=== PATIENT | female | born 1975 | race Caucasian/White ===

== ENCOUNTER 2017-05-29 22:09 | Emergency (ER) | payer MEDICAID, SELFPAY ==
[2017-05-29 22:11] VITALS: BP 102/73; PULSE 84; RESP 11; TEMP 36.1; O2SAT 91; BMI 37.6
[2017-05-29 22:32] LABS: Absolute Lymphocyte Count 3.66 X10^3/ul (0.83-4.51); Absolute Neutrophil Count 4.7 X10^3/uL (2.0-7.7); Basophil# 0.05 X10^3/uL; Basophil% 0.6 % (0-1); Eosinophil# 0.32 X10^3/uL; Eosinophils% 3.6 % (0-5); Hematocrit 40.4 % (37-47); Hemoglobin 13.7 g/dl (12.0-15.0); Lymphocyte # 3.66 X10^3/ul (4.0); Lymphocyte % 40.7 % (19-41); Mean Corp Hgb Conc 33.9 g/gl (32-36); Mean Corpuscular Hgb 31.5 pg (27.0-32.0); Mean Corpuscular Volume 92.9 fL (81-99); Mean Platelet Vol. 9.2 fl (6.2-12.0); Monocyte% 3.3 % (0-10); Neutrophil # 4.65 X10^3/uL (2.7-7.7); Neutrophil % 51.7 % (47-70); POSITIVE COUNT NO; POSITIVE DIFFERENTIAL NO; POSITIVE MORPHOLOGY NO; Platelet Count 216 K/mm3 (150-450); RBC Distribution Width CV 12.7 % (11.6-14.6); RBC Distribution Width SD 42.8 fl (35.1-43.9); Red Blood Count 4.35 M/mm3 (4.2-5.4)
[2017-05-29 22:54] LABS: Anion Gap 11 (5-15); BUN 7 mg/dL (7-18); BUN/Creat Ratio 12.5 RATIO (10-20); Chloride 106 mmol/L (98-107); Creatinine, Serum 0.56 mg/dL (0.55-1.02); EST Glomerular Filtration Rate 127 mL/min (>60); Est Glom Filt Rate - Afr Amer 154 mL/min (>60); Estimated Creatinine Clearance 104.56 ml/min; Glucose 86 mg/dL (74-106); Potassium 3.2 mmol/L (3.5-5.1); Sodium Level 142 mmol/L (136-145)
[2017-05-29 23:19] VITALS: BP 108/93; PULSE 105; RESP 17; O2SAT 97
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
[2017-05-29 23:47] LABS: Pregnancy, Serum, hCG Quali. NEGATIVE Negative (0-9 Nonpreg)
[2017-05-29 23:49] LABS: Amphetamine Urine VISTA NEGATIVE (<1000 ng/mL); Barbiturate Urine VISTA NEGATIVE (< 200 ng/mL); Benzodiazepine Urine VISTA NEGATIVE (< 200 ng/mL); Cocaine Urine VISTA NEGATIVE (< 300 ng/mL); Ecstacy Urine VISTA NEGATIVE (< 500 ng/mL); Methadone Urine VISTA NEGATIVE (< 300 ng/mL); PCP Urine VISTA NEGATIVE (< 25 ng/mL); THC Urine VISTA NEGATIVE (< 50 ng/mL); Vista UDS pH Range 6
[2017-05-30] VITALS (10 sets, daily range): BP systolic 87–129; BP diastolic 54–87; PULSE 63–89; RESP 15–19; O2SAT 94–98
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
== END 2017-05-30 08:22 | disposition home or self-care (01) ==
PROVIDERS: Emergency Provider Emergency Medicine
DX: F10.129 Alcohol abuse with intoxication, unspecified (principal); Y90.9 Presence of alcohol in blood, level not specified
CPT/HCPCS: 51702; 80048; 80307; 80320; 84703; 85025; 99285; J7030; A4216; G0480

== ENCOUNTER 2017-08-11 16:18 | Emergency (ER) | payer MEDICAID, SELFPAY ==
[2017-08-11 16:22] VITALS: BP 118/86; PULSE 100; PULSE 99; RESP 14; TEMP 36.7; O2SAT 96; BMI 35.9
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
[2017-08-11 17:13] LABS: Bacteria 0 SEEN /hpf (None Seen); Mucous, Urine 0 SEEN /hpf (<or=2+); White Blood Cells 0 SEEN /hpf (0-5)
[2017-08-11] MEDS: 0.9% Normal Saline 1,000 ML 150 ML IV (17:13)
[2017-08-11] MEDS: levETIRAcetam IV 1,000 MG/100 ML BAG 400 MG IV (17:13)
[2017-08-11 17:19] LABS: Absolute Lymphocyte Count 2.32 X10^3/ul (0.83-4.51); Absolute Neutrophil Count 3.6 X10^3/uL (2.0-7.7); Basophil# 0.07 X10^3/uL; Eosinophil# 0.37 X10^3/uL; Eosinophils% 5.5 % (0-5); Hematocrit 39.7 % (37-47); Hemoglobin 13.8 g/dl (12.0-15.0); Lymphocyte # 2.32 X10^3/ul (4.0); Lymphocyte % 34.8 % (19-41); Mean Corp Hgb Conc 34.8 g/gl (32-36); Mean Corpuscular Hgb 31.7 pg (27.0-32.0); Mean Corpuscular Volume 91.1 fL (81-99); Mean Platelet Vol. 9.4 fl (6.2-12.0); Monocyte# 0.27 X10^3/uL; Neutrophil # 3.63 X10^3/uL (2.7-7.7); Neutrophil % 54.6 % (47-70); Platelet Count 196 K/mm3 (150-450); RBC Distribution Width CV 13.5 % (11.6-14.6); RBC Distribution Width SD 44.8 fl (35.1-43.9); Red Blood Count 4.36 M/mm3 (4.2-5.4); White Blood Count 6.7 K/mm3 (4.4-11.0)
[2017-08-11 17:21] LABS: Anion Gap 9 (5-15); BUN 6 mg/dL (7-18); BUN/Creat Ratio 9.6 RATIO (10-20); Calcium,Total 8.1 mg/dL (8.5-10.1); Chloride 109 mmol/L (98-107); Creatinine, Serum 0.62 mg/dL (0.55-1.02); EST Glomerular Filtration Rate 112 mL/min (>60); Est Glom Filt Rate - Afr Amer 135 mL/min (>60); Estimated Creatinine Clearance 85.77 ml/min; Glucose 95 mg/dL (74-106); Potassium 3.7 mmol/L (3.5-5.1); Sodium Level 142 mmol/L (136-145)
[2017-08-11 17:21] LABS: Color, Urine Yellow (Yellow); Glucose, Dipstick Normal (Normal); Ketone-Dipstick Negative (Negative); Leukocyte Esterase-Dipstick Negative /ul (Negative); Nitrite-Dipstick Negative (Negative); Occult Blood-Urine 10 /ul (Negative); Protein-Dipstick Negative (Negative); Specific Gravity, Urine 1.005 (1.002-1.030); Urine Bilirubin Dipstick Negative (Negative); Urine Clarity Sl. Cloudy (Clear); Urine Urobilinogen Normal (Normal)
[2017-08-11 17:23] LABS: POSITIVE COUNT NO; POSITIVE DIFFERENTIAL NO; POSITIVE MORPHOLOGY NO
[2017-08-11 17:28] LABS: Red Blood Cells-Urine 0-5 SEEN /hpf (0-5); Squamous Epithelial Cells - UA 0-5 SEEN /hpf (5-10)
[2017-08-11 17:29] LABS: Amphetamine Urine VISTA NEGATIVE (<1000 ng/mL); Barbiturate Urine VISTA NEGATIVE (< 200 ng/mL); Benzodiazepine Urine VISTA NEGATIVE (< 200 ng/mL); Cocaine Urine VISTA NEGATIVE (< 300 ng/mL); Ecstacy Urine VISTA NEGATIVE (< 500 ng/mL); Methadone Urine VISTA NEGATIVE (< 300 ng/mL); PCP Urine VISTA NEGATIVE (< 25 ng/mL); THC Urine VISTA NEGATIVE (< 50 ng/mL); Vista UDS pH Range 6
[2017-08-11 17:33] LABS: Pregnancy, Serum, hCG Quali. NEGATIVE Negative (0-9 Nonpreg)
--- NOTE | 2017-08-11 18:05 | ED.RN ---
LAB CALLED WITH CRITICAL RESULT. ETOH LEVEL OF 374. DR. KELLER NOTIFIED FACE TO FACE OF RESULT. NO ORDERS GIVEN.
[2017-08-11 18:50] VITALS: BP 120/80; PULSE 95; RESP 14; O2SAT 99
[2017-08-11 21:10] VITALS: BP 128/70; PULSE 85; RESP 14; O2SAT 99
--- NOTE | 2017-08-11 23:00 | ED.DEP ---
ED Disposition - Plan for ED Patient: Disposition: Home or Assisted Living Chief Complaint: ETOH Intox Instructions: ED Alcohol Abuse Prescriptions: Levetiracetam [Keppra] 500 mg PO BID #60 tablet Referrals: Maryanne Carrion MD [STAFF PHYSICIAN] -
[2017-08-11 23:27] VITALS: BP 117/74; PULSE 80; RESP 18; O2SAT 96
[2017-08-12 01:12] VITALS: RESP 14
[2017-08-12 03:17] VITALS: RESP 12
[2017-08-12 05:28] VITALS: RESP 14
[2017-08-12 08:23] VITALS: BP 140/80; PULSE 88; RESP 20; O2SAT 98
[2017-08-12 09:28] VITALS: BP 160/84; PULSE 78; RESP 20
== END 2017-08-12 09:29 | disposition home or self-care (01) ==
PROVIDERS: Emergency Provider Emergency Medicine
DX: F10.129 Alcohol abuse with intoxication, unspecified (principal); Y90.9 Presence of alcohol in blood, level not specified; J44.9 Chronic obstructive pulmonary disease, unspecified; G40.909 Epilepsy, unspecified, not intractable, without status epilepticus; Z87.19 Personal history of other diseases of the digestive system; Z79.899 Other long term (current) drug therapy; Z72.0 Tobacco use
CPT/HCPCS: 80048; 80307; 80320; 81001; 84703; 85025; 96361; 96365; 96366; 99285; J7030; A4216; G0480

== ENCOUNTER 2017-08-22 23:55 | Emergency (ER) | payer MEDICAID, SELFPAY ==
[2017-08-22 23:56] VITALS: BP 111/78; PULSE 99; RESP 18; TEMP 36.8; O2SAT 94; BMI 34.6
--- NOTE | 2017-08-23 00:34 | CT_ITS ---
STUDY: CT BRAIN WITHOUT CONTRAST REASON FOR EXAM: Female, 42 years old. History of EtOH. Patient fell down steps. RADIATION DOSAGE (If Supplied By Facility): CTDIvol = ( 44.99 ) mGy, DLP = ( 745.49 ) mGycm TECHNIQUE: Transaxial CT imaging of the brain was performed without administration of intravenous contrast material. Individualized dose optimization techniques were used for this CT. COMPARISON: 04/08/2017. FINDINGS: Normal soft tissue structures. Normal calvarium. Normal size ventricles and extra-axial spaces for the patient's age. Normal white matter tracts of the cerebral hemispheres. Normal basal ganglia and thalami. Normal brainstem. Normal cerebellum. There is no intracranial hemorrhage. There are no findings of an acute ischemic infarction. There is mucosal thickening of the ethmoids sinuses bilaterally. CT/Brain/Head without Contrast IMPRESSION: No acute intracranial process. Sinus disease. Electronically Signed: Devan Abad MD at 1:59 EDT Tel , Service support ,
--- NOTE | 2017-08-23 00:34 | CT_ITS ---
STUDY: CT CERVICAL SPINE WITHOUT CONTRAST REASON FOR EXAM: Female, 42 years old. History of EtOH. Fell down steps. RADIATION DOSAGE (If Supplied By Facility): CTDIvol = ( 29.22 ) mGy, DLP = ( 578.29 ) mGycm TECHNIQUE: High resolution transaxial imaging was performed without contrast material. Sagittal and coronal images were reconstructed. Individualized dose optimization techniques were used for this CT. COMPARISON: None FINDINGS: Normal craniovertebral junction. Normal anterior atlantoaxial articulation. Normal odontoid process. There is reversal of the normal cervical lordosis. Normal vertebral bodies and posterior osseous elements. C2-3: Normal endplates. Normal disc height and morphology. Normal central canal and intervertebral neuroforamina. C3-4: Normal endplates. Normal disc height and morphology. Normal central canal and intervertebral neuroforamina. C4-5: Normal endplates. Normal disc height and morphology. Normal central canal and intervertebral neuroforamina. C5-6: Normal endplates. Normal disc height and morphology. Normal central canal and intervertebral neuroforamina. C6-7: Normal endplates. Normal disc height and morphology. Normal central canal and intervertebral neuroforamina. C7-T1: Normal endplates. Normal disc height and morphology. Normal central canal and intervertebral neuroforamina. Normal visualized soft tissue structures. CT/Spine Cervical without Contras IMPRESSION: Reversal of the normal cervical lordosis which could be due to muscle spasm. No demonstrated acute fracture or subluxation. Electronically Signed: Devan Abad MD at 1:57 EDT Tel , Service support ,
--- NOTE | 2017-08-23 00:37 | ED.DCSUM_ITS ---
- ER Visit Summary Date of Service: 08/23/17 Chief Complaint: [Fall] History of Present Illness: The patient is a 42 F [who presents the emergency department after a fall down 10 steps. She hit her head. She is a history of seizure disorder she does not know if she had a seizure or not. She has been drinking alcohol heavily. History is limited as the patient has to be constantly stimulated to answer any questions sometimes they are answered incoherently] Physical Examination: [] WN WD NAD unkempt PERRL EOMI horizontal nystagmus with lateral gaze MMM Tenderness to palpation at the base of the occiput NECK supple and tenderness at C1-C2, no masses RRR no murmur rub or gallop, no peripheral edema, symmetric radial pulses CTAB no respiratory distress ABDOMEN is soft and nontender, normal bowel sounds, no distension, no rebound or guarding SKIN sunburn on face chest and back with peeling Alert and Oriented x3, CN II-XII in tact, no motor or sensory deficits, ataxic gait slurred speech somnolent No lymphadenopathy Test Results: [] Emergency Department Course and Treatment: [She was given fluids BMP was sent. Alcohol and urine tox was sent. T of the head or neck given the history of fall with alcohol use patient's BMP mild showed mild hypocalcemia at 7.9. Chloride was 108. Patient was given 2 L of fluid. She is sleeping comfortably. Alcohol was 359. CT of the head and neck showed no acute injury except for reversal of normal cervical lordosis. Patient will be observed until clinically sober. She will be discharged home with referral to primary care.] Treatment Plan: [] Disposition: [discharge after period of observation] Impression: [1. Acute alcohol intoxication 2. Fall] This note was generated with [employer] dictation software. It may contain incorrect words, spelling, and punctuation that were not noted in review of the chart prior to signing ED Disposition - Plan for ED Patient: Chief Complaint: ETOH Intox Instructions: ED Alcohol Intoxication, ED Mechanical Fall, ED Alcohol Abuse Referrals: Zia Underwood MD [STAFF PHYSICIAN] - 5-7 Days
[2017-08-23] MEDS: 0.9% Normal Saline 1,000 ML 1000 ML IV ×2 (00:53→04:37)
[2017-08-23 01:26] LABS: Anion Gap 10 (5-15); BUN 5 mg/dL (7-18); BUN/Creat Ratio 7.8 RATIO (10-20); Calcium,Total 7.9 mg/dL (8.5-10.1); Chloride 108 mmol/L (98-107); Creatinine, Serum 0.64 mg/dL (0.55-1.02); EST Glomerular Filtration Rate 108 mL/min (>60); Est Glom Filt Rate - Afr Amer 131 mL/min (>60); Estimated Creatinine Clearance 83.09 ml/min; Glucose 98 mg/dL (74-106); Potassium 3.5 mmol/L (3.5-5.1); Sodium Level 144 mmol/L (136-145)
--- NOTE | 2017-08-23 01:57 | ED.RN ---
LAB CALLS WITH CRITICAL RESULT, ETOH 359, DR. ARMANDO MADE AWARE.
[2017-08-23 02:05] VITALS: BP 100/75; PULSE 70; RESP 16; O2SAT 96
--- NOTE | 2017-08-23 04:01 | ED.DEP ---
ED Disposition - Plan for ED Patient: Chief Complaint: ETOH Intox Instructions: ED Alcohol Intoxication, ED Alcohol Abuse, ED Mechanical Fall Referrals: Zia Underwood MD [STAFF PHYSICIAN] - 5-7 Days
[2017-08-23 04:42] VITALS: BP 90/71; PULSE 71; RESP 16; O2SAT 95
[2017-08-23 07:10] VITALS: BP 98/71; PULSE 87; RESP 14; O2SAT 97
[2017-08-23 08:30] VITALS: BP 106/82; PULSE 72; RESP 16; O2SAT 97
[2017-08-23 09:17] VITALS: BP 101/67; PULSE 70; RESP 16; O2SAT 98
== END 2017-08-23 09:18 | disposition home or self-care (01) ==
PROVIDERS: Emergency Provider Emergency Medicine
DX: F10.129 Alcohol abuse with intoxication, unspecified (principal); G40.909 Epilepsy, unspecified, not intractable, without status epilepticus; Z79.899 Other long term (current) drug therapy; Y90.8 Blood alcohol level of 240 mg/100 ml or more; W10.9XXA Fall (on) (from) unspecified stairs and steps, initial encounter
CPT/HCPCS: 70450; 72125; 80048; 80320; 99285; J7030; A4216; G0480

== ENCOUNTER 2017-08-30 16:23 | Emergency (ER) | payer MEDICAID, SELFPAY | END 2017-08-30 19:56 | disposition home or self-care (01) | LOC: ED 09-13 11:18 | PROVIDERS: Emergency Provider Emergency Medicine | DX: F15.129 Other stimulant abuse with intoxication, unspecified (principal); F10.20 Alcohol dependence, uncomplicated; Z72.89 Other problems related to lifestyle | CPT/HCPCS: 99284 ==

== ENCOUNTER 2017-09-14 19:26 | Emergency (ER) | payer MEDICAID, SELFPAY ==
[2017-09-14 19:29] VITALS: BP 96/61; PULSE 77; RESP 18; TEMP 35.6; O2SAT 96; BMI 31.9
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
[2017-09-14 21:00] VITALS: BP 98/72; PULSE 76; RESP 16; O2SAT 96
[2017-09-14 22:00] VITALS: BP 88/64; PULSE 70; RESP 16; O2SAT 98
[2017-09-14 23:00] VITALS: BP 91/71; PULSE 66; RESP 18; O2SAT 96
[2017-09-15 01:06] VITALS: RESP 18
== END 2017-09-15 01:07 | disposition home or self-care (01) ==
PROVIDERS: Emergency Provider Emergency Medicine
DX: F10.129 Alcohol abuse with intoxication, unspecified (principal); Y90.9 Presence of alcohol in blood, level not specified; E66.9 Obesity, unspecified; J44.9 Chronic obstructive pulmonary disease, unspecified; G40.909 Epilepsy, unspecified, not intractable, without status epilepticus; Z87.19 Personal history of other diseases of the digestive system; Z79.899 Other long term (current) drug therapy; Z72.0 Tobacco use
CPT/HCPCS: 99284

== ENCOUNTER 2017-09-17 07:04 | Emergency (ER) | payer MEDICAID, SELFPAY ==
[2017-09-17 07:06] VITALS: BP 112/82; PULSE 87; RESP 16; TEMP 36.3; O2SAT 97; BMI 31.9
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
[2017-09-17] MEDS: levETIRAcetam 500 MG Tablet PO (08:36)
[2017-09-17 09:16] VITALS: PULSE 92; RESP 14; O2SAT 98
[2017-09-17 10:24] VITALS: BP 123/77; PULSE 84; RESP 15; O2SAT 97
== END 2017-09-17 10:26 | disposition home or self-care (01) ==
PROVIDERS: Emergency Provider Emergency Medicine
DX: F10.10 Alcohol abuse, uncomplicated (principal); F15.10 Other stimulant abuse, uncomplicated; Z91.14 Patient's other noncompliance with medication regimen; G40.909 Epilepsy, unspecified, not intractable, without status epilepticus; E66.9 Obesity, unspecified; Z72.0 Tobacco use
CPT/HCPCS: 99284

== ENCOUNTER 2017-09-28 21:40 | Emergency (ER) | payer MEDICAID, SELFPAY ==
[2017-09-28 21:42] VITALS: BP 110/86; PULSE 76; RESP 20; TEMP 35.9; O2SAT 94; BMI 31.0
--- NOTE | 2017-09-28 22:12 | ED.DCSUM_ITS ---
- ER Visit Summary Date of Service: 09/28/17 Chief Complaint: Intoxication per EMS History of Present Illness: The patient is a 42 F who was brought to the ED by EMS for alcohol intoxication. The patient left without being seen by a physician. Police and nursing were standing by the room and did not feel the patient needed pink slipped. They said that the patient was alert and did not want to stay. They did not restrain or stop the patient from leaving. I was notified that the patient had left after they were already outside the facility and I did not see the patient. Physical Examination: Left without being seen Test Results: Left without being seen Emergency Department Course and Treatment: Left without being seen Treatment Plan: Left without being seen Disposition: Left without being seen Impression: Left without being seen This note was generated with [employer] dictation software. It may contain incorrect words, spelling, and punctuation that were not noted in review of the chart prior to signing ED Disposition - Plan for ED Patient: Chief Complaint: ETOH Intox Referrals: Care Physician,No Primary [Primary Care Provider] -
--- NOTE | 2017-09-28 22:14 | ED.RN ---
PT WALKED OUT OF THE ROOM. THIS NURSE ATTEMPTED TO CONVINCE THE PT TO GO BACK INTO THE ROOM. PT REFUSED. PT STATES FUCK YOU. THE POLICE SAID I CAN LEAVE. THE PT WALKED PAST THIS NURSE AND OUT THE EMS DOORS. S[employer]IP MANNING AND HAILY PARADA OFFICE OFFICERS IN THE DEPARTMENT. BOTH OFFICERS ATTEMPTED CONVINCE PT TO RETURN TO THE DEPARTMENT. PT REFUSED. SANDIP MANNING OFFICER INFORMED STAFF PT IS PERMITTED TO LEAVE. THEY WILL NOT BE TAKING THE PT INTO CUSTODY
== END 2017-09-28 22:10 | disposition home or self-care (01) ==
LOC: ED 23:21
PROVIDERS: Emergency Provider Emergency Medicine
DX: F10.129 Alcohol abuse with intoxication, unspecified (principal); Z53.21 Procedure and treatment not carried out due to patient leaving prior to being seen by health care provider
CPT/HCPCS: 99283

== ENCOUNTER 2017-10-25 20:59 | Emergency (ER) | payer MEDICAID, SELFPAY ==
[2017-10-25 21:22] LABS: Absolute Lymphocyte Count 2.94 X10^3/ul (0.83-4.51); Absolute Neutrophil Count 3.2 X10^3/uL (2.0-7.7); Basophil# 0.04 X10^3/uL; Basophil% 0.6 % (0-1); Eosinophil# 0.21 X10^3/uL; Eosinophils% 3.1 % (0-5); Hematocrit 43.4 % (37-47); Hemoglobin 14.7 g/dl (12.0-15.0); Lymphocyte # 2.94 X10^3/ul (4.0); Lymphocyte % 43.8 % (19-41); Mean Corp Hgb Conc 33.9 g/gl (32-36); Mean Corpuscular Hgb 32.5 pg (27.0-32.0); Mean Corpuscular Volume 95.8 fL (81-99); Monocyte# 0.35 X10^3/uL; Monocyte% 5.2 % (0-10); Neutrophil # 3.17 X10^3/uL (2.7-7.7); Neutrophil % 47.2 % (47-70); Platelet Count 165 K/mm3 (150-450); RBC Distribution Width CV 12.8 % (11.6-14.6); RBC Distribution Width SD 44.7 fl (35.1-43.9); Red Blood Count 4.53 M/mm3 (4.2-5.4); White Blood Count 6.7 K/mm3 (4.4-11.0)
[2017-10-25 21:23] VITALS: BP 98/50; PULSE 70; RESP 14; TEMP 35.9; O2SAT 95; BMI 28.5
[2017-10-25 21:23] LABS: POSITIVE COUNT NO; POSITIVE DIFFERENTIAL NO; POSITIVE MORPHOLOGY NO
[2017-10-25 21:33] LABS: Anion Gap 9 (5-15); BUN 4 mg/dL (7-18); BUN/Creat Ratio 6.9 RATIO (10-20); Chloride 107 mmol/L (98-107); Creatinine, Serum 0.58 mg/dL (0.55-1.02); EST Glomerular Filtration Rate 122 mL/min (>60); Est Glom Filt Rate - Afr Amer 148 mL/min (>60); Estimated Creatinine Clearance 119.49 ml/min; Glucose 99 mg/dL (74-106); Potassium 3.2 mmol/L (3.5-5.1); Sodium Level 141 mmol/L (136-145)
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
--- NOTE | 2017-10-25 21:47 | ED.RN ---
lab called with critical lab results. etoh level 435. Dr. Patrick made aware
[2017-10-25 22:13] VITALS: BP 89/64; RESP 14; TEMP 20.5; O2SAT 96
[2017-10-25 22:33] VITALS: BP 99/82; PULSE 70; RESP 16; O2SAT 97
[2017-10-25] MEDS: 0.9% Normal Saline 1,000 ML 1000 ML IV (22:33)
--- NOTE | 2017-10-25 23:10 | ED.RN ---
AWARE THAT PT IS NOT AWAKE ENOUGH TO SWALLOW MEDS
[2017-10-26] VITALS (9 sets, daily range): BP systolic 93–111; BP diastolic 61–80; PULSE 69–82; RESP 12–20; O2SAT 94–97
[2017-10-26] MEDS: levETIRAcetam 500 MG Tablet PO (01:37)
--- NOTE | 2017-10-26 08:43 | ED.RN ---
Pt awake and alert. She has steady gait in unit. Pt is asking about personal belongings and money. There is nothing charted about either nor is there any evidence of items in department. Verified with squad report of potential personal items. Pt leaves with steady and understands she had no personal property other than clothing she was wearing.
== END 2017-10-26 08:47 | disposition home or self-care (01) ==
LOC: ED 22:11
PROVIDERS: Emergency Provider Emergency Medicine
DX: F10.129 Alcohol abuse with intoxication, unspecified (principal); Y90.9 Presence of alcohol in blood, level not specified; G40.909 Epilepsy, unspecified, not intractable, without status epilepticus; Z79.899 Other long term (current) drug therapy; Z72.0 Tobacco use
CPT/HCPCS: 80048; 80320; 85025; 96360; 96361; 99284; J7030; A4216; G0480

== ENCOUNTER 2017-10-28 12:39 | Emergency (ER) | payer MEDICAID, SELFPAY ==
[2017-10-28 12:40] VITALS: BP 86/52; PULSE 86; RESP 16; TEMP 36.8; O2SAT 98; BMI 33.0
[2017-10-28 12:45] VITALS: O2SAT 88
[2017-10-28 13:00] VITALS: O2SAT 98
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
--- NOTE | 2017-10-28 13:17 | ED.DEP ---
ED Disposition - Plan for ED Patient: Chief Complaint: Substance Abuse Instructions: ED Drug Abuse General, ED Alcohol Abuse Referrals: Care Physician,No Primary [Primary Care Provider] -
[2017-10-28 13:21] LABS: Absolute Lymphocyte Count 2.95 X10^3/ul (0.83-4.51); Absolute Neutrophil Count 2.5 X10^3/uL (2.0-7.7); Basophil# 0.07 X10^3/uL; Basophil% 1.1 % (0-1); Eosinophil# 0.24 X10^3/uL; Eosinophils% 3.9 % (0-5); Hematocrit 45.4 % (37-47); Hemoglobin 15.8 g/dl (12.0-15.0); Lymphocyte # 2.95 X10^3/ul (4.0); Lymphocyte % 47.5 % (19-41); Mean Corp Hgb Conc 34.8 g/gl (32-36); Mean Corpuscular Hgb 32.8 pg (27.0-32.0); Mean Corpuscular Volume 94.4 fL (81-99); Mean Platelet Vol. 9.3 fl (6.2-12.0); Monocyte# 0.48 X10^3/uL; Monocyte% 7.7 % (0-10); Neutrophil # 2.47 X10^3/uL (2.7-7.7); Neutrophil % 39.8 % (47-70); POSITIVE COUNT NO; POSITIVE DIFFERENTIAL NO; POSITIVE MORPHOLOGY NO; Platelet Count 174 K/mm3 (150-450); RBC Distribution Width CV 12.6 % (11.6-14.6); Red Blood Count 4.81 M/mm3 (4.2-5.4); White Blood Count 6.2 K/mm3 (4.4-11.0)
[2017-10-28 13:30] LABS: Anion Gap 9 (5-15); BUN 5 mg/dL (7-18); BUN/Creat Ratio 7.6 RATIO (10-20); Calcium,Total 8.2 mg/dL (8.5-10.1); Chloride 107 mmol/L (98-107); Creatinine, Serum 0.66 mg/dL (0.55-1.02); EST Glomerular Filtration Rate 105 mL/min (>60); Est Glom Filt Rate - Afr Amer 127 mL/min (>60); Estimated Creatinine Clearance 80.57 ml/min; Glucose 117 mg/dL (74-106); Potassium 3.5 mmol/L (3.5-5.1); Sodium Level 142 mmol/L (136-145)
[2017-10-28] MEDS: 0.9% Normal Saline 1,000 ML 999 ML IV (13:35)
[2017-10-28] MEDS: levETIRAcetam 1,000 MG Tablet 1000 MG PO (13:35)
[2017-10-28 13:40] VITALS: BP 120/83; PULSE 84; RESP 16; O2SAT 99
[2017-10-28 13:45] LABS: Pregnancy, Serum, hCG Quali. NEGATIVE Negative (0-9 Nonpreg)
--- NOTE | 2017-10-28 14:16 | ED.RN ---
ok with pt leaving prior to getting paperwork bc she is anxious to get to the [facility] at 3 pm to visit. pt was cleaned up in ED and given paper scrubs. was able to drink coke and coffee and have sandwich. soap and toothbrush and toothpaste given. was told to take her keppra and that she truly needs detox.
== END 2017-10-28 14:19 | disposition home or self-care (01) ==
PROVIDERS: Emergency Provider Emergency Medicine
DX: F10.10 Alcohol abuse, uncomplicated (principal); Y90.9 Presence of alcohol in blood, level not specified; L55.9 Sunburn, unspecified
CPT/HCPCS: 80048; 84703; 85025; 96360; 99285; J7030; A4216

== ENCOUNTER 2017-10-31 02:23 | Emergency (ER) | payer MEDICAID, SELFPAY ==
[2017-10-31 02:24] VITALS: BP 133/100; PULSE 69; RESP 14; TEMP 36.6; O2SAT 97; BMI 31.4
--- NOTE | 2017-10-31 02:42 | ED.DEP ---
ED Disposition - Plan for ED Patient: Chief Complaint: General Illness Instructions: ED Alcohol Intoxication Prescriptions: Levetiracetam [Keppra] 500 mg PO BID #60 tablet Referrals: Care Physician,No Primary [Primary Care Provider] - Amara Arguello [NON-STAFF] -
--- NOTE | 2017-10-31 02:45 | ED.VISSUMM ---
- ER Visit Summary Date of Service: 10/31/17 Chief Complaint: Needs seizure medication History of Present Illness: The patient is a 42 F presenting stating that she lost her seizure medication. She normally takes Keppra 500 mg twice daily. She was concerned that she may have a seizure without this medication. She is intoxicated and states she drinks daily. She denies any trauma. Denies suicidal ideation. She ambulated to the ED room with a steady gait. Denies other complaints. Physical Examination: Vitals are stable. Patient is afebrile. Alert no acute distress. HEENT exam is unremarkable. Neck is supple. Lungs are clear and equal bilaterally. Heart is regular rate and rhythm. Abdomen is soft nontender nondistended. Extremities are unremarkable. Skin is warm and dry. No focal neurologic deficit. Remainder of exam is unremarkable. Emergency Department Course and Treatment: Patient is given Keppra and a prescription. She is awake and alert and has a steady gait. She is advised to follow-up with primary care physician. Advised return to ED if worsening complaints. Disposition: Discharge home Impression: Medication refill, alcohol intoxication This note was generated with [employer] dictation software. It may contain incorrect words, spelling, and punctuation that were not noted in review of the chart prior to signing ED Disposition - Plan for ED Patient: Chief Complaint: General Illness Instructions: ED Alcohol Intoxication Prescriptions: Levetiracetam [Keppra] 500 mg PO BID #60 tablet Referrals: Amara Arguello [NON-STAFF] - Care Physician,No Primary [Primary Care Provider] -
[2017-10-31] MEDS: levETIRAcetam 500 MG Tablet PO (02:50)
[2017-10-31 03:11] VITALS: RESP 20
== END 2017-10-31 03:12 | disposition home or self-care (01) ==
LOC: ED 02:45
PROVIDERS: Emergency Provider Emergency Medicine
DX: F10.129 Alcohol abuse with intoxication, unspecified (principal); Y90.9 Presence of alcohol in blood, level not specified; Z76.0 Encounter for issue of repeat prescription; G40.909 Epilepsy, unspecified, not intractable, without status epilepticus; Z79.899 Other long term (current) drug therapy; Z72.0 Tobacco use
CPT/HCPCS: 99284

== ENCOUNTER 2017-12-03 10:43 | Emergency (ER) | payer MEDICAID, SELFPAY ==
[2017-12-03 10:46] VITALS: BP 104/76; PULSE 73; PULSE 80; RESP 18; TEMP 36.6; O2SAT 95; O2SAT 97; BMI 34.0
[2017-12-03 11:35] LABS: International Normalized Ratio 0.9; Prothrombin Time (Protime)PT. 12.3 SECONDS (11.7-14.9)
[2017-12-03 11:39] LABS: Absolute Lymphocyte Count 2.34 X10^3/ul (0.83-4.51); Absolute Neutrophil Count 6.3 X10^3/uL (2.0-7.7); Basophil# 0.08 X10^3/uL; Basophil% 0.9 % (0-1); Eosinophil# 0.31 X10^3/uL; Eosinophils% 3.3 % (0-5); Hematocrit 45.3 % (37-47); Hemoglobin 15.6 g/dl (12.0-15.0); Lymphocyte # 2.34 X10^3/ul (4.0); Lymphocyte % 24.9 % (19-41); Mean Corp Hgb Conc 34.4 g/gl (32-36); Mean Corpuscular Hgb 33.2 pg (27.0-32.0); Mean Corpuscular Volume 96.4 fL (81-99); Mean Platelet Vol. 9.6 fl (6.2-12.0); Monocyte# 0.38 X10^3/uL; Neutrophil # 6.27 X10^3/uL (2.7-7.7); Neutrophil % 66.7 % (47-70); Platelet Count 242 K/mm3 (150-450); RBC Distribution Width CV 12.6 % (11.6-14.6); RBC Distribution Width SD 43.5 fl (35.1-43.9); White Blood Count 9.4 K/mm3 (4.4-11.0)
[2017-12-03 11:40] LABS: POSITIVE COUNT NO; POSITIVE DIFFERENTIAL NO; POSITIVE MORPHOLOGY NO
[2017-12-03 11:49] VITALS: BP 104/68
[2017-12-03 11:51] LABS: ALB/GLOB Ratio 0.8 RATIO (0.9-2.4); AST(SGOT) 89 U/L (15-37); Alanine Aminotransfer ALT/SGPT 94 U/L (13-56); Albumin, Serum 3.5 g/dL (3.2-5.0); Alkaline Phosphatase 164 U/L (45-117); Anion Gap 10 (5-15); BUN 6 mg/dL (7-18); BUN/Creat Ratio 9.7 RATIO (10-20); Calcium,Total 8.8 mg/dL (8.5-10.1); Chloride 106 mmol/L (98-107); Creatinine, Serum 0.62 mg/dL (0.55-1.02); EST Glomerular Filtration Rate 113 mL/min (>60); Est Glom Filt Rate - Afr Amer 137 mL/min (>60); Estimated Creatinine Clearance 85.77 ml/min; Globulin 4.3 g/dL (2.2-4.2); Glucose 119 mg/dL (74-106); Potassium 3.8 mmol/L (3.5-5.1); Protein, Total 7.8 g/dL (6.4-8.2); Sodium Level 143 mmol/L (136-145)
[2017-12-03 12:39] VITALS: PULSE 78; RESP 20
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
[2017-12-03 15:24] VITALS: BP 96/58; PULSE 70; RESP 14; O2SAT 98
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
[2017-12-03 16:20] VITALS: RESP 14
== END 2017-12-03 15:40 | disposition home or self-care (01) ==
PROVIDERS: Emergency Provider Emergency Medicine
DX: F10.10 Alcohol abuse, uncomplicated (principal); Y90.9 Presence of alcohol in blood, level not specified; G40.909 Epilepsy, unspecified, not intractable, without status epilepticus; Z53.21 Procedure and treatment not carried out due to patient leaving prior to being seen by health care provider; S40.012A Contusion of left shoulder, initial encounter; W34.010A Accidental discharge of airgun, initial encounter; Y93.9 Activity, unspecified; Y92.9 Unspecified place or not applicable; E66.9 Obesity, unspecified; Z79.899 Other long term (current) drug therapy
CPT/HCPCS: 70450; 72125; 73030; 80053; 80320; 85025; 85610; 99284; G0480

== ENCOUNTER 2018-03-07 23:12 | Emergency (ER) | payer MEDICAID, SELFPAY ==
[2018-03-07 23:13] VITALS: PULSE 101; RESP 16; TEMP 36.1; O2SAT 96; BMI 36.5
--- NOTE | 2018-03-07 23:24 | CT_ITS ---
HISTORY: Fall/LAC rt forehead TECHNIQUE: Multiple axial images were obtained of the brain without intravenous contrast. A radiation dose optimization technique was used for this scan. IV Contrast dosage and agent: None. COMPARISON: 08/23/2017 FINDINGS: Normal ventricles. Smith-white matter differentiation appears normal. No intracranial mass, hemorrhage, or acute disease. Posterior fossa structures are on remarkable. No suspicious extra-axial fluid collection. Right frontal small superficial scalp hematoma. No underlying calvarial fracture. Partial opacification of the ethmoid air cells bilaterally. The mastoids appear clear. CT/Brain/Head without Contrast IMPRESSION: 1. Normal CT brain without contrast. 2. Small superficial scalp hematoma, right frontal region 3. Bilateral ethmoid sinusitis. Individualized dose optimization techniques were used for this CT. at 0955 Reported and signed by: Osorio Jonas MD Electronically Signed: Osorio Jonas, at 0:04 EST Tel , Service support ,
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
--- NOTE | 2018-03-08 01:00 | ED.DEP ---
ED Disposition - Plan for ED Patient: Disposition: Home or Assisted Living Chief Complaint: Fall Instructions: ED Laceration All Referrals: Care Physician,No Primary [Primary Care Provider] - Dominguez Singh DO [NON CLINICAL AFFILIATE] - Additional Instructions: stitches to be removed in 2 weeks
[2018-03-08 01:10] VITALS: BP 120/60; PULSE 78; RESP 16; O2SAT 96
--- OUTSIDE RECORDS SUMMARY | 2018-04-23 15:52 | XMS RPT_ITS ---
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 IM GRAN % 0.100 Result Comment: IG% - Immature Granulocytes (promyelocytes, myelocytes and metamyelocytes) > 1% indicates that a LEFT SHIFT is Present. LAB L100.2620 2.0-7.7 X10 3/uL Normal Absolute Neut 4.7 LAB L100.2720 0.83-4.51 X10 3/ul Normal Absolute Lymph 3.66 Performed By: #### L100.0100 #### [facility] [address] [place] [address]. [place], [address] BASIC METABOLIC Collected: 05/29/2017 Status: F Source: ABILENE PROFILE (BMP) 10:20 PM [facility] [place] TYPE CODE TESTS RESULT OUT OF RANGE REFERENCE UNITS LAB L501.0100 74-106 mg/dL Normal GLU 86 Result Comment: Please note revised GLUCOSE reference range effective 2017. LAB L501.1000 7-18 mg/dL Normal BUN 7 LAB L501.1100 0.55-1.02 mg/dL Normal CREAT,SERUM 0.56 Result Comment: The validity of the calculated GFR AND GFRAA in patients over 70 years has not been determined. Clinical correlation is essential. LAB L501.1110 >60 mL/min Normal EST GFR 127 Result Comment: Non- GFR Calc LAB L501.1115 >60 mL/min Normal EST GFR - AA 154 Result Comment: GFR Calc LAB L501.1255 ml/min Normal Estimated CRCL 104.56 LAB L501.1300 10-20 RATIO BUN/CRE Normal 12.5 LAB L501.2200 8.5-10 mg/dL Low .1 CA 8.0 LAB L501.5300 136-14 mmol/L 5 NA Normal 142 LAB L501.5600 3.5-5. mmol/L Low 1 K 3.2 LAB L501.5900 98-107 mmol/L CL Normal 106 LAB L501.6100 21.0-3 mmol/L 2.0 CO2 Normal 25.0 LAB L501.6200 5-15 GAP Normal 11 Performed By: #### L500.2500 #### [facility] [address], [place], [address] ALCOHOL, BLOOD Collected: 05/29/2017 Status: F Source: JUAN J (MEDICAL)-SERUM 10:20 PM [facility] [place] TYPE CODE TESTS RESULT OUT OF RANGE REFERENCE UNITS LAB L501.9100 mg/dL High alert SERUM 375.0 ETOH Result Comment: Critical Result(s) Called at: 23:03:41 05/29/2017 by: Dot austin [facility] The serum:whole blood ethanol ratio is approximately 1.14 and varies slightly with hematocrit. Medical Alcohol reference interval and critical value in non-tolerant individuals; 50 - 100 Impairment 100 Intoxication 100 - 250 Severe Poisoning 250 - 400 Deep/possible fatal coma Performed By: #### L501.9100 #### [facility] [address], [place], [address] ,SERUM,HCG QUALI. Collected: Status: F Source: JUAN J 05/29/2017 10:20 PM [facility] [place] [place] TYPE CODE TESTS RESULT OUT OF REFERENCE UNITS RANGE LAB L700.7000 0-9 Nonpreg Negative Normal HCGSQUAL NEGATIVE LAB L700.6700 =>Qualitative mIU/mL Normal HCG Qual < 1 triggr Performed By: #### L700.6800 #### [facility] [address] [place], [address] ALLERGIES ALLERGIES DATE TYPE / CODE NAME / CODE REACTION SEVERITY SOURCE 03/07/2018 Drug Penicillins/F001 Hives Unknown [facility]416 649107(RXNORM) [facility] 343446(SNOM Repository ED CT) 03/07/2018 Drug aspirin/[id number] Unknown Unknown [facility]/416 87(RXNORM) Hospital 551025(SNOM Repository ED CT) 03/07/2018 Drug latex/[id number] Itching Unknown [facility]/416 (RXNORM) [facility] 646835(SNOM Repository ED CT) 03/07/2018 Drug pear/[id number]( Hives Unknown [facility]/416 RXNORM) [facility] 908524(SNOM Repository ED CT) 03/07/2018 Drug shellfish Hives Unknown [facility] All[facility]/416 derived/[id number] Hospital 775975(SNOM 54(RXNORM) Repository ED CT) ENCOUNTERS ENCOUNTERS ADMIT/DISCHARGE ACCOUNT ADMITTING ENCOUNTER LOCATION SOURCE NUMBER CLASS 03/07/2018/ [id number] Emergency Juan J [place] 8 1 [facility] ing:ED Repository 12/03/2017/ [id number] Emergency [place] Juan J 8 4 [facility] ing:ED Repository 10/31/2017/ [id number] Emergency Juan J [facility] 8 7 [facility] ing:ED Repository 10/28/2017/ [id number] Emergency Juan J [place] 8 9 [facility] ing:ED Repository 10/25/2017/ [id number] Emergency Juan J [place] 8 0 [facility] ing:ED Repository 09/28/2017/ [id number] Emergency Juan J [facility] 8 4 [facility] ing:ED Repository 09/17/2017/ [id number] Emergency Juan J [place] 8 6 [facility] ing:ED Repository 09/14/2017/ [id number] Emergency [place] 8 1 [facility] ing:ED Repository 08/30/2017/ [id number] Emergency [place] Juan J 8 0 [facility] ing:ED Repository 08/22/2017/ [id number] Emergency Juan J [facility] 8 7 [facility] ing:ED Repository 08/11/2017/ [id number] Emergency [place] 8 9 [facility] ing:ED Repository 07/13/2017/ [id number] Ambulatory Juan J [place] 8 5 [facility] ing:ED Repository 05/29/2017/ [id number] Emergency [facility] J [place] 8 1 [facility] ing:ED Repository PAYERS PAYERS ENCOUNTER GUARANTOR PAYER SUBSCRIBER SOURCE 03/07/2018 CATHY E Primary CATHY E [facility] [id number] N Insurance:CARESOURCEP SOVELDOB: [facility] Number: [id number], [place] [id number] Repository 00[address]Tve: [phone]) Date:2018-03-07P O [phone] () [address]ATTN: [place] [address]KC: 03/07/2018 Secondary NOT GIVENUNK [place] Insurance:SELF PAY [facility] Number: Effective Repository Date:2018-03-07 12/03/2017 CATHY E Primary CATHY E [place] [id number] N Insurance:CARESOURCEP SOVELDOB: [facility] Number: [id number], [place] [id number] Repository 91[address]Zuc: [phone]) Date:2017-12-03P O [phone] () [address]ATTN: [place] [address]UC: 12/03/2017 Secondary NOT GIVENUNK [place] Insurance:SELF PAY [facility] Number: Effective Repository Date:2017-12-03 10/31/2017 CATHY E Primary CATHY E [place] [id number] N Insurance:CARESOURCEP SOVELDOB: [facility] Number: [id number], [place] [id number] Repository [address]Rle: [phone]) Date:2017-10-31P O [phone] () [address]ATTN: [place] [address]W[place]: 10/31/2017 Secondary NOT GIVENUNK [place] Insurance:SELF PAY [facility] Number: Effective Repository Date:2017-10-31 10/28/2017 CATHY E Primary CATHY E Juan J [id number] N Insurance:CARESOURCEP SOVELDOB: [facility] Number: [id number], [place] [id number] Repository 227[address]Pyi: [phone]) Date:2017-10-28P O [phone] () [address]ATTN: [place] [address]US: 10/28/2017 Secondary NOT GIVENUNK Juan J Insurance:SELF PAY [facility] Number: Effective Repository Date:2017-10-28 10/25/2017 CATHY E Primary CATHY E Juan J [id number] N Insurance:CARESOURCEP SOVELDOB: [facility] Number: [id number], [place] [id number] Repository [address]Qvk: [phone] Date:2017-10-25P O [phone] () [address]ATTN: [place] [address]HN: 10/25/2017 Secondary NOT GIVENUNK Juan J Insurance:SELF PAY [facility] Number: Effective Repository Date:2017-10-25 09/28/2017 CATHY E Primary CATHY E [place] [id number] N Insurance:CARESOURCEP SOVELDOB: [facility] Number: [id number], [place] [id number] Repository [address]Dax: [phone]) Date:2017-09-28P O [phone] () [address]ATTN: [place] [address]KT: 09/28/2017 Secondary NOT GIVENUNK Juan J Insurance:SELF PAY [facility] Number: Effective Repository Date:2017-09-28 09/17/2017 CATHY E Primary CATHY E [place] [id number] N Insurance:CARESOURCEP SOVELDOB: [facility] Number: [id number], [place] [id number] Repository [address]Zbq: [phone] Date:2017-09-17P O [phone] (HP) [address]ATTN: [place] [address]TM: 09/17/2017 Secondary NOT GIVENUNK [place] Insurance:SELF PAY [facility] Number: Effective Repository Date:2017-09-17 09/14/2017 CATHY E Primary CATHY E [place] [id number] N Insurance:CARESOURCEP SOVELDOB: [facility] Number: [id number], [place] [id number] Repository [address]Yji: ([phone]) Date:2017-09-14P O [phone] (HP) [address]ATTN: [place] [address]GP: 09/14/2017 Secondary NOT GIVENUNK Juan J Insurance:SELF PAY [facility] Number: Effective Repository Date:2017-09-14 08/30/2017 Cathy E Primary Cathy E [place] [id number] N Insurance:CARESOURCEP SovelDOB: [facility] Number: [id number], [place] [id number] Repository [address]Kfc: ([phone]) Date:2017-08-30P O [phone] (HP) [address]ATTN: [place] [address]OO: 08/30/2017 Secondary NOT GIVENUNK [place] Insurance:SELF PAY [facility] Number: Effective Repository Date:2017-08-30 08/22/2017 Cathy E Primary Cathy E Juan J SovelHOMELESSWOO Insurance:CARESOURCEP SovelDOB[place] [facility] [place] Number: [id number] [address]Cml: 330 [id number] Repository [phone] (HP) Date:2017-08-22P O [address]ATTN: [place] [address]SZ: 08/22/2017 Secondary NOT GIVENUNK [place] Insurance:SELF PAY [facility] Number: Effective Repository Date:2017-08-22 08/11/2017 Cathy E Primary Cathy E Juan J SovelHOMELESSWOO Insurance:CARESOURCEP SovelDOB: [facility] Number: [id number] [address]Yzl: 330 [id number] Repository [phone] () Date:2017-08-11P O [address]ATTN: [place] [address]JT: 08/11/2017 Secondary NOT GIVENUNK Juan J Insurance:SELF PAY [facility] Number: Effective Repository Date:2017-08-11 07/13/2017 Cathy E Primary NOT GIVENUNK [place] SovelHOMELESSWOO Insurance:SELF PAY [place] [address]Wrf: [phone]) Number: Effective Repository [phone] () Date:2017-07-13 05/29/2017 Cathy E Primary Cathy E Juan J SovelHOMELESSWOO Insurance:CARESOURCEP SovelDOB: [facility] [place] Number: [id number] [facility] [address]Suv: ([phone] [id number] Repository [phone] (HP) Date:2017-05-29P O [address]ATTN: [place] [address]YH: 05/29/2017 Secondary NOT GIVENUNK Juan J Insurance:SELF PAY [facility] Number: Effective Repository Date:2017-05-29
== END 2018-03-08 01:10 | disposition home or self-care (01) ==
PROVIDERS: Emergency Provider Emergency Medicine
DX: S01.81XA Laceration without foreign body of other part of head, initial encounter (principal); R40.2410 Glasgow coma scale score 13-15, unspecified time; W22.8XXA Striking against or struck by other objects, initial encounter; Y93.9 Activity, unspecified; Y92.9 Unspecified place or not applicable; E66.9 Obesity, unspecified; F10.20 Alcohol dependence, uncomplicated; G40.909 Epilepsy, unspecified, not intractable, without status epilepticus; Z79.899 Other long term (current) drug therapy; Z72.0 Tobacco use
CPT/HCPCS: 12011; 70450; 99284

== ENCOUNTER → 2018-11-07 | Outpatient (REF) | payer SELFPAY ==
[2018-11-07 12:03] VITALS: BP 100/75; PULSE 70; RESP 16; TEMP 36.9; O2SAT 99; BMI 36.5
--- NOTE | 2018-11-07 12:07 | EKG12_ITS ---
Test Reason : MEDICAL CLEARANCE Blood Pressure : / mmHG Vent. Rate : 071 BPM Atrial Rate : 071 BPM P-R Int : 120 ms QRS Dur : 090 ms QT Int : 384 ms P-R-T Axes : 018 044 034 degrees QTc Int : 417 ms Normal sinus rhythm Normal ECG Confirmed by MANJEET LOWE, CR ([id number]), editor farm journal TIGRE CARDOZO ([id number]) on 11/11/2018 12:57:14 PM Referred By: ROBBIE Confirmed By:CELINA BURROUGHS MD
--- NOTE | 2018-11-07 12:10 | ED.VIS.GEN ---
History of Present Illness Chief Complaint: Suicidal Informant: Patient Current Severity: Moderate Maximum Severity: Moderate Narrative: Patient is here for medical clearance. She has no physical complaints, she feels depressed and suicidal, she is in [facility] and the plan is that she goes back to [facility]. She needs medical clearance for [facility]. She denies any chest pain shortness of breath fever chills. No urinary symptoms denies . Past Medical History - Allergies and Home Meds Allergies/Adverse Reactions: Allergies aspirin Allergy (Verified 11/07/18 12:06) Unknown latex Allergy (Verified 11/07/18 12:06) Itching pear [Pear] Allergy (Verified 11/07/18 12:06) Hives Penicillins Allergy (Verified 11/07/18 12:06) Hives shellfish derived Allergy (Verified 11/07/18 12:06) Hives Primary Care Physician: Care Physician,No Primary [Primary Care Provider] - Past Medical History: - - Psychiatric illness Surgical History: noncontributory Smoking Status: Current every day smoker Review of Systems All systems negative except as indicated General: Denies: Fever Eyes: Denies: Visual changes - bilaterally Cardiovascular: Denies: Chest pain Respiratory: Denies: Dyspnea, Cough Gastrointestinal: Denies: Abdominal pain, Nausea Genitourinary: Denies: Dysuria Musculoskeletal: Denies: Myalgias Skin: Denies: Rash Neurological: Denies: Headache, Weakness Psych: Reports: Depression, Anxiety, Suicidal thoughts Physical Exam Vital Signs/Narrative: Vital Signs Temp Pulse Resp BP Pulse Ox 11/07/18 12:03 98.4 F 70 16 100/75 99 General: Well nourished, Well developed Eyes: Perrl, EOMI ENT: Moist mucous membranes, Nasal congestion Cardiovascular: Regular rate Respiratory: No distress, CTA bilaterally Abdomen: Soft, Nontender Back: Nontender, Normal Inspection Extremities: Nontender, No edema Skin: Normal color Neurological: Alert, Oriented x3, Normal Sensation Psychological: - - Flat and different affect Diagnostic/Tx/Re-eval - Medical Decision Making Patient will be medically cleared. She will be sent back in the care of police officers to [facility] to [facility] transfer to [facility]. ED Disposition - Plan for ED Patient: Disposition: Psychiatric Hospital or Unit Diagnosis: Depression Instructions: Depression Referrals: Care Physician,No Primary [Primary Care Provider] - 3-5 Days
--- NOTE | 2018-11-07 12:14 | CM.ED ---
Social Work Patient here from Nursing Home for medical clearance. Crisis to following. Jovan Williamson E LEARNING MANAGER, UZMA
[2018-11-07 12:34] LABS: Absolute Lymphocyte Count 2.95 X10^3/uL (0.83-4.51); Absolute Neutrophil Count 4.4 X10^3/uL (2.0-7.7); Basophil# 0.04 X10^3/uL; Basophil% 0.5 % (0-1); Eosinophil# 0.33 X10^3/uL; Hematocrit 37.9 % (37-47); Hemoglobin 13.2 g/dL (12.0-15.0); Lymphocyte # 2.95 X10^3/ul (4.0); Lymphocyte % 35.7 % (19-41); Mean Corp Hgb Conc 34.8 g/dL (32-36); Mean Corpuscular Hgb 31.2 pg (27.0-32.0); Mean Corpuscular Volume 89.6 fL (81-99); Mean Platelet Vol. 10.1 fl (6.2-12.0); Monocyte# 0.54 X10^3/uL; Monocyte% 6.5 % (0-10); NRBC Flagged by Analyzer 0 % (0-5); Neutrophil # 4.39 X10^3/uL (2.7-7.7); Neutrophil % 53.1 % (47-70); Platelet Count 224 K/mm3 (150-450); RBC Distribution Width CV 11.8 % (11.6-14.6); RBC Distribution Width SD 37.9 fl (35.1-43.9); Red Blood Count 4.23 M/mm3 (4.2-5.4); White Blood Count 8.3 K/mm3 (4.4-11.0)
[2018-11-07 12:49] LABS: ALB/GLOB Ratio 0.9 RATIO (0.9-2.4); AST(SGOT) 12 U/L (15-37); Alanine Aminotransfer ALT/SGPT 21 U/L (13-56); Albumin, Serum 3.4 g/dL (3.2-5.0); Alkaline Phosphatase 83 U/L (45-117); Anion Gap 7 (5-15); BUN 11 mg/dL (7-18); BUN/Creat Ratio 16.8 RATIO (10-20); Calcium,Total 8.9 mg/dL (8.5-10.1); Chloride 104 mmol/L (98-107); Creatinine, Serum 0.65 mg/dL (0.55-1.02); EST Glomerular Filtration Rate 105 mL/min (>60); Est Glom Filt Rate - Afr Amer 128 mL/min (>60); Estimated Creatinine Clearance 80.99 ml/min; Globulin 3.6 g/dL (2.2-4.2); Glucose 113 mg/dL (74-106); Sodium Level 139 mmol/L (136-145)
[2018-11-07 13:00] LABS: Internal QC Validated? YES +Cl - CLEAR BKGD; Pregnancy, Serum, hCG Quali. NEGATIVE Negative
[2018-11-07 13:21] LABS: Amphetamine Urine VISTA NEGATIVE (<1000 ng/mL); Barbiturate Urine VISTA NEGATIVE (< 200 ng/mL); Benzodiazepine Urine VISTA NEGATIVE (< 200 ng/mL); Cocaine Urine VISTA NEGATIVE (< 300 ng/mL); Ecstacy Urine VISTA NEGATIVE (< 500 ng/mL); Methadone Urine VISTA NEGATIVE (< 300 ng/mL); PCP Urine VISTA NEGATIVE (< 25 ng/mL); THC Urine VISTA NEGATIVE (< 50 ng/mL); Vista UDS pH Range 5
--- NOTE | 2018-11-07 14:22 | ED.RN ---
Lab results faxed to the retirement,
== END | disposition home or self-care (01) ==
LOC: ED 13:41
PROVIDERS: Emergency Provider Emergency Medicine; Visit Provider Emergency Medicine
DX: F32.9 Major depressive disorder, single episode, unspecified (principal); F41.9 Anxiety disorder, unspecified; F17.200 Nicotine dependence, unspecified, uncomplicated
CPT/HCPCS: 80053; 80307; 80320; 84703; 85025; 93005; 99283; G0480

== ENCOUNTER 2022-01-10 09:16 | Emergency (ER) | payer MEDICAID, SELFPAY ==
[2022-01-10 09:20] VITALS: BP 123/87; PULSE 118; RESP 22; TEMP 36.8; O2SAT 97; BMI 39.0
--- NOTE | 2022-01-10 09:33 | CT_ITS ---
STUDY: CT ABDOMEN AND PELVIS WITHOUT CONTRAST REASON FOR EXAM: Female, 46 years old. Nausea and vomiting and diarrhea. RADIATION DOSAGE (If Supplied By Facility): CTDIvol = ( 20.72 ) mGy, DLP = ( 962.61 ) mGycm TECHNIQUE: Transaxial images were obtained from the dome of the diaphragm to the symphysis pubis without oral contrast, and without intravenous contrast. Sagittal and coronal images were reconstructed. Individualized dose optimization techniques were used for this CT. COMPARISON: Comparison is made with prior study 01/28/2013. FINDINGS: The visualized lung bases are unremarkable. The visualized portions of the heart are within normal limits. There is decreased attenuation of the liver consistent with steatosis. Normal gallbladder and extrahepatic biliary system. Normal spleen. Normal pancreas. Normal bilateral adrenal glands. 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 Normal left kidney. Normal visualized stomach. Normal small intestine. There is evidence of a mural thickening of the cecum and ascending colon and transverse colon down to the region of the splenic flexure. This is suggestive of colitis. Mild degree of mural thickening of the descending colon as well as the sigmoid and rectum. The appendix is visualized and appears normal. Normal abdominal aorta. Normal inferior vena cava. Normal retroperitoneum. Normal urinary bladder. There is evidence of bilateral tubal ligation. Normal abdominal wall. There are mild degenerative changes of the visualized lumbar spine. CT/Abdomen/Pelvis without Cont IMPRESSION: Findings suggestive of a pancolitis. Fatty infiltration of the liver. Electronically Signed: Nick Ruggiero MD at 11:10 EDT ,
--- NOTE | 2022-01-10 09:36 | EDS_ITS ---
HPI History of Present Illness Chief Complaint: Nausea/Vomiting/Diarrhea Detail of Chief Complaint: Patient presents with complaint of depression and diarrhea Informant: patient Narrative Narrative: Patient presents the emergency department with multiple complaints today. Patient states that she has been without her medications for weeks which include Keppra for seizure disorder as well as Effexor for depression. Patient also supposed to be on cholesterol medicine and thyroid medicine. She tells me she currently does not have a primary care physician. Patient is feeling very depressed. Patient has been staying with a friend and otherwise is homeless. Patient also has been having abdominal pain for couple weeks and has been having diarrhea for couple weeks. She denies blood in her stool or black tarry stool. She denies nausea or vomiting. Patient was last admitted to a psychiatric facility several months ago. Patient wants to speak with a counselor and feels like she may require admission to psychiatric facility again. Patient describes some hallucinations that were auditory last evening with an unrecognized voice telling her to hurt her self. Patient states that she try to take scissors and scratch and cut her arms but did not cause any significant injury. She has ongoing thoughts of self-harm. Patient denies visual hallucinations. Prior similar symptoms: Yes PFSH PFS Home Medications levetiracetam 500 mg tablet 500 mg PO BID #60 tabs 10/25/17 [Rx Last Taken Unknown] mesalamine 1.2 gram tablet,delayed release 2.4 g PO DAILY 8 weeks #112 tabs 01/10/22 [Rx Last Taken Unknown] prednisone 20 mg tablet 40 mg PO DAILY #14 tabs 01/10/22 [Rx Last Taken Unknown] Allergy/AdvReac Type Severity Reaction Status Date / Time aspirin Allergy Unknown Verified 01/10/22 09:19 latex Allergy Itching Verified 01/10/22 09:19 pear [Pear] Allergy Hives Verified 01/10/22 09:19 Penicillins Allergy Hives Verified 01/10/22 09:19 shellfish derived Allergy Hives Verified 01/10/22 09:19 Social History Smoking Status: Current every day smoker tobacco type: cigarettes ROS ROS ED Review of Systems ROS Unobtainable: other Constitutional Constitutional ED: Reports lethargy; Denies chills, fever(s), sweats or weight loss Eyes Eyes: Denies blurry vision, change in vision or diplopia ENT ENT ED: Denies rhinorrhea or sore throat Cardiovascular Cardiovascular: Denies chest pain, orthopnea or racing heartbeat Respiratory/Chest Respiratory/Chest: Denies cough, dyspnea, dyspnea on exertion, orthopnea or sputum Gastrointestinal Gastrointestinal: Reports diarrhea; Denies abdominal pain, nausea or vomiting Genitourinary Genitourinary ED: Denies dysuria, hematuria or urinary frequency Musculoskeletal Musculoskeletal: Denies arthralgias, back pain, myalgias or neck pain Integumentary Denies abscess, Abrasions or rash Neurologic Neurologic: Denies headache(s) or weakness Psychiatric Psychiatric: Reports depression and suicidal thoughts; Denies anxiety Endocrine Endocrinology: Denies polydipsia, polyphagia or polyuria Hematologic/Lymphatic Hematologic/Lymphatic: Denies easy bleeding, easy bruising or lymphadenopathy Allergic/Immunologic Allergic/Immunologic ED: Denies mouth swelling, tongue swelling or urticaria EXAM Physical Exam Const Vital Signs: 01/10/22 09:20 Temperature 98.2 F Temperature Source Temporal Pulse Rate 118 H Respiratory Rate 22 H Blood Pressure 123/87 H Blood Pressure Mean 99 Pulse Ox 97 Oxygen Delivery Method Room Air Positive well nourished and well developed General Appearance ED: well developed and NAD HEENT Reports TM's clear and moist mucous membranes normocephalic and atraumatic; Negative for trauma or tenderness Tympanic Membrane ED: Yes TM's clear Eyes PERRL and EOMs intact bilaterally General Eye ED: Negative for pale conjunctiva or scleral icterus Neck no lymphadenopathy, supple and no JVD General: Negative for tenderness Chest Wall inspection of chest normal and palpation of chest normal Chest: Negative for tenderness Resp normal respiratory effort and clear to auscultation bilaterally Effort and Inspection: Negative for respiratory distress or pain with movement Auscultation: Negative for rhonchi, wheezes or diminished lung sounds Cardio regular rate, regular rhythm, S1 normal heart sound, S2 normal heart sound and no murmurs Peripheral Pulses: pulses 2+ throughout GI normal to inspection, nondistended, normoactive bowel sounds, soft to palpation, non-distended and no masses GI Narrative: Tender to palpation over the right lower quadrant with some guarding. There is no rebound, rigidity, or peritoneal signs. Back/Spine no CVA tenderness and no thoracic nor lumbar tenderness Extremity normal to inspection General Extremety ED: Negative for edema General Extremity: Negative for edema Neuro oriented x3, CN's II-XII intact bilaterally, no sensory deficits noted and gait normal Sensorium / Orientation: awake, alert, oriented to person, oriented to place and oriented to time Motor Exam: strength 5/5 throughout and strength abnormal Psych mental status grossly normal Skin no rashes or lesions noted and no wounds MDM MDM MDM Narrative Medical decision making narrative: IV line established on arrival. Patient had lab work-up that was unremarkable. Toxicology screen was negative. Alcohol was negative. Urinalysis was unremarkable. CT scan of the abdomen pelvis showed pancolitis. I did send off stool for C. difficile and enteric pathogen's however these results will be pending. Patient clinically does not look ill. I had patient evaluated by social services manager and at this time it is felt patient not acutely suicidal and can contract for safety and will have her medications filled that were waiting for her at the pharmacy. Patient is comfortable with this. I discussed CT findings with GI on-call Dr. Carlos who recommended that we start patient on prednisone and mesalamine and he will follow her up in the office regarding this pancolitis. There is no family history of Crohn's or ulcerative colitis as per patient. Lab Data Attestation: I reviewed the patient's lab results. Labs: Laboratory Results - last 24 hr 01/10/22 01/10/22 01/10/22 09:45 09:45 10:00 WBC 8.9 RBC 4.92 Hgb 14.7 Hct 43.0 MCV 87.4 MCH 29.9 MCHC 34.2 RDW Std Deviation 40.1 RDW Coeff of Carlos 12.6 Plt Count 296 MPV 10.3 Immature Gran % (Auto) 0.300 Neut % (Auto) 67.6 Lymph % (Auto) 23.8 Callaway % (Auto) 6.3 Eos % (Auto) 1.3 Baso % (Auto) 0.7 Absolute Neuts (auto) 6.0 Absolute Lymphs (auto) 2.12 Nucleated RBC % 0 Sodium Potassium Chloride Carbon Dioxide Anion Gap BUN Creatinine Estim Creat Clear Calc Est GFR (MDRD) Af Amer Est GFR (MDRD) Non-Af BUN/Creatinine Ratio Glucose Calcium Total Bilirubin AST ALT Alkaline Phosphatase Total Protein Albumin Globulin Albumin/Globulin Ratio Serum , Qual Urine Color Yellow Urine Clarity Sl. Cloudy Urine pH 7.0 Ur Specific Charlotte 1.010 Urine Protein 15 H Urine Glucose (UA) Normal Urine Ketones Negative Urine Occult Blood 25 H Urine Nitrite Negative Urine Bilirubin Negative Urine Urobilinogen Normal Ur Leukocyte Esterase 25 H Urine RBC 5-10 SEEN Urine WBC 5-10 SEEN Ur Squamous Epith Cells 5-10 SEEN Urine Bacteria 2+ Urine Mucus 0 SEEN Urine Opiates Screen NEGATIVE Urine Methadone Screen NEGATIVE Ur Barbiturates Screen NEGATIVE Ur Phencyclidine Scrn NEGATIVE Ur Amphetamines Screen NEGATIVE MDMA (Ecstasy) Screen NEGATIVE U Benzodiazepines Scrn NEGATIVE Urine Cocaine Screen NEGATIVE U Cannabinoids Screen NEGATIVE Ur Drug Screen Comment Ethyl Alcohol 01/10/22 01/10/22 01/10/22 10:00 10:00 10:00 WBC RBC Hgb Hct MCV MCH MCHC RDW Std Deviation RDW Coeff of Carlos Plt Count MPV Immature Gran % (Auto) Neut % (Auto) Lymph % (Auto) Callaway % (Auto) Eos % (Auto) Baso % (Auto) Absolute Neuts (auto) Absolute Lymphs (auto) Nucleated RBC % Sodium 140 Potassium 3.4 L Chloride 106 Carbon Dioxide 29.0 Anion Gap 5 BUN 5 L Creatinine 0.62 Estim Creat Clear Calc 82.31 Est GFR (MDRD) Af Amer 132 Est GFR (MDRD) Non-Af 109 BUN/Creatinine Ratio 8.0 L Glucose 106 Calcium 9.1 Total Bilirubin 0.30 AST 13 L ALT 21 Alkaline Phosphatase 159 H Total Protein 7.3 Albumin 3.5 Globulin 3.8 Albumin/Globulin Ratio 0.9 Serum , Qual NEGATIVE Urine Color Urine Clarity Urine pH Ur Specific Charlotte Urine Protein Urine Glucose (UA) Urine Ketones Urine Occult Blood Urine Nitrite Urine Bilirubin Urine Urobilinogen Ur Leukocyte Esterase Urine RBC Urine WBC Ur Squamous Epith Cells Urine Bacteria Urine Mucus Urine Opiates Screen Urine Methadone Screen Ur Barbiturates Screen Ur Phencyclidine Scrn Ur Amphetamines Screen MDMA (Ecstasy) Screen U Benzodiazepines Scrn Urine Cocaine Screen U Cannabinoids Screen Ur Drug Screen Comment Ethyl Alcohol < 3.0 Radiography Diagnostic Testing: Clinical Impression(s) from Imaging Studies Abdomen/Pelvis CT 01/10/22 09:33 IMPRESSION: Findings suggestive of a pancolitis. Fatty infiltration of the liver. Electronically Signed: Nick Ruggiero MD at 11:10 EDT , Discharge Plan Triage Chief Complaint: Nausea/Vomiting/Diarrhea Other Complaint: Meds Only ED Provider: Zia Bauman Dx/Rx/DC Orders Clinical Impression: Depression, Colitis Instructions: Depression SCI, ED Understanding Colitis Prescriptions: New prednisone 20 mg tablet 40 mg PO DAILY Qty: 14 0RF mesalamine 1.2 gram tablet,delayed release (DR/EC) 2.4 g PO DAILY 56 Days Qty: 112 0RF No Action levetiracetam 500 MG tablet 500 mg PO BID Qty: 60 0RF Primary Care Provider: Care Physician,No Primary Referrals: Breanna,DO Aly [Med Staff - Active Staff] - 3-5 Days Care Physician,No Primary [Primary Care Provider] - Disposition Disposition: Home, Self Care
[2022-01-10 09:56] LABS: Mucous, Urine 0 SEEN /hpf (<or=2+)
[2022-01-10 09:58] LABS: Color, Urine Yellow (Yellow); Glucose, Dipstick Normal (Normal); Ketone-Dipstick Negative (Negative); Leukocyte Esterase-Dipstick 25 /ul (Negative); Nitrite-Dipstick Negative (Negative); Occult Blood-Urine 25 /ul (Negative); Protein-Dipstick 15 mg/dl (Negative); Urine Bilirubin Dipstick Negative (Negative); Urine Clarity Sl. Cloudy (Clear); Urine Urobilinogen Normal (Normal)
[2022-01-10 10:06] LABS: Amphetamine Urine VISTA NEGATIVE (<1000 ng/mL); Barbiturate Urine VISTA NEGATIVE (< 200 ng/mL); Benzodiazepine Urine VISTA NEGATIVE (< 200 ng/mL); Cocaine Urine VISTA NEGATIVE (< 300 ng/mL); Ecstacy Urine VISTA NEGATIVE (< 500 ng/mL); Methadone Urine VISTA NEGATIVE (< 300 ng/mL); PCP Urine VISTA NEGATIVE (< 25 ng/mL); THC Urine VISTA NEGATIVE (< 50 ng/mL); Vista UDS pH Range 7
[2022-01-10 10:08] LABS: Bacteria 2+ /hpf (None Seen); Red Blood Cells-Urine 5-10 SEEN /hpf (0-5); Squamous Epithelial Cells - UA 5-10 SEEN /hpf (5-10); White Blood Cells 5-10 SEEN /hpf (0-5)
[2022-01-10 10:10] LABS: Absolute Lymphocyte Count 2.12 X10^3/uL (0.83-4.51); Basophil# 0.06 X10^3/uL; Basophil% 0.7 % (0-1); Eosinophil# 0.12 X10^3/uL; Eosinophils% 1.3 % (0-5); Hemoglobin 14.7 g/dL (12.0-15.0); Lymphocyte # 2.12 X10^3/ul (0.83-4.51); Lymphocyte % 23.8 % (19-41); Mean Corp Hgb Conc 34.2 g/dL (32-36); Mean Corpuscular Hgb 29.9 pg (27.0-32.0); Mean Corpuscular Volume 87.4 fL (81-99); Mean Platelet Vol. 10.3 fl (6.2-12.0); Monocyte# 0.56 X10^3/uL; Monocyte% 6.3 % (0-10); NRBC Flagged by Analyzer 0 % (0-5); Neutrophil # 6.02 X10^3/uL (2.7-7.7); Neutrophil % 67.6 % (47-70); Platelet Count 296 K/mm3 (150-450); RBC Distribution Width CV 12.6 % (11.6-14.6); RBC Distribution Width SD 40.1 fl (35.1-43.9); Red Blood Count 4.92 M/mm3 (4.2-5.4); White Blood Count 8.9 K/mm3 (4.4-11.0)
[2022-01-10 10:34] LABS: ALB/GLOB Ratio 0.9 RATIO (0.9-2.4); AST(SGOT) 13 U/L (15-37); Alanine Aminotransfer ALT/SGPT 21 U/L (13-56); Albumin, Serum 3.5 g/dL (3.2-5.0); Alkaline Phosphatase 159 U/L (45-117); Anion Gap 5 (5-15); BUN 5 mg/dL (7-18); Calcium,Total 9.1 mg/dL (8.5-10.1); Chloride 106 mmol/L (98-107); Creatinine, Serum 0.62 mg/dL (0.55-1.02); EST Glomerular Filtration Rate 109 mL/min (>60); Est Glom Filt Rate - Afr Amer 132 mL/min (>60); Estimated Creatinine Clearance 82.31 ml/min; Globulin 3.8 g/dL (2.2-4.2); Glucose 106 mg/dL (74-106); Potassium 3.4 mmol/L (3.5-5.1); Protein, Total 7.3 g/dL (6.4-8.2); Sodium Level 140 mmol/L (136-145)
[2022-01-10 10:37] LABS: Internal QC Validated? YES +Cl - CLEAR BKGD; Pregnancy, Serum, hCG Quali. NEGATIVE Negative
[2022-01-10 10:42] LABS: Alcohol, Blood (Medical)-Serum < 3.0 mg/dL
[2022-01-10 12:22] VITALS: BMI 39.0
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
== END 2022-01-10 13:13 | disposition home or self-care (01) ==
PROVIDERS: Emergency Provider Emergency Medicine; Visit Provider Emergency Medicine
DX: K52.9 Noninfective gastroenteritis and colitis, unspecified (principal); G40.909 Epilepsy, unspecified, not intractable, without status epilepticus; R19.7 Diarrhea, unspecified; R44.0 Auditory hallucinations; F32.A Depression, unspecified; F17.210 Nicotine dependence, cigarettes, uncomplicated; Z20.822 Contact with and (suspected) exposure to COVID-19
CPT/HCPCS: 74176; 80053; 80307; 81001; 82077; 84703; 85025; 87493; 87506; 87811; 96365; 99283; A4216

== ENCOUNTER 2022-01-16 19:55 | Emergency (ER) | payer MEDICAID, SELFPAY ==
[2022-01-16 19:57] VITALS: BP 146/100; PULSE 100; RESP 18; TEMP 35.8; O2SAT 95; BMI 43.0
--- NOTE | 2022-01-16 19:59 | ED.RN ---
floor trader Orlando called mother Alyson [phone] to inform pt is safe in hospital per pt request.
--- NOTE | 2022-01-16 20:08 | CM.ED ---
SW Note TONY called Tina at [facility] and advised that patient is in the ED for MH assessment. Tina said to fax packet for referral to the [phone] number. Michelle OCONNOR
[2022-01-16 20:52] LABS: Amphetamine Urine VISTA NEGATIVE (<1000 ng/mL); Barbiturate Urine VISTA NEGATIVE (< 200 ng/mL); Benzodiazepine Urine VISTA NEGATIVE (< 200 ng/mL); Cocaine Urine VISTA NEGATIVE (< 300 ng/mL); Ecstacy Urine VISTA NEGATIVE (< 500 ng/mL); Methadone Urine VISTA NEGATIVE (< 300 ng/mL); PCP Urine VISTA NEGATIVE (< 25 ng/mL); THC Urine VISTA NEGATIVE (< 50 ng/mL); Vista UDS pH Range 5
--- NOTE | 2022-01-16 23:10 | EX.ED.VIS.PS ---
HPI HPI - Psych History of Present Illness Chief Complaint: ETOH Intox Detail of Chief Complaint: Depressed and suicidal Informant: patient Onset/Context/Timing Onset: Today Context: Gradual Onset Timing: Continuous Current Severity: Mild Maximum Severity: Moderate Associated Symptoms Associated Symptoms - Psych: Positive for Depressed and Suicidal Thoughts; Negative for Visual Hallucinations or Auditory Hallucinations Specific plan (suicidal thought): Asphyxiation Narrative Narrative: 46-year-old female history of seizures, high cholesterol hypothyroidism and mental illness with prior suicide attempts and 2 months ago was admitted to [facility] for psychiatric illness. States she has been sober for 3 years. Recently had her feelings hurt. States she began drinking the last 2 days. Today had suicidal thoughts and was going to jump [place] pond at the park she is unable to swim this was going to be a suicide attempt. Someone stopped her. She was at the [employer] and they called for help but never brought to the emergency department. Prior similar symptoms: Yes Recent Illness/Hospitalization: Yes PFSH PFSH Home Medications prednisone 20 mg tablet 40 mg PO DAILY #14 tabs 01/10/22 [Rx Last Taken Unknown] levothyroxine 25 mcg tablet 25 mcg PO DAILY 01/16/22 [History Last Taken Unknown] phenytoin sodium extended 100 mg capsule 200 mg PO BREAKFAST 01/16/22 [History Last Taken Unknown] phenytoin sodium extended 100 mg capsule 300 mg PO QHS 01/16/22 [History Last Taken Unknown] Allergy/AdvReac Type Severity Reaction Status Date / Time aspirin Allergy Unknown Verified 01/16/22 19:57 latex Allergy Itching Verified 01/16/22 19:57 pear [Pear] Allergy Hives Verified 01/16/22 19:57 Penicillins Allergy Hives Verified 01/16/22 19:57 shellfish derived Allergy Hives Verified 01/16/22 19:57 Social History Smoking Status: Current every day smoker tobacco type: cigarettes ROS ROS ED ROS Narrative Denies recent illness. Review of Systems ROS Unobtainable: Denies due to encephalopathy Constitutional Constitutional ED: Denies chills or fever(s) Eyes Eyes: Denies blurry vision ENT ENT ED: Denies ear pain Cardiovascular Cardiovascular: Denies chest pain Respiratory/Chest Respiratory/Chest: Denies cough or dyspnea Gastrointestinal Gastrointestinal: Denies abdominal pain Genitourinary Genitourinary ED: Denies dysuria or hematuria Musculoskeletal Musculoskeletal: Denies arthralgias Integumentary Denies abscess Neurologic Neurologic: Denies headache(s) Psychiatric Psychiatric: Denies anxiety Endocrine Endocrinology: Denies polydipsia Hematologic/Lymphatic Hematologic/Lymphatic: Denies easy bleeding Allergic/Immunologic Allergic/Immunologic ED: Denies mouth swelling or tongue swelling EXAM Physical Exam Narrative Exam Narrative: Middle-aged female no acute distress. Vital signs stable afebrile. H EENT exam unremarkable atraumatic. Neck nontender no lymphadenopathy. No signs of trauma. Lungs clear to auscultation bilaterally. Heart regular rhythm rate about 95 no murmur. Chest wall nontender. Abdomen soft nontender. Moving all 4 extremities. No track jackson. No signs of trauma. Normal range of motion. Back nontender. Neurologically she is awake and alert. Answering questions and following commands. Currently she is not violent. She is not verbally abusive. She is calm and answering questions. Const Vital Signs: 01/16/22 19:57 Temperature 96.4 F L Temperature Source Temporal Pulse Rate 100 Respiratory Rate 18 Blood Pressure 146/100 H Blood Pressure Mean 115 Pulse Ox 95 Oxygen Delivery Method Room Air Positive well nourished, well developed and obese; Negative for cachectic, contractures or unkempt General Appearance ED: well developed and NAD; Negative for unkempt, cachectic, contractures, irritable or pallor Nutritional Appearance: obese; Negative for cachectic HEENT Reports moist mucous membranes normocephalic and atraumatic; Negative for trauma or tenderness Eyes PERRL and EOMs intact bilaterally General Eye ED: Negative for pale conjunctiva or scleral icterus Neck no lymphadenopathy, supple and no JVD General: Negative for tenderness Resp normal respiratory effort and clear to auscultation bilaterally Effort and Inspection: Negative for retractions Auscultation: Negative for rales, rhonchi or wheezes Cardio S1 normal heart sound, S2 normal heart sound and no murmurs Rate: regular rate Rhythm: regular rhythm GI non-tender, non-distended and no masses Inspection: Negative for abdominal distention Auscultation: normoactive bowel sounds Palpation: soft; Negative for tender or guarding Back/Spine no CVA tenderness General Back: Negative for CVA tenderness Cervical Spine: Negative for cervical spine tenderness Thoracic Spine / Upper Back: Negative for thoracic spinal tenderness Lumbar Spine / Lower Back: Negative for lumbar spinal tenderness Coccyx: Negative for other Extremity normal to inspection General Extremety ED: Negative for edema or tenderness General Extremity: Negative for edema Neuro oriented x3, CN's II-XII intact bilaterally and no sensory deficits noted Sensorium / Orientation: alert, oriented to person, oriented to place and oriented to time; Negative for orientation impaired, confused, lethargic or stuporous Motor Exam: strength 5/5 throughout Psych mental status grossly normal, thought process normal, cooperative, affect normal, speech normal, activity/motor behavior normal, denies hallucinations and denies homicidal ideation; Negative for denies suicidal ideation Appearance: grossly normal, appropriate and well kempt; Negative for unkempt, disheveled, bizarre or intubated Attitude: calm, engaged, No paranoid, No withdrawn, No bizarre, No uncooperative, No evasive, No guarded, No belligerent, No agitated, No aggressive and No other Activity / Motor Behavior: appropriate eye contact; Negative for psychomotor agitation, psychomotor slowing, fidgetting, hyperactive, disorganized, restless, mannerisms or stereotypies Speech: normal speech, No incoherent, No excessive, No minimal, No slow, No rapid, No soft, No loud and No delayed Mood & Affect: depressed and flat affect; Negative for elevated mood, apathetic, anxious, euphoric, irritable, sad, tearful, fearful or hostile affect Thought Process: normal thought process, No incoherent, No disorganized, No confused, No confabulating, No flight of ideas, No illogical, No impoverished, No loose associations, No perseverating, No tangential, No word salad and No racing thoughts Thought Content: suicidality Attention / Concentration: attention grossly intact Memory / Cognition: memory grossly intact Insight: insight good Judgement: judgement good Skin General Skin Exam: Negative for jaundice or pallor Lesions: no lesions Rashes: no rashes Trauma: Negative for abrasion or laceration Wounds: Negative for amputation or wounds noted MDM MDM MDM Narrative Medical decision making narrative: 46-year-old female history of mental illness. Hospitalized around 2 months ago for psychiatric illness. States she had her feelings hurt last several days. Previously had been sober but now is drinking in and tonight had suicidal thoughts and was going to jump in a pond and she is unable to swim. She was stopped by a bystander. She willingly admits that she is suicidal and believes she needs help. Currently she is medically cleared. She will undergo ED mental health laboratory work-up. [facility] will evaluate her for placement. Patient has been resting comfortably in the emergency department. She does have a sitter. [facility] is in evaluating her and multiple other patients at this time. Currently is 2:45 AM. Patient doing well at 4:23 AM. [facility] had finished their evaluation and is working on placement for this patient in a psychiatric facility. Lab Data Attestation: I reviewed the patient's lab results. Lab results narrative: Tox screen negative. CBC unremarkable. White count 11.2. H&H of 13.1 and 38. Platelets 274. Lecture lites unremarkable gap is 6. Normal BUN and creatinine. Glucose 100. Alcohol negative. test negative. Tox screen negative. Labs: Laboratory Results - last 24 hr 01/16/22 01/17/22 01/17/22 20:30 00:05 00:05 WBC 11.2 H RBC 4.42 Hgb 13.1 Hct 38.3 MCV 86.7 MCH 29.6 MCHC 34.2 RDW Std Deviation 39.9 RDW Coeff of Carlos 12.6 Plt Count 274 MPV 10.3 Immature Gran % (Auto) 0.300 Neut % (Auto) 44.8 L Lymph % (Auto) 46.6 H [place] % (Auto) 5.2 Eos % (Auto) 2.6 Baso % (Auto) 0.5 Absolute Neuts (auto) 5.0 Absolute Lymphs (auto) 5.20 H Nucleated RBC % 0 Differential Comment SCANNED Sodium 139 Potassium 3.6 Chloride 108 H Carbon Dioxide 25.0 Anion Gap 6 BUN 7 Creatinine 0.45 L Estim Creat Clear Calc 113.40 Est GFR (MDRD) Af Amer 194 Est GFR (MDRD) Non-Af 160 BUN/Creatinine Ratio 15.6 Glucose 100 Calcium 8.7 Serum , Qual Urine Opiates Screen NEGATIVE Urine Methadone Screen NEGATIVE Ur Barbiturates Screen NEGATIVE Ur Phencyclidine Scrn NEGATIVE Ur Amphetamines Screen NEGATIVE MDMA (Ecstasy) Screen NEGATIVE U Benzodiazepines Scrn NEGATIVE Urine Cocaine Screen NEGATIVE U Cannabinoids Screen NEGATIVE Ur Drug Screen Comment Ethyl Alcohol 01/17/22 01/17/22 00:05 00:05 WBC RBC Hgb Hct MCV MCH MCHC RDW Std Deviation RDW Coeff of Carlos Plt Count MPV Immature Gran % (Auto) Neut % (Auto) Lymph % (Auto) [place] % (Auto) Eos % (Auto) Baso % (Auto) Absolute Neuts (auto) Absolute Lymphs (auto) Nucleated RBC % Differential Comment Sodium Potassium Chloride Carbon Dioxide Anion Gap BUN Creatinine Estim Creat Clear Calc Est GFR (MDRD) Af Amer Est GFR (MDRD) Non-Af BUN/Creatinine Ratio Glucose Calcium Serum , Qual NEGATIVE Urine Opiates Screen Urine Methadone Screen Ur Barbiturates Screen Ur Phencyclidine Scrn Ur Amphetamines Screen MDMA (Ecstasy) Screen U Benzodiazepines Scrn Urine Cocaine Screen U Cannabinoids Screen Ur Drug Screen Comment Ethyl Alcohol < 3.0 Rhythm Strip Rhythm Strip: Sinus Rhythm Rate: 84 Ectopy: None EKG Initial EKG: Attestation: I personally reviewed and interpreted this EKG as follows: Interpretation: Sinus Rhythm and No Acute Injury Pattern Comments: Normal sinus rhythm rate of 84 no acute signs of MT, ischemia or dysrhythmia. Discharge Plan Triage Chief Complaint: ETOH Intox Other Complaint: Suicidal ED Provider: Didier Joseph Dx/Rx/DC Orders Clinical Impression: Depression, Suicidal ideation Prescriptions: No Action prednisone 20 mg tablet 40 mg PO DAILY Qty: 14 0RF phenytoin sodium extended 100 mg capsule 200 mg PO BREAKFAST Label Comments: TAKE 2 TABLETS BY MOUTH EVERY DAY IN THE MORNING AND 3 TABLETS BY MOUTH EVERY EVENING phenytoin sodium extended 100 mg capsule 300 mg PO QHS Label Comments: TAKE 2 TABLETS BY MOUTH EVERY DAY IN THE MORNING AND 3 TABLETS BY MOUTH EVERY EVENING levothyroxine 25 mcg tablet 25 mcg PO DAILY Label Comments: TAKE 1 TABLET BY MOUTH DAILY Primary Care Provider: Care Physician,No Primary Referrals: Care Physician,No Primary [Primary Care Provider] - Disposition Disposition: Psychiatric Hospital or Unit
--- NOTE | 2022-01-16 23:14 | EKG12_ITS ---
Test Reason : EXAM Blood Pressure : / mmHG Vent. Rate : 084 BPM Atrial Rate : 084 BPM P-R Int : 130 ms QRS Dur : 080 ms QT Int : 372 ms P-R-T Axes : 000 048 035 degrees QTc Int : 439 ms Normal sinus rhythm Normal ECG Confirmed by BEBETO LOWE, JABIER ([id number]), features editor YANI CHAVIRA ([id number]) on 01/18/2022 11:04:44 AM Referred By: SUMI Confirmed By:JABIER TATE MD
[2022-01-17] VITALS (17 sets, daily range): BP systolic 99–127; BP diastolic 62–85; PULSE 70–87; RESP 14–18; TEMP 36.5; O2SAT 96–98
[2022-01-17 00:13] LABS: Basophil# 0.06 X10^3/uL; Basophil% 0.5 % (0-1); Eosinophil# 0.29 X10^3/uL; Eosinophils% 2.6 % (0-5); Hematocrit 38.3 % (37-47); Hemoglobin 13.1 g/dL (12.0-15.0); Lymphocyte % 46.6 % (19-41); Mean Corp Hgb Conc 34.2 g/dL (32-36); Mean Corpuscular Hgb 29.6 pg (27.0-32.0); Mean Corpuscular Volume 86.7 fL (81-99); Mean Platelet Vol. 10.3 fl (6.2-12.0); Monocyte# 0.58 X10^3/uL; Monocyte% 5.2 % (0-10); NRBC Flagged by Analyzer 0 % (0-5); Neutrophil # 5.01 X10^3/uL (2.7-7.7); Neutrophil % 44.8 % (47-70); POSITIVE DIFFERENTIAL YES; Platelet Count 274 K/mm3 (150-450); RBC Distribution Width CV 12.6 % (11.6-14.6); RBC Distribution Width SD 39.9 fl (35.1-43.9); Red Blood Count 4.42 M/mm3 (4.2-5.4); White Blood Count 11.2 K/mm3 (4.4-11.0)
[2022-01-17 00:15] LABS: Differential Indicated SCAN CRITERIA MET
[2022-01-17 00:28] LABS: Internal QC Validated? YES +Cl - CLEAR BKGD; Pregnancy, Serum, hCG Quali. NEGATIVE Negative
[2022-01-17 00:29] LABS: Alcohol, Blood (Medical)-Serum < 3.0 mg/dL
[2022-01-17 00:30] LABS: BUN 7 mg/dL (7-18); Creatinine, Serum 0.45 mg/dL (0.55-1.02); Glucose 100 mg/dL (74-106)
[2022-01-17 00:31] LABS: Anion Gap 6 (5-15); BUN/Creat Ratio 15.6 RATIO (10-20); Calcium,Total 8.7 mg/dL (8.5-10.1); Chloride 108 mmol/L (98-107); EST Glomerular Filtration Rate 160 mL/min (>60); Est Glom Filt Rate - Afr Amer 194 mL/min (>60); Potassium 3.6 mmol/L (3.5-5.1); Sodium Level 139 mmol/L (136-145)
[2022-01-17 00:52] LABS: Differential Comment SCANNED
--- NOTE | 2022-01-17 07:56 | NURSING ---
[facility] CHECKLIST FAXED BACK TO [facility] AT THIS TIME
[2022-01-17] MEDS: Levothyroxine 25 MCG TABLET PO (08:21)
[2022-01-17] MEDS: predniSONE 20 MG Tablet 40 MG PO (08:22)
[2022-01-17] MEDS: Venlafaxine XR 75 MG Capsule PO (08:22)
[2022-01-17] MEDS: Phenytoin Na 100 MG Capsule 200 MG PO (08:22)
--- NOTE | 2022-01-17 08:59 | NURSING ---
SPOKE WITH ANTHONY FROM [facility], PT WAS DECLINED AT [facility]. PT IS CURRENTLY BEING REFERRED TO [facility]
--- NOTE | 2022-01-17 09:13 | NURSING ---
SPOKE WITH ESTEPHANIE FROM [facility], PT IS CURRENTLY PENDING AT [facility] IN [place]
--- NOTE | 2022-01-17 12:39 | CM.ED ---
TONY spoke to Dianne at [facility]. Patient has been referred to [facility]. TONY spoke to Jannette at [facility]. Patient was declined at [facility] due to them having to service patients in their ED. [facility] is pending. TONY spoke to Dianne at [facility]. Dianne is going to follow up with [facility]. Dianne will also speak to Barbra at [facility] regarding patient going to [place]. Michelle OCONNOR
--- NOTE | 2022-01-17 16:25 | CM.ED ---
TONY called Jannette to inquire about patient's status. Jannette will check and call this residential mortgage underwriter back. Jannette called this residential mortgage underwriter and left voice mail. She advised that patient had gotten declined at all the facilities that they had referred patient to but patient was being referred to [facility]. Michelle OCONNOR
[2022-01-17] MEDS: Phenytoin Na 100 MG Capsule 300 MG PO (19:46)
--- NOTE | 2022-01-17 20:35 | CM.ED ---
[facility] patient is pending at [facility] Michelle OCONNOR
[2022-01-17] MEDS: Atorvastatin Calcium 20 MG Tablet PO (21:20)
[2022-01-18] VITALS (7 sets, daily range): BP systolic 117; BP diastolic 59; PULSE 79–82; RESP 15–17; TEMP 36.3–36.9; O2SAT 96–97
--- NOTE | 2022-01-18 04:49 | NURSING ---
PENDING AGAIN AT [facility]
[2022-01-18] MEDS: Levothyroxine 25 MCG TABLET PO (06:26)
--- NOTE | 2022-01-18 06:48 | NURSING ---
FAXED PINK SLIP TO [facility]
--- NOTE | 2022-01-18 07:49 | NURSING ---
REFAXED PINK SLIP WITH [facility]
[2022-01-18] MEDS: Phenytoin Na 100 MG Capsule 200 MG PO (08:04)
[2022-01-18] MEDS: predniSONE 20 MG Tablet 40 MG PO (08:04)
[2022-01-18] MEDS: Venlafaxine XR 75 MG Capsule PO (08:04)
--- NOTE | 2022-01-18 09:28 | NURSING ---
CALLED [facility]. TALKED TO CÉSAR. SHE WILL CALL [facility] AND CHECK ON STATUS
--- NOTE | 2022-01-18 09:33 | NURSING ---
[facility] [id number] NURSE TO NURSE [phone] QUIROGA
== END 2022-01-18 10:17 ==
PROVIDERS: Emergency Provider Emergency Medicine; Visit Provider Emergency Medicine
DX: F32.A Depression, unspecified (principal); R45.851 Suicidal ideations; F17.210 Nicotine dependence, cigarettes, uncomplicated; E78.00 Pure hypercholesterolemia, unspecified; E03.9 Hypothyroidism, unspecified; Z79.890 Hormone replacement therapy; Z79.899 Other long term (current) drug therapy; Z91.51 Personal history of suicidal behavior; E66.9 Obesity, unspecified
CPT/HCPCS: 36415; 80048; 80307; 82077; 84703; 85025; 87811; 93005; 99283

== ENCOUNTER 2022-08-28 12:58 | Emergency (ER) | payer MEDICAID, SELFPAY ==
[2022-08-28 12:59] VITALS: BP 133/77; PULSE 100; RESP 16; TEMP 36.4; O2SAT 92
--- NOTE | 2022-08-28 13:32 | EX.ED.DYSGE1 ---
HPI History of Present Illness Chief Complaint: Med Refill Informant: patient Onset/Context/Timing Onset: Yesterday Context: Gradual Onset Timing: Continuous Quality: Weakness Location: Generalized Worsened by: Nothing Relieved by: Nothing Narrative Narrative: Patient presents for medication refill. Patient states that she has not had her medication since yesterday. Patient states her family has her medications and would not give them to her. Patient states she feels weak all over. Patient states it is been gradually getting worse since yesterday. Patient states nothing makes it worse and nothing makes it better. Patient admits to some subjective chills. Patient also admits to some mild right upper quadrant abdominal pain. Patient states she was scheduled to have a right upper quadrant ultrasound done this afternoon. Patient does not think she will be able to have that done because she was exposed to bedbugs and currently has a rash from that. [facility] Medical History Anxiety Depression Hyperlipidemia Hypothyroidism Kidney disease Seizures Home Medications levothyroxine 25 mcg tablet 25 mcg PO DAILY 01/16/22 [History Last Taken Unknown] phenytoin sodium extended 100 mg capsule 200 mg PO BREAKFAST 01/16/22 [History Last Taken Unknown] phenytoin sodium extended 100 mg capsule 300 mg PO QHS 01/16/22 [History Last Taken Unknown] venlafaxine 75 mg capsule,extended release 24 hr 75 mg PO DAILY 01/17/22 [History Last Taken Unknown] cholecalciferol (vitamin D3) 25 mcg (1,000 unit) capsule 25 mcg PO DAILY 08/18/22 [History Last Taken Unknown] medroxyprogesterone 5 mg tablet 5 mg PO DAILY #30 tabs 08/18/22 [Rx Last Taken Unknown] Allergy/AdvReac Type Severity Reaction Status Date / Time aspirin Allergy Unknown Verified 08/18/22 11:47 latex Allergy Itching Verified 08/18/22 11:47 pear [Pear] Allergy Hives Verified 08/18/22 11:47 Penicillins Allergy Hives Verified 08/18/22 11:47 shellfish derived Allergy Hives Verified 08/18/22 11:47 Family History (Updated 08/18/22 @ 11:51 by Ani Monzon) Grandmother Lung cancer Ovarian cancer Diabetes Grandfather Lung cancer Prostate cancer Diabetes Surgical History S/P S/P tubal ligation Social History Smoking Status: Heavy Smoker (>10/day) alcohol intake: former year quit: 2021 substance use type: does not use caffeine: Yes what type of physical activity do you participate in: none seatbelt use: always do you feel safe at home: Yes additional social history: Single ROS ROS ED Constitutional Constitutional ED: Reports chills, fever(s) and subjective Eyes Eyes: Denies blurry vision or change in vision ENT ENT ED: Denies rhinorrhea or sore throat Cardiovascular Cardiovascular: Denies chest pain or palpitations Respiratory/Chest Respiratory/Chest: Denies cough or dyspnea Gastrointestinal Gastrointestinal: Reports abdominal pain; Denies nausea or vomiting Genitourinary Genitourinary ED: Denies dysuria or hematuria Musculoskeletal Musculoskeletal: Denies back pain or neck pain Integumentary Reports rash; Denies abscess Neurologic Neurologic: Denies headache(s) or weakness Allergic/Immunologic Allergic/Immunologic ED: Denies mouth swelling or urticaria EXAM Physical Exam Const Vital Signs: 08/28/22 12:59 08/28/22 13:23 Temperature 97.5 F L Temperature Source Temporal Pulse Rate 100 Respiratory Rate 16 Respiratory Effort Normal Respiratory Pattern Normal Blood Pressure 133/77 H Blood Pressure Mean 95 Pulse Ox 92 Oxygen Delivery Method Room Air Positive well nourished and well developed General Appearance ED: well developed and NAD HEENT Reports moist mucous membranes Neck supple and no JVD Resp normal respiratory effort and clear to auscultation bilaterally Cardio regular rate, regular rhythm and no murmurs GI normal to inspection, nondistended, normoactive bowel sounds Palpation: soft and tender RUQ; Negative for guarding or rebound tenderness present Extremity normal to inspection General Extremety ED: Negative for edema or tenderness General Extremity: Negative for edema Neuro oriented x3, CN's II-XII intact bilaterally and no sensory deficits noted Sensorium / Orientation: alert Motor Exam: strength 5/5 throughout Psych mental status grossly normal Skin Skin Narrative: There is a generalized patchy maculopapular rash. There are no vesicles or pustules noted. There is no petechia noted. There is no involvement of mucous membranes. MDM MDM MDM Narrative Medical decision making narrative: Patient was advised that this is most likely from not taking her medications. Patient was given a dose of her medications. Patient was given prescriptions for refill for her medications for a few days until she can get her normal prescriptions back from her family. Patient was instructed to follow-up with her primary care physician in 5 to 7 days. Patient understood and was agreeable with the plan. All questions were answered. Discharge Plan Triage Chief Complaint: Med Refill ED Provider: Mustapha Gonzalez Dx/Rx/DC Orders Clinical Impression: Hypothyroidism, Seizures Instructions: Med Refill Prescriptions: No Action cholecalciferol (vitamin D3) 25 mcg (1,000 unit) capsule 25 mcg PO DAILY medroxyprogesterone 5 mg tablet 5 mg PO DAILY Qty: 30 12RF phenytoin sodium extended 100 mg capsule 200 mg PO BREAKFAST Label Comments: TAKE 2 TABLETS BY MOUTH EVERY DAY IN THE MORNING AND 3 TABLETS BY MOUTH EVERY EVENING phenytoin sodium extended 100 mg capsule 300 mg PO QHS Label Comments: TAKE 2 TABLETS BY MOUTH EVERY DAY IN THE MORNING AND 3 TABLETS BY MOUTH EVERY EVENING levothyroxine 25 mcg tablet 25 mcg PO DAILY Label Comments: TAKE 1 TABLET BY MOUTH DAILY venlafaxine 75 mg Capsule,Extended Release 24hr 75 mg PO DAILY Primary Care Provider: Shantel Packer NP Referrals: Shantel Packer NP, TIME STUDY CLERK-C [Primary Care Provider] - 3-5 Days Disposition Disposition: Home, Self Care
[2022-08-28] MEDS: Phenytoin Na 100 MG Capsule 200 MG PO (14:15)
[2022-08-28] MEDS: Levothyroxine 25 MCG TABLET PO (14:16)
[2022-08-28] MEDS: Venlafaxine HCl 75 MG Tablet PO (14:16)
[2022-08-28 14:18] VITALS: BMI 36.6
== END 2022-08-28 14:19 | disposition home or self-care (01) ==
PROVIDERS: Emergency Provider Emergency Medicine; PCP Internal Medicine; Visit Provider Emergency Medicine
DX: E03.9 Hypothyroidism, unspecified (principal); R56.9 Unspecified convulsions; E78.5 Hyperlipidemia, unspecified; R10.11 Right upper quadrant pain; R21 Rash and other nonspecific skin eruption; Z79.890 Hormone replacement therapy; Z79.899 Other long term (current) drug therapy; F17.200 Nicotine dependence, unspecified, uncomplicated
CPT/HCPCS: 99285

== ENCOUNTER → 2022-09-18 | Outpatient (CLI) | payer MEDICAID, SELFPAY ==
--- NOTE | 2022-09-18 13:40 | US_ITS ---
STUDY: ULTRASOUND OF THE FEMALE PELVIS - COMPLETE REASON FOR EXAM: Female, 47 years old. Abnormal uterine bleeding LMP: August 28, 2022. TECHNIQUE: Transabdominal and Transvaginal TECHNICAL QUALITY: Adequate. COMPARISON: None. FINDINGS: The uterus is anteverted and is in a midline position. The uterus measures 8.8 cm x 5.9 cm x 4 cm. There is a Nabothian cyst of the cervix. The endometrium measures 6.3 mm in thickness, and is hyperechoic. There is no demonstrated endometrial mass. Heterogeneous echotexture of the myometrium. There is a 3 cm x 2.9 cm x 1.8 cm fibroid. I.U.D. - The patient does not have an I.U.D. The right ovary is visualized. The right ovary measures 3.6 cm x 2.9 cm x 2.3 cm. A dominant follicle is seen within the right ovary measuring 1.7 cm x 2 cm x 1.8 cm. There is no visualized right adnexal mass or complex lesion. There is normal arterial and normal venous vascularity. The left ovary is visualized. The left ovary measures 2.4 cm x 1.9 cm x 1.4 cm. There is no left ovarian cyst or ovarian mass. There is no visualized left adnexal mass or complex lesion. There is normal arterial and normal venous vascularity. There is no fluid in the cul-de-sac. The pre void volume of the bladder was 484 ml. US/Pelvic (Non ) IMPRESSION: Fibroid uterus. Dominant follicle is seen in the right ovary. Electronically Signed: Nick Ruggiero MD at 13:12 EDT ,
== END | disposition home or self-care (01) ==
LOC: US 13:39
PROVIDERS: PCP Internal Medicine; Referring Provider Obstetrics & Gynecology; Visit Provider Obstetrics & Gynecology
DX: N93.9 Abnormal uterine and vaginal bleeding, unspecified (principal)
CPT/HCPCS: 76830; 76856

== ENCOUNTER → 2022-09-20 | Outpatient (CLI) | payer MEDICAID, SELFPAY | END | disposition home or self-care (01) | PROVIDERS: PCP Internal Medicine; Referring Provider Internal Medicine; Visit Provider Internal Medicine | DX: G40.909 Epilepsy, unspecified, not intractable, without status epilepticus (principal) | CPT/HCPCS: 95819 ==

== ENCOUNTER 2022-09-28 10:40 | Emergency (ER) | payer MEDICAID, SELFPAY ==
[2022-09-28 10:41] VITALS: BP 125/90; PULSE 86; RESP 20; TEMP 35.9; O2SAT 97; BMI 39.9
[2022-09-28 10:46] VITALS: O2SAT 96
--- NOTE | 2022-09-28 10:58 | EDS_ITS ---
HPI HPI - URI History of Present Illness Chief Complaint: Cough Informant: patient Narrative Narrative: Patient presents saying she has had cold symptoms for the past 2 or 3 days and feels like I have bronchitis. She admits she is a heavy smoker. She has had a sick contact lately, her cousin with similar symptoms. States she is taking [id number] combination cold and flu medications and I am still coughing. She is coughing up some phlegm that she is swallowing. She has some subjective fevers earlier today, but I sweat it out. She denies any chest pain but she has had wheezing and some dyspnea with this, she has had this before no known history of asthma or COPD. No leg swelling or orthopnea. ROS ROS ED Constitutional Constitutional ED: Reports fever(s) and subjective; Denies chills Eyes Eyes: Denies change in vision or diplopia ENT ENT ED: Reports nasal congestion and rhinorrhea; Denies ear pain or sore throat Cardiovascular Cardiovascular: Denies chest pain or palpitations Respiratory/Chest Respiratory/Chest: Reports as per HPI, cough, dyspnea and wheezing Gastrointestinal Gastrointestinal: Reports diarrhea; Denies nausea or vomiting Genitourinary Genitourinary ED: Denies dysuria or hematuria Musculoskeletal Musculoskeletal: Denies myalgias or neck pain Integumentary Denies abscess or rash Neurologic Neurologic: Denies headache(s), paresthesias or weakness Psychiatric Psychiatric: Denies depression or suicidal thoughts Endocrine Endocrinology: Denies polydipsia or polyuria [facility] Medical History Anxiety Depression Hyperlipidemia Hypothyroidism Kidney disease Seizures Home Medications medroxyprogesterone 5 mg tablet 5 mg PO DAILY #30 tabs 08/18/22 [Rx Last Taken Unknown] cholecalciferol (vitamin D3) 25 mcg (1,000 unit) capsule 25 mcg PO DAILY #10 caps 08/28/22 [Rx Last Taken Unknown] levothyroxine 25 mcg tablet 25 mcg PO DAILY #10 tabs 08/28/22 [Rx Last Taken Unknown] phenytoin sodium extended 100 mg capsule 200 mg (2 x 100 mg) PO BREAKFAST #10 caps 08/28/22 [Rx Last Taken Unknown] phenytoin sodium extended 100 mg capsule 300 mg (3 x 100 mg) PO QHS #10 caps 08/28/22 [Rx Last Taken Unknown] venlafaxine 75 mg capsule,extended release 24 hr 75 mg PO DAILY #10 caps 08/28/22 [Rx Last Taken Unknown] albuterol sulfate 90 mcg/actuation aerosol inhaler (Ventolin HFA) 1 - 2 puff inhalation Q4H PRN PRN Wheezing ##1 09/28/22 [Rx Last Taken Unknown] Allergy/AdvReac Type Severity Reaction Status Date / Time aspirin Allergy Unknown Verified 09/06/22 09:17 latex Allergy Itching Verified 09/06/22 09:17 pear [Pear] Allergy Hives Verified 09/06/22 09:17 Penicillins Allergy Hives Verified 09/06/22 09:17 shellfish derived Allergy Hives Verified 09/06/22 09:17 Family History Grandmother Lung cancer Ovarian cancer Diabetes Grandfather Lung cancer Prostate cancer Diabetes Surgical History S/P S/P tubal ligation Social History Smoking Status: Heavy Smoker (>10/day) alcohol intake: former year quit: 2021 substance use type: does not use caffeine: Yes what type of physical activity do you participate in: none seatbelt use: always do you feel safe at home: Yes additional social history: Single EXAM Physical Exam Const Vital Signs: 09/28/22 10:41 09/28/22 10:46 09/28/22 11:22 Temperature 96.7 F L Temperature Source Temporal Pulse Rate 86 80 Respiratory Rate 20 H 16 Respiratory Effort Normal Respiratory Depth Normal Respiratory Pattern Normal Normal Blood Pressure 125/90 H Blood Pressure Mean 101 Pulse Ox 97 Oxygen Delivery Method Room Air Room Air Positive well nourished, well developed and obese General Appearance ED: well developed and NAD Nutritional Appearance: obese HEENT Reports moist mucous membranes normocephalic and atraumatic Face and Sinus: Negative for sinus tenderness Throat: Negative for posterior oropharynx abnormal Eyes PERRL and EOMs intact bilaterally Neck no lymphadenopathy, supple and no meningeal signs Resp normal respiratory effort Auscultation: wheezes expiratory wheezes and throughout; Negative for rales or rhonchi Cardio no murmurs Rate: regular rate; Negative for tachycardic Rhythm: regular rhythm GI non-tender and non-distended Inspection: Negative for abdominal distention Auscultation: normoactive bowel sounds Extremity normal to inspection and full ROM Neuro oriented x3, CN's II-XII intact bilaterally and no sensory deficits noted Sensorium / Orientation: alert Motor Exam: strength 5/5 throughout Psych mental status grossly normal Skin Lesions: no lesions Rashes: no rashes MDM MDM MDM Narrative Medical decision making narrative: Obtained a 2 view chest x-ray, on my interpretation shows no evidence of pneumonia. Radiology in agreement. COVID and influenza are negative, they are both very low and prevalence in the community right now, so pretest probability very low. She was given a DuoNeb nausea treatment which did help, I see no indication for antibiotics or steroids at this time, will prescribe her an albuterol inhaler and advised continuing supportive care and close outpatient follow-up with her doctor she is comfortable with that plan and understands all of this. Radiography Diagnostic Testing: Clinical Impression(s) from Imaging Studies Chest X-Ray 09/28/22 11:40 IMPRESSION: Hyperinflation. Increased bilateral perihilar markings suggestive bilateral parahilar bronchitis. Electronically Signed: Nick Ruggiero MD at 12:09 EDT , Discharge Plan Triage Chief Complaint: Cough ED Provider: Tino Brantley Dx/Rx/DC Orders Clinical Impression: Acute wheezy bronchitis Instructions: ED Bronchitis with Wheezing (Adult) Prescriptions: New albuterol sulfate [Ventolin HFA] 90 mcg/actuation HFA aerosol inhaler 1 - 2 puff inhalation Q4H PRN PRN (Reason: Wheezing) Qty: 1 0RF No Action medroxyprogesterone 5 mg tablet 5 mg PO DAILY Qty: 30 12RF venlafaxine 75 mg Capsule,Extended Release 24hr 75 mg PO DAILY Qty: 10 0RF phenytoin sodium extended 100 mg capsule 200 mg PO BREAKFAST Qty: 10 0RF phenytoin sodium extended 100 mg capsule 300 mg PO QHS Qty: 10 0RF levothyroxine 25 mcg tablet 25 mcg PO DAILY Qty: 10 0RF cholecalciferol (vitamin D3) 25 mcg (1,000 unit) capsule 25 mcg PO DAILY Qty: 10 0RF Primary Care Provider: Shantel Packer NP Referrals: Shantel Packer NP, [facility] [Primary Care Provider] - Disposition Disposition: Home, Self Care
--- NOTE | 2022-09-28 11:20 | ED.RN ---
Jc collected and sent to lab
[2022-09-28 11:22] VITALS: PULSE 80; RESP 16
[2022-09-28] MEDS: Ipratropium/Albuterol Sulfate 3 ML AMPUL.NEB INHALATION (11:22)
--- NOTE | 2022-09-28 11:40 | RAD_ITS ---
STUDY: X-RAY CHEST REASON FOR EXAM: Female, 47 years old. Cough, wheezing TECHNIQUE: PA and lateral views of the chest. COMPARISON: Comparison is made with prior study dated October 06, 2017. FINDINGS: Hyperinflation. Mild increased bilateral perihilar markings suggestive of perihilar bronchitis.. There is no demonstrated pleural abnormality. Normal size heart. Normal mediastinum and rey. Normal visualized pulmonary arteries. Normal visualized aortic arch and descending thoracic aorta. Normal visualized thoracic spine. Normal visualized ribs, clavicles, and shoulders. There is no demonstrated abnormality of the visualized soft tissue structures of the upper abdomen. RAD/Chest PA and Lateral IMPRESSION: Hyperinflation. Increased bilateral perihilar markings suggestive bilateral parahilar bronchitis. Electronically Signed: Nick Ruggiero MD at 12:09 EDT ,
== END 2022-09-28 13:20 | disposition home or self-care (01) ==
PROVIDERS: Emergency Provider Emergency Medicine; PCP Internal Medicine; Visit Provider Emergency Medicine
DX: J20.9 Acute bronchitis, unspecified (principal); E78.5 Hyperlipidemia, unspecified; R19.7 Diarrhea, unspecified; E03.9 Hypothyroidism, unspecified; E66.9 Obesity, unspecified; Z79.899 Other long term (current) drug therapy; F17.200 Nicotine dependence, unspecified, uncomplicated
CPT/HCPCS: 71046; 87428; 94640; 99282

== ENCOUNTER → 2022-10-23 | Outpatient (CLI) | payer MEDICAID, SELFPAY | END | disposition home or self-care (01) | LOC: PAVLAB 15:24 | PROVIDERS: PCP Internal Medicine; Referring Provider Obstetrics & Gynecology; Visit Provider Obstetrics & Gynecology | DX: N93.9 Abnormal uterine and vaginal bleeding, unspecified (principal); N80.03 Adenomyosis of the uterus | CPT/HCPCS: 36415; 84443 ==

== ENCOUNTER → 2022-11-01 | Outpatient (CLI) | payer MEDICAID, SELFPAY ==
--- NOTE | 2022-11-01 09:04 | US_ITS ---
STUDY: SUPERFICIAL ULTRASOUND - LEFT AXILLA. REASON FOR EXAM: Female, 47 years old. MASS OF LEFT AXILLA TECHNIQUE: A superficial ultrasound was performed with real-time and static easton-scale imaging. COMPARISON: None. FINDINGS: Imaging of the left axilla was performed. No sonographic abnormality is seen. US/Ext Non Vasc Limited/Soft Tiss IMPRESSION: No sonographic abnormality is seen. Electronically Signed: Nick Ruggiero MD at 15:42 EDT ,
== END | disposition home or self-care (01) ==
LOC: US 09:01
PROVIDERS: PCP Internal Medicine; Referring Provider Internal Medicine; Visit Provider Internal Medicine
DX: R22.32 Localized swelling, mass and lump, left upper limb (principal)
CPT/HCPCS: 76882

== ENCOUNTER → 2022-11-06 | Outpatient (CLI) | payer MEDICAID, SELFPAY ==
--- NOTE | 2022-11-06 | EMB_PTH ---
PATIENT: ERICK DOYLE LOC: [facility] U#:[id number] AGE/SX: 47/F ROOM: RE11/06/[address]: Dr. Nahomy Soriano MD : 1975 BED: DIS: 11/06/2022 SPEC #: [id number] RECD: 11/06/22 15:13 STATUS: BYRON SERGE #: [id number] IKER: 11/06/22 00:[address]: Nahomy Soriano DEPT: SURGICAL PATHOLOGY RECD BY: July Allen ENTERED: 11/07/22 07:11 SP TYPE: ENDOJennifer BX/C KENZIE DR: KISHAN Katz Tissues: Endometrium, NOS Procedures: Surgery Specimen Level IV HEADER OPERATION: Endometrial biopsy PRE-OP DIAGNOSIS: Abnormal uterine bleeding TISSUE SUBMITTED: Endometrial lining MICROSCOPIC DIAGNOSIS Endometrium, biopsy: Secretory endometrium. AM:ned 11/08/2022 MICROSCOPIC DESCRIPTION Slides are reviewed. GROSS DESCRIPTION Received is one container labeled with the patient's name and not further designated. The specimen consists of multiple irregular fragments of light dan soft tissue that in aggregate measure 2.0 x 0.6 x 0.1 cm. The specimen is totally submitted in one cassette. / AM:ned 11/07/2022 TC:5 CPT: 68957
== END | disposition home or self-care (01) ==
LOC: LABSPEC 15:03
PROVIDERS: PCP Internal Medicine; Referring Provider Obstetrics & Gynecology; Visit Provider Obstetrics & Gynecology
DX: N93.9 Abnormal uterine and vaginal bleeding, unspecified (principal)
CPT/HCPCS: 88305

== ENCOUNTER → 2022-11-24 | Outpatient (CLI) | payer MEDICAID, SELFPAY ==
--- NOTE | 2022-11-24 12:37 | US_ITS ---
STUDY: ULTRASOUND OF THE FEMALE PELVIS - COMPLETE REASON FOR EXAM: Female, 47 years old. Abnormal uterine pain. IUD Placement LMP: November 07, 2022. TECHNIQUE: Transabdominal and Transvaginal TECHNICAL QUALITY: Adequate. COMPARISON: Comparison is made with prior study September 18, 2022. FINDINGS: The uterus is anteverted and is in a midline position. The uterus measures 11.2 cm x 5.3 cm x 5.2 cm. There is a Nabothian cyst of the cervix. The endometrium measures 4.2 mm in thickness, and is hyperechoic. There is no demonstrated endometrial mass. There is a 3.4 cm x 3.2 cm x 2.2 cm fibroid. I.U.D. - The patient does have an I.U.D. The right ovary is visualized. The right ovary measures 2.4 cm x 2.4 cm x 2 cm. There is a dominant follicle measuring 1.9 cm x 1.6 x 1.4 centimeters There is no visualized right adnexal mass or complex lesion. There is normal arterial and normal venous vascularity. The left ovary is visualized. The left ovary measures 3.5 cm x 3.1 cm x 1.9 cm cm. There is a dominant follicle measuring 1.5 cm x 1.3 sorry by 1.2 centimeters. There is no visualized left adnexal mass or complex lesion. There is normal arterial and normal venous vascularity. There is minimal fluid in the cul-de-sac. The pre void volume of the bladder was 91 ml. US/Pelvic w/ Transvaginal IMPRESSION: PID is seen within the endometrium. Small bilateral ovarian follicles. Electronically Signed: Nick Ruggiero MD at 14:24 EDT ,
== END | disposition home or self-care (01) ==
LOC: US 12:35
PROVIDERS: PCP Internal Medicine; Referring Provider Obstetrics & Gynecology; Visit Provider Obstetrics & Gynecology
DX: R10.2 Pelvic and perineal pain (principal)
CPT/HCPCS: 76830; 76856

== ENCOUNTER → 2023-11-05 | Outpatient (CLI) | payer MEDICAID, SELFPAY ==
--- NOTE | 2023-11-05 08:17 | BI_ITS ---
MAMMOGRAPHY - BILATERAL SCREENING REASON FOR EXAM: Female, 48 years old. Routine annual screening examination. PERTINENT HISTORY: Non-contributory. TECHNIQUE: Digital bilateral breast jose (3D mammographic acquisition) in the CC and MLO projections. 2-D mediolateral oblique (MLO) and craniocaudad (CC) views of both breasts were obtained. CAD: Full Field Digital Mammography with Computer Added Detection was performed. COMPARISON: None. Baseline examination. FINDINGS: Breast Composition: The breasts are almost entirely fatty. There are no dominant masses or suspicious calcifications. No other significant abnormalities are identified. BI/SCRN MAMM (CAD)W/JOSE BILAT IMPRESSION: Negative screening mammogram. Yearly followup mammogram recommended. (A) ASSESSMENT CATEGORY: BIRADS Category 1: Negative. A letter regarding these results will be sent to the patient by the facility within 30 days. Approximately 10% of breast cancers are not detected by mammography. A normal mammogram should not delay biopsy of a clinically suspicious abnormality. [id number] Electronically Signed: Nick Ruggiero MD at 9:02 EDT ,
== END | disposition home or self-care (01) ==
LOC: CT 08:16
PROVIDERS: PCP Internal Medicine; Referring Provider Internal Medicine; Visit Provider Internal Medicine
DX: Z12.31 Encounter for screening mammogram for malignant neoplasm of breast (principal)
CPT/HCPCS: 77063; 77067

== ENCOUNTER → 2023-12-10 | Outpatient (CLI) | payer MEDICAID, SELFPAY | END | disposition home or self-care (01) | PROVIDERS: PCP Internal Medicine; Referring Provider Internal Medicine; Visit Provider Internal Medicine | DX: G40.909 Epilepsy, unspecified, not intractable, without status epilepticus (principal) | CPT/HCPCS: 95819 ==

== ENCOUNTER → 2024-07-28 | Outpatient (CLI) | payer MEDICAID, SELFPAY ==
[2024-07-31 21:07] LABS: HPV APTIMA, High Risk Positive (Negative); HPV Genotype 16, Aptima Negative (Negative); HPV Genotype 18,45 Aptima Negative (Negative)
== END | disposition home or self-care (01) ==
LOC: LABSPEC 12:09
PROVIDERS: PCP Internal Medicine; Referring Provider Nurse Practitioner Women's Health; Visit Provider Nurse Practitioner Women's Health
DX: Z12.4 Encounter for screening for malignant neoplasm of cervix (principal); R10.2 Pelvic and perineal pain
CPT/HCPCS: 87070; 87205; 87624; 88175; G0145

== ENCOUNTER → 2024-07-29 | Outpatient (CLI) | payer MEDICAID, SELFPAY ==
--- NOTE | 2024-07-29 07:46 | US_ITS ---
PROCEDURE: PELVIC W/ TRANSVAGINAL, 07/29/2024 REASON FOR EXAM: ABD PAIN, BLEEDING WITH IUD TECHNIQUE: Grayscale and color doppler transabdominal and transvaginal pelvic ultrasound was performed. COMPARISON: 11/24/2022 FINDINGS: Exam is slightly limited by shadowing bowel gas and probably by uterine positioning. Uterus: 11.1 x 5.0 x 5.0 cm, Anteverted. Unremarkable echotexture. Endometrium: Poorly visualized, measured at 3 mm on limited transabdominal imaging. IUD is poorly visualized but appears within the endometrial cavity. Slightly low positioning questioned by clinical services manager on real-time scanning, difficult to confirm on still images obtained. Cervix: Nabothian cysts, some of which demonstrate low-level internal echoes suggesting internal hemorrhagic/proteinaceous components. Right ovary: 3.4 x 2.52.4 cm. Visualized only by limited transabdominal approach. Grossly unremarkable limited transabdominal appearance. Left ovary: 2.3 x 1.9 x 1.6 cm. Visualized only by limited transabdominal approach. Grossly unremarkable limited transabdominal appearance. Free fluid: None visualized. Other: Estimated bladder volume 340 mL. US/Pelvic w/ Transvaginal IMPRESSION: 1. Limited exam. IUD is poorly visualized but appears within the endometrial ca vity. Slightly low positioning questioned by clinical services manager on real-time scanning, difficult to confirm on still images obtaine d. Correlate with exam and consider a repeat exam with transabdominal and transvaginal cine clips as indicated. 2. Additional description as above. Reading Location: [id number]
== END | disposition home or self-care (01) ==
PROVIDERS: PCP Internal Medicine; Referring Provider Nurse Practitioner Women's Health; Visit Provider Nurse Practitioner Women's Health
DX: R10.9 Unspecified abdominal pain (principal); N92.1 Excessive and frequent menstruation with irregular cycle; Z97.5 Presence of (intrauterine) contraceptive device
CPT/HCPCS: 76830; 76856

== ENCOUNTER → 2024-09-23 | Outpatient (CLI) | payer MEDICAID, SELFPAY ==
[2024-09-23 13:22] LABS: Prothrombin Time (Protime)PT. 13.1 SECONDS (11.7-14.9)
[2024-09-23 13:46] LABS: Hematocrit 41.0 % (37-47); Hemoglobin 14.2 g/dL (12.0-15.0); Immature Granulocytes Count 0.010 X10^3/uL (0.0-0.0); Mean Corp Hgb Conc 34.6 g/dL (32-36); Mean Corpuscular Volume 88.6 fL (81-99); Mean Platelet Vol. 10.0 fl (6.2-12.0); NRBC Flagged by Analyzer 0 % (0-5); Platelet Count 302 K/mm3 (150-450); RBC Distribution Width CV 12.8 % (11.6-14.6); RBC Distribution Width SD 41.1 fl (35.1-43.9); Red Blood Count 4.63 M/mm3 (4.2-5.4); White Blood Count 6.9 K/mm3 (4.4-11.0)
[2024-09-23 13:55] LABS: AST(SGOT) 14 U/L (<=31); Alanine Aminotransfer ALT/SGPT 16 U/L (<=34); Albumin, Serum 4.1 g/dL (3.5-5.0); Alkaline Phosphatase 159 U/L (35-104); Anion Gap 13 (5-15); BUN 6 mg/dL (4-19); BUN/Creat Ratio 10.5 RATIO (10-20); Calcium,Total 9.2 mg/dL (7.6-11.0); Carbon Dioxide 22.7 mmol/L (21.0-32.0); Chloride 102 mmol/L (98-108); Globulin 2.8 g/dL (2.2-4.2); Glucose 92 mg/dL (70-99); Potassium 3.8 mmol/L (3.3-5.1)
[2024-09-23 14:33] LABS: CRP 26.10 mg/L (0.0-3.0); Iron 90 ug/dL (50-170); LDH 180 U/L (84-246)
[2024-09-28 03:07] LABS: Albumin 3.2 g/dL (2.9-4.4); Cytoplasmic Ab (C-ANCA) <1:20 titer (Neg:<1:20); Gamma Globulin 0.8 g/dL (0.4-1.8); HEPATITIS B SURFACE AG Negative (Negative); Hep C Antibodies Non Reactive (Non Reactive); Immunoglobulin A 175 mg/dL (87-352); Immunoglobulin G 724 mg/dL (586-1602); Immunoglobulin M 211 mg/dL (26-217); PROEL- TOTAL PROTEIN 6.3 g/dL (6.0-8.5); Perinuclear Ab (P-ANCA) 1:80 titer (Neg:<1:20); QNTFERON TB Mitogen Value > 10.00 IU/mL (.); QNTFERON TB Nil Value 0.03 IU/mL (.); QNTFERON TB1+ Ag Value 0.40 IU/mL (.); QNTFERON TB2+ Ag Value 0.42 IU/mL (.); QNTIFERON TB Positive Criteria Positive (Negative)
[2024-09-28 04:07] LABS: Anti-Chromatin <0.2 AI (0.0-0.9); Anti-Jo <0.2 AI (0.0-0.9); Anti-dsDNA Ab 1 IU/mL (0-9); Egg, White <0.10 kU/L (Class 0); SCALLOP <0.10 kU/L (Class 0); SESAME SEED <0.10 kU/L (Class 0); SJOGREN'S Anti-SS-A test < 0.2 AI (0.0-0.9); SJOGREN'S Anti-SS-B test < 0.2 AI (0.0-0.9); Walnut, (Food) <0.10 kU/L (Class 0)
== END | disposition home or self-care (01) ==
LOC: LAB 11:38
PROVIDERS: PCP Internal Medicine; Referring Provider Internal Medicine Gastroenterology; Visit Provider Internal Medicine Gastroenterology
DX: R10.9 Unspecified abdominal pain (principal); F10.10 Alcohol abuse, uncomplicated
CPT/HCPCS: 36415; 80053; 80074; 82784; 82785; 83036; 83516; 83540; 83615; 84165; 84443; 85025; 85610; 85652; 86003; 86037; 86140; 86225; 86235; 86255; 86334; 86480

== ENCOUNTER → 2024-10-07 | Outpatient (CLI) | payer MEDICAID, SELFPAY ==
--- NOTE | 2024-10-07 07:04 | US_ITS ---
PROCEDURE: ABD LIMITED W/ ELASTOGRAPHY REASON FOR EXAM: FATTY LIVER DISEASE COMPARISON: None TECHNIQUE: Right upper quadrant abdominal ultrasound. Pinky ElastQ Imaging shear wave elastography for non-invasive assessment of liver tissue stiffness. Pinky EPIQ Elite. FINDINGS: LIVER: Size: Unremarkable Length: 15.5 cm Echotexture: Diffusely echogenic suggesting fatty infiltration Contour: Normal Lesions: None identified Elastography: EQI Med: 7.9 kPa EQI Med Omari: 1.61 m/s IQR/Med: 22 %* GALLBLADDER: Normal COMMON BILE DUCT: 4 mm. . PANCREAS: Normal Visualized portions of the right kidney are unremarkable. Right pelvic kidney. No right upper quadrant ascites. US/ABD Limited w/ Elastography IMPRESSION: Moderate hepatic fibrosis. Fatty infiltration of the liver. Reference Values: SRU <1.37 m/s (5.7kPa): No to mild fibrosis 1.37 m/s - 2.2 m/s: Moderate to severe fibrosis >2.2 m/s (15kPa): Significant fibrosis / cirrhosis METAVIR Score F2 or higher: 1.34 m/s (5.7kPa) F3 or higher: 1.55 m/s (7.3kPa) F4: 1.80 m/s (10kPa) * If the IQR/Med is >30%, the variance in the measurements is a large and the a ccuracy of the measurement may be in question. Reading Location: [id number]
--- OUTSIDE RECORDS SUMMARY | 2024-10-07 07:09 | XMS RPT_ITS | CCD ---
Author Organization [facility] Care Team Providers Care Graphic Art Sales Representative Name Role Phone NO, PHYSICIAN Primary Care Unavailable NO, PHYSICIAN Primary Care Unavailable Unavailable Primary Care Provider Unavailabl e PHYSICIAN, NONE Primary Care Physician Unavailab le QUIROGA, BRITTANY K. Admitting Unavailable QUIROGA, BRITTANY K. Attending Unavailable MARQUES VIGIL Consulting Unavailable NO, PHYSICIAN Primary Care Unavailable PAULINE CHING Consulting Unavailabl e NO, PHYSICIAN Primary Care Unavailable QUIROGA, BRITTANY K. Admitting Unavailable QUIROGA, BRITTANY K. Consulting Unavailable QUIROGA, BRITTANY K. Attending Unavailable MARQUES VIGIL Consulting Unavailable Unavailable Primary Care Provider Unavailabl e Maryanne ARCH CUSHION PRESS OPERATOR.PLANT OPERATIONS MANAGER, Jorge Primary Care Provider Maryanne TURNER OFF, TURNER OFF-C Jorge Primary Care Provider Maryanne TURNER OFF, TURNER OFF-C Jorge Referring Provider Dr. Poonam Brown Attending Provider Maryanne TURNER OFF, TURNER OFF-C Jorge Primary Care Provider Unav ailable Maryanne TURNER OFF, TURNER OFF-C Ojrge Referring Provider Unavail able Dr. Nahomy Soriano Attending Provider Maryanne ARCH CUSHION PRESS OPERATOR.PLANT OPERATIONS MANAGER, Jorge Primary Care Provider Maryanne ARCH CUSHION PRESS OPERATOR.PLANT OPERATIONS MANAGER, Jorge Primary Care Provider Maryanne TURNER OFF-C, Jorge Primary Care Provider Maryanne TURNER OFF-C, Jorge Referring Provider Lou TURNER OFF-C, Princess Attending Provider Lou TURNER OFF-C, Princess Referring Provider Dr. Aly Carlos DO Attending Provider Dr. Aly Carlos DO Referring Provider MARYANNE, JORGE Primary Care Unavailable MARYANNE, JORGE Attending Unavailable MARYANNE, JORGE Referring Unavailable MARYANNE, JORGE Primary Care Unavailable MARYANNE, JORGE Referring Unavailable MARYANNE, JORGE Primary Care Unavailable MARYANNE, JORGE Attending Unavailable MARYANNE, JORGE Primary Care Unavailable TINO NICHOLSON Attending Unavailable TINO NICHOLSON Admitting Unavailable MARYANNE, JORGE Primary Care Unavailable CLAU ABEBE Attending Unavailable MARYANNE, JORGE Primary Care Unavailable MARYANNE, JORGE Attending Unavailable MARYANNE, JORGE Primary Care Unavailable MARYANNE, JORGE Primary Care Unavailable MARYANNE, JORGE Referring Unavailable MARYANNE, JORGE Attending Unavailable AGARWAL, JENNIFER Referring Unavailable MARYANNE, JORGE Primary Care Unavailable AGARWAL, JENNIFER Referring Unavailable MARYANNE, JORGE Primary Care Unavailable AGARWAL, JENNIFER Referring Unavailable MARYANNE, JORGE Primary Care Unavailable AGARWAL, JENNIFER Attending Unavailable MARYANNE, JORGE Primary Care Unavailable MARYANNE, JORGE Referring Unavailable TINO NICHOLSON Attending Unavailable MARYANNE, JORGE Primary Care Unavailable MARYANNE, JORGE Referring Unavailable MARYANNE, JORGE Primary Care Unavailable Maryanne TURNER OFF, Jorge Primary Care Unavailable Friend, Aly Attending Unavailable Friend, Aly Referring Unavailable Maryanne TURNER OFF, Jorge Referring Unavailable Maryanne TURNER OFF, Jorge Primary Care Unavailable Maryanne TURNER OFF, Jorge Attending Unavailable Maryanne TURNER OFF, Jorge Referring Unavailable Lou TURNER OFF, Princess Attending Unavailable Maryanne TURNER OFF, Jorge Primary Care Unavailable Maryanne TURNER OFF, Jorge Referring Unavailable Maryanne TURNER OFF, Jorge Primary Care Unavailable Friend, Aly Attending Unavailable Maryanne TURNER OFF, Jorge Referring Unavailable Maryanne TURNER OFF, Jorge Primary Care Unavailable Maryanne TURNER OFF, Jorge Attending Unavailable Lou TURNER OFF, Princess Attending Unavailable Andrews TURNER OFF, Princess Referring Unavailable Maryanne TURNER OFF, Jorge Primary Care Unavailable Lou TURNER OFF, Princess Attending Unavailable Andrews TURNER OFF, Princess Referring Unavailable Maryanne TURNER OFF, Jorge Primary Care Unavailable Maryanne TURNER OFF, Jorge Primary Care Unavailable Friend, Aly Attending Unavailable Friend, Aly Referring Unavailable Allergies Allergy Classification Reported Allergen(s) Allergy Type Date of Onset Reaction(s) Facility Aspirin (1 source) Aspirin Drug Allergy 2 Other: See Comments, Unknown [facility] Latex (1 source) Latex Substance Allergy 7 Rash, Itching [facility] Macrolides (antibiotic) (1 source) Erythromycin Drug Allergy 7 Vomiting [facility] Pear Preparation (1 source) Pear Preparation Drug Allergy 7 [facility] QUEtiapine (1 source) QUEtiapine Drug Allergy 2 Other: See Comments [facility] Serotonin Reuptake Inhibitors (SSRIs) (1 source) traZODone Drug Allergy 2 Contraindicatio n-Medical Surgical, Other: See Comments [facility] Shellfish (1 source) Shellfish Food Allergy 2 [facility] (20 sources) Aspirin; Translations: [ASPIRIN] Drug Allergy 2 Other (See Comments), Other: See Comments, Unknown [facility] Repository (20 sources) traZODone; Translations: [TRAZODONE] Drug Allergy 2 Other (See Comments), Contraindicatio n-Medical Surgical, Other: See Comments [facility] Repository Comment on above: triggers my seizure s (20 sources) FISH CONTAINING PRODUCTS; Translations: [FISH CONTAINING PRODUCTS] Propensity to adverse reactions to drug (disorder) 2 Unknown, Other: See Comments [facility] Repository (20 sources) Erythromycin; Translations: [ERYTHROMYCIN] Drug Allergy 7 Nausea And Vomiting, Vomiting [facility] Work Phone: Comment on above: Nausea/vomiting (1 source) Fish - dietary Propensity to adverse reactions to drug 2 Other (See Comments) [facility] Work Phone: (20 sources) Latex; Translations: [LATEX] Propensity to adverse reactions to drug 7 Rash, Itching [facility] Work Phone: (20 sources) Pear Preparation; Translations: [PEAR] Drug Allergy 7 [facility] Work Phone: (10 sources) Penicillins Allergy to substance 2 [facility] (20 sources) Shellfish; Translations: [SHELLFISH DERIVED] Allergy to substance 2 [facility] Work Phone: (20 sources) QUEtiapine; Translations: [QUETIAPINE] Drug Allergy 2 Other: See Comments [facility] Repository (1 source) Erythromycin Drug Allergy 5 [facility] Repository (1 source) Latex Drug allergy (disorder) 5 [facility] Repository (1 source) Pear Preparation Drug Allergy 5 [facility] Repository (1 source) Penicillins Drug allergy (disorder) 5 [facility] Repository Medications Current Medications Medication Drug Class(es) Dates Sig (Normalized) Sig (Original) [id number] 200 actuat albuterol 0.09 mg/actuat metered dose inhaler (20 sources) beta2-Adrenergic Agonist Start: 04-20-2023 End: 07-28-2024 take 2 puff(s) by inhalation every four hours as needed albuterol HFA (PROAIR HFA) 90 mcg/actuation inhaler Indications: Chronic obstructive pulmonary disease with acute exacerbation (HCC) Inhale 2 puffs as instructed every 4 hours as needed. 1 each 07/28/2024 Active Start: 09-28-2022 End: 12-25-2022 take 2 puff(s) by inhalation every four hours as needed albuterol HFA (PROAIR HFA) 90 mcg/actuation inhaler Indications: Subacute cough , Chronic obstructive pulmonary disease with acute exacerbation (HCC) Inhale 2 Puffs as instructed every 4 hours as needed. 1 Each 0 12/25/2022 Active Start: 09-28-2022 Albuterol Sulf ate (Ventolin Hfa) 90 mcg/actuation HFA aerosol inhaler Active 1 - 2 NMA INHALATION EVERY 4 HOURS NEEDED as needed for Wheezing 1 0 September 28, 2022 12:00am Start: 09-28-2022 take 1 puff(s) by in halation every four hours as needed Albuterol Sulfate (Ventolin Hfa) 90 mcg/actuation HFA aerosol inhaler Active 1 - 2 PUFF INHALATION EVERY 4 HOURS NEEDED September 28, 2022 12:00am Start: 02-07-2017 End: 05-24-2022 albuterol HFA (PROVENTIL HFA , VENTOLIN HFA) 90 mcg/actuation inhaler EVERY 4 HOURS NEEDED 0 02/07/2017 05/24/2022 Discontinued Comment on above: EVERY 4 HOURS NEE DED Inhale 2 Puffs as in structed every 4 hours as needed. amitriptyline hydrochloride 25 mg oral tablet (2 sources) Tricyclic Antidepressant Start: 10-16-2021 amitriptyline 25 mg oral tablet Dose : 25 mg = 1 tab(s), Oral, qHS Start Date: 10/16/21 Status: Ordered Start: 08-12-2021 take 1 tablet by alessandro th in the evening amitriptyline (ELAVIL) 25 MG tablet TAKE 1 TABLET BY MOUTH IN THE EVENING 0 08/12/2021 Active amoxicillin 875 mg / clavulanate 125 mg oral tablet (4 sources) Penicillin-class Antibacterial Start: 02-28-2024 End: 03-06-2024 take 1 tablet by mouth twice daily at mealtime amoxicillin-clavulanate potassium (AUGMENTIN) 875-125 mg per tablet Indications: Acute cough , Sinobronchitis Take 1 tablet by mouth two times a day for 7 days. Take with food 14 tablet 02/28/2024 03/06/2024 Active Start: 05-09-2022 End: 05-16-2022 take 1 tablet by mouth twice daily amoxicillin-clavulanic acid (AUGMENTIN) 875-125 mg per tablet Indications: Sinobronchitis Take 1 tablet by mouth twice daily for 7 days. 14 tablet 0 05/09/2022 05/16/2022 Active Comment on above: Take 1 tablet by alessandro th twice daily for 7 days. benzonatate 100 mg oral capsule (12 sources) Non-narcotic Antitussive Start: 024 take 1 capsule by mouth three times daily as needed benzonatate (TESSALON PERLE) 100 mg capsule Indications: Acute cough Take 1-2 capsules by mouth three times a day as needed for cough. 60 capsule 1 02/28/2024 Active bethanechol chloride 10 mg oral tablet (1 source) Cholinergic Muscarinic Agonist Start: 022 take 1 tablet by mouth three times daily bethanechol (URECHOLINE) 10 MG tablet Take 10 mg by mouth 3 times daily 0 09/02/2021 Active cholecalciferol 0.025 mg oral capsule (20 sources) Vitamin D Start: 023 End: 023 take 1 capsule by mouth once daily Cholecalciferol (Vitamin D3) 25 mcg (1,000 unit) capsule Active 25 ug PO DAILY 10 August 28, 2022 2:13pm Start: 08-14-2022 End: 05-05-2025 take 1 capsule by mouth once daily Cholecalciferol, Vitamin D3, 25 mcg (1,000 unit) cap Take 1 capsule by mouth once daily. 30 capsule 11 05/05/2024 05/05/2025 Active Start: 03-01-2022 End: 08-14-2022 Cholecalciferol, Vitamin D3, 25 mcg (1,000 unit) cap Comment on above: Take 1 capsule by mo [facility] once daily. diazePAM 10 mg oral tablet (6 sources) Benzodiazepine Start: 10-19-2023 End: 10-20-2023 diazePAM (VALIUM) 10 mg tablet Indications: Seizure disorder (HCC) Take 1 tablet by mouth as directed for 1 day. Take first pill 30 minutes to 1 hour before procedure and then second pill as need leading up to procedure for anxiety. 4 tablet 0 10/19/2023 10/20/2023 Active Start: 08-06-2023 End: 08-08-2023 diazePAM (VALIUM) 2 mg table t Indications: Situational anxiety Take first pill 30 minutes to 1 hour before procedure and then second pill as need leading up to procedure for anxiety. Will write to dispense for 4 pills total due to the strong possibility of needing follow up imaging/further work up following CT scan with MRI. 4 tablet 0 08/06/2023 08/08/2023 Active doxycycline monohydrate 100 mg oral capsule (1 source) Tetracycline-class Drug Start: 06-02-2024 End: 06-16-2024 take 1 capsule by mouth twice daily doxycycline monohydrate (MONODOX) 100 mg capsule Indications: Chronic obstructive pulmonary disease with acute exacerbation (HCC) Take 1 capsule by mouth two times a day for 14 days. 28 capsule 06/02/2024 06/16/2024 Active escitalopram 10 mg oral tablet (2 sources) Serotonin Reuptake Inhibitor Start: 10-16-2021 Lexapro 10 mg oral tablet Dose : 10 mg = 1 tab(s), Oral, qHS Start Date: 10/16/21 Status: Ordered Start: 09-02-2021 take 1 tablet by [facility] once daily escitalopram (LEXAPRO) 10 MG tablet Take 10 mg by mouth nightly 0 09/02/2021 Active etodolac 400 mg oral tablet (18 sources) Nonsteroidal Anti-inflammatory Drug Start: 01-28-2024 take 1 tablet by mouth twice daily etodolac (LODINE) 400 mg tablet Indications: Left arm pain , Shoulder impingement Take 1 tablet by mouth two times a day. 60 tablet 1 01/28/2024 Active fexofenadine hydrochloride 180 mg oral tablet (5 sources) Histamine-1 Receptor Antagonist Start: 07-28-2024 take 1 tablet by mouth once daily fexofenadine (ALINE) 180 mg tablet Indications: Seasonal allergies Take 1 tablet by mouth once daily. 90 tablet 1 07/28/2024 Active fluticasone / salmeterol (20 sources) Corticosteroid, beta2-Adrenergic Agonist Start: 02-28-2024 End: 06-02-2024 take 1 puff(s) by mouth twice daily fluticasone-salme terol (ADVAIR DISKUS) 250-50 mcg/dose inhaler Indications: Acute cough , Chronic obstructive pulmonary disease with acute exacerbation (HCC) Inhale 1 Puff as instructed two times a day. Rinse mouth after use. 60 Each 5 02/28/2024 06/02/2024 Discontinued Start: 02-28-2024 End: 08-26-2024 take 1 puff(s) by mouth twice daily fluticasone-salmeterol (ADVAIR DISKUS) 250-50 mcg/dose inhaler Indications: Acute cough , Chronic obstructive pulmonary disease with acute exacerbation (HCC) Inhale 1 Puff as instructed two times a day. Rinse mouth after use. 60 Each 5 02/28/2024 08/26/2024 Active Start: 08-07-2023 End: 02-28-2024 take 1 puff(s) by mouth twice daily fluticasone-salmeterol (ADVAIR DISKUS) 500-50 mcg/dose dsdv Indications: Subacute cough , Chronic obstructive pulmonary disease with acute exacerbation (HCC) Inhale 1 Puff as instructed two times a day. Rinse mouth after use. 60 Each 3 08/07/2023 02/28/2024 Discontinued Start: 08-07-2023 take 1 puff(s) by mo ut twice daily fluticasone-salmeterol (ADVAIR DISKUS) 500-50 mcg/dose dsdv Indications: Subacute cough , Chronic obstructive pulmonary disease with acute exacerbation (HCC) Inhale 1 Puff as instructed two times a day. Rinse mouth after use. 60 Each 3 08/07/2023 Active Start: 12-25-2022 End: 08-07-2023 take 1 puff(s) by mouth twice daily fluticasone-salmeterol (ADVAIR DISKUS) 500-50 mcg/dose dsdv Indications: Subacute cough , Chronic obstructive pulmonary disease with acute exacerbation (HCC) Inhale 1 Puff as instructed two times a day. Rinse mouth after use. 60 Each 3 12/25/2022 08/07/2023 Discontinued Start: 12-25-2022 take 1 puff(s) by mo uth twice daily fluticasone-salmeterol (ADVAIR DISKUS) 500-50 mcg/dose dsdv Indications: Subacute cough , Chronic obstructive pulmonary disease with acute exacerbation (HCC) Inhale 1 Puff as instructed two times a day. Rinse mouth after use. 60 Each 3 12/25/2022 Active take 1 puff(s) by in halation twice daily fluticasone-salmeterol (ADVAIR) 500-50 mcg/dose dsdv Inhale 1 Puff as instructed two times a day. Active Comment on above: Inhale 1 Puff as ins tructed two times a day. Rinse mouth after use. 12 hr guaiFENesin 600 mg extended release oral tablet (2 sources) Start: End: take 2 tablets by mouth twice daily guaiFENesin (MUCINEX) 600 mg 12 hr tablet Indications: Chronic obstructive pulmonary disease with acute exacerbation (HCC) Take 2 tablets by mouth two times a day for 14 days. 56 tablet 0 01/03/2023 01/17/2023 Active Comment on above: Take 2 tablets by mo [facility] two times a day for 14 days. iv contrast (will be provided with radiology test) (7 sources) Start: End: inject 1 dose intravenously once iv contrast (will be provided with radiology test) Indications: Seizure disorder (HCC) CT Brain WO/W - No IV access, insert saline lock prior to the sedation, infusion, injection for imaging exam. Discontinue saline lock post exam. If Pt. has a central line or IVAD, may access for administration according to line specific nursing protocol. Once exam is complete flush line and de-access according to line specific nursing protocol in the CT contrast administration guidelines link. 1 Each 0 10/19/2023 10/20/2023 Active Start: 08-30-2023 End: 08-31-2023 inject 1 dose intravenously once iv contrast (will be provided with radiology test) Indications: Seizure disorder (HCC) CT Brain WO/W - No IV access, insert saline lock prior to the sedation, infusion, injection for imaging exam. Discontinue saline lock post exam. If Pt. has a central line or IVAD, may access for administration according to line specific nursing protocol. Once exam is complete flush line and de-access according to line specific nursing protocol in the CT contrast administration guidelines link. 1 Each 0 08/30/2023 08/31/2023 Active Start: 08-06-2023 End: 08-07-2023 inject 1 dose intravenously once iv contrast (will be provided with radiology test) Indications: Seizure disorder (HCC) CT Brain WO/W - No IV access, insert saline lock prior to the sedation, infusion, injection for imaging exam. Discontinue saline lock post exam. If Pt. has a central line or IVAD, may access for administration according to line specific nursing protocol. Once exam is complete flush line and de-access according to line specific nursing protocol in the CT contrast administration guidelines link. 1 Each 0 08/06/2023 08/07/2023 Active Start: 06-21-2022 End: 06-22-2022 iv contrast (will be provide d with radiology test) Indications: Colitis , Abdominal pain, suprapubic CT ABD/PEL -Inject, intravenously, once for 1 dose.No IV access, insert saline lock prior to the beginning of sedation, infusion, injection of imaging exam. Discontinue saline lock post exam. If Pt. has a central line or IVAD, may access for administration according to line specific nursing protocol. Once exam is complete flush line and de-access according to line specific nursing protocol in the CT contrast administration guidelines link. 1 Each 0 06/21/2022 06/22/2022 Active Comment on above: CT ABD/PEL -Inject, intravenously, once for 1 dose.No IV access, insert saline lock prior to the beginning of sedation, infusion, injection of imaging exam. Discontinue saline lock post exam. If Pt. has a central line or IVAD, may access for administration according to line specific nursing protocol. Once exam is complete flush line and de-access according to line specific nursing protocol in the CT contrast administration guidelines link. lactobacillus acidophilus [id number] unt / pectin 100 mg oral capsule (20 sources) Start: 07-20-19 End: 06-03-19 take 1 capsule by mouth once daily Lactobacillus acidoph-pectin (ACIDOPHILUS-PECTIN) 75 million cell -100 mg cap Take 1 capsule by mouth once daily. 90 capsule 2 07/20/2023 06/02/2024 Discontinued levETIRAcetam 750 mg oral tablet (2 sources) Start: 10-04-19 End: 04-01-19 take 1 tablet by mouth twice daily levETIRAcetam (KEPPRA) 750 mg tablet Take 1 tablet by mouth two times a day. 60 tablet 5 10/03/2024 04/01/2025 Active Start: 10-25-2017 take 500 mg by mouth twice daily Levetiracetam Active 500 MG PO TWICE A DAY 60 October 25, 2017 12:00am levothyroxine sodium 0.025 m g oral tablet (20 sources) l-Thyroxine Start: 10-16-2021 Synthroid 25 m cg (0.025 mg) oral tablet Dose : 25 mcg = 1 tab(s), Oral, qAM Start Date: 10/16/21 Status: Ordered Start: 05-02-2021 End: 06-02-2025 take 1 tablet by mouth once daily levothyroxine (SYNTHROID) 25 mcg tablet Indications: Hypothyroidism, unspecified type Take 1 tablet by mouth once daily. 90 tablet 3 06/02/2024 06/02/2025 Active Comment on above: Take 25 mcg by mouth . Take 1 tablet by alessandro th once daily. LORazepam 0.5 mg oral tablet (1 source) Benzodiazepine Start: 10-04-19 End: 11-04-19 LORazepam (ATIVAN) 0.5 mg Indications: Claustrophobia Take 1 tablet [address] scan of brain. 1 tablet 10/03/2024 11/03/2024 Active mesalamine 1200 mg delayed release oral tablet (1 source) Aminosalicylate Start: 01-11-20 take 2.4 g by mouth once daily Mesalamine Active 2.4 GM PO DAILY 112 56 January 10, 2022 12:00am phenytoin sodium 300 mg extended release oral capsule (20 sources) Anti-epileptic Agent Start: 07-29-19 take 1 capsule by mouth twice daily in the morning phenytoin ER 300 mg ER capsule Indications: Seizure disorder (HCC) Take 1 capsule by mouth two times a day. take in the morning 60 capsule 5 07/28/2024 Active Start: 09-07-2023 End: 07-28-2024 take 1 capsule by mouth once daily at bedtime Phenytoin Sodium Extended 200 mg ER capsule Take 1 capsule by mouth daily at bedtime. 30 capsule 3 05/05/2024 07/28/2024 Discontinued Start: 09-07-2023 End: 07-28-2024 take 1 capsule by mouth once daily in the morning phenytoin ER 300 mg ER capsule Indications: Seizure disorder (HCC) Take 1 capsule by mouth once daily. take in the morning 30 capsule 3 05/05/2024 07/28/2024 Discontinued Start: 08-06-2023 End: 08-24-2023 take 1 capsule by mouth once daily at bedtime phenytoin ER (DILANTIN) 100 mg ER capsule Indications: Seizure disorder (HCC) Take 1 capsule by mouth once daily. Take at bed time with the 300 mg dose to equal 400 mg at bedtime. 30 capsule 1 08/06/2023 08/24/2023 Discontinued Start: 01-22-2023 End: 09-07-2023 take 1 capsule by mouth twice daily phenytoin ER 300 mg ER capsule Indications: Seizure disorder (HCC) Take 1 capsule by mouth two times a day. 60 capsule 5 05/29/2023 09/07/2023 Discontinued (Adjust Sig - Block E-Cancel) Start: 07-21-2022 End: 12-15-2022 take 1 capsule by mouth once daily Phenytoin Sodium Extended 200 mg ER capsule Indications: Seizure disorder (HCC) Take 1 capsule by mouth once daily. Take 1 capsules in morning and then take the 300 mg capsules at night 30 capsule 0 12/12/2022 12/15/2022 Discontinued Start: 07-21-2022 End: 01-17-2023 take 1 capsule by mouth once daily at bedtime phenytoin ER 300 mg ER capsule Indications: Seizure disorder (HCC) Take 1 capsule by mouth daily at bedtime. Take 200 mg capsule in morning 30 capsule 2 01/17/2023 Active Start: 05-29-2022 End: 07-21-2022 take 1 capsule by mouth twice daily phenytoin ER 300 mg ER capsule Indications: Seizure disorder (HCC) Take 1 capsule by mouth twice daily. 60 capsule 2 06/21/2022 07/21/2022 Discontinued Start: 01-16-2022 End: 09-23-2024 take 2 capsules by mouth at breakfast Phenytoin Sodium Extended 100 mg capsule Discontinued 200 mg PO WITH BREAKFAST 10 August 28, 2022 2:13pm September 23, 2024 11:06am Start: 01-16-2022 End: 08-28-2022 take 200 mg by mouth at breakfast Phenytoin Sodium Extended Active 200 MG PO WITH BREAKFAST August 28, 2022 2:13pm Start: 01-16-2022 End: 08-28-2022 take 300 mg by mouth at bedtime Phenytoin Sodium Exten ded Active 300 MG PO AT BEDTIME August 28, 2022 2:13pm Start: 10-16-2021 phenytoin 100 mg oral capsule, extended release Dose : 300 mg = 3 cap(s), Oral, qPM Start Date: 10/16/21 Status: Ordered Start: 10-03-2021 phenytoin (DIL ANTIN) 100 MG ER capsule Take 2 tablets every morning and 3 tablets every evening 150 capsule 1 10/03/2021 Active Start: 04-08-2017 End: 08-28-2022 take 3 capsules by mouth at bedtime Phenytoin Sodium Extended 100 mg capsule Discontinued 300 mg PO AT BEDTIME January 16, 2022 12:00am August 28, 2022 2:13pm Comment on above: Take 200 mg by mouth . 2 capsules in morning and 3 capsules at night Take 1 capsule by mo ut twice daily. Take 1 capsule by mo uth once daily. Take 1 capsules in morning and then take the 300 mg capsules at night Take 1 capsule by mo uth daily at bedtime. Take 200 mg capsule in morning Take 2 capsules by m outh once daily. Take in the am, take 300 mg dose in the pm Take 1 capsule by mo ut two times a day. Take 200 mg capsule in morning Take 1 capsule by mo uth two times a day. predniSONE 10 mg oral tablet (20 sources) Start: 02-28-2024 End: 06-02-2024 predniSONE (DELTASONE) 10 mg tablet Indications: Acute cough , Chronic obstructive pulmonary disease with acute exacerbation (HCC) Take 2 tabs po BID for 2 days then 1 tab po BID for 2 days then 1/2 tab po BID for 2 days then 1/2 tab daily for 2 days then stop 15 tablet 02/28/2024 06/02/2024 Discontinued Start: 01-02-2023 End: 07-28-2024 Prednisone 10 mg tablet Disc ontinued 10 mg PO As Directed January 02, 2023 12:00am July 28, 2024 11:24am see taper instructions Start: 12-25-2022 End: 01-19-2023 predniSONE (DELTASONE) 10 mg tablet Indications: Subacute cough , Chronic obstructive pulmonary disease with acute exacerbation (HCC) Take 2 tabs po BID for 2 days then 1 tab po BID for 2 days then 1/2 tab po BID for 2 days then 1/2 tab daily for 2 days then stop 15 tablet 0 12/25/2022 01/19/2023 Discontinued Start: 12-04-2022 End: 12-09-2022 take 2 tablets by mouth once daily predniSONE (DELTASONE) 20 mg tablet Indications: Subacute cough Take 2 tablets by mouth once daily for 5 days. 10 tablet 0 12/04/2022 12/09/2022 Active Start: 01-10-2022 End: 08-18-2022 take 2 tablets by mouth once daily Prednisone 20 mg tablet Discontinued 40 mg PO DAILY 14 January 10, 2022 12:00am August 18, 2022 11:47am Start: 01-10-2022 End: 08-18-2022 take 40 mg by mouth once daily Prednisone Discontinued 40 MG PO DAILY January 10, 2022 12:00am August 18, 2022 11:47am Comment on above: Take 2 tablets by mo uth once daily for 5 days. Take 2 tabs po BID f or 2 days then 1 tab po BID for 2 days then 1/2 tab po BID for 2 days then 1/2 tab daily for 2 days then stop sulfamethoxazole 800 mg / trimethoprim 160 mg oral tablet (2 sources) Dihydrofolate Reductase Inhibitor Antibacterial, Sulfonamide Antimicrobial Start: 2023 End: 2023 take 1 tablet by mouth twice daily sulfamethoxazole-t rimethoprim (BACTRIM DS) 800-160 mg per tablet Indications: Boil of groin Take 1 tablet by mouth two times a day for 7 days. 14 tablet 11/27/2023 12/04/2023 Active 10 actuat tiotropium 0.0025 mg/actuat inhalation spray (8 sources) Anticholinergic Start: 2024 take 2 puff(s) by inhalation once daily tiotropium bromide (SPIRIVA RESPIMAT) 2.5 mcg/actuation inhaler Indications: Chronic obstructive pulmonary disease with acute exacerbation (HCC) Inhale 2 Puffs as instructed once daily. 1 Each 3 06/02/2024 Active varenicline 1 mg oral tablet (8 sources) Partial Cholinergic Nicotinic Agonist Start: 2022 End: 2023 take 1 tablet by mouth twice daily varenicline (CHANTIX CONTINUING MONTH BOX) 1 mg tablet Indications: Tobacco use disorder Take 1 tablet by mouth two times a day. 60 tablet 3 01/22/2023 05/22/2023 Active Start: 12-25-2022 take 1 tablet by alessandro th once daily varenicline (CHANTIX STARTING MONTH BOX) 0.5 mg (11)- 1 mg (42) tablet Indications: Tobacco use disorder Take 0.5 mg by mouth once daily on Days 1 through 3, THEN 0.5 mg twice daily on Days 4 through 7, THEN 1 mg twice daily on Day 8 and thereafter 53 tablet 0 12/25/2022 Active Comment on above: Take 1 tablet by alessandro th two times a day. Take 0.5 mg by mouth once daily on Days 1 through 3, THEN 0.5 mg twice daily on Days 4 through 7, THEN 1 mg twice daily on Day 8 and thereafter 24 hr venlafaxine 150 mg extended release oral capsule (20 sources) Serotonin and Norepinephrine Reuptake Inhibitor Start: 07-20-19 take 1 capsule by mouth once daily venlafaxine ER (EFFEXOR XR) 150 mg 24 hr capsule Take 1 capsule by mouth once daily. 07/20/2023 Active Start: 11-06-2022 End: 07-20-2023 take 150 mg by mouth once daily Venlafaxine Active 150 MG PO DAILY November 06, 2022 1:09pm Start: 01-17-2022 End: 11-06-2022 take 1 capsule by mouth once daily Venlafaxine 75 mg Capsule,Extended Release 24hr Discontinued 75 mg PO DAILY 10 August 28, 2022 2:13pm November 06, 2022 1:09pm End: 05-24-2022 venlafaxine HCl (EFFEXOR ORA L) Take by mouth. 0 05/24/2022 Discontinued venlafaxine HCl (EFFEXOR ORAL) Take by mouth. 0 Active Comment on above: Take by mouth. Take 75 mg by mouth once daily. Take 150 mg by mouth once daily. Completed/Discontinued Medications Medication Drug Class(es) Dates Sig (Normalized) Sig (Original) acetaminophen 325 mg / oxyCODONE hydrochloride 5 mg oral tablet (10 sources) Opioid Agonist Start: 12-28-2012 End: 01-28-2013 Oxycodone-Acetamino phen 1 TABLET tablet Discontinued 1 - 2 {tbl} PO EVERY 4 HOURS NEEDED as needed for Abdominal Pain 30 December 28, 2012 12:00am January 28, 2013 8:36pm Start: 12-28-2012 End: 01-28-2013 take 1 tablet by mouth every four hours as needed Oxycodone-Acetaminophen Discontinued 1 - 2 TABLET PO EVERY 4 HOURS NEEDED December 28, 2012 12:00am January 28, 2013 8:36pm atorvastatin 20 mg oral tablet (20 sources) HMG-CoA Reductase Inhibitor Start: 01-17-2022 End: 01-19-2023 take 1 tablet by mouth once daily Atorvastatin 20 mg Tablet Discontinued 20 mg PO DAILY January 17, 2022 12:00am August 18, 2022 11:47am Comment on above: Take by mouth. azithromycin 250 mg oral tablet (7 sources) Macrolide Antimicrobial Start: 01-02-2023 End: 07-23-2024 Azithromycin 250 mg tablet Discontinued 0 PO .COMPLEX January 02, 2023 12:00am July 23, 2024 4:09pm For 250 mg dose pack: take 500 mg today (day 1), then 250 mg for 4 days (days 2-5) PO Start: 12-25-2022 End: 12-30-2022 take 2 tablets by mouth once daily, then take 1 tablet by mouth once daily azithromycin (ZITHROMAX) 250 mg tablet Indications: Subacute cough , Chronic obstructive pulmonary disease with acute exacerbation (HCC) Take 2 tablets by mouth once daily for 1 day, THEN 1 tablet once daily for 4 days. 6 tablet 0 12/25/2022 12/30/2022 Active Start: 07-19-2022 End: 07-24-2022 take 2 tablets by mouth once daily, then take 1 tablet by mouth once daily azithromycin (ZITHROMAX) 250 mg tablet Indications: Bronchitis Take 2 tablets by mouth once daily for 1 day, THEN 1 tablet once daily for 4 days. 6 tablet 0 07/19/2022 07/24/2022 Active Comment on above: Take 2 tablets by [facility] once daily for 1 day, THEN 1 tablet once daily for 4 days. betamethasone 3 mg/ml / betamethasone acetate 3 mg/ml injectable suspension (2 sources) Corticosteroid Start: 01-28-2024 End: 01-28-2024 betamethasone acetate-betamethasone sodium phosphate 6 mg injection (CELESTONE) Start: 01-28-2024 End: 01-28-2024 6 mg, Injection - FOR ORTHO USE ONLY, ONCE, 1 dose, Starting on Sun01/28/24 at 1110, Until Sun01/28/24 at 1110 busPIRone hydrochloride 5 mg oral tablet (20 sources) Start: 03-01-2022 End: 01-19-2023 take 1 tablet by mouth every eight hours as needed busPIRone (BUSPAR) 5 mg tablet Take 1 tablet by mouth three times daily as needed. 0 05/24/2022 01/19/2023 Discontinued Comment on above: Take 1 tablet by [facility] three times daily as needed. cetirizine hydrochloride 10 mg oral tablet (17 sources) Histamine-1 Receptor Antagonist Start: 11-27-2023 End: 07-28-2024 take 1 tablet by mouth once daily cetirizine (ZYRTEC) 10 mg tablet Indications: Seasonal allergies Take 1 tablet by mouth once daily. 30 tablet 3 11/27/2023 07/28/2024 Discontinued citalopram 20 mg oral tablet (10 sources) Serotonin Reuptake Inhibitor Start: 01-28-2013 End: 03-23-2013 take 1 tablet by mouth once daily Citalopram 20 MG tablet Discontinued 20 mg PO DAILY January 28, 2013 1:00am March 23, 2013 5:11pm docusate sodium 100 mg oral capsule (10 sources) Start: 01-28-2013 End: 03-23-2013 take 1 capsule by mouth once daily Docusate Sodium (Colace) 100 MG capsule Discontinued 100 mg PO DAILY January 28, 2013 1:00am March 23, 2013 5:11pm 30 actuat fluticasone furoate 0.05 mg/actuat dry powder inhaler (4 sources) Corticosteroid Start: 01-02-2023 End: 07-28-2024 Fluticasone Furoate 50 mcg/actuation blister with device Discontinued INHALATION January 02, 2023 12:00am July 28, 2024 11:24am lamoTRIgine 25 mg oral tablet (7 sources) Mood Stabilizer, Anti-epileptic Agent Start: 10-19-2023 End: 11-27-2023 take 1 tablet by mouth twice daily lamoTRIgine (LAMICTAL) 25 mg tablet Indications: Seizure disorder (HCC) Take 1 tablet by mouth two times a day. 60 tablet 3 10/19/2023 11/27/2023 Discontinued 10 ml lidocaine hydrochloride 10 mg/ml injection (2 sources) Antiarrhythmic, Amide Local Anesthetic Start: 01-28-2024 End: 01-28-2024 lidocaine (PF) 10 mg/mL (1 %) 5 mL injection (XYLOCAINE) Start: 01-28-2024 End: 01-28-2024 5 mL, Injection - FOR ORTHO USE ONLY, ONCE, 1 dose, Starting on Sun01/28/24 at 1110, Until Sun01/28/24 at 1110 medroxyPROGESTERone acetate 5 mg oral tablet (8 sources) Progestin Start: 08-18-2022 End: 01-02-2023 take 1 tablet by mouth once daily Medroxyprogesterone 5 mg tablet Discontinued 5 mg PO DAILY 30 August 18, 2022 12:00am January 02, 2023 1:08pm meloxicam 15 mg oral tablet (20 sources) Nonsteroidal Anti-inflammator y Drug Start: 05-03-2023 End: 01-28-2024 take 1 tablet by mouth once daily as needed for pain meloxicam (MOBIC) 15 mg tablet Take 1 tablet by mouth once daily as needed for pain. for pain. Take with food. 15 tablet 05/03/2023 11/27/2023 Discontinued Comment on above: Take 1 tablet by alessandro th once daily as needed for pain. for pain. Take with food. nicotine 4 mg chewing gum (6 sources) Cholinergic Nicotinic Agonist Start: 07-19-2022 End: 10-20-2022 take 1 dose by mouth every two hours as needed nicotine polacrilex (NICORETTE) 4 mg gum Indications: Tobacco use disorder Take 1 Each by mouth every 2 hours as needed. Max of 12 pieces per day 190 Each 2 07/19/2022 10/20/2022 Discontinued Comment on above: Take 1 Each by mouth every 2 hours as needed. Max of 12 pieces per day Take 1 Each by mouth as needed. nystatin [id number] unt/ml oral suspension (17 sources) Polyene Antifungal Start: 07-20-2023 End: 10-19-2023 nystatin (MYCOSTATIN) 100,000 unit/mL suspension Indications: Oral thrush Take 5 mL by mouth four times daily. 1tsp swish in mouth for several minutes, then swallow (or expectorate) 4 times daily until gone. 200 mL 0 07/20/2023 10/19/2023 Discontinued Start: 09-02-2021 End: 09-02-2022 nystatin (MYCOSTATIN) [id number] UNIT/GM powder Apply topically 2 times daily 0 09/02/2021 09/02/2022 Active [id number] Ac id ( 19 Chewable Tablet) 1 EACH Tab.Chew (10 sources) Start: 12-25-2012 End: 01-28-2013 [id number] Ac id ( 19 Chewable Tablet) 1 EACH Tab.Chew Discontinued 1 NMA PO DAILY December 25, 2012 12:00am January 28, 2013 8:36pm Start: 12-25-2012 End: 01-28-2013 take 1 capsule by mouth once daily [id number] Acid ( 19 Chewable Tablet) 1 EACH Tab.Chew Discontinued 1 CAP PO DAILY December 25, 2012 12:00am January 28, 2013 8:36pm promethazine hydrochloride 25 mg oral tablet (10 sources) Phenothiazine Start: 01-28-2013 End: 03-23-2013 take 1 tablet by mouth every six hours as needed for nausea Promethazine 25 MG tablet Discontinued 25 mg PO EVERY 6 HOURS NEEDED as needed for Nausea 10 0 January 28, 2013 1:00am March 23, 2013 5:11pm sertraline 50 mg oral tablet (13 sources) Serotonin Reuptake Inhibitor Start: 04-18-2007 End: 05-24-2022 take 1 tablet by mouth once daily Sertraline 50 MG tablet Discontinued 50 mg PO DAILY 30 December 28, 2012 12:00am January 28, 2013 8:36pm Comment on above: Take onehalf tab donaldo ly for 8 days and then one(1) tablet daily. Varenicline Tartrate (Chantix Starting Month Box) 0.5 mg (11)- 1 mg (42) tablets,dose pack (4 sources) Start: 01-02-2023 End: 07-28-2024 take 1 tablet by mouth once Varenicline Tartrate (Chantix Starting Month Box) 0.5 mg (11)- 1 mg (42) tablets,dose pack Discontinued 0 PO per package directions January 02, 2023 12:00am July 28, 2024 11:24am PO PER PKG DIR Problems Active Problems Problem Classification Problem Date Documented Date Episodic/Chronic Abdominal pain (20 sources) Suprapubic pain; Translations: [Pelvic and perineal pain] Onset: 09-29-2024 Episodic Acute bronchitis (7 sources) Acute bronchitis co-occurrent with wheeze; Translations: [Acute bronchitis, unspecified] 10-06-2022 Episodic Administrative/socia l admission (3 sources) Personal environment finding; Translations: [Problem related to housing and economic circumstances, unspecified] 10-20-2022 Episodic Alcohol-related disorders (20 sources) Alcohol dependence; Translations: [Alcohol dependence with intoxication, unspecified] Onset: 02-25-2007 10-04-2021 Chronic Comment on above: currently sober, see counseling center Anxiety disorders (20 sources) Anxiety state; Translations: [Generalized anxiety disorder] Onset: 02-25-2007 10-04-2021 Chronic Benign neoplasm of uterus (2 sources) Uterine leiomyoma; Translations: [Leiomyoma of uterus, unspecified] Episodic Chronic obstructive pulmonary disease and bronchiectasis (13 sources) Acute exacerbation of chronic obstructive airways disease; Translations: [Chronic obstructive pulmonary disease with (acute) exacerbation] Onset: 07-28-2024 12-25-2022 Chronic Comment on above: Heavy smoker Contraceptive and procreative management (6 sources) Encounter for insertion of intrauterine contraceptive device; Translations: [Encounter for insertion of intrauterine contraceptive device] 11-06-2022 Episodic Disorders of lipid metabolism (12 sources) Hyperlipidemia; Translations: [Hyperlipidemia, unspecified] 08-18-2022 Chronic Epilepsy; convulsions (20 sources) Seizure disorder; Translations: [Epilepsy, unspecified, not intractable, without status epilepticus] Onset: 05-24-2022 Chronic Epilepsy; convulsions (14 sources) Seizure; Translations: [Unspecified convulsions] 08-28-2022 Episodic Genitourinary congenital anomalies (17 sources) Pelvic kidney; 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] Chronic Genitourinary symptoms and ill-defined conditions (1 source) Dysuria; Translations: [Dysuria] Episodic Headache; including migraine (2 sources) Headache; Translations: [Chronic intractable headache, unspecified headache type] 10-03-2024 Episodic Immunizations and screening for infectious disease (20 sources) Patient encounter status; Translations: [Encounter for screening for human immunodeficiency virus [HIV]] Episodic Menstrual disorders (5 sources) Dysmenorrhea; Translations: [Dysmenorrhea, unspecified] 10-20-2022 Chronic Mood disorders (20 sources) Depressive disorder; Translations: [Depression] Onset: 02-25-2007 Resolved: 05-24-2022 10-04-2021 Chronic Mycoses (1 source) Candidiasis of mouth; Translations: [Candidal stomatitis] 07-20-2023 Episodic Nutritional deficiencies (5 sources) Vitamin D deficiency; Translations: [Vitamin D deficiency, unspecified] Onset: 10-19-2023 Chronic Other connective tissue disease (5 sources) Pain in left arm; Translations: [Pain in left arm] 07-20-2023 Episodic Other diseases of kidney and ureters (8 sources) Kidney disease; Translations: [Disorder of kidney and ureter, unspecified] 08-18-2022 Episodic Other diseases of kidney and ureters (4 sources) Disorder of kidney and ureter, unspecified; Translations: [Unspecified disorder of kidney and ureter] 08-18-2022 Episodic Other female genital disorders (9 sources) Abnormal uterine bleeding; Translations: [Abnormal uterine and vaginal bleeding, unspecified] 08-18-2022 Chronic Other female genital disorders (9 sources) Abnormal uterine and vaginal bleeding, unspecified; Translations: [Unspecified disorders of menstruation and other abnormal bleeding from female genital tract] 08-18-2022 Chronic Other female genital disorders (7 sources) Abnormal uterine bleeding due to adenomyosis; Translations: [Abnormal uterine and vaginal bleeding, unspecified] 10-23-2022 Chronic Comment on above: 3 cm intramural fibr oid not impinging cavity and adenomyosis seen, discussed options (smoker and on antiseizure meds) recommend IUD, if fails consider myfembree or hysterectomy. iud in place and controlling well Other injuries and conditions due to external causes (2 sources) H/O: head injury; Translations: [Personal history of other (healed) physical injury and trauma] 10-03-2024 Episodic Other liver diseases (2 sources) Steatosis of liver; Translations: [Fatty (change of) liver, not elsewhere classified] 07-20-2023 Chronic Other liver diseases (3 sources) Alkaline phosphatase raised; Translations: [Abnormal levels of other serum enzymes] 05-07-2023 Episodic Other lower respiratory disease (3 sources) Cough; Translations: [Subacute cough] 12-04-2022 Episodic Other lower respiratory disease (1 source) Cough; Translations: [Acute cough] 02-28-2024 Episodic Other nervous system disorders (4 sources) Carpal tunnel syndrome of left wrist; Translations: [Carpal tunnel syndrome, left upper limb] 11-23-2023 Chronic Other nervous system disorders (3 sources) Bilateral carpal tunnel syndrome; Translations: [Carpal tunnel syndrome, bilateral upper limbs] 11-27-2023 Chronic Other nervous system disorders (1 source) Carpal tunnel syndrome, left upper limb; Translations: [Left carpal tunnel syndrome] Onset: 09-11-2024 Chronic Other nervous system disorders (1 source) Carpal tunnel syndrome, bilateral upper limbs; Translations: [Bilateral carpal tunnel syndrome] Onset: 01-28-2024 Chronic Other nervous system disorders (1 source) Paresthesia; Translations: [Paresthesia of skin] 11-23-2023 Episodic Other non-traumatic joint disorders (2 sources) Chronic pain of left upper limb; Translations: [Pain in left shoulder] 04-20-2023 Episodic Other non-traumatic joint disorders (1 source) Disorder of shoulder; Translations: [Other specified joint disorders, unspecified shoulder] 01-28-2024 Episodic Other nutritional; endocrine; and metabolic disorders (20 sources) Body mass index 40+ - severely obese; Translations: [Morbid (severe) obesity due to excess calories] Onset: 05-24-2022 Chronic Other nutritional; endocrine; and metabolic disorders (20 sources) Obese class II; Translations: [Obesity, unspecified] Onset: 10-19-2023 10-19-2023 Chronic Other nutritional; endocrine; and metabolic disorders (4 sources) Obesity; Translations: [Obesity, unspecified] 07-23-2024 Chronic Other screening for suspected conditions (not mental disorders or infectious disease) (5 sources) Abnormal cervical Papanicolaou smear; Translations: [Unspecified abnormal cytological findings in specimens from cervix uteri] Onset: 11-30-2023 08-04-2024 Episodic Comment on above: - PAP, +HPV, rpt 1 y ear per [facility] Other skin disorders (10 sources) Folliculitis; Translations: [Follicular disorder, unspecified] 10-01-2013 Episodic Other skin disorders (1 source) Localized swelling, mass and lump, left upper limb; Translations: [Localized superficial swelling, mass, or lump] 10-20-2022 Episodic Other upper respiratory disease (2 sources) Seasonal allergy; Translations: [Other seasonal allergic rhinitis] 11-27-2023 Chronic Other upper respiratory disease (1 source) Other seasonal allergic rhinitis; Translations: [Seasonal allergies] Onset: 07-28-2024 Chronic Other upper respiratory infections (2 sources) Chronic sinusitis; Translations: [Chronic sinusitis, unspecified] Chronic Residual codes; unclassified (2 sources) Obstructive sleep apnea syndrome; Translations: [Obstructive sleep apnea (adult) (pediatric)] 07-20-2023 Chronic Residual codes; unclassified (1 source) Obstructive sleep apnea (adult) (pediatric); Translations: [MAI (obstructive sleep apnea)] Onset: 07-28-2024 Chronic Residual codes; unclassified (1 source) Lack of access to transportation; Translations: [Lack of access to transportation] 10-20-2022 Episodic Residual codes; unclassified (1 source) Memory impairment; Translations: [Other amnesia] 11-27-2023 Episodic Residual codes; unclassified (2 sources) Family history of seizure disorder; Translations: [Family history of other specified conditions] 10-03-2024 Episodic Skin and subcutaneous tissue infections (4 sources) Furuncle of groin; Translations: [Furuncle of groin] Onset: 07-28-2024 11-27-2023 Episodic Substance-related disorders (6 sources) Tobacco user; Translations: [Nicotine dependence, unspecified, uncomplicated] Onset: 07-28-2024 Chronic Suicide and intentional self-inflicted injury (9 sources) Suicidal thoughts; Translations: [Suicidal ideations] 01-26-2022 Episodic Thyroid disorders (20 sources) Hypothyroidism; Translations: [Hypothyroidism, unspecified] Onset: 05-24-2022 Chronic Unclassified (2 sources) Patient encounter status 06-02-2024 Past or Other Problems Problem Classification Problem Date Documented Date Episodic/Chronic Diabetes mellitus without complication (4 sources) Impaired fasting glycemia; Translations: [Impaired fasting glucose] Onset: 10-19-2023 01-19-2023 Episodic Noninfectious gastroenteritis (20 sources) Colitis; Translations: [Noninfective gastroenteritis and colitis, unspecified] Onset: 06-21-2022 Episodic Other aftercare (1 source) Encounter for therapeutic drug level monitoring; Translations: [Encounter for therapeutic drug monitoring] Onset: 10-19-2023 Episodic Other complications of (20 sources) Supervision of other high risk pregnancies, unspecified trimester; Translations: [Supervision of other high-risk ] Onset: 07-25-2006 Resolved: 05-24-2022 07-25-2006 Episodic Other complications of (20 sources) High risk ; Translations: [Supervision of high risk , unspecified, unspecified trimester] Onset: 07-19-2006 Resolved: 07-25-2006 07-25-2006 Episodic Other connective tissue disease (1 source) Pain in left arm; Translations: [Left arm pain] Onset: 11-23-2023 Episodic Other female genital disorders (20 sources) History of premature labor; Translations: [Personal history of pre-term labor] Onset: 07-25-2006 Resolved: 05-24-2022 07-25-2006 Episodic Results Test Name Value Interpretation Reference Range Facility [facility] ANTI-DNA (DS)AB 1 IU/mL Normal 0-9 [facility] Comment on above: Result Comment: Nega tive <5 Equivocal 5 - 9 Positive >9 Performed By: #### L 500.4050, L3100.5440, L300.3900, L503.6150, L501.6710, L3300.1200, L3100.3425, L3200.1100, L501.9520, L5500.0410, L3000.0375, L3410.2400, L3400.8000, L504.2610, L100.0100, L501.9985, L101.9900 #### [facility] [address] [place], [address] ANTI-SS-A < 0.2 Normal 0.0-0.9 [facility] Comment on above: Performed By: #### L 500.4050, L3100.5440, L300.3900, L503.6150, L501.6710, L3300.1200, L3100.3425, L3200.1100, L501.9520, L5500.0410, L3000.0375, L3410.2400, L3400.8000, L504.2610, L100.0100, L501.9985, L101.9900 #### [facility] [address] [place], [address] ANTI-SS-B < 0.2 Normal 0.0-0.9 [facility] Comment on above: Performed By: #### L 500.4050, L3100.5440, L300.3900, L503.6150, L501.6710, L3300.1200, L3100.3425, L3200.1100, L501.9520, L5500.0410, L3000.0375, L3410.2400, L3400.8000, L504.2610, L100.0100, L501.9985, L101.9900 #### [facility] [address] [place], [address] ANCAon 09-28-2024 Atypical pANCA <1:20 Normal Neg:<1:20 [facility] Comment on above: Result Comment: The atypical pANCA pattern has been observed in a significant percentage of patients with ulcerative colitis, primary sclerosing cholangitis and autoimmune hepatitis. [facility]formed at: - [facility] [address] [place] [id number] Cooling Tower Technician: Wilfrid Mancia PhD, Phone: [phone] Performed at: - [facility] [id number] Cooling Tower Technician: Blaise Mcgraw MD, Phone: [phone] Performed By: #### L 500.4050, L3100.5440, L300.3900, L503.6150, L501.6710, L3300.1200, L3100.3425, L3200.1100, L501.9520, L5500.0410, L3000.0375, L3410.2400, L3400.8000, L504.2610, L100.0100, L501.9985, L101.9900 #### [facility] [address] [place], [address] Cytoplasmic Ab <1:20 Normal Neg:<1:20 [facility] Comment on above: Performed By: #### L 500.4050, L3100.5440, L300.3900, L503.6150, L501.6710, L3300.1200, L3100.3425, L3200.1100, L501.9520, L5500.0410, L3000.0375, L3410.2400, L3400.8000, L504.2610, L100.0100, L501.9985, L101.9900 #### [facility] [address] [place], [address] Perinuclear Ab. 1:80 Abnormal Neg:<1:20 [facility] Comment on above: Result Comment: The presence of positive fluorescence exhibiting P-ANCA or C-ANCA patterns alone is not specific for the diagnosis of Santa's Granulomatosis (WG) or microscopic polyangiitis. Decisions about treatment should not be based solely on ANCA IFA results. The International ANCA Group Consensus recommends follow up testing of positive sera with both AK- 3 and MPO-ANCA enzyme immunoassays. As many as 5% serum samples are positive only by EIA. Ref. AM J Clin Pathol 1999;111:507-513. Performed By: #### L 500.4050, L3100.5440, L300.3900, L503.6150, L501.6710, L3300.1200, L3100.3425, L3200.1100, L501.9520, L5500.0410, L3000.0375, L3410.2400, L3400.8000, L504.2610, L100.0100, L501.9985, L101.9900 #### [facility] [address] [place], [place], [id number] Allergen, Food Profileon CLAM <0.10 Normal Class 0 [facility] [facility] Comment on above: Performed By: #### L 500.4050, L3100.5440, L300.3900, L503.6150, L501.6710, L3300.1200, L3100.3425, L3200.1100, L501.9520, L5500.0410, L3000.0375, L3410.2400, L3400.8000, L504.2610, L100.0100, L501.9985, L101.9900 #### [facility] [address] [place], [place], [id number] CODFISH <0.10 Normal Class 0 [facility] Comment on above: Performed By: #### L 500.4050, L3100.5440, L300.3900, L503.6150, L501.6710, L3300.1200, L3100.3425, L3200.1100, L501.9520, L5500.0410, L3000.0375, L3410.2400, L3400.8000, L504.2610, L100.0100, L501.9985, L101.9900 #### [facility] [address] [place], [address] COMMENT Comment Normal . [facility] Comment on above: Result Comment: Christian mann of Specific IgE Class Description of Class ----- < 0.10 0 Negative 0.10 - 0.31 0/I Equivocal/Low 0.32 - 0.55 I Low 0.56 - 1.40 II Moderate 1.41 - 3.90 III High 3.91 - 19.00 IV Very High 19.01 - 100.00 V Very High >100.00 Very High Performed By: #### L 500.4050, L3100.5440, L300.3900, L503.6150, L501.6710, L3300.1200, L3100.3425, L3200.1100, L501.9520, L5500.0410, L3000.0375, L3410.2400, L3400.8000, L504.2610, L100.0100, L501.9985, L101.9900 #### [facility] [address] [place], [place], [id number] CORN <0.10 Normal Class 0 [facility] Comment on above: Performed By: #### L 500.4050, L3100.5440, L300.3900, L503.6150, L501.6710, L3300.1200, L3100.3425, L3200.1100, L501.9520, L5500.0410, L3000.0375, L3410.2400, L3400.8000, L504.2610, L100.0100, L501.9985, L101.9900 #### [facility] [address] [place], [place], [id number] EGG, WHITE <0.10 Normal Class 0 [facility] Comment on above: Performed By: #### L 500.4050, L3100.5440, L300.3900, L503.6150, L501.6710, L3300.1200, L3100.3425, L3200.1100, L501.9520, L5500.0410, L3000.0375, L3410.2400, L3400.8000, L504.2610, L100.0100, L501.9985, L101.9900 #### [facility] [address] [place], [place], [id number] MILK (COW) <0.10 Normal Class 0 [facility] Comment on above: Performed By: #### L 500.4050, L3100.5440, L300.3900, L503.6150, L501.6710, L3300.1200, L3100.3425, L3200.1100, L501.9520, L5500.0410, L3000.0375, L3410.2400, L3400.8000, L504.2610, L100.0100, L501.9985, L101.9900 #### [facility] [place], [address] PEANUT <0.10 Normal Class 0 [facility] Comment on above: Performed By: #### L 500.4050, L3100.5440, L300.3900, L503.6150, L501.6710, L3300.1200, L3100.3425, L3200.1100, L501.9520, L5500.0410, L3000.0375, L3410.2400, L3400.8000, L504.2610, L100.0100, L501.9985, L101.9900 #### [facility] [place], [address] SCALLOP <0.10 Normal Class 0 [facility] Comment on above: Performed By: #### L 500.4050, L3100.5440, L300.3900, L503.6150, L501.6710, L3300.1200, L3100.3425, L3200.1100, L501.9520, L5500.0410, L3000.0375, L3410.2400, L3400.8000, L504.2610, L100.0100, L501.9985, L101.9900 #### [facility] [address] [place], [place], [id number] SESAME SEED <0.10 Normal Class 0 [facility] Comment on above: Result Comment: Perf ormed at: [address] [id number] Cooling Tower Technician: Wilfrid Mancia PhD, Phone: [phone] Performed at: [facility] [address] [id number] Cooling Tower Technician: Blaise Mcgraw MD, Phone: [phone] Performed By: #### L 500.4050, L3100.5440, L300.3900, L503.6150, L501.6710, L3300.1200, L3100.3425, L3200.1100, L501.9520, L5500.0410, L3000.0375, L3410.2400, L3400.8000, L504.2610, L100.0100, L501.9985, L101.9900 #### [facility] [address] [place], [place], [id number] SHRIMP <0.10 Normal Class 0 [facility] Comment on above: Performed By: #### L 500.4050, L3100.5440, L300.3900, L503.6150, L501.6710, L3300.1200, L3100.3425, L3200.1100, L501.9520, L5500.0410, L3000.0375, L3410.2400, L3400.8000, L504.2610, L100.0100, L501.9985, L101.9900 #### [facility] [address] [place], [place], [address] SOYBEAN <0.10 Normal Class 0 [facility] Comment on above: Performed By: #### L 500.4050, L3100.5440, L300.3900, L503.6150, L501.6710, L3300.1200, L3100.3425, L3200.1100, L501.9520, L5500.0410, L3000.0375, L3410.2400, L3400.8000, L504.2610, L100.0100, L501.9985, L101.9900 #### [facility] [address] [facility] [place], [place], [address] WALNUT,(Food) <0.10 Normal Class 0 [facility] Comment on above: Performed By: #### L 500.4050, L3100.5440, L300.3900, L503.6150, L501.6710, L3300.1200, L3100.3425, L3200.1100, L501.9520, L5500.0410, L3000.0375, L3410.2400, L3400.8000, L504.2610, L100.0100, L501.9985, L101.9900 #### [facility] [address] [facility] [address] [place], [place], [id number] WHEAT <0.10 Normal Class 0 [facility] Comment on above: Performed By: #### L 500.4050, L3100.5440, L300.3900, L503.6150, L501.6710, L3300.1200, L3100.3425, L3200.1100, L501.9520, L5500.0410, L3000.0375, L3410.2400, L3400.8000, L504.2610, L100.0100, L501.9985, L101.9900 #### [facility] [address] [facility] [place], [place], [id number] Celiac Disease Profileon ENDOMYSIAL IGA Negative Normal Negative [facility] Comment on above: Performed By: #### L 500.4050, L3100.5440, L300.3900, L503.6150, L501.6710, L3300.1200, L3100.3425, L3200.1100, L501.9520, L5500.0410, L3000.0375, L3410.2400, L3400.8000, L504.2610, L100.0100, L501.9985, L101.9900 #### [facility] [address] [place], [address] tTG IGA <2 Normal 0-3 [facility] Comment on above: Result Comment: Nega tive 0 - 3 Weak Positive 4 - 10 Positive >10 Tissue Transglutaminase (tTG) has been identified as the endomysial antigen. Studies have demonstr- ated that endomysial IgA antibodies have over 99% specificity for gluten sensitive enteropathy. Performed By: #### L 500.4050, L3100.5440, L300.3900, L503.6150, L501.6710, L3300.1200, L3100.3425, L3200.1100, L501.9520, L5500.0410, L3000.0375, L3410.2400, L3400.8000, L504.2610, L100.0100, L501.9985, L101.9900 #### [facility] [address] [facility] [place], [address] Hepatitis Panel Acuteon 07-0 COMMENT Comment Normal . [facility] Comment on above: Result Comment: Not infected with HCV unless early or acute infection is suspected (which may be delayed in an immunocompromised individual), or other evidence exists to indicate HCV infection. Performed By: #### L 500.4050, L3100.5440, L300.3900, L503.6150, L501.6710, L3300.1200, L3100.3425, L3200.1100, L501.9520, L5500.0410, L3000.0375, L3410.2400, L3400.8000, L504.2610, L100.0100, L501.9985, L101.9900 #### [facility] [address] [place], [place], [address] HEP B CORE,IgM Negative Normal Negative [facility] Comment on above: Performed By: #### L 500.4050, L3100.5440, L300.3900, L503.6150, L501.6710, L3300.1200, L3100.3425, L3200.1100, L501.9520, L5500.0410, L3000.0375, L3410.2400, L3400.8000, L504.2610, L100.0100, L501.9985, L101.9900 #### [facility] [address] [place], [address] HEP B SURF AG Negative Normal Negative [facility] Comment on above: Performed By: #### L 500.4050, L3100.5440, L300.3900, L503.6150, L501.6710, L3300.1200, L3100.3425, L3200.1100, L501.9520, L5500.0410, L3000.0375, L3410.2400, L3400.8000, L504.2610, L100.0100, L501.9985, L101.9900 #### [facility] [address] [facility] [place], [address] HEP C VIRUS AB Non-Reactive Normal Non Reactive [facility] Comment on above: Performed By: #### L 500.4050, L3100.5440, L300.3900, L503.6150, L501.6710, L3300.1200, L3100.3425, L3200.1100, L501.9520, L5500.0410, L3000.0375, L3410.2400, L3400.8000, L504.2610, L100.0100, L501.9985, L101.9900 #### [facility] [address] [facility] [place], [address] HEPATITIS A-IgM Negative Normal Negative [facility] Comment on above: Result Comment: A ne gative anti-HAV IgM result suggests no recent or current HAV infection. Performed By: #### L 500.4050, L3100.5440, L300.3900, L503.6150, L501.6710, L3300.1200, L3100.3425, L3200.1100, L501.9520, L5500.0410, L3000.0375, L3410.2400, L3400.8000, L504.2610, L100.0100, L501.9985, L101.9900 #### [facility] [address] [place], [place], [id number] DAWSON + Protein Elect, Serumon 09-28-2024 Albumin [Mass/Vol] 3.2 g/dL Normal 2.9-4.4 [facility] Comment on above: Order Comment: N Performed By: #### L 500.4050, L3100.5440, L300.3900, L503.6150, L501.6710, L3300.1200, L3100.3425, L3200.1100, L501.9520, L5500.0410, L3000.0375, L3410.2400, L3400.8000, L504.2610, L100.0100, L501.9985, L101.9900 #### [facility] [address] [place], [address] Albumin/Globulin [Mass ratio] 1.1 {ratio} Normal 0.7-1.7 [facility] Comment on above: Order Comment: N Performed By: #### L 500.4050, L3100.5440, L300.3900, L503.6150, L501.6710, L3300.1200, L3100.3425, L3200.1100, L501.9520, L5500.0410, L3000.0375, L3410.2400, L3400.8000, L504.2610, L100.0100, L501.9985, L101.9900 #### [facility] [address] [place], [place], [id number] CFUGT-7-OFKH 0.3 g/dL Normal 0.0-0.4 [facility] Comment on above: Order Comment: N Performed By: #### L 500.4050, L3100.5440, L300.3900, L503.6150, L501.6710, L3300.1200, L3100.3425, L3200.1100, L501.9520, L5500.0410, L3000.0375, L3410.2400, L3400.8000, L504.2610, L100.0100, L501.9985, L101.9900 #### [facility] [address] [place], [address] (491) YDNUX-5-TMRV 1.0 g/dL Normal 0.4-1.0 [facility] Comment on above: Order Comment: N Performed By: #### L 500.4050, L3100.5440, L300.3900, L503.6150, L501.6710, L3300.1200, L3100.3425, L3200.1100, L501.9520, L5500.0410, L3000.0375, L3410.2400, L3400.8000, L504.2610, L100.0100, L501.9985, L101.9900 #### [facility] [address] [place], [address] (706) BETA GLOBULIN 1.0 g/dL Normal 0.7-1.3 [facility] Comment on above: Order Comment: N Performed By: #### L 500.4050, L3100.5440, L300.3900, L503.6150, L501.6710, L3300.1200, L3100.3425, L3200.1100, L501.9520, L5500.0410, L3000.0375, L3410.2400, L3400.8000, L504.2610, L100.0100, L501.9985, L101.9900 #### [facility] [address] [place], [address] (164) GAMMA GLOBULIN 0.8 g/dL Normal 0.4-1.8 [facility] Comment on above: Order Comment: N Performed By: #### L 500.4050, L3100.5440, L300.3900, L503.6150, L501.6710, L3300.1200, L3100.3425, L3200.1100, L501.9520, L5500.0410, L3000.0375, L3410.2400, L3400.8000, L504.2610, L100.0100, L501.9985, L101.9900 #### [facility] [address] [place], [place], [id number] (170) Globulin (S) [Mass/Vol] 3.1 g/dL Normal 2.2-3.9 [facility] Comment on above: Order Comment: N Performed By: #### L 500.4050, L3100.5440, L300.3900, L503.6150, L501.6710, L3300.1200, L3100.3425, L3200.1100, L501.9520, L5500.0410, L3000.0375, L3410.2400, L3400.8000, L504.2610, L100.0100, L501.9985, L101.9900 #### [facility] [address] [place], [place], [id number] DAWSON RESULT,S Comment Normal . [facility] Comment on above: Order Comment: N Result Comment: No m onoclonality detected. Performed By: #### L 500.4050, L3100.5440, L300.3900, L503.6150, L501.6710, L3300.1200, L3100.3425, L3200.1100, L501.9520, L5500.0410, L3000.0375, L3410.2400, L3400.8000, L504.2610, L100.0100, L501.9985, L101.9900 #### [facility] [address] [place], [place], [id number] IMMUNOGLOB A QN 175 mg/dL Normal 87-352 [facility] Comment on above: Order Comment: N Performed By: #### L 500.4050, L3100.5440, L300.3900, L503.6150, L501.6710, L3300.1200, L3100.3425, L3200.1100, L501.9520, L5500.0410, L3000.0375, L3410.2400, L3400.8000, L504.2610, L100.0100, L501.9985, L101.9900 #### [facility] [address] [place], [address] IMMUNOGLOB G QN 724 mg/dL Normal 586-1602 [facility] Comment on above: Order Comment: N Performed By: #### L 500.4050, L3100.5440, L300.3900, L503.6150, L501.6710, L3300.1200, L3100.3425, L3200.1100, L501.9520, L5500.0410, L3000.0375, L3410.2400, L3400.8000, L504.2610, L100.0100, L501.9985, L101.9900 #### [facility] [address] [place], [address] IMMUNOGLOB M QN 211 mg/dL Normal 26-217 [facility] Comment on above: Order Comment: N Performed By: #### L 500.4050, L3100.5440, L300.3900, L503.6150, L501.6710, L3300.1200, L3100.3425, L3200.1100, L501.9520, L5500.0410, L3000.0375, L3410.2400, L3400.8000, L504.2610, L100.0100, L501.9985, L101.9900 #### [facility] [address] [place], [address] M-Duke Not Observed Normal Not Observed [facility] Comment on above: Order Comment: N Performed By: #### L 500.4050, L3100.5440, L300.3900, L503.6150, L501.6710, L3300.1200, L3100.3425, L3200.1100, L501.9520, L5500.0410, L3000.0375, L3410.2400, L3400.8000, L504.2610, L100.0100, L501.9985, L101.9900 #### [facility] [address] [place], [place], [address] NOTE: Comment Normal . [facility] Comment on above: Order Comment: N Result Comment: Prot ein electrophoresis scan will follow via computer, mail, or trail maintenance worker delivery. Performed By: #### L 500.4050, L3100.5440, L300.3900, L503.6150, L501.6710, L3300.1200, L3100.3425, L3200.1100, L501.9520, L5500.0410, L3000.0375, L3410.2400, L3400.8000, L504.2610, L100.0100, L501.9985, L101.9900 #### [facility] [address] [place], [address] Protein [Mass/Vol] 6.3 g/dL Normal 6.0-8.5 [facility] Comment on above: Order Comment: N Performed By: #### L 500.4050, L3100.5440, L300.3900, L503.6150, L501.6710, L3300.1200, L3100.3425, L3200.1100, L501.9520, L5500.0410, L3000.0375, L3410.2400, L3400.8000, L504.2610, L100.0100, L501.9985, L101.9900 #### [facility] [address] [facility] [place], [address] Immunoglobulins G/A/M/Dillon IMMUNOGLOB E QN 27 IU/mL Normal 6-495 [facility] Comment on above: Order Comment: N Performed By: #### L 500.4050, L3100.5440, L300.3900, L503.6150, L501.6710, L3300.1200, L3100.3425, L3200.1100, L501.9520, L5500.0410, L3000.0375, L3410.2400, L3400.8000, L504.2610, L100.0100, L501.9985, L101.9900 #### [facility] [address] [place], [address] Quantiferon TB-Gold+on 09-28 QFT MITOGEN ESTELA > 10.00 Normal . [facility] Comment on above: Performed By: #### L 500.4050, L3100.5440, L300.3900, L503.6150, L501.6710, L3300.1200, L3100.3425, L3200.1100, L501.9520, L5500.0410, L3000.0375, L3410.2400, L3400.8000, L504.2610, L100.0100, L501.9985, L101.9900 #### [facility] [address] [place], [address] (830 QFT NIL VALUE 0.03 IU/mL Normal . [facility] Comment on above: Performed By: #### L 500.4050, L3100.5440, L300.3900, L503.6150, L501.6710, L3300.1200, L3100.3425, L3200.1100, L501.9520, L5500.0410, L3000.0375, L3410.2400, L3400.8000, L504.2610, L100.0100, L501.9985, L101.9900 #### [facility] [address] [place], [address] QFT TB GOLD+ Comment Normal . [facility] Comment on above: Result Comment: Angelito tiFERON-TB Gold Plus is a qualitative indirect test for M tuberculosis infection (including disease) and is intended for use in conjunction with risk assessment, radiography, and other medical and diagnostic evaluations. The QuantiFERON-TB Gold Plus result is determined by subtracting the Nil value from either TB antigen (Ag) value. The Mitogen tube serves as a control for the test. Performed By: #### L 500.4050, L3100.5440, L300.3900, L503.6150, L501.6710, L3300.1200, L3100.3425, L3200.1100, L501.9520, L5500.0410, L3000.0375, L3410.2400, L3400.8000, L504.2610, L100.0100, L501.9985, L101.9900 #### [facility] [address] [place], [address] QFT TB POS CRIT Positive Abnormal Negative [facility] Comment on above: Result Comment: Milly cantu Requested Flag A response to M tuberculosis antigens has been detected. If patient is at low risk for Tuberculosis, the result should be interpreted with caution and repeat testing on a new specimen is recommended (ATS/IDSA/CDC Clinical Practice Guidelines, 2017). False positives can also occur due to infection by M kansasii, M szulgai, or M marinum. The specimen received for QuantiFERON testing was incubated by the ordering institution. Specific procedures outlined in our Directory of Services and in the package insert for the QuantiFERON Gold (In Tube) test must be followed to enable for proper stimulation of cells for the production of interferon gamma. Chemiluminescence immunoassay methodology Performed By: #### L 500.4050, L3100.5440, L300.3900, L503.6150, L501.6710, L3300.1200, L3100.3425, L3200.1100, L501.9520, L5500.0410, L3000.0375, L3410.2400, L3400.8000, L504.2610, L100.0100, L501.9985, L101.9900 #### [facility] [address] [place], [address] QFT TB1+ AG ESTELA 0.40 IU/mL Normal . [facility] Comment on above: Performed By: #### L 500.4050, L3100.5440, L300.3900, L503.6150, L501.6710, L3300.1200, L3100.3425, L3200.1100, L501.9520, L5500.0410, L3000.0375, L3410.2400, L3400.8000, L504.2610, L100.0100, L501.9985, L101.9900 #### [facility] [address] [place], [place], [id number] QFT TB2+ AG ESTELA 0.42 IU/mL Normal . [facility] Comment on above: Performed By: #### L 500.4050, L3100.5440, L300.3900, L503.6150, L501.6710, L3300.1200, L3100.3425, L3200.1100, L501.9520, L5500.0410, L3000.0375, L3410.2400, L3400.8000, L504.2610, L100.0100, L501.9985, L101.9900 #### [facility] [address] [place], [address] Absolute lymphocyte countOrd ered By: Aly Carlos on 09-23-2024 Lymphocytes Auto (Unsp spec) [#/Vol] 3.07 10*3/uL 0.83-4.51 [facility] Absolute neutrophil countOrd ered By: Aly Carlos on 09-23-2024 Neutrophils (Bld) [#/Vol] 3.5 10*3/uL 2.0-7.7 [facility] Albumin Elph [Mass/Vol]Order ed By: Aly Carlos on 09-23-2024 Albumin [Mass/Vol] 3.2 g/dL 2.9-4.4 [facility] Anion gap in Serum or Plasma Ordered By: Aly Carlos on 09-23-2024 Anion gap [Moles/Vol] 13 mmol/L 5-15 [facility] Automated lymphocyte count a s percentage of total leukocytesOrdered By: Aly Carlos on 09-23-2024 Lymphocytes/100 WBC Auto (Unsp spec) 44.6 % High 19-41 [facility] BUN/creatinine ratioOrdered By: Aly Friend on 09-23-2024 Urea nitrogen/Creatinine [Mass ratio] 10.5 mg/mg 10-20 [facility] Basophil percentageOrdered B y: Aly Friend on 09-23-2024 Basophils/100 WBC (Bld) 0.3 % 0-1 [facility] Bilirubin, totalOrdered By: Aly Friend on 09-23-2024 Bilirubin [Mass/Vol] 0.23 mg/dL 0.00-1.30 [facility] CBC W/Diff, Automatedon 07-0 -2024 Absolute Lymph 3.07 X10 3/uL Normal 0.83-4.51 [facility] Comment on above: Performed By: #### L 500.4050, L3100.5440, L300.3900, L503.6150, L501.6710, L3300.1200, L3100.3425, L3200.1100, L501.9520, L5500.0410, L3000.0375, L3410.2400, L3400.8000, L504.2610, L100.0100, L501.9985, L101.9900 #### [facility] [address] [place], [place], [id number] ([phone] Absolute Neut 3.5 X10 3/uL Normal 2.0-7.7 [facility] Comment on above: Performed By: #### L 500.4050, L3100.5440, L300.3900, L503.6150, L501.6710, L3300.1200, L3100.3425, L3200.1100, L501.9520, L5500.0410, L3000.0375, L3410.2400, L3400.8000, L504.2610, L100.0100, L501.9985, L101.9900 #### [facility] [address] [place], [place], [phone] ([phone] Basophils/100 WBC (Bld) 0.3 % Normal 0-1 [facility] Comment on above: Performed By: #### L 500.4050, L3100.5440, L300.3900, L503.6150, L501.6710, L3300.1200, L3100.3425, L3200.1100, L501.9520, L5500.0410, L3000.0375, L3410.2400, L3400.8000, L504.2610, L100.0100, L501.9985, L101.9900 #### [facility] [address] [facility] [address] [place], [place], [id number] (032) Eosinophils/100 WBC (Bld) 0.1 % Normal 0-5 [facility] Comment on above: Performed By: #### L 500.4050, L3100.5440, L300.3900, L503.6150, L501.6710, L3300.1200, L3100.3425, L3200.1100, L501.9520, L5500.0410, L3000.0375, L3410.2400, L3400.8000, L504.2610, L100.0100, L501.9985, L101.9900 #### [facility] [address] [place], [place], [id number] Erythrocyte distribution width (RBC) [Ratio] 12.8 % Normal 11.6-14.6 [facility] Comment on above: Performed By: #### L 500.4050, L3100.5440, L300.3900, L503.6150, L501.6710, L3300.1200, L3100.3425, L3200.1100, L501.9520, L5500.0410, L3000.0375, L3410.2400, L3400.8000, L504.2610, L100.0100, L501.9985, L101.9900 #### [facility] [address] [place], [place], [id number] Hematocrit (Bld) [Volume fraction] 41.0 % Normal 37-47 [facility] Comment on above: Performed By: #### L 500.4050, L3100.5440, L300.3900, L503.6150, L501.6710, L3300.1200, L3100.3425, L3200.1100, L501.9520, L5500.0410, L3000.0375, L3410.2400, L3400.8000, L504.2610, L100.0100, L501.9985, L101.9900 #### [facility] [address] [place], [place], [id number] Hemoglobin (Bld) [Mass/Vol] 14.2 g/dL Normal 12.0-15.0 [facility] Comment on above: Performed By: #### L 500.4050, L3100.5440, L300.3900, L503.6150, L501.6710, L3300.1200, L3100.3425, L3200.1100, L501.9520, L5500.0410, L3000.0375, L3410.2400, L3400.8000, L504.2610, L100.0100, L501.9985, L101.9900 #### [facility] [address] [place], [address] IG% 0.100 Normal 0.0-0.9 [facility] Comment on above: Result Comment: IG% - Immature Granulocytes (promyelocytes, myelocytes and metamyelocytes) > 1% indicates that a LEFT SHIFT is Present. Performed By: #### L 500.4050, L3100.5440, L300.3900, L503.6150, L501.6710, L3300.1200, L3100.3425, L3200.1100, L501.9520, L5500.0410, L3000.0375, L3410.2400, L3400.8000, L504.2610, L100.0100, L501.9985, L101.9900 #### [facility] [address] [place], [address] Lymphocytes/100 WBC (Bld) 44.6 % High 19-41 [facility] Comment on above: Performed By: #### L 500.4050, L3100.5440, L300.3900, L503.6150, L501.6710, L3300.1200, L3100.3425, L3200.1100, L501.9520, L5500.0410, L3000.0375, L3410.2400, L3400.8000, L504.2610, L100.0100, L501.9985, L101.9900 #### [facility] [address] [place], [address] [facility] (RBC) [Entitic mass] 30.7 pg Normal 27.0-32.0 [facility] Comment on above: Performed By: #### L 500.4050, L3100.5440, L300.3900, L503.6150, L501.6710, L3300.1200, L3100.3425, L3200.1100, L501.9520, L5500.0410, L3000.0375, L3410.2400, L3400.8000, L504.2610, L100.0100, L501.9985, L101.9900 #### [facility] [address] [place], [address] MCHC (RBC) [Mass/Vol] 34.6 g/dL Normal 32-36 [facility] Comment on above: Performed By: #### L 500.4050, L3100.5440, L300.3900, L503.6150, L501.6710, L3300.1200, L3100.3425, L3200.1100, L501.9520, L5500.0410, L3000.0375, L3410.2400, L3400.8000, L504.2610, L100.0100, L501.9985, L101.9900 #### [facility] [address] [place], [address] MCV (RBC) [Entitic vol] 88.6 fL Normal 81-99 [facility] Comment on above: Performed By: #### L 500.4050, L3100.5440, L300.3900, L503.6150, L501.6710, L3300.1200, L3100.3425, L3200.1100, L501.9520, L5500.0410, L3000.0375, L3410.2400, L3400.8000, L504.2610, L100.0100, L501.9985, L101.9900 #### [facility] [address] [place], [address] Monocytes/100 WBC (Bld) 4.1 % Normal 0-10 [facility] Comment on above: Performed By: #### L 500.4050, L3100.5440, L300.3900, L503.6150, L501.6710, L3300.1200, L3100.3425, L3200.1100, L501.9520, L5500.0410, L3000.0375, L3410.2400, L3400.8000, L504.2610, L100.0100, L501.9985, L101.9900 #### [facility] [address] [place], [address] Neutrophils/100 WBC (Bld) 50.8 % Normal 47-70 [facility] Comment on above: Performed By: #### L 500.4050, L3100.5440, L300.3900, L503.6150, L501.6710, L3300.1200, L3100.3425, L3200.1100, L501.9520, L5500.0410, L3000.0375, L3410.2400, L3400.8000, L504.2610, L100.0100, L501.9985, L101.9900 #### [facility] [address] [place], [address] Nucleated RBC (Bld) [#/Vol] 0 10*3/uL Normal 0-5 [facility] Comment on above: Performed By: #### L 500.4050, L3100.5440, L300.3900, L503.6150, L501.6710, L3300.1200, L3100.3425, L3200.1100, L501.9520, L5500.0410, L3000.0375, L3410.2400, L3400.8000, L504.2610, L100.0100, L501.9985, L101.9900 #### [facility] [address] [place], [address] Platelet mean volume (Bld) [Entitic vol] 10.0 fL Normal 6.2-12.0 [facility] Comment on above: Performed By: #### L 500.4050, L3100.5440, L300.3900, L503.6150, L501.6710, L3300.1200, L3100.3425, L3200.1100, L501.9520, L5500.0410, L3000.0375, L3410.2400, L3400.8000, L504.2610, L100.0100, L501.9985, L101.9900 #### [facility] [address] [facility] [place], [address] Platelets (Bld) [#/Vol] 302 10*3/uL Normal 150-450 [facility] Comment on above: Performed By: #### L 500.4050, L3100.5440, L300.3900, L503.6150, L501.6710, L3300.1200, L3100.3425, L3200.1100, L501.9520, L5500.0410, L3000.0375, L3410.2400, L3400.8000, L504.2610, L100.0100, L501.9985, L101.9900 #### [facility] [address] [place], [address] RBC (Bld) [#/Vol] 4.63 10*6/uL Normal 4.2-5.4 [facility] Comment on above: Performed By: #### L 500.4050, L3100.5440, L300.3900, L503.6150, L501.6710, L3300.1200, L3100.3425, L3200.1100, L501.9520, L5500.0410, L3000.0375, L3410.2400, L3400.8000, L504.2610, L100.0100, L501.9985, L101.9900 #### [facility] [address] [place], [place], [id number] RDW SD 41.1 fl Normal 35.1-43.9 [facility] Comment on above: Performed By: #### L 500.4050, L3100.5440, L300.3900, L503.6150, L501.6710, L3300.1200, L3100.3425, L3200.1100, L501.9520, L5500.0410, L3000.0375, L3410.2400, L3400.8000, L504.2610, L100.0100, L501.9985, L101.9900 #### [facility] [address] [facility] [place], [place], [id number] WBC (Bld) [#/Vol] 6.9 10*3/uL Normal 4.4-11.0 [facility] Comment on above: Performed By: #### L 500.4050, L3100.5440, L300.3900, L503.6150, L501.6710, L3300.1200, L3100.3425, L3200.1100, L501.9520, L5500.0410, L3000.0375, L3410.2400, L3400.8000, L504.2610, L100.0100, L501.9985, L101.9900 #### [facility] [address] [place], [place], [id number] CRPon 09-23-2024 C-REACTIVE PROT 26.10 mg/L High 0.0-3.0 [facility] Comment on above: Performed By: #### L 500.4050, L3100.5440, L300.3900, L503.6150, L501.6710, L3300.1200, L3100.3425, L3200.1100, L501.9520, L5500.0410, L3000.0375, L3410.2400, L3400.8000, L504.2610, L100.0100, L501.9985, L101.9900 #### [facility] [address] [place], [address] Carbon dioxide, total [Moles /volume] in Central venous bloodOrdered By: Aly Carlos on 09-23-2024 CO2 [Moles/Vol] 22.7 mmol/L 21.0-32.0 [facility] Chloride assayOrdered By: Ra tammy Carlos on 09-23-2024 Chloride [Moles/Vol] 102 mmol/L 98-108 [facility] Comprehensive Metabolic Prof ilon 09-23-2024 Albumin [Mass/Vol] 4.1 g/dL Normal 3.5-5.0 [facility] Comment on above: Performed By: #### L 500.4050, L3100.5440, L300.3900, L503.6150, L501.6710, L3300.1200, L3100.3425, L3200.1100, L501.9520, L5500.0410, L3000.0375, L3410.2400, L3400.8000, L504.2610, L100.0100, L501.9985, L101.9900 #### [facility] [address] [place], [address] Albumin/Globulin [Mass ratio] 1.4 {ratio} Normal 0.9-2.4 [facility] Comment on above: Performed By: #### L 500.4050, L3100.5440, L300.3900, L503.6150, L501.6710, L3300.1200, L3100.3425, L3200.1100, L501.9520, L5500.0410, L3000.0375, L3410.2400, L3400.8000, L504.2610, L100.0100, L501.9985, L101.9900 #### [facility] [address] [place], [place], [id number] ALK PHOS 159 U/L High 35-104 [facility] Comment on above: Performed By: #### L 500.4050, L3100.5440, L300.3900, L503.6150, L501.6710, L3300.1200, L3100.3425, L3200.1100, L501.9520, L5500.0410, L3000.0375, L3410.2400, L3400.8000, L504.2610, L100.0100, L501.9985, L101.9900 #### [facility] [address] [facility] [place], [address] ALT [Catalytic activity/Vol] 16 U/L Normal <=34 [facility] Comment on above: Performed By: #### L 500.4050, L3100.5440, L300.3900, L503.6150, L501.6710, L3300.1200, L3100.3425, L3200.1100, L501.9520, L5500.0410, L3000.0375, L3410.2400, L3400.8000, L504.2610, L100.0100, L501.9985, L101.9900 #### [facility] [address] [place], [address] AST [Catalytic activity/Vol] 14 U/L Normal <=31 [facility] Comment on above: Performed By: #### L 500.4050, L3100.5440, L300.3900, L503.6150, L501.6710, L3300.1200, L3100.3425, L3200.1100, L501.9520, L5500.0410, L3000.0375, L3410.2400, L3400.8000, L504.2610, L100.0100, L501.9985, L101.9900 #### [facility] [address] [place], [place], [id number] Bilirubin [Mass/Vol] 0.23 mg/dL Normal 0.00-1.30 [facility] Comment on above: Performed By: #### L 500.4050, L3100.5440, L300.3900, L503.6150, L501.6710, L3300.1200, L3100.3425, L3200.1100, L501.9520, L5500.0410, L3000.0375, L3410.2400, L3400.8000, L504.2610, L100.0100, L501.9985, L101.9900 #### [facility] [address] [place], [address] BUN/CRE 10.5 RATIO Normal 10-20 [facility] Comment on above: Performed By: #### L 500.4050, L3100.5440, L300.3900, L503.6150, L501.6710, L3300.1200, L3100.3425, L3200.1100, L501.9520, L5500.0410, L3000.0375, L3410.2400, L3400.8000, L504.2610, L100.0100, L501.9985, L101.9900 #### [facility] [address] [place], [address] Calcium [Mass/Vol] 9.2 mg/dL Normal 7.6-11.0 [facility] Comment on above: Performed By: #### L 500.4050, L3100.5440, L300.3900, L503.6150, L501.6710, L3300.1200, L3100.3425, L3200.1100, L501.9520, L5500.0410, L3000.0375, L3410.2400, L3400.8000, L504.2610, L100.0100, L501.9985, L101.9900 #### [facility] [address] [place], [place], [id number] Chloride [Moles/Vol] 102 mmol/L Normal 98-108 [facility] Comment on above: Performed By: #### L 500.4050, L3100.5440, L300.3900, L503.6150, L501.6710, L3300.1200, L3100.3425, L3200.1100, L501.9520, L5500.0410, L3000.0375, L3410.2400, L3400.8000, L504.2610, L100.0100, L501.9985, L101.9900 #### [facility] [address] [place], [address] CO2 [Moles/Vol] 22.7 mmol/L Normal 21.0-32.0 [facility] Comment on above: Performed By: #### L 500.4050, L3100.5440, L300.3900, L503.6150, L501.6710, L3300.1200, L3100.3425, L3200.1100, L501.9520, L5500.0410, L3000.0375, L3410.2400, L3400.8000, L504.2610, L100.0100, L501.9985, L101.9900 #### [facility] [address] [place], [place], [id number] Creatinine [Mass/Vol] 0.61 mg/dL Low 0.70-1.20 [facility] Comment on above: Performed By: #### L 500.4050, L3100.5440, L300.3900, L503.6150, L501.6710, L3300.1200, L3100.3425, L3200.1100, L501.9520, L5500.0410, L3000.0375, L3410.2400, L3400.8000, L504.2610, L100.0100, L501.9985, L101.9900 #### [facility] [address] [place], [place], [id number] GAP 13 Normal 5-15 [facility] Comment on above: Performed By: #### L 500.4050, L3100.5440, L300.3900, L503.6150, L501.6710, L3300.1200, L3100.3425, L3200.1100, L501.9520, L5500.0410, L3000.0375, L3410.2400, L3400.8000, L504.2610, L100.0100, L501.9985, L101.9900 #### [facility] [address] [facility] [place], [address] GFR/1.73 sq M.predicted among non-blacks MDRD (S/P/Bld) [Vol rate/Area] 110 mL/min/{1.73_m2} Normal >60 [facility] Comment on above: Result Comment: mL/m in/1.73m2 CKD-EPI Creatinine Equation (2020) Performed By: #### L 500.4050, L3100.5440, L300.3900, L503.6150, L501.6710, L3300.1200, L3100.3425, L3200.1100, L501.9520, L5500.0410, L3000.0375, L3410.2400, L3400.8000, L504.2610, L100.0100, L501.9985, L101.9900 #### [facility] [address] [place], [address] Globulin (S) [Mass/Vol] 2.8 g/dL Normal 2.2-4.2 [facility] Comment on above: Performed By: #### L 500.4050, L3100.5440, L300.3900, L503.6150, L501.6710, L3300.1200, L3100.3425, L3200.1100, L501.9520, L5500.0410, L3000.0375, L3410.2400, L3400.8000, L504.2610, L100.0100, L501.9985, L101.9900 #### [facility] [address] [place], [address] Glucose [Mass/Vol] 92 mg/dL Normal 70-99 [facility] Comment on above: Performed By: #### L 500.4050, L3100.5440, L300.3900, L503.6150, L501.6710, L3300.1200, L3100.3425, L3200.1100, L501.9520, L5500.0410, L3000.0375, L3410.2400, L3400.8000, L504.2610, L100.0100, L501.9985, L101.9900 #### [facility] [address] [place], [address] Potassium [Moles/Vol] 3.8 mmol/L Normal 3.3-5.1 [facility] Comment on above: Performed By: #### L 500.4050, L3100.5440, L300.3900, L503.6150, L501.6710, L3300.1200, L3100.3425, L3200.1100, L501.9520, L5500.0410, L3000.0375, L3410.2400, L3400.8000, L504.2610, L100.0100, L501.9985, L101.9900 #### [facility] [address] [place], [address] Sodium [Moles/Vol] 138 mmol/L Normal 133-145 [facility] Comment on above: Performed By: #### L 500.4050, L3100.5440, L300.3900, L503.6150, L501.6710, L3300.1200, L3100.3425, L3200.1100, L501.9520, L5500.0410, L3000.0375, L3410.2400, L3400.8000, L504.2610, L100.0100, L501.9985, L101.9900 #### [facility] [address] [place], [address] T PROT 6.9 g/dL Normal 5.9-8.4 [facility] Comment on above: Performed By: #### L 500.4050, L3100.5440, L300.3900, L503.6150, L501.6710, L3300.1200, L3100.3425, L3200.1100, L501.9520, L5500.0410, L3000.0375, L3410.2400, L3400.8000, L504.2610, L100.0100, L501.9985, L101.9900 #### [facility] [address] [place], [address] Urea nitrogen [Mass/Vol] 6 mg/dL Normal 4-19 [facility] Comment on above: Performed By: #### L 500.4050, L3100.5440, L300.3900, L503.6150, L501.6710, L3300.1200, L3100.3425, L3200.1100, L501.9520, L5500.0410, L3000.0375, L3410.2400, L3400.8000, L504.2610, L100.0100, L501.9985, L101.9900 #### [facility] [address] [place], [address] Eosinophil percentageOrdered By: Aly Carlos on 09-23-2024 Eosinophils/100 WBC (Bld) 0.1 % 0-5 [facility] Erythrocyte Sed Rateon 09-23 SED RATE 13 mm/hr Normal 0-30 [facility] Comment on above: Performed By: #### L 500.4050, L3100.5440, L300.3900, L503.6150, L501.6710, L3300.1200, L3100.3425, L3200.1100, L501.9520, L5500.0410, L3000.0375, L3410.2400, L3400.8000, L504.2610, L100.0100, L501.9985, L101.9900 #### [facility] [address] [place], [address] Erythrocyte distribution wid th ratioOrdered By: Aly Carlos on 09-23-2024 Erythrocyte distribution width (RBC) [Ratio] 12.8 % 11.6-14.6 [facility] Erythrocyte distribution wid th standard deviationOrdered By: Aly Carlos on 09-23-2024 Erythrocyte distribution width (RBC) [Ratio] 41.1 fl 35.1-43.9 [facility] Erythrocyte sedimentation ra teOrdered By: Aly Carlos on 09-23-2024 ESR (Bld) [Velocity] 13 mm/h 0-30 [facility] Gastroenterology Visit Repor ton 09-23-2024 Gastroenterology Visit Report [facility] [address] [place] [address] OFFICE VISIT Date of Service: 09/23/24 MR#: [id number] Acct: [id number] Name: CATHY CAM Milly Rep #: [id number] : 1975 Provider: Aly Carlos DO Age/Sex: 49/F Location: [facility] [place] Status: Signed Intake Vital Signs 07/28/24 11:18 Height 5 ft Intake Visit Reasons: CONSTIPATION ABDOMINAL ISSUES Allergies quetiapine Allergy (Severe, Verified 07/28/24 11:23) seizures aspirin Allergy (Verified 07/28/24 11:23) Unknown latex Allergy (Verified 07/28/24 11:23) Itching pear (Pear) Allergy (Verified 07/28/24 11:23) Hives Penicillins Allergy (Verified 07/28/24 11:23) Hives shellfish derived Allergy (Verified 07/28/24 11:23) Hives erythromycin base Adverse Reaction (Intermediate, Verified 07/28/24 11:23) vomiting trazodone Adverse Reaction (Verified 07/28/24 11:23) seizures Medications ???Medication ???Instructions ???Recorded ???Confirmed ???Type cholecalciferol (vitamin D3) 25 25 mcg PO DAILY #10 caps 08/28/22 09/23/24 Rx mcg (1,000 unit) capsule levothyroxine 25 mcg tablet 25 mcg PO DAILY #10 tabs 08/28/22 09/23/24 Rx phenytoin sodium extended 100 mg 300 mg (3 x 100 mg) PO QHS #10 cap s 08/28/22 09/23/24 Rx capsule albuterol sulfate 90 mcg/actuation 1 - 2 puff inhalation Q4H PRN AK N 09/28/22 09/23/24 Rx aerosol inhaler (Ventolin HFA) Wheezing ##1 venlafaxine 75 mg capsule,extended 150 mg PO DAILY 11/06/22 5 History release 24 hr Nurse's Note: Pt was scheduled for EGD and Colonoscopy on 11.13.24 at the end of their appt today. Reviewed prep instructions and which medications to hold prior to procedure with pt in office. A paper copy of miralax prep instructions were given to pt. Pt denies any questions or concerns at this time. [facility] Medical History Kidney disease Hypothyroidism Seizures Anxiety Hyperlipidemia Depression Surgical History S/P tubal ligation S/P Family History Grandmother Lung cancer Ovarian cancer Diabetes Grandfather Lung cancer Prostate cancer Diabetes Social History (Updated 09/23/24 @ 11:06 by Seble Morgan) Smoking Status: Current every day smoker tobacco type: cigarettes alcohol intake: former year quit: 2021 substance use type: does not use caffeine: Yes what type of physical activity do you participate in: none seatbelt use: always do you feel safe at home: Yes additional social history: Single Female Reproductive History Menstrual Ab spontaneous: 3 HPI HPI Details: CATHY CAM, is a 49 F who presents to the office today for initial consult. *BGI established 7.1.25 with referral from her PCP for GI symptoms. Pt reports intermittent symptoms of nausea, alternating bowel movements, abd pain, gas/bloating, HB, and difficulty swallowing. Pt reports she has never had a colonoscopy. She has a history of alcohol abuse without cirrhosis. She was told she had a fatty liver. She has never had elastography. She did have a CT scan abdomen pelvis back in 2021. It showed hepatomegaly without splenomegaly. Also pancreas appeared normal as well as all associated GI structures. She did have some bloating and intermittent nausea. She was diagnosed with HPV. She has been followed by gynecology. She has no previous history of HIV or hepatitis. She does not drink alcohol anymore. She does have a seizure disorder. ROS Const Constitutional: Positive for headache(s) and weight change (weight gain); No fatigue or fever(s) ENT ENT: Positive for headache(s) and difficulty swallowing Gastro GI: Positive for abdominal pain, bloating, change in bowel habits, constipation, diarrhea, heartburn, difficulty swallowing, excessive flatus and nausea/dyspepsia; No belching, change in stool character, coffee ground emesis, cramping, feeling full early, incontinent of stools, Vomiting blood/hematemesis, Blood in stool, loose stools, Black,tarry stools, pain with swallowing, vomiting or other Musc Musculoskeletal: Positive for joint pain, back pain, joint swelling, muscle cramps, muscle weakness, stiffness and leg pain at night Skin Skin: Positive for dry skin and rash; No yellowing of the eye or itchy eyes Neuro Neurology: Positive for headache(s), seizures and other (vertigo) Psych Psychiatric: Positive for anxiety, Positive for depression and Positive for hyperactivity Endo Endocrine: Positive for weight change (weight gain); No fatigue Aller/Imm Allergy/Immunologic: No itchy eyes Pk/Lymp Hematologic/Lymphatic: Positive for easy bruising; No easy bleeding Exam Const General: cooperative, health (more content not included)... Normal [facility] Glomerular filtration rate ( GFR) estimation/1.73 sq m using serum, plasma, or whole bOrdered By: Aly Friend on 09-23-2024 GFR/1.73 sq M.predicted among non-blacks MDRD (S/P/Bld) [Vol rate/Area] 110 mL/min/{1.73_m2} >60 [facility] Comment on above: mL/min/1.73m2 CKD-EP I Creatinine Equation (2020) Hematocrit Auto (Bld) [Volum e fraction]Ordered By: Aly Carlos on 09-23-2024 Hematocrit (Bld) [Volume fraction] 41.0 % 37-47 [facility] Hemoglobin A1con 09-23-2024 HbA1c (Bld) [Mass fraction] 5.2 % Normal <=5.6 [facility] Comment on above: Result Comment: Norm al < 5.7 % Prediabetic 5.7 - 6.4 % Diabetic >or= 6.5 % Please note range changes. Performed By: #### L 500.4050, L3100.5440, L300.3900, L503.6150, L501.6710, L3300.1200, L3100.3425, L3200.1100, L501.9520, L5500.0410, L3000.0375, L3410.2400, L3400.8000, L504.2610, L100.0100, L501.9985, L101.9900 #### [facility] [address] [place] [address]. [place], [place], [id number] Hemoglobin A1c percentageOrd ered By: Aly Carlos on 09-23-2024 HbA1c (Bld) [Mass fraction] 5.2 % <5.7 [facility] Comment on above: Normal < 5.7 % Predi abetic 5.7 - 6.4 % Diabetic >or= 6.5 % Please note range changes. Hemoglobin measurementOrdere d By: Aly Carlos on 09-23-2024 Hemoglobin (Bld) [Mass/Vol] 14.2 g/dL 12.0-15.0 [facility] IgEOrdered By: Aly Woods d on 09-23-2024 IgE 27 IU/mL 6-495 [facility] Immature granulocytes/100 WB C Auto (Bld)Ordered By: Aly Carlos on 09-23-2024 Immature granulocytes/100 WBC (Bld) 0.100 % 0.0-0.9 [facility] Comment on above: IG% - Immature Granu locytes (promyelocytes, myelocytes and metamyelocytes) > 1% indicates that a LEFT SHIFT is Present. International normalized rat io (INR) calculationOrdered By: Aly Carlos on 09-23-2024 INR Coag (Bld) [Relative time] 1.0 {INR} [facility] Interpretation of serum or p lasma protein pattern by immunofixation (narrative resultOrdered By: Aly Carlos on 09-23-2024 Protein Fractions Immunofixation Mynor [Interp] Not Observed g/dL Not Observed [facility] Ironon 09-23-2024 Iron [Mass/Vol] 90 ug/dL Normal 50-170 [facility] Comment on above: Performed By: #### L 500.4050, L3100.5440, L300.3900, L503.6150, L501.6710, L3300.1200, L3100.3425, L3200.1100, L501.9520, L5500.0410, L3000.0375, L3410.2400, L3400.8000, L504.2610, L100.0100, L501.9985, L101.9900 #### [facility] [address] [facility] [place], [place], [id number] Iron measurement (mass/mass) Ordered By: Aly Carlos on 09-23-2024 Iron (Unsp spec) [Mass/Mass] 90 ug/dL 50-170 [facility] LDHon 09-23-2024 LDH 180 U/L Normal 84-246 [facility] Comment on above: Order Comment: 1 Performed By: #### L 500.4050, L3100.5440, L300.3900, L503.6150, L501.6710, L3300.1200, L3100.3425, L3200.1100, L501.9520, L5500.0410, L3000.0375, L3410.2400, L3400.8000, L504.2610, L100.0100, L501.9985, L101.9900 #### [facility] [address] [facility] [place], [address] Laboratory - Chemistry and C hemistry - challengeOrdered By: Aly Carlos on 09-23-2024 AST [Catalytic activity/Vol] 14 U/L <32 [facility] Laboratory - Miscellaneous t estsOrdered By: Aly Carlos on 09-23-2024 Service comment (Unsp spec) [Interp] Comment . [facility] Comment on above: Levels of Specific I gE Class Description of Class ----- < 0.10 0 Negative 0.10 - 0.31 0/I Equivocal/Low 0.32 - 0.55 I Low 0.56 - 1.40 II Moderate 1.41 - 3.90 III High 3.91 - 19.00 IV Very High 19.01 - 100.00 V Very High >100.00 Very High Lactate dehydrogenase (LDH) measurementOrdered By: Aly Carlos on 09-23-2024 LDH [Catalytic activity/Vol] 180 U/L 84-246 [facility] MCV (mean corpuscular volume ) determinationOrdered By: Aly Carlos on 09-23-2024 MCV (RBC) [Entitic vol] 88.6 fL 81-99 [facility] Mean corpuscular hemoglobin (MCH) determinationOrdered By: Aly Carlos on 09-23-2024 MCH (RBC) [Entitic mass] 30.7 pg 27.0-32.0 [facility] Mean corpuscular hemoglobin concentration (MCHC) determinationOrdered By: Ayl Carlos on 09-23-2024 MCHC (RBC) [Mass/Vol] 34.6 g/dL 32-36 [facility] Mean platelet volume determi nationOrdered By: Aly Carlos on 09-23-2024 Platelet mean volume (Bld) [Entitic vol] 10.0 fL 6.2-12.0 [facility] Monocyte percentageOrdered B y: Aly Carlos on 09-23-2024 Monocytes/100 WBC (Bld) 4.1 % 0-10 [facility] Neutrophil percentageOrdered By: Aly Carlos on 09-23-2024 Neutrophils/100 WBC (Bld) 50.8 % 47-70 [facility] No Panel InformationOrdered By: Aly Carlos on 09-23-2024 Addendum Document Comment . [facility] Comment on above: Protein electrophore sis scan will follow via computer,mail, or trail maintenance worker delivery. Hepatitis C Antibody Comment Comment . [facility] Comment on above: Not infected with HC V unless early or acute infection issuspected (which may be delayed in an immunocompromisedindividual), or other evidence exists to indicate HCVinfection. Nucleated red blood cell per centageOrdered By: Aly Carlos on 09-23-2024 Nucleated RBC/100 WBC (Bld) [Ratio] 0 % 0-5 [facility] Platelet countOrdered By: Ra tammy Carlos on 09-23-2024 Platelets (Bld) [#/Vol] 302 10*3/uL 150-450 [facility] Potassium measurement (mass/ volume)Ordered By: Aly Carlos on 09-23-2024 Potassium (Unsp spec) [Mass/Vol] 3.8 mmol/L 3.3-5.1 [facility] Prothrombin Time w/INRon INR Coag (PPP) [Relative time] 1.0 {INR} Normal [facility] Comment on above: Performed By: #### L 500.4050, L3100.5440, L300.3900, L503.6150, L501.6710, L3300.1200, L3100.3425, L3200.1100, L501.9520, L5500.0410, L3000.0375, L3410.2400, L3400.8000, L504.2610, L100.0100, L501.9985, L101.9900 #### [facility] Laboratory [address] [place], [place], [id number] PT Coag (PPP) [Time] 13.1 s Normal 11.7-14.9 [facility] Comment on above: Performed By: #### L 500.4050, L3100.5440, L300.3900, L503.6150, L501.6710, L3300.1200, L3100.3425, L3200.1100, L501.9520, L5500.0410, L3000.0375, L3410.2400, L3400.8000, L504.2610, L100.0100, L501.9985, L101.9900 #### [facility] [address] [place], [address] Prothrombin timeOrdered By: Aly Carlos on 09-23-2024 PT Coag (PPP) [Time] 13.1 s 11.7-14.9 [facility] Qualitative QuantiFERON-TB g old in tube testOrdered By: Aly Carlos on 09-23-2024 M. tuberculosis tuberculin stim IFN-g Ql (Bld) 0.40 IU/mL . [facility] RBC Auto (Bld) [#/Vol]Ordere d By: Aly Carlos on 09-23-2024 RBC (Bld) [#/Vol] 4.63 10*6/uL 4.2-5.4 [facility] Serum DNA double strand anti body assay (units/volume)Ordered By: Aly Carlos on 09-23-2024 DNA double strand Ab Qn (S) 1 [IU]/mL 0-9 [facility] Comment on above: Negative <5 Equivoca l 5 - 9 Positive >9 Serum Scl-70 antibody assay (units/volume)Ordered By: Ayl Carlos on 09-23-2024 SCL-70 extractable nuclear Ab Qn (S) TNP [facility] Comment on above: Test not performed SCL-70 extractable nuclear Ab Qn (S) <0.2 AI 0.0-0.9 [facility] Comment on above: Previous reported re sult: TNP AIEdited by: YOANA on 09/28/24:0407 AMENDED REPORT 09/28/24406 ANTISCLER previously reported as: Test not performed Serum black walnut IgE antib evelio assay (units/volume)Ordered By: Aly Carlos on 09-23-2024 Black [place] IgE Qn (S) <0.10 kU/L Class 0 [facility] Serum clam IgE antibody assa y (units/volume)Ordered By: Aly Carlos on 09-23-2024 Clam IgE Qn (S) <0.10 kU/L Class 0 [facility] Serum classic neutrophil cyt oplasmic antibody assay (units/volume)Ordered By: Aly Carlos on 09-23-2024 Neutrophil cytoplasmic Ab.classic Qn (S) <1:20 titer Neg:<1:20 [facility] Serum codfish IgE antibody a ssay (units/volume)Ordered By: Aly Carlos on 09-23-2024 Codfish IgE Qn (S) <0.10 kU/L Class 0 [facility] Serum corn IgE antibody assa y (units/volume)Ordered By: Aly Carlos on 09-23-2024 Ailey IgE Qn (S) <0.10 kU/L Class 0 [facility] Serum cow milk IgE antibody assay (units/volume)Ordered By: Aly Carlos on 09-23-2024 Cow milk IgE Qn (S) <0.10 kU/L Class 0 [facility] Serum creatinine measurement (mass/volume)Ordered By: Aly Carlos on 09-23-2024 Creatinine [Mass/Vol] 0.61 mg/dL Low 0.70-1.20 [facility] Serum egg white IgE antibody assay (units/volume)Ordered By: Aly Carlos on 09-23-2024 Egg white IgE Qn (S) <0.10 kU/L Class 0 [facility] Serum globulin measurement ( mass/volume)Ordered By: lAy Carlos on 09-23-2024 Globulin (S) [Mass/Vol] 3.1 g/dL 2.2-3.9 [facility] Serum glucose measurement (m ass/volume)Ordered By: Aly Carlos on 09-23-2024 Glucose [Mass/Vol] 92 mg/dL 70-99 [facility] Serum or plasma C reactive p rotein measurement (mass/volume)Ordered By: Aly Carlos on 09-23-2024 CRP [Mass/Vol] 26.10 mg/L High 0.0-3.0 [facility] Serum or plasma IgA measurem ent (mass/volume)Ordered By: Aly Carlos on 09-23-2024 IgA [Mass/Vol] 175 mg/dL 87-352 [facility] Serum or plasma IgG measurem ent (mass/volume)Ordered By: Aly Carlos on 09-23-2024 IgG [Mass/Vol] 724 mg/dL 586-1602 [facility] Serum or plasma alanine farooq otransferase (ALT) measurementOrdered By: Aly Carlos on 09-23-2024 ALT [Catalytic activity/Vol] 16 U/L <35 [facility] Serum or plasma albumin binh urement (mass/volume)Ordered By: Aly Carlos on 09-23-2024 Albumin [Mass/Vol] 4.1 g/dL 3.5-5.0 [facility] Serum or plasma albumin/glob ulin mass ratioOrdered By: Aly Carlos on 09-23-2024 Albumin/Globulin [Mass ratio] 1.4 {ratio} 0.9-2.4 [facility] Serum or plasma alkaline valarie sphatase measurementOrdered By: Aly Carlos on 09-23-2024 ALP [Catalytic activity/Vol] 159 U/L High 35-104 [facility] Serum or plasma alpha 1 glob ulin measurement by electrophoresis (mass/volume)Ordered By: Aly Carlos on 09-23-2024 Alpha 1 globulin Elph [Mass/Vol] 0.3 g/dL 0.0-0.4 [facility] Alpha 1 globulin Elph [Mass/Vol] 1.0 g/dL 0.4-1.0 [facility] Serum or plasma beta globuli n measurement by electrophoresis (mass/volume)Ordered By: Aly Carlos on 09-23-2024 Beta globulin Elph [Mass/Vol] 1.0 g/dL 0.7-1.3 [facility] Serum or plasma calcium binh urement (mass/volume)Ordered By: Aly Carlos on 09-23-2024 Calcium [Mass/Vol] 9.2 mg/dL 7.6-11.0 [facility] Serum or plasma gamma globul in measurement by electrophoresis (mass/volume)Ordered By: Aly Carlos on 09-23-2024 Gamma globulin Elph [Mass/Vol] 0.8 g/dL 0.4-1.8 [facility] Serum or plasma hepatitis B virus surface antigen detection by immunoassayOrdered By: Aly Carlos on 09-23-2024 HBV surface Ag IA Ql Negative Negative [facility] Serum or plasma immunoelectr ophoresis interpretation (nominal result)Ordered By: Aly Carlos on 09-23-2024 Interpretation IEP [Interp] Comment . [facility] Comment on above: No monoclonality det ected. Serum or plasma protein binh urement (mass/volume)Ordered By: Aly Carlos on 09-23-2024 Protein [Mass/Vol] 6.3 g/dL 6.0-8.5 [facility] Serum or plasma urea nitroge n measurement (mass/volume)Ordered By: Aly Carlos on 09-23-2024 Urea nitrogen [Mass/Vol] 6 mg/dL 4-19 [facility] Serum peanut IgE antibody as say (units/volume)Ordered By: Aly Carlos on 09-23-2024 Peanut IgE Qn (S) <0.10 kU/L Class 0 [facility] Serum perinuclear neutrophil cytoplasmic antibody titer by immunofluorescenceOrdered By: Aly Carlos on 09-23-2024 Neutrophil cytoplasmic Ab.perinuclear IF (S) [Titer] 1:80 titer High Neg:<1:20 [facility] Comment on above: The presence of posi tive fluorescence exhibiting P-ANCA orC-ANCA patterns alone is not specific for the diagnosis ofWegener's Granulomatosis (WG) or microscopic polyangiitis.Decisions about treatment should not be based solely onANCA IFA results. The International ANCA Group Consensusrecommends follow up testing of positive sera with both AK-3 and MPO-ANCA enzyme immunoassays. As many as 5% serumsamples are positive only by EIA. Ref. AM J Clin Mmnhqs3336;111:507-513. Serum soybean IgE antibody a ssay (units/volume)Ordered By: Aly Carlos on 09-23-2024 Soybean IgE Qn (S) <0.10 kU/L Class 0 [facility] Serum tissue transglutaminas e (tTG) IgA antibody assay (units/volume)Ordered By: Aly Carlos on 09-23-2024 tTG IgA Qn (S) <2 U/mL 0-3 [facility] Comment on above: Negative 0 - 3 Weak Positive 4 - 10 Positive >10 Tissue Transglutaminase (tTG) has been identified as the endomysial antigen. Studies have demonstr- ated that endomysial IgA antibodies have over 99% specificity for gluten sensitive enteropathy. Serum wheat IgE antibody ass ay (units/volume)Ordered By: Aly Carlos on 09-23-2024 Wheat IgE Qn (S) <0.10 kU/L Class 0 [facility] Sodium levelOrdered By: Domi Cooley on 09-23-2024 Sodium [Moles/Vol] 138 mmol/L 133-145 [facility] TSH DL <= 0.005 mIU/L QnOrde red By: Ayl Carlos on 09-23-2024 TSH Qn 1.890 uIU/mL 0.300-4.20 0 [facility] Thyroid Stim Hormone (TSH)on 09-23-2024 TSH 1.890 uIU/mL Normal 0.300-4.20 0 [facility] Comment on above: Performed By: #### L 500.4050, L3100.5440, L300.3900, L503.6150, L501.6710, L3300.1200, L3100.3425, L3200.1100, L501.9520, L5500.0410, L3000.0375, L3410.2400, L3400.8000, L504.2610, L100.0100, L501.9985, L101.9900 #### [facility] Laboratory [facility] [place], [address] Total proteinOrdered By: Mohsen Carlos on 09-23-2024 Protein [Mass/Vol] 6.9 g/dL 5.9-8.4 [facility] White blood cell (WBC) count Ordered By: Aly Carlos on 09-23-2024 WBC (Bld) [#/Vol] 6.9 10*3/uL 4.4-11.0 [facility] CNOVon 09-22-2024 CNOV Office Visit (ORTHWS ) CATHY CAM ([id number]) 1975 F Date Time Provider Department 09/22/24 2:00 PM CLAU ABEBE During your visit today, we recorded the following information about you: Maxine Vieira MA 09/22/2024 2:51 PM Signed Patient presents with: Left Wrist - Post Op AMB ROOMING INTAKE FLOWSHEET DATA Pain Pain Level: 8 Pain Location: Hand-Left Description: (Pulling) Duration Amount of Time: (Post op) Frequency: Intermittent Intervention/Comfort measure: (None) Sutures intact. No redness or drainage. Taking no med's for the pain. Patient states she has been having a rash on the back of her right leg that comes and goes. Has been applying OTC calamine lotion helps. Clau Abebe PA-C 09/22/2024 2:51 PM Signed Clau Abebe PA-C Department of Orthopaedics Orthopaedics [address] [facility] [address] Dept: [phone] Dept September 22, 2024 CHIEF COMPLAINT: Post Op of the Left Wrist. ASSESSMENT: G56.02 Left carpal tunnel syndrome (primary encounter diagnosis) SUMMARY/PLAN: Patient presents 1 week and 4 days status post left carpal tunnel release. The patient tells me that she has not washed the surgical hand since surgery, she is very concerned washing hand may cause bleeding. [place] worried about dust getting into her surgical site. Will remove her sutures today, advised her to start washing the surgical site normally with soap and water. She also has quite a bit of swelling, we did review ice and elevation as well as making a fist and straightening the digits to help with edema control. Exam: Incision site is well-approximated there is no discharge or drainage coming from the surgical site. There is moderate edema of the palm extending up into all of the digits, patient has difficulty forming a loose composite fist secondary to edema in the fingers. Subjective numbness in all the digits. Imaging: Deferred today. Ms. Cathy Cam was advised as to contrast therapies and/or to take analgesics/anti-inflam matories as needed and all contraindications were reviewed. Supporting Information Below: Medications: Current Outpatient Medications Medication Sig albuterol HFA (PROAIR HFA) 90 mcg/actuation inhaler Inhale 2 puffs as instructed every 4 hours as needed. phenytoin ER 300 mg ER capsule Take 1 capsule by mouth two times a day. take in the morning fexofenadine (ALINE) 180 mg tablet Take 1 tablet by mouth once daily. levothyroxine (SYNTHROID) 25 mcg tablet Take 1 tablet by mouth once daily. tiotropium bromide (SPIRIVA RESPIMAT) 2.5 mcg/actuation inhaler Inhale 2 Puffs as instructed once daily. Cholecalciferol, Vitamin D3, 25 mcg (1,000 unit) cap Take 1 capsule by mouth once daily. venlafaxine ER (EFFEXOR XR) 150 mg 24 hr capsule Take 1 capsule by mouth once daily. fluticasone-salmeterol (ADVAIR) 500-50 mcg/dose dsdv Inhale 1 Puff as instructed two times a day. (Patient not taking: Reported on 09/22/2024) benzonatate (TESSALON PERLE) 100 mg capsule Take 1-2 capsules by mouth three times a day as needed for cough. (Patient not taking: Reported on 09/22/2024) etodolac (LODINE) 400 mg tablet Take 1 tablet by mouth two times a day. (Patient not taking: Reported on 09/22/2024) No current facility-administered medications for this visit. Allergies: Quetiapine, Aspirin, Fish Containing Products, Pear, Shellfish Derived, Trazodone, Erythromycin, and Latex This note was partially generated using Zodio voice recognition system, and there may be some incorrect words, spellings, and punctuation that were not noted in checking the note before saving. Clau Abebe PA-C Allergies As of Date: 09/22/2024 Noted Allergy Reaction QUETIAPINE 01/18/2022 14 - Other: See Comments Comments: Seizures ASPIRIN 05/02/2021 14 - Other: See Comments 16 - Unknown FISH CONTAINING PRODUCTS 05/02/2021 16 - Unknown 14 - Other: See Comments PEAR 02/07/2017 4 - Hives SHELLFISH DERIVED 01/10/2022 4 - Hives TRAZODONE 05/02/2021 15 - Contraindication-Medic al Whiteside*14 - Other: See Comments Comments: triggers my seizures ERYTHROMYCIN 07/05/2006 11 - Vomiting Comments: Other reaction(s): Nausea And Vomiting LATEX 07/19/2006 2 - Rash 9 - Itching Date Reviewed: 09/22/2024 Reviewed by: Maxine Vieira MA - Fully Assessed Reason for Visit: Post Op [174] Primary Visit Diagnosis:Left carpal tunnel syndrome [G56.02] Prescriptions as of 09/22/2024 - albuterol HFA (PROAIR HFA) 90 mcg/actuation inhaler Inhale 2 puffs as instructed every 4 hours as needed. - phenytoin ER 300 mg ER capsule Take 1 capsule by mouth two times a day. take in the morning - fexofenadine (ALINE) 180 mg tablet Take 1 tablet by mouth once daily. - fluticasone-salmeterol (ADVAI (more content not included)... Normal [facility] OPERATIVE NOon 09-11-2024 OPERATIVE NO HNO ID: [id number] Author: TINO NICHOLSON MD Service: Orthopaedic Surgery Author Type: Physician Type: Operative Report Filed: 09/11/2024 15:03 Note Text: OPERATIVE/PROCEDURE REPORT LOG ID: [id number] Surgery/Procedure Date: 09/11/2024 Incision/Procedure Start Time: 2:45 PM Incision Close/Procedure End Time: 2:59 PM Surgeon(s)/Procedurali st(s) and Reinsurance Clerk(s): Surgeons and Role: * Tino Nicholson MD - Primary No Additional Staff Procedure(s): OPERATION: Left carpal tunnel release, open. ANESTHESIA: local. PREOPERATIVE DIAGNOSIS: Left carpal tunnel syndrome. POSTOPERATIVE DIAGNOSIS: Left carpal tunnel syndrome. OPERATIVE INDICATIONS: This is a pleasant 49 year old female who had worsening, numbness, and tingling. Her electrodiagnostic showed mild carpal tunnel syndrome. She exhausted conservative management and in the office, we discussed the risks, benefits, alternatives, and potential complications involving carpal tunnel release and he wished to pursue surgical intervention. OPERATIVE FINDINGS: Consistent with postoperative diagnosis. OPERATIVE PROCEDURE: On September 11, 2024, the patient was clearly identified in the preoperative area and marked accordingly on the Left palm by myself. In the preop area, Local anesthetic was provided at the palm and wrist with 1% lidocaine with 1:100,000 epinephrine for total of 12 mL. She was taken to the operative suite and placed in the supine position with an armboard on the Left. All other bony landmarks were appropriately padded in standard fashion. The arm was then sterilely prepped and draped in standard fashion. An appropriate time-out was conducted and all in the room were in agreement, signed consent form was on the chart. A longitudinal incision was made with in line with the third web space from 1 cm distal of the wrist crease to Byrne's cardinal line. I used Laine Rakes to retract the soft tissues. Bipolar electrocautery was used for hemostasis. I bluntly dissected down with Littler scissors to distal edge of the transverse carpal ligament until a flash of fat was noted. I directly divided distal edge of the transverse carpal ligament with a #15 blade. Attention was then focused on the proximal portion and I used Littler scissors to bluntly dissect off the volar surface of the transverse carpal ligament. A carpal tunnel and median nerve protection guide was slid directly under the ligament for dilation and a second time for appropriate positioning, this was passed freely without any resistance. Subsequently, I selected a mini meniscotome Long blade and slid this in the protective guide, completely dividing the transverse carpal ligament. Laine rakes were used to view up the wound to visualize for complete release and a [place] elevator was used to palpate for complete release. hemostasis was observed. The wound was copiously irrigated with normal saline and I closed with 3-0 nylons in horizontal mattress fashion for a total of 3. Xeroform gauze, sterile 4 x 4 gauze, Webril padding, and a Bias roll was used for final bandage. There were no complications during the procedure. The patient was safely transferred to the Postanesthetic Care Unit in stable condition. I performed the entire procedure. SIGNATURE: Tino Nicholson MD PATIENT NAME: aCthy Cam DATE: September 11, 2024 TIME: 3:03 PM PAGER/CONTACT #: Marnie [facility] Kalen 08-15-2024 SETH Telephone (INTMWS) CATHY CAM ([id number]) 1975 F Date Time Provider Department 08/15/24 JORGE MADDEN INTJenniferWS During your visit today, we recorded the following information about you: Michelle Alvarez LPN 08/15/2024 1:26 PM Signed Patient calling she saw LIEUTENANT/DEPUTY for [place], saw TURNER OFF can not remember her name. She was told her pap test was positive for HPV. She did not understand this, this nurse advised patient to call that office back, tell them she did not understand so it could be explained to her. Jorge Madden APRN.CNP 08/15/2024 3:10 PM Signed Noted and agree, she should follow back up with relationship assoc for her questions. Allergies As of Date: 08/15/2024 Noted Allergy Reaction QUETIAPINE 01/18/2022 14 - Other: See Comments Comments: Seizures ASPIRIN 05/02/2021 14 - Other: See Comments 16 - Unknown FISH CONTAINING PRODUCTS 05/02/2021 16 - Unknown 14 - Other: See Comments PEAR 02/07/2017 4 - Hives SHELLFISH DERIVED 01/10/2022 4 - Hives TRAZODONE 05/02/2021 15 - Contraindication-Medic al Whiteside*14 - Other: See Comments Comments: triggers my seizures ERYTHROMYCIN 07/05/2006 11 - Vomiting Comments: Other reaction(s): Nausea And Vomiting LATEX 07/19/2006 2 - Rash 9 - Itching Date Reviewed: 07/28/2024 Reviewed by: Jorge Madden APRN.CNP - Fully Assessed Reason for Visit: Patient Update [1234] Prescriptions as of 08/15/2024 - albuterol HFA (PROAIR HFA) 90 mcg/actuation inhaler Inhale 2 puffs as instructed every 4 hours as needed. - phenytoin ER 300 mg ER capsule Take 1 capsule by mouth two times a day. take in the morning - fexofenadine (ALINE) 180 mg tablet Take 1 tablet by mouth once daily. - fluticasone-salmeterol (ADVAIR) 500-50 mcg/dose dsdv Inhale 1 Puff as instructed two times a day. - levothyroxine (SYNTHROID) 25 mcg tablet Take 1 tablet by mouth once daily. - tiotropium bromide (SPIRIVA RESPIMAT) 2.5 mcg/actuation inhaler Inhale 2 Puffs as instructed once daily. - Cholecalciferol, Vitamin D3, 25 mcg (1,000 unit) cap Take 1 capsule by mouth once daily. - benzonatate (TESSALON PERLE) 100 mg capsule Take 1-2 capsules by mouth three times a day as needed for cough. - etodolac (LODINE) 400 mg tablet Take 1 tablet by mouth two times a day. - venlafaxine ER (EFFEXOR XR) 150 mg 24 hr capsule Take 1 capsule by mouth once daily. Meds Comments as of 04/12/2007: All medications have been reviewed April 12, 2007 [employer]da [employer] Problem List As Of Date 08/15/2024 Noted Resolved SUPRV HIGH-RISK PREG NOS [O09.90] 07/19/2006 07/25/2006 Personal history of pre-term labor [Z87.51] 07/25/2006 05/24/2022 Supervision of other high-risk (V23.89*07/2505/24/2022 Depressive disorder [F32.A] 02/25/2007 Anxiety [F41.9] 02/25/2007 History of alcohol abuse [F10.11] 02/25/2007 Obesity, Class III, BMI >= 40 [E66.813] 05/24/2022 Major depression, recurrent (HCC) [F33.9] 08/25/2021 Severe major depression, single episode (HCC) [*01/18/2022 05/24/2022 Hypothyroidism [E03.9] 05/24/2022 Seizure disorder (HCC) [G40.909] 05/24/2022 Colitis [K52.9] 06/21/2022 Obesity, Class II, BMI 35-39.9 [E66.812] 10/19/2023 Encounter Status:Closed by JORGE MADDEN on 08/15/24 [facility] Kalen 08-14-2024 CNPN Telephone (JOSE FRANCISCO) YANIRACATHY Atkins ([id number]) 1975 F Date Time Provider Department 08/14/24 TINO NICHOLSON During your visit today, we recorded the following information about you: Maxine Vieira MA 08/14/2024 10:58 AM Signed Patient calling and states she would like to reschedule her Left CTR under local on 09/11/24. Maxine Vieira MA 08/14/2024 11:43 AM Signed Surgical request completed. Post op appointments scheduled and mailed to the patients. Kourtney Todd MA 08/15/2024 8:27 AM Signed Surgery has been scheduled as requested. Allergies As of Date: 08/14/2024 Noted Allergy Reaction QUETIAPINE 01/18/2022 14 - Other: See Comments Comments: Seizures ASPIRIN 05/02/2021 14 - Other: See Comments 16 - Unknown FISH CONTAINING PRODUCTS 05/02/2021 16 - Unknown 14 - Other: See Comments PEAR 02/07/2017 4 - Hives SHELLFISH DERIVED 01/10/2022 4 - Hives TRAZODONE 05/02/2021 15 - Contraindication-Medic al Whiteside*14 - Other: See Comments Comments: triggers my seizures ERYTHROMYCIN 07/05/2006 11 - Vomiting Comments: Other reaction(s): Nausea And Vomiting LATEX 07/19/2006 2 - Rash 9 - Itching Date Reviewed: 07/28/2024 Reviewed by: Jorge Madden APRN.PLANT OPERATIONS MANAGER - Fully Assessed Reason for Visit: Schedule Surgery [1330] Primary Visit Diagnosis:Left carpal tunnel syndrome [G56.02] Order(s):SURGICAL REQUEST - ELECTIVE (10/2019) [[id number]] Order #: [id number]: 1 Prescriptions as of 08/15/2024 - albuterol HFA (PROAIR HFA) 90 mcg/actuation inhaler Inhale 2 puffs as instructed every 4 hours as needed. - phenytoin ER 300 mg ER capsule Take 1 capsule by mouth two times a day. take in the morning - fexofenadine (ALINE) 180 mg tablet Take 1 tablet by mouth once daily. - fluticasone-salmeterol (ADVAIR) 500-50 mcg/dose dsdv Inhale 1 Puff as instructed two times a day. - levothyroxine (SYNTHROID) 25 mcg tablet Take 1 tablet by mouth once daily. - tiotropium bromide (SPIRIVA RESPIMAT) 2.5 mcg/actuation inhaler Inhale 2 Puffs as instructed once daily. - Cholecalciferol, Vitamin D3, 25 mcg (1,000 unit) cap Take 1 capsule by mouth once daily. - benzonatate (TESSALON PERLE) 100 mg capsule Take 1-2 capsules by mouth three times a day as needed for cough. - etodolac (LODINE) 400 mg tablet Take 1 tablet by mouth two times a day. - venlafaxine ER (EFFEXOR XR) 150 mg 24 hr capsule Take 1 capsule by mouth once daily. Meds Comments as of 04/12/2007: All medications have been reviewed April 12, 2007 Lynda Hardin [employer] Problem List As Of Date 08/14/2024 Noted Resolved SUPRV HIGH-RISK PREG NOS [O09.90] 07/19/2006 07/25/2006 Personal history of pre-term labor [Z87.51] 07/25/2006 05/24/2022 Supervision of other high-risk (V23.89*07/2505/24/2022 Depressive disorder [F32.A] 02/25/2007 Anxiety [F41.9] 02/25/2007 History of alcohol abuse [F10.11] 02/25/2007 Obesity, Class III, BMI >= 40 [E66.813] 05/24/2022 Major depression, recurrent (HCC) [F33.9] 08/25/2021 Severe major depression, single episode (HCC) [*01/18/2022 05/24/2022 Hypothyroidism [E03.9] 05/24/2022 Seizure disorder (HCC) [G40.909] 05/24/2022 Colitis [K52.9] 06/21/2022 Obesity, Class II, BMI 35-39.9 [E66.812] 10/19/2023 Letter Text Encounter Status:Closed by KOURTNEY TODD on 08/15/24 Normal [facility] PAP IG HPV APTIMA 16/18,45on 07-31-2024 ADEQ Comment Normal . [facility] Comment on above: Order Comment: Speci men Comment: [id number] Comment: No. of containers..01 ThinPrep Vial Result Comment: Sati sfactory for evaluation. Endocervical and/or squamous metaplastic cells (endocervical component) are present. Performed By: #### L 500.4050, L3100.5440, L300.3900, L503.6150, L501.6710, L3300.1200, L3100.3425, L3200.1100, L501.9520, L5500.0410, L3000.0375, L3410.2400, L3400.8000, L504.2610, L100.0100, L501.9985, L101.9900 #### [facility] [address] [place], [place], [id number] COMM . Normal . [facility] Comment on above: Order Comment: Speci men Comment: [id number] Comment: No. of containers..01 ThinPrep Vial Performed By: #### L 500.4050, L3100.5440, L300.3900, L503.6150, L501.6710, L3300.1200, L3100.3425, L3200.1100, L501.9520, L5500.0410, L3000.0375, L3410.2400, L3400.8000, L504.2610, L100.0100, L501.9985, L101.9900 #### [facility] [address] [place], [address] COMMENT Comment Normal . [facility] Comment on above: Order Comment: Speci men Comment: [id number] Comment: No. of containers..01 ThinPrep Vial Result Comment: This liquid based ThinPrep(R) pap test was screened with the use of an image guided system. Performed By: #### L 500.4050, L3100.5440, L300.3900, L503.6150, L501.6710, L3300.1200, L3100.3425, L3200.1100, L501.9520, L5500.0410, L3000.0375, L3410.2400, L3400.8000, L504.2610, L100.0100, L501.9985, L101.9900 #### [facility] [address] [place], [address] DIAG Comment Normal . [facility] Comment on above: Order Comment: Speci men Comment: [id number] Comment: No. of containers..01 ThinPrep Vial Result Comment: NEGA TIVE FOR INTRAEPITHELIAL LESION OR MALIGNANCY. Performed By: #### L 500.4050, L3100.5440, L300.3900, L503.6150, L501.6710, L3300.1200, L3100.3425, L3200.1100, L501.9520, L5500.0410, L3000.0375, L3410.2400, L3400.8000, L504.2610, L100.0100, L501.9985, L101.9900 #### [facility] [address] [place], [address] HPV APTIMA, HR Positive Abnormal Negative [facility] Comment on above: Order Comment: Speci men Comment: [id number] Comment: No. of containers..01 ThinPrep Vial Result Comment: This nucleic acid amplification test detects fourteen high- risk HPV types (16,18,31,33,35,39,45,51,52,56,58,59,66,68) without differentiation. Performed By: #### L 500.4050, L3100.5440, L300.3900, L503.6150, L501.6710, L3300.1200, L3100.3425, L3200.1100, L501.9520, L5500.0410, L3000.0375, L3410.2400, L3400.8000, L504.2610, L100.0100, L501.9985, L101.9900 #### [facility] [address] [place], [place], [id number] (197) HPV Luann 18,45 Negative Normal Negative [facility] Comment on above: Order Comment: Speci men Comment: [id number] Comment: No. of containers..01 ThinPrep Vial Result Comment: Perf ormed at: - [address] [id number] Cooling Tower Technician: Emi Nelson MD, Phone: [phone] Performed at: = - [facility] [id number] Cooling Tower Technician: Emi Nelson MD, Phone: [phone] Performed By: #### L 500.4050, L3100.5440, L300.3900, L503.6150, L501.6710, L3300.1200, L3100.3425, L3200.1100, L501.9520, L5500.0410, L3000.0375, L3410.2400, L3400.8000, L504.2610, L100.0100, L501.9985, L101.9900 #### [facility] [address] [place], [address] HPV Luann Rfx Comment Normal . [facility] Comment on above: Order Comment: Speci men Comment: [id number] Comment: No. of containers..01 ThinPrep Vial Result Comment: Hamzah franco, see HPV Genotype results. Performed By: #### L 500.4050, L3100.5440, L300.3900, L503.6150, L501.6710, L3300.1200, L3100.3425, L3200.1100, L501.9520, L5500.0410, L3000.0375, L3410.2400, L3400.8000, L504.2610, L100.0100, L501.9985, L101.9900 #### [facility] [address] [place], [address] HPV Genotype 16 Negative Normal Negative [facility] Comment on above: Order Comment: Speci men Comment: [id number] Comment: No. of containers..01 ThinPrep Vial Performed By: #### L 500.4050, L3100.5440, L300.3900, L503.6150, L501.6710, L3300.1200, L3100.3425, L3200.1100, L501.9520, L5500.0410, L3000.0375, L3410.2400, L3400.8000, L504.2610, L100.0100, L501.9985, L101.9900 #### [facility] [address] [place], [address] PAPSMR Comment Normal . [facility] Comment on above: Order Comment: Speci men Comment: [id number] Comment: No. of containers..01 ThinPrep Vial Result Comment: The Pap smear is a screening test designed to aid in the detection of premalignant and malignant conditions of the uterine cervix. It is not a diagnostic procedure and should not be used as the sole means of detecting cervical cancer. Both false-positive and false-negative reports do occur. Performed By: #### L 500.4050, L3100.5440, L300.3900, L503.6150, L501.6710, L3300.1200, L3100.3425, L3200.1100, L501.9520, L5500.0410, L3000.0375, L3410.2400, L3400.8000, L504.2610, L100.0100, L501.9985, L101.9900 #### [facility] [address] [place], [place], [address] PERFORM Comment Normal . [facility] Comment on above: Order Comment: Speci men Comment: [id number] Comment: No. of containers..01 ThinPrep Vial Result Comment: Ashvin Nelson, Platform Material Handler Manager (ASCP) Performed By: #### L 500.4050, L3100.5440, L300.3900, L503.6150, L501.6710, L3300.1200, L3100.3425, L3200.1100, L501.9520, L5500.0410, L3000.0375, L3410.2400, L3400.8000, L504.2610, L100.0100, L501.9985, L101.9900 #### [facility] [address] [place], [place], [id number] CNPNon 07-30-2024 CNPN Telephone (INTMWS) CATHY CAM ([id number]) 1975 F Date Time Provider Department 07/30/24 JORGE MADDEN INTMWS During your visit today, we recorded the following information about you: Jennifer Amezquita, RN 07/30/2024 10:31 AM Signed [facility]- reports pt wants her US results, done recently, at [facility], faxed to Jorge. Devin Funes's office would need to have patient sign a release with Jorge's office, and the office would need to fax the release along with the request for US results, to [facility] at fax # [phone]. Asked [facility] if they could have patient sign the release and fax the results to Jorge. [facility] state they can, but they thought maybe Jorge's office already had the release, and they would have to have patient return to their office to sign the release. Teri Llanos LPN 07/30/2024 12:46 PM Signed Report printed from [employer]. No need for signed release. On PCP desk for review. Jorge Madden APRN.CNP 07/30/2024 3:03 PM Signed Okay noted, reviewed it, she should follow up with relationship assoc. Allergies As of Date: 07/30/2024 Noted Allergy Reaction QUETIAPINE 01/18/2022 14 - Other: See Comments Comments: Seizures ASPIRIN 05/02/2021 14 - Other: See Comments 16 - Unknown FISH CONTAINING PRODUCTS 05/02/2021 16 - Unknown 14 - Other: See Comments PEAR 02/07/2017 4 - Hives SHELLFISH DERIVED 01/10/2022 4 - Hives TRAZODONE 05/02/2021 15 - Contraindication-Medic al [place]*14 - Other: See Comments Comments: triggers my seizures ERYTHROMYCIN 07/05/2006 11 - Vomiting Comments: Other reaction(s): Nausea And Vomiting LATEX 07/19/2006 2 - Rash 9 - Itching Date Reviewed: 07/28/2024 Reviewed by: Jorge Madden APRN.PLANT OPERATIONS MANAGER - Fully Assessed Reason for Visit: US results [Other] Prescriptions as of 07/30/2024 - albuterol HFA (PROAIR HFA) 90 mcg/actuation inhaler Inhale 2 puffs as instructed every 4 hours as needed. - phenytoin ER 300 mg ER capsule Take 1 capsule by mouth two times a day. take in the morning - fexofenadine (ALINE) 180 mg tablet Take 1 tablet by mouth once daily. - fluticasone-salmeterol (ADVAIR) 500-50 mcg/dose dsdv Inhale 1 Puff as instructed two times a day. - levothyroxine (SYNTHROID) 25 mcg tablet Take 1 tablet by mouth once daily. - tiotropium bromide (SPIRIVA RESPIMAT) 2.5 mcg/actuation inhaler Inhale 2 Puffs as instructed once daily. - Cholecalciferol, Vitamin D3, 25 mcg (1,000 unit) cap Take 1 capsule by mouth once daily. - benzonatate (TESSALON PERLE) 100 mg capsule Take 1-2 capsules by mouth three times a day as needed for cough. - etodolac (LODINE) 400 mg tablet Take 1 tablet by mouth two times a day. - venlafaxine ER (EFFEXOR XR) 150 mg 24 hr capsule Take 1 capsule by mouth once daily. Meds Comments as of 04/12/2007: All medications have been reviewed April 12, 2007 Lynda Hardin [employer] Problem List As Of Date 07/30/2024 Noted Resolved SUPRV HIGH-RISK PREG NOS [O09.90] 07/19/2006 07/25/2006 Personal history of pre-term labor [Z87.51] 07/25/2006 05/24/2022 Supervision of other high-risk (V23.89*07/2505/24/2022 Depressive disorder [F32.A] 02/25/2007 Anxiety [F41.9] 02/25/2007 History of alcohol abuse [F10.11] 02/25/2007 Obesity, Class III, BMI >= 40 [E66.813] 05/24/2022 Major depression, recurrent (HCC) [F33.9] 08/25/2021 Severe major depression, single episode (HCC) [*01/18/2022 05/24/2022 Hypothyroidism [E03.9] 05/24/2022 Seizure disorder (HCC) [G40.909] 05/24/2022 Colitis [K52.9] 06/21/2022 Obesity, Class II, BMI 35-39.9 [E66.812] 10/19/2023 Encounter Status:Closed by JORGE MADDEN on 07/30/24 Normal [facility] Genital Culture Comprehensiv dillon 07-29-2024 VAC Reason for Exam: pelvic pain Normal vaginal octaviano isolated. No yeast, Gardnerella, Neisseria or beta-hemolytic Streptococcus isolated. Normal [facility] Comment on above: Performed By: #### L 500.4050, L3100.5440, L300.3900, L503.6150, L501.6710, L3300.1200, L3100.3425, L3200.1100, L501.9520, L5500.0410, L3000.0375, L3410.2400, L3400.8000, L504.2610, L100.0100, L501.9985, L101.9900 #### [facility] [address] [place], [address] Pelvic w/ Transvaginalon Pelvic w/ Transvaginal [facility] [address] [place] [address] Pelvic w/ Transvaginal MR#: [id number] Acct: [id number] Name: CATHY CAM Rep #: [id number] : 1975 F 49 From: Melchor Walton MD PCP: KISHAN Katz Status: REG CLI Study: Pelvic w/ Transvaginal Date of Exam: 07/29/24 Exam# [id number] Ordering Dr: Princess Blake NP TURNER OFF -C PROCEDURE: PELVIC W/ TRANSVAGINAL, 07/29/2024 REASON FOR EXAM: ABD PAIN, BLEEDING WITH IUD TECHNIQUE: Grayscale and color doppler transabdominal and transvaginal pelvic ultrasound was performed. COMPARISON: 11/24/2022 FINDINGS: Exam is slightly limited by shadowing bowel gas and probably by uterine positioning. Uterus: 11.1 x 5.0 x 5.0 cm, Anteverted. Unremarkable echotexture. Endometrium: Poorly visualized, measured at 3 mm on limited transabdominal imaging. IUD is poorly visualized but appears within the endometrial cavity. Slightly low positioning questioned by staffing and scheduling coordinator on real-time scanning, difficult to confirm on still images obtained. Cervix: Nabothian cysts, some of which demonstrate low-level internal echoes suggesting internal hemorrhagic/proteinace ous components. Right ovary: 3.4 x 2.52.4 cm. Visualized only by limited transabdominal approach. Grossly unremarkable limited transabdominal appearance. Left ovary: 2.3 x 1.9 x 1.6 cm. Visualized only by limited transabdominal approach. Grossly unremarkable limited transabdominal appearance. Free fluid: None visualized. Other: Estimated bladder volume 340 mL. US/Pelvic w/ Transvaginal IMPRESSION: 1. Limited exam. IUD is poorly visualized but appears within the endometrial cavity. Slightly low positioning questioned by staffing and scheduling coordinator on real-time scanning, difficult to confirm on still images obtained. Correlate with exam and consider a repeat exam with transabdominal and transvaginal cine clips as indicated. 2. Additional description as above. Reading Location: [id number] CC: KISHAN Blake; KISHAN Madden Playground Monitor: Signed Normal [facility] CNOVon 07-28-2024 CNOV Office Visit (INTMWS ) CATHY CAM ([id number]) 1975 F Date Time Provider Department 07/28/24 9:20 AM JORGE MADDEN INTJenniferWS During your visit today, we recorded the following information about you: Pulse Blood pressure Weight Last Period 116/minute 110/80 92 kg 07/07/24 Jorge Madden APRN.PLANT OPERATIONS MANAGER 07/28/2024 9:57 AM Signed SUBJECTIVE Cathy Cam is a 49 year old female here today for a check up on her medical problems. Chief Complaint Patient presents with: Recheck HPI Cathy Cam is a 49 year old female.She is an established patient. She presents today for follow up. Accompanied by her significant other. She notes that lights are still bothering her, seen with the eye doctor and got new glasses. Seeing neuro in September. No other seizure activity noted. Seeing the counseling center for mental health care. Anxiety bad right now. Follow up with relationship assoc, concerned that IUD might of fallen out. Still smoking, breathing is okay. MAI and no CPAP use. Getting frequent and painful boils. Getting these in the arm pits and groin. Possible HS? Taking thyroid medication on an empty stomach. Ears feel full right now. Has not been taking her antihistamine. Her medications were reviewed today and her list is now up to date. Medications Current Outpatient Medications Medication Sig fluticasone-salmeterol (ADVAIR) 500-50 mcg/dose dsdv Inhale 1 Puff as instructed two times a day. levothyroxine (SYNTHROID) 25 mcg tablet Take 1 tablet by mouth once daily. tiotropium bromide (SPIRIVA RESPIMAT) 2.5 mcg/actuation inhaler Inhale 2 Puffs as instructed once daily. Cholecalciferol, Vitamin D3, 25 mcg (1,000 unit) cap Take 1 capsule by mouth once daily. benzonatate (TESSALON PERLE) 100 mg capsule Take 1-2 capsules by mouth three times a day as needed for cough. etodolac (LODINE) 400 mg tablet Take 1 tablet by mouth two times a day. venlafaxine ER (EFFEXOR XR) 150 mg 24 hr capsule Take 1 capsule by mouth once daily. albuterol HFA (PROAIR HFA) 90 mcg/actuation inhaler Inhale 2 puffs as instructed every 4 hours as needed. phenytoin ER 300 mg ER capsule Take 1 capsule by mouth two times a day. take in the morning fexofenadine (ALINE) 180 mg tablet Take 1 tablet by mouth once daily. No current facility-administered medications for this visit. ALLERGIES Allergen Reactions Quetiapine Other: See Comments Seizures Aspirin Other: See Comments, Unknown Fish Containing Pro* Unknown, Other: See Comments Pear Hives Shellfish Derived Hives Trazodone Contraindication-Medic al Surgical, Other: See Comments triggers my seizures Erythromycin Vomiting Other reaction(s): Nausea And Vomiting Latex Rash, Itching ACTIVE PROBLEM LIST Obesity, Class II, Bmi 35-39.9 - 10/19/2023 Colitis - 06/21/2022 Obesity, Class III, BMI >= 40 - 05/24/2022 Hypothyroidism - 05/24/2022 Seizure Disorder (Hcc) - 05/24/2022 Major Depression, Recurrent - 08/25/2021 Depressive Disorder - 02/25/2007 Anxiety - 02/25/2007 History of Alcohol Abuse - 02/25/2007 Social History Tobacco Use Smoking status: Every Day Current packs/day: 0.50 Average packs/day: 0.5 packs/day for 18.0 years (9.0 ttl pk-yrs) Types: Cigarettes Smokeless tobacco: Never Vaping Use Vaping status: Never Used Substance Use Topics Alcohol use: Yes Alcohol/week: 3.0 standard drinks of alcohol Types: 3 Cans of Beer (12oz) per week Drug use: No Review of Systems Constitutional: Negative. Respiratory: Negative. Cardiovascular: Negative. OBJECTIVE BP 110/80 Pulse 116 Wt 202 lb 13.2 oz (92.0kg) SpO2 96% LMP 07/07/2024 Physical Exam Vitals and nursing note reviewed. Constitutional: General: She is awake. She is not in acute distress. Appearance: Normal appearance. She is well-developed and well-groomed. She is not ill-appearing, toxic-appearing or diaphoretic. HENT: Head: Normocephalic. Right Ear: External ear normal. Left Ear: External ear normal. Nose: Nose normal. Eyes: General: Vision grossly intact. Conjunctiva/sclera: Conjunctivae normal. Pupils: Pupils are equal, round, and reactive to light. Neck: Vascular: No JVD. Trachea: Trachea normal. Cardiovascular: Rate and Rhythm: Normal rate and regular rhythm. Pulses: Normal pulses. Heart sounds: Normal heart sounds. No murmur heard. Pulmonary: Effort: Pulmonary effort is normal. No accessory muscle usage, prolonged expiration or respiratory distress. Breath sounds: Normal breath sounds. Musculoskeletal: Cervical back: Neck supple. Skin: General: Skin is warm and dry. Capillary Refill: Capillary refill takes less than 2 seconds. Neurological: General: No focal deficit present. Mental Status: She is alert and oriented to person, place, and time. Mental status is at baseline. Psychiatric: Attention and Perception: Attention and perception (more content not included)... Normal [facility] Cervical or vaginal specimen microscopic examination by liquid based cytology (reportOrdered By: Princess Blake on 07-28-2024 Cytology report Cyto stain.thin prep Doc (Cvx/Vag) Comment . [facility] Comment on above: Criteria met, see HP V Genotype results. Cervical or vagninal specime n microscopic examination by cytology stain (reported asOrdered By: Princess Blake on 07-28-2024 Cytology report Cyto stain Doc (Cvx/Vag) Comment . [facility] Comment on above: The Pap smear is a s creening test designed to aid in thedetection of premalignant and malignant conditions of theuterine cervix. It is not a diagnostic procedure andshould not be used as the sole means of detecting cervicalcancer. Both false-positive and false-negative reports dooccur. Cervical specimen Aptima HPV assayOrdered By: Princess Blaek on 07-28-2024 HPV E6+E7 mRNA FLOR+probe Ql (Cvx) Negative Negative [facility] Comment on above: Performed at: WB - [facility] [address] [id number] Director: Emi Nelson MD, Phone: [phone] at: =G - [facility] [address] [id number] Director: Emi Nelson MD, Phone: [phone] Cervical specimen human amador lloma virus (HPV) type 16 DNA detection by probe with sigOrdered By: Princess Blake on 07-28-2024 HPV 16 DNA Probe+sig amp Ql (Cvx) Negative Negative [facility] Detection in cervical specim en of any of human papilloma virus (HPV) 16, 18, 31, 33,Ordered By: Princess Blake on 07-28-2024 HPV 16+18+31+33+35+39+45+51+5 2+56+58+59+66+68 DNA Probe+sig amp Ql (Cvx) Positive High Negative [facility] Comment on above: This nucleic acid am plification test detects fourteen high-risk HPV types (16,18,31,33,35,39,45,51,52,56,58,59,66,68)without differentiation. Genital cultureOrdered By: Jennifer Blake on 07-28-2024 Source specific culture Neisseria or beta-hemolytic Streptococcus isolated. [facility] Gram Stainon 07-28-2024 GS Reason for Exam: pelvic pain Gram Stain 2+ Gram positive rods 1+ Gram variable rc 2+ Gram positive cocci No Gram negative diplococci Score =3 Interpretation: 0-3 Normal, 4-6 Intermediate, 7-10 Positive BV Normal [facility] Comment on above: Performed By: #### L 500.4050, L3100.5440, L300.3900, L503.6150, L501.6710, L3300.1200, L3100.3425, L3200.1100, L501.9520, L5500.0410, L3000.0375, L3410.2400, L3400.8000, L504.2610, L100.0100, L501.9985, L101.9900 #### [facility] [address] [place], [address] Gram stainOrdered By: Princess Blake on 07-28-2024 Microscopic observation Gram stain Nom (Unsp spec) [facility] Laboratory - CytologyOrdered By: Princess Blake on 07-28-2024 Platform Material Handler Manager Cyto stain Nom (Cvx/Vag) [ID] Comment . [facility] Comment on above: Sherrie Bueno ologist (ASCP) Laboratory - Miscellaneous t estsOrdered By: Princess Blake on 07-28-2024 Service comment (Unsp spec) [Interp] . . [facility] No Panel InformationOrdered By: Princess Blake on 07-28-2024 Pap Smear Specimen Adequacy Comment . [facility] Comment on above: Satisfactory for mojgan luation. Endocervical and/or squamous metaplasticcells (endocervical component) are present. Manager Film Office Visit Reporton 07-28-2024 Manager Film Office Visit Report [facility] [address], [address] [place] [address] OFFICE VISIT Date of Service: 07/28/24 MR#: [id number] Acct: [id number] Name: CATHY CAM Rep #: [id number] : 1975 Provider: KISHAN burton Age/Sex: 49/F Location: [facility] Status: Signed Intake Vital Signs 01/02/23 13:10 07/28/24 11:18 Height 5 ft 5 ft Weight: 202 lb 8 oz BMI 39.5 BP 112/74 Intake Visit Reasons: vaginal odor x 1 month, bleeding and pain with IUD Port Crane Operator Required: No Is patient in pain?: No Allergies quetiapine Allergy (Severe, Verified 07/28/24 11:23) seizures aspirin Allergy (Verified 07/28/24 11:23) Unknown latex Allergy (Verified 07/28/24 11:23) Itching pear (Pear) Allergy (Verified 07/28/24 11:23) Hives Penicillins Allergy (Verified 07/28/24 11:23) Hives shellfish derived Allergy (Verified 07/28/24 11:23) Hives erythromycin base Adverse Reaction (Intermediate, Verified 07/28/24 11:23) vomiting trazodone Adverse Reaction (Verified 07/28/24 11:23) seizures Medications ???Medication ???Instructions ???Recorded ???Confirmed ???Type cholecalciferol (vitamin D3) 25 25 mcg PO DAILY #10 caps 08/28/22 07/28/24 Rx mcg (1,000 unit) capsule levothyroxine 25 mcg tablet 25 mcg PO DAILY #10 tabs 08/28/22 07/28/24 Rx phenytoin sodium extended 100 mg 200 mg (2 x 100 mg) PO BREAKFAST 0 08/28/22 07/28/24 Rx capsule #10 caps phenytoin sodium extended 100 mg 300 mg (3 x 100 mg) PO QHS #10 cap s 08/28/22 07/28/24 Rx capsule albuterol sulfate 90 mcg/actuation 1 - 2 puff inhalation Q4H PRN AK N 09/28/22 07/28/24 Rx aerosol inhaler (Ventolin HFA) Wheezing ##1 venlafaxine 75 mg capsule,extended 150 mg PO DAILY 11/06/22 5 History release 24 hr Is last menstrual period known: Yes Last Menstrual Period: 06/30/24 Post menopausal: No Patient : No : No [facility] Kidney disease Hypothyroidism Seizures Anxiety Hyperlipidemia Depression Surgical History S/P tubal ligation S/P Family History Grandmother Lung cancer Ovarian cancer Diabetes Grandfather Lung cancer Prostate cancer Diabetes Social History Smoking Status: Heavy Smoker (>10/day) alcohol intake: former year quit: 2021 substance use type: does not use caffeine: Yes what type of physical activity do you participate in: none seatbelt use: always do you feel safe at home: Yes additional social history: Single HPI vaginal odor x 1 month, bleeding and pain with IUD Details: CATHY CAM is a 49 year old who presents for pelvic pain, off and on bleeding X 2 months. She had IUD placed 10/2022 for adenomyosis, fibroids, menorrhagia. States wasn't having bleeding until 2 months ago. Denies STD concerns. Has also had tubal ligation. Female Reproductive History Last Menstrual Period: 06/30/24 History 7 Elective abortions Hx Para 4 Spontaneous abortions 3 Hx # Term Pregnancies Ectopic pregnancies Hx # Pregnancies Multiple births # of living children 2 Past Pregnancies Del. Date Name GA/Weeks Outcome Route Bth Weight [facility] Pauline Unknown Dianne Unknown Ray (stillborn) Unknown Kaitlyn (stillborn) ROS Const Constitutional: Reports system reviewed and no additional complaints, except as documented Eyes Eyes: Reports system reviewed and no additional complaints, except as documented GI GI: Denies abdominal pain or change in bowel habits : Reports as per HPI Exam Const General: cooperative and no acute distress Orientation: oriented x3 General: bladder normal to palpation External Female Exam: normal external appearance and normal appearance of the urethra Urethra: normal appearance of the urethra Speculum Exam - Vagina: normal appearance of the vagina, normal vaginal discharge, no lesions and nontender Speculum Exam - Cervix: normal appearance of the cervix (iud strings 3cm from os) Bimanual Exam- Vagina Uterus: normal bimanual exam, uterine size normal, bladder normal to palpation, uterine shape normal, uterine mobility normal and non-tender Bimanual Exam- Adnexa, other: normal adnexae, no masses and non-tender Coding Level of Care Code Off vis,est,level 3 Diagnoses Pelvic pain R10.2 IUD check up Z30.431 Assessment and Plan Assessment and Plan (1) Pelvic pain: Status: Acute (2) IUD check up: Plan comp vaginal culture-call positive thin prep pap She (more content not included)... Normal [facility] CBC W Auto Differential pane l (Bld)on 06-02-2024 Basophils (Bld) [#/Vol] 10*3/uL Normal <0.11 [facility] Comment on above: Order Comment: Speci men Type: BLOOD SPECIMENOrdering Facility: [facility] Address: [address] [place] [address] Performed By: #### 5 7021-8 ####[facility] LABCLIA [id number] [address] [place] [address] [place] Basophils/100 WBC (Bld) 0.3 % Normal [facility] Comment on above: Order Comment: Speci men Type: BLOOD SPECIMENOrdering Facility: [facility] Address: [address] [place] [address] Performed By: #### 5 7021-8 ####[facility] LABCLIA [id number] [place] [address] [place] Differential cell count method Nom (Bld) Auto Normal [facility] Comment on above: Order Comment: Speci men Type: BLOOD SPECIMENOrdering Facility: [facility] Address: [address] [place] [address] Performed By: #### 5 7021-8 ####[facility] LABCLIA [id number] [place] [address] [place] Eosinophils (Bld) [#/Vol] 10*3/uL Normal <0.46 [facility] Comment on above: Order Comment: Speci men Type: BLOOD SPECIMENOrdering Facility: [facility] Address: [address] [place] [address] Performed By: #### 5 7021-8 ####[facility] LABCLIA [id number] [place] [id number] [place] Eosinophils/100 WBC (Bld) 0.0 % Normal [facility] Comment on above: Order Comment: Speci men Type: BLOOD SPECIMENOrdering Facility: [facility] Address: [address] [place] [address] Performed By: #### 5 7021-8 ####[facility] LABCLIA [id number] [place] [address] [place] Erythrocyte distribution width (RBC) [Ratio] 13.1 % Normal 11.5-15.0 [facility] Comment on above: Order Comment: Speci men Type: BLOOD SPECIMENOrdering Facility: [facility] Address: [address] [place] [address] Performed By: #### 5 7021-8 ####[facility] LABIA [id number] [place] [address] [place] Hematocrit (Bld) [Volume fraction] 41.6 % Normal 36.0-46.0 [facility] Comment on above: Order Comment: Speci men Type: BLOOD SPECIMENOrdering Facility: [facility] Address: [address] [place] [address] Performed By: #### 5 7021-8 ####[facility] LABIA [id number] [place] [address] [place] Hemoglobin (Bld) [Mass/Vol] 13.7 g/dL Normal 11.5-15.5 [facility] Comment on above: Order Comment: Speci men Type: BLOOD SPECIMENOrdering Facility: [facility] Address: [address] [place] [address] Performed By: #### 5 7021-8 ####[facility] LABIA [id number] [place] [address] [place] Immature granulocytes (Bld) [#/Vol] 10*3/uL Normal <0.10 [facility] Comment on above: Order Comment: Speci men Type: BLOOD SPECIMENOrdering Facility: [facility] Address: [address] [place] [address] Performed By: #### 5 7021-8 ####[facility] LABCLIA [id number] [place] [id number] [place] Immature granulocytes/100 WBC (Bld) 0.3 % Normal [facility] Comment on above: Order Comment: Speci men Type: BLOOD SPECIMENOrdering Facility: [facility] Address: [address] [place] [address] Performed By: #### 5 7021-8 ####[facility] LABCLIA [id number] [place] [address] [place] Lymphocytes (Bld) [#/Vol] 2.88 10*3/uL Normal 1.00-4.0 0 [facility] Comment on above: Order Comment: Speci men Type: BLOOD SPECIMENOrdering Facility: [facility] Address: [address] [place] [address] Performed By: #### 5 7021-8 ####[facility] LABIA [id number] [place] [address] [place] Lymphocytes/100 WBC (Bld) 37.0 % Normal [facility] Comment on above: Order Comment: Speci men Type: BLOOD SPECIMENOrdering Facility: [facility] Address: [address] [place] [address] Performed By: #### 5 7021-8 ####[facility] LABIA [id number] [place] [address] [place] MCH (RBC) [Entitic mass] 29.5 pg Normal 26.0-34.0 [facility] Comment on above: Order Comment: Speci men Type: BLOOD SPECIMENOrdering Facility: [facility] Address: [address] [place] [address] Performed By: #### 5 7021-8 ####[facility] LABIA [id number] [place] [id number] [place] MCHC (RBC) [Mass/Vol] 32.9 g/dL Normal 30.5-36.0 [facility] Comment on above: Order Comment: Speci men Type: BLOOD SPECIMENOrdering Facility: [facility] Address: [address] [place] [address] Performed By: #### 5 7021-8 ####[facility] LABCLIA [id number] [address] [place] [address] [place] MCV (RBC) [Entitic vol] 89.5 fL Normal 80.0-100.0 [facility] Comment on above: Order Comment: Speci men Type: BLOOD SPECIMENOrdering Facility: [facility] Address: [address] [place] [address] Performed By: #### 5 7021-8 ####[facility] LABCLIA [id number] [address], [place] [address] [place] Monocytes (Bld) [#/Vol] 0.48 10*3/uL Normal <0.87 [facility] Comment on above: Order Comment: Speci men Type: BLOOD SPECIMENOrdering Facility: [facility] Address: [address] [place] [address] Performed By: #### 5 7021-8 ####[facility] LABCLIA [id number] [place] [address] [place] Monocytes/100 WBC (Bld) 6.2 % Normal [facility] Comment on above: Order Comment: Speci men Type: BLOOD SPECIMENOrdering Facility: [facility] Address: [address] [place] [address] Performed By: #### 5 7021-8 ####[facility] LABCLIA [id number] [place] [address] [place] Neutrophils (Bld) [#/Vol] 4.38 10*3/uL Normal 1.45-7.5 0 [facility] Comment on above: Order Comment: Speci men Type: BLOOD SPECIMENOrdering Facility: [facility] Address: [address] [place] [address] Performed By: #### 5 7021-8 ####[facility] LABCLIA [id number] [place] [id number] [place] Neutrophils/100 WBC (Bld) 56.2 % Normal [facility] Comment on above: Order Comment: Speci men Type: BLOOD SPECIMENOrdering Facility: [facility] Address: [address] [place] [address] Performed By: #### 5 7021-8 ####[facility] LABCLIA [id number] [address] [place] [address] [place] Nucleated RBC (Bld) [#/Vol] 10*3/uL Normal <0.01 [facility] Comment on above: Order Comment: Speci men Type: BLOOD SPECIMENOrdering Facility: [facility] Address: [address] [place] [address] Performed By: #### 5 7021-8 ####[facility] LABIA [id number] [address], [facility] [place] Nucleated RBC/100 WBC (Bld) [Ratio] 0.0 /100 WBC Normal [facility] Comment on above: Order Comment: Speci men Type: BLOOD SPECIMENOrdering Facility: [facility] Address: [address] [place] [address] Performed By: #### 5 7021-8 ####[facility] LABIA [id number] [place] [id number] [place] Platelet mean volume (Bld) [Entitic vol] 9.8 fL Normal 9.0-12.7 [facility] Comment on above: Order Comment: Speci men Type: BLOOD SPECIMENOrdering Facility: [facility] Address: [address] [place] [address] Performed By: #### 5 7021-8 ####[facility] LABIA [id number] [place] [id number] [place] Platelets (Bld) [#/Vol] 281 10*3/uL Normal 150-400 [facility] Comment on above: Order Comment: Speci men Type: BLOOD SPECIMENOrdering Facility: [facility] Address: [address] [place] [address] Performed By: #### 5 7021-8 ####[facility] LABIA [id number] [address] [address] [place] RBC (Bld) [#/Vol] 4.65 10*6/uL Normal 3.90-5.20 [facility] Comment on above: Order Comment: Speci men Type: BLOOD SPECIMENOrdering Facility: [facility] Address: [address] [place], [place] [address] Performed By: #### 5 7021-8 ####[facility] LABIA [id number] [address] [address] [place] WBC (Bld) [#/Vol] 7.78 10*3/uL Normal 3.70-11.00 [facility] Comment on above: Order Comment: Speci men Type: BLOOD SPECIMENOrdering Facility: [facility] Address: [address] [place] [address] Performed By: #### 5 7021-8 ####[facility] LABIA [id number] [place] [id number] [facility] CNOVon 06-02-2024 CNOV Office Visit (INTMWS ) CATHY CAM ([id number]) 1975 F Date Time Provider Department 06/02/24 7:20 AM JORGE MADDEN INTMWS During your visit today, we recorded the following information about you: Pulse Blood pressure Weight Last Period 83/minute 102/78 93.5 kg 04/07/24 Jorge Madden APRN.PLANT OPERATIONS MANAGER 06/02/2024 7:47 AM Signed SUBJECTIVE Cathy Milly Cam is a 49 year old female here today for a check up on her medical problems. Chief Complaint Patient presents with: F/U 3 Month HPI Cathy Cam is a 49 year old female. She is an established patient. She presents today for routine 3 month follow up. Accompanied by her significant other. Seeing ortho with Dr. Nicholson. Dx of left shoulder impingement, left arm pain, rigo carpal tunnel. She was planning to have surgery for carpal tunnel on the left but had to cancel. Issues with cough since February. Smoking still. Cough is productive, brown, thick. She does have shortness of breath with activity. Some wheezing. Has history of seizure disorder, lights are starting to bother her. Did not see neurology. She was planning to see [facility] but not able to get in until Fall. Continues on Dilantin. Seeing counseling center for mental health needs. Sleeping a lot during the day but not much at night. Continues to live sober. Continues to take her synthroid, needs a refill. Her medications were reviewed today and her list is now up to date. Medications Current Outpatient Medications Medication Sig fluticasone-salmeterol (ADVAIR) 500-50 mcg/dose dsdv Inhale 1 Puff as instructed two times a day. Cholecalciferol, Vitamin D3, 25 mcg (1,000 unit) cap Take 1 capsule by mouth once daily. phenytoin ER 300 mg ER capsule Take 1 capsule by mouth once daily. take in the morning Phenytoin Sodium Extended 200 mg ER capsule Take 1 capsule by mouth daily at bedtime. benzonatate (TESSALON PERLE) 100 mg capsule Take 1-2 capsules by mouth three times a day as needed for cough. albuterol HFA (PROAIR HFA) 90 mcg/actuation inhaler Inhale 2 Puffs as instructed every 4 hours as needed. etodolac (LODINE) 400 mg tablet Take 1 tablet by mouth two times a day. cetirizine (ZYRTEC) 10 mg tablet Take 1 tablet by mouth once daily. venlafaxine ER (EFFEXOR XR) 150 mg 24 hr capsule Take 1 capsule by mouth once daily. levothyroxine (SYNTHROID) 25 mcg tablet Take 1 tablet by mouth once daily. tiotropium bromide (SPIRIVA RESPIMAT) 2.5 mcg/actuation inhaler Inhale 2 Puffs as instructed once daily. doxycycline monohydrate (MONODOX) 100 mg capsule Take 1 capsule by mouth two times a day for 14 days. No current facility-administered medications for this visit. ALLERGIES Allergen Reactions Quetiapine Other: See Comments Seizures Aspirin Other: See Comments, Unknown Fish Containing Pro* Unknown, Other: See Comments Pear Hives Shellfish Derived Hives Trazodone Contraindication-Medic al Surgical, Other: See Comments triggers my seizures Erythromycin Vomiting Other reaction(s): Nausea And Vomiting Latex Rash, Itching ACTIVE PROBLEM LIST Obesity, Class II, Bmi 35-39.9 - 10/19/2023 Colitis - 06/21/2022 Obesity, Class III, BMI >= 40 - 05/24/2022 Hypothyroidism - 05/24/2022 Seizure Disorder (Hcc) - 05/24/2022 Major Depression, Recurrent (Hcc) - 08/25/2021 Depressive Disorder - 02/25/2007 Anxiety - 02/25/2007 History of Alcohol Abuse - 02/25/2007 Social History Tobacco Use Smoking status: Every Day Current packs/day: 0.50 Average packs/day: 0.5 packs/day for 18.0 years (9.0 ttl pk-yrs) Types: Cigarettes Smokeless tobacco: Never Vaping Use Vaping status: Never Used Substance Use Topics Alcohol use: Yes Alcohol/week: 3.0 standard drinks of alcohol Types: 3 Cans of Beer (12oz) per week Drug use: No Review of Systems Constitutional: Negative. Respiratory: Positive for cough, shortness of breath and wheezing. Cardiovascular: Negative. OBJECTIVE BP 102/78 Pulse 83 Wt 206 lb 2.1 oz (93.5kg) SpO2 98% LMP 04/07/2024 Physical Exam Vitals and nursing note reviewed. Constitutional: General: She is awake. She is not in acute distress. Appearance: Normal appearance. She is well-developed and well-groomed. She is not ill-appearing, toxic-appearing or diaphoretic. HENT: Head: Normocephalic. Right Ear: External ear normal. Left Ear: External ear normal. Nose: Nose normal. Eyes: General: Vision grossly intact. Conjunctiva/sclera: Conjunctivae normal. Pupils: Pupils are equal, round, and reactive to light. Neck: Vascular: No JVD. Trachea: Trachea normal. Cardiovascular: Rate and Rhythm: Normal rate and regular rhythm. Pulses: Normal pulses. Heart sounds: Normal heart sounds. No murmur heard. Pulmonary: Effort: Pulmonary effort is normal. No accessory muscle usage, prolonged expiration or respiratory distress. B (more content not included)... Normal [facility] Comprehensive metabolic 2000 panelon 06-02-2024 Albumin [Mass/Vol] 4.1 g/dL Normal 3.9-4.9 [facility] Comment on above: Order Comment: Speci men Type: BLOOD SPECIMENOrdering Facility: [facility] Address: [address] [place] [address] Performed By: #### 2 4323-8, 3051-0, 3024-7, 3016-3 ####[facility] LABIA [id number] [place] [id number] [place] ALP [Catalytic activity/Vol] 155 U/L High 34-123 [facility] Comment on above: Order Comment: Speci men Type: BLOOD SPECIMENOrdering Facility: [facility] Address: [address] [place] [address] Performed By: #### 2 4323-8, 3051-0, 3024-7, 3016-3 ####[facility] LABIA [id number] [place] [id number] [place] ALT [Catalytic activity/Vol] 14 U/L Normal 7-38 [facility] Comment on above: Order Comment: Speci men Type: BLOOD SPECIMENOrdering Facility: [facility] Address: [address] [place], [place] [address] Performed By: #### 2 4323-8, 3051-0, 3024-7, 3016-3 ####[facility] LABIA [id number] [address] [address] [place] Anion gap [Moles/Vol] 8 mmol/L Normal 8-15 [facility] Comment on above: Order Comment: Speci men Type: BLOOD SPECIMENOrdering Facility: [facility] Address: [address] [place] [address] Performed By: #### 2 4323-8, 3051-0, 3024-7, 3016-3 ####[facility] LABCLIA [id number] [place] [id number] [place] AST [Catalytic activity/Vol] 12 U/L Low 13-35 [facility] Comment on above: Order Comment: Speci men Type: BLOOD SPECIMENOrdering Facility: [facility] Address: [address] [place] [address] Performed By: #### 2 4323-8, 3051-0, 3024-7, 3016-3 ####[facility] LABIA [id number] [place] [id number] [place] Bilirubin [Mass/Vol] 0.3 mg/dL Normal 0.2-1.3 [facility] Comment on above: Order Comment: Speci men Type: BLOOD SPECIMENOrdering Facility: [facility] Address: [address] [place] [address] Performed By: #### 2 4323-8, 3051-0, 3023-7, 6-3 ####[facility] [id number] [place] [id number] [place] Calcium [Mass/Vol] 9.4 mg/dL Normal 8.5-10.2 [facility] Comment on above: Order Comment: Speci men Type: BLOOD SPECIMENOrdering Facility: [facility] Address: [address] [place], [place] [address] Performed By: #### 2 4323-8, 3051-0, 3024-7, 3016-3 ####[facility] LABIA [id number] [place] [id number] [place] Chloride [Moles/Vol] 102 mmol/L Normal 98-107 [facility] Comment on above: Order Comment: Speci men Type: BLOOD SPECIMENOrdering Facility: [facility] Address: [address] [place], [place] [address] Performed By: #### 2 4323-8, 3051-0, 3024-7, 6-3 ####[facility] LABCLIA [id number] [place] [id number] [place] CO2 [Moles/Vol] 27 mmol/L Normal 22-30 [facility] Comment on above: Order Comment: Speci men Type: BLOOD SPECIMENOrdering Facility: [facility] Address: [address] [place] [address] Performed By: #### 2 4323-8, 3051-0, 3024-7, 6-3 ####[facility] LABIA [id number] [place] [id number] [place] Creatinine [Mass/Vol] 0.67 mg/dL Normal 0.58-0.96 [facility] Comment on above: Order Comment: Speci men Type: BLOOD SPECIMENOrdering Facility: [facility] Address: [address] [place] [address] Performed By: #### 2 4323-8, 3051-0, 302-7, 6-3 ####[facility] LABIA [id number] [place] [address] [place] Creatinine and Glomerular filtration rate.predicted panel (S/P/Bld) 108 mL/min/1.73m??? Normal >=60 [facility] Comment on above: Order Comment: Speci men Type: BLOOD SPECIMENOrdering Facility: [facility] Address: [address] [place] [address] Result Comment: Lindsey mated Glomerular Filtration Rate (eGFR) is calculated using the 2020 CKD-EPI creatinine equation. This equation utilizes serum creatinine, sex, and age as parameters. The creatinine assay has traceable calibration to isotope dilution-mass spectrometry. Refer to KDIGO guidelines for clinical interpretation. In patients with unstable renal function, e.g. those with acute kidney injury, the eGFR may not accurately reflect actual GFR. Performed By: #### 2 4323-8, 3051-0, 3024-7, 6-3 ####[facility] LABCLIA [id number] [address] [address] [place] Glucose [Mass/Vol] 80 mg/dL Normal 74-99 [facility] Comment on above: Order Comment: Speci men Type: BLOOD SPECIMENOrdering Facility: [facility] Address: [address] [place] [address] Result Comment: The [place] Diabetes Association (ADA) provides guidance for cutoff values for fasting glucose and random glucose. The ADA defines fasting as no caloric intake for at least 8 hours. Fasting plasma glucose results between 100 to 125 mg/dL indicate increased risk for diabetes (prediabetes). Fasting plasma glucose results greater than or equal to 126 mg/dL meet the criteria for diagnosis of diabetes. In the absence of unequivocal hyperglycemia, results should be confirmed by repeat testing. In a patient with classic symptoms of hyperglycemia or hyperglycemic crisis, random plasma glucose results greater than or equal to 200 mg/dL meet the criteria for diagnosis of diabetes. Reference: Standards of Medical Care in Diabetes 2016, [place] [employer] Association. Diabetes Care. 2016.39(Suppl 1). Performed By: #### 2 4323-8, 3051-0, 3024-7, 3016-3 ####[facility] LABIA [id number] [place] [id number] [place] Potassium [Moles/Vol] 4.4 mmol/L Normal 3.7-5.1 [facility] Comment on above: Order Comment: Speci men Type: BLOOD SPECIMENOrdering Facility: [facility] Address: [address] [place] [address] Performed By: #### 2 4323-8, 3051-0, 3024-7, 3016-3 ####[facility] LABIA [id number] [place] [id number] [place] Protein [Mass/Vol] 6.8 g/dL Normal 6.3-8.0 [facility] Comment on above: Order Comment: Speci men Type: BLOOD SPECIMENOrdering Facility: [facility] Address: [address] [place] [address] Performed By: #### 2 4323-8, 3051-0, 3024-7, 3016-3 ####[facility] LABCLIA [id number] [place] [id number] [place] Sodium [Moles/Vol] 137 mmol/L Normal 136-144 [facility] Comment on above: Order Comment: Speci men Type: BLOOD SPECIMENOrdering Facility: [facility] Address: [address] [place], [place] [address] Performed By: #### 2 4323-8, 3051-0, 3024-7, 3016-3 ####[facility] LABIA [id number] [place] [id number] [place] Urea nitrogen [Mass/Vol] 9 mg/dL Normal 7-21 [facility] Comment on above: Order Comment: Speci men Type: BLOOD SPECIMENOrdering Facility: [facility] Address: [address] [place] [address] Performed By: #### 2 4323-8, 3051-0, 3024-7, 3016-3 ####[facility] LABIA [id number] [place] [id number] [place] Phenytoin SerPl-mCncon 06-02 Phenytoin [Mass/Vol] 9.8 ug/mL Low 10.0-20.0 [facility] Comment on above: Order Comment: Speci men Type: BLOOD SPECIMENOrdering Facility: [facility] Address: [address] [place], [place] [address] Result Comment: Refe rence ranges and high/low indicator flags are provided as general guidelines only. The treating physician must determine appropriate target levels/dosing based on the specific clinical situation. Performed By: #### 3 968-5 ####[facility] LABCLIA [id number] [place] [id number] [place] T3Free SerPl-mCncon 06-03-19 25 Free T3 [Mass/Vol] 2.9 pg/mL Normal 2.3-4.1 [facility] Comment on above: Order Comment: Speci anastasia Type: BLOOD SPECIMENOrdering Facility: [facility] Address: [address] [place] [address] Performed By: #### 2 4323-8, 3051-0, 3024-7, 3016-3 ####[facility] LABCLIA [id number] [place] [address] [place] T4 Free SerPl-mCncon 025 Free T4 [Mass/Vol] 1.0 ng/dL Normal 0.9-1.7 [facility] Comment on above: Order Comment: Emmanuelle oconnor Type: BLOOD SPECIMENOrdering Facility: [facility] Address: [address] [place] [address] Performed By: #### 2 4323-8, 3051-0, 3024-7, 3016-3 ####[facility] LABCLIA [id number] [place] [address] [place] TSH SerPl-aCncon 06-02-2024 TSH Qn 2.630 m[IU]/L Normal 0.270-4.20 0 [facility] Comment on above: Order Comment: Emmanuelle oconnor Type: BLOOD SPECIMENOrdering Facility: [facility] Address: [address] [place] [address] Result Comment: If t he patient is , TSH reference range varies by gestational period: First Trimester (weeks 9-12): 0.180-2.990 mIU/L Second Trimester: 0.110-3.980 mIU/L Third Trimester: 0.480-4.710 mIU/L Soren Fairchild et al. A Practical Approach for the Verifications and Determination of Site- and Trimester-Specific Reference Intervals for Thyroid Function tests in . Thyroid, 2019:29:3:412-420. Chepe Atkins et al. 2017 Guidelines of the [place] Thyroid Association for the Diagnosis and Management of Thyroid Disease during and the . Thyroid, 2017:27:3:315-389. Performed By: #### 2 4323-8, 3051-0, 3024-7, 3016-3 ####[facility] LABCLIA [id number] [place] [address] [place] Phenytoin SerPl-mCncon 05-09 Phenytoin [Mass/Vol] 9.5 ug/mL Low 10.0-20.0 [facility] Comment on above: Order Comment: Speci men Type: BLOOD SPECIMENOrdering Facility: [facility] Address: [address] [place] [address] Result Comment: Refe rence ranges and high/low indicator flags are provided as general guidelines only. The treating physician must determine appropriate target levels/dosing based on the specific clinical situation. Performed By: #### 3 [id number] ####[facility] LABCLIA [id number] [address] OF [place] Kal[place] 2024 CNPN Telephone (INTMWS) CATHY CAM ([id number]) 1975 F Date Time Provider Department 04/11/24 JORGE MADDEN INTWS During your visit today, we recorded the following information about you: Dahlia Amezquita LPN 2024 10:16 AM Signed ----- Message from Jennifer Vargas APRN.[employer] sent at 2024 7:36 AM EST ----- Please let her know that phenytoin level is decreased. Check to see if missing any doses. Dahlia Amezquita LPN 2024 10:18 AM Signed Pt given results below and she is not sure if she has missed any doses. She thought she could of. Other message says to repeat la at next visit. Pt's next apt is not till May and she wants to know if you really want her to wait till then or come back in to get done. Please advise pt. TENA Linder Laurie Lynn, LPN 2024 10:20 AM Signed Closed in error. See message below from pt. TENA Linder Terri, APRN.[employer] 2024 4:27 PM Signed We can check levels in 1 month. Jennifer Agarwal APRN.[employer] 2024 4:27 PM Signed Addended by: JENNIFER AGARWAL on: 2024 04:27 PM Modules accepted: Orders Chelsey Tobar LPN 2024 4:45 PM Signed No answer. Left providers message on voice mailbox and asked patient to call office and ask to speak to a nurse with any questions or concerns Allergies As of Date: 2024 Noted Allergy Reaction QUETIAPINE 01/18/2022 14 - Other: See Comments Comments: Seizures ASPIRIN 05/02/2021 14 - Other: See Comments 16 - Unknown FISH CONTAINING PRODUCTS 05/02/2021 16 - Unknown 14 - Other: See Comments PEAR 02/07/2017 4 - Hives SHELLFISH DERIVED 01/10/2022 4 - Hives TRAZODONE 05/02/2021 15 - Contraindication-Medic al Whiteside*14 - Other: See Comments Comments: triggers my seizures ERYTHROMYCIN 07/05/2006 11 - Vomiting Comments: Other reaction(s): Nausea And Vomiting LATEX 07/19/2006 2 - Rash 9 - Itching Date Reviewed: 02/28/2024 Reviewed by: Chelsey Tobar LPN - Fully Assessed Reason for Visit: results [Other] Primary Visit Diagnosis:Seizure disorder (HCC) [G40.909] Order(s):PHENYTOIN/DIL ANTIN [SQPHT] Order #: [id number] FUTURE Prescriptions as of 2024 - fluticasone-salmeterol (ADVAIR DISKUS) 250-50 mcg/dose inhaler Inhale 1 Puff as instructed two times a day. Rinse mouth after use. - predniSONE (DELTASONE) 10 mg tablet Take 2 tabs po BID for 2 days then 1 tab po BID for 2 days then 1/2 tab po BID for 2 days then 1/2 tab daily for 2 days then stop - benzonatate (TESSALON PERLE) 100 mg capsule Take 1-2 capsules by mouth three times a day as needed for cough. - albuterol HFA (PROAIR HFA) 90 mcg/actuation inhaler Inhale 2 Puffs as instructed every 4 hours as needed. - etodolac (LODINE) 400 mg tablet Take 1 tablet by mouth two times a day. - phenytoin ER 300 mg ER capsule Take 1 capsule by mouth once daily. take in the morning - Phenytoin Sodium Extended 200 mg ER capsule Take 1 capsule by mouth daily at bedtime. - cetirizine (ZYRTEC) 10 mg tablet Take 1 tablet by mouth once daily. - venlafaxine ER (EFFEXOR XR) 150 mg 24 hr capsule Take 1 capsule by mouth once daily. - Lactobacillus acidoph-pectin (ACIDOPHILUS-PECTIN) 75 million cell -100 mg cap Take 1 capsule by mouth once daily. - levothyroxine (SYNTHROID) 25 mcg tablet Take 1 tablet by mouth once daily. - Cholecalciferol, Vitamin D3, 25 mcg (1,000 unit) cap Take 1 capsule by mouth once daily. Meds Comments as of 04/12/2007: All medications have been reviewed today/April 12, 2007 Lynda Hardin [employer] Problem List As Of Date 2024 Noted Resolved SUPRV HIGH-RISK PREG NOS [O09.90] 07/19/2006 07/25/2006 Personal history of pre-term labor [Z87.51] 07/25/2006 05/24/2022 Supervision of other high-risk (V23.89*07/2505/24/2022 Depressive disorder [F32.A] 02/25/2007 Anxiety [F41.9] 02/25/2007 History of alcohol abuse [F10.11] 02/25/2007 Obesity, Class III, BMI >= 40 [E66.01] 05/24/2022 Major depression, recurrent (HCC) [F33.9] 08/25/2021 Severe major depression, single episode (HCC) [*01/18/2022 05/24/2022 Hypothyroidism [E03.9] 05/24/2022 Seizure disorder (HCC) [G40.909] 05/24/2022 Colitis [K52.9] 06/21/2022 Obesity, Class II, BMI 35-39.9 [E66.812] 10/19/2023 Encounter Status:Closed by DAHLIA AMEZQUITA on 04/11/24 [facility] CNOVon 02-28-2024 CNOV Office Visit (INTMWS ) CATHY CAM ([id number]) 1975 F Date Time Provider Department 02/28/24 7:20 AM JENNIFER AGARWAL INTMWS During your visit today, we recorded the following information about you: Temperature Pulse Respiration Blood pressure 98.6 degrees 93/minute 16/minute 110/74 Weight 91.3 kg Jennifer Agarwal APRN.[facility] 02/28/2024 8:05 AM Signed SUBJECTIVE Cathy Cam is a 48 year old female who presents with 2 weeks of symptoms that are stable. Symptoms include: Fever (>=100.4F): No or Chills: No Cough: Yes Shortness of breath: Yes SOBOE, slightly increased or Difficulty breathing: No Fatigue: Yes Muscle aches: No Headache: No New loss of smell or taste: No Sore throat: No Nasal congestion: Yes or Rhinorrhea: Yes Nausea: No or Vomiting: No Diarrhea: No OTC meds/remedies that patient has tried: Mucinex, OTC cough syrup, and OTC cold medicine. Exposures: Sick contacts? Yes SO She reports that she has been smoking cigarettes. She has a 9 pack-year smoking history. She has never used smokeless tobacco. OBJECTIVE PHYSICAL EXAM: BP 110/74 Pulse 93 Temp 37 ?C (98.6 ?F) Resp 16 Wt 91.3 kg (201 lb 4.5 oz) LMP 10/19/2023 (Exact Date) SpO2 99% BMI 39.31 kg/m? General appearance: tired/ill appearing, alert, cooperative, pleasant, in no acute distress Head: Normocephalic Eyes: conjunctiva/corneas normal Ears: R TM - clear with good landmarks, nl light reflex, L TM - clear with good landmarks, nl light reflex Nose: purulent rhinorrhea Oropharynx: moist without lesions, mild erythema to GPA Neck: supple and small, benign anterior cervical nodes bilaterally Heart: regular rate and rhythm, without murmur Lungs: clear to auscultation, good air exchange, scattered end expiratory wheezes Latest Ref Rng 10/19/2023 11/27/2023 WBC 3.70 - 11.00 k/uL 7.06 RBC 3.90 - 5.20 m/uL 4.87 Hemoglobin 11.5 - 15.5 g/dL 15.0 Hematocrit 36.0 - 46.0 % 43.1 MCV 80.0 - 100.0 fL 88.5 MCH 26.0 - 34.0 pg 30.8 MCHC 30.5 - 36.0 g/dL 34.8 RDW-CV 11.5 - 15.0 % 12.7 Platelet Count 150 - 400 k/uL 283 MPV 9.0 - 12.7 fL 10.2 Neut% % 51.0 Abs Neut (ANC) 1.45 - 7.50 k/uL 3.60 Lymph% % 40.2 Abs Lymph 1.00 - 4.00 k/uL 2.84 [place]% % 5.7 Abs [place] <0.87 k/uL 0.40 Eosin% % 2.0 Abs Eosin <0.46 k/uL 0.14 Baso% % 1.0 Abs Baso <0.11 k/uL 0.07 Immature Gran % % 0.1 IMMATURE GRANS (ABS) <0.10 k/uL <0.03 NRBC /100 WBC 0.0 Absolute nRBC <0.01 k/uL <0.01 DTYPE Auto Protein, Total 6.3 - 8.0 g/dL 6.9 Albumin 3.9 - 4.9 g/dL 4.2 Calcium 8.5 - 10.2 mg/dL 9.5 Bilirubin, Total 0.2 - 1.3 mg/dL 0.3 Alkaline Phosphatase 34 - 123 U/L 191 (H) AST 13 - 35 U/L 20 ALT 7 - 38 U/L 17 Glucose 74 - 99 mg/dL 75 BUN 7 - 21 mg/dL 6 (L) Creatinine 0.58 - 0.96 mg/dL 0.59 Sodium 136 - 144 mmol/L 139 Potassium 3.7 - 5.1 mmol/L 4.4 Chloride 98 - 107 mmol/L 102 CO2 22 - 30 mmol/L 23 Anion Gap 8 - 15 mmol/L 14 eGFR >=60 mL/min/1.73m? 112 Hemoglobin A1C 4.3 - 5.6 % 5.1 Estimated Average Glucose mg/dL 100 TSH 0.270 - 4.200 mIU/L 2.560 Vitamin D 25 Hydroxy 31.0 - 80.0 ng/mL 41.2 Phenytoin 10.0 - 20.0 ug/mL 8.0 (L) 14.9 Lamotrigine 1.0 - 13.0 ug/mL <0.5 (L) ASSESSMENT/PLAN (R05.1) Acute cough (primary encounter diagnosis) (J44.1) Chronic obstructive pulmonary disease with acute exacerbation (HCC) (J32.9, J40) Sinobronchitis (G40.909) Seizure disorder ([facility]) ASSESSMENT/PLAN: 1. Acute cough - ICD9: 786.2, ICD10: R05.1 (primary diagnosis) 3. Sinobronchitis - ICD9: 473.9, 490, ICD10: J32.9, J40 2. Chronic obstructive pulmonary disease with acute exacerbation (HCC) - ICD9: 491.21, ICD10: J44.1 - Will begin treatment with as per antibiotic as written, see orders - Supportive care with plenty of fluids, rest, and analgesia prn. - Follow up if symptoms persist or worsen. - FLUTICASONE 250 MCG-SALMETEROL 50 MCG/DOSE BLISTR POWDR FOR INHALATION - PREDNISONE 10 MG TABLET - AMOXICILLIN 875 MG-POTASSIUM CLAVULANATE 125 MG TABLET - BENZONATATE 100 MG CAPSULE 4. Seizure disorder (HCC) - ICD9: 345.90, ICD10: G40.909 - PHENYTOIN/DILANTIN She will contact orthopedics to reschedule surgery. Jennifer Agarwal APRN.[employer] Medical Decision Making: Problems: Low: Acute, uncomplicated illness or injury and Stable chronic illness Data: Unique test result(s) reviewed: 3+ Risk: Moderate: Drug management Medical Decision Making Level: 4 - Moderate Allergies As of Date: 02/28/2024 Noted Allergy Reaction QUETIAPINE 01/18/2022 14 - Other: See Comments Comments: Seizures ASPIRIN 05/02/2021 14 - Other: See Comments 16 - Unknown FISH CONTAINING PRODUCTS 05/02/2021 16 - Unknown 14 - Other: See Comments PEAR 02/07/2017 4 - Hives SHELLFISH DERIVED 01/10/2022 4 - Hives TRAZODONE 05/02/2021 15 - Contraindication-Medic al Whiteside*14 - Other: See Comments Comments: triggers my seizures ERYT (more content not included)... Normal [facility] Kalen 02-28-2024 CNPN Telephone ([place]) CATHY CAM ([id number]) 1975 F Date Time Provider Department 02/28/24 TINO NICHOLSON During your visit today, we recorded the following information about you: Gris Martines LPN 02/28/2024 10:05 AM Signed Patient called. Verified name and date of . States she is not feeling well and cancelled surgery scheduled for tomorrow and needs to reschedule. TNEA Galo Amy M, MA 02/29/2024 9:12 AM Signed I called and left a message for the patient to contact the office. Please transfer to Ortho. Candis Gallagher LPN 03/03/2024 2:35 PM Signed Patient called back and states she is currently on a lot of medications and antibiotics and she is not feeling well so she will not be able to reschedule her surgery until the beginning of the year or later. TENA Patrick Amy M, MA 03/04/2024 10:56 AM Signed I called and left a message for the patient to contact the office when she is ready to reschedule. Allergies As of Date: 02/28/2024 Noted Allergy Reaction QUETIAPINE 01/18/2022 14 - Other: See Comments Comments: Seizures ASPIRIN 05/02/2021 14 - Other: See Comments 16 - Unknown FISH CONTAINING PRODUCTS 05/02/2021 16 - Unknown 14 - Other: See Comments PEAR 02/07/2017 4 - Hives SHELLFISH DERIVED 01/10/2022 4 - Hives TRAZODONE 05/02/2021 15 - Contraindication-Medic al Whiteside*14 - Other: See Comments Comments: triggers my seizures ERYTHROMYCIN 07/05/2006 11 - Vomiting Comments: Other reaction(s): Nausea And Vomiting LATEX 07/19/2006 2 - Rash 9 - Itching Date Reviewed: 02/28/2024 Reviewed by: Cehlsey Tobar LPN - Fully Assessed Reason for Visit: Appointment [186] Prescriptions as of 03/04/2024 - fluticasone-salmeterol (ADVAIR DISKUS) 250-50 mcg/dose inhaler Inhale 1 Puff as instructed two times a day. Rinse mouth after use. - predniSONE (DELTASONE) 10 mg tablet Take 2 tabs po BID for 2 days then 1 tab po BID for 2 days then 1/2 tab po BID for 2 days then 1/2 tab daily for 2 days then stop - amoxicillin-clavulanat e potassium (AUGMENTIN) 875-125 mg per tablet Take 1 tablet by mouth two times a day for 7 days. Take with food - benzonatate (TESSALON PERLE) 100 mg capsule Take 1-2 capsules by mouth three times a day as needed for cough. - albuterol HFA (PROAIR HFA) 90 mcg/actuation inhaler Inhale 2 Puffs as instructed every 4 hours as needed. - etodolac (LODINE) 400 mg tablet Take 1 tablet by mouth two times a day. - phenytoin ER 300 mg ER capsule Take 1 capsule by mouth once daily. take in the morning - Phenytoin Sodium Extended 200 mg ER capsule Take 1 capsule by mouth daily at bedtime. - cetirizine (ZYRTEC) 10 mg tablet Take 1 tablet by mouth once daily. - venlafaxine ER (EFFEXOR XR) 150 mg 24 hr capsule Take 1 capsule by mouth once daily. - Lactobacillus acidoph-pectin (ACIDOPHILUS-PECTIN) 75 million cell -100 mg cap Take 1 capsule by mouth once daily. - levothyroxine (SYNTHROID) 25 mcg tablet Take 1 tablet by mouth once daily. - Cholecalciferol, Vitamin D3, 25 mcg (1,000 unit) cap Take 1 capsule by mouth once daily. Meds Comments as of 04/12/2007: All medications have been reviewed today/April 12, 2007 Lyndamckenzie Hardin [employer] Problem List As Of Date 02/28/2024 Noted Resolved SUPRV HIGH-RISK PREG NOS [O09.90] 07/19/2006 07/25/2006 Personal history of pre-term labor [Z87.51] 07/25/2006 05/24/2022 Supervision of other high-risk (V23.89*07/2505/24/2022 Depressive disorder [F32.A] 02/25/2007 Anxiety [F41.9] 02/25/2007 History of alcohol abuse [F10.11] 02/25/2007 Obesity, Class III, BMI >= 40 [E66.01] 05/24/2022 Major depression, recurrent (HCC) [F33.9] 08/25/2021 Severe major depression, single episode (HCC) [*01/18/2022 05/24/2022 Hypothyroidism [E03.9] 05/24/2022 Seizure disorder (HCC) [G40.909] 05/24/2022 Colitis [K52.9] 06/21/2022 Obesity, Class II, BMI 35-39.9 [E66.812] 10/19/2023 Encounter Status:Closed by CANDIS GALLAGHER on 03/03/24 [facility] Phenytoin SerPl-mCncon 02-27 Phenytoin [Mass/Vol] 5.8 ug/mL Low 10.0-20.0 [facility] Comment on above: Order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 [facility] Lymphocytes/100 WBC (Bld) 40.2 % [facility] MCH (RBC) [Entitic mass] 30.8 pg 26. 0 - 34.0 pg [facility] MCHC (RBC) [Mass/Vol] 34.8 g/dL 30.5 - 36.0 g/dL [facility] MCV (RBC) [Entitic vol] 88.5 fL 80.0 - 100.0 fL [facility] Monocytes (Bld) [#/Vol] 0.40 10*3/uL [facility] Monocytes/100 WBC (Bld) 5.7 % [facility] Neutrophils (Bld) [#/Vol] 3.60 10*3/uL [facility] Neutrophils/100 WBC (Bld) 51.0 % [facility] Nucleated RBC (Bld) [#/Vol] [facility] Nucleated RBC/100 WBC (Bld) [Ratio] 0.0 % /100 WBC [facility] Platelet mean volume (Bld) [Entitic vol] 10.2 fL 9.0 - 12.7 fL [facility] Platelets (Bld) [#/Vol] 283 10*3/uL [facility] RBC (Bld) [#/Vol] 4.87 10*6/uL 3.90 - 5.20 m/uL [facility] WBC (Bld) [#/Vol] 7.06 10*3/uL [facility] Basophils (Bld) [#/Vol] 0.07 10*3/uL Normal <0.11 [facility] Comment on above: Order Comment: Speci men Type: BLOOD SPECIMENOrdering Facility: [facility] Address: [address] [place] [address] Performed By: #### 5 7021-8 ####[facility] LABCLIA [id number] [place] [address] [place] Basophils/100 WBC (Bld) 1.0 % Normal [facility] Comment on above: Order Comment: Speci men Type: BLOOD SPECIMENOrdering Facility: [facility] Address: [address] [place] [address] Performed By: #### 5 7021-8 ####[facility] LABCLIA [id number] [place] [address] [place] Differential cell count method Nom (Bld) Auto Normal [facility] Comment on above: Order Comment: Speci men Type: BLOOD SPECIMENOrdering Facility: [facility] Address: [address] [place] [address] Performed By: #### 5 7021-8 ####[facility] LABCLIA [id number] [place] [address] [place] Eosinophils (Bld) [#/Vol] 0.14 10*3/uL Normal <0.46 [facility] Comment on above: Order Comment: Speci men Type: BLOOD SPECIMENOrdering Facility: [facility] Address: [address] [place] [address] Performed By: #### 5 7021-8 ####[facility] LABCLIA [id number] [place] [address] [place] Eosinophils/100 WBC (Bld) 2.0 % Normal [facility] Comment on above: Order Comment: Speci men Type: BLOOD SPECIMENOrdering Facility: [facility] Address: [address] [place] [address] Performed By: #### 5 7021-8 ####[facility] LABCLIA [id number] [place] [address] [place] Erythrocyte distribution width (RBC) [Ratio] 12.7 % Normal 11.5-15.0 [facility] Comment on above: Order Comment: Speci men Type: BLOOD SPECIMENOrdering Facility: [facility] Address: [address] [place] [address] Performed By: #### 5 7021-8 ####[facility] LABIA [id number] [place] [address] [place] Hematocrit (Bld) [Volume fraction] 43.1 % Normal 36.0-46.0 [facility] Comment on above: Order Comment: Speci men Type: BLOOD SPECIMENOrdering Facility: [facility] Address: [address] [place] [address] Performed By: #### 5 7021-8 ####[facility] LABIA [id number] [place] [address] [place] Hemoglobin (Bld) [Mass/Vol] 15.0 g/dL Normal 11.5-15.5 [facility] Comment on above: Order Comment: Speci men Type: BLOOD SPECIMENOrdering Facility: [facility] Address: [address] [place] [address] Performed By: #### 5 7021-8 ####[facility] LABIA [id number] [place] [address] [place] Immature granulocytes (Bld) [#/Vol] 10*3/uL Normal <0.10 [facility] Comment on above: Order Comment: Speci men Type: BLOOD SPECIMENOrdering Facility: [facility] Address: [address] [place] [address] Performed By: #### 5 7021-8 ####[facility] LABIA [id number] [place] [address] [place] Immature granulocytes/100 WBC (Bld) 0.1 % Normal [facility] Comment on above: Order Comment: Speci men Type: BLOOD SPECIMENOrdering Facility: [facility] Address: [address] [place] [address] Performed By: #### 5 7021-8 ####[facility] LABCLIA [id number] [place] [address] [place] Lymphocytes (Bld) [#/Vol] 2.84 10*3/uL Normal 1.00-4.0 0 [facility] Comment on above: Order Comment: Speci men Type: BLOOD SPECIMENOrdering Facility: [facility] Address: [address] [place] [address] Performed By: #### 5 7021-8 ####[facility] LABCLIA [id number] [place] [address] [place] Lymphocytes/100 WBC (Bld) 40.2 % Normal [facility] Comment on above: Order Comment: Speci men Type: BLOOD SPECIMENOrdering Facility: [facility] Address: [address] [place] [address] Performed By: #### 5 7021-8 ####[facility] LABCLIA [id number] [place] [address] [place] MCH (RBC) [Entitic mass] 30.8 pg Normal 26.0-34.0 [facility] Comment on above: Order Comment: Speci men Type: BLOOD SPECIMENOrdering Facility: [facility] Address: [address] [place] [address] Performed By: #### 5 7021-8 ####[facility] LABCLIA [id number] [place] [address] [place] MCHC (RBC) [Mass/Vol] 34.8 g/dL Normal 30.5-36.0 [facility] Comment on above: Order Comment: Speci men Type: BLOOD SPECIMENOrdering Facility: [facility] Address: [address] [place] [address] Performed By: #### 5 7021-8 ####[facility] LABCLIA [id number] [place] [address] [place] MCV (RBC) [Entitic vol] 88.5 fL Normal 80.0-100.0 [facility] Comment on above: Order Comment: Speci men Type: BLOOD SPECIMENOrdering Facility: [facility] Address: [address] [place] [address] Performed By: #### 5 7021-8 ####[facility] LABCLIA [id number] [place] [address] [place] Monocytes (Bld) [#/Vol] 0.40 10*3/uL Normal <0.87 [facility] Comment on above: Order Comment: Speci men Type: BLOOD SPECIMENOrdering Facility: [facility] Address: [address] [place] [address] Performed By: #### 5 7021-8 ####[facility] LABCLIA [id number] [place] [address] [place] Monocytes/100 WBC (Bld) 5.7 % Normal [facility] Comment on above: Order Comment: Speci men Type: BLOOD SPECIMENOrdering Facility: [facility] Address: [address] [place] [address] Performed By: #### 5 7021-8 ####[facility] LABCLIA [id number] [place] [address] [place] Neutrophils (Bld) [#/Vol] 3.60 10*3/uL Normal 1.45-7.5 0 [facility] Comment on above: Order Comment: Speci men Type: BLOOD SPECIMENOrdering Facility: [facility] Address: [address] [place] [address] Performed By: #### 5 7021-8 ####[facility] LABCLIA [id number] [place] [address] [place] Neutrophils/100 WBC (Bld) 51.0 % Normal [facility] Comment on above: Order Comment: Speci men Type: BLOOD SPECIMENOrdering Facility: [facility] Address: [address] [place] [address] Performed By: #### 5 7021-8 ####[facility] LABIA [id number] [place] [address] [place] Nucleated RBC (Bld) [#/Vol] 10*3/uL Normal <0.01 [facility] Comment on above: Order Comment: Speci men Type: BLOOD SPECIMENOrdering Facility: [facility] Address: [address] [place] [address] Performed By: #### 5 7021-8 ####[facility] LABIA [id number] [place] [address] [place] Nucleated RBC/100 WBC (Bld) [Ratio] 0.0 /100 WBC Normal [facility] Comment on above: Order Comment: Speci men Type: BLOOD SPECIMENOrdering Facility: [facility] Address: [address] [place] [address] Performed By: #### 5 7021-8 ####[facility] LABIA [id number] [place] [address] [place] Platelet mean volume (Bld) [Entitic vol] 10.2 fL Normal 9.0-12.7 [facility] Comment on above: Order Comment: Speci men Type: BLOOD SPECIMENOrdering Facility: [facility] Address: [address] [place] [address] Performed By: #### 5 7021-8 ####[facility] LABIA [id number] [place] [address] [place] Platelets (Bld) [#/Vol] 283 10*3/uL Normal 150-400 [facility] Comment on above: Order Comment: Speci men Type: BLOOD SPECIMENOrdering Facility: [facility] Address: [address] [place] [address] Performed By: #### 5 7021-8 ####[facility] LABCLIA [id number] [place] [address] [place] RBC (Bld) [#/Vol] 4.87 10*6/uL Normal 3.90-5.20 [facility] Comment on above: Order Comment: Speci men Type: BLOOD SPECIMENOrdering Facility: [facility] Address: [address] [place] [address] Performed By: #### 5 7021-8 ####[facility] LABCLIA [id number] [place] [address] [place] WBC (Bld) [#/Vol] 7.06 10*3/uL Normal 3.70-11.00 [facility] Comment on above: Order Comment: Speci men Type: BLOOD SPECIMENOrdering Facility: [facility] Address: [address] [place] [address] Performed By: #### 5 7021-8 ####[facility] LABCLIA [id number] [place] [address] [place] [place] CNOVon 10-19-2023 CNOV Office Visit (INTMWS ) CATHY CAM ([id number]) 1975 F Date Time Provider Department 10/19/23 10:20 AM JORGE MADDEN INTMWS During your visit today, we recorded the following information about you: Pulse Respiration Blood pressure Weight 64/minute 12/minute 104/80 90.7 kg Last Period 10/19/23 Jorge Madden APRN.PLANT OPERATIONS MANAGER 10/19/2023 12:13 PM Signed SUBJECTIVE Cathy Milly Cam is a 48 year old female here today for a check up on her medical problems. Chief Complaint Patient presents with: Recheck HPI Cathy Cam is a 48 year old female. She is an established patient. Presents today for follow up. History of seizures, COPD, smoker, fatty liver, hypothyroid, vitamin d def, IFG. Also follows with mental health provider for a history of alcohol abuse, anxiety and depression. Recently we have been working to get better control of her seizures. More seizure activity had been reported. Seizure activity seems to be some better. Episodes of seizures seem to be less in severity, per patient just small seizures and not occurring as often. Has not followed up with neuro. Tried to get CT done due to anxiety/fear with MRI but also could not tolerate the CT but had taken the Valium when she arrived for the exam. More issues lately with general anxiety, some panic attacks. Her medications were reviewed today and her list is now up to date. Medications Current Outpatient Medications Medication Sig Phenytoin Sodium Extended 200 mg ER capsule Take 1 capsule by mouth daily at bedtime. albuterol HFA (PROAIR HFA) 90 mcg/actuation inhaler Inhale 2 Puffs as instructed every 4 hours as needed. fluticasone-salmeterol (ADVAIR DISKUS) 500-50 mcg/dose dsdv Inhale 1 Puff as instructed two times a day. Rinse mouth after use. venlafaxine ER (EFFEXOR XR) 150 mg 24 hr capsule Take 1 capsule by mouth once daily. Lactobacillus acidoph-pectin (ACIDOPHILUS-PECTIN) 75 million cell -100 mg cap Take 1 capsule by mouth once daily. levothyroxine (SYNTHROID) 25 mcg tablet Take 1 tablet by mouth once daily. Cholecalciferol, Vitamin D3, 25 mcg (1,000 unit) cap Take 1 capsule by mouth once daily. meloxicam (MOBIC) 15 mg tablet Take 1 tablet by mouth once daily as needed for pain. for pain. Take with food. diazePAM (VALIUM) 10 mg tablet Take 1 tablet by mouth as directed for 1 day. Take first pill 30 minutes to 1 hour before procedure and then second pill as need leading up to procedure for anxiety. iv contrast (will be provided with radiology test) CT Brain WO/W - No IV access, insert saline lock prior to the sedation, infusion, injection for imaging exam. Discontinue saline lock post exam. If Pt. has a central line or IVAD, may access for administration according to line specific nursing protocol. Once exam is complete flush line and de-access according to line specific nursing protocol in the CT contrast administration guidelines link. lamoTRIgine (LAMICTAL) 25 mg tablet Take 1 tablet by mouth two times a day. phenytoin ER 300 mg ER capsule Take 1 capsule by mouth once daily. take in the morning No current facility-administered medications for this visit. ALLERGIES Allergen Reactions Quetiapine Other: See Comments Seizures Aspirin Other: See Comments, Unknown Fish Containing Pro* Unknown, Other: See Comments Pear Hives Shellfish Derived Hives Trazodone Contraindication-Medic al Surgical, Other: See Comments triggers my seizures Erythromycin Vomiting Other reaction(s): Nausea And Vomiting Latex Rash, Itching ACTIVE PROBLEM LIST Obesity, Class II, Bmi 35-39.9 - 10/19/2023 Colitis - 06/21/2022 Obesity, Class III, BMI >= 40 - 05/24/2022 Hypothyroidism - 05/24/2022 Seizure Disorder (Hcc) - 05/24/2022 Major Depression, Recurrent (Hcc) - 08/25/2021 Depressive Disorder - 02/25/2007 Anxiety - 02/25/2007 History of Alcohol Abuse - 02/25/2007 Social History Tobacco Use Smoking status: Every Day Packs/day: 0.50 Years: 18.00 Additional pack years: 0.00 Total pack years: 9.00 Types: Cigarettes Smokeless tobacco: Never Tobacco comments: 'a few per day' Substance Use Topics Alcohol use: Yes Alcohol/week: 3.0 standard drinks of alcohol Types: 3 Cans of Beer (12oz) per week Drug use: No Review of Systems Constitutional: Negative. Respiratory: Negative. Cardiovascular: Negative. Neurological: Positive for seizures. OBJECTIVE BP 104/80 Pulse 64 Resp 12 Wt 200 lb (90.7kg) LMP 10/19/2023 Physical Exam Vitals and nursing note reviewed. Constitutional: General: She is awake. She is not in acute distress. Appearance: Normal appearance. She is well-developed and well-groomed. She is not ill-appearing, toxic-appearing or diaphoretic. HENT: Head: Normocephalic. Right Ear: External ear normal. Left Ear: External ear normal. Nose: Nose normal. Eyes: General: (more content not included)... [facility] (INTMWS[facility] YANIRACATHY Atkins ([id number]) 1975 F Date Time Provider Department 10/19/23 JORGE MADDEN INTWS During your visit today, we recorded the following information about you: Jennifer Castillo RN 10/19/2023 3:02 PM Signed Kourtney with [employer] called in and wanted to notify the provider of an interaction between two medications the Pt is on. She states the was just put on Lamotrigine 25 mg 1 tab by mouth BID and is also on Phenytoin ER 300 mg 1 capsule in the morning and Phenytoin ER 200 mg 1 capsule at bedtime. These two medications together can cause arrhythmias. She just wanted to make sure the provider knew this prior to starting the medications together. Jorge Madden APRN.PLANT OPERATIONS MANAGER 10/19/2023 3:03 PM Signed Yes, please return call and let them know okay to start the low dose of Lamictal to try and get better control of her seizures. Jennifer Castillo RN 10/19/2023 3:17 PM Signed Kourtney with [employer] called and is notified of providers message and instructions. She voices understanding. Jennifer Castillo RN Allergies As of Date: 10/19/2023 Noted Allergy Reaction QUETIAPINE 01/18/2022 14 - Other: See Comments Comments: Seizures ASPIRIN 05/02/2021 14 - Other: See Comments 16 - Unknown FISH CONTAINING PRODUCTS 05/02/2021 16 - Unknown 14 - Other: See Comments PEAR 02/07/2017 4 - Hives SHELLFISH DERIVED 01/10/2022 4 - Hives TRAZODONE 05/02/2021 15 - Contraindication-Medic al [place]*14 - Other: See Comments Comments: triggers my seizures ERYTHROMYCIN 07/05/2006 11 - Vomiting Comments: Other reaction(s): Nausea And Vomiting LATEX 07/19/2006 2 - Rash 9 - Itching Date Reviewed: 10/19/2023 Reviewed by: Jorge Madden APRN.PLANT OPERATIONS MANAGER - Fully Assessed Reason for Visit: Medication Problem [65] Prescriptions as of 10/19/2023 - diazePAM (VALIUM) 10 mg tablet Take 1 tablet by mouth as directed for 1 day. Take first pill 30 minutes to 1 hour before procedure and then second pill as need leading up to procedure for anxiety. - iv contrast (will be provided with radiology test) CT Brain WO/W - No IV access, insert saline lock prior to the sedation, infusion, injection for imaging exam. Discontinue saline lock post exam. If Pt. has a central line or IVAD, may access for administration according to line specific nursing protocol. Once exam is complete flush line and de-access according to line specific nursing protocol in the CT contrast administration guidelines link. - lamoTRIgine (LAMICTAL) 25 mg tablet Take 1 tablet by mouth two times a day. - Phenytoin Sodium Extended 200 mg ER capsule Take 1 capsule by mouth daily at bedtime. - phenytoin ER 300 mg ER capsule Take 1 capsule by mouth once daily. take in the morning - albuterol HFA (PROAIR HFA) 90 mcg/actuation inhaler Inhale 2 Puffs as instructed every 4 hours as needed. - fluticasone-salmeterol (ADVAIR DISKUS) 500-50 mcg/dose dsdv Inhale 1 Puff as instructed two times a day. Rinse mouth after use. - venlafaxine ER (EFFEXOR XR) 150 mg 24 hr capsule Take 1 capsule by mouth once daily. - Lactobacillus acidoph-pectin (ACIDOPHILUS-PECTIN) 75 million cell -100 mg cap Take 1 capsule by mouth once daily. - levothyroxine (SYNTHROID) 25 mcg tablet Take 1 tablet by mouth once daily. - Cholecalciferol, Vitamin D3, 25 mcg (1,000 unit) cap Take 1 capsule by mouth once daily. - meloxicam (MOBIC) 15 mg tablet Take 1 tablet by mouth once daily as needed for pain. for pain. Take with food. Meds Comments as of 04/12/2007: All medications have been reviewed today/April 12, 2007 Lynda Hardin Lpn Problem List As Of Date 10/19/2023 Noted Resolved SUPRV HIGH-RISK PREG NOS [O09.90] 07/19/2006 07/25/2006 Personal history of pre-term labor [Z87.51] 07/25/2006 05/24/2022 Supervision of other high-risk (V23.89*07/2505/24/2022 Depressive disorder [F32.A] 02/25/2007 Anxiety [F41.9] 02/25/2007 History of alcohol abuse [F10.11] 02/25/2007 Obesity, Class III, BMI >= 40 [E66.01] 05/24/2022 Major depression, recurrent (HCC) [F33.9] 08/25/2021 Severe major depression, single episode (HCC) [*01/18/2022 05/24/2022 Hypothyroidism [E03.9] 05/24/2022 Seizure disorder (HCC) [G40.909] 05/24/2022 Colitis [K52.9] 06/21/2022 Obesity, Class II, BMI 35-39.9 [E66.9] 10/19/2023 Encounter Status:Closed by JENNIFER CASTILLO on 10/19/23 Normal [facility] Comprehensive metabolic 2000 panelon 10-19-2023 Albumin [Mass/Vol] 4.2 g/dL Normal 3.9-4.9 [facility] Comment on above: Order Comment: Speci men Type: BLOOD SPECIMENOrdering Facility: [facility] Address: [address] [place] [address] Performed By: #### 2 4323-8, 6-3 ####[facility] LABCLIA [id number] [place] [address] [place] ALP [Catalytic activity/Vol] 191 U/L High 34-123 [facility] Comment on above: Order Comment: Speci men Type: BLOOD SPECIMENOrdering Facility: [facility] Address: [address] [place] [address] Performed By: #### 2 4323-8, 3016-3 ####[facility] LABCLIA [id number] [place] [address] [place] ALT [Catalytic activity/Vol] 17 U/L Normal 7-38 [facility] Comment on above: Order Comment: Speci men Type: BLOOD SPECIMENOrdering Facility: [facility] Address: [address] [id number] Performed By: #### 2 4323-8, 6-3 ####[facility] LABCLIA [id number] [address] [address] [place] Anion gap [Moles/Vol] 14 mmol/L Normal 8-15 [facility] Comment on above: Order Comment: Speci men Type: BLOOD SPECIMENOrdering Facility: [facility] Address: [address] [place], [place] [id number] Performed By: #### 2 4323-8, 3015-3 ####[facility] LABCLIA [id number] [place] [address] [place] AST [Catalytic activity/Vol] 20 U/L Normal 13-35 [facility] Comment on above: Order Comment: Speci men Type: BLOOD SPECIMENOrdering Facility: [facility] Address: [address] [place] [address] Performed By: #### 2 4323-8, 3015-3 ####[facility] LABCLIA [id number] [place] [address] [place] Bilirubin [Mass/Vol] 0.3 mg/dL Normal 0.2-1.3 [facility] Comment on above: Order Comment: Speci men Type: BLOOD SPECIMENOrdering Facility: [facility] Address: [address] [id number] Performed By: #### 2 4323-8, 6-3 ####[facility] LABCLIA [id number] [place] [address] [place] Calcium [Mass/Vol] 9.5 mg/dL Normal 8.5-10.2 [facility] Comment on above: Order Comment: Speci men Type: BLOOD SPECIMENOrdering Facility: [facility] Address: [address] [place] [address] Performed By: #### 2 4323-8, 3016-3 ####[facility] LABCLIA [id number] [address] [address] [place] Chloride [Moles/Vol] 102 mmol/L Normal 98-107 [facility] Comment on above: Order Comment: Speci men Type: BLOOD SPECIMENOrdering Facility: [facility] Address: [address] [place] [address] Performed By: #### 2 4323-8, 6-3 ####[facility] LABCLIA [id number] [place] [address] [place] CO2 [Moles/Vol] 23 mmol/L Normal 22-30 [facility] Comment on above: Order Comment: Speci men Type: BLOOD SPECIMENOrdering Facility: [facility] Address: [address] [place] [address] Performed By: #### 2 4323-8, 6-3 ####[facility] LABCLIA [id number] [place] [address] [place] Creatinine [Mass/Vol] 0.59 mg/dL Normal 0.58-0.96 [facility] Comment on above: Order Comment: Speci men Type: BLOOD SPECIMENOrdering Facility: [facility] Address: [address] [place] [address] Performed By: #### 2 4323-8, 6-3 ####[facility] LABCLIA [id number] [address] [address] [place] Creatinine and Glomerular filtration rate.predicted panel (S/P/Bld) 112 mL/min/1.73m??? Normal >=60 [facility] Comment on above: Order Comment: Speci men Type: BLOOD SPECIMENOrdering Facility: [facility] Address: [address] [place] [address] Result Comment: Lindsey mated Glomerular Filtration Rate (eGFR) is calculated using the 2020 CKD-EPI creatinine equation. This equation utilizes serum creatinine, sex, and age as parameters. The creatinine assay has traceable calibration to isotope dilution-mass spectrometry. Refer to KDIGO guidelines for clinical interpretation. In patients with unstable renal function, e.g. those with acute kidney injury, the eGFR may not accurately reflect actual GFR. Performed By: #### 2 4323-8, 6-3 ####[facility] LABCLIA [id number] [place] [address] [place] Glucose [Mass/Vol] 75 mg/dL Normal 74-99 [facility] Comment on above: Order Comment: Speci men Type: BLOOD SPECIMENOrdering Facility: [facility] Address: [address] [place] [address] Result Comment: The [place] Diabetes Association (ADA) provides guidance for cutoff values for fasting glucose and random glucose. The ADA defines fasting as no caloric intake for at least 8 hours. Fasting plasma glucose results between 100 to 125 mg/dL indicate increased risk for diabetes (prediabetes). Fasting plasma glucose results greater than or equal to 126 mg/dL meet the criteria for diagnosis of diabetes. In the absence of unequivocal hyperglycemia, results should be confirmed by repeat testing. In a patient with classic symptoms of hyperglycemia or hyperglycemic crisis, random plasma glucose results greater than or equal to 200 mg/dL meet the criteria for diagnosis of diabetes. Reference: Standards of Medical Care in Diabetes 2016, [place] Diabetes Association. Diabetes Care. 2016.39(Suppl 1). Performed By: #### 2 4323-8, 3015-3 ####[facility] LABCLIA [id number] [place] [id number] [place] Potassium [Moles/Vol] 4.4 mmol/L Normal 3.7-5.1 [facility] Comment on above: Order Comment: Emmanuelle men Type: BLOOD SPECIMENOrdering Facility: [facility] Address: [address] [place] [address] Performed By: #### 2 4323-8, 3015-3 ####[facility] LABCLIA [id number] [place] [id number] [place] Protein [Mass/Vol] 6.9 g/dL Normal 6.3-8.0 [facility] Comment on above: Order Comment: Speci men Type: BLOOD SPECIMENOrdering Facility: [facility] Address: [address] [place] [address] Performed By: #### 2 4323-8, 3016-3 ####[facility] LABCLIA [id number] [place] [address] [place] Sodium [Moles/Vol] 139 mmol/L Normal 136-144 [facility] Comment on above: Order Comment: Speci men Type: BLOOD SPECIMENOrdering Facility: [facility] Address: [address] [place] [address] Performed By: #### 2 4323-8, 6-3 ####[facility] LABCLIA [id number] [place] [address] [place] Urea nitrogen [Mass/Vol] 6 mg/dL Low 7-21 [facility] Comment on above: Order Comment: Speci men Type: BLOOD SPECIMENOrdering Facility: [facility] Address: [address] [place] [address] Performed By: #### 2 4323-8, 6-3 ####[facility] LABCLIA [id number] [place] [address] [place] HbA1c (Bld)on 10-19-2023 Average glucose Estimated from glycated hemoglobin (Bld) [Mass/Vol] 100 mg/dL Normal [facility] Comment on above: Order Comment: Speci men Type: BLOOD SPECIMENOrdering Facility: [facility] Address: [address] [place] [address] Result Comment: eAG: (Estimated average glucose) is a calculated value from HgbA1c and is consumer sales representative of the average blood glucose level in the last 2-3 month period. Performed By: #### 5 5454-3 ####[facility] LABCLIA [id number] [address] [place] [facility] HbA1c (Bld) [Mass fraction] 5.1 % Normal 4.3-5.6 [facility] Comment on above: Order Comment: Emmanuelle oconnor Type: BLOOD SPECIMENOrdering Facility: [facility] Address: [address] [place] [address] Result Comment: [place] Diabetes Association guidelines indicate that patients with HgbA1c in the range 5.7-6.4% are at increased risk for development of diabetes, and intervention by lifestyle modification may be beneficial. HgbA1c greater or equal to 6.5% is considered diagnostic of diabetes. Performed By: #### 5 5454-3 ####[facility] LABCLIA [id number] [address] [place] Phenytoin SerPl-mCncon 10-18 Phenytoin [Mass/Vol] 8.0 ug/mL Low 10.0-20.0 [facility] Comment on above: Order Comment: Emmanuelle oconnor Type: BLOOD SPECIMENOrdering Facility: [facility] Address: [address] [place] [address] Result Comment: Refe rence ranges and high/low indicator flags are provided as general guidelines only. The treating physician must determine appropriate target levels/dosing based on the specific clinical situation. Performed By: #### 3 968-5 ####[facility] LABCLIA [id number] [place] [address] [place] TSH SerPl-aCncon 10-19-2023 TSH Qn 2.560 m[IU]/L Normal 0.270-4.20 0 [facility] Comment on above: Order Comment: Emmanuelle oconnor Type: BLOOD SPECIMENOrdering Facility: [facility] Address: [address] [place] [address] Result Comment: If t he patient is , TSH reference range varies by gestational period: First Trimester (weeks 9-12): 0.180-2.990 mIU/L Second Trimester: 0.110-3.980 mIU/L Third Trimester: 0.480-4.710 mIU/L Soren Fairchild et al. A Practical Approach for the Verifications and Determination of Site- and Trimester-Specific Reference Intervals for Thyroid Function tests in . Thyroid, 2019:29:3:412-420. Chepe Atkins, et al. 2017 Guidelines of the [place] Thyroid Association for the Diagnosis and Management of Thyroid Disease during and the . Thyroid, 2017:27:3:315-389. Performed By: #### 2 4323-8, 3016-3 ####[facility] LABIA [id number] [place] [address] [place] lamoTRIgine SerPl-mCncon lamoTRIgine [Mass/Vol] <0.5 Low 1.0-13.0 [facility] Comment on above: Order Comment: Speci men Type: BLOOD SPECIMENOrdering Facility: [facility] Address: [address] [place] [address] Result Comment: This test was developed and its performance characteristics determined by [facility]'s Floyd [facility] [place] ([facility]). It has not been cleared or approved by the FDA. [facility] is regulated under CLIA as qualified to perform high-complexity testing. This test is used for clinical purposes. It should not be regarded as investigational or for research. Performed By: #### 6 948-4 ####[facility] LABIA [id number] [place] [address] [place] Head WO and W contrast IV on 09-03-2023 IMPRESSION: Nondiagnostic examination, the patient was unable to tolerate imaging. Playground Monitor: DELANO Transcribe Date/Time: Sep 03 2023 11:39A Dictated by : COURTNEY RAINES MD This examination was interpreted and the report reviewed and electronically signed by: COURTNEY RAINES MD on Sep 03 2023 11:41AM [facility] DIVISION OF RADIOLOGY * * *Final Report* * * DATE OF EXAM: Sep 03 2023 11:29AM [facility] 0007 - CT BRAIN WO/W IVCON / PROCEDURE REASON: Seizure disorder (HCC) * * * * Physician Interpretation * * * * EXAMINATION: CT BRAIN WO/W IVCON CLINICAL HISTORY: New seizures TECHNIQUE: Serial axial images without IV contrast were attempted. Image quality is markedly degraded by motion, the patient was unable to tolerate imaging to anxiety and the study was terminated. MQ: CTBWOW_1 COMPARISON: None. RESULT: No acute hemorrhage or mass effect in the visualized brain. The visualized skull is unremarkable. DIVISION OF RADIOLOGY Provider, [facility] Altagracia [facility] - 09/03/2023 * * *Final Report* * * DATE OF EXAM: Sep 03 2023 11:29AM [facility] 0007 - CT BRAIN WO/W IVCON / PROCEDURE REASON: Seizure disorder (HCC) * * * * Physician Interpretation * * * * EXAMINATION: CT BRAIN WO/W IVCON CLINICAL HISTORY: New seizures TECHNIQUE: Serial axial images without IV contrast were attempted. Image quality is markedly degraded by motion, the patient was unable to tolerate imaging to anxiety and the study was terminated. MQ: CTBWOW_1 COMPARISON: None. RESULT: No acute hemorrhage or mass effect in the visualized brain. The visualized skull is unremarkable. IMPRESSION IMPRESSION: Nondiagnostic examination, the patient was unable to tolerate imaging. Playground [facility] Transcribe Date/Time: Sep 03 2023 11:39A Dictated by : COURTNEY RAINES MD This examination was interpreted and the report reviewed and electronically signed by: COURTNEY RAINES MD on Sep 03 2023 11:41AM [facility] Radiology Study observation (narrative) [facility] CT Head WO and W contrast IV Ordered By: [facility] Provider on 09-03-2023 [facility] PHENYTOIN/DILANTINon 024 Phenytoin [Mass/Vol] 15.1 ug/mL 10.0 - 20.0 ug/mL [facility] Comment on above: Reference ranges and high/low indicator flags are provided as general guidelines only. The treating physician must determine appropriate target levels/dosing based on the specific clinical situation. Phenytoin [Mass/Vol]on 08-05 Interpretation and review of laboratory results Normal [facility] 25-hydroxyvitamin D3 [Mass/V ol]on 07-20-2023 Interpretation and review of laboratory results Normal [facility] CBC W Auto Differential pane l (Bld)on 04-26-2024 Basophils (Bld) [#/Vol] 0.08 10*3/uL [facility] Basophils/100 WBC (Bld) 1.1 % C [facility] Differential cell count method Nom (Bld) Auto [facility] Eosinophils (Bld) [#/Vol] 0.26 10*3/uL [facility] Eosinophils/100 WBC (Bld) 3.6 % [facility] Erythrocyte distribution width (RBC) [Ratio] 13.2 % 11.5 - 15.0 % [facility] Hematocrit (Bld) [Volume fraction] 43.4 % 36.0 - 46.0 % [facility] Hemoglobin (Bld) [Mass/Vol] 14.0 g/dL 11.5 - 15.5 g/dL [facility] Immature granulocytes (Bld) [#/Vol] [facility] Immature granulocytes/100 WBC (Bld) 0.3 % [facility] Lymphocytes (Bld) [#/Vol] 2.94 10*3/uL [facility] Lymphocytes/100 WBC (Bld) 41.1 % [facility] MCH (RBC) [Entitic mass] 29.6 pg 26. 0 - 34.0 pg [facility] MCHC (RBC) [Mass/Vol] 32.3 g/dL 30.5 - 36.0 g/dL [facility] MCV (RBC) [Entitic vol] 91.8 fL 80.0 - 100.0 fL [facility] Monocytes (Bld) [#/Vol] 0.47 10*3/uL [facility] Monocytes/100 WBC (Bld) 6.6 % C [facility] Neutrophils (Bld) [#/Vol] 3.39 10*3/uL [facility] Neutrophils/100 WBC (Bld) 47.3 % [facility] Nucleated RBC (Bld) [#/Vol] [facility] Nucleated RBC/100 WBC (Bld) [Ratio] 0.0 % /100 WBC [facility] Platelet mean volume (Bld) [Entitic vol] 10.0 fL 9.0 - 12.7 fL [facility] Platelets (Bld) [#/Vol] 300 10*3/uL [facility] RBC (Bld) [#/Vol] 4.73 10*6/uL 3.90 - 5.20 m/uL [facility] WBC (Bld) [#/Vol] 7.16 10*3/uL [facility] Comprehensive metabolic 2000 panelon 07-20-2023 Albumin [Mass/Vol] 4.0 g/dL 3.9 - 4.9 g/dL [facility] ALP [Catalytic activity/Vol] 169 U/L High 34 - 123 U/L [facility] ALT [Catalytic activity/Vol] 14 U/L 7 - 38 U/L [facility] Anion gap [Moles/Vol] 9 mmol/L 9 - 18 mmol/L [facility] AST [Catalytic activity/Vol] 15 U/L 13 - 35 U/L [facility] Bilirubin [Mass/Vol] 0.3 mg/dL 0.2 - 1 .3 mg/dL [facility] Calcium [Mass/Vol] 9.2 mg/dL 8.5 - 10. 2 mg/dL [facility] Chloride [Moles/Vol] 103 mmol/L 97 - 10 5 mmol/L [facility] CO2 [Moles/Vol] 28 mmol/L 22 - 30 mmol/L [facility] Creatinine [Mass/Vol] 0.63 mg/dL 0.58 - 0.96 mg/dL [facility] GFR/1.73 sq M.predicted among non-blacks MDRD (S/P/Bld) [Vol rate/Area] 110 mL/min/{1.73_m2} - [facility] Comment on above: Estimated Glomerular Filtration Rate (eGFR) is calculated using the 2020 CKD-EPI creatinine equation. This equation utilizes serum creatinine, sex, and age as parameters. The creatinine assay has traceable calibration to isotope dilution-mass spectrometry. Refer to KDIGO guidelines for clinical interpretation. In patients with unstable renal function, e.g. those with acute kidney injury, the eGFR may not accurately reflect actual GFR. Glucose [Mass/Vol] 83 mg/dL 74 - 99 mg/dL [facility] Comment on above: The [place] Diabete s Association (ADA) provides guidance for cutoff values for fasting glucose and random glucose. The ADA defines fasting as no caloric intake for at least 8 hours. Fasting plasma glucose results between 100 to 125 mg/dL indicate increased risk for diabetes (prediabetes). Fasting plasma glucose results greater than or equal to 126 mg/dL meet the criteria for diagnosis of diabetes. In the absence of unequivocal hyperglycemia, results should be confirmed by repeat testing. In a patient with classic symptoms of hyperglycemia or hyperglycemic crisis, random plasma glucose results greater than or equal to 200 mg/dL meet the criteria for diagnosis of diabetes. Reference: Standards of Medical Care in Diabetes 2016, [place] Diabetes Association. Diabetes Care. 2016.39(Suppl 1). Interpretation and review of laboratory results Abnormal [facility] Potassium [Moles/Vol] 4.9 mmol/L 3.7 - 5.1 mmol/L [facility] Protein [Mass/Vol] 6.8 g/dL 6.3 - 8.0 g/dL [facility] Sodium [Moles/Vol] 140 mmol/L 136 - 144 mmol/L [facility] Urea nitrogen [Mass/Vol] 8 mg/dL 7 - 21 mg/dL [facility] FERRITINon 07-20-2023 Ferritin [Mass/Vol] 102.0 ng/mL 14.7 - 205.1 ng/mL [facility] HbA1c (Bld)on 07-20-2023 Average glucose Estimated from glycated hemoglobin (Bld) [Mass/Vol] 100 mg/dL [facility] Comment on above: eAG: (Estimated aver age glucose) is a calculated value from HgbA1c and is consumer sales representative of the average blood glucose level in the last 2-3 month period. HbA1c (Bld) [Mass fraction] 5.1 % 4.3 - 5.6 % [facility] Comment on above: [place] Diabetes As sociation guidelines indicate that patients with HgbA1c in the range 5.7-6.4% are at increased risk for development of diabetes, and intervention by lifestyle modification may be beneficial. HgbA1c greater or equal to 6.5% is considered diagnostic of diabetes. [facility] Iron and Iron binding capaci ty panelon 07-20-2023 Interpretation and review of laboratory results Normal [facility] Iron [Mass/Vol] 147 ug/dL 41 - 186 ug/dL [facility] Iron binding capacity [Mass/Vol] 293 ug/dL 232 - 386 ug/dL [facility] Iron/TIBC [Molar ratio] 50.2 % 15.0 - 57.0 % [facility] No Panel Informationon 07-19 Interpretation and review of laboratory results Normal [facility] Interpretation and review of laboratory results Normal [facility] PHENYTOIN/DILANTINon 024 Phenytoin [Mass/Vol] 16.6 ug/mL 10.0 - 20.0 ug/mL [facility] Comment on above: Reference ranges and high/low indicator flags are provided as general guidelines only. The treating physician must determine appropriate target levels/dosing based on the specific clinical situation. Phenytoin [Mass/Vol]on 07-19 Interpretation and review of laboratory results Normal [facility] T3, FREEon 07-20-2023 Free T3 [Mass/Vol] 2.5 pg/mL 2.3 - 4.1 pg/mL [facility] T4 FREE/FREE THYROXINEon Free T4 [Mass/Vol] 1.0 ng/dL 0.9 - 1.7 ng/dL [facility] THYROID STIMULATING HORMONEo n 07-20-2023 TSH Qn 2.430 m[IU]/L [facility] Comment on above: If the patient is pr egnant, TSH reference range varies by gestational period: First Trimester (weeks 9-12): 0.180-2.990 mIU/L Second Trimester: 0.110-3.980 mIU/L Third Trimester: 0.480-4.710 mIU/L Soren Fairchild, et al. A Practical Approach for the Verifications and Determination of Site- and Trimester-Specific Reference Intervals for Thyroid Function tests in . Thyroid, 2019:29:3:412-420. Chepe Atkins, et al. 2017 Guidelines of the [place] Thyroid Association for the Diagnosis and Management of Thyroid Disease during and the . Thyroid, 2017:27:3:315-389. VITAMIN D 25 HYDROXYon 07-19 25-hydroxyvitamin D3 [Mass/Vol] 40.1 ng/mL 31.0 - 80.0 ng/mL [facility] No Panel Informationon 06-03 [facility] XR Shoulder - left 3 Viewson 04-22-2023 IMPRESSION: No acute fractures seen of the left shoulder Playground Monitor: DELANO Transcribe Date/Time: Apr 22 2023 5:02P Dictated by : AMENA VELEZ MD This examination was interpreted and the report reviewed and electronically signed by: AMENA VELEZ MD on Apr 22 2023 5:02PM [facility] DIVISION OF RADIOLOGY * * *Final Report* * * DATE OF EXAM: Apr 20 2023 11:06AM WOX 5252 - XR SHLDR >/=3V AP/LAURO AP/OTHR LT / PROCEDURE REASON: multiple diagnoses * * * * Physician Interpretation * * * * XR SHLDR >/=3V AP/LAURO AP/OTHR LT PROVIDED HISTORY: Chronic left shoulder pain Chronic left shoulder pain COMPARISON: No previous similar exams are available for comparison TECHNIQUE: 3 views RESULT: Bony mineralization within normal limits. Osseous alignment appears intact. No acute fracture or radiopaque foreign body is seen DIVISION OF RADIOLOGY Provider, [facility] - 04/22/2023 * * *Final Report* * * DATE OF EXAM: Apr 20 2023 11:06AM WOX 5252 - XR SHLDR >/=3V AP/LAURO AP/OTHR LT / PROCEDURE REASON: multiple diagnoses * * * * Physician Interpretation * * * * XR SHLDR >/=3V AP/LAURO AP/OTHR LT PROVIDED HISTORY: Chronic left shoulder pain Chronic left shoulder pain COMPARISON: No previous similar exams are available for comparison TECHNIQUE: 3 views RESULT: Bony mineralization within normal limits. Osseous alignment appears intact. No acute fracture or radiopaque foreign body is seen IMPRESSION IMPRESSION: No acute fractures seen of the left shoulder Playground Monitor: DELANO Transcribe Date/Time: Apr 22 2023 5:02P Dictated by : AMENA VELEZ MD This examination was interpreted and the report reviewed and electronically signed by: AMENA VELEZ MD on Apr 22 2023 5:02PM EST [facility] XR Shoulder - left 3 ViewsOr dered By: [facility] Provider on 04-22-2023 [facility] XR Shoulder - left 3 Viewson 04-20-2023 Radiology Study observation (narrative) [facility] CBC W Auto Differential pane l (Bld)on 01-19-2023 Basophils (Bld) [#/Vol] 0.06 10*3/uL <0.11 k/uL [facility] Basophils/100 WBC (Bld) 0.7 % [facility] Differential cell count method Nom (Bld) Auto [facility] Eosinophils (Bld) [#/Vol] 0.24 10*3/uL <0.46 k/ uL [facility] Eosinophils/100 WBC (Bld) 3.0 % [facility] Erythrocyte distribution width (RBC) [Ratio] 13.0 % 11.5 - 15.0 % [facility] Hematocrit (Bld) [Volume fraction] 43.7 % 36.0 - 46.0 % [facility] Hemoglobin (Bld) [Mass/Vol] 14.7 g/dL 11.5 - 15.5 g/dL [facility] Immature granulocytes (Bld) [#/Vol] <0.10 k/uL [facility] Immature granulocytes/100 WBC (Bld) 0.1 % [facility] Lymphocytes (Bld) [#/Vol] 3.36 10*3/uL 1. 00 - 4.00 k/uL [facility] Lymphocytes/100 WBC (Bld) 41.6 % [facility] MCH (RBC) [Entitic mass] 30.1 pg 26. 0 - 34.0 pg [facility] MCHC (RBC) [Mass/Vol] 33.6 g/dL 30.5 - 36.0 g/dL [facility] MCV (RBC) [Entitic vol] 89.5 fL 80.0 - 100.0 fL [facility] Monocytes (Bld) [#/Vol] 0.47 10*3/uL <0.87 k/uL [facility] Monocytes/100 WBC (Bld) 5.8 % [facility] Neutrophils (Bld) [#/Vol] 3.93 10*3/uL 1. 45 - 7.50 k/uL [facility] Neutrophils/100 WBC (Bld) 48.8 % [facility] Nucleated RBC (Bld) [#/Vol] <0.01 k/uL [facility] Nucleated RBC/100 WBC (Bld) [Ratio] 0.0 /100 WBC [facility] Platelet mean volume (Bld) [Entitic vol] 9.9 fL 9.0 - 12.7 fL [facility] Platelets (Bld) [#/Vol] 351 10*3/uL 150 - 400 k/uL [facility] RBC (Bld) [#/Vol] 4.88 10*6/uL 3.90 - 5.20 m/uL [facility] WBC (Bld) [#/Vol] 8.07 10*3/uL 3.70 - 11.00 k/uL [facility] PHENYTOIN/DILANTINon 10-27-2 023 Phenytoin [Mass/Vol] 11.9 ug/mL 10.0 - 20.0 ug/mL [facility] XR CHEST 2V FRONTAL/LATon [facility] XR Chest PA and Lateralon IMPRESSION: No acute radiographic abnormality. Playground Monitor: DELANO Transcribe Date/Time: Dec 04 2022 8:59A Dictated by : ASUNCION BHATT MD This examination was interpreted and the report reviewed and electronically signed by: ASUNCION BHATT MD on Dec 04 2022 9:00AM [facility] DIVISION OF RADIOLOGY * * *Final Report* * * DATE OF EXAM: Dec 04 2022 8:58AM WOX 5291 - XR CHEST 2V FRONTAL/LAT / PROCEDURE REASON: Subacute cough * * * * Physician Interpretation * * * * EXAMINATION: CHEST RADIOGRAPH (2 VIEW FRONTAL & LATERAL) CLINICAL HISTORY: Subacute cough MQ: XC2_6 EXAM DATE/TIME: 12/04/2022 8:58 AM COMPARISON: No relevant prior studies available. RESULT: Lines, tubes, and devices: None. Lungs and pleura: No consolidation. No lung mass. No pleural effusion. No pneumothorax. Cardiomediastinal silhouette: Normal cardiomediastinal silhouette. Bones and soft tissues: Unremarkable. DIVISION OF RADIOLOGY Provider, [facility] - 12/04/2022 * * *Final Report* * * DATE OF EXAM: Dec 04 2022 8:58AM WOX 5291 - XR CHEST 2V FRONTAL/LAT / PROCEDURE REASON: Subacute cough * * * * Physician Interpretation * * * * EXAMINATION: CHEST RADIOGRAPH (2 VIEW FRONTAL & LATERAL) CLINICAL HISTORY: Subacute cough MQ: XC2_6 EXAM DATE/TIME: 12/04/2022 8:58 AM COMPARISON: No relevant prior studies available. RESULT: Lines, tubes, and devices: None. Lungs and pleura: No consolidation. No lung mass. No pleural effusion. No pneumothorax. Cardiomediastinal silhouette: Normal cardiomediastinal silhouette. Bones and soft tissues: Unremarkable. IMPRESSION IMPRESSION: No acute radiographic abnormality. Playground Monitor: DELANO Transcribe Date/Time: Dec 04 2022 8:59A Dictated by : ASUNCION BHATT MD This examination was interpreted and the report reviewed and electronically signed by: ASUNCION BHATT MD on Dec 04 2022 9:00AM EST [facility] Radiology Study observation (narrative) [facility] XR Chest PA and LateralOrder ed By: [facility] Provider on 12-04-2022 [facility] No Panel InformationOrdered By: Nahomy Soriano on 10-23-2022 Thyroid Stimulating Hormone (TSH) 1.40 uIU/mL 0.358-3.74 [facility] Influenza virus A and B and SARS-CoV-2 (COVID-19) Ag panel - Upper respiratory specimOrdered By: Tino Brantley on 09-28-2022 SARS-CoV-2 (COVID-19) RNA FLOR+probe Ql (Resp) [facility] CT ABD/PEL W IVCONon 023 Radiology Result ACTIONABLE Abnormal [facility] PHENYTOIN/DILANTINon 023 Phenytoin [Mass/Vol] 20.5 ug/mL High 10.0 - 20.0 ug/mL [facility] CT ABDOMEN PELVIS WITH ORAL CONTRAST ONLYon 01-19-2022 CT ABDOMEN PELVIS WITH ORAL CONTRAST ONLY EXAMINATION: CT ABDOMEN PELVIS WITH ORAL CONTRAST ONLY HISTORY: ORDERING SYSTEM PROVIDED HISTORY: right upper abdominal pain radiating to umbilicus, history colitis, TECHNOLOGIST PROVIDED HISTORY: Illness/Other Reason for exam: right upper abdominal pain radiating to umbilicus, history colitis Encounter Type: Initial Additional signs and symptoms: ORDERING SYSTEM PROVIDED DIAGNOSIS CODES: COMPARISON: None. TECHNIQUE: CT examination of the abdomen and pelvis without IV contrast. Coronal and sagittal reformations were performed. Dose reduction techniques were achieved by using automated exposure control and/or adjustment of mA and/or kV according to patient size and/or use of iterative reconstruction technique. LUNG BASES Clear lung bases. ABDOMEN Unremarkable liver, gallbladder, pancreas, spleen, adrenal glands, and left kidney. 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 No nephrolithiasis or hydronephrosis. Normal caliber bowel without wall thickening or inflammation. Normal appendix. Nonaneurysmal abdominal aorta No abdominal adenopathy or ascites. PELVIS Fluid-filled dilated cervical canal measuring 10 mm. Unremarkable ovaries and bladder. No free pelvic fluid or adenopathy. MSK No acute osseous abnormality or suspicious osseous lesion. IMPRESSION: 1. No acute abdominal or pelvic process identified. 2. Fluid-filled dilated cervical canal. Recommend further evaluation with pelvic exam to assess for a potential underlying cervical lesion. 3. 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 Workstation ID: [id number] Dictated by: FATIMAH CASTILLO on SunJan 20, 2022 8:44:41 AM EDT Transcribed by: FATIMAH CASTILLO on SunJan 20, 2022 8:44:41 AM EDT Finalized by: FATIMAH CASTILLO on SunJan 20, 2022 8:44:41 AM EDT [facility] Comment on above: Order Comment: Injur y/Trauma or Illness?:Illness/Other How long have you had these symptoms (acute/chronic)?:Acute Reason for exam?:right upper abdominal pain radiating to umbilicus, history colitis Type of Exam?:Initial Additional signs and symptoms?: XR CHEST PA/APon 01-18-2022 XR CHEST PA/AP EXAMINATION: XR CHEST PA/AP HISTORY: ORDERING SYSTEM PROVIDED HISTORY: SOB, cough, TECHNOLOGIST PROVIDED HISTORY: Illness/Other Reason for Exam: SOB; cough Cancer History: Unknown Surgery, Radiation History: Unknown Encounter Type: Initial Additional Signs and Symptoms: ORDERING SYSTEM PROVIDED DIAGNOSIS CODES: COMPARISON: None. FINDINGS: AP portable upright view. MEDIASTINUM: Cardiac silhouette is within normal limits. LUNGS AND PLEURA: Lungs, pleural spaces and pulmonary vasculature are within normal limits. OSSEOUS STRUCTURES AND SOFT TISSUES: No acute osseous abnormality. IMPRESSION: 1. No acute cardiopulmonary abnormality. VKR/vrs Workstation ID: [id number] Dictated by: WILMER MEHTA on SunJan 18, 2022 8:02:19 PM EDT Transcribed by: STEVE SCHULER on SunJan 18, 2022 8:11:42 PM EDT Finalized by: WILMER MEHTA on SunJan 19, 2022 12:15:17 PM EDT [facility] Comment on above: Order Comment: Injur y/Trauma or Illness?:Illness/Other How long have you had these symptoms (acute/chronic)?:Acute Reason for exam?:sob; cough History of cancer?:unknown Surgeries, chemotherapy, or radiation?:unknown Type of Exam?:Initial Additional signs and symptoms?: Absolute lymphocyte counton 01-17-2022 Lymphocytes Auto (Unsp spec) [#/Vol] 5.20 10*3/uL 0.83-4.51 [facility] Work Phone: [phone] Basophil percentageon 2021 Basophils/100 WBC (Bld) 0.5 % 0-1 [facility] Work Phone: [phone] Chloride [Moles/Vol] 108 mmol/L 98-107 [facility]: [phone] Eosinophils/100 WBC (Bld) 2.6 % 0-5 [facility] Work Phone: [phone] Glucose [Mass/Vol] 100 mg/dL 74-106 [facility] Work Phone: Comment on above: Fasting Glucose resu lt from 100 to 125 mg/dL suggests IMPAIRED HOMEOSTASIS per A.D.A. criteria. Neutrophils (Bld) [#/Vol] 5.0 10*3/uL 2.0-7.7 [facility] Work Phone: Neutrophils/100 WBC (Bld) 44.8 % 47-70 [facility] Work Phone: Potassium [Moles/Vol] 3.6 mmol/L 3.5-5.1 [facility] Work Phone: [phone] Sodium [Moles/Vol] 139 mmol/L 136-145 [facility] Work Phone: WBC (Bld) [#/Vol] 11.2 10*3/uL 4.4-11.0 [facility] Work Phone: Beta hCG serum qualon 2021 Beta HCG ( test) Ql Negative [facility] Work Phone: Blood erythrocytes count (nu mber/volume)on 01-17-2022 RBC (Bld) [#/Vol] 4.42 10*6/uL 4.2-5.4 [facility] Work Phone: Blood hemoglobin measurement (mass/volume)on 01-17-2022 Hemoglobin (Bld) [Mass/Vol] 13.1 g/dL 12.0-15.0 [facility] Work Phone: Blood lymphocytes/100 leukoc yteson 01-17-2022 Lymphocytes/100 WBC (Bld) 46.6 % 19-41 [facility] Work Phone: Blood manual differential co mment interpretation (narrative result)on 01-17-2022 Manual differential comment Mynor (Bld) [Interp] SCANNED [facility] Work Phone: Comment on above: LYMPHOCYTOSIS NOTED Blood monocytes/100 leukocyt eson 01-17-2022 Monocytes/100 WBC (Bld) 5.2 % 0-10 [facility] Work Phone: Blood platelet mean volumeon 01-17-2022 Platelet mean volume (Bld) [Entitic vol] 10.3 fL 6.2-12.0 [facility] Work Phone: Determination of erythrocyte mean corpuscular volume (MCV)on 01-17-2022 MCV (RBC) [Entitic vol] 86.7 fL 81-99 [facility] Work Phone: Hematocrit Auto (Bld) [Volum e fraction]on 01-17-2022 Hematocrit (Bld) [Volume fraction] 38.3 % 37-47 [facility] Work Phone: Laboratory - Chemistry and C hemistry - challengeon 01-17-2022 CO2 [Moles/Vol] 25.0 mmol/L 21.0-32.0 [facility] Work Phone: Urea nitrogen/Creatinine [Mass ratio] 15.6 mg/mg 10-20 [facility] Work Phone: Laboratory - Hematology and Cell countson 01-17-2022 Erythrocyte distribution width (RBC) [Entitic vol] 39.9 fL 35.1-43.9 [facility] Work Phone: Erythrocyte distribution width (RBC) [Ratio] 12.6 % 11.6-14.6 [facility] Work Phone: Immature granulocytes/100 WBC (Bld) 0.300 % 0.0-0.9 [facility] Work Phone: Comment on above: IG% - Immature Granu locytes (promyelocytes, myelocytes and metamyelocytes) > 1% indicates that a LEFT SHIFT is Present. MCH (RBC) [Entitic mass] 29.6 pg 27.0-32.0 [facility] Work Phone: Nucleated RBC/100 WBC (Bld) [Ratio] 0 % 0-5 [facility] Work Phone: MCHC Auto (RBC) [Mass/Vol]on 01-17-2022 MCHC (RBC) [Mass/Vol] 34.2 g/dL 32-36 [facility] Work Phone: No Panel Informationon 01-17 Estimated Creatinine Clearance Calc 113.40 ml/min [facility] Work Phone: Estimated GFR (MDRD) Amer 194 mL/min >60 [facility] Work Phone: Comment on above: GFR Calc Estimated GFR (MDRD) Non-Af Amer 160 mL/min >60 [facility] Work Phone: Comment on above: Non- GFR Calc Ethyl Alcohol Level < 3.0 mg/dL [facility] Work Phone: Comment on above: The serum:whole bloo d ethanol ratio is approximately 1.14and varies slightly with hematocrit. Medical Alcohol reference interval and critical value innon-tolerant individuals; 50 - 100 Impairment 100 Intoxication 100 - 250 Severe Poisoning 250 - 400 Deep/possible fatal coma Platelets bldon 01-17-2022 Platelets (Bld) [#/Vol] 274 10*3/uL 150-450 [facility] Work Phone: Serum or plasma calcium binh urement (mass/volume)on 01-17-2022 Calcium [Mass/Vol] 8.7 mg/dL 8.5-10.1 [facility] Work Phone: Serum or plasma creatinine m easurement (mass/volume)on 01-17-2022 Creatinine [Mass/Vol] 0.45 mg/dL 0.55-1.02 [facility] Work Phone: Comment on above: The validity of the calculated GFR & GFRAA in patients over 70 years has not been determined. Clinical correlation is essential. Serum or plasma urea nitroge n measurement (mass/volume)on 01-17-2022 Urea nitrogen [Mass/Vol] 7 mg/dL 7-18 [facility] Work Phone: Thin prep Papanicolaou smear with manual screeningon 01-17-2022 Thin prep Papanicolaou smear with manual screening 6 5-15 [facility] Work Phone: Laboratory - Drug toxicology on 01-16-2022 Amphetamines Ql (U) Negative <1000 ng/mL [facility] Work Phone: Benzodiazepines Ql (U) Negative < 200 ng/mL [facility] Work Phone: Cannabinoids Screen Ql (U) Negative < 50 ng/mL [facility] Work Phone: Cocaine Ql (U) Negative < 300 ng/mL [facility] Work Phone: Opiates Ql (U) Negative < 300 ng/mL [facility] Work Phone: No Panel Informationon 01-16 MDMA (Ecstasy) Screen Negative < 500 ng/mL [facility] Work Phone: Urine Barbiturates Screen Negative < 200 ng/mL [facility] Work Phone: Urine Drug Screen Comment [facility] Work Phone: Comment on above: CONFIRMATORY TESTING FOR ALL POSITIVE URINE DRUG SCREENRESULTS WILL ONLY BE SENT OUT UPON PHYSICIAN ORDER. VISTA Urine Drug Screen methods provide only preliminaryanalytical test results. A more specific alternate chemicalmethod must be used in order to obtain a confirmedanalytical result. Gas chromatography/mass spectrometery(GC/MS) is the preferred confirmatory method. Clinicalconsideration and professional judgement should be appliedto any drug of abuse test result, particularly whenpreliminary positive results are used. URINE TCA TESTING MUST BE ORDERED SEPARATELY. USE TESTMNEMONIC: [facility] Urine Methadone Screen Negative < 300 ng/mL [facility] Work Phone: Urine phencyclidine (PCP) de tectionon 01-16-2022 Phencyclidine Ql (U) Negative < 25 ng/mL [facility] Work Phone: Absolute lymphocyte counton 01-10-2022 Lymphocytes Auto (Unsp spec) [#/Vol] 2.12 10*3/uL 0.83-4.51 [facility] Work Phone: Basophil percentageon 2021 Basophils/100 WBC (Bld) 0.7 % 0-1 [facility] Work Phone: Bilirubin [Mass/Vol] 0.30 mg/dL 0.20-1.00 [facility] Work Phone: Comment on above: For patients on eltr ombopag therapy, use of Dimension [place] TBIL is not recommended. Chloride [Moles/Vol] 106 mmol/L 98-107 [facility] Work Phone: Eosinophils/100 WBC (Bld) 1.3 % 0-5 [facility] Work Phone: Glucose [Mass/Vol] 106 mg/dL 74-106 [facility] Work Phone: Comment on above: Fasting Glucose resu lt from 100 to 125 mg/dL suggests IMPAIRED HOMEOSTASIS per A.D.A. criteria. Neutrophils (Bld) [#/Vol] 6.0 10*3/uL 2.0-7.7 [facility] Work Phone: Neutrophils/100 WBC (Bld) 67.6 % 47-70 [facility] Work Phone: Potassium [Moles/Vol] 3.4 mmol/L 3.5-5.1 [facility] Work Phone: Protein [Mass/Vol] 7.3 g/dL 6.4-8.2 [facility] Work Phone: Sodium [Moles/Vol] 140 mmol/L 136-145 [facility] Work Phone: WBC (Bld) [#/Vol] 8.9 10*3/uL 4.4-11.0 [facility] Work Phone: Basophil percentage 5-10 SEEN /hpf 0-5 [facility] [facility] Work Phone: Beta hCG serum qualon 2021 Beta HCG ( test) Ql Negative [facility] Work Phone: Bilirubin Test strip Ql (U)o n 01-10-2022 Bilirubin Ql (U) Negative Negative [facility] Work Phone: Blood erythrocytes count (nu mber/volume)on 01-10-2022 RBC (Bld) [#/Vol] 4.92 10*6/uL 4.2-5.4 [facility] Work Phone: Blood hemoglobin measurement (mass/volume)on 01-10-2022 Hemoglobin (Bld) [Mass/Vol] 14.7 g/dL 12.0-15.0 [facility] Work Phone: Blood lymphocytes/100 leukoc yteson 01-10-2022 Lymphocytes/100 WBC (Bld) 23.8 % 19-41 [facility] Work Phone: Blood monocytes/100 leukocyt eson 01-10-2022 Monocytes/100 WBC (Bld) 6.3 % 0-10 [facility] Work Phone: Blood platelet mean volumeon 01-10-2022 Platelet mean volume (Bld) [Entitic vol] 10.3 fL 6.2-12.0 [facility] Work Phone: Determination of erythrocyte mean corpuscular volume (MCV)on 01-10-2022 MCV (RBC) [Entitic vol] 87.4 fL 81-99 [facility] Work Phone: Hematocrit Auto (Bld) [Volum e fraction]on 01-10-2022 Hematocrit (Bld) [Volume fraction] 43.0 % 37-47 [facility] Work Phone: Ketones Test strip Ql (U)on 01-10-2022 Ketones Ql (U) Negative Negative [facility] Work Phone: Laboratory - Chemistry and C hemistry - challengeon 01-10-2022 ALP [Catalytic activity/Vol] 159 U/L 45-117 [facility] Work Phone: ALT [Catalytic activity/Vol] 21 U/L 13-56 [facility] Work Phone: CO2 [Moles/Vol] 29.0 mmol/L 21.0-32.0 [facility] Work Phone: Globulin (S) [Mass/Vol] 3.8 g/dL 2.2-4.2 [facility] Work Phone: Urea nitrogen/Creatinine [Mass ratio] 8.0 mg/mg 10-20 [facility] Work Phone: Laboratory - Drug toxicology on 01-10-2022 Amphetamines Ql (U) Negative <1000 ng/mL [facility] Work Phone: Benzodiazepines Ql (U) Negative < 200 ng/mL [facility] Work Phone: Cannabinoids Screen Ql (U) Negative < 50 ng/mL [facility] Work Phone: Cocaine Ql (U) Negative < 300 ng/mL [facility] Work Phone: Opiates Ql (U) Negative < 300 ng/mL [facility] Work Phone: Laboratory - Hematology and Cell countson 01-10-2022 Erythrocyte distribution width (RBC) [Entitic vol] 40.1 fL 35.1-43.9 [facility] Work Phone: Erythrocyte distribution width (RBC) [Ratio] 12.6 % 11.6-14.6 [facility] Work Phone: Immature granulocytes/100 WBC (Bld) 0.300 % 0.0-0.9 [facility] Work Phone: Comment on above: IG% - Immature Granu locytes (promyelocytes, myelocytes and metamyelocytes) > 1% indicates that a LEFT SHIFT is Present. MCH (RBC) [Entitic mass] 29.9 pg 27.0-32.0 [facility] Work Phone: Nucleated RBC/100 WBC (Bld) [Ratio] 0 % 0-5 [facility] Work Phone: MCHC Auto (RBC) [Mass/Vol]on 01-10-2022 MCHC (RBC) [Mass/Vol] 34.2 g/dL 32-36 [facility] Work Phone: Mucus LM Ql (Urine sed)on Mucus Ql (Urine sed) 0 SEEN /hpf [facility] Work Phone: Nitrite Test strip Ql (U)on 01-10-2022 Nitrite Ql (U) Negative Negative [facility] Work Phone: No Panel Informationon 01-10 Estimated Creatinine Clearance Calc 82.31 ml/min [facility] Work Phone: Estimated GFR (MDRD) Amer 132 mL/min >60 [facility] Work Phone: Comment on above: GFR Calc Estimated GFR (MDRD) Non-Af Amer 109 mL/min >60 [facility] Work Phone: Comment on above: Non- GFR Calc Ethyl Alcohol Level < 3.0 mg/dL [facility] Work Phone: Comment on above: The serum:whole bloo d ethanol ratio is approximately 1.14and varies slightly with hematocrit. Medical Alcohol reference interval and critical value innon-tolerant individuals; 50 - 100 Impairment 100 Intoxication 100 - 250 Severe Poisoning 250 - 400 Deep/possible fatal coma MDMA (Ecstasy) Screen Negative < 500 ng/mL [facility] Work Phone: Urine Barbiturates Screen Negative < 200 ng/mL [facility] Work Phone: Urine Drug Screen Comment [facility] Work Phone: Comment on above: CONFIRMATORY TESTING FOR ALL POSITIVE URINE DRUG SCREENRESULTS WILL ONLY BE SENT OUT UPON PHYSICIAN ORDER. VISTA Urine Drug Screen methods provide only preliminaryanalytical test results. A more specific alternate chemicalmethod must be used in order to obtain a confirmedanalytical result. Gas chromatography/mass spectrometery(GC/MS) is the preferred confirmatory method. Clinicalconsideration and professional judgement should be appliedto any drug of abuse test result, particularly whenpreliminary positive results are used. URINE TCA TESTING MUST BE ORDERED SEPARATELY. USE TESTMNEMONIC: [facility] Urine Methadone Screen Negative < 300 ng/mL [facility] Work Phone: Platelets bldon 01-10-2022 Platelets (Bld) [#/Vol] 296 10*3/uL 150-450 [facility] Work Phone: Protein Test strip Ql (U)on 01-10-2022 Protein Ql (U) 15 mg/dl Negative [facility] Work Phone: Serum or plasma albumin binh urement (mass/volume)on 01-10-2022 Albumin [Mass/Vol] 3.5 g/dL 3.2-5.0 [facility] Work Phone: Serum or plasma albumin/glob ulin mass ratioon 01-10-2022 Albumin/Globulin [Mass ratio] 0.9 {ratio} 0.9-2.4 [facility] Work Phone: Serum or plasma calcium binh urement (mass/volume)on 01-10-2022 Calcium [Mass/Vol] 9.1 mg/dL 8.5-10.1 [facility] Work Phone: Serum or plasma creatinine m easurement (mass/volume)on 01-10-2022 Creatinine [Mass/Vol] 0.62 mg/dL 0.55-1.02 [facility] Work Phone: Comment on above: The validity of the calculated GFR & GFRAA in patients over 70 years has not been determined. Clinical correlation is essential. Serum or plasma urea nitroge n measurement (mass/volume)on 01-10-2022 Urea nitrogen [Mass/Vol] 5 mg/dL - [facility] Work Phone: Squamous epithelial cells de tection in urine sediment by light microscopyon 01-10-2022 Epithelial cells.squamous LM Ql (Urine sed) 5-10 SEEN /hpf 5-10 [facility] Work Phone: Thin prep Papanicolaou smear with manual screeningon 01-10-2022 Thin prep Papanicolaou smear with manual screening 13 U/L 15-37 [facility] Work Phone: Thin prep Papanicolaou smear with manual screening 5 5-15 [facility] Work Phone: Urine blood detectionon 12-24 RBC Ql (U) 25 /ul Negative [facility] Work Phone: RBC Ql (U) 5-10 SEEN /hpf 0-5 [facility] Work Phone: Urine clarityon 01-10-2022 Clarity (U) Sl. Cloudy Clear [facility] Work Phone: Urine color determinationon 01-10-2022 Color (U) Yellow Yellow [facility] Work Phone: Urine glucose detectionon Glucose Ql (U) Normal mg/dl Normal [facility] Work Phone: Urine leukocyte esterase det ection by dipstickon 01-10-2022 Leukocyte esterase Test strip Ql (U) 25 /ul Negative [facility] Work Phone: Urine pHon 01-10-2022 pH (U) 7.0 [pH] 5.0 - 8.0 [facility] Work Phone: Urine phencyclidine (PCP) de tectionon 01-10-2022 Phencyclidine Ql (U) Negative < 25 ng/mL [facility] Work Phone: Urine sediment bacteria coun t by microscopy (number/high power field)on 01-10-2022 Bacteria LM.HPF (Urine sed) [#/Area] 2 /[HPF] None Seen [facility] Work Phone: Urine specific gravity measu rementon 01-10-2022 Specific gravity (U) [Rel density] 1.010 1.002-1.03 0 [facility] Work Phone: Urobilinogen Auto test strip Ql (U)on 01-10-2022 Urobilinogen Ql (U) Normal mg/dl Normal [facility] Work Phone: CVFLURVon 10-25-2021 Date of Onset 20211016 Invalid Interpretation Code [facility] ([place]) Comment on above: Performed By: #### C K, CMP, GFR, TROPHS, ERDS #### [place] [address] Employed in Healthcare No [facility] ([place]) Comment on above: Performed By: #### C K, CMP, GFR, TROPHS, ERDS #### [place] [address] First Test No [facility] ([place]) Comment on above: Performed By: #### C K, CMP, GFR, TROPHS, ERDS #### [place] [address] FLU A PCR Negative Normal Negative [facility] ([place]) Comment on above: Result Comment: [place] [id number] Performed By: #### C K, CMP, GFR, TROPHS, ERDS #### [place] [address] FLU B PCR Negative Normal Negative [facility] ([place]) Comment on above: Result Comment: [place] s [id number] Performed By: #### C K, CMP, GFR, TROPHS, ERDS #### [place] [address] Hospitalized No [facility] ([place] Comment on above: Performed By: #### C K, CMP, GFR, TROPHS, ERDS #### [address] [facility] ([place] Comment on above: Performed By: #### C K, CMP, GFR, TROPHS, ERDS #### [address] [facility] ([place] Comment on above: Performed By: #### C K, CMP, GFR, TROPHS, ERDS #### [place] [address] Resides in Congregate Care Setting No [facility] ([place] Comment on above: Performed By: #### C K, CMP, GFR, TROPHS, ERDS #### [place] [address] RSV PCR Negative Normal Negative [facility] ([place]) Comment on above: Result Comment: [place] [id number] Performed By: #### C K, CMP, GFR, TROPHS, ERDS #### [place] [address] SARS-CoV-2 (COVID-19) RNA FLOR+probe Ql (Unsp spec) Negative Normal Negative [facility] ([place]) Comment on above: Result Comment: Note s [id number] This test has been authorized by FDA under an EUA for use by authorized laboratories and has not been FDA cleared or approved. Results from the Xpert Xpress SARS-CoV-2/Flu/RSV or Xpert Xpress SARS-CoV-2 only test should be correlated with the clinical history, epidemiological data, and other data available to the clinician evaluating the patient. Performance of the Xpert Xpress SARS-CoV-2/Flu/RSV or Xpert Xpress SARS-CoV-2 only test has only been established in nasopharyngeal swab specimens. Erroneous test results might occur from improper specimen collection; failure to follow the recommended sample collection, handling, and storage procedures; technical error; or sample mix-up. False negative results may occur if virus is present at levels below the analytical limit of detection. Viral nucleic acid may persist in vivo, independent of virus viability. Detection of analyte target(s) does not imply that the corresponding virus(es) are infectious or are the causative agents for clinical symptoms. Recent patient exposure to FluMist or other live attenuated influenza vaccines may cause inaccurate positive results. Performed By: #### C K, CMP, GFR, ADOLPH, GIANFRANCOS #### [address] [address] Symptomatic as Defined by CDC No Normal [facility] ([place] Comment on above: Performed By: #### C K, CMP, GFR, CRISTIANS, ERDS #### [address] [address] LABORATORYOrdered By: Altagracia Lindo on 10-25-2021 Date of Onset 20211016 Invalid Interpretation Code [facility] Auto Viro/Sero SS Employed in Healthcare No (10/25/21 11:26 AM) Invalid Interpretation Code [facility] Auto Viro/Sero SS First Test No (10/25/21 11:26 AM) Invalid Interpretation Code [facility] Auto Viro/Sero SS FLU A PCR Negative 6 (10/25/21 11:26 AM) Invalid Interpretation Code Negative [facility] Comment on above: Result Comment: [place] [id number] FLU B PCR Negative 8 (10/25/21 11:26 AM) Invalid Interpretation Code Negative [facility] Comment on above: Result Comment: [place] [id number] Hospitalized No (10/25/21 11:26 AM) Invalid Interpretation Code [facility] Auto Viro/Sero SS ICU No (10/25/21 11:26 AM) Invalid Interpretation Code [facility] Auto Viro/Sero SS Not (10/25/21 11:26 AM) Invalid Interpretation Code [facility] Auto Viro/Sero SS Resides in Congregate Care Setting No (10/25/21 11:26 AM) Invalid Interpretation Code [facility] Auto Viro/Sero SS RSV PCR Negative 10 (10/25/21 11:26 AM) Invalid Interpretation Code Negative [facility]Sero SS Comment on above: Result Comment: Note s [id number] SARS-CoV-2 (COVID-19) RNA FLOR+probe Ql (Unsp spec) Negative 4 (10/25/21 11:26 AM) Invalid Interpretation Code Negative [facility]Sero SS Comment on above: Result Comment: [place] s [id number] Symptomatic as Defined by CDC No (10/25/21 11:26 AM) Invalid Interpretation Code AH Auto Viro/Sero SS LABORATORYOrdered By: Mee Carter on 10-21-2021 Beta HCG ( test) Ql (U) Negative (10/21/21 6:14 PM) [facility] .Auto Diffon 10-16-2021 Basophil, Absolute 0.1 10 3/mcL Normal 0.0-0.3 [facility] ([place]) Comment on above: Performed By: #### C K, CMP, GFR, TROPHS, ERDS #### [address] [address] Basophils/100 WBC (Bld) 0.6 % Normal 0.0-2.5 A [facility] ([place]) Comment on above: Performed By: #### C K, CMP, GFR, TROPHS, ERDS #### [address] [address] Eosinophil, Absolute 0.3 10 3/mcL Normal 0.0-0.7 [facility] ([place]) Comment on above: Performed By: #### C K, CMP, GFR, TROPHS, ERDS #### [address] [address] Eosinophils/100 WBC (Bld) 1.8 % Normal 0.0-6.0 [facility] ([place]) Comment on above: Performed By: #### C K, CMP, GFR, TROPHS, ERDS #### [address] [address] Lymphocyte, Absolute 3.3 10 3/mcL Normal 0.9-4.3 [facility] ([place]) Comment on above: Performed By: #### C K, CMP, GFR, TROPHS, ERDS #### [address] [address] Lymphocytes/100 WBC (Bld) 20.4 % Normal 20.0-40.0 [facility] ([place]) Comment on above: Performed By: #### C K, CMP, GFR, TROPHS, ERDS #### [address] [address] Monocyte, Absolute 1.0 10 3/mcL Normal 0.1-1.4 [facility] ([place]) Comment on above: Performed By: #### C K, CMP, GFR, TROPHS, ERDS #### [address] [address] Monocytes/100 WBC (Bld) 6.1 % Normal 2.0-13.0 A [facility] ([place]) Comment on above: Performed By: #### C K, CMP, GFR, TROPHS, ERDS #### [address] [address] Neutrophils/100 WBC (Bld) 71.1 % Normal 50.0-75.0 [facility] ([place] Comment on above: Performed By: #### C K, CMP, GFR, TROPHS, ERDS #### [address] [address] .GFRon 10-16-2021 GFR >60 Normal [facility] ([place]) Comment on above: Result Comment: GFR Population mean for , Non- Americans Ages 20-29 = 116 mL/min/1.73 sq.m. Ages 30-39 = 107 mL/min/1.73 sq.m. Ages 40-49 = 99 mL/min/1.73 sq.m. Ages 50-59 = 93 mL/min/1.73 sq.m. Ages 60-69 = 85 mL/min/1.73 sq.m. Ages 70+ = 75 mL/min/1.73 sq.m. Chronic Kidney Disease: Less than 60 mL/min/1.73 square meters End Stage Renal Disease: Less than 15 mL/min/1.73 square meters Performed By: #### C K, CMP, GFR, TROPHS, ERDS #### [address] [address] GFR Non- >[address] [facility] ([place] Comment on above: Result Comment: GFR Population mean for , Non- Americans Ages 20-29 = 116 mL/min/1.73 sq.m. Ages 30-39 = 107 mL/min/1.73 sq.m. Ages 40-49 = 99 mL/min/1.73 sq.m. Ages 50-59 = 93 mL/min/1.73 sq.m. Ages 60-69 = 85 mL/min/1.73 sq.m. Ages 70+ = 75 mL/min/1.73 sq.m. Chronic Kidney Disease: Less than 60 mL/min/1.73 square meters End Stage Renal Disease: Less than 15 mL/min/1.73 square meters Performed By: #### C K, CMP, GFR, TROPHS, ERDS #### [address] [address] .MDWon 10-16-2021 Monocyte Distribution Width 16.83 Normal 0.00-20.00 [facility] ([place]) Comment on above: Result Comment: For ED adult patients suspected of sepsis, MDW<=20.0 does not rule out sepsis or risk of sepsis Performed By: #### C K, CMP, GFR, TROPHS, ERDS #### [place] [address] .NEUABSon 10-16-2021 Neutrophil, Absolute 11.6 10 3/mcL High 2.3-8.1 A [facility] ([place] Comment on above: Performed By: #### C K, CMP, GFR, TROPHS, ERDS #### [place] [address] CBCon 10-16-2021 Erythrocyte distribution width (RBC) [Ratio] 13.5 % Normal 11.5-15.5 [facility] ([place]) Comment on above: Performed By: #### C K, CMP, GFR, TROPHS, ERDS #### [place] [address] Hematocrit (Bld) [Volume fraction] 41.7 % Normal 34.0-46.0 [facility] ([place] Comment on above: Performed By: #### C K, CMP, GFR, TROPHS, ERDS #### [place] [address] Hgb 14.2 G/dL Normal 12.0-16.0 [facility] ([place] Comment on above: Performed By: #### C K, CMP, GFR, TROPHS, ERDS #### [place] [address] MCH (RBC) [Entitic mass] 29.5 pg Normal 27.0-33.0 [facility] ([place] Comment on above: Performed By: #### C K, CMP, GFR, TROPHS, ERDS #### [place] [address] MCHC 34.0 G/dL Normal 32.0-36.0 [facility] ([place]) Comment on above: Performed By: #### C K, CMP, GFR, TROPHS, ERDS #### [place] [address] MCV (RBC) [Entitic vol] 86.8 fL Normal 80.0-99.0 A [facility] ([place]) Comment on above: Performed By: #### C K, CMP, GFR, TROPHS, ERDS #### [place] [address] Platelet 306 10 3/mcL Normal 150-450 [facility] ([place]) Comment on above: Performed By: #### C K, CMP, GFR, TROPHS, ERDS #### [place] [address] Platelet mean volume (Bld) [Entitic vol] 7.6 fL Normal 6.6-10.5 [facility] ([place]) Comment on above: Performed By: #### C K, CMP, GFR, TROPHS, ERDS #### [place] [address] RBC 4.80 10 6/mcL Normal 4.10-5.30 [facility] ([place] Comment on above: Performed By: #### C K, CMP, GFR, TROPHS, ERDS #### [place] [address] WBC 16.3 10 3/mcL High 4.5-10.8 [facility] ([place]) Comment on above: Performed By: #### C K, CMP, GFR, TROPHS, ERDS #### [place] [address] CKon 10-16-2021 CK [Catalytic activity/Vol] 88 U/L Normal 7-185 [facility] ([place]) Comment on above: Result Comment: Spec imen slightly hemolyzed. Performed By: #### C K, CMP, GFR, TROPHS, ERDS #### [address] [address] CMPon 10-16-2021 Albumin Level 3.7 G/dL Normal 3.2-4.8 [facility] ([place]) Comment on above: Performed By: #### C K, CMP, GFR, TROPHS, ERDS #### [address] [address] Albumin/Globulin [Mass ratio] 1.1 {ratio} Normal 0.9-1.6 [facility] ([place]) Comment on above: Performed By: #### C K, CMP, GFR, TROPHS, ERDS #### [place] [id number] ALP [Catalytic activity/Vol] 142 U/L High 38-126 [facility] ([place]) Comment on above: Performed By: #### C K, CMP, GFR, TROPHS, ERDS #### [place] [id number] ALT [Catalytic activity/Vol] 20 U/L Normal 10-49 [facility] ([place] Comment on above: Performed By: #### C K, CMP, GFR, TROPHS, ERDS #### [place] [id number] AST [Catalytic activity/Vol] 21 U/L Normal 8-34 [facility] ([place] Comment on above: Performed By: #### C K, CMP, GFR, TROPHS, ERDS #### [place] [id number] Bili Total 0.30 mg/dL Normal 0.20-1.20 [facility] ([place]) Comment on above: Result Comment: Use of this assay is not recommended for patients undergoing treatment with eltrombopag due to the potential for falsely elevated results. Performed By: #### C K, CMP, GFR, TROPHS, ERDS #### [address] [address] BUN/Creatinine Ratio 13.1 ratio Normal 10.0-22.0 [facility] ([place]) Comment on above: Performed By: #### C K, CMP, GFR, TROPHS, ERDS #### [address] [address] Calcium [Mass/Vol] 9.4 mg/dL [facility] 8.7-10.4 [facility] Comment on above: Performed By: #### C K, CMP, GFR, TROPHS, ERDS #### [address] [address] Chloride [Moles/Vol] 111 mmol/L High 98-110 [facility] ([place]) Comment on above: Performed By: #### C K, CMP, GFR, TROPHS, ERDS #### [address] [address] CO2 [Moles/Vol] 27 mmol/L Normal 22-32 [facility] ([place] Comment on above: Performed By: #### C K, CMP, GFR, TROPHS, ERDS #### [place] [phone] Creatinine [Mass/Vol] 0.61 mg/dL Normal 0.50-1.20 [facility] ([place]) Comment on above: Performed By: #### C K, CMP, GFR, TROPHS, ERDS #### [address] [address] Electrolyte Balance 2.0 mEq/L Low 4.0-15.0 [facility] ([place]) Comment on above: Performed By: #### C K, CMP, GFR, TROPHS, ERDS #### [address] [address] Globulin 3.4 G/dL Normal 1.5-3.8 [facility] ([place]) Comment on above: Performed By: #### C K, CMP, GFR, TROPHS, ERDS #### [place] [phone] Glucose [Mass/Vol] 90 mg/dL Normal 70-110 [facility] [place] Comment on above: Performed By: #### C K, CMP, GFR, TROPHS, ERDS #### [place] [address] Potassium [Moles/Vol] 4.5 mmol/L Normal 3.5-5.0 [facility] ([place] Comment on above: Result Comment: Spec imen slightly hemolyzed. Performed By: #### C K, CMP, GFR, TROPHS, ERDS #### [place] [address] Sodium [Moles/Vol] 140 mmol/L Normal 136-145 [facility] [place] Comment on above: Performed By: #### C K, CMP, GFR, TROPHS, ERDS #### [place] [address] Total Protein 7.1 G/dL Normal 5.7-8.2 [facility] ([place]) Comment on above: Result Comment: No te - New Reference Range in effect 19 Performed By: #### C K, CMP, GFR, TROPHS, ERDS #### [place] [address] Urea nitrogen [Mass/Vol] 8.0 mg/dL Normal 8.0-22.0 [facility] ([place] Comment on above: Performed By: #### C K, CMP, GFR, TROPHS, ERDS #### [place] [id number] CVFLURVon 10-16-2021 Date of Onset 20211012 Invalid Interpretation Code [facility] ([place] Comment on above: Performed By: #### C K, CMP, GFR, TROPHS, ERDS #### [place] [id number] Employed in Healthcare No [facility] ([place]) Comment on above: Performed By: #### C K, CMP, GFR, TROPHS, ERDS #### [place] [phone] First Test No [facility] ([place]) Comment on above: Performed By: #### C K, CMP, GFR, TROPHS, ERDS #### [place] [address] FLU A PCR Negative Normal Negative [facility] ([place]) Comment on above: Result Comment: Note s [id number] Performed By: #### C K, CMP, GFR, TROPHS, ERDS #### [place] [address] FLU B PCR Negative Normal Negative [facility] ([place]) Comment on above: Result Comment: Note s [id number] Performed By: #### C K, CMP, GFR, TROPHS, ERDS #### [place] [address] [facility] ([place] Comment on above: Performed By: #### C K, CMP, GFR, TROPHS, ERDS #### [place] [address] [facility] ([place] Comment on above: Performed By: #### C K, CMP, GFR, TROPHS, ERDS #### [place] [address] Not [facility] ([place]) Comment on above: Performed By: #### C K, CMP, GFR, TROPHS, ERDS #### [place] [address] Resides in Congregate Care Setting Unknown Normal [facility] ([place] Comment on above: Performed By: #### C K, CMP, GFR, TROPHS, ERDS #### [place] [address] RSV PCR Negative Normal Negative [facility] ([place]) Comment on above: Result Comment: Note s [id number] Performed By: #### C K, CMP, GFR, TROPHS, ERDS #### [place] [address] SARS-CoV-2 (COVID-19) RNA FLOR+probe Ql (Unsp spec) Positive Abnormal Negative [facility] ([place]) Comment on above: Result Comment: This organism causes a reportable disease. Infection Control has been notified. Results have been reported to the [facility] [place] [facility]. Notes [id number] This test has been authorized by FDA under an EUA for use by authorized laboratories and has not been FDA cleared or approved. Results from the Xpert Xpress SARS-CoV-2/Flu/RSV or Xpert Xpress SARS-CoV-2 only test should be correlated with the clinical history, epidemiological data, and other data available to the clinician evaluating the patient. Performance of the Xpert Xpress SARS-CoV-2/Flu/RSV or Xpert Xpress SARS-CoV-2 only test has only been established in nasopharyngeal swab specimens. Erroneous test results might occur from improper specimen collection; failure to follow the recommended sample collection, handling, and storage procedures; technical error; or sample mix-up. False negative results may occur if virus is present at levels below the analytical limit of detection. Viral nucleic acid may persist in vivo, independent of virus viability. Detection of analyte target(s) does not imply that the corresponding virus(es) are infectious or are the causative agents for clinical symptoms. Recent patient exposure to FluMist or other live attenuated influenza vaccines may cause inaccurate positive results. Performed By: #### C K, CMP, GFR, TROPHS, ERDS #### [place] [address] Symptomatic as Defined by CDC No Normal [facility] ([place]) Comment on above: Performed By: #### C K, CMP, GFR, TROPHS, ERDS #### [address] 10-16-2021 Acetaminophen [Mass/Vol] ug/mL Low 10.0-20.0 [facility] ([place]) Comment on above: Performed By: #### C K, CMP, GFR, TROPHS, ERDS #### [place] [address] ER Drug Screen (s) Negative [facility] Comment on above: Performed By: #### C K, CMP, GFR, TROPHS, ERDS #### [place] [address] ER Drug Screen Interp Serum shows no evidence of drugs routinely screened Invalid Interpretation Code [facility] ([place]) Comment on above: Performed By: #### C K, CMP, GFR, TROPHS, ERDS #### [place] [address] ER Serum Drugs Screened: See Below Normal [facility] ([place]) Comment on above: Result Comment: This drug screen is a presumptive screening only. No confirmation will be performed unless requested. Drugs included in the ER serum drug screen are: Threshold Ethanol 10.0 mg/dL Salicylate 2.0 mg/dL Acetaminophen 2.0 mcg/mL Tricyclic Antidepressants 300 ng/mL Testing has been performed FOR MEDICAL PURPOSES ONLY. Performed By: #### C K, CMP, GFR, TROPHS, ERDS #### [place] [address] Ethanol Level <10.[address] [facility] ([place]) Comment on above: Performed By: #### C K, CMP, GFR, TROPHS, ERDS #### [place] [address] Salicylate Lvl (ds) <3.0 Low 10.0-25.0 [facility] ([place]) Comment on above: Performed By: #### C K, CMP, GFR, TROPHS, ERDS #### [place] [address] TCA (s) Negative Normal 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 No (10/16/21 8:36 AM) Invalid Interpretation Code AH Auto Viro/Sero SS First Test No (10/16/21 8:36 AM) Invalid Interpretation Code AH Auto Viro/Sero SS FLU A PCR Negative 7 (10/16/21 8:36 AM) Invalid Interpretation Code Negative AH Auto Viro/Sero SS Comment on above: Result Comment: [place] s [id number] FLU B PCR Negative 9 (10/16/21 8:36 AM) Invalid Interpretation Code Negative AH Auto Viro/Sero SS Comment on above: Result Comment: Note s [id number] Hospitalized Unknown (10/16/21 8:36 AM) Invalid Interpretation Code AH Auto Viro/Sero SS ICU No (10/16/21 8:36 AM) Invalid Interpretation Code AH Auto Viro/Sero SS Not (10/16/21 8:36 AM) Invalid Interpretation Code AH Auto Viro/Sero SS Resides in Congregate Care Setting Unknown (10/16/21 8:36 AM) Invalid Interpretation Code AH Auto Viro/Sero SS RSV PCR Negative 11 (10/16/21 8:36 AM) Invalid Interpretation Code Negative AH Auto Viro/Sero SS Comment on above: Result Comment: [place] s [id number] SARS-CoV-2 (COVID-19) RNA FLOR+probe Ql (Unsp spec) Positive 5 *ABN* (10/16/21 8:36 AM) Invalid Interpretation Code Negative AH Auto Viro/Sero SS Comment on above: Result Comment: This organism causes a reportable disease. Infection Control has been notified. Results have been reported to the [facility] [place] [facility]. Notes [id number] Symptomatic as Defined by CDC No (10/16/21 8:36 AM) Invalid Interpretation Code AH Auto Viro/Sero SS LABORATORYOrdered By: Megan Park on 10-16-2021 ER U Drug Screen Negative (10/16/21 1:41 AM) Invalid Interpretation Code Chemistry S ER U Drug Screen Interp Urine shows no evidence of drugs routinely screened. Invalid Interpretation Code AH Chemistry S U ER Drugs Screened: See Below (10/16/21 1:41 AM) Invalid Interpretation Code Chemistry S Acetaminophen [Mass/Vol] mcg/mL Invalid Interpretation Code 10.0 - 20.0 mcg/mL AH ADM SS ER Drug Screen (s) Negative (10/16/21 1:30 AM) Invalid Interpretation Code AH Chemistry S ER Drug Screen Interp Serum shows no evidence of drugs routinely screened Invalid Interpretation Code AH Chemistry S ER Serum Drugs Screened: See Below (10/16/21 1:30 AM) Invalid Interpretation Code Chemistry S Ethanol [Mass/Vol] mg/dL Invalid Interpretation Code AH ADM SS Salicylates [Mass/Vol] mg/dL Invalid Interpretation Code 10.0 - 25.0 mg/dL AH ADM SS Tricyclic antidepressants Screen Ql Negative Invalid Interpretation Code ADM SS LABORATORYOrdered By: SYSTEM SYSTEM on 10-16-2021 Albumin BCP dye [Mass/Vol] 3.7 G/dL Invalid Interpretation Code 3.2 - 4.8 G/dL ADM SS Albumin/Globulin [Mass ratio] 1.1 {ratio} Invalid Interpretation Code 0.9 - 1.6 ratio ADM SS ALP [Catalytic activity/Vol] 142 U/L Invalid Interpretation Code 38 - 126 U/L ADM SS ALT No additional P-5'-P [Catalytic activity/Vol] 20 U/L Invalid Interpretation Code 10 - 49 U/L ADM SS AST [Catalytic activity/Vol] 21 U/L Invalid Interpretation Code 8 - 34 U/L ADM SS Basophils (Bld) [#/Vol] 0.1 103/mcL Invalid Interpretation Code 0.0 - 0.3 10^3/mcL Workflow SS Basophils/100 WBC (Bld) 0.6 % Invalid Interpretation Code 0.0 - 2.5 % Workflow SS Bilirubin [Mass/Vol] 0.30 mg/dL Invalid Interpretation Code 0.20 - 1.20 mg/dL ADM SS Calcium [Mass/Vol] 9.4 mg/dL Invalid Interpretation Code 8.7 - 10.4 mg/dL ADM SS Chloride [Moles/Vol] 111 mmol/L Invalid Interpretation Code 98 - 110 mEq/L ADM SS CK [Catalytic activity/Vol] 88 U/L Invalid Interpretation Code 7 - 185 U/L ADM SS Comment on above: Result Comment: Spec imen slightly hemolyzed. CO2 [Moles/Vol] 27 mmol/L Invalid Interpretation Code 22 - 32 mEq/L ADM SS Creatinine [Mass/Vol] 0.61 mg/dL Invalid Interpretation Code 0.50 - 1.20 mg/dL ADM SS Electrolyte Balance 2.0 mEq/L Invalid Interpretation Code 4.0 - 15.0 mEq/L ADM SS Eosinophils (Bld) [#/Vol] 0.3 103/mcL Invali d Interpretation Code 0.0 - 0.7 10^3/mcL Workflow SS Eosinophils/100 WBC (Bld) 1.8 % Invali d Interpretation Code 0.0 - 6.0 % Workflow SS Erythrocyte distribution width (RBC) [Ratio] 13.5 % Invalid Interpretation Code 11.5 - 15.5 % AH Workflow SS GFR/1.73 sq M.predicted among blacks MDRD (S/P/Bld) [Vol rate/Area] ml/min/1.73sqm Invalid Interpretation Code AH ADM SS GFR/1.73 sq M.predicted among non-blacks MDRD (S/P/Bld) [Vol rate/Area] ml/min/1.73sqm Invalid Interpretation Code AH ADM SS Globulin 3.4 G/dL Invalid Interpretation Code 1.5 - 3.8 G/dL AH ADM SS Glucose [Mass/Vol] 90 mg/dL Invalid Interpretation Code 70 - 110 mg/dL AH ADM SS Hematocrit (Bld) [Volume fraction] 41.7 % Invalid Interpretation Code 34.0 - 46.0 % AH Workflow SS Hemoglobin (Bld) [Mass/Vol] 14.2 G/dL Invalid Interpretation Code 12.0 - 16.0 G/dL AH Workflow SS Lymphocytes (Bld) [#/Vol] 3.3 103/mcL Invali d Interpretation Code 0.9 - 4.3 10^3/mcL AH Workflow SS Lymphocytes/100 WBC (Bld) 20.4 % Invali d Interpretation Code 20.0 - 40.0 % AH Workflow SS MCH (RBC) [Entitic mass] 29.5 pg Invalid Interpretation Code 27.0 - 33.0 pg AH Workflow SS MCHC 34.0 G/dL Invalid Interpretation Code 32.0 - 36.0 G/dL AH Workflow SS MCV (RBC) [Entitic vol] 86.8 fL Invalid Interpretation Code 80.0 - 99.0 fL AH Workflow SS Monocyte distribution width Auto (Bld) [Entitic vol] 16.83 Invalid Interpretation Code 0.00 - 20.00 AH Workflow SS Comment on above: Result Comment: For ED adult patients suspected of sepsis, MDW<=20.0 does not rule out sepsis or risk of sepsis Monocytes (Bld) [#/Vol] 1.0 103/mcL Invalid Interpretation Code 0.1 - 1.4 10^3/mcL AH Workflow SS Monocytes/100 WBC (Bld) 6.1 % Invalid Interpretation Code 2.0 - 13.0 % AH Workflow SS Neutrophils (Bld) [#/Vol] 11.6 103/mcL Invali d Interpretation Code 2.3 - 8.1 10^3/mcL AH Workflow SS Neutrophils/100 WBC (Bld) 71.1 % Invali d Interpretation Code 50.0 - 75.0 % Workflow SS Platelet mean volume (Bld) [Entitic vol] 7.6 fL Invalid Interpretation Code 6.6 - 10.5 fL Workflow SS Platelets (Bld) [#/Vol] 306 103/mcL Invalid Interpretation Code 150 - 450 10^3/mcL AH Workflow SS Potassium [Moles/Vol] 4.5 mmol/L Invalid Interpretation Code 3.5 - 5.0 mEq/L ADM SS Comment on above: Result Comment: Spec imen slightly hemolyzed. Protein [Mass/Vol] 7.1 G/dL Invalid Interpretation Code 5.7 - 8.2 G/dL ADM SS RBC (Bld) [#/Vol] 4.80 106/mcL Invalid Interpretation Code 4.10 - 5.30 10^6/mcL Workflow SS Sodium [Moles/Vol] 140 mmol/L Invalid Interpretation Code 136 - 145 mEq/L ADM SS Troponin I.cardiac DL <= 0.01 ng/mL [Mass/Vol] 3.37 ng/L Invalid Interpretation Code 0.00 - 34.00 ng/L ADM SS Urea nitrogen [Mass/Vol] 8.0 mg/dL Invalid Interpretation Code 8.0 - 22.0 mg/dL ADM SS Urea nitrogen/Creatinine [Mass ratio] 13.1 ratio Invalid Interpretation Code 10.0 - 22.0 ratio ADM SS WBC 16.3 103/mcL Invalid Interpretation Code 4.5 - 10.8 10^3/mcL Workflow SS [facility] 10-16-2021 Troponin I High Sensitivity 3.37 ng/L Normal 0.00-34.00 [facility] ([place]) Comment on above: Result Comment: If t he High Sensitive Troponin result is below the 99th percentile value (<45 ng/L) at the first blood draw, at least two additional blood samples should be drawn before results are interpreted as negative for AMI. Performed By: #### C K, CMP, GFR, TROPHS, SUYAPA #### [address] [address] U ERDSon 10-16-2021 ER U Drug Screen Negative Normal [facility] ([place]) Comment on above: Performed By: #### U ERDS #### [address] [address] ER U Drug Screen Interp Urine shows no evidence of drugs routinely screened. Invalid Interpretation Code [facility] ([place]) Comment on above: Performed By: #### U ERDS #### [facility] [address] [place] [id number] U ER Drugs Screened: See Below Normal [facility] ([place]) Comment on above: Result Comment: This drug screen is a presumptive screening only. No confirmation will be performed unless requested. Drugs included in the ER urine drug screen are: Threshold Amphetamine/Methamphetamine 1000 ng/mL Barbiturates 200 ng/mL Benzodiazepine metabolites 200 ng/mL Cannabinoids (THC metabolites) 50 ng/mL Benzoylecognine (cocaine met) 300 ng/mL Opiates 300 ng/mL Phencyclidine (PCP) 25 ng/mL Testing has been performed FOR MEDICAL PURPOSES ONLY. Performed By: #### U ERDS #### [place] [address] ED Provider Noteon ED Provider Note [facility] ED EMERGENCY DEPARTMENT ENCOUNTER Pt Name: Cathy Cam Birthdate 1975 Date of evaluation: 10/11/2021 Provider: Jitendra Ortiz DO CHIEF COMPLAINT Chief Complaint Patient presents with Other HISTORY OF PRESENT ILLNESS (Location/Symptom, Timing/Onset, Context/Setting, Quality, Duration, Modifying Factors, Severity) Note limiting factors. I wore a kn95 mask for the entirety of this encounter. HPI Cathy Cam is a 46 y.o. female who presents to the emergency department with chief complaint of feeling depressed and needing help with residents. She is currently essentially homeless after she notes she got kicked out of her senior care. She states she was told to get a job and find another place to live. She is from [place] originally but ended up in [place] after a psychiatric admission. Then discharged to senior care in [place]. She states she does not like it there and would not be able to go back regardless. Requesting assistance finding a new place to go. No other complaints. Denies any chest pain, shortness of breath, abdominal pain, nausea, vomiting, diarrhea. Denies any suicidal or homicidal ideation as well. Nursing Notes were reviewed. REVIEW OF SYSTEMS (2+ for level 4; 10+ for level 5) Review of Systems Ten systems reviewed. Pertinent positives and negatives as per HPI. PAST MEDICAL HISTORY Past Medical History: Diagnosis Date Seizures (HCC) SURGICAL HISTORY Past Surgical History: Procedure Laterality Date HYSTERECTOMY (CERVIX STATUS UNKNOWN) CURRENT MEDICATIONS Discharge Medication List as of 10/11/2021 3:00 PM CONTINUE these medications which have NOT CHANGED Details amitriptyline (ELAVIL) 25 MG tablet TAKE 1 TABLET BY MOUTH IN THE EVENINGHistorical Med bethanechol (URECHOLINE) 10 MG tablet Take 10 mg by mouth 3 times dailyHistorical Med escitalopram (LEXAPRO) 10 MG tablet Take 10 mg by mouth nightlyHistorical Med nystatin (MYCOSTATIN) 116394 UNIT/GM powder Apply topically 2 times daily, Topical, 2 TIMES DAILY Starting Sun09/02/2021, Until 09/02/2022, Historical Med phenytoin (DILANTIN) 100 MG ER capsule Take 2 tablets every morning and 3 tablets every evening, Disp-150 capsule, R-1Print levothyroxine (SYNTHROID) 25 MCG tablet Take 1 tablet by mouth daily, Disp-90 tablet, R-1Print ALLERGIES Latex, Aspirin, Fish allergy, Trazodone, and Erythromycin FAMILY HISTORY History reviewed. No pertinent family history. SOCIAL HISTORY Social History Socioeconomic History Marital status: Single Spouse name: None Number of children: None Years of education: None Highest education level: None Tobacco Use Smoking status: Every Day Packs/day: 1.00 Types: Cigarettes Smokeless tobacco: Never Vaping Use Vaping Use: Never used Substance and Sexual Activity Alcohol use: Not Currently Drug use: Not Currently SCREENINGS Bret Coma Scale Eye Opening: Spontaneous Best Verbal Response: Oriented Best Motor Response: Obeys commands Bret Coma Scale Score: 15 PHYSICAL EXAM (up to 7 for level 4, 8 or more for level 5) ED Triage Vitals [10/11/21 1127] BP Temp Temp Source Heart Rate Resp SpO2 Height Weight (!) 143/98 98 ?F (36.7 ?C) Temporal 98 18 99 % -- -- Physical Exam Vitals and nursing note reviewed. Constitutional: General: She is not in acute distress. Appearance: She is not ill-appearing or diaphoretic. HENT: Head: Normocephalic and atraumatic. Right Ear: External ear normal. Left Ear: External ear normal. Nose: Nose normal. Mouth/Throat: Mouth: Mucous membranes are moist. Eyes: Extraocular Movements: Extraocular movements intact. Conjunctiva/sclera: Conjunctivae normal. Pupils: Pupils are equal, round, and reactive to light. Cardiovascular: Rate and Rhythm: Normal rate and regular rhythm. Heart sounds: No murmur heard. Pulmonary: Effort: Pulmonary effort is normal. No respiratory distress. Breath sounds: Normal breath sounds. No wheezing. Abdominal: General: Abdomen is flat. Bowel sounds are normal. There is no distension. Tenderness: There is no abdominal tenderness. Musculoskeletal: General: No deformity. Cervical back: Neck supple. Right lower leg: No edema. Left lower leg: No edema. Skin: General: Skin is warm and dry. Capillary Refill: Capillary refill takes less than 2 seconds. Findings: No rash. Neurological: Mental Status: She is alert and oriented to person, place, and time. Psychiatric: Mood and Affect: Affect is angry. Speech: Speech normal. Behavior: Behavior is not agitated or aggressive. Thought Content: Thought content does not include homicidal or suicidal ideation. Thought content does not include homicidal plan. EMERGENCY DEPARTMENT COURSE and DIFFERENTIAL DIAGNOSIS/MDM: Vitals: Vitals: 10/11/21 1127 10/11/21 1305 BP: (!) 143/98 130/88 Pulse: 98 83 Resp: 18 18 Temp: 98 ?F (36.7 ?C) 97.8 ?F (36.6 ? (more content not included)... Normal [facility] ED Provider Noteon 2 ED Provider Note [facility] EMERGENCY DEPT EMERGENCY DEPARTMENT ENCOUNTER Pt Name: Cathy Cam Birthdate 1975 Date of evaluation: 10/03/2021 Provider: Boom Bustamante MD CHIEF COMPLAINT No chief complaint on file. I wore a KN95 mask for the entirety of this encounter. HISTORY OF PRESENT ILLNESS (Location/Symptom, Timing/Onset,Context/S etting, Quality, Duration, Modifying Factors, Severity) Note limiting factors. HPI Cathy Cam is a 46 y.o. female who presents to the emergency department needing refill of her Dilantin prescription. Denies fevers chills cough cold chest pain shortness of breath or abdominal pain. Denies trauma or injury. Denies recent seizures. States she has an appointment with a new doctor later this week. Nursing Notes were reviewed. REVIEW OFSYSTEMS (2+ for level 4; 10+ level 5) Review of Systems pertinent positives as above per history of present illness. Other systems reviewed and found to be negative to a total of 6 systems reviewed. PAST MEDICAL HISTORY No past medical history on file. SURGICAL HISTORY No past surgical history on file. CURRENT MEDICATIONS Previous Medications No medications on file ALLERGIES Patient has no allergy information on record. FAMILY HISTORY No family history on file. SOCIAL HISTORY Social History Socioeconomic History ? Marital status: Single Spouse name: Not on file ? Number of children: Not on file ? Years of education: Not on file ? Highest education level: Not on file Occupational History ? Not on file Tobacco Use ? Smoking status: Not on file ? Smokeless tobacco: Not on file Substance and Sexual Activity ? Alcohol use: Not on file ? Drug use: Not on file ? Sexual activity: Not on file Other Topics Concern ? Not on file Social History Narrative ? Not on file Social Determinants of Health Financial Resource Strain: ? Difficulty of Paying Living Expenses: Not on file Food Insecurity: ? Worried About Running Out of Food in the Last Year: Not on file ? Ran Out of Food in the Last Year: Not on file Transportation Needs: ? Lack of Transportation (Medical): Not on file ? Lack of Transportation (Non-Medical): Not on file Physical Activity: ? Days of Exercise per Week: Not on file ? Minutes of Exercise per Session: Not on file Stress: ? Feeling of Stress : Not on file Social Connections: ? Frequency of Communication with Friends and Family: Not on file ? Frequency of Social Gatherings with Friends and Family: Not on file ? Attends Christian Services: Not on file ? Active Member of Clubs or Organizations: Not on file ? Attends Club or Organization Meetings: Not on file ? Marital Status: Not on file Intimate Partner Violence: ? Fear of Current or Ex-Partner: Not on file ? Emotionally Abused: Not on file ? Physically Abused: Not on file ? Sexually Abused: Not on file Housing Stability: ? Unable to Pay for Housing in the Last Year: Not on file ? Number of Places Lived in the Last Year: Not on file ? Unstable Housing in the Last Year: Not on file SCREENINGS PHYSICAL EXAM (up to 7 for level 4, 8 or more for level 5) ED Triage Vitals BP Temp Temp src Pulse Resp SpO2 Height Weight -- -- -- -- -- -- -- -- Physical Exam vital signs reviewed in nurse's notes. Patient is nontoxic in appearance. No respiratory distress. Head: Normocephalic, atraumatic Eyes: Pupils are equal, round and reactive to light. EOMI. Conjunctiva clear. Sclera anicteric ENT: Mucous membranes moist. Throat shows no erythema exudates or edema. Neck: No anterior adenopathy. No tenderness or stiffness. Lungs: Clear to auscultation bilaterally. No wheezing rales or rhonchi. Heart: Regular rate and rhythm. No audible murmur or gallop. Abdomen: Soft, nondistended, nontender. No rebound or guarding. No signs of peritonitis. Extremities: No gross deformity. No obvious tenderness. No obvious joint swelling. No calf tenderness. Negative Homans sign. Good distal pulses in all 4 extremities. Neurologic: Alert and fully oriented. No focal motor, sensory deficits in all 4 extremities. Cranial nerves II through XII grossly intact. Cerebellar testing intact. DIAGNOSTIC RESULTS EMERGENCY DEPARTMENT COURSE and DIFFERENTIAL DIAGNOSIS/MDM: Vitals: There were no vitals filed for this visit. Medications phenytoin (DILANTIN) ER capsule 200 mg (has no administration in time range) MDM.: Patient needs medication refills until she follows up with her new primary care provider. She has a normal medical screening exam REVAL: PROCEDURES: Unless otherwise noted below, none Procedures FINAL IMPRESSION 1. Encounter for medication refill DISPOSITION/PLAN DISPOSITION Decision To Discharge 10/03/2021 08:12:41 AM PATIENT REFERRED TO: Your new primary care provider Go in 1 day DISCHARGE MEDICATIONS: New Prescriptions LEVOTHYROXINE (SYNTHROID) 25 MCG TABLET Take 1 tablet by mouth d (more content not included)... Normal [employer] [facility] US ABDOMEN LIMITED STUDYon 0 08-29-2021 US ABDOMEN LIMITED STUDY EXAMINATION: US ABDOMEN LIMITED STUDY HISTORY: ORDERING SYSTEM PROVIDED HISTORY: pain COMPARISON: None TECHNIQUE: Focused Grayscale and color Doppler examination of the right upper quadrant of the abdomen. FINDINGS: Evaluation is limited due to patient body habitus as well as overlying obscuring bowel gas. Normal hepatic parenchymal echogenicity. Liver is not enlarged. No acute abnormalities. Gallbladder is normal, given contracted state, without wall thickening or echogenic cholelithiasis. No pericholecystic fluid. Sonographic Morfin sign is absent. Common bile duct measures 3 mm (normal). No intrahepatic bile duct dilatation. Pancreas is obscured by bowel gas shadowing. Visualized portions of the body are normal. Right kidney measures 9.3 x 3.6 cm. No hydronephrosis. Normal renal echogenicity. No right upper quadrant ascites. IMPRESSION: No acute right upper quadrant abdominal process. Workstation ID: [id number] Dictated by: RENY OCAMPO on SunAug 30, 2021 8:58:04 AM EDT Transcribed by: RENY OCAMPO on SunAug 30, 2021 8:58:04 AM EDT Finalized by: RENY OCAMPO on SunAug 30, 2021 8:58:04 AM EDT Normal [facility] Comment on above: Order Comment: Injur y/Trauma or Illness?:Illness/Other How long have you had these symptoms (acute/chronic)?:Acute Reason for exam?:RUQ, RLQ pain History of cancer?:unknown Surgeries, chemotherapy, or radiation?:unknown Type of Exam?:Initial Additional signs and symptoms?:no COVID-19, MOLECULARon 2021 SARS-CoV-2 (COVID-19) RNA FLOR+probe Ql (Unsp spec) Not detected Normal Not Detected [facility] Comment on above: Order Comment: This test was performed under the FDA's Emergency Use Authorization (EUA). Testing was performed using the Isaac Juan SARS-CoV-2 RT-PCR AND Influenza A/B Nucleic Acid Test on the Juan Hansa System. This test has not been approved for use in asymptomatic patients and its performance in this patient population has not been evaluated. Negative results do not rule out the presence of SARS-CoV-2, influenza A, and/or influenza B. Fact sheets for the EUA can be found at the following links: For Healthcare Providers: https://www.fda.gov/media/288662/download For Patients: https://www.fda.gov/media/021176/download Performed By: #### L [id number] #### [facility] [address] [place] [address] [place] M.D. [id number] No Panel Information Enteric Bacteriology [facility] Work Phone: Vital Signs Date Time Vital Sign Value Performing Clinician Facility 10-03-2024 09:19-0400 Body mass index (BMI) [Ratio] 39.33 kg/m2 Gonzalo Tyson Jr., MD Work Phone: [facility] 10-03-2024 09:19-0400 Body weight 91.35 kg Gonzalo Tyson Jr., MD Work Phone: [facility] 10-03-2024 09:19-0400 Diastolic blood pressure 79 mm[Hg] Gonzalo Tyson Jr., MD Work Phone: [facility] 10-03-2024 09:19-0400 Heart rate 82 /min Gonzalo Tyson Jr., MD Work Phone: [facility] 10-03-2024 09:19-0400 Respiratory rate 16 /min Gonzalo Tyson Jr., MD Work Phone: [facility] 10-03-2024 09:19-0400 SaO2% (BldA) [Mass fraction] 99 % Gonzalo Tyson Jr., MD Work Phone: [facility] 10-03-2024 09:19-0400 Systolic blood pressure 111 mm[Hg] Gonzalo Tyson Jr., MD Work Phone: [facility] 07-28-2024 11:18-0400 Body height 152.4 cm Jorge Maryanne TURNER OFF-C Work Phone: [facility] 07-28-2024 11:18-0400 Body mass index (BMI) [Ratio] 39.5 kg/m2 Jorge Maryanne TURNER OFF-C Work Phone: [facility] 07-28-2024 11:18-0400 Body weight 91.85 kg Jorge Maryanne TURNER OFF-C Work Phone: [facility] 07-28-2024 11:18-0400 Diastolic blood pressure 74 mm[Hg] Jorge Maryanne TURNER OFF-C Work Phone: [facility] 07-28-2024 11:18-0400 Systolic blood pressure 112 mm[Hg] Jorge Maryanne TURNER OFF-C Work Phone: [facility] 07-28-2024 09:14-0400 Body mass index (BMI) [Ratio] 39.61 kg/m2 Jorge Maryanne [employer]CH [employer] PRESS OPERATOR.PLANT OPERATIONS MANAGER Work Phone: [facility] 07-28-2024 09:14-0400 Body weight 92 kg Jorge Maryanne ARCH C[employer] PRESS OPERATOR.PLANT OPERATIONS MANAGER Work Phone: [facility] 07-28-2024 09:14-0400 Diastolic blood pressure 80 mm[Hg] Jorge Maryanne [employer] PRESS OPERATOR.PLANT OPERATIONS MANAGER Work Phone: [facility] 07-28-2024 09:14-0400 Heart rate 116 /min Jorge Maryanne [employer] PRESS OPERATOR.PLANT OPERATIONS MANAGER Work Phone: [facility] 07-28-2024 09:14-0400 SaO2% (BldA) [Mass fraction] 96 % Jorge Maryanne [employer] PRESS OPERATOR.PLANT OPERATIONS MANAGER Work Phone: [facility] 07-28-2024 09:14-0400 Systolic blood pressure 110 mm[Hg] Jorge Maryanne [employer] PRESS OPERATOR.PLANT OPERATIONS MANAGER Work Phone: [facility] 06-02-2024 07:07-0400 Body mass index (BMI) [Ratio] 40.26 kg/m2 Jorge Maryanne [employer] PRESS OPERATOR.PLANT OPERATIONS MANAGER Work Phone: [facility] 06-02-2024 07:07-0400 Body weight 93.5 kg Jorge Maryanne [employer] PRESS OPERATOR.PLANT OPERATIONS MANAGER Work Phone: [facility] 06-02-2024 07:07-0400 Diastolic blood pressure 78 mm[Hg] Jorge Maryanne [employer] PRESS OPERATOR.PLANT OPERATIONS MANAGER Work Phone: [facility] 06-02-2024 07:07-0400 Heart rate 83 /min Jorge Maryanne [employer] PRESS OPERATOR.PLANT OPERATIONS MANAGER Work Phone: [facility] 06-02-2024 07:07-0400 SaO2% (BldA) [Mass fraction] 98 % Jorge Maryanne [employer] PRESS OPERATOR.PLANT OPERATIONS MANAGER Work Phone: [facility] 06-02-2024 07:07-0400 Systolic blood pressure 102 mm[Hg] Jorge Maryanne [employer] PRESS OPERATOR.PLANT OPERATIONS MANAGER Work Phone: [facility] 02-28-2024 07:29-0500 Body mass index (BMI) [Ratio] 39.31 kg/m2 Jennifer Agarwal AR[employer] C[employer] PRESS OPERATOR.BLACK TOP RAKER Work Phone: [facility] 02-28-2024 07:29-0500 Body temperature 98.6 [degF] Jennifer Agarwal ARCH C[employer]ION PRESS OPERATOR.BLACK TOP RAKER Work Phone: [facility] 02-28-2024 07:29-0500 Body weight 91.3 kg Jennifer Agarwal ARCH C[employer]ION PRESS OPERATOR.BLACK TOP RAKER Work Phone: [facility] 02-28-2024 07:29-0500 Diastolic blood pressure 74 mm[Hg] Jennifer Agarwal ARCH C[employer]ION PRESS OPERATOR.BLACK TOP RAKER Work Phone: [facility] 02-28-2024 07:29-0500 Heart rate 93 /min Jennifer Agarwal ARCH C[employer]ION PRESS OPERATOR.BLACK TOP RAKER Work Phone: [facility] 02-28-2024 07:29-0500 Respiratory rate 16 /min Jennifer Agarwal ARCH C[employer] PRESS OPERATOR.BLACK TOP RAKER Work Phone: [facility] 02-28-2024 07:29-0500 SaO2% (BldA) [Mass fraction] 99 % Jennifer Agarwal ARCH C[employer]ION PRESS OPERATOR.BLACK TOP RAKER Work Phone: [facility] 02-28-2024 07:29-0500 Systolic blood pressure 110 mm[Hg] Jennifer Agarwal ARCH C[employer]ION PRESS OPERATOR.BLACK TOP RAKER Work Phone: [facility] 11-27-2023 10:29-0400 Body mass index (BMI) [Ratio] 39.35 kg/m2 Jorge Maryanne [employer] PRESS OPERATOR.PLANT OPERATIONS MANAGER Work Phone: [facility] 11-27-2023 10:29-0400 Body weight 91.4 kg Jorge Maryanne [employer] PRESS OPERATOR.PLANT OPERATIONS MANAGER Work Phone: [facility] 11-27-2023 10:29-0400 Diastolic blood pressure 59 mm[Hg] Jorge Maryanne [employer] PRESS OPERATOR.PLANT OPERATIONS MANAGER Work Phone: [facility] 11-27-2023 10:29-0400 Heart rate 86 /min Jorge Maryanne AR[employer] PRESS OPERATOR.PLANT OPERATIONS MANAGER Work Phone: [facility] 11-27-2023 10:29-0400 SaO2% (BldA) [Mass fraction] 98 % Jorge Maryanne [employer] PRESS OPERATOR.PLANT OPERATIONS MANAGER Work Phone: [facility] 11-27-2023 10:29-0400 Systolic blood pressure 84 mm[Hg] Jorge Maryanne AR[employer] PRESS OPERATOR.PLANT OPERATIONS MANAGER Work Phone: [facility] 10-19-2023 10:15-0400 Body mass index (BMI) [Ratio] 39.06 kg/m2 Jorge Maryanne AR[employer] PRESS OPERATOR.PLANT OPERATIONS MANAGER Work Phone: [facility] 10-19-2023 10:15-0400 Body weight 90.72 kg Jorge Maryanne AR[employer] C[employer] PRESS OPERATOR.PLANT OPERATIONS MANAGER Work Phone: [facility] 10-19-2023 10:15-0400 Diastolic blood pressure 80 mm[Hg] Jorge Maryanne AR[employer] C[employer] PRESS OPERATOR.PLANT OPERATIONS MANAGER Work Phone: [facility] 10-19-2023 10:15-0400 Heart rate 64 /min Jorge Maryanne ARCH C[employer]ION PRESS OPERATOR.PLANT OPERATIONS MANAGER Work Phone: [facility] 10-19-2023 10:15-0400 Respiratory rate 12 /min Jorge Maryanne ARCH CUSHION PRESS OPERATOR.PLANT OPERATIONS MANAGER Work Phone: [facility] 10-19-2023 10:15-0400 Systolic blood pressure 104 mm[Hg] Jorge Maryanne ARCH CUSHION PRESS OPERATOR.PLANT OPERATIONS MANAGER Work Phone: [facility] 08-06-2023 09:14-0400 Body mass index (BMI) [Ratio] 40.82 kg/m2 Jorge Maryanne AR[employer] C[employer] PRESS OPERATOR.PLANT OPERATIONS MANAGER Work Phone: [facility] 08-06-2023 09:14-0400 Body weight 94.8 kg Jorge Maryanne ARCH CUSHION PRESS OPERATOR.PLANT OPERATIONS MANAGER Work Phone: [facility] 08-06-2023 09:14-0400 Diastolic blood pressure 80 mm[Hg] Jorge Maryanne ARCH CUSHION PRESS OPERATOR.PLANT OPERATIONS MANAGER Work Phone: [facility] 08-06-2023 09:14-0400 Heart rate 84 /min Jorge Maryanne ARCH C[employer]ION PRESS OPERATOR.PLANT OPERATIONS MANAGER Work Phone: [facility] 08-06-2023 09:14-0400 SaO2% (BldA) [Mass fraction] 98 % Jorge Maryanne ARCH C[employer]ION PRESS OPERATOR.PLANT OPERATIONS MANAGER Work Phone: [facility] 08-06-2023 09:14-0400 Systolic blood pressure 110 mm[Hg] Jorge Maryanne ARCH CUSHION PRESS OPERATOR.PLANT OPERATIONS MANAGER Work Phone: [facility] 07-20-2023 09:41-0400 Body mass index (BMI) [Ratio] 40.82 kg/m2 Jorge Maryanne ARCH C[employer] PRESS OPERATOR.PLANT OPERATIONS MANAGER Work Phone: [facility] 07-20-2023 09:41-0400 Body weight 94.8 kg Jorge Maryanne ARCH CUSHION PRESS OPERATOR.PLANT OPERATIONS MANAGER Work Phone: [facility] 07-20-2023 09:41-0400 Diastolic blood pressure 80 mm[Hg] Jorge Maryanne ARCH CUSHION PRESS OPERATOR.PLANT OPERATIONS MANAGER Work Phone: [facility] 07-20-2023 09:41-0400 Heart rate 80 /min Jorge Maryanne ARCH CUSHION PRESS OPERATOR.PLANT OPERATIONS MANAGER Work Phone: [facility] 07-20-2023 09:41-0400 SaO2% (BldA) [Mass fraction] 98 % Jorge Maryanne ARCH C[employer]ION PRESS OPERATOR.PLANT OPERATIONS MANAGER Work Phone: [facility] 07-20-2023 09:41-0400 Systolic blood pressure 118 mm[Hg] Jorge Maryanne ARCH CUSHION PRESS OPERATOR.PLANT OPERATIONS MANAGER Work Phone: [facility] 01-19-2023 09:01-0400 Body weight 92.53 kg Jorge Maryanne ARCH CUSHION PRESS OPERATOR.PLANT OPERATIONS MANAGER Work Phone: [facility] 01-19-2023 09:01-0400 Diastolic blood pressure 72 mm[Hg] Jorge Maryanne ARCH CUSHION PRESS OPERATOR.PLANT OPERATIONS MANAGER Work Phone: [facility] 01-19-2023 09:01-0400 Heart rate 97 /min Jorge Maryanne ARCH CUSHION PRESS OPERATOR.PLANT OPERATIONS MANAGER Work Phone: [facility] 01-19-2023 09:01-0400 SaO2% (BldA) [Mass fraction] 98 % Jorge Maryanne ARCH CUSHION PRESS OPERATOR.PLANT OPERATIONS MANAGER Work Phone: [facility] 01-19-2023 09:01-0400 Systolic blood pressure 110 mm[Hg] Jorge Maryanne ARCH CUSHION PRESS OPERATOR.PLANT OPERATIONS MANAGER Work Phone: [facility] 12-25-2022 09:52-0400 Body temperature 98.49 [degF] Jorge Maryanne ARCH CUSHION PRESS OPERATOR.PLANT OPERATIONS MANAGER Work Phone: [facility] 12-25-2022 09:52-0400 Body weight 93.89 kg Jorge Maryanne ARCH CUSHION PRESS OPERATOR.PLANT OPERATIONS MANAGER Work Phone: [facility] 12-25-2022 09:52-0400 Diastolic blood pressure 80 mm[Hg] Jorge Maryanne ARCH CUSHION PRESS OPERATOR.PLANT OPERATIONS MANAGER Work Phone: [facility] 12-25-2022 09:52-0400 Heart rate 103 /min Jorge Maryanne ARCH CUSHION PRESS OPERATOR.PLANT OPERATIONS MANAGER Work Phone: [facility] 12-25-2022 09:52-0400 SaO2% (BldA) [Mass fraction] 97 % Jorge Maryanne ARCH CUSHION PRESS OPERATOR.PLANT OPERATIONS MANAGER Work Phone: [facility] 12-25-2022 09:52-0400 Systolic blood pressure 114 mm[Hg] Jorge Maryanne ARCH CUSHION PRESS OPERATOR.PLANT OPERATIONS MANAGER Work Phone: [facility] 12-04-2022 08:07-0400 Body temperature 97.39 [degF] Freedom Graham ARCH CUSHION PRESS OPERATOR.PLANT OPERATIONS MANAGER Work Phone: [facility] 12-04-2022 08:07-0400 Body weight 94.17 kg Freedom Graham ARCH CUSHION PRESS OPERATOR.PLANT OPERATIONS MANAGER Work Phone: [facility] 12-04-2022 08:07-0400 Diastolic blood pressure 91 mm[Hg] Freedom Graham ARCH CUSHION PRESS OPERATOR.PLANT OPERATIONS MANAGER Work Phone: [facility] 12-04-2022 08:07-0400 Heart rate 104 /min Freedom Graham ARCH CUSHION PRESS OPERATOR.PLANT OPERATIONS MANAGER Work Phone: [facility] 12-04-2022 08:07-0400 Respiratory rate 18 /min Freedom Graham ARCH CUSHION PRESS OPERATOR.PLANT OPERATIONS MANAGER Work Phone: [facility] 12-04-2022 08:07-0400 SaO2% (BldA) [Mass fraction] 97 % Freedom Graham ARCH CUSHION PRESS OPERATOR.PLANT OPERATIONS MANAGER Work Phone: [facility] 12-04-2022 08:07-0400 Systolic blood pressure 132 mm[Hg] Freedom Graham ARCH CUSHION PRESS OPERATOR.PLANT OPERATIONS MANAGER Work Phone: [facility] 11-06-2022 13:09-0400 Body height 152.4 cm [facility]-C Jorge Maryanne [facility] 11-06-2022 13:07-0400 Body mass index (BMI) [Ratio] 40 kg/m2 [facility]URNER OFF-C Jorge Maryanne [facility] 11-06-2022 13:07-0400 Body weight 93.04 kg [facility]-C Jorge Maryanne [facility] 11-06-2022 13:07-0400 Diastolic blood pressure 79 mm[Hg] TURNER [facility]-C Jorge Maryanne [facility] 11-06-2022 13:07-0400 Systolic blood pressure 114 mm[Hg] [facility]C Jorge Maryanne [facility] 10-23-2022 14:31-0400 Body height 152.4 cm [facility]-C Jorge Maryanne [facility] 10-20-2022 09:00-0400 Body weight 91.17 kg Jorge Maryanne ARCH CUSHION PRESS OPERATOR.PLANT OPERATIONS MANAGER Work Phone: [facility] 10-20-2022 09:00-0400 Diastolic blood pressure 84 mm[Hg] Jorge Maryanne ARCH CUSHION PRESS OPERATOR.PLANT OPERATIONS MANAGER Work Phone: [facility] 10-20-2022 09:00-0400 Heart rate 88 /min Jorge Maryanne ARCH CUSHION PRESS OPERATOR.PLANT OPERATIONS MANAGER Work Phone: [facility] 10-20-2022 09:00-0400 SaO2% (BldA) [Mass fraction] 97 % Jorge Maryanne ARCH CUSHION PRESS OPERATOR.PLANT OPERATIONS MANAGER Work Phone: [facility] 10-20-2022 09:00-0400 Systolic blood pressure 100 mm[Hg] Jorge Maryanne ARCH CUSHION PRESS OPERATOR.PLANT OPERATIONS MANAGER Work Phone: [facility] 09-28-2022 11:22-0400 Heart rate 80 /min [facility]C Jorge Maryanne [facility] 09-28-2022 11:22-0400 Respiratory rate 16 /min [facility]C Jorge Maryanne [facility]URNER OFF [facility] 09-28-2022 10:41-0400 Body mass index (BMI) [Ratio] 39.9 kg/m2 [facility]URNER [employer]-C Jorge Maryanne [facility] OFF [facility] 09-28-2022 10:41-0400 Body temperature 96.7 [degF] [facility]URNER [facility]-C Jorge Maryanne [facility] 09-28-2022 10:41-0400 Body weight 92.71 kg [facility]-C Jorge Maryanne [facility] 09-28-2022 10:41-0400 Diastolic blood pressure 90 mm[Hg] TURNER [facility]-C Jorge Maryanne [facility] 09-28-2022 10:41-0400 SaO2% (BldA) [Mass fraction] 97 % [facility]-C Jorge Maryanne [facility] 09-28-2022 10:41-0400 Systolic blood pressure 125 mm[Hg] TURNER [facility]-C Jorge Maryanne [facility]UR[facility] OFF [facility] 08-28-2022 14:18-0400 Body mass index (BMI) [Ratio] 36.6 kg/m2 [facility]C Jorge Maryanne [facility]NER [facility] Work Phone: [facility] 08-28-2022 14:18-0400 Body weight 93.89 kg [facility]-C Jroge Maryanne [facility]URNER OFF Work Phone: [facility] 08-28-2022 12:59-0400 Body height 160.02 cm [facility]-C Jorge Maryanne [facility] Work Phone: [facility] 08-28-2022 12:59-0400 Body temperature 97.5 [degF] [facility]-C Jorge Maryanne [facility] Work Phone: [facility] 08-28-2022 12:59-0400 Diastolic blood pressure 77 mm[Hg] TURNER OFF-C Jorge Maryanne [facility]URNER OFF Work Phone: [facility] 08-28-2022 12:59-0400 Heart rate 100 /min [facility]-C Jorge Maryanne TURNER OFF Work Phone: [facility] 08-28-2022 12:59-0400 Respiratory rate 16 /min [facility]-C Jorge Maryanne TURNER OFF Work Phone: [facility] 08-28-2022 12:59-0400 SaO2% (BldA) [Mass fraction] 92 % [facility]URNER OFF-C Jorge Maryanne TURNER OFF Work Phone: [facility] 08-28-2022 12:59-0400 Systolic blood pressure 133 mm[Hg] TURNER OFF-C Jorge Maryanne TURNER OFF Work Phone: [facility] 08-18-2022 11:46-0400 Body mass index (BMI) [Ratio] 40.8 kg/m2 [facility]-C Jorge Maryanne [facility]URNER [facility] Work Phone: [facility] 08-18-2022 11:46-0400 Body weight 94.97 kg [facility]URNER OFF-C Jorge Maryanne TURNER OFF Work Phone: [facility] 08-18-2022 11:46-0400 Diastolic blood pressure 73 mm[Hg] TURNER OFF-C Jorge Maryanne TURNER OFF Work Phone: [facility] 08-18-2022 11:46-0400 Systolic blood pressure 108 mm[Hg] TURNER OFF-C Jorge Maryanne TURNER OFF Work Phone: [facility] 06-21-2022 08:37-0400 Body height 152.4 cm Jorge Maryanne ARCH CUSHION PRESS OPERATOR.PLANT OPERATIONS MANAGER Work Phone: [facility] 06-21-2022 08:37-0400 Body weight 96.16 kg Jorge Maryanne ARCH CUSHION PRESS OPERATOR.PLANT OPERATIONS MANAGER Work Phone: [facility] 06-21-2022 08:37-0400 Diastolic blood pressure 80 mm[Hg] Jorge Maryanne ARCH CUSHION PRESS OPERATOR.PLANT OPERATIONS MANAGER Work Phone: [facility] 06-21-2022 08:37-0400 Heart rate 98 /min Jorge Maryanne ARCH CUSHION PRESS OPERATOR.PLANT OPERATIONS MANAGER Work Phone: [facility] 06-21-2022 08:37-0400 SaO2% (BldA) [Mass fraction] 98 % Jorge Maryanne ARCH CUSHION PRESS OPERATOR.PLANT OPERATIONS MANAGER Work Phone: [facility] 06-21-2022 08:37-0400 Systolic blood pressure 112 mm[Hg] Jorge Maryanne ARCH CUSHION PRESS OPERATOR.PLANT OPERATIONS MANAGER Work Phone: [facility] 05-24-2022 14:19-0500 Body height 152.4 cm Jorge Maryanne ARCH CUSHION PRESS OPERATOR.PLANT OPERATIONS MANAGER Work Phone: [facility] 05-24-2022 14:19-0500 Body weight 94.35 kg Jorge Maryanne ARCH CUSHION PRESS OPERATOR.PLANT OPERATIONS MANAGER Work Phone: [facility] 05-24-2022 14:19-0500 Diastolic blood pressure 74 mm[Hg] Jorge Maryanne ARCH CUSHION PRESS OPERATOR.PLANT OPERATIONS MANAGER Work Phone: [facility] 05-24-2022 14:19-0500 Heart rate 88 /min Jorge Maryanne ARCH CUSHION PRESS OPERATOR.PLANT OPERATIONS MANAGER Work Phone: [facility] 05-24-2022 14:19-0500 SaO2% (BldA) [Mass fraction] 98 % Jorge Maryanne ARCH CUSHION PRESS OPERATOR.PLANT OPERATIONS MANAGER Work Phone: [facility] 05-24-2022 14:19-0500 Systolic blood pressure 110 mm[Hg] Jorge Maryanne ARCH CUSHION PRESS OPERATOR.PLANT OPERATIONS MANAGER Work Phone: [facility] 05-09-2022 15:50-0500 Body temperature 100.99 [degF] Freedom Graham ARCH CUSHION PRESS OPERATOR.PLANT OPERATIONS MANAGER Work Phone: [facility] 05-09-2022 15:50-0500 Body weight 96.07 kg Freedom Graham ARCH CUSHION PRESS OPERATOR.PLANT OPERATIONS MANAGER Work Phone: [facility] 05-09-2022 15:50-0500 Diastolic blood pressure 88 mm[Hg] Freedom Graham ARCH CUSHION PRESS OPERATOR.PLANT OPERATIONS MANAGER Work Phone: [facility] 05-09-2022 15:50-0500 Heart rate 121 /min Freedom Graham ARCH CUSHION PRESS OPERATOR.PLANT OPERATIONS MANAGER Work Phone: [facility] 05-09-2022 15:50-0500 Respiratory rate 18 /min Freedom Graham ARCH CUSHION PRESS OPERATOR.PLANT OPERATIONS MANAGER Work Phone: [facility] 05-09-2022 15:50-0500 SaO2% (BldA) [Mass fraction] 98 % Freedom Graham ARCH CUSHION PRESS OPERATOR.PLANT OPERATIONS MANAGER Work Phone: [facility] 05-09-2022 15:50-0500 Systolic blood pressure 136 mm[Hg] Freedom Graham ARCH CUSHION PRESS OPERATOR.PLANT OPERATIONS MANAGER Work Phone: [facility] 01-18-2022 09:54-0400 Body temperature 98.4 [degF] [facility] Work Phone: 01-18-2022 09:54-0400 Diastolic blood pressure 59 mm[Hg] [facility] Work Phone: 01-18-2022 09:54-0400 Heart rate 82 /min [facility] Work Phone: 01-18-2022 09:54-0400 Respiratory rate 16 /min [facility] Work Phone: 01-18-2022 09:54-0400 SaO2% (BldA) [Mass fraction] 97 % [facility] Work Phone: 01-18-2022 09:54-0400 Systolic blood pressure 117 mm[Hg] [facility] Work Phone: 01-16-2022 19:57-0400 Body height 152.4 cm [facility] Work Phone: 01-16-2022 19:57-0400 Body mass index (BMI) [Ratio] 43 kg/m2 [facility] Work Phone: 01-16-2022 19:57-0400 Body weight 99.79 kg [facility] Work Phone: 01-10-2022 12:22-0400 Body mass index (BMI) [Ratio] 39 kg/m2 [facility] Work Phone: 01-10-2022 09:20-0400 Body height 152.4 cm [facility] Work Phone: 01-10-2022 09:20-0400 Body temperature 98.2 [degF] [facility] Work Phone: 01-10-2022 09:20-0400 Body weight 90.71 kg [facility] Work Phone: 01-10-2022 09:20-0400 Diastolic blood pressure 87 mm[Hg] [facility] Work Phone: 01-10-2022 09:20-0400 Heart rate 118 /min [facility] Work Phone: 01-10-2022 09:20-0400 Respiratory rate 22 /min [facility] Work Phone: 01-10-2022 09:20-0400 SaO2% (BldA) [Mass fraction] 97 % [facility] Work Phone: 01-10-2022 09:20-0400 Systolic blood pressure 123 mm[Hg] [facility] Work Phone: 10-25-2021 08:32-0400 Diastolic blood pressure 80 mm[Hg] DR JOEL MARIN MD [facility] 10-25-2021 08:32-0400 Heart rate 74 /min DR JOEL MARIN MD [facility] 10-25-2021 08:32-0400 Respiratory rate 18 /min DR JOEL MARIN MD [facility] 10-25-2021 08:32-0400 Systolic blood pressure 132 mm[Hg] DR JOEL MARIN MD [facility] 10-24-2021 23:43-0400 Diastolic blood pressure 83 mm[Hg] DR JOEL MARIN MD [facility] 10-24-2021 23:43-0400 Heart rate 73 /min DR JOEL MARIN MD [facility] 10-24-2021 23:43-0400 Respiratory rate 18 /min DR JOEL MARIN MD [facility] 10-24-2021 23:43-0400 Systolic blood pressure 121 mm[Hg] DR JOEL MARIN MD [facility] 10-24-2021 14:56-0400 Diastolic blood pressure 68 mm[Hg] DR JOEL MARIN MD [address] [place] [address] 10-24-2021 14:56-0400 Heart rate 78 /min DR JOEL MARIN MD [address] 10-24-2021 14:56-0400 Respiratory rate 18 /min DR JOEL MARIN MD [address] 10-24-2021 14:56-0400 Systolic blood pressure 110 mm[Hg] DR JOEL MARIN MD [address] [place] [address] 10-24-2021 06:07-0400 Body temperature 98.06 [degF] DR JOEL MARIN MD [address] 10-24-2021 06:07-0400 Heart rate 80 /min DR JOEL MARIN MD [address] 10-24-2021 06:07-0400 Mean blood pressure 82 mm[Hg] DR JOEL MARIN MD [address] [place] [address] 10-24-2021 06:07-0400 Reason For Taking VItal Signs DR JOEL MARIN MD [address] [place] [address] 10-23-2021 21:36-0400 Body temperature 98.24 [degF] DR JOEL MARIN MD [address] [place] [address] 10-23-2021 21:36-0400 Heart rate 69 /min DR JOEL MARIN MD [address] 10-22-2021 14:40-0400 Mean blood pressure 90 mm[Hg] DR JOEL MARIN MD [facility] 10-22-2021 06:50-0400 Reason For Taking VItal Signs DR JOEL MARIN MD [facility] 10-21-2021 21:51-0400 Body temperature 98.24 [degF] DR JOEL MARIN MD [facility] 10-21-2021 21:51-0400 Reason For Taking VItal Signs DR JOEL MARIN MD [facility] 10-20-2021 06:55-0400 Mean blood pressure 84 mm[Hg] DR JOEL MARIN MD [facility] 10-17-2021 04:57-0400 Body temperature 98.42 [degF] DR JOEL MARIN MD [facility] 10-15-2021 22:59-0400 Body temperature 98.06 [degF] DR JOEL MARIN MD [facility] 10-11-2021 13:05-0400 Body temperature 97.81 [degF] Jitendra Mudrakola DO Work Phone: [facility] 10-11-2021 13:05-0400 Diastolic blood pressure 88 mm[Hg] Jitendra Mudrakola DO Work Phone: [facility] 10-11-2021 13:05-0400 Heart rate 83 /min Jitendra Mudrakola DO Work Phone: [facility] 10-11-2021 13:05-0400 Respiratory rate 18 /min Jitendra Mudrakola DO Work Phone: [facility] 10-11-2021 13:05-0400 SaO2% (BldA) [Mass fraction] 99 % Jitendra Mudrakola DO Work Phone: [facility] 10-11-2021 13:05-0400 Systolic blood pressure 130 mm[Hg] Jitendra Mudrakola DO Work Phone: [facility] Encounters Encounter Date Encounter Type Care Provider Facility Start: 10-07-2024 ambulatory Jorge Madden [facility] Facilit y:[facility] Start: 10-03-2024 End: 10-03-2024 Patient encounter procedure Gonzalo Tyson MD Work Phone: Neurology Comment on above: Seizure disorder (HC C) (Primary Dx); History of traumatic injury of head; History of alcohol abuse; Family history of seizures; Chronic intractable headache, unspecified headache type; Claustrophobia Start: 09-23-2024 End: 09-23-2024 ambulatory Jorge Comerr [facility] Work Phone: -Laboratory Start: 09-23-2024 End: 09-23-2024 Patient encounter procedure Aly Carlos DO -Laboratory Work Phone: Start: 09-23-2024 End: 09-23-2024 Patient encounter procedure Aly Carlos DO -[facility] Work Phone: Start: 09-23-2024 End: 09-23-2024 ambulatory Jorge Comerr [facility] Work Phone: -[facility] Start: 09-22-2024 End: 09-22-2024 Patient encounter procedure Clau Abebe PA-C Work Phone: Orthopaedics Comment on above: Left carpal tunnel s yndrome (Primary Dx) Start: 09-22-2024 End: 09-23-2024 ambulatory CLAU ABEBE Facility:[facility] Start: 09-11-2024 End: 09-11-2024 ambulatory TINO NICHOLSON Facility:[facility] Start: 07-30-2024 End: 07-30-2024 Telephone encounter Jorge Madden [employer] PRESS OPERATOR.PLANT OPERATIONS MANAGER Work Phone: [facility] [place] Comment on above: US results Start: 07-29-2024 End: 07-29-2024 ambulatory Jorge Comerr [facility] Work Phone: [facility] Work Phone: Start: 07-29-2024 End: 07-29-2024 Patient encounter procedure Princess Blake [facility] Work Phone: Start: 07-28-2024 End: 07-28-2024 Refill Jorge Madden ARCH C[employer] PRESS OPERATOR.PLANT OPERATIONS MANAGER Work Phone: [facility] [place] Comment on above: Med Change Request Start: 07-28-2024 End: 07-28-2024 Patient encounter procedure Princess Blake [facility] OFF-C -[facility] Work Phone: Start: 07-28-2024 End: 07-28-2024 ambulatory Jorge Madden TURNER OFF-C Work Phone: [facility] Work Phone: Start: 07-28-2024 End: 07-28-2024 Patient encounter procedure Jorge Madden ARCH CUSHION PRESS OPERATOR.PLANT OPERATIONS MANAGER Work Phone: [facility] Comment on above: Seizure disorder (HC C) (Primary Dx); Chronic obstructive pulmonary disease with acute exacerbation (HCC); Hypothyroidism, unspecified type; Anxiety; Tobacco use disorder; MAI (obstructive sleep apnea); Colon cancer screening; Seasonal allergies; Boil of groin Start: 07-28-2024 End: 07-29-2024 ambulatory JORGE MADDEN Facility:[facility] Start: 07-28-2024 End: 07-28-2024 ambulatory Princess Blake TURNER OFF Facility:[facility] Start: 06-06-2024 End: 08-06-2024 Follow-up encounter Jennifer Agarwal APRN.BLACK TOP RAKER Work Phone: [facility] [place] Start: 06-03-2024 End: 08-03-2024 Follow-up encounter Jorge Madden ARCH CUSHION PRESS OPERATOR.PLANT OPERATIONS MANAGER Work Phone: [facility] [place] Start: 06-02-2024 End: 06-02-2024 ambulatory JORGE MADDEN Facility:[facility] Start: 06-02-2024 End: 06-02-2024 Patient encounter procedure Jorge Madden ARCH CUSHION PRESS OPERATOR.PLANT OPERATIONS MANAGER Work Phone: [facility] [place] Comment on above: Chronic obstructive pulmonary disease with acute exacerbation (HCC) (Primary Dx); Seizure disorder (HCC); Left arm pain; Chronic left shoulder pain; Bilateral carpal tunnel syndrome; Hypothyroidism, unspecified type; Screening for colon cancer; Encounter for therapeutic drug monitoring; Anxiety; History of alcohol abuse Start: 05-09-2024 End: 05-09-2024 [facility] Start: 05-05-2024 End: 05-05-2024 Refill Jorge Madden ARCH CUSHION PRESS OPERATOR.PLANT OPERATIONS MANAGER Work Phone: Family [facility] Comment on above: Refill Request Start: 2024 End: 2024 Telephone encounter Jorge Madden ARCH CUSHION PRESS OPERATOR.PLANT OPERATIONS MANAGER Work Phone: [facility] Comment on above: results Start: 02-28-2024 End: 03-03-2024 Telephone encounter Tino Nicholson MD Work Phone: Orthopaedics Comment on above: Appointment Start: 02-28-2024 End: 02-28-2024 [facility] Start: 02-28-2024 End: 02-28-2024 Office outpatient visit 25 minutes Jennifer Agarwal ARCH CUSHION PRESS OPERATOR.BLACK TOP RAKER Work Phone: [facility] [place] Comment on above: Acute cough (Primary Dx); Chronic obstructive pulmonary disease with acute exacerbation (HCC); Sinobronchitis; Seizure disorder (HCC) Start: 02-26-2024 End: 02-29-2024 Telephone encounter Jorge Madden APRN.PLANT OPERATIONS MANAGER Work Phone: [address] [place] [address] Comment on above: Surgery Cancelled Start: 02-19-2024 End: 02-19-2024 ambulatory Jorge Comerr ARCH CUSHION PRESS OPERATOR.PLANT OPERATIONS MANAGER Work Phone: [facility] [place] Comment on above: Cough Start: 02-13-2024 End: 02-15-2024 Telephone encounter Tino Nicholson MD Work Phone: Orthopaedics Comment on above: Patient Update Appointment Start: 01-30-2024 End: 01-31-2024 Telephone encounter Tino Nicholson MD Work Phone: Orthopaedics Comment on above: Schedule Surgery Start: 01-28-2024 End: 01-28-2024 ambulatory JORGE COMERR Facility:[facility] Start: 01-28-2024 End: 01-28-2024 Patient encounter procedure Tino Nicholson MD Work Phone: Orthopaedics Comment on above: Shoulder impingement (Primary Dx); Left arm pain; Bilateral carpal tunnel syndrome; Carpal tunnel syndrome of left wrist Start: 01-11-2024 End: 01-11-2024 Refill Jorge Maryanne ARCH CUSHION PRESS OPERATOR.PLANT OPERATIONS MANAGER Work Phone: [facility] [place] Comment on above: Refill Request Start: 12-19-2023 End: 01-30-2024 Telephone encounter Jorge Maryanne ARCH CUSHION PRESS OPERATOR.PLANT OPERATIONS MANAGER Work Phone: [facility] [place] Comment on above: EEG Results Neurology Consult Start: 12-10-2023 End: 12-10-2023 ambulatory Jorge Comerr TURNER OFF Facility:[facility] Start: 11-28-2023 End: 11-28-2023 Telephone encounter Jorge Maryanne ARCH CUSHION PRESS OPERATOR.PLANT OPERATIONS MANAGER Work Phone: [facility] [place] Comment on above: Results Start: 11-27-2023 End: 11-27-2023 ambulatory JORGE MARYANNE Facility:[facility] Start: 11-27-2023 End: 11-27-2023 Patient encounter procedure Jorge Maryanne ARCH CUSHION PRESS OPERATOR.PLANT OPERATIONS MANAGER Work Phone: [facility] [place] Comment on above: Seizure disorder (HC C) (Primary Dx); Memory deficit; Left arm pain; Bilateral carpal tunnel syndrome; Seasonal allergies; Boil of groin; Anxiety; Tobacco use disorder; History of alcohol abuse; Encounter for immunization Start: 11-23-2023 End: 11-23-2023 ambulatory JORGE MARYANNE Neurology Comment on above: EMG Start: 11-23-2023 End: 11-23-2023 Patient encounter procedure Emg 1 Neur [facility] (Max Weight: 850) Neurology Start: 11-19-2023 End: 11-21-2023 Telephone encounter Jorge Maryanne ARCH CUSHION PRESS OPERATOR.PLANT OPERATIONS MANAGER Work Phone: [facility] [place] Comment on above: Patient Question Start: 11-05-2023 End: 11-05-2023 ambulatory Jorge Madden TURNER OFF Facility:[facility] Start: 11-01-2023 End: 01-29-2024 Telephone encounter Jorge Maryanne ARCH CUSHION PRESS OPERATOR.PLANT OPERATIONS MANAGER Work Phone: [facility] Comment on above: CT scan denial from insurance Start: 10-22-2023 Telephone encounter Jorge Tinajero er ARCH CUSHION PRESS OPERATOR.PLANT OPERATIONS MANAGER Work Phone: [facility] [place] Comment on above: Results Start: 10-19-2023 Telephone encounter Jorge Tinajero er ARCH CUSHION PRESS OPERATOR.PLANT OPERATIONS MANAGER Work Phone: [facility] [place] Comment on above: Medication Problem Start: 10-19-2023 End: 10-19-2023 ambulatory JORGE MADDEN Facility:[facility] Start: 10-19-2023 End: 10-19-2023 Patient encounter procedure Jorge Madden ARCH CUSHION PRESS OPERATOR.PLANT OPERATIONS MANAGER Work Phone: [facility] Comment on above: Seizure disorder (HC C) (Primary Dx); Anxiety; Chronic obstructive pulmonary disease, unspecified COPD type (HCC); Fatty liver; Hypothyroidism, unspecified type; Vitamin D deficiency; IFG (impaired fasting glucose); Obesity, Class II, BMI 35-39.9; Encounter for screening mammogram for breast cancer; Encounter for therapeutic drug monitoring Start: 09-07-2023 Patient encounter procedure Mabel Mondragon MD Work Phone: Neurology Comment on above: Seizure disorder (HC C) (Primary Dx) Start: 09-07-2023 Telephone encounter Mabel Mondragon MD Work Phone: Neurology Comment on above: Future Appointment ( [place], Any) Refill Request Start: 09-03-2023 Telephone encounter Jorge Tinajero er ARCH CUSHION PRESS OPERATOR.PLANT OPERATIONS MANAGER Work Phone: [facility] Comment on above: Patient Update (Reas on for MRI Not Fully Completed); Appointment ([facility]) Start: 09-03-2023 End: 09-03-2023 Subsequent hospital visit by physician Keyla [facility] (I-Stat) Work Phone: Cat Scan Comment on above: Seizure disorder (HC C) [G40.909] Start: 08-30-2023 Telephone encounter Jorge Tinajero er ARCH CUSHION PRESS OPERATOR.PLANT OPERATIONS MANAGER Work Phone: [facility] [place] Comment on above: Orders Start: 08-27-2023 End: 08-27-2023 Subsequent hospital visit by physician [facility] (I-Stat) Work Phone: Cat Scan Comment on above: Canceled (CC cx: Nickolas garza) Start: 08-24-2023 Telephone encounter Jorge Cleav er ARCH CUSHION PRESS OPERATOR.PLANT OPERATIONS MANAGER Work Phone: [facility] Comment on above: Results Start: 08-07-2023 Telephone encounter Jorge Cleav er ARCH CUSHION PRESS OPERATOR.PLANT OPERATIONS MANAGER Work Phone: [facility] [place] Comment on above: Results Start: 08-06-2023 Telephone encounter Jorge Cleav er ARCH CUSHION PRESS OPERATOR.PLANT OPERATIONS MANAGER Work Phone: [facility] [place] Comment on above: Medication Question Start: 08-06-2023 End: 08-06-2023 Patient encounter procedure Jorge Maryanne ARCH CUSHION PRESS OPERATOR.PLANT OPERATIONS MANAGER Work Phone: [facility] [place] Comment on above: Seizure disorder (HC C) (Primary Dx); Situational anxiety Start: 08-04-2023 ambulatory Alba Carrillo RN NURS E FINANCIAL REPORTING CONSULTANT Comment on above: Medication Question Seizures Start: 07-23-2023 Telephone encounter Jorge Cleav er ARCH CUSHION PRESS OPERATOR.PLANT OPERATIONS MANAGER Work Phone: [facility] [place] Comment on above: Results Start: 07-20-2023 End: 07-20-2023 Patient encounter procedure Jorge Maryanne ARCH CUSHION PRESS OPERATOR.PLANT OPERATIONS MANAGER Work Phone: Internal Medicine [facility] Comment on above: Seizure disorder (HC C) (Primary Dx); Alkaline phosphatase elevation; Fatty liver; Hypothyroidism, unspecified type; Vitamin D deficiency; MAI (obstructive sleep apnea); IFG (impaired fasting glucose); DUB (dysfunctional uterine bleeding); Left arm pain; Oral thrush; Encounter for therapeutic drug monitoring Start: 07-05-2023 Refill Juan C maxwell MD Work Phone: [facility] [place] Comment on above: Refill Request Start: 06-04-2023 End: 06-04-2023 Subsequent hospital visit by physician [facility] Work Phone: Radiology Comment on above: Alkaline phosphatase elevation [R74.8] Start: 05-07-2023 Telephone encounter Jorge Cleav er ARCH CUSHION PRESS OPERATOR.PLANT OPERATIONS MANAGER Work Phone: [facility] [place] Comment on above: Results Start: 05-03-2023 Telephone encounter Jenniefr Kimberly meadows ARCH CUSHION PRESS OPERATOR.BLACK TOP RAKER Work Phone: [facility] Comment on above: Pain; Results (Labs) Start: 04-20-2023 End: 04-20-2023 Subsequent hospital visit by physician Xr [facility] [place] Work Phone: Radiology Comment on above: Chronic left shoulde r pain [M25.512, G89.29] Start: 01-19-2023 End: 01-19-2023 Patient encounter procedure Jorge Madden ARCH CUSHION PRESS OPERATOR.PLANT OPERATIONS MANAGER Work Phone: [facility] [place] Comment on above: Seizure disorder (HC C) (Primary Dx); Chronic obstructive pulmonary disease, unspecified COPD type (HCC); Hypothyroidism, unspecified type; Vitamin D deficiency; IFG (impaired fasting glucose); Tobacco use disorder; Encounter for immunization; Encounter for therapeutic drug monitoring Start: 01-17-2023 Refill Jorge Madden ARCH CUSHION PRESS OPERATOR.PLANT OPERATIONS MANAGER Work Phone: [facility] Comment on above: Refill Request Start: 01-03-2023 Telephone encounter Jorge Tinajero er ARCH CUSHION PRESS OPERATOR.PLANT OPERATIONS MANAGER Work Phone: [facility] [place] Comment on above: Patient Update Start: 12-25-2022 End: 12-25-2022 Patient encounter procedure Jorge Madden ARCH CUSHION PRESS OPERATOR.PLANT OPERATIONS MANAGER Work Phone: [facility] [place] Comment on above: Chronic obstructive pulmonary disease with acute exacerbation (HCC) (Primary Dx); Subacute cough; Tobacco use disorder Start: 12-14-2022 Telephone encounter Jorge Cleav er ARCH CUSHION PRESS OPERATOR.PLANT OPERATIONS MANAGER Work Phone: [facility] Comment on above: Medication Problem Start: 12-05-2022 ambulatory Joslyn Fuentes RN NURSE O N CALL Comment on above: Lab & Test Results Start: 12-04-2022 End: 12-04-2022 Subsequent hospital visit by physician Ubaldo [facility] [place] Work Phone: Radiology Comment on above: Subacute cough [R05. 2] Start: 12-04-2022 End: 12-04-2022 Patient encounter procedure Freedom Graham ARCH CUSHION PRESS OPERATOR.PLANT OPERATIONS MANAGER Work Phone: [facility] Comment on above: Subacute cough (Prim [place] Dx) Start: 11-24-2022 End: 11-24-2022 ambulatory TURNER OFF-C Jorge Comerr TURNER OFF [facility] Work Phone: Start: 11-24-2022 End: 11-24-2022 Patient encounter procedure TURNER OFF-C Jorge Maryanne TURNER OFF [facility]-Ultrasound, [facility] Work Phone: Start: 11-14-2022 Telephone encounter Jorge Tinajero er ARCH CUSHION PRESS OPERATOR.PLANT OPERATIONS MANAGER Work Phone: [facility] Comment on above: US left armpit resul ts Start: 11-06-2022 End: 11-06-2022 ambulatory TURNER OFF-C Jorge Maryanne [facility] Work Phone: Start: 11-06-2022 End: 11-06-2022 Patient encounter procedure TURNER OFF-C Jorge Comerr TURNER OFF [facility]-Laboratory, Specimen Work Phone: Start: 11-06-2022 End: 11-06-2022 Patient encounter procedure TURNER OFF-C Jorge Comerr TURNER OFF [facility] Work Phone: Start: 11-01-2022 End: 11-01-2022 Patient encounter procedure TURNER OFF-C Jorge Maryanne TURNER OFF [facility], [facility] Work Phone: Start: 10-23-2022 End: 10-23-2022 ambulatory TURNER OFF-C Jorge Maryanne TURNER OFF [facility] Work Phone: Start: 10-23-2022 End: 10-23-2022 Patient encounter procedure TURNER OFF-C Jorge Maryanne TURNER OFF [facility]-Laboratory, [facility] Start: 10-23-2022 End: 10-23-2022 Patient encounter procedure TURNER OFF-C Jorge Maryanne TURNER OFF [facility] Work Phone: Start: 10-20-2022 Telephone encounter Atiya Bass Comment on above: Social Work Services Start: 10-20-2022 End: 10-20-2022 Patient encounter procedure Jorge Comerr ARCH CUSHION PRESS OPERATOR.PLANT OPERATIONS MANAGER Work Phone: [facility] [place] Comment on above: Pelvic kidney (Prima ry Dx); Uterine leiomyoma, unspecified location; Dysmenorrhea; Seizure disorder (HCC); Mass of left axilla; History of alcohol abuse; Inability to return to living situation; Lives in sheltered housing; Lack of access to transportation; Patient not earning income; Encounter for screening involving social determinants of health (SDoH) Start: 09-28-2022 End: 09-28-2022 Emergency department patient visit TURNER OFF-Bart Madden TURNER OFF [facility]-Emergency Department Work Phone: Start: 09-25-2022 Telephone encounter Jorge Tinajero er ARCH CUSHION PRESS OPERATOR.PLANT OPERATIONS MANAGER Work Phone: [facility] [place] Comment on above: Patient Request Start: 09-20-2022 End: 09-20-2022 Patient encounter procedure TURNER OFF-Bart Madden TURNER OFF [facility]-Pulmonary Services/Neurology Work Phone: Start: 09-18-2022 End: 09-18-2022 Patient encounter procedure TURNER OFF-Bart Madden TURNER OFF [facility], [facility] Work Phone: Start: 09-11-2022 Refill Jorge Madden ARCH CUSHION PRESS OPERATOR.PLANT OPERATIONS MANAGER Work Phone: [facility] [place] Comment on above: Refill Request Start: 08-28-2022 End: 08-28-2022 Emergency department patient visit TURNER OFF-Bart Madden TURNER OFF Work Phone: [facility]-Emergency Department Start: 08-18-2022 End: 08-18-2022 Patient encounter procedure TURNER OFF-Bart Madden TURNER OFF Work Phone: [facility] Emergency Department Start: 07-19-2022 ambulatory Jorge Comerr ARCH CUSHION PRESS OPERATOR.PLANT OPERATIONS MANAGER Work Phone: Internal Medicine [place] Comment on above: Question regarding P HENYTOIN/DILANTIN Start: 07-19-2022 Telephone encounter Jorge Tinajero er ARCH CUSHION PRESS OPERATOR.PLANT OPERATIONS MANAGER Work Phone: [facility] Comment on above: Medication Problem Start: 07-10-2022 Telephone encounter Jorge Cleav er ARCH CUSHION PRESS OPERATOR.PLANT OPERATIONS MANAGER Work Phone: Internal Medicine [facility] Comment on above: Orders Start: 07-05-2022 ambulatory Jorge Comerr ARCH CUSHION PRESS OPERATOR.PLANT OPERATIONS MANAGER Work Phone: Internal Medicine [facility] Comment on above: Results Start: 07-05-2022 E-mail encounter fro m caregiver Jorge Maryanne ARCH CUSHION PRESS OPERATOR.PLANT OPERATIONS MANAGER Work Phone: [facility] Start: 07-04-2022 End: 07-04-2022 Subsequent hospital visit by physician [facility] (I-Stat) Work Phone: Cat Scan Comment on above: Colitis [K52.9] Start: 06-22-2022 Telephone encounter Jorge Cleav er ARCH CUSHION PRESS OPERATOR.PLANT OPERATIONS MANAGER Work Phone: [facility] [place] Comment on above: Patient Question (Re garding lab test) Start: 06-21-2022 End: 06-21-2022 Patient encounter procedure Jorge Maryanne ARCH CUSHION PRESS OPERATOR.PLANT OPERATIONS MANAGER Work Phone: Internal Medicine [facility] Comment on above: Wellness examination (Primary Dx); Colitis; Seizure disorder (HCC); Abdominal pain, suprapubic; Screening for HPV (human papillomavirus); Lower abdominal pain; Screen for STD (sexually transmitted disease); Encounter for therapeutic drug monitoring Start: 06-21-2022 End: 06-21-2022 Patient encounter status Jorge Comerr ARCH CUSHION PRESS OPERATOR.PLANT OPERATIONS MANAGER Work Phone: Internal Medicine [facility] Start: 06-01-2022 Telephone encounter Jorge Cleav er ARCH CUSHION PRESS OPERATOR.PLANT OPERATIONS MANAGER Work Phone: Internal Medicine [facility] Comment on above: Medication Question Start: 05-30-2022 Telephone encounter Jorge Cleav er ARCH CUSHION PRESS OPERATOR.PLANT OPERATIONS MANAGER Work Phone: [facility] [place] Comment on above: referrals/orders to [facility] Start: 05-26-2022 Telephone encounter Jorge Cleav er ARCH CUSHION PRESS OPERATOR.PLANT OPERATIONS MANAGER Work Phone: Internal Medicine [place] Comment on above: Results; Nurse Triag e Call Start: 05-24-2022 End: 05-24-2022 Patient encounter procedure Jorge Maryanne ARCH CUSHION PRESS OPERATOR.PLANT OPERATIONS MANAGER Work Phone: Internal Medicine [place] Comment on above: Recurrent major depr essive disorder, in partial remission (HCC) (Primary Dx); Anxiety; History of alcohol abuse; Seizure disorder (HCC); Hypothyroidism, unspecified type; Vitamin D deficiency; Colitis; Obesity, Class III, BMI >= 40; Screening for HIV (human immunodeficiency virus); Special screening examination for viral disease; Encounter for screening mammogram for breast cancer; Screening for colon cancer; Screening for lipid disorders; Encounter for therapeutic drug monitoring Start: 05-10-2022 Telephone encounter Boom Campbell MD Work Phone: [place] [facility] Comment on above: Results Start: 05-09-2022 End: 05-09-2022 Patient encounter procedure Freedom Graham APRN.CNP Work Phone: [place] [facility] Comment on above: Sinobronchitis (Prim [place] Dx) Start: 01-18-2022 End: 01-25-2022 Evaluation and management of inpatient BRITTANY Stein [facility] Start: 01-16-2022 End: 01-18-2022 Emergency department patient visit [facility]-Emergency Department Start: 01-10-2022 End: 01-10-2022 Emergency department patient visit [facility]-Emergency Department Start: 10-15-2021 End: 10-25-2021 Emergency department patient visit DR JOEL MARIN MD [facility] Start: 10-11-2021 End: 10-11-2021 Emergency department patient visit Jitendra Ortiz DO Work Phone: [facility] Start: 08-25-2021 End: 09-02-2021 Evaluation and management of inpatient PHYSICIAN [facility] Start: 07-14-2021 End: 07-18-2021 ambulatory PHYSICIAN [facility] Start: 05-02-2021 End: 05-06-2021 ambulatory PHYSICIAN [facility] Procedures Date Procedure Procedure Detail Performing Clinician Start: 09-23-2024 Albumin/Globulin ratio Jorge HOLLEY Work Phone: Start: 09-23-2024 Antibody measurement Ro sa Maryanne TURNER OFF-C Work Phone: Comment on above: The atypical pANCA p attern has been observed in asignificant percentage of patients with ulcerative colitis,primary sclerosing cholangitis and autoimmune hepatitis.Performed at: - [facility] [id number] [place], [place] [id number] Director: Wilfrid Mancia PhD, Phone: [phone] at: - [facility] [id number] Director: Blaise Mcgraw MD, Phone: [phone] Start: 09-23-2024 Antibody to centrome re measurement Jorge Maryanne TURNER OFF-C Work Phone: Comment on above: Test not performed Previous reported re sult: TNP AIEdited by: YOANA on 09/28/24:0407 AMENDED REPORT 09/28/24 0407 ANTI-CENT B previously reported as: Test not performed Start: 09-23-2024 Antibody to extracta ble nuclear antigen measurement Jorge Maryanne TURNER OFF-C Work Phone: Comment on above: Test not performed Previous reported re sult: TNP AIEdited by: YOANA on 09/28/24:0407 AMENDED REPORT 09/28/24 040 MORENO Ab previously reported as: Test not performed Start: 09-23-2024 Antibody to YANETH-1 measurement Jorge Maryanne TURNER OFF-C Work Phone: Comment on above: Test not performed Previous reported re sult: TNP AIEdited by: YOANA on 09/28/24:0407 AMENDED REPORT 09/28/24 0407 ANTI-YANETH previously reported as: Test not performed Start: 09-23-2024 Antibody to lupus La protein measurement Jorge Maryanne TURNER OFF-C Work Phone: Start: 09-23-2024 Antibody to SS-A measurement Jorge Maryanne TURNER OFF-C Work Phone: Start: 09-23-2024 Autoantibody measurement Jorge Maryanne TURNER OFF-C Work Phone: Comment on above: Test not performed Previous reported re sult: TNP AIEdited by: YOANA on 09/28/24:0407 AMENDED REPORT 09/28/24 0407 ANTICHROMATIN previously reported as: Test not performed Start: 09-23-2024 Endomysial antibody IgA level Jorge Comerr TURNER OFF-C Work Phone: Start: 09-23-2024 Hepatitis A virus an tibody, IgM type Jorge Madden TURNER OFF-C Work Phone: Comment on above: A negative anti-HAV IgM result suggests no recent orcurrent HAV infection. Start: 09-23-2024 Hepatitis B core ant ibody measurement, IgM type Jorge Madden TURNER OFF-C Work Phone: Start: 09-23-2024 Hepatitis C antibody measurement Jorge Comerr TURNER OFF-C Work Phone: Start: 09-23-2024 Immunoglobulin M measurement Jorge Comerr TURNER OFF-C Work Phone: Start: 09-23-2024 In-vitro immunologic test Jorge Comerr TURNER OFF-C Work Phone: Comment on above: QuantiFERON-TB Gold Plus is a qualitative indirect test forM tuberculosis infection (including disease) and isintended for use in conjunction with risk assessment,radiography, and other medical and diagnostic evaluations.The QuantiFERON-TB Gold Plus result is determined bysubtracting the Nil value from either TB antigen (Ag)value. The Mitogen tube serves as a control for the test. Client Requested Fla gA response to M tuberculosis antigens has been detected.If patient is at low risk for Tuberculosis, the resultshould be interpreted with caution and repeat testing on anew specimen is recommended (ATS/IDSA/CDC Clinical PracticeGuidelines, 2017). False positives can also occur due toinfection by M kansasii, M szulgai, or M marinum.The specimen received for QuantiFERON testing was incubatedby the ordering institution. Specific procedures outlinedin our Directory of Services and in the package insert forthe QuantiFERON Gold (In Tube) test must be followed toenable for proper stimulation of cells for the productionof interferon gamma. Chemiluminescence immunoassaymethodology Start: 09-23-2024 POT ROOM SUPERVISOR antibody measurement Jorge Maryanne TURNER OFF-C Work Phone: Comment on above: Test not performed Previous reported re sult: TNP AIEdited by: YOANA on 09/28/24:406 AMENDED REPORT 09/28/24406 POT ROOM SUPERVISOR Ab previously reported as: Test not performed Start: 09-23-2024 Scallop RAST Jorge Cleav er TURNER OFF-C Work Phone: Start: 09-23-2024 Sesame seed RAST Jorge C leaver TURNER OFF-C Work Phone: Comment on above: Performed at: [address] [id number] Director: Wilfrid Mancia PhD, Phone: [phone] at: [address] [id number] Director: Blaise Mcgraw MD, Phone: [phone] Start: 09-23-2024 Shrimp RAST Jorge Cleav er TURNER OFF-C Work Phone: Start: 07-29-2024 Pelvic echography Jorge Maryanne TURNER OFF-C Work Phone: Start: 07-28-2024 Gram stain microscopy R mai Maryanne TURNER OFF-C Work Phone: Start: 07-28-2024 Source specific culture Jorge Maryanne TURNER OFF-C Work Phone: Start: 07-28-2024 Liquid based cervica l cytology screening Jorge Maryanne TURNER OFF-C Work Phone: Comment on above: NEGATIVE FOR INTRAEP ITHELIAL LESION OR MALIGNANCY. This liquid based Th inPrep(R) pap test was screened withthe use of an image guided system. Start: 01-28-2024 Arthrocentesis aspir &/inj major jt/bursa w/o us Tino Nicholson MD Work Phone: Start: 11-23-2023 Nerve conduction pina dies 5-6 studies Jorge Comerr ARCH CUSHION PRESS OPERATOR.PLANT OPERATIONS MANAGER Work Phone: Start: 09-03-2023 Ct head/brain w/o & w/contrast material Juan C Villarreal MD Work Phone: Start: 06-04-2023 Us abdominal real ti me w/image limited Jorge Madden ARCH CUSHION PRESS OPERATOR.PLANT OPERATIONS MANAGER Work Phone: Start: 04-20-2023 Radex shoulder compl ete minimum 2 views Jorge Madden ARCH CUSHION PRESS OPERATOR.PLANT OPERATIONS MANAGER Work Phone: Start: 01-19-2023 INFLUENZA VACCINE, A GE 6 MO - 64 YR, QUADRIVALENT (AFLURIA, FLULAVAL, FLUZONE) Jorge Madden ARCH CUSHION PRESS OPERATOR.PLANT OPERATIONS MANAGER Work Phone: Start: 12-04-2022 Radiologic exam chest 2 views Freedom Graham ARCH CUSHION PRESS OPERATOR.PLANT OPERATIONS MANAGER Work Phone: Start: 11-24-2022 Pelvic echography TURNER OFF-C Jorge Maryanne TURNER OFF Start: 11-01-2022 Ultrasonography of limb TURNER OFF-C Jorge Maryanne TURNER OFF Start: 09-28-2022 SARS-CoV-2 & FLU Antigen (Rapid) TURNER OFF-C Jorge Maryanne TURNER OFF Start: 09-28-2022 Plain chest X-ray TURNER OFF-C Jorge Maryanne TURNER OFF Start: 09-18-2022 Pelvic echography TURNER OFF-C Jorge Maryanne TURNER OFF Start: 09-18-2022 Transvaginal echography TURNER OFF-C Jorge Maryanne TURNER OFF Start: 07-04-2022 Ct abdomen & pelvis w/contrast material Jorge Madden ARCH CUSHION PRESS OPERATOR.PLANT OPERATIONS MANAGER Work Phone: Start: 05-24-2022 Lipid 1996 panel - S adelina or Plasma Joslyn Fuentes RN Start: 01-10-2022 CT of abdomen and pe lvis without contrast Enteric Bacteriology Viral antigen assay Plan of Treatment Date Care Activity Detail Author Start: 07-28-2029 Screening for malignant neoplasm of cervix Cervical Cancer Screening [facility] Start: 06-22-2027 HPV TESTING HPV TESTING [facility] Start: 06-22-2027 PAP TESTING PAP TESTING [facility] Start: 06-22-2027 Screening for malignant neoplasm of cervix [facility] Start: 06-03-2027 Diabetes Screening Diabetes Screening [facility] Start: 05-25-2027 Lipid 1996 panel - Serum or Plasma Lipid Screening [facility] Start: 05-25-2027 Lipid panel Lipid Screening [facility] Start: 05-25-2027 LIPID SCREEN LIPID SCREEN [facility] Start: 10-18-2026 Diabetes Screening Diabetes Screening [facility] Start: 07-19-2026 Diabetes Screening Diabetes Screening [facility] Start: 07-14-2026 Lipid panel Lipids [facility] Start: 04-20-2026 Diabetes Screening Diabetes Screening [facility] Start: 01-19-2026 Diabetes Screening Diabetes Screening [facility] Start: 10-20-2025 DIABETES SCREEN DIABETES SCREEN [facility] Start: 10-20-2025 Diabetes Screening Diabetes Screening [facility] Start: 07-28-2025 Annual PCP Team Chronic Disease Visit Annual PCP Team Chronic Disease Visit [facility] Start: 06-21-2025 DIABETES SCREEN DIABETES SCREEN [facility] Start: 06-02-2025 Annual PCP Team Chronic Disease Visit Annual PCP Team Chronic Disease Visit [facility] Start: 05-24-2025 DIABETES SCREEN DIABETES SCREEN [facility] Start: 12-10-2024 End: 12-10-2024 Patient encounter procedure 12/10/2024 11:30 AM EDT Office Visit Neurology [address] [place] [address] Janny Mclaughlin PA-C [address] [place] [address] 2 month seizure disorder follow up Neurology Comment on above: 2 month seizure disorder follow up Start: 11-26-2024 Annual PCP Team Chronic Disease Visit Annual PCP Team Chronic Disease Visit [facility] Start: 11-24-2024 Influenza vaccination Influenza Vaccine (#1) [facility] Start: 10-28-2024 End: 10-28-2024 Patient encounter procedure 10/28/2024 8:20 AM EDT Office Visit Internal Medicine Juan J [address] [place] [address] Jorge Madden APRN.PLANT OPERATIONS MANAGER [address] [place] [address] 3 month follow up Internal Medicine Juan J Comment on above: 3 month follow up Start: 10-20-2024 End: 10-20-2024 Patient encounter procedure 10/20/2024 2:30 PM EDT Office Visit Orthopaedics [address] [place] [address] Tino Nicholson MD [address] [place] [address] Post op Left CTR Orthopaedics Comment on above: Post op Left CTR Start: 10-18-2024 Annual PCP Team Chronic Disease Visit Annual PCP Team Chronic Disease Visit [facility] Start: 10-03-2024 End: 10-03-2024 Patient encounter procedure Neurology Comment on above: Seizure disorder (HCC) [G40.909] Seizure disorder (HC C) [G40.909], Dilantin ER 300 mg BID, EEG 09/25/22 Start: 09-23-2024 Acute hepatitis 2000 panel - Serum [facility] Start: 09-23-2024 C reactive protein [Mass/volume] in Serum or Plasma [facility] Start: 09-23-2024 CBC W Auto Differential panel - Blood [facility] Start: 09-23-2024 Celiac disease screen [facility] Start: 09-23-2024 Comprehensive metabolic 2000 panel - Serum or Plasma [facility] Start: 09-23-2024 Erythrocyte sedimentation rate [facility] Start: 09-23-2024 Hemoglobin A1c/Hemoglobin.total in Blood [facility] Start: 09-23-2024 Immunoglobulin measurement [facility] Start: 09-23-2024 In-vitro immunologic test [facility] Start: 09-23-2024 Iron [Mass/mass] in Unspecified specimen [facility] Start: 09-23-2024 Lactate dehydrogenase measurement [facility] Start: 09-23-2024 Prothrombin time [facility] Start: 09-23-2024 Serum immunofixation [facility] Start: 09-23-2024 Thyroid stimulating hormone measurement [facility] Start: 09-23-2024 [facility] Start: 08-05-2024 Annual PCP Team Chronic Disease Visit Annual PCP Team Chronic Disease Visit [facility] Start: 07-28-2024 Liquid based cervical cytology screening [facility] Start: 07-19-2024 Annual PCP Team Chronic Disease Visit Annual PCP Team Chronic Disease Visit [facility] Start: 07-01-2024 End: 07-01-2024 Patient encounter procedure 07/01/2024 9:00 AM EDT Office Visit Internal Medicine Juan J [address] [place] [address] Jorge Madden APRN.PLANT OPERATIONS MANAGER [address] [place], [place] [address] 4 week follow up Internal Medicine [facility] Comment on above: 4 week follow up Start: 06-02-2024 End: 09-01-2024 CBC W Auto Differential panel - Blood [facility] Work Phone: Comment on above: Expected: 06/02/2024, Expires: Start: 06-02-2024 End: 09-01-2024 Comprehensive metabolic 2000 panel - Serum or Plasma [facility] Comment on above: Expected: 06/02/2024, Expires: Start: 06-02-2024 End: 09-01-2024 Phenytoin [Mass/volume] in Serum or Plasma [facility] Comment on above: Expected: 06/02/2024, Expires: Start: 06-02-2024 End: 09-01-2024 Thyrotropin [Units/volume] in Serum or Plasma [facility] Comment on above: Expected: 06/02/2024, Expires: Start: 06-02-2024 End: 09-01-2024 Thyroxine (T4) free [Mass/volume] in Serum or Plasma [facility] Comment on above: Expected: 06/02/2024, Expires: Start: 06-02-2024 End: 09-01-2024 Triiodothyronine (T3) Free [Mass/volume] in Serum or Plasma [facility] Comment on above: Expected: 06/02/2024, Expires: Start: 06-02-2024 End: 06-02-2024 Patient encounter procedure 06/02/2024 7:20 AM EDT Office Visit Internal Medicine [facility] [address] [place], [place] [address] Jorge Madden APRN.PLANT OPERATIONS MANAGER [address] [place], [place] [id number] 3 month f/u Internal Medicine [facility] Comment on above: 3 month f/u Start: 05-09-2024 End: 05-09-2024 ambulatory 05/09/2024 8:30 AM EST Results Only Juan J [facility] Draw Station [address] [place] [address] Juan J [facility] Station Start: 04-20-2024 Annual PCP Team Chronic Disease Visit Annual PCP Team Chronic Disease Visit [facility] Start: 04-07-2024 End: 04-07-2024 Patient encounter procedure 04/07/2024 9:30 AM EST Office Visit Orthopaedics [address] [place] [address] Tino Nicholson MD [address] [place] [address] Post op Left CTR Orthopaedics Comment on above: Post op Left CTR Start: 03-10-2024 End: 03-10-2024 Patient encounter procedure 03/10/2024 9:00 AM EST Office Visit Orthopaedics [address] [place] [address] Clau Abebe PA-C [address] [place] [address] Post op Left CTR Orthopaedics Comment on above: Post op Left CTR Start: 02-29-2024 End: 02-29-2024 Admission to same day surgery center 02/29/2024 9:59 AM EST - 02/29/2024 10:53 AM EST Surgery [facility] [address] [place] [id number] Tino Nicholson MD [address] [place] [address] DECOMPRESSION NERVE MEDIAN CARPAL TUNNEL [facility] Comment on above: DECOMPRESSION NERVE MEDIAN CARPAL TUNNEL Start: 02-29-2024 End: 02-29-2024 Neuroplasty &/transpos median nrv carpal tunne DECOMPRESSION NERVE MEDIAN CARPAL TUNNEL Left carpal tunnel syndrome 02/29/2024 9:59 AM EST ME OR Start: 02-29-2024 Subsequent hospital visit by physician 02/29/2024 9:59 AM EST Hospital Encounter [facility] [address] [place] [address] Tino Nicholson MD [address] [place] [address] Left carpal tunnel syndrome [G56.02] [facility] Comment on above: Left carpal tunnel syndrome [G56.02] Start: 02-28-2024 End: 05-29-2024 Phenytoin [Mass/volume] in Serum or Plasma [facility] Work Phone: Comment on above: Expected: 02/28/2024, Expires: Start: 02-27-2024 End: 02-27-2024 Anesthesia consultation 02/27/2024 1:00 PM EST PAT Pre Anesthesia [address] [place] [address] 1, [facility] [address] [place] [address] DECOMPRESSION NERVE MEDIAN CARPAL TUNNEL [[id number]] - Wrist - Left Pre Anesthesia Comment on above: DECOMPRESSION NERVE MEDIAN CARPAL TUNNEL [[id number]] - Wrist - Left Start: 02-26-2024 End: 02-26-2024 Patient encounter procedure 02/26/2024 11:00 AM EST Office Visit Internal Medicine [facility] [place] [address] [place] [address] Jennifer Agarwal APRN.BLACK TOP RAKER [address] [place] [address] 3 month follow up Internal Medicine [facility] Comment on above: 3 month follow up Start: 02-14-2024 End: 02-14-2024 Anesthesia consultation 02/14/2024 9:20 AM EST PAT Pre Anesthesia [address] [place] [address] 2, [facility] [address] [place] [address] DECLINED VV Pre Anesthesia Comment on above: DECLINED VV Start: 01-28-2024 End: 01-28-2024 Patient encounter procedure 01/28/2024 9:45 AM EST Office Visit Orthopaedics [address] [place] [address] Tino Nicholson MD [address] [place] [address] Left arm pain [M79.602] Orthopaedics Comment on above: Left arm pain [M79.602] Start: 01-20-2024 Annual PCP Team Chronic Disease Visit Annual PCP Team Chronic Disease Visit [facility] Start: 12-26-2023 Annual PCP Team Chronic Disease Visit Annual PCP Team Chronic Disease Visit [facility] Start: 11-27-2023 End: 11-27-2023 Patient encounter procedure 11/27/2023 10:20 AM EDT Office Visit Internal Medicine Juan J [address] [facility], [place] [address] Jorge Madden APRN.PLANT OPERATIONS MANAGER [address] [place], [place] [id number] 4 week follow up Internal Medicine Juan J Comment on above: 4 week follow up Start: 11-25-2023 Covid-19 Vaccine ( season) Covid-19 Vaccine ( season) [facility] Start: 11-25-2023 Covid-19 Vaccine ( season) Covid-19 Vaccine ( season) [facility] Start: 11-25-2023 Influenza vaccination Influenza Vaccine (#1) [facility] Start: 11-23-2023 End: 11-23-2023 ambulatory Neurology Comment on above: Left arm pain [M79.602] r L UE Start: 11-20-2023 End: 11-20-2023 Patient encounter procedure 11/20/2023 10:40 AM EDT Office Visit Internal Medicine [facility] [place] [address] [facility] [place] [id number] Jorge Madden APRN.PLANT OPERATIONS MANAGER [address] [place], [place] [id number] 4 week follow up Internal Medicine Juan J Comment on above: 4 week follow up Start: 10-22-2023 End: 10-22-2023 ambulatory 10/22/2023 8:15 AM EDT Procedure Neurology [address] [place] [address] belinda CORDOBA Neurology Comment on above: belinda CORDOBA Start: 10-21-2023 ANNUAL PCP TEAM CHRONIC DISEASE VISIT ANNUAL PCP TEAM CHRONIC DISEASE VISIT [facility] Start: 10-19-2023 End: 01-18-2024 25-hydroxyvitamin D3 [Mass/volume] in Serum or Plasma [facility] Comment on above: Expected: 10/19/2023, Expires: Start: 10-19-2023 End: 01-18-2024 Comprehensive metabolic 2000 panel - Serum or Plasma [facility] Work Phone: Comment on above: Expected: 10/19/2023, Expires: Start: 10-19-2023 End: 01-18-2024 Hemoglobin A1c in Blood [facility] Comment on above: Expected: 10/19/2023, Expires: Start: 10-19-2023 End: 01-18-2024 lamoTRIgine [Mass/volume] in Serum or Plasma [facility] Comment on above: Expected: 10/19/2023, Expires: Start: 10-19-2023 End: 01-18-2024 Phenytoin [Mass/volume] in Serum or Plasma [facility] Comment on above: Expected: 10/19/2023, Expires: Start: 10-19-2023 End: 01-18-2024 Thyrotropin [Units/volume] in Serum or Plasma [facility] Comment on above: Expected: 10/19/2023, Expires: Start: 10-19-2023 End: 10-19-2023 Patient encounter procedure 10/19/2023 10:20 AM EDT Office Visit Internal Medicine [facility] [address] [place] [address] Jorge Madden APRN.[facility] [address] [place], [place] [address] 3 month follow up Internal Medicine [facility] Comment on above: 3 month follow up Start: 10-08-2023 Subsequent hospital visit by physician 10/08/2023 Hospital Encounter HOSP MAIN [id number] [address] [place] [address] Ceasar Adler MD, PhD [address] [facility] [address] [place] [address] Epilepsy, unspecified, not intractable, without status epilepticus [G40.909] [facility] Comment on above: Epilepsy, unspecified, not intractable, without status epilepticus [G40.909] Start: 10-08-2023 End: 10-08-2023 Patient encounter procedure Neurology Comment on above: NEW CONSULT ADMIT EMU Start: 09-10-2023 End: 09-10-2023 ambulatory Neurology Comment on above: Left arm pain [M79.602] L UE symptoms??? r L UE symptoms??? Start: 09-03-2023 End: 09-03-2023 Patient encounter procedure 09/03/2023 11:00 AM EDT Appointment Cat Scan [address] [place] [address] CT BRAIN WO/W IVCON Cat Scan Comment on above: CT BRAIN WO/W IVCON Start: 08-31-2023 End: 11-30-2023 Phenytoin [Mass/volume] in Serum or Plasma PHENYTOIN/DILANTIN Lab Routine Encounter for therapeutic drug monitoring Expected: 08/31/2023, Expires: 11/30/2023 [facility] Work Phone: Comment on above: Expected: 08/31/2023, Expires: Start: 08-27-2023 Subsequent hospital visit by physician 08/27/2023 9:00 AM EDT Hospital Encounter Cat Scan [address] [place] [id number] Canceled (CC cx: Financial) Cat Scan Comment on above: Canceled (CC cx: Financial) Start: 08-06-2023 End: 08-06-2023 Patient encounter procedure 08/06/2023 9:20 AM EDT Office Visit Internal Medicine [facility] [address] [place] [address] Jorge Madden APRN.PLANT OPERATIONS MANAGER [address] [place] [address] Seizure Sunday night; See nurse Triage note Internal Medicine [facility] Comment on above: Seizure Sunday night; See nurse Triage n ote Start: 07-20-2023 ANNUAL PCP TEAM CHRONIC DISEASE VISIT ANNUAL PCP TEAM CHRONIC DISEASE VISIT [facility] Start: 06-22-2023 ANNUAL PCP TEAM CHRONIC DISEASE VISIT ANNUAL PCP TEAM CHRONIC DISEASE VISIT [facility] Start: 05-25-2023 ANNUAL PCP TEAM CHRONIC DISEASE VISIT ANNUAL PCP TEAM CHRONIC DISEASE VISIT [facility] Start: 01-19-2023 End: 04-20-2023 25-hydroxyvitamin D3 [Mass/volume] in Serum or Plasma [facility] Work Phone: Comment on above: Expected: 01/19/2023, Expires: Start: 01-19-2023 End: 04-20-2023 Comprehensive metabolic 2000 panel - Serum or Plasma [facility] Work Phone: Comment on above: Expected: 01/19/2023, Expires: Start: 01-19-2023 End: 04-20-2023 Hemoglobin A1c in Blood [facility] Work Phone: Comment on above: Expected: 01/19/2023, Expires: Start: 01-19-2023 End: 04-20-2023 Thyrotropin [Units/volume] in Serum or Plasma [facility] Work Phone: Comment on above: Expected: 01/19/2023, Expires: Start: 01-19-2023 End: 04-20-2023 Thyroxine (T4) free [Mass/volume] in Serum or Plasma [facility] Work Phone: Comment on above: Expected: 01/19/2023, Expires: 4 Start: 01-19-2023 End: 04-20-2023 Triiodothyronine (T3) Free [Mass/volume] in Serum or Plasma [facility] Work Phone: Comment on above: Expected: 01/19/2023, Expires: 4 Start: 12-04-2022 End: 12-18-2022 SARS-CoV-2 (COVID-19) RNA [Presence] in Respiratory specimen by FLOR with probe detection [facility] Work Phone: Comment on above: Expected: 12/04/2022, Expires: 3 Start: 11-24-2022 Covid-19 Vaccine () Covid-19 Vaccine () [facility] Start: 11-24-2022 Influenza vaccination [facility] Start: 09-25-2022 End: 11-25-2022 CBC W Auto Differential panel - Blood CBC + DIFF Lab Routine Encounter for therapeutic drug monitoring Expected: 09/25/2022, Expires: 11/25/2022 [facility] Work Phone: Comment on above: Expected: 09/25/2022, Expires: 3 Start: 09-25-2022 End: 11-25-2022 Comprehensive metabolic 2000 panel - Serum or Plasma COMP METABOLIC PANEL Lab Routine Encounter for therapeutic drug monitoring Expected: 09/25/2022, Expires: 11/25/2022 [facility] Work Phone: Comment on above: Expected: 09/25/2022, Expires: 3 Start: 09-25-2022 End: 11-25-2022 Phenytoin [Mass/volume] in Serum or Plasma PHENYTOIN/DILANTIN Lab Routine Encounter for therapeutic drug monitoring Expected: 09/25/2022, Expires: 11/25/2022 [facility] Work Phone: Comment on above: Expected: 09/25/2022, Expires: 3 Start: 09-22-2022 Influenza vaccination INFLUENZA (#1) [facility] Comment on above: Postponed from 11/24/2021 (Declined at t his time) Start: 09-20-2022 [facility] Start: 07-10-2022 End: 09-09-2022 Bacteria identified in Urine by Culture [facility] Work Phone: Comment on above: Expected: 07/10/2022, Expires: 3 Start: 07-10-2022 End: 09-09-2022 Urinalysis complete panel - Urine [facility] Work Phone: Comment on above: Expected: 07/10/2022, Expires: 3 Start: 06-21-2022 End: 08-21-2022 CHL,GC,TRICH HSV CHL,GC,TRICH HSV Lab Routine Abdominal pain, suprapubic Lower abdominal pain Screen for STD (sexually transmitted disease) Expected: 06/21/2022, Expires: 08/21/2022 [facility] Work Phone: Comment on above: Expected: 06/21/2022, Expires: 3 Start: 06-21-2022 End: 08-21-2022 Comprehensive metabolic 2000 panel - Serum or Plasma [facility] Work Phone: Comment on above: Expected: 06/21/2022, Expires: 3 Start: 06-21-2022 End: 08-21-2022 NUSWAB VAGINITIS PLUS (VG+) W/AILYN 6 SPECIES NUSWAB VAGINITIS PLUS (VG+) W/AILYN 6 SPECIES Lab Routine Abdominal pain, suprapubic Lower abdominal pain Screen for STD (sexually transmitted disease) Expected: 06/21/2022, Expires: 08/21/2022 [facility] Work Phone: Comment on above: Expected: 06/21/2022, Expires: 3 Start: 05-24-2022 End: 07-24-2022 25-hydroxyvitamin D3 [Mass/volume] in Serum or Plasma [facility] Work Phone: Comment on above: Expected: 05/24/2022, Expires: 3 Start: 05-24-2022 End: 07-24-2022 CBC panel - Blood by Automated count [facility] Work Phone: Comment on above: Expected: 05/24/2022, Expires: 3 Start: 05-24-2022 End: 07-24-2022 Comprehensive metabolic 2000 panel - Serum or Plasma [facility] Work Phone: Comment on above: Expected: 05/24/2022, Expires: 3 Start: 05-24-2022 End: 07-24-2022 Hepatitis C virus Ab [Presence] in Serum [facility] Work Phone: Comment on above: Expected: 05/24/2022, Expires: 3 Start: 05-24-2022 End: 07-24-2022 HIV 1+2 Ab [Presence] in Serum or Plasma by Immunoassay [facility] Work Phone: Comment on above: Expected: 05/24/2022, Expires: 3 Start: 05-24-2022 End: 07-24-2022 Lipid 1996 panel - Serum or Plasma [facility] Work Phone: Comment on above: Expected: 05/24/2022, Expires: 3 Start: 05-24-2022 End: 07-24-2022 Phenytoin [Mass/volume] in Serum or Plasma [facility] Work Phone: Comment on above: Expected: 05/24/2022, Expires: 3 Start: 05-24-2022 End: 07-24-2022 Thyrotropin [Units/volume] in Serum or Plasma [facility] Work Phone: Comment on above: Expected: 05/24/2022, Expires: 3 Start: 01-16-2022 Referral to service [facility] Work Phone: Start: 01-16-2022 End: 01-16-2022 Suicide precautions [facility] Work Phone: Start: 01-10-2022 Enteric precautions [facility] Work Phone: Start: 01-10-2022 Suicide precautions [facility] Work Phone: Start: 11-24-2021 Influenza vaccination [facility] Start: 10-13-2021 End: 10-13-2021 Patient encounter procedure 10/13/2021 Office Visit Internal Medicine Jessica Vazquez, BA - PLANT OPERATIONS MANAGER [address] [address] [facility] Internal Medicine Start: 04-21-2021 COVID-19 VACCINE (4 - Booster for Moderna series) COVID-19 VACCINE (4 - Booster for Moderna series) [facility] Start: 04-21-2021 COVID-19 VACCINE (4 - Moderna series) COVID-19 VACCINE (4 - Moderna series) [facility] Start: 2021 COLOGUARD (FIT-DNA) COLOGUARD (FIT-DNA) [facility] Start: 2021 Colonoscopy COLONOSCOPY [facility] Start: 2021 COLORECTAL CANCER SCREENING COLORECTAL CANCER SCREENING [facility] Start: [address] COLONOGRAPHY [facility] Start: 2021 DIABETES SCREEN DIABETES SCREEN [facility] Start: 2021 FECAL OCCULT BLOOD FECAL OCCULT BLOOD [facility] Start: 2021 LIPID SCREEN LIPID SCREEN [facility] Start: 2021 Screening for malignant neoplasm of colon [facility] Start: 2021 SIGMOIDOSCOPY SIGMOIDOSCOPY [facility] Start: 2016 Mammography [facility] Start: 2016 Screening for malignant neoplasm of breast Mammogram Screening [facility] Start: 07-26-2011 HPV TESTING HPV TESTING [facility] Start: 07-26-2011 PAP TESTING PAP TESTING [facility] Start: 2011 Diabetes screen Diabetes screen [facility] Start: 2006 Screening for malignant neoplasm of cervix [facility] Start: 2006 Zoledronic acid therapy Alpha-1 Antitrypsin Deficiency Screening [facility] Start: 1997 Screening for malignant neoplasm of cervix Pap smear [facility] Start: 1995 DTaP/Tdap/Td vaccine ( - Tdap) DTaP/Tdap/Td vaccine ( - Tdap) [facility] Start: 1995 Hepatitis B Vaccine (1 of 3 - 19+ 3-dose series) Hepatitis B Vaccine (1 of 3 - 19+ 3-dose series) [facility] Start: 1995 Urine microalbumin profile [facility] Start: 1994 HEPATITIS C SCREENING HEPATITIS C SCREENING [facility] Start: 1994 HIV SCREENING HIV SCREENING [facility] Start: 1994 Spirometry Spirometry [facility] Start: 1988 Depression Monitoring Depression Monitoring [facility] Start: 1982 PNEUMOCOCCAL (1 - PCV) PNEUMOCOCCAL (1 - PCV) [facility] Start: 1982 Pneumococcal 0-64 years Vaccine (1 - PCV) Pneumococcal 0-64 years Vaccine (1 - PCV) [facility] Start: 1982 Pneumococcal vaccination Pneumococcal Vaccine (1 - PCV) [facility] Start: 1976 COVID-19 Vaccine (#1) COVID-19 Vaccine (#1) [facility] Start: 1976 HEPATITIS B (1 of 3 - 3-dose series) HEPATITIS B (1 of 3 - 3-dose series) [facility] Start: 1976 Hepatitis B Vaccine (1 of 3 - 3-dose series) Hepatitis B Vaccine (1 of 3 - 3-dose series) [facility] Alanine aminotransfe rase [Enzymatic activity/volume] in Serum or Plasma [facility] Albumin [Mass/volume ] in Serum or Plasma [facility] Albumin [Moles/volum e] in Serum or Plasma [facility] Albumin/Globulin ratio [facility] Alkaline phosphatase [Enzymatic activity/volume] in Serum or Plasma [facility] Anion gap in Serum o r Plasma [facility] Antibody to lupus La protein measurement [facility] Antibody to SS-A measurement [facility] BACTERIAL VAGINOSIS AMPLIFICATION BACTERIAL VAGINOSIS AMPLIFICATION Lab Routine Abdominal pain, suprapubic Lower abdominal pain Screen for STD (sexually transmitted disease) Ordered: 06/21/2022 [facility] Work Phone: Comment on above: Ordered: 06/21/2022 BACTERIAL VAGINOSIS AMPLIFICATION BACTERIAL VAGINOSIS AMPLIFICATION Lab Routine Abdominal pain, suprapubic Screen for STD (sexually transmitted disease) 06/21/2022 3:03 PM EDT [facility] Work Phone: Bilirubin, total measurement [facility] BUN/Creatinine ratio [facility] C. difficile DNA Amplification C. difficile DNA Amplification [facility] Work Phone: Calcium [Mass/volume ] in Serum or Plasma [facility] AILYN / TRICHOMONA S AMPLIFICATION AILYN / TRICHOMONAS AMPLIFICATION Microbiology Routine Abdominal pain, suprapubic Lower abdominal pain Screen for STD (sexually transmitted disease) Ordered: 06/21/2022 [facility] Work Phone: Comment on above: Ordered: 06/21/2022 Carbon dioxide, tota l [Moles/volume] in Central venous blood [facility] Clam IgE Ab [Units/volume] in Serum [facility] Clostridioides diffi cile DNA [Presence] in Unspecified specimen by FLOR with probe detection [facility] Work Phone: Codfish IgE Ab [Units/volume] in Serum [facility] Ailey IgE Ab [Units/volume] in Serum [facility] Cow milk IgE Ab [Units/volume] in Serum [facility] Creatinine [Mass/vol ume] in Serum or Plasma [facility] End: 07-21-2023 Ct abdomen & pelvis w/contrast material CT ABD/PEL W IVCON Radiology Routine Colitis Abdominal pain, suprapubic Lower abdominal pain 1 Occurrences starting 06/21/2022 until 07/21/2023 [facility] Work Phone: Comment on above: 1 Occurrences starting 06/21/2022 until 07/21/2023 End: 09-04-2024 CT Head WO and W contrast IV CT BRAIN WO/W IVCON Radiology Routine Seizure disorder (HCC) 1 Occurrences starting 08/06/2023 until 09/04/2024 [facility] Work Phone: Comment on above: 1 Occurrences starting 08/06/2023 until 09/04/2024 End: 09-28-2024 CT Head WO and W contrast IV CT BRAIN WO/W IVCON Radiology Routine Seizure disorder (HCC) 1 Occurrences starting 08/30/2023 until 09/28/2024 [facility] Work Phone: Comment on above: 1 Occurrences starting 08/30/2023 until 09/28/2024 End: 11-17-2024 CT Head WO and W contrast IV CT BRAIN WO/W IVCON Radiology Routine Seizure disorder (HCC) 1 Occurrences starting 10/19/2023 until 11/17/2024 [facility] Comment on above: 1 Occurrences starting 10/19/2023 until 11/17/2024 End: 11-02-2025 CT Head WO contrast CT BRAIN WO IVCON Radiology Routine Seizure disorder (HCC) History of traumatic injury of head Chronic intractable headache, unspecified headache type History of alcohol abuse Family history of seizures 1 Occurrences starting 10/03/2024 until 11/02/2025 [facility] Work Phone: Comment on above: 1 Occurrences starting 10/03/2024 until 11/02/2025 Cytology report of Cervical or vaginal smear or scraping Cyto stain.thin prep [facility] End: 11-20-2024 DBT Breast - bilateral screening SVETA SCREENING W JOSE Radiology Routine Screening mammogram for breast cancer 1 Occurrences starting 10/22/2023 until 11/20/2024 [facility] Work Phone: Comment on above: 1 Occurrences starting 10/22/2023 until 11/20/2024 DNA double strand Ab [Units/volume] in Serum [facility] Egg white RAST [facility] Electrophoresis: [id number] [facility] Electrophoresis: jenfifer ma globulin [facility] End: 07-19-2024 EMG(NEURO/NI) EMG(NEURO/NI) EMG Routine Left arm pain 1 Occurrences starting 07/20/2023 until 07/19/2024 [facility] Work Phone: Comment on above: 1 Occurrences starting 07/20/2023 until 07/19/2024 End: 09-06-2024 EPIL EEG LEAD PLACEMENT EPIL EEG LEAD PLACEMENT NEUROLOGY Routine Seizure disorder (HCC) 1 Occurrences starting 09/07/2023 until 09/06/2024 [facility] Work Phone: Comment on above: 1 Occurrences starting 09/07/2023 until 09/06/2024 End: 05-25-2023 EPIL EEG ROUTINE EPIL EEG ROUTINE NEUROLOGY Routine Seizure disorder (HCC) 1 Occurrences starting 05/24/2022 until 05/25/2023 [facility] Work Phone: Comment on above: 1 Occurrences starting 05/24/2022 until 05/25/2023 End: 10-18-2024 EPIL EEG ROUTINE EPIL EEG ROUTINE NEUROLOGY Routine Seizure disorder (HCC) 1 Occurrences starting 10/19/2023 until 10/18/2024 [facility] Comment on above: 1 Occurrences starting 10/19/2023 until 10/18/2024 EPIL VEEG ADMIT TO EMU/PMU EPIL VEEG ADMIT TO EMU/PMU NEUROLOGY Routine Seizure disorder (HCC) Ordered: 09/07/2023 [facility] Comment on above: Ordered: 09/07/2023 Erythrocyte mean corpuscular volume determination [facility] Gastrointestinal pathogens panel - Stool by FLOR with probe detection [facility] Work Phone: Globulin measurement [facility] Glucose [Mass/volume ] in Serum or Plasma [facility] Hematocrit [Volume Fraction] of Blood [facility] Hemoglobin [Mass/vol ume] in Blood [facility] Hepatitis A virus Ig M Ab [Presence] in Serum [facility] Hepatitis B core ant ibody measurement, IgM type [facility] Hepatitis B surface antigen measurement [facility] Hepatitis C antibody measurement [facility] HPV MRNA W/REFLEX TO GENOTYPES 16, 18/45 HPV MRNA W/REFLEX TO GENOTYPES 16, 18/45 Lab Routine Screening for HPV (human papillomavirus) Ordered: 06/21/2022 [facility] Work Phone: Comment on above: Ordered: 06/21/2022 IgA [Mass/volume] in Serum or Plasma [facility] IgE [Units/volume] i n Serum or Plasma [facility] IgG [Mass/volume] in Serum or Plasma [facility] IgM [Mass/volume] in Serum or Plasma [facility] Influenza virus A an d B RNA and SARS-CoV-2 (COVID-19) N gene panel - Respiratory specimen by FLOR with probe detection COVID WITH FLUA+B, ROUTINE Microbiology Routine Sinobronchitis Ordered: 05/09/2022 [facility] Work Phone: Comment on above: Ordered: 05/09/2022 INR in Blood by Coagulation assay [facility] Laboratory data interpretation [facility] Leukocytes [#/volume ] in Blood [facility] End: 06-23-2023 SVETA SCREENING SVETA SCREENING Radiology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 Quetiapine, Aspirin, Fish Containing Products, Pear, Shellfish Derived, Trazodone, Erythromycin, and Latex This note was partially generated using Z[employer]io voice recognition system, and there may be some incorrect words, spellings, and punctuation that were not noted in checking the note before saving. Clau Abebe PA-C Patient presents with: Left Wrist - Post Op AMB ROOMING INTAKE FLOWSHEET DATA Pain Pain Level: 8 Pain Location: Hand-Left Description: (Pulling) Duration Amount of Time: (Post op) Frequency: Intermittent Intervention/Comfort measure: (None) Sutures intact. No redness or drainage. Taking no med's for the pain. Patient states she has been having a rash on the back of her right leg that comes and goes. Has been applying OTC calamine lotion helps. documented in this encounter [facility] 09-22-2024 Note HNO ID: [id number] Author: MAXINE VIEIRA MA Service: ? Author Type: Waredresser Type: Progress Notes Filed: 09/22/2024 14:51 Note Text: Patient presents with: Left Wrist - Post Op AMB ROOMING INTAKE FLOWSHEET DATA Pain Pain Level: 8 Pain Location: Hand-Left Description: (Pulling) Duration Amount of Time: (Post op) Frequency: Intermittent Intervention/Comfort measure: (None) Sutures intact. No redness or drainage. Taking no med's for the pain. Patient states she has been having a rash on the back of her right leg that comes and goes. Has been applying OTC calamine lotion helps. [facility] 08-14-2024 Note HNO ID: [id number] Author: ?, ?, ? Service: ? Author Type: ? Type: Progress Notes Filed: 08/14/2024 12:16 Note Text: Jorge Madden put a consult to Gastro in on 07/28/24 for a colonoscopy consult and per note: Patient wants to see [facility] affiliated provider [facility] 08-13-2024 Note Patient Outreach ( WSTR) CATHY CAM ([id number]) 1975 F Date Time Provider Department 08/13/24 JORGE MADDEN ASWSTR During your visit today, we recorded the following information about you: Estephanie Eubanks 08/14/2024 12:16 PM Signed Jorge Madden put a consult to Gastro in on 07/28/24 for a colonoscopy consult and per note: Patient wants to see [facility] affiliated provider Allergies As of Date: 08/13/2024 Noted Allergy Reaction QUETIAPINE 01/18/2022 14 - Other: See Comments Comments: Seizures ASPIRIN 05/02/2021 14 - Other: See Comments 16 - Unknown FISH CONTAINING PRODUCTS 05/02/2021 16 - Unknown 14 - Other: See Comments PEAR 02/07/2017 4 - Hives SHELLFISH DERIVED 01/10/2022 4 - Hives TRAZODONE 05/02/2021 15 - Contraindication-Medical [place]*14 - Other: See Comments Comments: triggers my seizures ERYTHROMYCIN 07/05/2006 11 - Vomiting Comments: Other reaction(s): Nausea And Vomiting LATEX 07/19/2006 2 - Rash 9 - Itching Date Reviewed: 07/28/2024 Reviewed by: Jorge Madden APRN.PLANT OPERATIONS MANAGER - Fully Assessed Reason for Visit: Outpatient Colonoscopy [482] Cmt: Patient is overdue for colorectal cancer screening (has never done). Patient will need consult with Emil Good CNP prior to colorectal cancer screening. Primary Visit Diagnosis:Screening for colorectal cancer [Z12.11, Z12.12] Prescriptions as of 08/14/2024 - albuterol HFA (PROAIR HFA) 90 mcg/actuation inhaler Inhale 2 puffs as instructed every 4 hours as needed. - phenytoin ER 300 mg ER capsule Take 1 capsule by mouth two times a day. take in the morning - fexofenadine (ALINE) 180 mg tablet Take 1 tablet by mouth once daily. - fluticasone-salmeterol (ADVAIR) 500-50 mcg/dose dsdv Inhale 1 Puff as instructed two times a day. - levothyroxine (SYNTHROID) 25 mcg tablet Take 1 tablet by mouth once daily. - tiotropium bromide (SPIRIVA RESPIMAT) 2.5 mcg/actuation inhaler Inhale 2 Puffs as instructed once daily. - Cholecalciferol, Vitamin D3, 25 mcg (1,000 unit) cap Take 1 capsule by mouth once daily. - benzonatate (TESSALON PERLE) 100 mg capsule Take 1-2 capsules by mouth three times a day as needed for cough. - etodolac (LODINE) 400 mg tablet Take 1 tablet by mouth two times a day. - venlafaxine ER (EFFEXOR XR) 150 mg 24 hr capsule Take 1 capsule by mouth once daily. Meds Comments as of 04/12/2007: All medications have been reviewed today/April 12, 2007 Lynda Hardin Lpn Problem List As Of Date 08/13/2024 Noted Resolved SUPRV HIGH-RISK PREG NOS [O09.90] 07/19/2006 07/25/2006 Personal history of pre-term labor [Z87.51] 07/25/2006 05/24/2022 Supervision of other high-risk (V23.89*07/25/2006 05/24/2022 Depressive disorder [F32.A] 02/25/2007 Anxiety [F41.9] 02/25/2007 History of alcohol abuse [F10.11] 02/25/2007 Obesity, Class III, BMI >= 40 [E66.813] 05/24/2022 Major depression, recurrent (HCC) [F33.9] 08/25/2021 Severe major depression, single episode (HCC) [*01/18/2022 05/24/2022 Hypothyroidism [E03.9] 05/24/2022 Seizure disorder (HCC) [G40.909] 05/24/2022 Colitis [K52.9] 06/21/2022 Obesity, Class II, BMI 35-39.9 [E66.812] 10/19/2023 Encounter Status:Closed by ESTEPHANIE EUBANKS on 08/14/24 [facility] 07-30-2024 Telephone encounter Note Shakira noted, reviewed it, she should follow up with relationship assoc. [facility] 07-30-2024 Miscellaneous Notes Shakira noted, reviewed it, she should follow up with relationship assoc. Report printed from [employer]. No need for signed release. On PCP desk for review. [facility]- reports pt wants her US results, done recently, at [facility], faxed to Jorge. Reports Jorge's office would need to have patient sign a release with Jorge's office, and the office would need to fax the release along with the request for US results, to [facility] at fax # [phone]. Asked [facility] if they could have patient sign the release and fax the results to Jorge. [facility] state they can, but they thought maybe Jorge's office already had the release, and they would have to have patient return to their office to sign the release. documented in this encounter [facility] 07-30-2024 Telephone encounter Note Report printed from [employer]. No need for signed release. On PCP desk for review. [facility] 07-30-2024 Telephone encounter Note [facility]- reports pt wants her US results, done recently, at [facility], faxed to Jorge. Reports Jorge's office would need to have patient sign a release with Jorge's office, and the office would need to fax the release along with the request for US results, to [facility] at fax # [phone]. Asked [facility] if they could have patient sign the release and fax the results to Jorge. [facility] state they can, but they thought maybe Jorge's office already had the release, and they would have to have patient return to their office to sign the release. [facility] 07-29-2024 Radiology Diagnostic study note [facility] Imaging Services [address] [place] [address] Pelvic w/ Transvaginal MR#: [id number] Acct: [id number] Name: CATHY CAM Rep #: [id number] : 1975 F 49 From: Colette Walton MD PCP: KISHAN Katz Status: REG CLI Study:Pelvic w/ Transvaginal Date of Exam: 07/29/24 Exam# [id number] Ordering Dr: Princess Blake NP PROCEDURE: PELVIC W/ TRANSVAGINAL, 07/29/2024 REASON FOR EXAM: ABD PAIN, BLEEDING WITH IUD TECHNIQUE: Grayscale and color doppler transabdominal and transvaginal pelvic ultrasound was performed. COMPARISON: 11/24/2022 FINDINGS: Exam is slightly limited by shadowing bowel gas and probably by uterine positioning. Uterus: 11.1 x 5.0 x 5.0 cm, Anteverted. Unremarkable echotexture. Endometrium: Poorly visualized, measured at 3 mm on limited transabdominal imaging. IUD is poorly visualized but appears within the endometrial cavity. Slightly low positioning questioned by staffing and scheduling coordinator on real-time scanning, difficult to confirm on still images obtained. Cervix: Nabothian cysts, some of which demonstrate low-level internal echoes suggesting internal hemorrhagic/proteinaceous components. Right ovary: 3.4 x 2.52.4 cm. Visualized only by limited transabdominal approach. Grossly unremarkable limited transabdominal appearance. Left ovary: 2.3 x 1.9 x 1.6 cm. Visualized only by limited transabdominal approach. Grossly unremarkable limited transabdominal appearance. Free fluid: None visualized. Other: Estimated bladder volume 340 mL. US/Pelvic w/ Transvaginal IMPRESSION: 1. Limited exam. IUD is poorly visualized but appears within the endometrial cavity. Slightly low positioning questioned by staffing and scheduling coordinator on real-time scanning, difficult to confirm on still images obtained. Correlate with exam and consider a repeat exam with transabdominal and transvaginal cine clips as indicated. 2. Additional description as above. Reading Location: [id number] CC: KISHAN Blake; KISHAN Madden ~ Playground Monitor: Signed [facility] 07-28-2024 Evaluation note Diagnosis Onset Date Resolution Pelvic pain acute July 28, 2024 11:16am IUD check up noneactive July 28 11:16am [facility] Work Phone: 1(188) 603-397705-05-2025 Evaluation note* Diagnosis Onset Date Resolution Status Admit Date Pelvic pain acute July 28, 2024 11:16am IUD check up noneactive July 28 11:16am Abdominal pain acute September 23, 2024 10:22am Alcohol abuse acute September 23, 025 10:22am [facility] Work Phone: 1(737) 409-720005-05-2025 Evaluation note* Diagnosis Onset Date Resolution Status Admit Date Pelvic pain acute July 28, 2024 11:16am IUD check up noneactive July 28 11:16am Abdominal pain acute September 23, 2024 10:22am Alcohol abuse acute September 23, 025 10:22am Encounter for screening colonoscopy acute September 23, 2024 1 0:22am [facility] Work Phone: 1(392) 195-730905-05-2025 NoteHNO ID: [id number] Author: JORGE MADDEN APRN.[facility] Service: ? Author Type: Nurse Practitioner Type: Progress Notes Filed: 07/28/2024 09:57 Note Text: SUBJECTIVE Cathy Cam is a 49 year old female here today for a check up on her medical problems. Chief Complaint Patient presents with: Recheck HPI Cathy Cam is a 49 year old female.She is an established patient. She presents today for follow up. Accompanied by her significant other. She notes that lights are still bothering her, seen with the eye doctor and got new glasses. Seeing neuro in September. No other seizure activity noted. Seeing the counseling center for mental health care. Anxiety bad right now. Follow up with relationship assoc, concerned that IUD might of fallen out. Still smoking, breathing is okay. MAI and no CPAP use. Getting frequent and painful boils. Getting these in the arm pits and groin. Possible HS? Taking thyroid medication on an empty stomach. Ears feel full right now. Has not been taking her antihistamine. Her medications were reviewed today and her list is now up to date. Medications Current Outpatient Medications Medication Sig fluticasone-salmeterol (ADVAIR) 500-50 mcg/dose dsdv Inhale 1 Puff as instructed two times a day. levothyroxine (SYNTHROID) 25 mcg tablet Take 1 tablet by mouth once daily. tiotropium bromide (SPIRIVA RESPIMAT) 2.5 mcg/actuation inhaler Inhale 2 Puffs as instructed once daily. Cholecalciferol, Vitamin D3, 25 mcg (1,000 unit) cap Take 1 capsule by mouth once daily. benzonatate (TESSALON PERLE) 100 mg capsule Take 1-2 capsules by mouth three times a day as needed for cough. etodolac (LODINE) 400 mg tablet Take 1 tablet by mouth two times a day. venlafaxine ER (EFFEXOR XR) 150 mg 24 hr capsule Take 1 capsule by mouth once daily. albuterol HFA (PROAIR HFA) 90 mcg/actuation inhaler Inhale 2 puffs as instructed every 4 hours as needed. phenytoin ER 300 mg ER capsule Take 1 capsule by mouth two times a day. take in the morning fexofenadine (ALINE) 180 mg tablet Take 1 tablet by mouth once daily. No current facility-administered medications for this visit. ALLERGIES Allergen Reactions Quetiapine Other: See Comments Seizures Aspirin Other: See Comments, Unknown Fish Containing Pro* Unknown, Other: See Comments Pear Hives Shellfish Derived Hives Trazodone Contraindication-Medical Surgical, Other: See Comments triggers my seizures Erythromycin Vomiting Other reaction(s): Nausea And Vomiting Latex Rash, Itching ACTIVE PROBLEM LIST Obesity, Class II, Bmi 35-39.9 - 10/19/2023 Colitis - 06/21/2022 Obesity, Class III, BMI >= 40 - 05/24/2022 Hypothyroidism - 05/24/2022 Seizure Disorder (Hcc) - 05/24/2022 Major Depression, Recurrent - 08/25/2021 Depressive Disorder - 02/25/2007 Anxiety - 02/25/2007 History of Alcohol Abuse - 02/25/2007 Social History Tobacco Use Smoking status: Every Day Current packs/day: 0.50 Average packs/day: 0.5 packs/day for 18.0 years (9.0 ttl pk-yrs) Types: Cigarettes Smokeless tobacco: Never Vaping Use Vaping status: Never Used Substance Use Topics Alcohol use: Yes Alcohol/week: 3.0 standard drinks of alcohol Types: 3 Cans of Beer (12oz) per week Drug use: No Review of Systems Constitutional: Negative. Respiratory: Negative. Cardiovascular: Negative. OBJECTIVE BP 110/80 Pulse 116 Wt 202 lb 13.2 oz (92.0kg) SpO2 96% LMP 07/07/2024 Physical Exam Vitals and nursing note reviewed. Constitutional: General: She is awake. She is not in acute distress. Appearance: Normal appearance. She is well-developed and well-groomed. She is not ill-appearing, toxic-appearing or diaphoretic. HENT: Head: Normocephalic. Right Ear: External ear normal. Left Ear: External ear normal. Nose: Nose normal. Eyes: General: Vision grossly intact. Conjunctiva/sclera: Conjunctivae normal. Pupils: Pupils are equal, round, and reactive to light. Neck: Vascular: No JVD. Trachea: Trachea normal. Cardiovascular: Rate and Rhythm: Normal rate and regular rhythm. Pulses: Normal pulses. Heart sounds: Normal heart sounds. No murmur heard. Pulmonary: Effort: Pulmonary effort is normal. No accessory muscle usage, prolonged expiration or respiratory distress. Breath sounds: Normal breath sounds. Musculoskeletal: Cervical back: Neck supple. Skin: General: Skin is warm and dry. Capillary Refill: Capillary refill takes less than 2 seconds. Neurological: General: No focal deficit present. Mental Status: She is alert and oriented to person, place, and time. Mental status is at baseline. Psychiatric: Attention and Perception: Attention and perception normal. Mood and Affect: Mood and affect normal. Speech: Speech normal. Behavior: Behavior normal. Behavior is cooperative. Thought Content: Thought content normal. Cognition and Memory: Cognition and memory normal. Judgment: Judgment normal. (more content not included)...[facility]05-05-2025 History of Present illness Narrative* Jorge Madden APRN.[facility] - 07/28/2024 9:26 AM EDT SUBJECTIVE Cathy Cam is a 49 year old female here today for a check up on her medical problems. Chief Complaint Patient presents with: Recheck HPI Cathy Cam is a 49 year old female.She is an established patient. She presents today for follow up. Accompanied by her significant other. She notes that lights are still bothering her, seen withthe eye doctor and got new glasses. Seeing neuro in September. No other seizure activity noted. Seeing the [facility] for mental health care. Anxiety bad right now. Follow up with [facility], concerned that IUD might of fallen out. Still smoking, breathing is okay. MAI and no CPAP use. Getting frequent and painful boils. Getting these in the arm pits and groin. Possible HS? Taking thyroid medication on an empty stomach. Ears feel full right now. Has not been taking her antihistamine. Her medications were reviewed today and her list is now up to date. Medications Current Outpatient Medications Medication Sig fluticasone-salmeterol (ADVAIR) 500-50 mcg/dose dsdv Inhale 1 Puff as instructed two times a day. levothyroxine (SYNTHROID) 25 mcg tablet Take 1 tablet by mouth once daily. tiotropium bromide (SPIRIVA RESPIMAT) 2.5 mcg/actuation inhaler Inhale 2 Puffs as instructed once daily. Cholecalciferol, Vitamin D3, 25 mcg (1,000 unit) cap Take 1 capsule by mouth once daily. benzonatate (TESSALON PERLE) 100 mg capsule Take 1-2 capsules by mouth three times a day as needed for cough. etodolac (LODINE) 400 mg tablet Take 1 tablet by mouth two times a day. venlafaxine ER (EFFEXOR XR) 150 mg 24 hr capsule Take 1 capsule by mouth once daily. albuterol HFA (PROAIR HFA) 90 mcg/actuation inhaler Inhale 2 puffs as instructed every 4 hours as needed. phenytoin ER 300 mg ER capsule Take 1 capsule by mouth two times a day. take in the morning fexofenadine (ALINE) 180 mg tablet Take 1 tablet by mouth once daily. No current facility-administered medications for this visit. ALLERGIES Allergen Reactions Quetiapine Other: See Comments Seizures Aspirin Other: See Comments, Unknown Fish Containing Pro* Unknown, Other: See Comments Pear Hives Shellfish Derived Hives Trazodone Contraindication-Medical Surgical, Other: See Comments triggers my seizures Erythromycin Vomiting Other reaction(s): Nausea And Vomiting Latex Rash, Itching ACTIVE PROBLEM LIST Obesity, Class II, Bmi 35-39.9 - 10/19/2023 Colitis - 06/21/2022 Obesity, Class III, BMI >= 40 - 05/24/2022 Hypothyroidism - 05/24/2022 Seizure Disorder (Hcc) - 05/24/2022 Major Depression, Recurrent - 08/25/2021 Depressive Disorder - 02/25/2007 Anxiety - 02/25/2007 History of Alcohol Abuse - 02/25/2007 Social History Tobacco Use Smoking status: Every Day Current packs/day: 0.50 Average packs/day: 0.5 packs/day for 18.0 years (9.0 ttl pk-yrs) Types: Cigarettes Smokeless tobacco: Never Vaping Use Vaping status: Never Used Substance Use Topics Alcohol use: Yes Alcohol/week: 3.0 standard drinks of alcohol Types: 3 Cans of Beer (12oz) per week Drug use: No Review of Systems Constitutional: Negative. Respiratory: Negative. Cardiovascular: Negative. OBJECTIVE BP 110/80 Pulse 116 Wt 202 lb 13.2 oz (92.0kg) SpO2 96% LMP 07/07/2024 Physical Exam Vitals and nursing note reviewed. Constitutional: General: She is awake. She is not in acute distress. Appearance: Normal appearance. She is well-developed and well-groomed. She is not ill-appearing, toxic-appearing or diaphoretic. HENT: Head: Normocephalic. Right Ear: External ear normal. Left Ear: External ear normal. Nose: Nose normal. Eyes: General: Vision grossly intact. Conjunctiva/sclera: Conjunctivae normal. Pupils: Pupils are equal, round, and reactive to light. Neck: Vascular: No JVD. Trachea: Trachea normal. Cardiovascular: Rate and Rhythm: Normal rate and regular rhythm. Pulses: Normal pulses. Heart sounds: Normal heart sounds. No murmur heard. Pulmonary: Effort: Pulmonary effort is normal. No accessory muscle usage, prolonged expiration or respiratory distress. Breath sounds: Normal breath sounds. Musculoskeletal: Cervical back: Neck supple. Skin: General: Skin is warm and dry. Capillary Refill: Capillary refill takes less than 2 seconds. Neurological: General: No focal deficit present. Mental Status: She is alert and oriented to person, place, and time. Mental status is at baseline. Psychiatric: Attention and Perception: Attention and perception normal. Mood and Affect: Mood and affect normal. Speech: Speech normal. Behavior: Behavior normal. Behavior is cooperative. Thought Content: Thought content normal. Cognition and Memory: Cognition and memory normal. Judgment: Judgment normal. ASSESSMENT/PLAN: 1. Seizure disorder (HCC) - ICD9: 345.90, ICD10: G40.909 (primary diagnosis) Increase Dilantin dose. See neuro in September. - PHENYTOIN SODIUM EXTENDED 300 MG CAPSULE 2. Chronic obstructive pulmonary disease with acute exacerbation (HCC) - ICD9: 491.21, ICD10: J44.1 Exacerbation now resolving. Albuterol PRN. - ALBUTEROL SULFATE HFA 90 MCG/ACTUATION AEROSOL INHALER 3. Hypothyroidism, unspecified type - ICD9: 244.9, ICD10: E03.9 - Instructed patient on importance of taking on an empty stomach either first thing in the morning or at bedtime. 4. Anxiety - ICD9: 300.00, ICD10: F41.9 Worse, working with mental health provider. 5. Tobacco use disorder - ICD9: 305.1, ICD10: F17.200 - Cessation encouraged. - Physiologic and physical aspects of tobacco addiction as well as strategies for quitting were discussed. - Counseling was given focusing on the harmful effects of this addiction especially given the patient's medical condition(s) which will be worsened because of the chemicals in tobacco. 6. MAI (obstructive sleep apnea) - ICD9: 327.23, ICD10: G47.33 Not using CPAP. 7. Colon cancer screening - ICD9: V76.51, ICD10: Z12.11 - CONSULT TO GASTROENTEROLOGY 8. Seasonal allergies - ICD9: 477.9, ICD10: J30.2 - FEXOFENADINE 180 MG TABLET 9. Boil of groin - ICD9: 680.2, ICD10: L02.224 Declines referral for derm right now. Portions of this note have been entered by ancillary staff. I have reviewed and when necessary edited, so that they are an adequate record of my encounter with this patient Please note that parts of this document were created using voice recognition software and therefore may contain grammatical errors. Patient verbalizes understanding of instructions from today's visit and in agreement with treatmentplan. Questions answered. Agrees to call the office if questions, concerns of issues with acute symptoms not improving or if they worsen. See diagnoses and orders for additional plan(s). Allergies and medications were reviewed, list was updated, and refills given if needed. Past medical, surgical, social, and family history reviewed and updated as appropriate. Encouraged proper diet & exercise as well as compliance with taking medications. Age- appropriate health preventative measures were discussed. Return in about 3 months (around 10/28/2024) for Follow up on chronic conditions and medications.. Jorge Madden APRN-JOSE [facility] Progress note* Result Encounter Note - Jennifer Agarwal APRN.CNS - 06/06/2024 4:16 PM EDT 06/02 OV [facility]03-14-2025 Miscellaneous Notes* Result Encounter Note - Jennifer Agarwal APRN.CNS - 06/06/2024 4:16 PM EDT 06/02 OV documented in this encounterC[facility]03-10-2025 Instructions* Patient Instructions* Jorge Madden APRN.CNP - 06/02/2024 7:33 AM EDT For your cough/cold we are going to start Doxycyline twice a day for 2 weeks, take this with food, okay to take with your other medications. Also we are starting Spiriva, this inhaler is in addition to the one you already use. Get blood work, I will call with the results. Follow up with ortho. See Dr. Breanna RESENDEZ, new consult sent. See neurology, we will refer to [facility]. Check back in at 4 weeks. documented in this encounterC[facility]03-10-2025 NoteHNO ID: [id number] Author: JORGE MADDEN APRN.CNP Service: ? Author Type: Nurse Practitioner Type: Progress Notes Filed: 06/02/2024 07:47 Note Text: SUBJECTIVE Cathy Cam is a 49 year old female here today for a check up on her medical problems. Chief Complaint Patient presents with: F/U 3 Month HPI Cathy Cam is a 49 year old female. She is an established patient. She presents today for routine 3 month follow up. Accompanied by her significant other. Seeing ortho with Dr. Nicholson. Dx of left shoulder impingement, left arm pain, rigo carpal tunnel. She was planning to have surgery for carpal tunnel on the left but had to cancel. Issues with cough since February. Smoking still. Cough is productive, brown, thick. She does have shortness of breath with activity. Some wheezing. Has history of seizure disorder, lights are starting to bother her. Did not see neurology. She was planning to see [facility] but not able to get in until Fall. Continues on Dilantin. Seeing counseling center for mental health needs. Sleeping a lot during the day but not much at night. Continues to live sober. Continues to take her synthroid, needs a refill. Her medications were reviewed today and her list is now up to date. Medications Current Outpatient Medications Medication Sig fluticasone-salmeterol (ADVAIR) 500-50 mcg/dose dsdv Inhale 1 Puff as instructed two times a day. Cholecalciferol, Vitamin D3, 25 mcg (1,000 unit) cap Take 1 capsule by mouth once daily. phenytoin ER 300 mg ER capsule Take 1 capsule by mouth once daily. take in the morning Phenytoin Sodium Extended 200 mg ER capsule Take 1 capsule by mouth daily at bedtime. benzonatate (TESSALON PERLE) 100 mg capsule Take 1-2 capsules by mouth three times a day as needed for cough. albuterol HFA (PROAIR HFA) 90 mcg/actuation inhaler Inhale 2 Puffs as instructed every 4 hours as needed. etodolac (LODINE) 400 mg tablet Take 1 tablet by mouth two times a day. cetirizine (ZYRTEC) 10 mg tablet Take 1 tablet by mouth once daily. venlafaxine ER (EFFEXOR XR) 150 mg 24 hr capsule Take 1 capsule by mouth once daily. levothyroxine (SYNTHROID) 25 mcg tablet Take 1 tablet by mouth once daily. tiotropium bromide (SPIRIVA RESPIMAT) 2.5 mcg/actuation inhaler Inhale 2 Puffs as instructed once daily. doxycycline monohydrate (MONODOX) 100 mg capsule Take 1 capsule by mouth two times a day for 14 days. No current facility-administered medications for this visit. ALLERGIES Allergen Reactions Quetiapine Other: See Comments Seizures Aspirin Other: See Comments, Unknown Fish Containing Pro* Unknown, Other: See Comments Pear Hives Shellfish Derived Hives Trazodone Contraindication-Medical Surgical, Other: See Comments triggers my seizures Erythromycin Vomiting Other reaction(s): Nausea And Vomiting Latex Rash, Itching ACTIVE PROBLEM LIST Obesity, Class II, Bmi 35-39.9 - 10/19/2023 Colitis - 06/21/2022 Obesity, Class III, BMI >= 40 - 05/24/2022 Hypothyroidism - 05/24/2022 Seizure Disorder (Hcc) - 05/24/2022 Major Depression, Recurrent (Hcc) - 08/25/2021 Depressive Disorder - 02/25/2007 Anxiety - 02/25/2007 History of Alcohol Abuse - 02/25/2007 Social History Tobacco Use Smoking status: Every Day Current packs/day: 0.50 Average packs/day: 0.5 packs/day for 18.0 years (9.0 ttl pk-yrs) Types: Cigarettes Smokeless tobacco: Never Vaping Use Vaping status: Never Used Substance Use Topics Alcohol use: Yes Alcohol/week: 3.0 standard drinks of alcohol Types: 3 Cans of Beer (12oz) per week Drug use: No Review of Systems Constitutional: Negative. Respiratory: Positive for cough, shortness of breath and wheezing. Cardiovascular: Negative. OBJECTIVE BP 102/78 Pulse 83 Wt 206 lb 2.1 oz (93.5kg) SpO2 98% LMP 04/07/2024 Physical Exam Vitals and nursing note reviewed. Constitutional: General: She is awake. She is not in acute distress. Appearance: Normal appearance. She is well-developed and well-groomed. She is not ill-appearing, toxic-appearing or diaphoretic. HENT: Head: Normocephalic. Right Ear: External ear normal. Left Ear: External ear normal. Nose: Nose normal. Eyes: General: Vision grossly intact. Conjunctiva/sclera: Conjunctivae normal. Pupils: Pupils are equal, round, and reactive to light. Neck: Vascular: No JVD. Trachea: Trachea normal. Cardiovascular: Rate and Rhythm: Normal rate and regular rhythm. Pulses: Normal pulses. Heart sounds: Normal heart sounds. No murmur heard. Pulmonary: Effort: Pulmonary effort is normal. No accessory muscle usage, prolonged expiration or respiratory distress. Breath sounds: Normal breath sounds. Musculoskeletal: Cervical back: Neck supple. Skin: General: Skin is warm and dry. Capillary Refill: Capillary refill takes less than 2 seconds. Neurological: General: No focal deficit present. Mental Status: (more content not included)...[facility] 06-02-2024 History of Present illness Narrative* Jorge Madden APRN.[employer] - 06/02/2024 7:17 AM EDT SUBJECTIVE Cathy Cam is a 49 year old female here today for a check up on her medical problems. Chief Complaint Patient presents with: F/U 3 Month HPI Cathy Cam is a 49 year old female. She is an established patient. She presents today for routine 3 month follow up. Accompanied by her significant other. Seeing ortho with Dr. Nicholson. Dx of left shoulder impingement, left arm pain, rigo carpal tunnel. She was planning to have surgery for carpal tunnel on the left but had to cancel. Issues with cough since February. Smoking still. Cough is productive, brown, thick. She does have shortness of breath with activity. Some wheezing. Has history of seizure disorder, lights are starting to bother her. Did not see neurology. She was planning to see [facility] but not able to get in until Fall. Continues on Dilantin. Seeing counseling center for mental health needs. Sleeping a lot during the day but not much at night. Continues to live sober. Continues to take her synthroid, needs a refill. Her medications were reviewed today and her list is now up to date. Medications Current Outpatient Medications Medication Sig fluticasone-salmeterol (ADVAIR) 500-50 mcg/dose dsdv Inhale 1 Puff as instructed two times a day. Cholecalciferol, Vitamin D3, 25 mcg (1,000 unit) cap Take 1 capsule by mouth once daily. phenytoin ER 300 mg ER capsule Take 1 capsule by mouth once daily. take in the morning Phenytoin Sodium Extended 200 mg ER capsule Take 1 capsule by mouth daily at bedtime. benzonatate (TESSALON PERLE) 100 mg capsule Take 1-2 capsules by mouth three times a day as needed for cough. albuterol HFA (PROAIR HFA) 90 mcg/actuation inhaler Inhale 2 Puffs as instructed every 4 hours as needed. etodolac (LODINE) 400 mg tablet Take 1 tablet by mouth two times a day. cetirizine (ZYRTEC) 10 mg tablet Take 1 tablet by mouth once daily. venlafaxine ER (EFFEXOR XR) 150 mg 24 hr capsule Take 1 capsule by mouth once daily. levothyroxine (SYNTHROID) 25 mcg tablet Take 1 tablet by mouth once daily. tiotropium bromide (SPIRIVA RESPIMAT) 2.5 mcg/actuation inhaler Inhale 2 Puffs as instructed once daily. doxycycline monohydrate (MONODOX) 100 mg capsule Take 1 capsule by mouth two times a day for 14 days. No current facility-administered medications for this visit. ALLERGIES Allergen Reactions Quetiapine Other: See Comments Seizures Aspirin Other: See Comments, Unknown Fish Containing Pro* Unknown, Other: See Comments Pear Hives Shellfish Derived Hives Trazodone Contraindication-Medical Surgical, Other: See Comments triggers my seizures Erythromycin Vomiting Other reaction(s): Nausea And Vomiting Latex Rash, Itching ACTIVE PROBLEM LIST Obesity, Class II, Bmi 35-39.9 - 10/19/2023 Colitis - 06/21/2022 Obesity, Class III, BMI >= 40 - 05/24/2022 Hypothyroidism - 05/24/2022 Seizure Disorder (Hcc) - 05/24/2022 Major Depression, Recurrent (Hcc) - 08/25/2021 Depressive Disorder - 02/25/2007 Anxiety - 02/25/2007 History of Alcohol Abuse - 02/25/2007 Social History Tobacco Use Smoking status: Every Day Current packs/day: 0.50 Average packs/day: 0.5 packs/day for 18.0 years (9.0 ttl pk-yrs) Types: Cigarettes Smokeless tobacco: Never Vaping Use Vaping status: Never Used Substance Use Topics Alcohol use: Yes Alcohol/week: 3.0 standard drinks of alcohol Types: 3 Cans of Beer (12oz) per week Drug use: No Review of Systems Constitutional: Negative. Respiratory: Positive for cough, shortness of breath and wheezing. Cardiovascular: Negative. OBJECTIVE BP 102/78 Pulse 83 Wt 206 lb 2.1 oz (93.5kg) SpO2 98% LMP 04/07/2024 Physical Exam Vitals and nursing note reviewed. Constitutional: General: She is awake. She is not in acute distress. Appearance: Normal appearance. She is well-developed and well-groomed. She is not ill-appearing, toxic-appearing or diaphoretic. HENT: Head: Normocephalic. Right Ear: External ear normal. Left Ear: External ear normal. Nose: Nose normal. Eyes: General: Vision grossly intact. Conjunctiva/sclera: Conjunctivae normal. Pupils: Pupils are equal, round, and reactive to light. Neck: Vascular: No JVD. Trachea: Trachea normal. Cardiovascular: Rate and Rhythm: Normal rate and regular rhythm. Pulses: Normal pulses. Heart sounds: Normal heart sounds. No murmur heard. Pulmonary: Effort: Pulmonary effort is normal. No accessory muscle usage, prolonged expiration or respiratory distress. Breath sounds: Normal breath sounds. Musculoskeletal: Cervical back: Neck supple. Skin: General: Skin is warm and dry. Capillary Refill: Capillary refill takes less than 2 seconds. Neurological: General: No focal deficit present. Mental Status: She is alert and oriented to person, place, and time. Mental status is at baseline. Psychiatric: Attention and Perception: Attention and perception normal. Mood and Affect: Mood and affect normal. Speech: Speech normal. Behavior: Behavior normal. Behavior is cooperative. Thought Content: Thought content normal. Cognition and Memory: Cognition and memory normal. Judgment: Judgment normal. ASSESSMENT/PLAN: 1. Chronic obstructive pulmonary disease with acute exacerbation (HCC) - ICD9: 491.21, ICD10: J44.1(primary diagnosis) Add Spiriva, she did not tolerate steroids well so we will hold off another taper. Start doxycycline. - SPIRIVA RESPIMAT 2.5 MCG/ACTUATION SOLUTION FOR INHALATION - DOXYCYCLINE MONOHYDRATE 100 MG CAPSULE 2. Seizure disorder (HCC) - ICD9: 345.90, ICD10: G40.909 See if [facility] neuro can get her seen. Repeat levels. - PHENYTOIN/DILANTIN - CONSULT TO NEUROLOGY 3. Left arm pain - ICD9: 729.5, ICD10: M79.602 Working with ortho. 4. Chronic left shoulder pain - ICD9: 719.41, 338.29, ICD10: M25.512, G89.29 See #3 5. Bilateral carpal tunnel syndrome - ICD9: 354.0, ICD10: G56.03 See #3 6. Hypothyroidism, unspecified type - ICD9: 244.9, ICD10: E03.9 - Instructed patient on importance of taking on an empty stomach either first thing in the morning or at bedtime. Check labs - LEVOTHYROXINE 25 MCG TABLET - THYROID STIMULATING HORMONE - T3, FREE - T4 FREE/FREE THYROXINE 7. Screening for colon cancer - ICD9: V76.51, ICD10: Z12.11 - CONSULT TO GASTROENTEROLOGY 8. Encounter for therapeutic drug monitoring - ICD9: V58.83, ICD10: Z51.81 - COMPLETE BLOOD COUNT AND DIFFERENTIAL - COMPREHENSIVE METABOLIC PANEL 9. Anxiety - ICD9: 300.00, ICD10: F41.9 On Effexor, being managed by Counseling center. 10. History of alcohol abuse - ICD9: 305.03, ICD10: F10.11 Continues to be sober, working with counseling center. Portions of this note have been entered by ancillary staff. I have reviewed and when necessary edited, so that they are an adequate record of my encounter with this patient Please note that parts of this document were created using voice recognition software and therefore may contain grammatical errors. Patient verbalizes understanding of instructions from today's visit and in agreement with treatmentplan. Questions answered. Agrees to call the office if questions, concerns of issues with acute symptoms not improving or if they worsen. See diagnoses and orders for additional plan(s). Allergies and medications were reviewed, list was updated, and refills given if needed. Past medical, surgical, social, and family history reviewed and updated as appropriate. Encouraged proper diet & exercise as well as compliance with taking medications. Age- appropriate health preventative measures were discussed. Return in about 4 weeks (around 06/30/2024) for Follow up on chronic conditions and medications.. Jorge Madden APRN-JOSE documented in this encounterC[facility] Telephone encounter Note * Telephone Encounter - Juan C Villarreal MD - 05/05/2024 12:44 PM EST The following approved medication requests have been transmitted electronically. Requested Prescriptions Signed Prescriptions Disp Refills Cholecalciferol, Vitamin D3, 25 mcg (1,000 unit) cap 30 capsule 11 Sig: Take 1 capsule by mouth once daily. Authorizing Provider: JUAN C VILLARREAL phenytoin ER 300 mg ER capsule 30 capsule 3 Sig: Take 1 capsule by mouth once daily. take in the morning Authorizing Provider: JUAN C VILLARREAL Phenytoin Sodium Extended 200 mg ER capsule 30 capsule 3 Sig: Take 1 capsule by mouth daily at bedtime. Authorizing Provider: JUAN C VILLARREAL MD [facility]02-10-2025 Miscellaneous Notes* Telephone Encounter - Juan C Villarreal MD - 05/05/2024 12:44 PM EST The following approved medication requests have been transmitted electronically. Requested Prescriptions Signed Prescriptions Disp Refills Cholecalciferol, Vitamin D3, 25 mcg (1,000 unit) cap 30 capsule 11 Sig: Take 1 capsule by mouth once daily. Authorizing Provider: JUAN C VILLARREAL phenytoin ER 300 mg ER capsule 30 capsule 3 Sig: Take 1 capsule by mouth once daily. take in the morning Authorizing Provider: JUAN C VILLARREAL Phenytoin Sodium Extended 200 mg ER capsule 30 capsule 3 Sig: Take 1 capsule by mouth daily at bedtime. Authorizing Provider: JUAN C VILLARREAL MD * Telephone Encounter - Dahlia Amezquita LPN - 05/05/2024 11:21 AM EST Pt switched pharmacy to [facility] Dahlia Amezquita LPN The patient has been identified by name and date of : Yes Caregiver verified no other encounters exist for this prescription request: Yes Caregiver confirmed with patient/requestor that no other refills are due, in the near future, with this provider at this time: Yes The last office visit in the department: 11/27/23 Does the patient have a future office visit with this provider/department: Yes 06/02/24 Requested Prescriptions Pending Prescriptions Disp Refills Cholecalciferol, Vitamin D3, 25 mcg (1,000 unit) cap 30 capsule 11 Sig: Take 1 capsule by mouth once daily. phenytoin ER 300 mg ER capsule 30 capsule 3 Sig: Take 1 capsule by mouth once daily. take in the morning Phenytoin Sodium Extended 200 mg ER capsule 30 capsule 3 Sig: Take 1 capsule by mouth daily at bedtime. Dahlia Amezquita LPN May 05, 2024 11:25 AM [facility] Telephone encounter Note * Telephone Encounter - Dahlia Amezquita LPN - 05/05/2024 11:21 AM EST Pt switched pharmacy to [facility]. Dahlia Amezquita LPN The patient has been identified by name and date of : Yes Caregiver verified no other encounters exist for this prescription request: Yes Caregiver confirmed with patient/requestor that no other refills are due, in the near future, with this provider at this time: Yes The last office visit in the department: 11/27/23 Does the patient have a future office visit with this provider/department: Yes 06/02/24 Requested Prescriptions Pending Prescriptions Disp Refills Cholecalciferol, Vitamin D3, 25 mcg (1,000 unit) cap 30 capsule 11 Sig: Take 1 capsule by mouth once daily. phenytoin ER 300 mg ER capsule 30 capsule 3 Sig: Take 1 capsule by mouth once daily. take in the morning Phenytoin Sodium Extended 200 mg ER capsule 30 capsule 3 Sig: Take 1 capsule by mouth daily at bedtime. Dahlia Amezquita LPN May 05, 2024 11:25 AM [facility]01-17-2025 Telephone encounter Note* Telephone Encounter - Dahlia Amezquita LPN - 2024 10:19 AM EST Closed in error. See message below from pt. Dahlia Amezqutia LPN [facility]01-17-2025 Miscellaneous Notes* Telephone Encounter - Dahlia Amezquita LPN - 2024 10:19 AM EST Closed in error. See message below from pt. Dahlia Amezquita LPN * Telephone Encounter - Dahlia Amezquita LPN - 2024 10:16 AM EST Pt given results below and she is not sure if she has missed any doses. She thought she could of. Other message says to repeat la at next visit. Pt's next apt is not till May and she wants to know if you really want her to wait till then or come back in to get done. Please advise pt. Dahlia Amezquita LPN * Telephone Encounter - Dahlia Amezquita LPN - 2024 10:16 AM EST ----- Message from Jennifer Vargas APRN.CNS sent at 2024 7:36 AM EST ----- Please let her know that phenytoin level is decreased. Check to see if missing any doses. documented in this encounterC[facility]01-17-2025 Telephone encounter Note * Telephone Encounter - Dahlia Amezquita LPN - 2024 10:16 AM EST Pt given results below and she is not sure if she has missed any doses. She thought she could of. Other message says to repeat la at next visit. Pt's next apt is not till May and she wants to know if you really want her to wait till then or come back in to get done. Please advise pt. Dahlia Amezquita LPN [facility]01-17-[facility] Telephone encounter Note* Telephone Encounter - Dahlia Amezquita LPN - 2024 10:16 AM EST ----- Message from Jennifer Vargas APRN.BLACK TOP RAKER sent at 2024 7:36 AM EST ----- Please let her know that phenytoin level is decreased. Check to see if missing any doses. [facility]12-09-[facility]24 Telephone encounter Note* Telephone Encounter - Candis Gallagher LPN - 03/03/2024 2:34 PM EST Patient called back and states she is currently on a lot of medications and antibiotics and she is not feeling well so she will not be able to reschedule her surgery until the beginning of the year or later. Candis Gallagher LPN [facility]12-09-2024 Miscellaneous Notes* Telephone Encounter - Candis Gallagher LPN - 03/03/2024 2:34 PM EST Patient called back and states she is currently on a lot of medications and antibiotics and she is not feeling well so she will not be able to reschedule her surgery until the beginning of the year or later. Candis Gallagher LPN * Telephone Encounter - Kourtney Todd MA - 02/29/2024 9:12 AM EST I called and left a message for the patient to contact the office. Please transfer to Ortho. * Telephone Encounter - Gris Martines LPN - 02/28/2024 10:04 AM EST Patient called. Verified name and date of . States she is not feeling well and cancelled surgery scheduled for tomorrow and needs to reschedule. Gris Martines LPN documented in this encounterC[facility]12-06-2024 Telephone encounter Note * Telephone Encounter - Kourtney Todd MA - 02/29/2024 9:12 AM EST I called and left a message for the patient to contact the office. Please transfer to Ortho. [facility]12-05[facility] Telephone encounter Note* Telephone Encounter - Gris Martines LPN - 02/28/2024 10:04 AM EST Patient called. Verified name and date of . States she is not feeling well and cancelled surgery scheduled for tomorrow and needs to reschedule. Gris Martines LPN [facility]12-05-2024 History of Present illness Narrative* Jennifer Agarwal APRN.BLACK TOP RAKER - 02/28/2024 7:20 AM EST AUGUSTO Cam is a 48 year old female who presents with 2 weeks of symptoms that are stable. Symptoms include: Fever (>=100.4F): No or Chills: No Cough: Yes Shortness of breath: Yes SOBOE, slightly increased or Difficulty breathing: No Fatigue: Yes Muscle aches: No Headache: No New loss of smell or taste: No Sore throat: No Nasal congestion: Yes or Rhinorrhea: Yes Nausea: No or Vomiting: No Diarrhea: No OTC meds/remedies that patient has tried: Mucinex, OTC cough syrup, and OTC cold medicine. Exposures: Sick contacts? Yes SO She reports that she has been smoking cigarettes. She has a 9 pack-year smoking history. She has never used smokeless tobacco. OBJECTIVE PHYSICAL EXAM: BP 110/74 Pulse 93 Temp 37 C (98.6 F) Resp 16 Wt 91.3 kg (201 lb 4.5 oz) LMP 10/19/2023 (Exact Date) SpO2 99% BMI 39.31 kg/m General appearance: tired/ill appearing, alert, cooperative, pleasant, in no acute distress Head: Normocephalic Eyes: conjunctiva/corneas normal Ears: R TM - clear with good landmarks, nl light reflex, L TM - clear with good landmarks, nl lightreflex Nose: purulent rhinorrhea Oropharynx: moist without lesions, mild erythema to GPA Neck: supple and small, benign anterior cervical nodes bilaterally Heart: regular rate and rhythm, without murmur Lungs: clear to auscultation, good air exchange, scattered end expiratory wheezes Latest Ref Rng 10/19/2023 11/27/2023 WBC 3.70 - 11.00 k/uL 7.06 RBC 3.90 - 5.20 m/uL 4.87 Hemoglobin 11.5 - 15.5 g/dL 15.0 Hematocrit 36.0 - 46.0 % 43.1 MCV 80.0 - 100.0 fL 88.5 MCH 26.0 - 34.0 pg 30.8 MCHC 30.5 - 36.0 g/dL 34.8 RDW-CV 11.5 - 15.0 % 12.7 Platelet Count 150 - 400 k/uL 283 MPV 9.0 - 12.7 fL 10.2 Neut% % 51.0 Abs Neut (ANC) 1.45 - 7.50 k/uL 3.60 Lymph% % 40.2 Abs Lymph 1.00 - 4.00 k/uL 2.84 [place]% % 5.7 Abs [place] <0.87 k/uL 0.40 Eosin% % 2.0 Abs Eosin <0.46 k/uL 0.14 Baso% % 1.0 Abs Baso <0.11 k/uL 0.07 Immature Gran % % 0.1 IMMATURE GRANS (ABS) <0.10 k/uL <0.03 NRBC /100 WBC 0.0 Absolute nRBC <0.01 k/uL <0.01 DTYPE Auto Protein, Total 6.3 - 8.0 g/dL 6.9 Albumin 3.9 - 4.9 g/dL 4.2 Calcium 8.5 - 10.2 mg/dL 9.5 Bilirubin, Total 0.2 - 1.3 mg/dL 0.3 Alkaline Phosphatase 34 - 123 U/L 191 (H) AST 13 - 35 U/L 20 ALT 7 - 38 U/L 17 Glucose 74 - 99 mg/dL 75 BUN 7 - 21 mg/dL 6 (L) Creatinine 0.58 - 0.96 mg/dL 0.59 Sodium 136 - 144 mmol/L 139 Potassium 3.7 - 5.1 mmol/L 4.4 Chloride 98 - 107 mmol/L 102 CO2 22 - 30 mmol/L 23 Anion Gap 8 - 15 mmol/L 14 eGFR >=60 mL/min/1.73m 112 Hemoglobin A1C 4.3 - 5.6 % 5.1 Estimated Average Glucose mg/dL 100 TSH 0.270 - 4.200 mIU/L 2.560 Vitamin D 25 Hydroxy 31.0 - 80.0 ng/mL 41.2 Phenytoin 10.0 - 20.0 ug/mL 8.0 (L) 14.9 Lamotrigine 1.0 - 13.0 ug/mL <0.5 (L) ASSESSMENT/PLAN (R05.1) Acute cough (primary encounter diagnosis) (J44.1) Chronic obstructive pulmonary disease with acute exacerbation (HCC) (J32.9, J40) Sinobronchitis (G40.909) Seizure disorder (HCC) ASSESSMENT/PLAN: 1. Acute cough - ICD9: 786.2, ICD10: R05.1 (primary diagnosis) 3. Sinobronchitis - ICD9: 473.9, 490, ICD10: J32.9, J40 2. Chronic obstructive pulmonary disease with acute exacerbation (HCC) - ICD9: 491.21, ICD10: J44.1 - Will begin treatment with as per antibiotic as written, see orders - Supportive care with plenty of fluids, rest, and analgesia prn. - Follow up if symptoms persist or worsen. - FLUTICASONE 250 MCG-SALMETEROL 50 MCG/DOSE BLISTR POWDR FOR INHALATION - PREDNISONE 10 MG TABLET - AMOXICILLIN 875 MG-POTASSIUM CLAVULANATE 125 MG TABLET - BENZONATATE 100 MG CAPSULE 4. Seizure disorder (HCC) - ICD9: 345.90, ICD10: G40.909 - PHENYTOIN/DILANTIN She will contact orthopedics to reschedule surgery. Jennifer Agarwal APRN.CNS Medical Decision Making: Problems: Low: Acute, uncomplicated illness or injury and Stable chronic illness Data: Unique test result(s) reviewed: 3+ Risk: Moderate: Drug management Medical Decision Making Level: 4 - Moderate documented in this encounterC[facility]12-05-2024 NoteHNO ID: [id number] Author: JENNIFER AGARWAL APRN.ERIN Service: ? Author Type: Nurse Specialist Type: Progress Notes Filed: 02/28/2024 08:05 Note Text: SUBJECTIVE Cathy Cam is a 48 year old female who presents with 2 weeks of symptoms that are stable. Symptoms include: Fever (>=100.4F): No or Chills: No Cough: Yes Shortness of breath: Yes SOBOE, slightly increased or Difficulty breathing: No Fatigue: Yes Muscle aches: No Headache: No New loss of smell or taste: No Sore throat: No Nasal congestion: Yes or Rhinorrhea: Yes Nausea: No or Vomiting: No Diarrhea: No OTC meds/remedies that patient has tried: Mucinex, OTC cough syrup, and OTC cold medicine. Exposures: Sick contacts? Yes SO She reports that she has been smoking cigarettes. She has a 9 pack-year smoking history. She has never used smokeless tobacco. OBJECTIVE PHYSICAL EXAM: BP 110/74 Pulse 93 Temp 37 ?C (98.6 ?F) Resp 16 Wt 91.3 kg (201 lb 4.5 oz) LMP 10/19/2023 (Exact Date) SpO2 99% BMI 39.31 kg/m? General appearance: tired/ill appearing, alert, cooperative, pleasant, in no acute distress Head: Normocephalic Eyes: conjunctiva/corneas normal Ears: R TM - clear with good landmarks, nl light reflex, L TM - clear with good landmarks, nl light reflex Nose: purulent rhinorrhea Oropharynx: moist without lesions, mild erythema to GPA Neck: supple and small, benign anterior cervical nodes bilaterally Heart: regular rate and rhythm, without murmur Lungs: clear to auscultation, good air exchange, scattered end expiratory wheezes Latest Ref Rng 10/19/2023 11/27/2023 WBC 3.70 - 11.00 k/uL 7.06 RBC 3.90 - 5.20 m/uL 4.87 Hemoglobin 11.5 - 15.5 g/dL 15.0 Hematocrit 36.0 - 46.0 % 43.1 MCV 80.0 - 100.0 fL 88.5 MCH 26.0 - 34.0 pg 30.8 MCHC 30.5 - 36.0 g/dL 34.8 RDW-CV 11.5 - 15.0 % 12.7 Platelet Count 150 - 400 k/uL 283 MPV 9.0 - 12.7 fL 10.2 Neut% % 51.0 Abs Neut (ANC) 1.45 - 7.50 k/uL 3.60 Lymph% % 40.2 Abs Lymph 1.00 - 4.00 k/uL 2.84 [place]% % 5.7 Abs [place] <0.87 k/uL 0.40 Eosin% % 2.0 Abs Eosin <0.46 k/uL 0.14 Baso% % 1.0 Abs Baso <0.11 k/uL 0.07 Immature Gran % % 0.1 IMMATURE GRANS (ABS) <0.10 k/uL <0.03 NRBC /100 WBC 0.0 Absolute nRBC <0.01 k/uL <0.01 DTYPE Auto Protein, Total 6.3 - 8.0 g/dL 6.9 Albumin 3.9 - 4.9 g/dL 4.2 Calcium 8.5 - 10.2 mg/dL 9.5 Bilirubin, Total 0.2 - 1.3 mg/dL 0.3 Alkaline Phosphatase 34 - 123 U/L 191 (H) AST 13 - 35 U/L 20 ALT 7 - 38 U/L 17 Glucose 74 - 99 mg/dL 75 BUN 7 - 21 mg/dL 6 (L) Creatinine 0.58 - 0.96 mg/dL 0.59 Sodium 136 - 144 mmol/L 139 Potassium 3.7 - 5.1 mmol/L 4.4 Chloride 98 - 107 mmol/L 102 CO2 22 - 30 mmol/L 23 Anion Gap 8 - 15 mmol/L 14 eGFR >=60 mL/min/1.73m? 112 Hemoglobin A1C 4.3 - 5.6 % 5.1 Estimated Average Glucose mg/dL 100 TSH 0.270 - 4.200 mIU/L 2.560 Vitamin D 25 Hydroxy 31.0 - 80.0 ng/mL 41.2 Phenytoin 10.0 - 20.0 ug/mL 8.0 (L) 14.9 Lamotrigine 1.0 - 13.0 ug/mL <0.5 (L) ASSESSMENT/PLAN (R05.1) Acute cough (primary encounter diagnosis) (J44.1) Chronic obstructive pulmonary disease with acute exacerbation (HCC) (J32.9, J40) Sinobronchitis (G40.909) Seizure disorder (HCC)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 Note* Telephone Encounter - Teri Llanos LPN - 09/07/2023 12:28 PM EDT PATIENT NOTIFIED OF SAME. [facility]06-14-2024 Miscellaneous Notes* Telephone Encounter - Teri Llanos LPN - 09/07/2023 12:28 PM EDT PATIENT NOTIFIED OF SAME. * Telephone Encounter - Jorge Madden APRN.CNP - 09/07/2023 11:38 AM EDT Decrease dose of phenytoin from 300 mg twice daily to taking 300 mg in the am and 200 mg in the pm.New RX sent. * Telephone Encounter - Gris Yang - 09/07/2023 10:08 AM EDT Patient transferred to [facility] for scheduling neurology consultation. Patient has not received call from epilepsy center. LM#2 on [facility] VM at [phone] requesting for a chief crew scheduler to contact the patient. * Telephone Encounter - Jovanni Eason LPN - 09/07/2023 9:52 AM EDT Patient returned call, she is feeling shaky and fatigued. Asking if Floranex could be affecting thelevel? Patient was waiting on a call to schedule neuro. Transferred her to get scheduled. * Telephone Encounter - Dahlia Amezquita LPN - 09/07/2023 9:27 AM EDT Left a message for pt to call the office and ask to speak to a nurse. Dahlia Amezquita LPN * Telephone Encounter - Jorge Madden APRN.CNP - 09/07/2023 8:58 AM EDT Dilantin level is still on the higher side, please call and get an update on how she is feeling with the changes we made in her medication and see if any recent seizure activity. It looks like she has not scheduled with neuro yet. Please encourage that too. Thanks. * Telephone Encounter - Hilary Kelly - 09/04/2023 1:41 PM EDT Spoke with patient was unable to assist in arranging Neurology referral had to call [phone] and left a message for them to return call to the patient. I also provided this number to the patient and advised if she did not hear from them in 24-48 hrs to call them back and return call to our office if having issues arranging this consult. * Telephone Encounter - Jorge Madden APRN.CNP - 09/04/2023 12:50 PM EDT Okay noted, please see when neuro office visit is, she needs to get seen with neuro to help determine next steps. Jorge Madden APRN.JOSE * Telephone Encounter - Mikayla Shannon - 09/04/2023 10:43 AM EDT Patient calling. She states she forgot the medication prescribed to help her stay calm, as a result, she was very anxious. She was very nervous, and when they strapped her head down, became even moreso. Cathy is asking if the provider would like to re-order this test. Please advise. Please note:patient's cell phone is not working. Please call her at her mother's cell, . NANDA [place] [employer] (Patient Operations Support Team) Please note: Please do not re-route encounters back to this agent, please send to appropriate office pool. Agent works in operations center and cannot complete patient specific tasks. * Telephone Encounter - Gris Spring RT(R) - 09/03/2023 11:36 AM EDT Pt: Cathy Cam MR# [id number] CT Brain was not completed and will be read as non diagnostic. Pt Could not do exam due to extreme fear and anxiety.Did not reschedule . Please contact pt with further instructions. Naveed,[address] [place] [phone] documented in this encounterC[facility]06-14-2024 Telephone encounter Note * Telephone Encounter - Jorge Madden APRN.PLANT OPERATIONS MANAGER - 09/07/2023 11:38 AM EDT Decrease dose of phenytoin from 300 mg twice daily to taking 300 mg in the am and 200 mg in the pm.New RX sent. [facility] Telephone encounter Note* Telephone Encounter - Gris Yang - 09/07/2023 10:08 AM EDT Patient transferred to [facility] for scheduling neurology consultation. Patient has not received call from epilepsy center. LM#2 on [facility] VM at [phone] requesting for a chief crew scheduler to contact the patient. [facility] Telephone encounter Note* Telephone Encounter - Jovanni Eason LPN - 09/07/2023 9:52 AM EDT Patient returned call, she is feeling shaky and fatigued. Asking if Floranex could be affecting thelevel? Patient was waiting on a call to schedule neuro. Transferred her to get scheduled. [facility] Telephone encounter Note* Telephone Encounter - Dahlia Amezquita LPN - 09/07/2023 9:27 AM EDT Left a message for pt to call the office and ask to speak to a nurse. Dahlia Amezquita LPN [facility]06-14-[facility] Telephone encounter Note* Telephone Encounter - Jorge Madden APRN.CNP - 09/07/2023 8:58 AM EDT Dilantin level is still on the higher side, please call and get an update on how she is feeling with the changes we made in her medication and see if any recent seizure activity. It looks like she has not scheduled with neuro yet. Please encourage that too. Thanks. [facility]06-[facility] Telephone encounter Note* Telephone Encounter - Hilary Kelly - 09/04/2023 1:41 PM EDT Spoke with patient was unable to assist in arranging Neurology referral had to call [phone] and left a message for them to return call to the patient. I also provided this number to the patient and advised if she did not hear from them in 24-48 hrs to call them back and return call to our office if having issues arranging this consult. [facility] Telephone encounter Note* Telephone Encounter - Jorge Madden APRN.CNP - 09/04/2023 12:50 PM EDT Okay noted, please see when neuro office visit is, she needs to get seen with neuro to help determine next steps. Jorge Madden APRN.JOSE [facility]06-11-20[facility] Telephone encounter Note* Telephone Encounter - Mikayla Shannon - 09/04/2023 10:43 AM EDT Patient calling. She states she forgot the medication prescribed to help her stay calm, as a result, she was very anxious. She was very nervous, and when they strapped her head down, became even moreso. Cathy is asking if the provider would like to re-order this test. Please advise. Please note:patient's cell phone is not working. Please call her at her mother's cell, . NANDA [place] [employer] (Patient Operations Support Team) Please note: Please do not re-route encounters back to this agent, please send to appropriate office pool. Agent works in operations center and cannot complete patient specific tasks. [facility]06-10-[facility] Telephone encounter Note* Telephone Encounter - Gris Spring RT(R) - 09/03/2023 11:36 AM EDT Pt: Cathy Cam MR# [id number] CT Brain was not completed and will be read as non diagnostic. Pt Could not do exam due to extreme fear and anxiety.Did not reschedule . Please contact pt with further instructions. [address] [place] [phone] [facility]06-10-[facility] History of Present illness Narrative* Gris Spring RT(R) - 09/03/2023 11:00 AM EDT Radiology Service Progress Note DATE OF SERVICE: September 03, 2023 TIME: 1:07 PM PATIENT IDENTITY VERIFICATION COMPLETED USING TWO (2) STANDARD IDENTIFIERS: Name and Date of confirmed by patient verbally. FALL SCREENING: Has the patient had 2 falls in the last year or 1 fall with injury or currently using an Ambulatory Assistive Device (Walker, Cane, Wheelchair, Crutches, etc.)? No PATIENT GENDER DATA: Female. status: : No status: NO. PATIENT RELEVANT IMPLANT DATA REVIEWED: Yes PATIENT PRESENTS WITH AN IMPLANTABLE OR ATTACHED MUD ANALYSIS OPERATOR: No ALLERGIES: Reviewed and unchanged CONTRAST ALLERGY: NO. EXAM: CT -CONTRAST INDUCED NEPHROPATHY RISK FACTORS: Not applicable CREATININE: Creatinine Date Value Ref Range Status 07/20/2023 0.63 0.58 - 0.96 mg/dL Final 04/20/2023 0.58 0.58 - 0.96 mg/dL Final 01/19/2023 0.59 0.58 - 0.96 mg/dL Final Estimated Glomerular Filtration Rate Date Value Ref Range Status 07/20/2023 110 >=60 mL/min/1.73m Final Comment: Estimated Glomerular Filtration Rate (eGFR) is calculated using the 2020 CKD-EPI creatinine equation. This equation utilizes serum creatinine, sex, and age as parameters. The creatinine assay has traceable calibration to isotope dilution- mass spectrometry. Refer to KDIGO guidelines for clinical interpretation. In patients with unstable renal function, e.g. those with acute kidney injury, the eGFRmay not accurately reflect actual GFR. P.O.C.T. RESULTS: POC done: Yes, See Lab Tab September 03, 2023 TREATMENT: N/A PERIPHERAL IV DATA: Ambulatory: Not applicable RADIOLOGY DEPARTMENT: CT; Exam(s) Completed: Brain SIGNATURE: RT Melisa(R) PATIENT NAME: Cathy Cam DATE: September 03, 2023 TIME: 1:07 PM documented in this encounterCrystal [facility]06-06-2024 Telephone encounter Note * Telephone Encounter - Juan C Villarreal MD - 08/30/2023 5:40 PM EDT Reviewed records Looks like patient having increased frequency of seizures. Patient afraid to do MRI Order placed for already scheduled CT scan. [facility]06-06-[facility] Miscellaneous Notes* Telephone Encounter - Juan C Villarreal MD - 08/30/2023 5:40 PM EDT Reviewed records Looks like patient having increased frequency of seizures. Patient afraid to do MRI Order placed for already scheduled CT scan. * Telephone Encounter - Danielle Candelaria PSS - 08/30/2023 2:[address] order for pt CT appt that is scheduled for 09/03/23.. Looks like it is scheduled for Brain wwo IV contrast documented in this encounterCrystal [facility]06-06-2024 Telephone encounter Note * Telephone Encounter - Danielle Candelaria PSS - 08/30/2023 2:[address] order for pt CT appt that is scheduled for 09/03/23.. Looks like it is scheduled for Brain wwo IV contrast [facility]05-31-20[facility] Telephone encounter Note* Telephone Encounter - Poonam Calixto - 08/24/2023 2:20 PM EDT Pt states she is returning a call to office but was not sure who called. Given information from Jorge Madden below. Pt voiced understanding. [facility] Work Phone: [phone]) 525-660205-31-2024 Miscellaneous Notes* Telephone Encounter - Poonam Calixto - 08/24/2023 2:20 PM EDT Pt states she is returning a call to office but was not sure who called. Given information from Jorge Madden below. Pt voiced understanding. * Telephone Encounter - Jorge Madden APRN.PLANT OPERATIONS MANAGER - 08/24/2023 12:44 PM EDT Please let her know that we have an up coming peer to peer discussion scheduled to discuss CT beingdone because of her concern of doing an MRI. That is scheduled for Sunday. Depending on the determination made with that phone call we will decide on next steps for testing. She can stop the additional Dilantin 100 mg dose that we added at bedtime so she will be back to taking only the 300 mg Dilantin 2 times daily. She should repeat her lab level in 10 days and let us know if any seizure activity. * Telephone Encounter - Sebastien Morales RN - 08/24/2023 11:49 AM EDT Patient calls to request provider review Dilantin level from yesterday. Component Ref Range & Units 1 d ago 2 wk ago 1 mo ago 4 mo ago 7 mo ago 10 mo ago 1 yr ago Phenytoin 10.0 - 20.0 ug/mL 30.4 High 15.1 CM 16.6 CM 13.1 CM 11.9 CM 12.4 CM 21.4 High Patient reports that she has been very sleep and feels somewhat uncoordinated for the past couple of days which is how she feels when phenytoin level is elevated. Patient also wanted to let provider know that insurance company is wanting an MRI of brain done forseizure disorder not CT Scan and asking if provider would place that order. Sebastien Morales RN [facility] Telephone encounter Note * Telephone Encounter - Jorge Madden APRN.CNP - 08/24/2023 12:44 PM EDT Please let her know that we have an up coming peer to peer discussion scheduled to discuss CT beingdone because of her concern of doing an MRI. That is scheduled for Sunday. Depending on the determination made with that phone call we will decide on next steps for testing. She can stop the additional Dilantin 100 mg dose that we added at bedtime so she will be back to taking only the 300 mg Dilantin 2 times daily. She should repeat her lab level in 10 days and let us know if any seizure activity. [facility]05-[facility] Telephone encounter Note* Telephone Encounter - Sebastien Morales RN - 08/24/2023 11:49 AM EDT Patient calls to request provider review Dilantin level from yesterday. Component Ref Range & Units 1 d ago 2 wk ago 1 mo ago 4 mo ago 7 mo ago 10 mo ago 1 yr ago Phenytoin 10.0 - 20.0 ug/mL 30.4 High 15.1 CM 16.6 CM 13.1 CM 11.9 CM 12.4 CM 21.4 High Patient reports that she has been very sleep and feels somewhat uncoordinated for the past couple of days which is how she feels when phenytoin level is elevated. Patient also wanted to let provider know that insurance company is wanting an MRI of brain done forseizure disorder not CT Scan and asking if provider would place that order. Sebastien Morales RN [facility]05-14-2024 Note* Addendum Note - Jorge Madden APRN.CNP - 08/07/2023 10:42 AM EDTAddended by: JORGE MADDEN on: 08/07/2023 10:42 AM Modules accepted: Orders [facility]05-14-2024 Miscellaneous Notes* Addendum Note - Jorge Madden APRN.CNP - 08/07/2023 10:42 AM EDTAddended by: JORGE MADDEN on: 08/07/2023 10:42 AM Modules accepted: Orders * Addendum Note - Teri Llanos LPN - 08/07/2023 10:33 AM EDTAddended by: TERI LLANOS on: 08/07/2023 10:33 AM Modules accepted: Orders * Telephone Encounter - Teri Llanos LPN - 08/07/2023 10:31 AM EDT PATIENT NOTIFIED OF SAME. She states she is needing a refill on the two inhalers. I attempted to pend the Advair but it is requesting an alternative. * Telephone Encounter - Jorge Madden APRN.CNP - 08/07/2023 8:27 AM EDT Please let patient know that dilantin level was in range but slightly lower, continue with the planfrom yesterday. documented in this encounterC[facility] Note* Addendum Note - Teri Llanos LPN - 08/07/2023 10:33 AM EDTAddended by: TERI LLANOS on: 08/07/2023 10:33 AM Modules accepted: Orders [facility]05-14-[facility] Telephone encounter Note* Telephone Encounter - Teri Llanos LPN - 08/07/2023 10:31 AM EDT PATIENT NOTIFIED OF SAME. She states she is needing a refill on the two inhalers. I attempted to pend the Advair but it is requesting an alternative. [facility] Telephone encounter Note* Telephone Encounter - Jorge Madden APRN.CNP - 08/07/2023 8:27 AM EDT Please let patient know that dilantin level was in range but slightly lower, continue with the planfrom yesterday. [facility]05-[facility] Telephone encounter Note* Telephone Encounter - Rene Pinzon RN - 08/06/2023 1:08 PM EDT Called Myrna back and explained Jorge Madden's information. And it appears a new script was sent aswell. [facility]05-13-[facility] Miscellaneous Notes* Telephone Encounter - Rene Pinzon RN - 08/06/2023 1:08 PM EDT Called Myrna back and explained Jorge Madden's information. And it appears a new script was sent aswell. * Telephone Encounter - Jorge Madden APRN.CNP - 08/06/2023 12:52 PM EDT Can we return the call, I understand the confusion. I wrote it as the 4 doses because she may need an additional dose for follow up imaging of the brain with MRI (so [address] scan and 2 pills for MRI or other follow up imaging.) I can resend the script because I think the 1 pill by mouth for 7 days defaulted in to the script with the medication selected. * Telephone Encounter - Rene Pinzon RN - 08/06/2023 10:46 AM EDT Myrna pharmacist from [place] [facility] calling in for clarification on directions for pt's diazepam. Wondering since only 4 tabs were ordered, she doesn't understand the directions of 1 tablet by mouthfor 7 days as that would be at least 7 tablets. Then if pt is to take a pill before her procedure and possibly a second, why the quantity of 4. She just needs to understand the instructions as she doesn't feel it matches the sig. documented in this encounterC[facility]05-[facility] Telephone encounter Note * Telephone Encounter - Jorge Madden APRN.CNP - 08/06/2023 12:52 PM EDT Can we return the call, I understand the confusion. I wrote it as the 4 doses because she may need an additional dose for follow up imaging of the brain with MRI (so [address] scan and 2 pills for MRI or other follow up imaging.) I can resend the script because I think the 1 pill by mouth for 7 days defaulted in to the script with the medication selected. [facility] Telephone encounter Note* Telephone Encounter - Rene Pinzon RN - 08/06/2023 10:46 AM EDT Myrna pharmacist from [facility] calling in for clarification on directions for pt's diazepam. Wondering since only 4 tabs were ordered, she doesn't understand the directions of 1 tablet by mouthfor 7 days as that would be at least 7 tablets. Then if pt is to take a pill before her procedure and possibly a second, why the quantity of 4. She just needs to understand the instructions as she doesn't feel it matches the sig. [facility]05-[facility] History of Present illness Narrative* Jorge Madden APRN.JOSE - 08/06/2023 9:30 AM EDT SUBJECTIVE Cathy aCm is a 48 year old female here today for acute concern. Chief Complaint Patient presents with: Sleep Problem: Significant other states patient was foaming out her mouth and patient was incontinent of urine on Sunday night during her sleep. Patient states when she awoke she had a headache. HPI Cathy Cam is a 48 year old female. Here today acutely for concerns of having had a seizure over the weekend. Accompanied by her significant other, she does not drive. Over the weekend while shewas sleeping her significant other woke up and she had foam around her mouth and had peed herself. She does admit to some increased episodes of staring and being unaware of it. No major changes in hydration or nutrition. Denies any missed medication doses and sleep is good. Neurology appointment isscheduled. Denies any other neurological changes or deficits. Her medications were reviewed today and her list is now up to date. Medications Current Outpatient Medications Medication Sig venlafaxine ER (EFFEXOR XR) 150 mg 24 hr capsule Take 1 capsule by mouth once daily. Lactobacillus acidoph-pectin (ACIDOPHILUS-PECTIN) 75 million cell -100 mg cap Take 1 capsule by mouth once daily. nystatin (MYCOSTATIN) 100,000 unit/mL suspension Take 5 mL by mouth four times daily. 1tsp swish inmouth for several minutes, then swallow (or expectorate) 4 times daily until gone. levothyroxine (SYNTHROID) 25 mcg tablet Take 1 tablet by mouth once daily. Cholecalciferol, Vitamin D3, 25 mcg (1,000 unit) cap Take 1 capsule by mouth once daily. phenytoin ER 300 mg ER capsule Take 1 capsule by mouth two times a day. meloxicam (MOBIC) 15 mg tablet Take 1 tablet by mouth once daily as needed for pain. for pain. Takewith food. albuterol HFA (PROAIR HFA) 90 mcg/actuation inhaler Inhale 2 Puffs as instructed every 4 hours as needed. fluticasone-salmeterol (ADVAIR DISKUS) 500-50 mcg/dose dsdv Inhale 1 Puff as instructed two times aday. Rinse mouth after use. phenytoin ER (DILANTIN) 100 mg ER capsule Take 1 capsule by mouth once daily. Take at bed time withthe 300 mg dose to equal 400 mg at bedtime. iv contrast (will be provided with radiology test) CT Brain WO/W - No IV access, insert saline lockprior to the sedation, infusion, injection for imaging exam. Discontinue saline lock post exam. If Pt. has a central line or IVAD, may access for administration according to line specific nursing protocol. Once exam is complete flush line and de-access according to line specific nursing protocol in the CT contrast administration guidelines link. diazePAM (VALIUM) 2 mg tablet Take 1 tablet by mouth as directed for 7 days. Take first pill 30 minutes to 1 hour before procedure and then second pill as need leading up to procedure for anxiety. No current facility-administered medications for this visit. ALLERGIES Allergen Reactions Quetiapine Other: See Comments Seizures Aspirin Other: See Comments, Unknown Fish Containing Pro* Unknown, Other: See Comments Pear Hives Shellfish Derived Hives Trazodone Contraindication-Medical Surgical, Other: See Comments triggers my seizures Erythromycin Vomiting Other reaction(s): Nausea And Vomiting Latex Rash, Itching ACTIVE PROBLEM LIST Colitis - 06/21/2022 Obesity, Class III, BMI >= 40 - 05/24/2022 Hypothyroidism - 05/24/2022 Seizure Disorder (Hcc) - 05/24/2022 Major Depression, Recurrent (Hcc) - 08/25/2021 Depressive Disorder - 02/25/2007 Anxiety - 02/25/2007 History of Alcohol Abuse - 02/25/2007 Social History Tobacco Use Smoking status: Every Day Packs/day: 0.50 Years: 18.00 Additional pack years: 0.00 Total pack years: 9.00 Types: Cigarettes Smokeless tobacco: Never Tobacco comments: 'a few per day' Substance Use Topics Alcohol use: Yes Alcohol/week: 3.0 standard drinks of alcohol Types: 3 Cans of Beer (12oz) per week Drug use: No Review of Systems Respiratory: Negative. Cardiovascular: Negative. Neurological: Positive for seizures. Negative for dizziness, tremors, syncope, facial asymmetry, speech difficulty, weakness, light-headedness and numbness. OBJECTIVE BP 110/80 Pulse 84 Wt 209 lb (94.8kg) SpO2 98% LMP 07/18/2023 Physical Exam Vitals and nursing note reviewed. Constitutional: General: She is awake. She is not in acute distress. Appearance: Normal appearance. She is well-developed and well-groomed. She is not ill-appearing, toxic-appearing or diaphoretic. HENT: Head: Normocephalic. Right Ear: External ear normal. Left Ear: External ear normal. Nose: Nose normal. Eyes: General: Vision grossly intact. Conjunctiva/sclera: Conjunctivae normal. Pupils: Pupils are equal, round, and reactive to light. Neck: Vascular: No JVD. Trachea: Trachea normal. Pulmonary: Effort: Pulmonary effort is normal. No accessory muscle usage, prolonged expiration or respiratory distress. Musculoskeletal: Cervical back: Neck supple. Skin: General: Skin is warm and dry. Capillary Refill: Capillary refill takes less than 2 seconds. Neurological: General: No focal deficit present. Mental Status: She is alert and oriented to person, place, and time. Mental status is at baseline. Cranial Nerves: Cranial nerves 2-12 are intact. Sensory: Sensation is intact. Motor: Motor function is intact. Coordination: Coordination is intact. Gait: Gait is intact. Psychiatric: Attention and Perception: Attention and perception normal. Mood and Affect: Mood and affect normal. Speech: Speech normal. Behavior: Behavior normal. Behavior is cooperative. Thought Content: Thought content normal. Cognition and Memory: Cognition and memory normal. Judgment: Judgment normal. ASSESSMENT/PLAN: 1. Seizure disorder (HCC) - ICD9: 345.90, ICD10: G40.909 (primary diagnosis) Repeat dilantin levels and plan to increase dose slightly by adding 100 mg at bed time to current dose. Repeat labs with standing order in 2-3 weeks. No recent brain imaging and she has anxiety aboutMRIs so we will start with a CT of the brain to make sure no new issues. Keep follow up with neuro as scheduled. No red flags on neuro exam today. - PHENYTOIN SODIUM EXTENDED 100 MG CAPSULE - CT BRAIN WO/W IVCON - IV CONTRAST (RADIOLOGY PROCEDURE) - PHENYTOIN/DILANTIN 2. Situational anxiety - ICD9: 300.09, ICD10: F41.8 Discussed how to take Valium prior to CT. - DIAZEPAM 2 MG TABLET Portions of this note have been entered by ancillary staff. I have reviewed and when necessary edited, so that they are an adequate record of my encounter with this patient Please note that parts of this document were created using voice recognition software and therefore may contain grammatical errors. Patient verbalizes understanding of instructions from today's visit and in agreement with treatmentplan. Questions answered. Agrees to call the office if questions, concerns of issues with acute symptoms not improving or if they worsen. See diagnoses and orders for additional plan(s). Allergies and medications were reviewed, list was updated, and refills given if needed. Past medical, surgical, social, and family history reviewed and updated as appropriate. Encouraged proper diet & exercise as well as compliance with taking medications. Age- appropriate health preventative measures were discussed. Return if symptoms worsen or fail to improve, for Keep next scheduled appointment.. Jorge Madden APRN-JOSE documented in [place] encounterJohn [place] [id number] Telephone encounter Note * Telephone Encounter - Harleen Dickson RN - 08/04/2023 8:42 AM EDT Patient call in for seizure x 1 last evening. Patient currently has no symptoms. Nurse Triage assessment completed with protocol recommending for disposition of see PCP in 24 hours. Patient scheduled with Jorge on Sunday. Advised patient that if she has another seizure before then she needs to go to ED to be evaluated. Patient voiced understanding. Care advice reviewed with patient, patient stated understanding. Reason for Disposition [1] Seizure of unknown duration AND [2] history of prior seizure(s) AND [3] back to baseline with no new concerning symptoms Answer Assessment - Initial Assessment Questions 1. ONSET: Sunday Evening (08/03/2023) 2. DURATION: Unsure of the duration 3. DESCRIPTION: Patient was sleeping and began foaming from the mouth per patient's boyfriend. Patient was incontinent of urine. 4. CIRCUMSTANCE: Sleeping 5. MENTAL STATUS AFTER SEIZURE: Patient does not seem any more groggy. Patient is alert and oriented x 3. 6. PRIOR SEIZURES: Patient has history of seizures. Patient is on dilantin for seizures. Patient has not had a seizurefor a while. 7. EPILEPSY: Denies 8. MEDICINES: Dilantin; Patient states that she does have memory issues and wonders if she has take extra doses before. 9. INJURY: No injuries to Head or tongue 10. OTHER SYMPTOMS: Patient had headache, but does not have headache anymore Protocols used: [id number] [facility]05-11-2024 Miscellaneous Notes* Telephone Encounter - Harleen Dickson RN - 08/04/2023 8:42 AM EDT Patient call in for seizure x 1 last evening. Patient currently has no symptoms. Nurse Triage assessment completed with protocol recommending for disposition of see PCP in 24 hours. Patient scheduled with Jorge on Sunday. Advised patient that if she has another seizure before then she needs to go to ED to be evaluated. Patient voiced understanding. Care advice reviewed with patient, patient stated understanding. Reason for Disposition [1] Seizure of unknown duration AND [2] history of prior seizure(s) AND [3] back to baseline with no new concerning symptoms Answer Assessment - Initial Assessment Questions 1. ONSET: Sunday Evening (08/03/2023) 2. DURATION: Unsure of the duration 3. DESCRIPTION: Patient was sleeping and began foaming from the mouth per patient's boyfriend. Patient was incontinent of urine. 4. CIRCUMSTANCE: Sleeping 5. MENTAL STATUS AFTER SEIZURE: Patient does not seem any more groggy. Patient is alert and oriented x 3. 6. PRIOR SEIZURES: Patient has history of seizures. Patient is on dilantin for seizures. Patient has not had a seizurefor a while. 7. EPILEPSY: Denies 8. MEDICINES: Dilantin; Patient states that she does have memory issues and wonders if she has take extra doses before. 9. INJURY: No injuries to Head or tongue 10. OTHER SYMPTOMS: Patient had headache, but does not have headache anymore Protocols used: [id number] documented in this encounterC[facility] Telephone encounter Note * Telephone Encounter - Alba Carrillo RN - 08/04/2023 8:25 AM EDT Patient calling with request for She stated she would like to know if her levels are high. For seizure med. Pt stated she is on the seizure med and last night she had a episode which cause her to peeher pants. Patient denies any new or worsening symptoms of which a provider is not aware: Yes. Since pt is not currently having sx. Conference pt to Dr. Madden's nurse Harleen to speak to the doctor about her medication levels. GO TO THE EMERGENCY ROOM OR CALL 911 IF: * You develop any new symptoms * Your condition worsens * You are concerned or anxious about your condition for any other reason. If you have any questions, you can call Nurse quality control assistant back. [facility]05-11-[facility] Miscellaneous Notes* Telephone Encounter - Alba Carrillo RN - 08/04/2023 8:25 AM EDT Patient calling with request for She stated she would like to know if her levels are high. For seizure med. Pt stated she is on the seizure med and last night she had a episode which cause her to peeher pants. Patient denies any new or worsening symptoms of which a provider is not aware: Yes. Since pt is not currently having sx. Conference pt to Dr. Madden's nurse Harleen to speak to the doctor about her medication levels. GO TO THE EMERGENCY ROOM OR CALL 911 IF: * You develop any new symptoms * Your condition worsens * You are concerned or anxious about your condition for any other reason. If you have any questions, you can call Nurse quality control assistant back. documented in this encounterC[facility]04-29-2024 Telephone encounter Note * Telephone Encounter - Savanna Arteaga - 07/23/2023 3:44 PM EDT 1st attempt--left VM for dani EMG and sleep study [facility]04-29-2024 Miscellaneous Notes* Telephone Encounter - Savanna Tavarez - 07/23/2023 3:44 PM EDT 1st attempt--left VM for dani EMG and sleep study * Telephone Encounter - Keri Carbajal OCCA - 07/23/2023 9:39 AM EDT TC to patient who verbalized understanding of providers message. Patient requesting assistance in scheduling EMG appointment. Please contact patient. Thank you. MARCELL Shea * Telephone Encounter - Jorge Madden APRN.PLANT OPERATIONS MANAGER - 07/23/2023 7:16 AM EDT [place]. Please call patient and let them know recent labs looked stable. No changes needed, plan to do other testing as ordered and at this time keep next scheduled appointment. Thanks. Jorge Madden APRN.CNP documented in this encounterC[facility]04-29-2024 Telephone encounter Note * Telephone Encounter - Keri Carbajal OCCA - 07/23/2023 9:39 AM EDT TC to patient who verbalized understanding of providers message. Patient requesting assistance in scheduling EMG appointment. Please contact patient. Thank you. MARCELL Shea [place] [id number] Telephone encounter Note* Telephone Encounter - Jorge Madden APRN.CNP - 07/23/2023 7:16 AM EDT Price. Please call patient and let them know recent labs looked stable. No changes needed, plan to do other testing as ordered and at this time keep next scheduled appointment. Thanks. Jorge Madden APRN.CNP [facility]04-26-2024 Instructions* Patient Instructions* Jorge Madden APRN.CNP - 07/20/2023 10:07 AM EDT Write down how many days you have bleeding for, how much bleeding (I.e. how many pads or tampons you use, how many hours they last for), and if you have any clots/what size they are. documented in this encounterCrystal [facility]04-26-2024 History of Present illness Narrative* Jorge Madden APRN.CNP - 07/20/2023 9:50 AM EDT AUGUSTO Cam is a 48 year old female here today for a check up on her medical problems. Chief Complaint Patient presents with: F/U 3 Month: c/o having no energy and sleeping a lot pain continues in left arm HPI Cathy Cam is a 48 year old female. She is an established patient. She presents today for a routine, 3 month follow up. Taking her medications. Still with issues with pain from the shoulder downto finger tips, on going for a while. Off and on numbness and tingling . Left hand dominant. Prior xray was normal. Liver ultrasound showed fatty liver. No reported recent seizures. Tired a lot during the day. Sleeping good at night. Snores a lot. No witnessed apnea. Dr. Alonzo for metal health needs. Notes some changes in her periods. Not sure specifics thought. Seen with relationship assoc in the past. Her medications were reviewed today and her list is now up to date. Medications Current Outpatient Medications Medication Sig venlafaxine ER (EFFEXOR XR) 150 mg 24 hr capsule Take 1 capsule by mouth once daily. levothyroxine (SYNTHROID) 25 mcg tablet Take 1 tablet by mouth once daily. Cholecalciferol, Vitamin D3, 25 mcg (1,000 unit) cap Take 1 capsule by mouth once daily. phenytoin ER 300 mg ER capsule Take 1 capsule by mouth two times a day. meloxicam (MOBIC) 15 mg tablet Take 1 tablet by mouth once daily as needed for pain. for pain. Takewith food. albuterol HFA (PROAIR HFA) 90 mcg/actuation inhaler Inhale 2 Puffs as instructed every 4 hours as needed. fluticasone-salmeterol (ADVAIR DISKUS) 500-50 mcg/dose dsdv Inhale 1 Puff as instructed two times aday. Rinse mouth after use. Lactobacillus acidoph-pectin (ACIDOPHILUS-PECTIN) 75 million cell -100 mg cap Take 1 capsule by mouth once daily. nystatin (MYCOSTATIN) 100,000 unit/mL suspension Take 5 mL by mouth four times daily. 1tsp swish inmouth for several minutes, then swallow (or expectorate) 4 times daily until gone. No current facility-administered medications for this visit. ALLERGIES Allergen Reactions Quetiapine Other: See Comments Seizures Aspirin Other: See Comments, Unknown Fish Containing Pro* Unknown, Other: See Comments Pear Hives Shellfish Derived Hives Trazodone Contraindication-Medical Surgical, Other: See Comments triggers my seizures Erythromycin Vomiting Other reaction(s): Nausea And Vomiting Latex Rash, Itching ACTIVE PROBLEM LIST Colitis - 06/21/2022 Obesity, Class III, BMI >= 40 - 05/24/2022 Hypothyroidism - 05/24/2022 Seizure Disorder (Hcc) - 05/24/2022 Major Depression, Recurrent (Hcc) - 08/25/2021 Depressive Disorder - 02/25/2007 Anxiety - 02/25/2007 History of Alcohol Abuse - 02/25/2007 Social History Tobacco Use Smoking status: Every Day Packs/day: 0.50 Years: 18.00 Additional pack years: 0.00 Total pack years: 9.00 Types: Cigarettes Smokeless tobacco: Never Tobacco comments: 'a few per day' Substance Use Topics Alcohol use: Yes Alcohol/week: 3.0 standard drinks of alcohol Types: 3 Cans of Beer (12oz) per week Drug use: No Review of Systems Respiratory: Negative. Cardiovascular: Negative. OBJECTIVE BP 118/80 Pulse 80 Wt 209 lb (94.8kg) SpO2 98% LMP 07/18/2023 Physical Exam Vitals and nursing note reviewed. Constitutional: General: She is awake. She is not in acute distress. Appearance: Normal appearance. She is well-developed and well-groomed. She is not ill-appearing, toxic-appearing or diaphoretic. HENT: Head: Normocephalic. Right Ear: External ear normal. Left Ear: External ear normal. Nose: Nose normal. Eyes: General: Vision grossly intact. Conjunctiva/sclera: Conjunctivae normal. Pupils: Pupils are equal, round, and reactive to light. Neck: Vascular: No JVD. Trachea: Trachea normal. Cardiovascular: Rate and Rhythm: Normal rate and regular rhythm. Pulses: Normal pulses. Heart sounds: Normal heart sounds. No murmur heard. Pulmonary: Effort: Pulmonary effort is normal. No accessory muscle usage, prolonged expiration or respiratory distress. Breath sounds: Normal breath sounds. Musculoskeletal: Cervical back: Neck supple. Skin: General: Skin is warm and dry. Capillary Refill: Capillary refill takes less than 2 seconds. Neurological: General: No focal deficit present. Mental Status: She is alert and oriented to person, place, and time. Mental status is at baseline. Psychiatric: Attention and Perception: Attention and perception normal. Mood and Affect: Mood and affect normal. Speech: Speech normal. Behavior: Behavior normal. Behavior is cooperative. Thought Content: Thought content normal. Cognition and Memory: Cognition and memory normal. Judgment: Judgment normal. ASSESSMENT/PLAN: 1. Seizure disorder (HCC) - ICD9: 345.90, ICD10: G40.909 (primary diagnosis) WE will have her follow up with neurology to ensure her excess tiredness is not from increased seizure activity she is not aware of. - CONSULT TO NEUROLOGY - PHENYTOIN/DILANTIN 2. Alkaline phosphatase elevation - ICD9: 790.5, ICD10: R74.8 Stable. 3. Fatty liver - ICD9: 571.8, ICD10: K76.0 4. Hypothyroidism, unspecified type - ICD9: 244.9, ICD10: E03.9 - THYROID STIMULATING HORMONE - T3, FREE - T4 FREE/FREE THYROXINE 5. Vitamin D deficiency - ICD9: 268.9, ICD10: E55.9 - VITAMIN D 25 HYDROXY 6. MAI (obstructive sleep apnea) - ICD9: 327.23, ICD10: G47.33 - POLYSOMNOGRAM (PSG) 7. IFG (impaired fasting glucose) - ICD9: 790.21, ICD10: R73.01 - HEMOGLOBIN A1C 8. DUB (dysfunctional uterine bleeding) - ICD9: 626.8, ICD10: N93.8 Discussed specific to write down/record and when to call in. - COMPLETE BLOOD COUNT AND DIFFERENTIAL - IRON AND TIBC - FERRITIN 9. Left arm pain - ICD9: 729.5, ICD10: M79.602 Check EMG. - EMG(NEURO/NI) 10. Oral thrush - ICD9: 112.0, ICD10: B37.0 - NYSTATIN 100,000 UNIT/ML ORAL SUSPENSION 11. Encounter for therapeutic drug monitoring - ICD9: V58.83, ICD10: Z51.81 - COMPREHENSIVE METABOLIC PANEL - THYROID STIMULATING HORMONE - T3, FREE - T4 FREE/FREE THYROXINE - PHENYTOIN/DILANTIN Portions of this note have been entered by ancillary staff. I have reviewed and when necessary edited, so that they are an adequate record of my encounter with this patient Please note that parts of this document were created using voice recognition software and therefore may contain grammatical errors. Patient verbalizes understanding of instructions from today's visit and in agreement with treatmentplan. Questions answered. Agrees to call the office if questions, concerns of issues with acute symptoms not improving or if they worsen. See diagnoses and orders for additional plan(s). Allergies and medications were reviewed, list was updated, and refills given if needed. Past medical, surgical, social, and family history reviewed and updated as appropriate. Encouraged proper diet & exercise as well as compliance with taking medications. Age- appropriate health preventative measures were discussed. Return in about 3 months (around 10/19/2023) for Follow up on chronic conditions and medications.. Jorge Madden APRN-JOSE [facility] Miscellaneous Notes* Telephone Encounter - Michelle Alvarez LPN - 07/05/2023 10:38 AM EDT Patient has been identified by name and date of : Pharmacy phones for refill(s): Requested Prescriptions Pending Prescriptions Disp Refills levothyroxine (SYNTHROID) 25 mcg tablet 90 tablet 3 Sig: Take 1 tablet by mouth once daily. Cholecalciferol, Vitamin D3, 25 mcg (1,000 unit) cap 30 capsule 11 Sig: Take 1 capsule by mouth once daily. Date of last office visit in primary care: 04/20/2023 Date of next office visit in primary care: 07/20/2023 Please advise. Thank you. Michelle Alvarez LPN. documented in this encounterC[facility]03-11-2024 History of Present illness Narrative* Candis Ortega RDMS - 06/04/2023 7:00 AM EDT Radiology Service Progress Note PATIENT NAME: Cathy Cam DATE OF SERVICE: June 04, 2023 TIME: 9:22 AM PATIENT IDENTITY VERIFICATION COMPLETED USING TWO (2) IDENTIFIERS: Name and Date of confirmedby patient verbally. FALL SCREENING: Has the patient had 2 falls in the last year or 1 fall with injury or currently using an Ambulatory Assistive Device (Walker, Cane, Wheelchair, Crutches, etc.)? No PATIENT GENDER DATA: Female. status: : No status: NO. PATIENT RELEVANT IMPLANT DATA REVIEWED: Not Applicable PATIENT PRESENTS WITH AN IMPLANTABLE OR ATTACHED MUD ANALYSIS OPERATOR: No RADIOLOGY DEPARTMENT: Ultrasound PERIPHERAL IV DATA: Not applicable SIGNED BY: Candis Ortega RDMS RVT June 04, 2023 9:22 AM documented in this encounterC[facility]02-12-2024 Miscellaneous Notes* Telephone Encounter - Jorge Madden APRN.CNP - 05/07/2023 4:27 PM EST Labs show the alkaline phosphate elevation is secondary to the liver. I have ordered an RUQ ultrasound, please call to help get this scheduled. Thanks documented in this encounterC[facility]02-09-2024 Miscellaneous Notes* Telephone Encounter - Jennifer Castillo RN - 05/04/2023 4:44 PM EST Pt called and is notified of providers results and instructions. Pt voices understanding. She said Ibuprofen and Naproxen just make her drowsy. Jennifer Castillo, BULMARO * Telephone Encounter - Jennifer Agarwal APRN.CNS - 05/03/2023 4:32 PM EST She could try meloxicam once daily as needed for pain. Notes indicate an aspirin allergy with unknown adverse effect. If she has taken ibuprofen or naproxen in the past without problems she should be able to take thismedication. * Telephone Encounter - Katia Maldonado LPN - 05/03/2023 9:56 AM EST Pt was seen in office 04/20/23 for left shoulder & arm pain. Pt states it is still painful, not worse but not better. Pt rates pain a 10 at times on 1-10 pain scale. She is taking Tylenol, using heat & icy hot. Pt asking if she can get something for pain? Uses [facility] Pt also asking for lab results from 04/20/23. Katia Maldonado LPN documented in this encounterC[facility]01-26-2024 History of Present illness Narrative* Barbara Leal RT(R) - 04/20/2023 11:00 AM EST Radiology Service Progress Note PATIENT NAME: Cathy Cam DATE OF SERVICE: April 20, 2023 TIME: 10:54 AM PATIENT IDENTITY VERIFICATION COMPLETED USING TWO (2) IDENTIFIERS: Name and Date of confirmedby patient verbally. FALL SCREENING: Has the patient had 2 falls in the last year or 1 fall with injury or currently using an Ambulatory Assistive Device (Walker, Cane, Wheelchair, Crutches, etc.)? No PATIENT GENDER DATA: Female. status: : No status: NO. PATIENT RELEVANT IMPLANT DATA REVIEWED: Yes PATIENT PRESENTS WITH AN IMPLANTABLE OR ATTACHED MUD ANALYSIS OPERATOR: No RADIOLOGY DEPARTMENT: General X-ray: Exam(s) Completed: Upper Extremity X- Ray(s): Shoulder, AP / TRUE AP / AXILLARY left PERIPHERAL IV DATA: Not applicable SIGNED BY: RT Shannon(R) April 20, 2023 10:54 AM documented in this encounterC[facility]10-27-2023 History of Present illness Narrative* Jorge Madden APRN.PLANT OPERATIONS MANAGER - 01/19/2023 9:23 AM EDT SUBJECTIVE Cathy Cam is a 47 year old female here today for a check up on her medical problems. Chief Complaint Patient presents with: Recheck: 3 MONTH FOLLOW UP HPI Cathy Cam is a 47 year old female. Here today for her routine 3 month follow up. Accompanied by her boyfriend today. Overall feeling okay. Had a day or two of not feeling great, felt off. Wouldlike labs done today to make sure everything is okay. Has not started chantix yet. Trying to cut back on smoking. Breathing is doing well. Her medications were reviewed today and her list is now up to date. Medications Current Outpatient Medications Medication Sig phenytoin ER 300 mg ER capsule Take 1 capsule by mouth daily at bedtime. Take 200 mg capsule in morning albuterol HFA (PROAIR HFA) 90 mcg/actuation inhaler Inhale 2 Puffs as instructed every 4 hours as needed. fluticasone-salmeterol (ADVAIR DISKUS) 500-50 mcg/dose dsdv Inhale 1 Puff as instructed two times aday. Rinse mouth after use. phenytoin ER (DILANTIN) 100 mg ER capsule Take 2 capsules by mouth once daily. Take in the am, hyxo000 mg dose in the pm levothyroxine (SYNTHROID) 25 mcg tablet Take 1 tablet by mouth once daily. Cholecalciferol, Vitamin D3, 25 mcg (1,000 unit) cap Take 1 capsule by mouth once daily. venlafaxine ER (EFFEXOR XR) 75 mg 24 hr capsule Take 150 mg by mouth once daily. varenicline (CHANTIX STARTING MONTH BOX) 0.5 mg (11)- 1 mg (42) tablet Take 0.5 mg by mouth once daily on Days 1 through 3, THEN 0.5 mg twice daily on Days 4 through 7, THEN 1 mg twice daily on Day 8and thereafter [START ON 01/22/2023] varenicline (CHANTIX CONTINUING MONTH BOX) 1 mg tablet Take 1 tablet by mouthtwo times a day. No current facility-administered medications for this visit. ALLERGIES Allergen Reactions Quetiapine Other: See Comments Seizures Aspirin Other: See Comments, Unknown Fish Containing Pro* Unknown, Other: See Comments Pear Hives Shellfish Derived Hives Trazodone Contraindication-Medical Surgical, Other: See Comments triggers my seizures Erythromycin Vomiting Other reaction(s): Nausea And Vomiting Latex Rash, Itching ACTIVE PROBLEM LIST Colitis - 06/21/2022 Obesity, Class III, BMI >= 40 - 05/24/2022 Hypothyroidism - 05/24/2022 Seizure Disorder (Hcc) - 05/24/2022 Major Depression, Recurrent (Hcc) - 08/25/2021 Depressive Disorder - 02/25/2007 Anxiety - 02/25/2007 History of Alcohol Abuse - 02/25/2007 Social History Tobacco Use Smoking status: Every Day Packs/day: 0.50 Years: 18.00 Additional pack years: 0.00 Total pack years: 9.00 Types: Cigarettes Smokeless tobacco: Never Tobacco comments: 'a few per day' Substance Use Topics Alcohol use: Yes Alcohol/week: 7.5 standard drinks of alcohol Types: 3 Cans of Beer (12oz) per week Drug use: No Review of Systems Respiratory: Negative. Cardiovascular: Negative. OBJECTIVE BP 110/72 Pulse 97 Wt 204 lb (92.5kg) SpO2 98% LMP 01/12/2023 Physical Exam Vitals and nursing note reviewed. Constitutional: General: She is awake. She is not in acute distress. Appearance: Normal appearance. She is well-developed and well-groomed. She is not ill-appearing, toxic-appearing or diaphoretic. HENT: Head: Normocephalic. Right Ear: External ear normal. Left Ear: External ear normal. Nose: Nose normal. Eyes: General: Vision grossly intact. Conjunctiva/sclera: Conjunctivae normal. Pupils: Pupils are equal, round, and reactive to light. Neck: Vascular: No JVD. Trachea: Trachea normal. Cardiovascular: Rate and Rhythm: Normal rate and regular rhythm. Pulses: Normal pulses. Heart sounds: Normal heart sounds. No murmur heard. Pulmonary: Effort: Pulmonary effort is normal. No accessory muscle usage, prolonged expiration or respiratory distress. Breath sounds: Normal breath sounds. Musculoskeletal: Cervical back: Neck supple. Skin: General: Skin is warm and dry. Capillary Refill: Capillary refill takes less than 2 seconds. Neurological: General: No focal deficit present. Mental Status: She is alert and oriented to person, place, and time. Mental status is at baseline. Psychiatric: Attention and Perception: Attention and perception normal. Mood and Affect: Mood and affect normal. Speech: Speech normal. Behavior: Behavior normal. Behavior is cooperative. Thought Content: Thought content normal. Cognition and Memory: Cognition and memory normal. Judgment: Judgment normal. ASSESSMENT/PLAN: 1. Seizure disorder (HCC) - ICD9: 345.90, ICD10: G40.909 (primary diagnosis) Stable. - PHENYTOIN/DILANTIN 2. Chronic obstructive pulmonary disease, unspecified COPD type (HCC) - ICD9: 496, ICD10: J44.9 Stable. Encouraged smoking cessation. 3. Hypothyroidism, unspecified type - ICD9: 244.9, ICD10: E03.9 - Instructed patient on importance of taking on an empty stomach either first thing in the morning or at bedtime. - check labs today - TSH BLD - T4 FREE/FREE THYROX - T3 FREE BLD 4. Vitamin D deficiency - ICD9: 268.9, ICD10: E55.9 - VITAMIN D 25 HYDROXY 5. IFG (impaired fasting glucose) - ICD9: 790.21, ICD10: R73.01 - HGB A1C 6. Tobacco use disorder - ICD9: 305.1, ICD10: F17.200 - Cessation encouraged. - Physiologic and physical aspects of tobacco addiction as well as strategies for quitting were discussed. - Counseling was given focusing on the harmful effects of this addiction especially given the patient's medical condition(s) which will be worsened because of the chemicals in tobacco. - Counseling was given 3-4 minutes. 7. Encounter for immunization - ICD9: V03.89, ICD10: Z23 - INFLUENZA VACCINE, AGE 6 MO - 64 YR, QUADRIVALENT (AFLURIA, FLULAVAL, FLUZONE) - PNEUMOCOCCAL VACCINE (PREVNAR 20) 8. Encounter for therapeutic drug monitoring - ICD9: V58.83, ICD10: Z51.81 - CBC + DIFF - COMP METABOLIC PANEL - TSH BLD - HGB A1C - T4 FREE/FREE THYROX - T3 FREE BLD - PHENYTOIN/DILANTIN Portions of this note have been entered by ancillary staff. I have reviewed and when necessary edited, so that they are an adequate record of my encounter with this patient Please note that parts of this document were created using voice recognition software and therefore may contain grammatical errors. Patient verbalizes understanding of instructions from today's visit and in agreement with treatmentplan. Questions answered. Agrees to call the office if questions, concerns of issues with acute symptoms not improving or if they worsen. See diagnoses and orders for additional plan(s). Allergies and medications were reviewed, list was updated, and refills given if needed. Past medical, surgical, social, and family history reviewed and updated as appropriate. Encouraged proper diet & exercise as well as compliance with taking medications. Age- appropriate health preventative measures were discussed. Return in about 3 months (around 04/21/2023), or if symptoms worsen or fail to improve, for Follow up on chronic conditions and medications.. Jorge Madden APRN-JOSE documented in this encounterC[facility]10-25-2023 Miscellaneous Notes* Telephone Encounter - Hilary Somers RN - 01/17/2023 11:04 AM EDT Medication refill requested by [facility]. Requested Prescriptions Pending Prescriptions Disp Refills phenytoin ER 300 mg ER capsule 30 capsule 2 Sig: Take 1 capsule by mouth daily at bedtime. Take 200 mg capsule in morning HUMA: 12/25/22 NOV: 01/19/23 Labs: WBC (k/uL) Date Value 10/20/2022 6.89 Hemoglobin (g/dL) Date Value 10/20/2022 13.9 Platelet Count (k/uL) Date Value 10/20/2022 283 Glucose (mg/dL) Date Value 10/20/2022 75 BUN (mg/dL) Date Value 10/20/2022 11 Creatinine (mg/dL) Date Value 10/20/2022 0.66 Sodium (mmol/L) Date Value 10/20/2022 135 (L) Potassium (mmol/L) Date Value 10/20/2022 4.2 Calcium, Total (mg/dL) Date Value 10/20/2022 9.4 Alkaline Phosphatase (U/L) Date Value 10/20/2022 150 (H) Bilirubin, Total (mg/dL) Date Value 10/20/2022 0.3 AST (U/L) Date Value 10/20/2022 14 ALT (U/L) Date Value 10/20/2022 16 Cholesterol, Total (mg/dL) Date Value 05/24/2022 159 Triglyceride (mg/dL) Date Value 05/24/2022 76 TSH (mIU/L) Date Value 05/24/2022 1.910 Hilary Somers RN documented in this encounterCleveland [id number] Miscellaneous Notes* Telephone Encounter - Dahlia Amezquita LPN - 01/04/2023 2:21 PM EDT Spoke with pt and information listed below given. Pt verbalizes understanding. Dahlia Amezquita LPN * Telephone Encounter - Chelsey Tobar LPN - 01/04/2023 8:40 AM EDT No answer. Left message for patient to call office and ask to speak to a nurse regarding cough. * Telephone Encounter - Jorge Madden APRN.JOSE - 01/03/2023 4:38 PM EDT I'm going to have her try adding mucinex to her current regimen to see if that helps improve her symptoms. I sent this in to her pharmacy. I do agree with the night sweats being from the Effexor increase. * Telephone Encounter - Laura Valderrama RN - 01/03/2023 1:57 PM EDT Patient calling to say her cough has not improved with Azithromycin (completed), Prednisone (has 4 days left, missed some doses) and Albuterol inhaler which she says she has only been using twice daily. Advised patient she can use every 4 hours as needed. She says she also continues to have night sweats but thinks it may be due to recent increase in Effexor. She is coughing occasional thick yellowish phlegm. She says she is still wheezing when she is lying down or walking. Asking for recommendation. Laura Valderrama RN documented in this encounterC[facility]10-02-2023 History of Present illness Narrative* Jorge Madden APRN.PLANT OPERATIONS MANAGER - 12/25/2022 8:54 AM EDT SUBJECTIVE Cathy Cam is a 47 year old female here today for a check up on her medical problems. Chief Complaint Patient presents with: URI: seen in urgent care on 12/04/2022. Did improve but about 4 days ago started with symptoms again cough with nasal drainage HPI Cathy Cam is a 47 year old female. Presents today for concerns of continued cough. [facility]. Issues with URI. Seen with [facility]. Advised URI, quit smoking. CXR at thattime was negative. Cough is persistent. Short of breath, wheezing. Cough is only a little productive. Smoking about a pack to two packs per day. Inhaler is helping. Her medications were reviewed today and her list is now up to date. Medications Current Outpatient Medications Medication Sig phenytoin ER (DILANTIN) 100 mg ER capsule Take 2 capsules by mouth once daily. Take in the am, noym646 mg dose in the pm phenytoin ER 300 mg ER capsule Take 1 capsule by mouth daily at bedtime. Take 200 mg capsule in morning levothyroxine (SYNTHROID) 25 mcg tablet Take 1 tablet by mouth once daily. Cholecalciferol, Vitamin D3, 25 mcg (1,000 unit) cap Take 1 capsule by mouth once daily. venlafaxine ER (EFFEXOR XR) 75 mg 24 hr capsule Take 150 mg by mouth once daily. varenicline (CHANTIX STARTING MONTH BOX) 0.5 mg (11)- 1 mg (42) tablet Take 0.5 mg by mouth once daily on Days 1 through 3, THEN 0.5 mg twice daily on Days 4 through 7, THEN 1 mg twice daily on Day 8and thereafter [START ON 01/22/2023] varenicline (CHANTIX CONTINUING MONTH BOX) 1 mg tablet Take 1 tablet by mouthtwo times a day. albuterol HFA (PROAIR HFA) 90 mcg/actuation inhaler Inhale 2 Puffs as instructed every 4 hours as needed. predniSONE (DELTASONE) 10 mg tablet Take 2 tabs po BID for 2 days then 1 tab po BID for 2 days then1/2 tab po BID for 2 days then 1/2 tab daily for 2 days then stop azithromycin (ZITHROMAX) 250 mg tablet Take 2 tablets by mouth once daily for 1 day, THEN 1 tablet once daily for 4 days. fluticasone-salmeterol (ADVAIR DISKUS) 500-50 mcg/dose dsdv Inhale 1 Puff as instructed two times aday. Rinse mouth after use. busPIRone (BUSPAR) 5 mg tablet Take 1 tablet by mouth three times daily as needed. (Patient not taking: Reported on 10/20/2022) atorvastatin (LIPITOR) 20 mg tablet Take by mouth. (Patient not taking: Reported on 06/21/2022) No current facility-administered medications for this visit. ALLERGIES Allergen Reactions Quetiapine Other: See Comments Seizures Aspirin Other: See Comments, Unknown Fish Containing Pro* Unknown, Other: See Comments Pear Hives Shellfish Derived Hives Trazodone Contraindication-Medical Surgical, Other: See Comments triggers my seizures Erythromycin Vomiting Other reaction(s): Nausea And Vomiting Latex Rash, Itching ACTIVE PROBLEM LIST Colitis - 06/21/2022 Obesity, Class III, BMI >= 40 - 05/24/2022 Hypothyroidism - 05/24/2022 Seizure Disorder (Hcc) - 05/24/2022 Major Depression, Recurrent (Hcc) - 08/25/2021 Depressive Disorder - 02/25/2007 Anxiety - 02/25/2007 History of Alcohol Abuse - 02/25/2007 Social History Tobacco Use Smoking status: Every Day Packs/day: 0.50 Years: 18.00 Additional pack years: 0.00 Total pack years: 9.00 Types: Cigarettes Smokeless tobacco: Never Tobacco comments: 'a few per day' Substance Use Topics Alcohol use: Yes Alcohol/week: 7.5 standard drinks of alcohol Types: 3 Cans of Beer (12oz) per week Drug use: No Review of Systems Respiratory: Positive for cough, shortness of breath and wheezing. Negative for apnea, choking, chest tightness and stridor. Cardiovascular: Negative. OBJECTIVE BP 114/80 Pulse 103 Temp (Src) 98.5 (Temporal) Wt 207 lb (93.9kg) SpO2 97% LMP 12/19/2022 Physical Exam Vitals and nursing note reviewed. Constitutional: General: She is awake. She is not in acute distress. Appearance: Normal appearance. She is well-developed and well-groomed. She is not ill-appearing, toxic-appearing or diaphoretic. HENT: Head: Normocephalic. Right Ear: External ear normal. Left Ear: External ear normal. Nose: Nose normal. Eyes: General: Vision grossly intact. Conjunctiva/sclera: Conjunctivae normal. Pupils: Pupils are equal, round, and reactive to light. Neck: Vascular: No JVD. Trachea: Trachea normal. Cardiovascular: Rate and Rhythm: Normal rate and regular rhythm. Pulses: Normal pulses. Heart sounds: Normal heart sounds. No murmur heard. Pulmonary: Effort: Pulmonary effort is normal. No accessory muscle usage, prolonged expiration or respiratory distress. Breath sounds: Examination of the right-middle field reveals wheezing. Examination of the left-middle field reveals wheezing. Examination of the right- lower field reveals decreased breath sounds and wheezing. Examination of the left-lower field reveals decreased breath sounds and wheezing. Decreased breath sounds and wheezing present. No rhonchi or rales. Musculoskeletal: Cervical back: Neck supple. Skin: General: Skin is warm and dry. Capillary Refill: Capillary refill takes less than 2 seconds. Neurological: General: No focal deficit present. Mental Status: She is alert and oriented to person, place, and time. Mental status is at baseline. Psychiatric: Attention and Perception: Attention and perception normal. Mood and Affect: Mood and affect normal. Speech: Speech normal. Behavior: Behavior normal. Behavior is cooperative. Thought Content: Thought content normal. Cognition and Memory: Cognition and memory normal. Judgment: Judgment normal. ASSESSMENT/PLAN: 1. Chronic obstructive pulmonary disease with acute exacerbation (HCC) - ICD9: 491.21, ICD10: J44.1(primary diagnosis) Start z pack, steroid taper, albuterol PRN, start Advair or covered alternative, work on quitting smoking. - ALBUTEROL SULFATE HFA 90 MCG/ACTUATION AEROSOL INHALER - PREDNISONE 10 MG TABLET - AZITHROMYCIN 250 MG TABLET - FLUTICASONE 500 MCG-SALMETEROL 50 MCG/DOSE BLISTR POWDR FOR INHALATION 2. Subacute cough - ICD9: 786.2, ICD10: R05.2 - ALBUTEROL SULFATE HFA 90 MCG/ACTUATION AEROSOL INHALER - PREDNISONE 10 MG TABLET - AZITHROMYCIN 250 MG TABLET - FLUTICASONE 500 MCG-SALMETEROL 50 MCG/DOSE BLISTR POWDR FOR INHALATION 3. Tobacco use disorder - ICD9: 305.1, ICD10: F17.200 - Cessation encouraged. - Physiologic and physical aspects of tobacco addiction as well as strategies for quitting were discussed. - Counseling was given focusing on the harmful effects of this addiction especially given the patient's medical condition(s) which will be worsened because of the chemicals in tobacco. - Prescription for Chantix given - VARENICLINE 0.5 MG (11)-1 MG (42) TABLETS IN A DOSE PACK - VARENICLINE 1 MG TABLET Portions of this note have been entered by ancillary staff. I have reviewed and when necessary edited, so that they are an adequate record of my encounter with this patient Please note that parts of this document were created using voice recognition software and therefore may contain grammatical errors. Patient verbalizes understanding of instructions from today's visit and in agreement with treatmentplan. Questions answered. Agrees to call the office if questions, concerns of issues with acute symptoms not improving or if they worsen. See diagnoses and orders for additional plan(s). Allergies and medications were reviewed, list was updated, and refills given if needed. Past medical, surgical, social, and family history reviewed and updated as appropriate. Encouraged proper diet & exercise as well as compliance with taking medications. Age- appropriate health preventative measures were discussed. Return if symptoms worsen or fail to improve, for Keep next scheduled appointment.. Jorge Madden APRN-JOSE documented in this encounterCrystal Clinic [facility]09-21-2023 Miscellaneous Notes* Telephone Encounter - Katia Maldonado LPN - 12/14/2022 9:38 AM EDT Atiya from [facility] pharmacy calling, she received a refill req for phenytoin 200mg, they are unable toget 200mg & is asking if it is ok to fill with 100mg instead? If so, please send to [facility] to dispense 60 tabs. Katia Maldnoado LPN documented in this encounterCrystal Clinic Orth[facility] Center09-12-2023 Miscellaneous Notes* Telephone Encounter - Joslyn Fuentes RN - 12/05/2022 7:54 AM EDT Reason: Patient calling with request for lab result. Patient denies any new or worsening symptoms of which a provider is not aware: Yes. Patient requesting results of COVID 19 test. Outcome: Patient informed that results were negative. Patient will consult pharmacy regarding what cough syrups you can take along with her other prescribed medications. GO TO THE EMERGENCY ROOM OR CALL 911 IF: * You develop any new symptoms * Your condition worsens If you have any questions, you can call Nurse quality control assistant back. documented in this encounterCrystal Clinic Orthopedic Center09-11-2023 History of Present illness Narrative* Barbara Leal RT(R) - 12/04/2022 8:30 AM EDT Radiology Service Progress Note PATIENT NAME: Cathy Cam DATE OF SERVICE: December 04, 2022 TIME: 8:50 AM PATIENT IDENTITY VERIFICATION COMPLETED USING TWO (2) IDENTIFIERS: Name and Date of confirmedby patient verbally. FALL SCREENING: Has the patient had 2 falls in the last year or 1 fall with injury or currently using an Ambulatory Assistive Device (Walker, Cane, Wheelchair, Crutches, etc.)? No PATIENT GENDER DATA: Female. status: : No status: NO. PATIENT RELEVANT IMPLANT DATA REVIEWED: Yes RADIOLOGY DEPARTMENT: General X-ray: Exam(s) Completed: Chest X-Ray PERIPHERAL IV DATA: Not applicable SIGNED BY: RT Shannon(R) December 04, 2022 8:50 AM documented in this encounterCrystal Clinic Orthopedic Center09-11-2023 History of Present illness Narrative* Freedom Graham APRN.PLANT OPERATIONS MANAGER - 12/04/2022 8:21 AM EDT Subjective HPI HPI Cathy Cam is a 47 year old female who presents today for CC of cough. This started 7 daysago, but has been on/off for months. Has tried otc . Symptoms are worsened by smoking. Risk factorsreports smokes a lot more than 1 pack per day. Denies st, congestion, fever .Patient presents with: Cough: X months PAST MEDICAL HISTORY Diagnosis Date Adjustment disorder with depressed mood Anxiety state, unspecified Esophageal reflux Other and unspecified alcohol dependence, unspecified drinking behavior ETOH depend. syn. PMH - PAST MEDICAL HISTORY OF seizures PMH - PAST MEDICAL HISTORY OF 1miscarriage and one labor at 6mo. 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 Tobacco use disorder Unspecified asthma(493.90) PAST SURGICAL HISTORY Procedure Laterality Date UNSPECIFIED ORAL SURGERY PROCEDURE, BY REPORT wisdom teeth removed ALLERGIES Quetiapine, Aspirin, Fish Containing Products, Pear, Shellfish Derived, Trazodone, Erythromycin, and Latex MEDICATIONS albuterol HFA (PROVENTIL HFA, VENTOLIN HFA) 90 mcg/actuation inhaler Inhale 2 Puffs as instructed every 4 hours as needed. Phenytoin Sodium Extended 200 mg ER capsule Take 1 capsule by mouth once daily. Take 1 capsules in morning and then take the 300 mg capsules at night phenytoin ER 300 mg ER capsule Take 1 capsule by mouth daily at bedtime. Take 200 mg capsule in morning levothyroxine (SYNTHROID) 25 mcg tablet Take 1 tablet by mouth once daily. Cholecalciferol, Vitamin D3, 25 mcg (1,000 unit) cap Take 1 capsule by mouth once daily. venlafaxine ER (EFFEXOR XR) 75 mg 24 hr capsule Take 150 mg by mouth once daily. busPIRone (BUSPAR) 5 mg tablet Take 1 tablet by mouth three times daily as needed. (Patient not taking: Reported on 10/20/2022) atorvastatin (LIPITOR) 20 mg tablet Take by mouth. (Patient not taking: Reported on 06/21/2022) FAMILY HISTORY Problem Relation Age of Onset Cancer Maternal Grandfather prostate, his family has cancers Diabetes Maternal Grandmother Hypertension Father Lipids Mother Emphysema Paternal Grandfather Diabetes Paternal Grandfather other (cirrosis of the liver [Other]) Paternal Grandmother Cancer Paternal Grandmother Emphysema Father Social History Tobacco Use Smoking status: Every Day Packs/day: 0.50 Years: 18.00 Additional pack years: 0.00 Total pack years: 9.00 Types: Cigarettes Smokeless tobacco: Never Tobacco comments: 'a few per day' Substance Use Topics Alcohol use: Yes Alcohol/week: 7.5 standard drinks of alcohol Types: 3 Cans of Beer (12oz) per week Drug use: No Review of Systems Constitutional: Negative for fever. HENT: Negative for congestion, nosebleeds and sore throat. Respiratory: Positive for cough and sputum production. Negative for shortness of breath and wheezing. Cardiovascular: Negative for chest pain. Musculoskeletal: Negative for neck pain. Objective Blood pressure 132/91, pulse 104, temperature 36.3 C (97.4 F), resp. rate 18, weight 94.2 kg (207 lb 9.6 oz), last menstrual period 09/29/2022, SpO2 97 %, unknown if currently . Physical Exam Constitutional: General: She is not in acute distress. Appearance: She is not toxic-appearing or diaphoretic. HENT: Head: Normocephalic and atraumatic. Cardiovascular: Rate and Rhythm: Normal rate and regular rhythm. Heart sounds: Normal heart sounds, S1 normal and S2 normal. Pulmonary: Effort: Pulmonary effort is normal. Breath sounds: Normal breath sounds. Lymphadenopathy: Cervical: No cervical adenopathy. Right cervical: No superficial cervical adenopathy. Left cervical: No superficial cervical adenopathy. Neurological: Mental Status: She is alert and oriented to person, place, and time. Gait: Gait is intact. ASSESSMENT/PLAN: 1. Subacute cough - ICD9: 786.2, ICD10: R05.2 Xray neg Discussed smoking cessation F/u with pcp if s/s persist. -If you experience chest pain/shortness of breath go to ER - XR CHEST 2V FRONTAL/LAT IMPRESSION: No acute radiographic abnormality. Dictated by : ASUNCION BHATT MD - JASMINEID NAAT, ROUTINE Freedom Graham APRN.PLANT OPERATIONS MANAGER documented in this encounterCrystal Clinic Orthopedic Center08-22-2023 Miscellaneous Notes* Telephone Encounter - Teri Llanos LPN - 11/14/2022 2:01 PM EDT PATIENT NOTIFIED OF SAME. * Telephone Encounter - Jorge Madden APRN.CNP - 11/14/2022 1:01 PM EDT If tylenol was helping it is okay to continue with that as needed since liver function on most recent labs is stable. She can also do warm moist compresses to the area, that may also help. * Telephone Encounter - Sebastien Morales RN - 11/14/2022 12:25 PM EDT Patient calls and notified of results and providers instructions. Patient reports the area at timescan be painful. Pain extends from the raised area under arm pit up into the top of her shoulder. She was taking tylenol twice daily and switched to a muscle rub. She reports the muscle rub lasts a short time but does help some. Patient asking if there is anything else that patient could do for the area since it is causing pain? Sebastien Morales RN * Telephone Encounter - Jennifer Castillo RN - 11/14/2022 11:57 AM EDT Called and left a voicemail for the Patient to call back and ask for a nurse to receive the providers message. Jennifer Castillo RN * Telephone Encounter - Jorge Madden APRN.CNP - 11/14/2022 10:04 AM EDT Please let her know I found the report (it was in care everywhere) it did not show any issues, the area of concern is likely some subcutaneous tissue she is able to feel. Jorge Madden APRN.JOSE Report in care everywhere: [facility] Imaging Services [address] [place] [address] Ext Non Vasc Limited/Soft Tiss MR#: [id number] Acct: [id number] Name: CATHY CAM Rep #: [id number] : 1975 F 47 From: Nick phelps MD PCP: KISHAN Katz Status: REG CLI Study: Ext Non Vasc Limited/Soft Tiss Date of Exam: 0 11/01/22 Exam# [id number] Ordering Dr: Jorge Madden NP [facility]-C STUDY: SUPERFICIAL ULTRASOUND - LEFT AXILLA. REASON FOR EXAM: Female, 47 years old. MASS OF LEFT AXILLA TECHNIQUE: A superficial ultrasound was performed with real-time and static easton-scale imaging. COMPARISON: None. FINDINGS: Imaging of the left axilla was performed. No sonographic abnormality is seen. US/Ext Non Vasc Limited/Soft Tiss IMPRESSION: No sonographic abnormality is seen. Electronically Signed: Nick Ruggiero MD at 15:42 EDT , * Telephone Encounter - Jennifer Amezquita RN - 11/14/2022 9:53 AM EDT Patient reports she had an US done of left armpit a couple weeks ago at [facility]. Asking if pcp has received those results? Please advise patient. documented in this encounterCrystal Clinic Orthopedic Center08-02-2023 Miscellaneous Notes* Telephone Encounter - Atiya Bowman MSW - 10/25/2022 9:46 AM EDT Sw left message for patient to return Sw call to update on housing assistance status with [employer]. * Telephone Encounter - Atiya Bowman MSW - 10/20/2022 2:47 PM EDT Sw spoke with patient and she reports that has a meeting this afternoon with lady from [employer] to talk about further housing support. Brandt notes that she will call patient back next /Sun to see what she found out about housing at [employer]. Patient reports that her other insurance case manager is through [facility]. Patient also notes that she is having trouble with My Chart. Patient notes that when she was in today staff helped her reset her My Chart but she is still having problem with accessing her My Chart. Sw notes that she will send message to [facility] for further assistance with help accessing My Chart. Patient notes that staff can call her and or her mother- patient contact, to see about helping her with My Chart access. Brandt sent note to [employer] to see about assistance with this need. documented in this encounterCrystal Clinic Orthopedic Center07-28-2023 History of Present illness Narrative* Jorge Madden APRN.JSOE - 10/20/2022 9:06 AM EDT Images from the original note were not included. SUBJECTIVE Cathy Cam is a 47 year old female here today for a check up on her medical problems. Chief Complaint Patient presents with: F/U 3 Month HPI Cathy Cam is a 47 year old female established patient who presents today for a 3 month followup. She was last seen 07/19 and we discussed concerns of her history of seizures with a recent normal EEG, low abdominal pain with a CT scan showing thickening of the bladder, myomatous uterus (us showed fibroid) and right pelvic kidney. She is following up with urology, nephrology, relationship assoc. Saw Dr. De Leon for the pelvic kidney, nothing for them to do except monitor. Living situation is unstable right now. [facility], 90 day stay. No income. She has a geriatric case manager. Still going to AA, relapsed a few times with all of this going on. Has been on disability in the past. 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 Sunday has a relationship assoc appointment, might need surgery for this. Maybe also diagnosed with endometriosis.Having heavy menstrual cycles with a lot of pain. Recently had Effexor increased. Sleeping good. Seeing counseling center for mental health. She does have a lump in her left arm pit, has been there a while but lately became sore. No redness, increased warmth or open wound. Her medications were reviewed today and her list is now up to date. Medications Current Outpatient Medications Medication Sig albuterol HFA (PROVENTIL HFA, VENTOLIN HFA) 90 mcg/actuation inhaler Inhale 2 Puffs as instructed every 4 hours as needed. Phenytoin Sodium Extended 200 mg ER capsule Take 1 capsule by mouth once daily. Take 1 capsules in morning and then take the 300 mg capsules at night phenytoin ER 300 mg ER capsule Take 1 capsule by mouth daily at bedtime. Take 200 mg capsule in morning levothyroxine (SYNTHROID) 25 mcg tablet Take 1 tablet by mouth once daily. Cholecalciferol, Vitamin D3, 25 mcg (1,000 unit) cap Take 1 capsule by mouth once daily. venlafaxine ER (EFFEXOR XR) 75 mg 24 hr capsule Take 150 mg by mouth once daily. busPIRone (BUSPAR) 5 mg tablet Take 1 tablet by mouth three times daily as needed. (Patient not taking: Reported on 10/20/2022) atorvastatin (LIPITOR) 20 mg tablet Take by mouth. (Patient not taking: Reported on 06/21/2022) No current facility-administered medications for this visit. ALLERGIES Allergen Reactions Quetiapine Other: See Comments Seizures Aspirin Other: See Comments, Unknown Fish Containing Pro* Unknown, Other: See Comments Pear Hives Shellfish Derived Hives Trazodone Contraindication-Medical Surgical, Other: See Comments triggers my seizures Erythromycin Vomiting Other reaction(s): Nausea And Vomiting Latex Rash, Itching ACTIVE PROBLEM LIST Colitis - 06/21/2022 Obesity, Class III, BMI >= 40 - 05/24/2022 Hypothyroidism - 05/24/2022 Seizure Disorder (Hcc) - 05/24/2022 Major Depression, Recurrent (Hcc) - 08/25/2021 Depressive Disorder - 02/25/2007 Anxiety - 02/25/2007 History of Alcohol Abuse - 02/25/2007 Social History Tobacco Use Smoking status: Every Day Packs/day: 0.50 Years: 18.00 Total pack years: 9.00 Types: Cigarettes Smokeless tobacco: Never Tobacco comments: 'a few per day' Substance Use Topics Alcohol use: Yes Alcohol/week: 7.5 standard drinks of alcohol Types: 3 Cans of Beer (12oz) per week Drug use: No Review of Systems Respiratory: Negative. Cardiovascular: Negative. OBJECTIVE BP 100/84 Pulse 88 Wt 201 lb (91.2kg) SpO2 97% LMP 09/29/2022 Physical Exam Vitals and nursing note reviewed. Constitutional: General: She is awake. She is not in acute distress. Appearance: Normal appearance. She is well-developed and well-groomed. She is not ill-appearing, toxic-appearing or diaphoretic. HENT: Head: Normocephalic. Right Ear: External ear normal. Left Ear: External ear normal. Nose: Nose normal. Eyes: General: Vision grossly intact. Conjunctiva/sclera: Conjunctivae normal. Pupils: Pupils are equal, round, and reactive to light. Neck: Vascular: No JVD. Trachea: Trachea normal. Cardiovascular: Rate and Rhythm: Normal rate and regular rhythm. Pulses: Normal pulses. Heart sounds: Normal heart sounds. No murmur heard. Pulmonary: Effort: Pulmonary effort is normal. No accessory muscle usage, prolonged expiration or respiratory distress. Breath sounds: Normal breath sounds. Musculoskeletal: Cervical back: Neck supple. Skin: General: Skin is warm and dry. Capillary Refill: Capillary refill takes less than 2 seconds. Neurological: General: No focal deficit present. Mental Status: She is alert and oriented to person, place, and time. Mental status is at baseline. Psychiatric: Attention and Perception: Attention and perception normal. Mood and Affect: Mood and affect normal. Speech: Speech normal. Behavior: Behavior normal. Behavior is cooperative. Thought Content: Thought content normal. Cognition and Memory: Cognition and memory normal. Judgment: Judgment normal. ASSESSMENT/PLAN: 1. Pelvic kidney - ICD9: 753.3, ICD10: Q63.2 (primary diagnosis) Monitoring with nephrology. 2. Uterine leiomyoma, unspecified location - ICD9: 218.9, ICD10: D25.9 Working with relationship assoc, may need hysterectomy. 3. Dysmenorrhea - ICD9: 625.3, ICD10: N94.6 See #2 4. Seizure disorder (HCC) - ICD9: 345.90, ICD10: G40.909 Stable, EEG without issues, continue current dose of medication. 5. Mass of left axilla - ICD9: 782.2, ICD10: R22.32 Check ultrasound, feels cyst like. If concerns on ultrasound then plan for mammogram. - US AXILLA ONLY LEFT 6. History of alcohol abuse - ICD9: 305.03, ICD10: F10.11 Had a relapse with recent living situation concerns. Attending AA. 7. Inability to return to living situation - ICD9: V60.9, ICD10: Z59.9 Cannot go back to prior senior care, living [facility], working with her geriatric case manager. Able to stay with family short term but needs assistance for a more permanent solution. 8. Lives in sheltered housing - ICD9: V60.89, ICD10: Z59.01 9. Lack of access to transportation - ICD9: V15.89, ICD10: Z59.82 10. Patient not earning income - ICD9: V60.2, ICD10: Z59.6 11. Encounter for screening involving social determinants of health (SDoH) - ICD9: V82.9, ICD10: Z13.9 I spent a total of 31 minutes on the date of the service which included preparing to see the patient, [id number] patient care, completing clinical documentation, obtaining and/or reviewing separately obtained history, performing a medically appropriate examination, counseling and educating the pat ient/family/caregiver, ordering medications, tests, or procedures, communicating with other HCPs (not separately reported), independently interpreting results (not separately reported), communicatingresults to the patient/family/caregiver, and care coordination (not separately reported). Portions of this note have been entered by ancillary staff. I have reviewed and when necessary edited, so that they are an adequate record of my encounter with this patient Please note that parts of this document were created using voice recognition software and therefore may contain grammatical errors. Patient verbalizes understanding of instructions from today's visit and in agreement with treatmentplan. Questions answered. Agrees to call the office if questions, concerns of issues with acute symptoms not improving or if they worsen. See diagnoses and orders for additional plan(s). Allergies and medications were reviewed, list was updated, and refills given if needed. Past medical, surgical, social, and family history reviewed and updated as appropriate. Encouraged proper diet & exercise as well as compliance with taking medications. Age- appropriate health preventative measures were discussed. Return in about 3 months (around 01/20/2023) for Follow up on chronic conditions and medications.. Jorge Madden APRN-JOSE documented in this encounterCrystal Clinic Orthopedic Center07-03-2023 Miscellaneous Notes* Telephone Encounter - MARCELL Shea - 09/25/2022 2:45 PM EDT TC to patient who is given all of providers messages below. Patient states she was aware of the fibroid and she has a follow up with her relationship assoc 10/23. Nothing further at this time. MARCELL Shea * Telephone Encounter - Jorge Madden APRN.CNP - 09/25/2022 1:57 PM EDT Can also let her know that no seizure activity was present on the EEG. * Telephone Encounter - Carmen Curran MA - 09/25/2022 1:07 PM EDT EEG results printed from [employer] and given to Jorge for review. Carmen Curran MA * Telephone Encounter - Jorge Madden APRN.CNP - 09/25/2022 10:08 AM EDT I have not seen her EEG results yet but do have her ultrasound results. The ultrasound notes a fibroid in her uterus. This may be causing some of her issues. She needs to follow up with relationship assoc. We can discuss more at her upcoming appt. I did place lab orders that she can do before her office visit. * Telephone Encounter - Hilary Somers RN - 09/25/2022 9:35 AM EDT Pt calling and asking provider to advise on recent EEG test completed recently completed at [facility]. Pt has appt with Jorge Madden CNP on 10/20/22 and no labs ordered. Pt asking if provider wishes to order labs prior to this appt? Please advise patient. Hilary Somers RN documented in this encounterCrystal Clinic Orthopedic Center06-19-2023 Miscellaneous Notes* Telephone Encounter - Harleen Dickson RN - 09/11/2022 11:06 AM EDT Last Office Visit: 07/19/2022 Future Office Visit: 10/20/2022 Requested Prescriptions Pending Prescriptions Disp Refills Phenytoin Sodium Extended 200 mg ER capsule 30 capsule 1 Sig: Take 1 capsule by mouth once daily. Take 1 capsules in morning and then take the 300 mg capsules at night phenytoin ER 300 mg ER capsule 30 capsule 2 Sig: Take 1 capsule by mouth daily at bedtime. Take 200 mg capsule in morning Date of Last Labs: 06/21/2022 documented in this encounterCrystal Clinic Orthopedic Center04-26-2023 Miscellaneous Notes* Telephone Encounter - Jorge Madden APRN.CNP - 07/19/2022 3:49 PM EDT New script sent * Telephone Encounter - Dahlia Amezquita LPN - 07/19/2022 3:37 PM EDT Myrna with [facility] calling regarding prescription Nicorette gum. Insurance needs to know what the max is they can have in a day. Pharmacist looked this up and pt can have 1 pc every 2 hours as needed. Please resend rx with the above information if okay. Dahlia Amezquita LPN documented in this encounterCrystal Clinic Orthopedic Center04-12-2023 Miscellaneous Notes* Telephone Encounter - Teri Llanos LPN - 07/05/2022 4:37 PM EDT Consult order and records faxed as requested. * Telephone Encounter - Jorge Madden APRN.JOSE - 07/05/2022 3:42 PM EDT Can we please send referrals for [facility] [place] and for [facility], [facility]. documented in this encounterCrystal Clinic Orthopedic Center2023 History of Present illness Narrative* Gris Spring RT(R) - 07/04/2022 2:20 PM EDT Radiology Service Progress Note DATE OF SERVICE: July 04, 2022 TIME: 2:27 PM PATIENT IDENTITY VERIFICATION COMPLETED USING TWO (2) STANDARD IDENTIFIERS: Name and Date of confirmed by patient verbally. FALL SCREENING: Has the patient had 2 falls in the last year or 1 fall with injury or currently using an Ambulatory Assistive Device (Walker, Cane, Wheelchair, Crutches, etc.)? No PATIENT GENDER DATA: Female. status: : No status: NO. PATIENT RELEVANT IMPLANT DATA REVIEWED: Yes ALLERGIES: Reviewed and unchanged CONTRAST ALLERGY: NO. EXAM: CT -CONTRAST INDUCED NEPHROPATHY RISK FACTORS: Not applicable CREATININE: Creatinine Date Value Ref Range Status 06/21/2022 0.59 0.58 - 0.96 mg/dL Final 05/24/2022 0.55 (L) 0.58 - 0.96 mg/dL Final Estimated Glomerular Filtration Rate Date Value Ref Range Status 06/21/2022 113 >=60 mL/min/1.73m Final Comment: Estimated Glomerular Filtration Rate (eGFR) is calculated using the 2020 CKD-EPI creatinine equation. This equation utilizes serum creatinine, sex, and age as parameters. The creatinine assay has traceable calibration to isotope dilution- mass spectrometry. Refer to KDIGO guidelines for clinical interpretation. In patients with unstable renal function, e.g. those with acute kidney injury, the eGFRmay not accurately reflect actual GFR. P.O.C.T. RESULTS: POC done: Yes, See Lab Tab July 04, 2022 TREATMENT: N/A PERIPHERAL IV DATA: Ambulatory: A peripheral IV was started in the Left antecubital site with a Angio cath: 22 gauge. RADIOLOGY DEPARTMENT: CT; Exam(s) Completed: Abdomen/Pelvis SIGNATURE: RT Melisa(R) PATIENT NAME: Cathy Cam DATE: July 04, 2022 TIME: 2:27 PM documented in this encounterCrystal Clinic Orthopedic Center03-31-2023 Miscellaneous Notes* Telephone Encounter - Teri Llanos LPN - 06/23/2022 11:54 AM EDT Mary aware of same. Will treat it as cervical and if no cervical cells found it will be noted in results. * Telephone Encounter - Jorge Madden APRN.CNP - 06/23/2022 7:21 AM EDT Can we please return call and let them know that cervix was visualized but with having been a difficult pap the swab collected is highly likely to be vaginal cells. * Telephone Encounter - Katia Maldonado LPN - 06/22/2022 11:19 AM EDT Day from [facility]ology calling regarding pap swab that was received. Day states the order does say the source is vaginal but also notes that the cervix was visualized. She is calling to clarify if the swab was indeed vaginal & not cervical? Day is aware pcp is out of the office today & is ok to get response tomorrow 06/23/22. Katia Maldonado LPN documented in this encounterC[facility]03-29-2023 Miscellaneous Notes* Addendum Note - Jorge Madden APRN.JOSE - 06/21/2022 2:56 PM EDTAddended by: JORGE MADDEN on: 06/21/2022 02:56 PM Modules accepted: Orders documented in this encounterCrystal Clinic [facility]03-29-2023 History of Present illness Narrative* Jorge Madden APRN.JOSE - 06/21/2022 8:41 AM EDT CHIEF COMPLAINT: Patient presents with: Physical: with pap and pelvic exam Recheck: 4 week follow up HISTORY: Cathy Cam is a 47 year old female who presents 06/21/2022 for her Yearly Physical Exam. They are here today for a wellness exam. Does wear a seatbelt when riding in a car. Does have smoke detectors and a carbon monoxide detector in the home. Is able to complete ADL's with independence. Still some abdominal discomfort. Referred to [facility] general surgery, has not been seen yet. Lower abdominal/suprapubic area. No abnormal discharge that she knows. Would like STD testing with pelvic/pap today, has had unprotected intercourse and STD status of partner unknown. Some nausea at times but no vomiting. Prior diagnosis of colitis. Last visit dilatin level was low, referred to neuro, Has not been seen yet. Taking medicine daily. No seizure activity that she knows of. Other Providers: Dr. Menendez for mental health [facility] for general surgery Referred to neuro but has not been seen yet Depression Screen Q1: Over the past two weeks, have you felt down, depressed or hopeless? No Q2: Over the past two weeks, have you felt little interest or pleasure in doing things? 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 Are periods regular? Yes Any concerns about her periods? 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 syn. PMH - PAST MEDICAL HISTORY OF seizures PMH - PAST MEDICAL HISTORY OF 1miscarriage and one labor at 6mo. 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 Tobacco use disorder Unspecified asthma(493.90) Family Medical History: FAMILY HISTORY Problem Relation Age of Onset Cancer Maternal Grandfather prostate, his family has cancers Diabetes Maternal Grandmother Hypertension Father Lipids Mother Emphysema Paternal Grandfather Diabetes Paternal Grandfather other (cirrosis of the liver [Other]) Paternal Grandmother Cancer Paternal Grandmother Emphysema Father Social History: Social History Tobacco Use Smoking status: Every Day Packs/day: 0.50 Years: 18.00 Pack years: 9.00 Types: Cigarettes Smokeless tobacco: Never Tobacco comments: 'a few per day' Substance Use Topics Alcohol use: Yes Alcohol/week: 7.5 standard drinks Types: 3 Cans of Beer (12oz) per week Drug use: No Allergies: ALLERGIES Allergen Reactions Quetiapine Other: See Comments Seizures Aspirin Other: See Comments, Unknown Fish Containing Pro* Unknown, Other: See Comments Pear Hives Shellfish Derived Hives Trazodone Contraindication-Medical Surgical, Other: See Comments triggers my seizures Erythromycin Vomiting Other reaction(s): Nausea And Vomiting Latex Rash, Itching Medications: Current Outpatient Medications Medication Sig venlafaxine ER (EFFEXOR XR) 75 mg 24 hr capsule Take 75 mg by mouth once daily. busPIRone (BUSPAR) 5 mg tablet Take 1 tablet by mouth three times daily as needed. levothyroxine (SYNTHROID) 25 mcg tablet Take 25 mcg by mouth. Cholecalciferol, Vitamin D3, 25 mcg (1,000 unit) cap iv contrast (will be provided with radiology test) CT ABD/PEL -Inject, intravenously, once for 1 dose.No IV access, insert saline lock prior to the beginning of sedation, infusion, injection of imaging exam. Discontinue saline lock post exam. If Pt. has a central line or IVAD, may access for administration according to line specific nursing protocol. Once exam is complete flush line and de-accessaccording to line specific nursing protocol in the CT contrast administration guidelines link. phenytoin ER 300 mg ER capsule Take 1 capsule by mouth twice daily. atorvastatin (LIPITOR) 20 mg tablet Take by mouth. (Patient not taking: Reported on 06/21/2022) No current facility-administered medications for this visit. Chronic Problem List: ACTIVE PROBLEM LIST Colitis - 06/21/2022 Obesity, Class III, BMI >= 40 - 05/24/2022 Hypothyroidism - 05/24/2022 Seizure Disorder (Hcc) - 05/24/2022 Major Depression, Recurrent (Hcc) - 08/25/2021 Depressive Disorder - 02/25/2007 Anxiety - 02/25/2007 History of Alcohol Abuse - 02/25/2007 Review of Systems Review of Systems Respiratory: Negative. Cardiovascular: Negative. Gastrointestinal: Positive for abdominal pain and nausea. Negative for abdominal distention, anal bleeding, blood in stool, constipation, diarrhea, rectal pain and vomiting. Genitourinary: Positive for frequency. Negative for genital sores, menstrual problem, pelvic pain, vaginal bleeding, vaginal discharge and vaginal pain. Neurological: Positive for seizures. Negative for dizziness, syncope, weakness, numbness and headaches. OBJECTIVE BP 112/80 Pulse 98 Ht 5' 0 (1.52m) Wt 212 lb (96.2kg) SpO2 98% LMP 06/05/2022 BMI 41.40 kg/(m^2). Physical Exam Vitals and nursing note reviewed. Constitutional: General: She is awake. She is not in acute distress. Appearance: Normal appearance. She is well-developed and well-groomed. She is not ill-appearing, toxic-appearing or diaphoretic. HENT: Head: Normocephalic. Right Ear: External ear normal. Left Ear: External ear normal. Nose: Nose normal. Eyes: General: Vision grossly intact. Conjunctiva/sclera: Conjunctivae normal. Pupils: Pupils are equal, round, and reactive to light. Neck: Vascular: No JVD. Trachea: Trachea normal. Cardiovascular: Rate and Rhythm: Normal rate and regular rhythm. Pulses: Normal pulses. Heart sounds: Normal heart sounds. No murmur heard. Pulmonary: Effort: Pulmonary effort is normal. No accessory muscle usage, prolonged expiration or respiratory distress. Breath sounds: Normal breath sounds. Chest: Chest wall: No mass, lacerations, deformity, swelling, tenderness, crepitus or edema. There is no dullness to percussion. Breasts: Breasts are symmetrical. Right: Normal. Left: Normal. Abdominal: Hernia: There is no hernia in the left inguinal area or right inguinal area. Genitourinary: General: Normal vulva. Exam position: Lithotomy position. Pubic Area: No rash or pubic lice. Labia: Right: No rash, tenderness, lesion or injury. Left: No rash, tenderness, lesion or injury. Urethra: No prolapse, urethral pain, urethral swelling or urethral lesion. Vagina: No signs of injury and foreign body. Vaginal discharge (large amount of clear to white thick discharge) present. No erythema, bleeding, lesions or prolapsed vaginal watters. Cervix: No cervical motion tenderness, friability, erythema, cervical bleeding or eversion. Uterus: Normal. Adnexa: Right adnexa normal and left adnexa normal. Rectum: Normal. Comments: Large amount of discharge and body habitus making this a somewhat difficult pelvic/pap, able to visualize cervix but increased difficulty in getting swab to cervical os. Musculoskeletal: Cervical back: Neck supple. Lymphadenopathy: Upper Body: Right upper body: No supraclavicular, axillary or pectoral adenopathy. Left upper body: No supraclavicular, axillary or pectoral adenopathy. Lower Body: No right inguinal adenopathy. No left inguinal adenopathy. Skin: General: Skin is warm and dry. Capillary Refill: Capillary refill takes less than 2 seconds. Neurological: General: No focal deficit present. Mental Status: She is alert and oriented to person, place, and time. Mental status is at baseline. Psychiatric: Attention and Perception: Attention and perception normal. Mood and Affect: Mood and affect normal. Speech: Speech normal. Behavior: Behavior normal. Behavior is cooperative. Thought Content: Thought content normal. Cognition and Memory: Cognition and memory normal. Judgment: Judgment normal. ASSESSMENT/PLAN: 1. Wellness examination - ICD9: V70.0, ICD10: Z00.00 (primary diagnosis) - Counseled on healthy diet and regular exercise - Calcium intake with supplements or by diet of 1000 mg/day for under 50, 1200- 1500 mg/day for 50+ - Discussed need and benefit for weight loss. BMI 41.40 kg/(m^2) - Pap collected with automatic HPV for ages 30-65 - Smoking cessation encouraged; discussed risks to health and quitting strategies. Patient is not ready to quit - Discussed safe sex practices and avoidance of STIs - PAP TEST 2. Colitis - ICD9: 558.9, ICD10: K52.9 Follow up with general surgery, given her continued pain will check CT scan while waiting to be seen. - CT ABD/PEL W IVCON - IV CONTRAST (RADIOLOGY PROCEDURE) 3. Seizure disorder (HCC) - ICD9: 345.90, ICD10: G40.909 - PHENYTOIN/DILANTIN - PHENYTOIN SODIUM EXTENDED 300 MG CAPSULE 4. Abdominal pain, suprapubic - ICD9: 789.09, ICD10: R10.2 Check pap/STD screening today, check urine dip for signs of infection, check CT scan for any issuesabdomen/pelvis. - UA DIP B/O - CT ABD/PEL W IVCON - IV CONTRAST (RADIOLOGY PROCEDURE) - CHL,GC,TRICH HSV - AILYN / TRICHOMONAS AMPLIFICATION - NUSWAB VAGINITIS PLUS (VG+) W/AILYN 6 SPECIES - BACTERIAL VAGINOSIS AMPLIFICATION 5. Screening for HPV (human papillomavirus) - ICD9: V73.81, ICD10: Z11.51 - HPV MRNA W/REFLEX TO GENOTYPES 16, 18/45 - PAP TEST 6. Lower abdominal pain - ICD9: 789.09, ICD10: R10.30 - CT ABD/PEL W IVCON - CHL,GC,TRICH HSV - ALIYN / TRICHOMONAS AMPLIFICATION - NUSWAB VAGINITIS PLUS (VG+) W/AILYN 6 SPECIES - BACTERIAL VAGINOSIS AMPLIFICATION 7. Screen for STD (sexually transmitted disease) - ICD9: V74.5, ICD10: Z11.3 - CHL,GC,TRICH HSV - AILYN / TRICHOMONAS AMPLIFICATION - NUSWAB VAGINITIS PLUS (VG+) W/AILYN 6 SPECIES - BACTERIAL VAGINOSIS AMPLIFICATION 8. Encounter for therapeutic drug monitoring - ICD9: V58.83, ICD10: Z51.81 - COMP METABOLIC PANEL Wellness exam completed. Health maintenance reviewed and updated. Chronic conditions and medications reviewed and updated as needed. Encouraged regular physical activity as tolerated, Healthy diet, and health promoting lifestyle. Encourage regular eye doctor and dental visits. Portions of this note have been entered by ancillary staff. I have reviewed and when necessary edited, so that they are an adequate record of my encounter with this patient Please note that parts of this document were created using voice recognition software and therefore may contain grammatical errors. Patient verbalizes understanding of instructions from today's visit and in agreement with treatmentplan. Questions answered. Agrees to call the office if questions, concerns or issues with acute symptoms not improving or if they worsen. See diagnoses and orders for additional plan(s). Allergies and medications were reviewed, list was updated, and refills given if needed. Past medical, surgical, social, and family history reviewed and updated as appropriate. Encouraged proper diet & exercise as well as compliance with taking medications. Age- appropriate health preventative measures were discussed. Return in about 4 weeks (around 07/19/2022) for follow up abd pain. Jorge Madden APRN-JOSE documented in this encounterC[facility]03-10-2023 Miscellaneous Notes* Telephone Encounter - Jorge Madden APRN.CNP - 06/02/2022 11:50 AM EST Yes, that is correct, thanks so much Teri!! * Telephone Encounter - Teri Llanos LPN - 06/02/2022 11:16 AM EST Patient states she has been taking phenytoin 100 mg two capsules in am and 3 capsules in pm but shewas confused and questioned if she was to continue with the 100 mg capsules along with the 300 mg capsules. Explain to patient to put the 100mg capsules aside for now and just take the 300 mg 1 in am and 1 in pm. * Telephone Encounter - Jorge Madden APRN.CNP - 06/02/2022 8:02 AM EST Per her records she was on this medication for seizures but at a lower dose, this is why the lab level was checked. Can we please confirm that she was taking this because from her message it sounds like she may not have actually been taking it? * Telephone Encounter - Dahlia Amezquita LPN - 06/01/2022 8:39 AM EST Pt calling to check on taking medications. Pt was prescribed a new medication Phenytoin. Pt asking if she is to continue on all other medications. Please advise pt. Dahlia Amezquita LPN documented in this encounterC[facility]03-07-2023 Miscellaneous Notes* Telephone Encounter - Teri Llanos LPN - 05/30/2022 2:34 PM EST Detailed message left of when next labs are to be repeated. * Telephone Encounter - Jorge Madden APRN.CNP - 05/30/2022 10:28 AM EST Please let her know that I plan to repeat labs with her follow up appointment. * Telephone Encounter - Harleen Dickson RN - 05/30/2022 10:01 AM EST Patient calls and update on medication increased. Patient asking when she needs to have blood levels checked again? Please review and advise, Harleen Dickson RN * Telephone Encounter - Hilary Somers RN - 05/30/2022 8:13 AM EST VM left for mother, Alyson, to call PCP office and ask for a nurse, for update below. Hilary Somers RN * Telephone Encounter - Jorge Madden APRN.CNP - 05/29/2022 2:25 PM EST Please let her know we will increase the dose to 300 mg twice daily (right now taking 200 mg in theam and 300 mg in the pm) new script will be for one of the 300 mg capsules twice a day. * Telephone Encounter - Diana Duke LPN - 05/29/2022 2:19 PM EST Pt notified of results. Pt reports she has been feeling dizzy like when she might get a seizure. Ptreports she hasn't had any big seizures but small ones where she shakes and stares off. Diana Duke LPN * Telephone Encounter - Teri Llanos LPN - 05/29/2022 2:09 PM EST LEFT MESSAGE FOR PATIENT TO CALL OFFICE. * Telephone Encounter - Jorge Madden APRN.CNP - 05/26/2022 4:28 PM EST Please let patient know that labs are back and overall stable, dilantin level is actually low but if no seizure activity on current dose then can continue at that, if recent seizures then would recommend we increase. documented in this encounterC[facility]03-07-2023 Miscellaneous Notes* Telephone Encounter - Pablito Augustin LPN - 05/30/2022 1:29 PM EST Pt calls office requesting orders for mammogram and EEG to be faxed to [facility]. Orders faxed. Pt also requesting referrals for Neurology and Gen Surg to be faxed to [facility] as well, she did not have a specific provider in mind so consults faxed to Dr. Will and Dr. Belinda Valverde. Pablito Augustin LPN documented in this encounterC[facility]03-01-2023 History of Present illness Narrative* Jorge Madden APRN.PLANT OPERATIONS MANAGER - 05/24/2022 2:23 PM EST SUBJECTIVE Cathy Cam is a 47 year old female here today to establish care. Chief Complaint Patient presents with: Establish Care HPI Cathy Cam is a 47 year old female who presents today to establish care. No recent PCP. History of seizures, thyroid, cholesterol, depression. Seeing Dr. Menendez with counseling center. Staying with family. No recent seizure activity that she knows of. In December was hospitalized for mental health issues with [facility]. Doing well since then. She does smoke about a half pack per day. Sober 6 months. Issues with abdominal pain, bloating. No nausea or vomiting. No constipation or diarrhea. No blood in stool or on stool. No black or tarry stool. [facility] diagnosed her with colitis. Her medications were reviewed today and her list is now up to date. Medications Current Outpatient Medications Medication Sig phenytoin ER (DILANTIN) 100 mg ER capsule Take 200 mg by mouth. 2 capsules in morning and 3 capsules at night venlafaxine ER (EFFEXOR XR) 75 mg 24 hr capsule Take 75 mg by mouth once daily. atorvastatin (LIPITOR) 20 mg tablet Take by mouth. levothyroxine (SYNTHROID) 25 mcg tablet Take 25 mcg by mouth. Cholecalciferol, Vitamin D3, 25 mcg (1,000 unit) cap busPIRone (BUSPAR) 5 mg tablet Take 1 tablet by mouth three times daily as needed. No current facility-administered medications for this visit. ALLERGIES Allergen Reactions Quetiapine Other: See Comments Seizures Aspirin Other: See Comments, Unknown Fish Containing Pro* Unknown, Other: See Comments Pear Hives Shellfish Derived Hives Trazodone Contraindication-Medical Surgical, Other: See Comments triggers my seizures Erythromycin Vomiting Other reaction(s): Nausea And Vomiting Latex Rash, Itching ACTIVE PROBLEM LIST Obesity, Class III, BMI >= 40 - 05/24/2022 Hypothyroidism - 05/24/2022 Seizure Disorder (Hcc) - 05/24/2022 Major Depression, Recurrent (Hcc) - 08/25/2021 Depressive Disorder - 02/25/2007 Anxiety - 02/25/2007 History of Alcohol Abuse - 02/25/2007 Social History Tobacco Use Smoking status: Every Day Packs/day: 0.50 Years: 18.00 Pack years: 9.00 Types: Cigarettes Smokeless tobacco: Never Tobacco comments: 'a few per day' Substance Use Topics Alcohol use: Yes Alcohol/week: 7.5 standard drinks Types: 3 Cans of Beer (12oz) per week Drug use: No Review of Systems Respiratory: Negative. Cardiovascular: Negative. Psychiatric/Behavioral: Negative for self-injury and suicidal ideas. OBJECTIVE BP 110/74 Pulse 88 Ht 5' 0 (1.52m) Wt 208 lb (94.3kg) SpO2 98% LMP 05/10/2022 BMI 40.62 kg/(m^2). Physical Exam Vitals and nursing note reviewed. Constitutional: General: She is awake. She is not in acute distress. Appearance: Normal appearance. She is well-developed and well-groomed. She is not ill-appearing, toxic-appearing or diaphoretic. HENT: Head: Normocephalic. Right Ear: External ear normal. Left Ear: External ear normal. Nose: Nose normal. Eyes: General: Vision grossly intact. Conjunctiva/sclera: Conjunctivae normal. Pupils: Pupils are equal, round, and reactive to light. Neck: Vascular: No JVD. Trachea: Trachea normal. Cardiovascular: Rate and Rhythm: Normal rate and regular rhythm. Pulses: Normal pulses. Heart sounds: Normal heart sounds. No murmur heard. Pulmonary: Effort: Pulmonary effort is normal. No accessory muscle usage, prolonged expiration or respiratory distress. Breath sounds: Normal breath sounds. Musculoskeletal: Cervical back: Neck supple. Skin: General: Skin is warm and dry. Capillary Refill: Capillary refill takes less than 2 seconds. Neurological: General: No focal deficit present. Mental Status: She is alert and oriented to person, place, and time. Mental status is at baseline. Psychiatric: Attention and Perception: Attention and perception normal. Mood and Affect: Mood and affect normal. Speech: Speech normal. Behavior: Behavior normal. Behavior is cooperative. Thought Content: Thought content normal. Cognition and Memory: Cognition and memory normal. Judgment: Judgment normal. ASSESSMENT/PLAN: 1. Recurrent major depressive disorder, in partial remission (HCC) - ICD9: 296.35, ICD10: F33.41 (primary diagnosis) Stable on Effexor, continue on current dose, continue with care per counseling center. 2. Anxiety - ICD9: 300.00, ICD10: F41.9 3. History of alcohol abuse - ICD9: 305.03, ICD10: F10.11 4. Seizure disorder (HCC) - ICD9: 345.90, ICD10: G40.909 Get update dilantin level, she would like EEG and neuro. - PHENYTOIN/DILANTIN - CONSULT TO NEUROLOGY - EPIL EEG ROUTINE 5. Hypothyroidism, unspecified type - ICD9: 244.9, ICD10: E03.9 - Instructed patient on importance of taking on an empty stomach either first thing in the morning or at bedtime. - check TSH today - TSH BLD 6. Vitamin D deficiency - ICD9: 268.9, ICD10: E55.9 - VITAMIN D 25 HYDROXY 7. Colitis - ICD9: 558.9, ICD10: K52.9 - CONSULT TO GENERAL SURGERY 8. Obesity, Class III, BMI >= 40 - ICD9: 278.01, ICD10: E66.01 9. Screening for HIV (human immunodeficiency virus) - ICD9: V73.89, ICD10: Z11.4 - HIV 1 2 COMBO(AG/AB),WITH REFLEX TO DIFFERENTIATION 10. Special screening examination for viral disease - ICD9: V73.99, ICD10: Z11.59 - HEP C AB IA W/CONF SCRN 11. Encounter for screening mammogram for breast cancer - ICD9: V76.12, ICD10: Z12.31 - SVETA SCREENING 12. Screening for colon cancer - ICD9: V76.51, ICD10: Z12.11 13. Screening for lipid disorders - ICD9: V77.91, ICD10: Z13.220 - LIPID PANEL BASIC 14. Encounter for therapeutic drug monitoring - ICD9: V58.83, ICD10: Z51.81 - CBC - COMP METABOLIC PANEL Portions of this note have been entered by ancillary staff. I have reviewed and when necessary edited, so that they are an adequate record of my encounter with this patient Please note that parts of this document were created using voice recognition software and therefore may contain grammatical errors. Patient verbalizes understanding of instructions from today's visit and in agreement with treatmentplan. Questions answered. Agrees to call the office if questions, concerns of issues with acute symptoms not improving or if they worsen. See diagnoses and orders for additional plan(s). Allergies and medications were reviewed, list was updated, and refills given if needed. Past medical, surgical, social, and family history reviewed and updated as appropriate. Encouraged proper diet & exercise as well as compliance with taking medications. Age- appropriate health preventative measures were discussed. Return in about 4 weeks (around 06/21/2022) for Wellness physical with pap/pelvic exam. . SANA Katz documented in this encounterCrystal Clinic [facility]02-15-2023 Miscellaneous Notes* Telephone Encounter - Jennifer Castillo RN - 05/10/2022 9:22 AM EST Pt called and is notified of providers results. Pt voices understanding. Pt asked about running a fever. I let her know that she needs to be fever free for 24 hours before going back to work without taking any fever reducing agents. She was worried because she has a history of seizures. I told her she would need to be seen again, Pt reports she would got to the ER. Pt has picked up her antibioticand started taking it. Jennifer Castillo RN * Telephone Encounter - Lauren Neves MA - 05/10/2022 9:02 AM EST VM left instructing patient to return call for results. Lauren Neves MA * Telephone Encounter - Lauren Neves MA - 05/10/2022 9:00 AM EST ----- Message from Boom Quintero MD sent at 05/10/2022 8:06 AM EST ----- COVID and influenza negative. documented in this encounterCrystal Clinic [facility]02-14-2023 History of Present illness Narrative* Freedom Graham APRN.PLANT OPERATIONS MANAGER - 05/09/2022 4:04 PM EST Subjective HPI HPI Cathy Cam is a 47 year old female who presents today for CC of cough, fever, congestion. This started 4-5. Has tried otc medication for relief. Symptoms are worsened by nothing. Risk factors sick exposures at home. Smoker. .Patient presents with: Fever: Pt reported chest congestion, cough x4 days. PAST MEDICAL HISTORY Diagnosis Date Adjustment disorder with depressed mood Anxiety state, unspecified Esophageal reflux Other and unspecified alcohol dependence, unspecified drinking behavior ETOH depend. syn. PMH - PAST MEDICAL HISTORY OF seizures PMH - PAST MEDICAL HISTORY OF 1miscarriage and one labor at 6mo. 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 Tobacco use disorder Unspecified asthma(493.90) PAST SURGICAL HISTORY Procedure Laterality Date UNSPECIFIED ORAL SURGERY PROCEDURE, BY REPORT wisdom teeth removed ALLERGIES Quetiapine, Aspirin, Fish Containing Products, Latex, and Erythromycin MEDICATIONS atorvastatin (LIPITOR) 20 mg tablet Take by mouth. levothyroxine (SYNTHROID) 25 mcg tablet Take 25 mcg by mouth. Cholecalciferol, Vitamin D3, 25 mcg (1,000 unit) cap busPIRone (BUSPAR) 5 mg tablet venlafaxine HCl (EFFEXOR ORAL) Take by mouth. sertraline hcl(ZOLOFT 50 MG TAB) Take onehalf tab daily for 8 days and then one(1) tablet daily. albuterol HFA (PROVENTIL HFA, VENTOLIN HFA) 90 mcg/actuation inhaler EVERY 4 HOURS NEEDED (Patient not taking: Reported on 05/09/2022) amoxicillin-clavulanic acid (AUGMENTIN) 875-125 mg per tablet Take 1 tablet by mouth twice daily for 7 days. FAMILY HISTORY Problem Relation Age of Onset Cancer Maternal Grandfather prostate, his family has cancers Diabetes Maternal Grandmother Hypertension Father Lipids Mother Emphysema Paternal Grandfather Diabetes Paternal Grandfather other (cirrosis of the liver [Other]) Paternal Grandmother Cancer Paternal Grandmother Emphysema Father Social History Tobacco Use Smoking status: Every Day Packs/day: 0.50 Years: 18.00 Pack years: 9.00 Types: Cigarettes Smokeless tobacco: Never Tobacco comments: 'a few per day' Substance Use Topics Alcohol use: Yes Alcohol/week: 7.5 standard drinks Types: 3 Cans of Beer (12oz) per week Drug use: No ROS Objective Blood pressure 136/88, pulse (!) 121, temperature (!) 38.3 C (101 F), temperature source Tympanic, resp. rate 18, weight 96.1 kg (211 lb 12.8 oz), last menstrual period 05/01/2022, SpO2 98 %, unknownif currently . Physical Exam Constitutional: General: She is not in acute distress. Appearance: She is not toxic-appearing or diaphoretic. HENT: Head: Normocephalic and atraumatic. Nose: Nose normal. Mouth/Throat: Pharynx: Uvula midline. No pharyngeal swelling, oropharyngeal exudate, posterior oropharyngeal erythema or uvula swelling. Eyes: General: Lids are normal. No scleral icterus. Right eye: No discharge. Left eye: No discharge. Conjunctiva/sclera: Conjunctivae normal. Pupils: Pupils are equal, round, and reactive to light. Neck: Trachea: Trachea normal. Cardiovascular: Rate and Rhythm: Normal rate and regular rhythm. Heart sounds: Normal heart sounds. Pulmonary: Effort: Pulmonary effort is normal. Breath sounds: Normal breath sounds. Musculoskeletal: Cervical back: Normal range of motion and neck supple. Lymphadenopathy: Cervical: No cervical adenopathy. Right cervical: No superficial cervical adenopathy. Left cervical: No superficial cervical adenopathy. Skin: Findings: No rash. Neurological: Mental Status: She is alert and oriented to person, place, and time. ASSESSMENT/PLAN: 1. Sinobronchitis - ICD9: 473.9, 490, ICD10: J32.9, J40 - Will begin treatment with as per antibiotic as written, see orders - Supportive care with plenty of fluids, rest, and analgesia prn. - Follow up in 3-5 days if symptoms persist or worsen. -If you experience chest pain/shortness of breath go to ER - AMOXICILLIN 875 MG-POTASSIUM CLAVULANATE 125 MG TABLET - COVID WITH FLUA+B, ROUTINE Freedom Graham APRN.PLANT OPERATIONS MANAGER [facility] History of Past illness Narrative* Problem Noted Date Resolved Date Severe major depression, single episode 01/19/20 22 05/24/2022 Personal history of pre-term labor 07/25/2006 05/24/2022 Supervision of other high-risk (V23.89) 07/25/2006 05/24/2022 Unspecified high-risk 07/19/2006 07/25/2006 documented as of this encounter (statuses as of 05/24/2022) [facility] History of Past illness Narrative* Problem Noted Date Resolved Date Severe major depression, single episode 01/19/20 22 05/24/2022 Personal history of pre-term labor 07/25/2006 05/24/2022 Supervision of other high-risk (V23.89) 07/25/2006 05/24/2022 Unspecified high-risk 07/19/2006 07/25/2006 documented as of this encounter (statuses as of 05/30/2022) [facility] of Past illness Narrative* Problem Noted Date Resolved Date Severe major depression, single episode 01/19/20 22 05/24/2022 Personal history of pre-term labor 07/25/2006 05/24/2022 Supervision of other high-risk (V23.89) 07/25/2006 05/24/2022 Unspecified high-risk 07/19/2006 07/25/2006 documented as of this encounter (statuses as of 05/30/2022) [facility] of Past illness Narrative* Problem Noted Date Resolved Date Severe major depression, single episode 01/19/20 22 05/24/2022 Personal history of pre-term labor 07/25/2006 05/24/2022 Supervision of other high-risk (V23.89) 07/25/2006 05/24/2022 Unspecified high-risk 07/19/2006 07/25/2006 documented as of this encounter (statuses as of 06/02/2022) [facility] of Past illness Narrative* Problem Noted Date Resolved Date Severe major depression, single episode 01/19/2005/24/2022 Personal history of pre-term labor 07/25/2006 05/24/2022 Supervision of other high-risk (V23.89) 07/25/2006 05/24/2022 Unspecified high-risk 07/19/2006 07/25/2006 documented as of this encounter (statuses as of 06/21/2022) [address]26-2022 History of Past illness Narrative* Problem Noted Date Resolved Date Severe major depression, single episode 01/19/20 22 05/24/2022 Personal history of pre-term labor 07/25/2006 05/24/2022 Supervision of other high-risk (V23.89) 07/25/2006 05/24/2022 Unspecified high-risk 07/19/2006 07/25/2006 documented as of this encounter (statuses as of 06/23/2022) [facility] of Past illness Narrative* Problem Noted Date Resolved Date Severe major depression, single episode 01/19/2005/24/2022 Personal history of pre-term labor 07/25/2006 05/24/2022 Supervision of other high-risk (V23.89) 07/25/2006 05/24/2022 Unspecified high-risk 07/19/2006 07/25/2006 documented as of this encounter (statuses as of 07/06/2022) [facility] of Past illness Narrative* Problem Noted Date Resolved Date Severe major depression, single episode 01/19/2005/24/2022 Personal history of pre-term labor 07/25/2006 05/24/2022 Supervision of other high-risk (V23.89) 07/25/2006 05/24/2022 Unspecified high-risk 07/19/2006 07/25/2006 documented as of this encounter (statuses as of 07/10/2022) [address]26-2022 History of Past illness Narrative* Problem Noted Date Resolved Date Severe major depression, single episode 01/19/2005/24/2022 Personal history of pre-term labor 07/25/2006 05/24/2022 Supervision of other high-risk (V23.89) 07/25/2006 05/24/2022 Unspecified high-risk 07/19/2006 07/25/2006 documented as of this encounter (statuses as of 07/20/2022) [address]26-2022 History of Past illness Narrative* Problem Noted Date Resolved Date Severe major depression, single episode 01/19/2005/24/2022 Personal history of pre-term labor 07/25/2006 05/24/2022 Supervision of other high-risk (V23.89) 07/25/2006 05/24/2022 Unspecified high-risk 07/19/2006 07/25/2006 documented as of this encounter (statuses as of 07/21/2022) [address]26-2022 History of Past illness Narrative* Problem Noted Date Resolved Date Severe major depression, single episode 01/19/2005/24/2022 Personal history of pre-term labor 07/25/2006 05/24/2022 Supervision of other high-risk (V23.89) 07/25/2006 05/24/2022 Unspecified high-risk 07/19/2006 07/25/2006 documented as of this encounter (statuses as of 09/12/2022) [address]26-2022 History of Past illness Narrative* Problem Noted Date Resolved Date Severe major depression, single episode 01/19/2005/24/2022 Personal history of pre-term labor 07/25/2006 05/24/2022 Supervision of other high-risk (V23.89) 07/25/2006 05/24/2022 Unspecified high-risk 07/19/2006 07/25/2006 documented as of this encounter (statuses as of 09/25/2022) [address]26-2022 History of Past illness Narrative* Problem Noted Date Diagnosed Date Resolved Date Severe major depression, single episode 01/18/2022 05/24/2022 Personal history of pre-term labor 07/25/2006 05/24/2022 Supervision of other high-ri sk (V23.89) 07/25/2006 05/24/2022 Unspecified high-risk 07/19/2006 07/25/2006 documented as of this encounter (statuses as of 10/20/2022) [address]26-2022 History of Past illness Narrative* Problem Noted Date Diagnosed Date Resolved Date Severe major depression, single episode 01/18/2022 05/24/2022 Personal history of pre-term labor 07/25/2006 05/24/2022 Supervision of other high-ri sk (V23.89) 07/25/2006 05/24/2022 Unspecified high-risk 07/19/2006 07/25/2006 documented as of this encounter (statuses as of 10/30/2022) [address]26-2022 History of Past illness Narrative* Problem Noted Date Diagnosed Date Resolved Date Severe major depression, single episode 01/18/2022 05/24/2022 Personal history of pre-term labor 07/25/2006 05/24/2022 Supervision of other high-ri sk (V23.89) 07/25/2006 05/24/2022 Unspecified high-risk 07/19/2006 07/25/2006 documented as of this encounter (statuses as of 11/15/2022) [address]26-2022 History of Past illness Narrative* Problem Noted Date Diagnosed Date Resolved Date Severe major depression, single episode 01/18/2022 05/24/2022 Personal history of pre-term labor 07/25/2006 05/24/2022 Supervision of other high-ri sk (V23.89) 07/25/2006 05/24/2022 Unspecified high-risk 07/19/2006 07/25/2006 documented as of this encounter (statuses as of 12/04/2022) [address]26-2022 History of Past illness Narrative* Problem Noted Date Diagnosed Date Resolved Date Severe major depression, single episode 01/18/2022 05/24/2022 Personal history of pre-term labor 07/25/2006 05/24/2022 Supervision of other high-ri sk (V23.89) 07/25/2006 05/24/2022 Unspecified high-risk 07/19/2006 07/25/2006 documented as of this encounter (statuses as of 12/05/2022) [address]26-2022 History of Past illness Narrative* Problem Noted Date Diagnosed Date Resolved Date Severe major depression, single episode 01/18/2022 05/24/2022 Personal history of pre-term labor 07/25/2006 05/24/2022 Supervision of other high-ri sk (V23.89) 07/25/2006 05/24/2022 Unspecified high-risk 07/19/2006 07/25/2006 documented as of this encounter (statuses as of 12/15/2022) [facility] of Past illness Narrative* Problem Noted Date Diagnosed Date Resolved Date Severe major depression, single episode 01/18/2022 05/24/2022 Personal history of pre-term labor 07/25/2006 05/24/2022 Supervision of other high-ri sk (V23.89) 07/25/2006 05/24/2022 Unspecified high-risk 07/19/2006 07/25/2006 documented as of this encounter (statuses as of 12/26/2022) [address]26-2022 History of Past illness Narrative* Problem Noted Date Diagnosed Date Resolved Date Severe major depression, single episode 01/18/2022 05/24/2022 Personal history of pre-term labor 07/25/2006 05/24/2022 Supervision of other high-ri sk (V23.89) 07/25/2006 05/24/2022 Unspecified high-risk 07/19/2006 07/25/2006 documented as of this encounter (statuses as of 01/04/2023) [address]26-2022 History of Past illness Narrative* Problem Noted Date Diagnosed Date Resolved Date Severe major depression, single episode 01/18/2022 05/24/2022 Personal history of pre-term labor 07/25/2006 05/24/2022 Supervision of other high-ri sk (V23.89) 07/25/2006 05/24/2022 Unspecified high-risk 07/19/2006 07/25/2006 documented as of this encounter (statuses as of 01/17/2023) [address]26-2022 History of Past illness Narrative* Problem Noted Date Diagnosed Date Resolved Date Severe major depression, single episode 01/18/2022 05/24/2022 Personal history of pre-term labor 07/25/2006 05/24/2022 Supervision of other high-ri sk (V23.89) 07/25/2006 05/24/2022 Unspecified high-risk 07/19/2006 07/25/2006 documented as of this encounter (statuses as of 01/19/2023) [address]26-2022 History of Past illness Narrative* Problem Noted Date Diagnosed Date Resolved Date Severe major depression, single episode 01/18/2022 05/24/2022 Personal history of pre-term labor 07/25/2006 05/24/2022 Supervision of other high-ri sk (V23.89) 07/25/2006 05/24/2022 Unspecified high-risk 07/19/2006 07/25/2006 documented as of this encounter (statuses as of 01/28/2023) [address]26-2022 History of Past illness Narrative* Problem Noted Date Diagnosed Date Resolved Date Severe major depression, single episode 01/18/2022 05/24/2022 Personal history of pre-term labor 07/25/2006 05/24/2022 Supervision of other high-ri sk (V23.89) 07/25/2006 05/24/2022 Unspecified high-risk 07/19/2006 07/25/2006 documented as of this encounter (statuses as of 01/28/2023) [address]26-2022 History of Past illness Narrative* Problem Noted Date Diagnosed Date Resolved Date Severe major depression, single episode 01/18/2022 05/24/2022 Personal history of pre-term labor 07/25/2006 05/24/2022 Supervision of other high-ri sk (V23.89) 07/25/2006 05/24/2022 Unspecified high-risk 07/19/2006 07/25/2006 documented as of this encounter (statuses as of 05/04/2023) [address]26-2022 History of Past illness Narrative* Problem Noted Date Diagnosed Date Resolved Date Severe major depression, single episode 01/18/2022 05/24/2022 Personal history of pre-term labor 07/25/2006 05/24/2022 Supervision of other high-ri sk (V23.89) 07/25/2006 05/24/2022 Unspecified high-risk 07/19/2006 07/25/2006 documented as of this encounter (statuses as of 05/09/2023) [place] [address]-26-2022 History of Past illness Narrative* Problem Noted Date Diagnosed Date Resolved Date Severe major depression, single episode 01/18/2022 05/24/2022 Personal history of pre-term labor 07/25/2006 05/24/2022 Supervision of other high-ri sk (V23.89) 07/25/2006 05/24/2022 Unspecified high-risk 07/19/2006 07/25/2006 documented as of this encounter (statuses as of 06/05/2023) [facility] of Past illness Narrative* Problem Noted Date Diagnosed Date Resolved Date Severe major depression, single episode 01/18/2022 05/24/2022 Personal history of pre-term labor 07/25/2006 05/24/2022 Supervision of other high-ri sk (V23.89) 07/25/2006 05/24/2022 Unspecified high-risk 07/19/2006 07/25/2006 documented as of this encounter (statuses as of 07/06/2023) [facility] Consult note Chief complaint suicidal History of present illness 46-year-old female describes a longstanding history of recurrent depression currently in the emergency department voicing suicidal ideation if she were to be released from a hospital setting. Patient states that she was recently discharged from a psychiatric unit in [place] and I need to go back to the psychiatric hospital because I am still depressed and having thoughts of overdosing. Patient describes symptoms including depressed mood, lack of energy, lack of motivation, anhedonia, hopelessness, helplessness and worthlessness. She also states grief over the of her significant other 1 year ago. Patient is cate for safety while in the emergency department. Past psychiatric history this patient states 3 prior psychiatric hospitalizations the most recent being in August of this year. Family history patient denies mental illness in her family Social history this patient states that she is currently single. She is homeless. She has 2 children they both live with my sister. She admits to infrequent alcohol use. She denies illicit drug use Mental status exam at the time of this evaluation, she was alert and oriented in all spheres. Memory was intact in all spheres as well. Mood is described as down. Her affect is dull. She is currently not psychotic. She is endorsing suicidal thoughts with a plan to overdose if she were to be discharged outside of a hospital setting. She denies homicidal thoughts. Judgment and insight are good. Speech is presented in a normal tone as well as normal pace Diagnostic impression depressive disorder. Alcohol abuse, by patient report. Treatment plan #1 continue Lexapro #2 social work service to arrange admission to an inpatient psychiatric setting once medically cleared as patient is not able to contract for safety outside of hospital setting. Digitally Signed by ADAIR IGLESIAS MD on 10/17/2021 11:09 AM [id number] History of Past illness Narrative* Problem Noted Date Resolved Date Unspecified high-risk 07/19/2006 07/25/2006 documented as of this encounter (statuses as of 05/10/2022) [facility] History of Past illness Narrative* Problem Noted Date Resolved Date Unspecified high-risk 07/19/2006 07/25/2006 documented as of this encounter (statuses as of 05/10/2022) [facility] No data available for this section [facility] Evaluation noteNo assessment information available [facility] Work Phone: Evaluation note* Diagnosis Sinobronchitis- Primary Unspecified sinusitis (chronic) documented [facility]* Diagnosis Recurrent major depressive disorder, in partial remission (HCC)- Primary Anxiety Anxiety state, unspecified History of alcohol abuse Nondependent alcohol abuse, in remission Seizure disorder (HCC) Unspecified epilepsy without mention of intractable epilepsy Hypothyroidism, unspecified type Vitamin D deficiency Unspecified vitamin D deficiency Colitis Other and unspecified noninfectious gastroenteritis and colitis Obesity, Class III, BMI >= 40 Morbid obesity Screening for HIV (human immunodeficiency virus) Special screening examination for other specified viral diseases Special screening examination for viral disease Special screening examination for unspecified viral disease Encounter for screening mammogram for breast cancer Screening for colon cancer Special screening for malignant neoplasms, colon Screening for lipid disorders Encounter for therapeutic drug monitoring [facility] Diagnosis Seizure disorder (HCC)- Primary Unspecified epilepsy without mention of intractable epilepsy [facility] Diagnosis Wellness examination- Primary Colitis Other and unspecified noninfectious gastroenteritis and colitis Seizure disorder (HCC) Unspecified epilepsy without mention of intractable epilepsy Abdominal pain, suprapubic Abdominal pain, other specified site Screening for HPV (human papillomavirus) Special screening examination for human papillomavirus (HPV) Lower abdominal pain Abdominal pain, other specified site Screen for STD (sexually transmitted disease) Screening examination for venereal disease Encounter for therapeutic drug monitoring documented in this encounter [facility] note* Diagnosis Uterine leiomyoma, unspecified location- Primary 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 documented in this encounter [facility] note* Diagnosis Dysuria- Primary documented in this encounter [facility] note* Diagnosis Tobacco use disorder documented in this encounter [facility] note* Diagnosis Seizure disorder (HCC) Unspecified epilepsy without mention of intractable epilepsy documented in this encounter [facility] note* Diagnosis Onset Date Resolution Status Abnormal uterine bleeding ac [place] Anxiety acute Depression acute Hyperlipidemia acute Hypothyroidism acute Kidney disease acute Pelvic kidney acute Seizures acute [facility] Work Phone: Evaluation note* Diagnosis Seizure disorder (HCC) Unspecified epilepsy without mention of intractable epilepsy documented [facility] note* Diagnosis Encounter for therapeutic drug monitoring- Primary documented in this encounter [facility] note* Diagnosis 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 Uterine leiomyoma, unspecified location Dysmenorrhea Seizure disorder (HCC) Unspecified epilepsy without mention of intractable epilepsy Mass of left axilla History of alcohol abuse Nondependent alcohol abuse, in remission Inability to return to living situation Lives in sheltered housing Other specified housing or economic circumstances Lack of access to transportation Patient not earning income Inadequate material resources Encounter for screening involving social determinants of health (SDoH) documented in this encounter [facility] note* Diagnosis Onset Date Resolution Status Anxiety acute Depression acute Hyperlipidemia acute Hypothyroidism acute Kidney disease acute Pelvic kidney acute Seizures acute Abnormal uterine bleeding re solved Abnormal uterine bleeding due to adenomyosis acute Pelvic kidney acute [facility] Work Phone: Evaluation note* Diagnosis Onset Date Resolution Status Anxiety acute Depression acute Hyperlipidemia acute Hypothyroidism acute Kidney disease acute Pelvic kidney acute Seizures acute Abnormal uterine bleeding re solved Abnormal uterine bleeding due to adenomyosis acute Pelvic kidney acute Abnormal uterine bleeding due to adenomyosis acute Encounter for IUD insertion noneactive [facility] Work Phone: Evaluation note* Diagnosis Subacute cough- Primary Cough [facility] Diagnosis Seizure disorder (HCC)- Primary Unspecified epilepsy without mention of intractable epilepsy [facility] Diagnosis Chronic obstructive pulmonary disease with acute exacerbation (HCC)- Primary Obstructive chronic bronchitis with exacerbation Subacute cough Cough Tobacco use disorder [facility] Diagnosis Chronic obstructive pulmonary disease with acute exacerbation (HCC)- Primary Obstructive chronic bronchitis with exacerbation [facility] Diagnosis Seizure disorder (HCC) Unspecified epilepsy without mention of intractable epilepsy [facility] Diagnosis Seizure disorder (HCC)- Primary Unspecified epilepsy without mention of intractable epilepsy Chronic obstructive pulmonary disease, unspecified COPD type (HCC) Hypothyroidism, unspecified type Vitamin D deficiency Unspecified vitamin D deficiency IFG (impaired fasting glucose) Impaired fasting glucose Tobacco use disorder Encounter for immunization Need for other specified prophylactic vaccination against single bacterial disease Encounter for therapeutic drug monitoring documented [facility]* Diagnosis Colitis Other and unspecified noninfectious gastroenteritis and colitis Abdominal pain, suprapubic Abdominal pain, other specified site Lower abdominal pain Abdominal pain, other specified site [facility] Diagnosis Alkaline phosphatase elevation- Primary Other nonspecific abnormal serum enzyme levels [facility] Diagnosis Alkaline phosphatase elevation Other nonspecific abnormal serum enzyme levels [facility]* Diagnosis Seizure disorder (HCC)- Primary Unspecified epilepsy without mention of intractable epilepsy Alkaline phosphatase elevation Other nonspecific abnormal serum enzyme levels Fatty liver Other chronic nonalcoholic liver disease Hypothyroidism, unspecified type Vitamin D deficiency Unspecified vitamin D deficiency MAI (obstructive sleep apnea) Obstructive sleep apnea (adult) (pediatric) IFG (impaired fasting glucose) Impaired fasting glucose DUB (dysfunctional uterine bleeding) Other disorder of menstruation and other abnormal bleeding from female genital tract Left arm pain Pain in limb Oral thrush Candidiasis of mouth Encounter for therapeutic drug monitoring [facility] [facility] Diagnosis Seizure disorder (HCC)- Primary Unspecified epilepsy without mention of intractable epilepsy Situational anxiety Other anxiety states [facility] Diagnosis Situational anxiety Other anxiety states [facility] Diagnosis Subacute cough Cough Chronic obstructive pulmonary disease with acute exacerbation (HCC) Obstructive chronic bronchitis with exacerbation [facility] Diagnosis Encounter for therapeutic drug monitoring- Primary Seizure disorder (HCC) Unspecified epilepsy without mention of intractable epilepsy [facility] Diagnosis Seizure disorder (HCC) Unspecified epilepsy without mention of intractable epilepsy [facility] Diagnosis Seizure disorder (HCC)- Primary Unspecified epilepsy without mention of intractable epilepsy [facility] Diagnosis Seizure disorder (HCC) Unspecified epilepsy without mention of intractable epilepsy [facility] Diagnosis Seizure disorder (HCC) Unspecified epilepsy without mention of intractable epilepsy [facility] Diagnosis Seizure disorder (HCC) Unspecified epilepsy without mention of intractable epilepsy [facility] Diagnosis Seizure disorder (HCC)- Primary Unspecified epilepsy without mention of intractable epilepsy [facility] Diagnosis Seizure disorder (HCC)- Primary Unspecified epilepsy without mention of intractable epilepsy Anxiety Anxiety state, unspecified Chronic obstructive pulmonary disease, unspecified COPD type (HCC) Fatty liver Other chronic nonalcoholic liver disease Hypothyroidism, unspecified type Vitamin D deficiency Unspecified vitamin D deficiency IFG (impaired fasting glucose) Impaired fasting glucose Obesity, Class II, BMI 35-39.9 Obesity, unspecified Encounter for screening mammogram for breast cancer Encounter for therapeutic drug monitoring [facility] Diagnosis Screening mammogram for breast cancer- Primary documented [facility] Diagnosis Carpal tunnel syndrome, left upper limb- Primary Left arm pain Pain in limb Paresthesia of skin Disturbance of skin sensation [facility] Diagnosis Seizure disorder (HCC)- Primary Unspecified epilepsy without mention of intractable epilepsy Memory deficit Memory loss Left arm pain Pain in limb Bilateral carpal tunnel syndrome Carpal tunnel syndrome Seasonal allergies Allergic rhinitis, cause unspecified Boil of groin Anxiety Anxiety state, unspecified Tobacco use disorder History of alcohol abuse Nondependent alcohol abuse, in remission Encounter for immunization Need for other specified prophylactic vaccination against single bacterial disease [facility] Diagnosis Chronic left shoulder pain Pain in joint, shoulder region documented [facility] Diagnosis Shoulder impingement- Primary Other affections of shoulder region, not elsewhere classified Left arm pain Pain in limb Bilateral carpal tunnel syndrome Carpal tunnel syndrome Carpal tunnel syndrome of left wrist Carpal tunnel syndrome [facility] Diagnosis Left carpal tunnel syndrome- Primary Carpal tunnel syndrome Left carpal tunnel syndrome Carpal tunnel syndrome [facility] Diagnosis Acute cough- Primary Chronic obstructive pulmonary disease with acute exacerbation (HCC) Obstructive chronic bronchitis with exacerbation Sinobronchitis Unspecified sinusitis (chronic) Seizure disorder (HCC) Unspecified epilepsy without mention of intractable epilepsy [facility] Diagnosis Seizure disorder (HCC) Unspecified epilepsy without mention of intractable epilepsy [facility] Diagnosis Chronic obstructive pulmonary disease with acute exacerbation (HCC)- Primary Obstructive chronic bronchitis with exacerbation Seizure disorder (HCC) Unspecified epilepsy without mention of intractable epilepsy Left arm pain Pain in limb Chronic left shoulder pain Pain in joint, shoulder region Bilateral carpal tunnel syndrome Carpal tunnel syndrome Hypothyroidism, unspecified type Screening for colon cancer Special screening for malignant neoplasms, colon Encounter for therapeutic drug monitoring Anxiety Anxiety state, unspecified History of alcohol abuse Nondependent alcohol abuse, in remission [facility] Diagnosis Seizure disorder (HCC)- Primary Unspecified epilepsy without mention of intractable epilepsy Chronic obstructive pulmonary disease with acute exacerbation (HCC) Obstructive chronic bronchitis with exacerbation Hypothyroidism, unspecified type Anxiety Anxiety state, unspecified Tobacco use disorder MAI (obstructive sleep apnea) Obstructive sleep apnea (adult) (pediatric) Colon cancer screening Special screening for malignant neoplasms, colon Seasonal allergies Allergic rhinitis, cause unspecified Boil of groin [facility] Diagnosis Seizure disorder (HCC) Unspecified epilepsy without mention of intractable epilepsy [facility] Diagnosis Left carpal tunnel syndrome- Primary Carpal tunnel syndrome [facility] Diagnosis Seizure disorder (HCC)- Primary Unspecified epilepsy without mention of intractable epilepsy History of traumatic injury of head History of alcohol abuse Nondependent alcohol abuse, in remission Family history of seizures Family history of other condition Chronic intractable headache, unspecified headache type Claustrophobia Other isolated or specific phobias documented in this encounter [facility] Discharge instructions No data available for this section [facility] Reason for referral (narrative)* Outpatient Procedure (Routine) - Authorized Specialty Diagnoses / Procedures Referred By Contac t Referred To Contact [facility] Diagnoses Seizure disorder (HCC) Procedures EPIL EEG ROUTINE ELECTROENCEPHALOGRAM REC COMA/SLEEP ONLY Jorge Madden APRN.CNP [address] [place], [place] [phone] [facility] [address] [place] [address] Referral ID Status Reason Start Date Expiration Date Visits Requested Visits Authorized [id number] Authorized Auto-Generat ed Referral 05/24/2022 05/25/2023 1 1 * Consult, Test, Treat (Routine) - Pending Review Specialty Diagnoses / Procedures Referred By Contac t Referred To Contact Neurology Diagnoses Seizure disorder (HCC) Procedures CONSULT TO NEUROLOGY OFFICE/OUTPATIENT [facility] 60-74 MINUTES Jorge Madden APRN.CNP [address] [place], [place] [phone] Referral ID Status Reason Start Date Expiration Date Visits Requested Visits Authorized [id number] Pending Review PCP Requested Referral 05/24/2022 05/24/2023 1 1 * Consult, Test, Treat (Routine) - Pending Review Specialty Diagnoses / Procedures Referred By Contac t Referred To Contact General Surgery Diagnoses Colitis Procedures CONSULT TO GENERAL SURGERY OFFICE/OUTPATIENT [facility] 60-74 MINUTES Jorge Madden APRN.CNP [address] [place], [place] [phone] Referral ID Status Reason Start Date Expiration Date Visits Requested Visits Authorized [id number] Pending Review PCP Requested Referral 05/24/2022 05/24/2023 1 1 * Diagnostic Procedure Only (Routine) - Pending Review Specialty Diagnoses / Procedures Referred By Contac t Referred To Contact BR IMAGING Diagnoses Encounter for screening mammogram for breast cancer Procedures SVETA SCREENING SCREENING MAMMOGRAPHY BI 2-VIEW BREAST INC CAD Jorge Madden APRN.PLANT OPERATIONS MANAGER [address] [place] [address] [facility] [address] [place] [address] Referral ID Status Reason Start Date Expiration Date Visits Requested Visits Authorized [id number] Pending Review Auto-Generat ed Referral 05/24/2022 06/23/2023 1 1 [facility] for referral (narrative)* Diagnostic Procedure Only (Routine) - Pending Review Specialty Diagnoses / Procedures Referred By Contac t Referred To Contact BR IMAGING Diagnoses Mass of left axilla Procedures US AXILLA ONLY LEFT US LMTD JOINT/OTH NONVASC XTR STRUX R-T W/IMG Jorge Madden APRN.PLANT OPERATIONS MANAGER [address] [place] [address] [facility] [address] [place] [address] Referral ID Status Reason Start Date Expiration Date Visits Requested Visits Authorized [id number] Pending Review Auto-Generat ed Referral 10/20/2022 11/19/2023 1 1 [facility] for referral (narrative)* Diagnostic Procedure Only (Routine) - Authorized Specialty Diagnoses / Procedures Referred By Contac t Referred To Contact US IMAGING Diagnoses Alkaline phosphatase elevation Procedures US ABD RIGHT UPPER QUADRANT US ABDOMINAL REAL TIME W/IMAGE LIMITED Jorge Madden APRN.PLANT OPERATIONS MANAGER [address] [place], [place] [phone] [facility] Referral ID Status Reason Start Date Expiration Date Visits Requested Visits Authorized [id number] Authorized Auto-Generat ed Referral 05/07/2023 06/05/2024 1 1 [facility] for referral (narrative)* Diagnostic Procedure Only (Routine) - Closed Specialty Diagnoses / Procedures Referred By Contac t Referred To Contact US IMAGING Diagnoses Alkaline phosphatase elevation Procedures US ABD RIGHT UPPER QUADRANT US ABDOMINAL REAL TIME W/IMAGE LIMITED Jorge Madden APRN.PLANT OPERATIONS MANAGER [address] [place] [address] [place] [address] Referral ID Status Reason Start Date Expiration Date V isits Requested Visits Authorized [id number] Closed Auto-Generate d Referral 05/07/2023 06/05/2024 1 1 [facility] for referral (narrative)* Outpatient Procedure (Routine) - Pending Review Specialty Diagnoses / Procedures Referred By Contac t Referred To Contact [facility] Diagnoses Seizure disorder (HCC) Procedures EPIL EEG LEAD PLACEMENT EEG EXTENDED MONITORING 61-119 MINUTES ELECTROENCEPHALOGRAM REC COMA/SLEEP ONLY Liz Meadows APRN.CNP [address] [place] [address] [facility] [address] [place] [address] Referral ID Status Reason Start Date Expiration Date Visits Requested Visits Authorized [id number] Pending Review Auto-Generat ed Referral 09/07/2023 09/06/2024 1 1 [facility] for referral (narrative)* Diagnostic Procedure Only (Routine) - New Request Specialty Diagnoses / Procedures Referred By Contac t Referred To Contact BR IMAGING Diagnoses Screening mammogram for breast cancer Procedures SVETA SCREENING W JOSE SCREENING DIGITAL BREAST TOMOSYNTHESIS BI SCREENING MAMMOGRAPHY BI 2-VIEW BREAST INC CAD Jorge Madden APRN.PLANT OPERATIONS MANAGER [address] [place] [address] [facility] [address] [place] [address] Referral ID Status Reason Start Date Expiration Date Visits Requested Visits Authorized [id number] New Request Auto-Generat ed Referral 10/22/2023 11/20/2024 1 1 [facility] for referral (narrative)* Diagnostic Procedure Only (Routine) - Closed Specialty Diagnoses / Procedures Referred By Contac t Referred To Contact XR IMAGING Diagnoses Chronic left shoulder pain Procedures XR SHOULDER GENERAL 3V OR MORE AP/TRUE AP/OTHER LEFT RADEX SHOULDER COMPLETE MINIMUM 2 VIEWS Jorge Madden APRN.CNP [address] [place] [address] [place] [address] Referral ID Status Reason Start Date Expiration Date V isits Requested Visits Authorized [id number] Closed Auto-Generate d Referral 04/20/2023 05/19/2024 1 1 [facility] ([facility]ative[facility]No reason for referral information [facility]WPro[facility] Work Phone: [employer] for visit Narrative* Diagnostic Procedure Only (Routine) - Closed Specialty Diagnoses / Procedures Referred By Contac t Referred To Contact XR IMAGING Diagnoses Chronic left shoulder pain Procedures XR SHOULDER GENERAL 3V OR MORE AP/TRUE AP/OTHER LEFT RADEX SHOULDER COMPLETE MINIMUM 2 VIEWS Jorge Madden APRN.CNP [address] [place] [address] [place] [address] Referral ID Status Reason Start Date Expiration Date V isits Requested Visits Authorized [id number] Closed Auto-Generate d Referral 04/20/2023 05/19/2024 1 1 [facility] Summary Purpose Family History Relationship Condition Age at Onset Recorded Date/T mario alberto grandmother Malignant neoplasm of lung Unknown Malignant neoplasm of ovary Unknown Diabetes mellitus Unknown grandfather Malignant neoplasm of lung Unknown Malignant neoplasm of prostate Unknown Advance Directives Advance Directive Response Recorded Date/ Time Advance Directives No December 27, 2012 1:08pm Living Will No January 10 10:09am Power of Rag Boiler No January 10, 2022 10:09am Advance Directive Response Recorded Date/ Time Advance Directives No December 27, 2012 1:08pm Living Will No January 16 10:55pm Power of Rag Boiler No January 16, 2022 10:55pm Advance Directive Response Recorded Date/ Time Advance Directives No December 27, 2012 1:08pm Living Will No Shanell 5th, 2023 1 :23pm Power of Rag Boiler No August 28, 2022 1:23pm Advance Directive Response Recorded Date/ Time Advance Directives No December 27, 2012 1:08pm Living Will No September 28, 2022 1 0:47am Power of Rag Boiler No September 28, 2022 10:47am Advance Directive Response Recorded Date/ Time Advance Directives No December 27, 2012 1:08pm Chief Complaint and Reason for Visit Chief Complaint MED Chief Complaint MED etoh abuse, SI Chief Complaint UTERINE FIBROIDS REF BY JORGE MARYANNE MED REFILL Reason for Visit Abnormal uterine ble eding Anxiety Depression Hyperlipidemia Hypothyroidism Kidney disease Pelvic kidney Seizures Chief Complaint UTERINE FIBROIDS REF BY JORGE MARYANNE MED REFILL ABN UTERINE BLEEDING SEIZURE DISORDER COUGH, VAGINAL BLEEDING adenomyosis/fibroid mgmt Reason for Visit Anxiety Depression Hyperlipidemia Hypothyroidism Kidney disease Pelvic kidney Seizures Abnormal uterine bleeding Abnormal uterine bleeding due to adenomyosis Pelvic kidney Chief Complaint UTERINE FIBROIDS REF BY JORGE MARYANNE MED REFILL ABN UTERINE BLEEDING SEIZURE DISORDER COUGH, VAGINAL BLEEDING adenomyosis/fibroid mgmt MASS OF LEFT AXILLA IUD INSERTION/EMB Reason for Visit Anxiety Depression Hyperlipidemia Hypothyroidism Kidney disease Pelvic kidney Seizures Abnormal uterine bleeding Abnormal uterine bleeding due to adenomyosis Pelvic kidney Abnormal uterine bleeding due to adenomyosis Encounter for IUD insertion Chief Complaint UTERINE FIBROIDS REF BY JORGE MARYANNE MED REFILL ABN UTERINE BLEEDING SEIZURE DISORDER COUGH, VAGINAL BLEEDING adenomyosis/fibroid mgmt MASS OF LEFT AXILLA IUD INSERTION/EMB AUB Reason for Visit Anxiety Depression Hyperlipidemia Hypothyroidism Kidney disease Pelvic kidney Seizures Abnormal uterine bleeding Abnormal uterine bleeding due to adenomyosis Pelvic kidney Abnormal uterine bleeding due to adenomyosis Encounter for IUD insertion Chief Complaint Admit Date vaginal odor x 1 month, bleeding and vlad n with IUD July 28, 2024 11:16am Pain - COPY PCP July 29, 2024 7:38am Reason for Visit Admit Date Pelvic pain July 28, 2024 11:16a m IUD check up July 28, 2024 11:16a m Chief Complaint Admit Date vaginal odor x 1 month, bleeding and vlad n with IUD July 28, 2024 11:16am Pain - COPY PCP July 29, 2024 7:38am CONSTIPATION ABDOMINAL ISSUES September 23, 2024 10:22am INT LAB ORDERS September 23, 2024 11:37 am Reason for Visit Admit Date Pelvic pain July 28, 2024 11:16a m IUD check up July 28, 2024 11:16a m Abdominal pain September 23, 2024 10:22 am Alcohol abuse September 23, 2024 10:22 am Reason for Visit Admit Date Pelvic pain July 28, 2024 11:16a m IUD check up July 28, 2024 11:16a m Abdominal pain September 23, 2024 10:22 am Alcohol abuse September 23, 2024 10:22 am Encounter for screening colonoscopy September 23, 2024 10:22am Reason for Referral Specialty Diagnoses / Procedures Referred By Contac t Referred To Contact Diagnoses Acute cough Chronic obstructive pulmonary disease with acute exacerbation (HCC) Jennifer Agarwal APRN.BLACK TOP RAKER [address] [place] [id number] Referral ID Status Reason Start Date Expiration Date Visits Re quested Visits Authorized [id number] Closed 1 1 Specialty Diagnoses / Procedures Referred By Contac t Referred To Contact [facility] Diagnoses Left arm pain Shoulder impingement Procedures CONSULT TO PHYSICAL THERAPY PHYSICAL THERAPY EVALUATION HIGH COMPLEX 45 MINS Tino Nicholson MD [address] [place] [address] [facility] [address] [place] [address] Referral ID Status Reason Start Date Expiration Date Visits Requested Visits Authorized [id number] Pending Review Auto-Generat ed Referral 01/28/2024 01/27/2025 1 1 Specialty Diagnoses / Procedures Referred By Contac t Referred To Contact CT IMAGING Diagnoses Seizure disorder (HCC) Procedures CT BRAIN WO/W IVCON CT HEAD/BRAIN W/O & W/CONTRAST MATERIAL Jorge Madden APRN.PLANT OPERATIONS MANAGER [address] [place] [address] [place] [address] Referral ID Status Reason Start Date Expiration Date Visits Requested Visits Authorized [id number] Pending Review Auto-Generat ed Referral 08/06/2023 09/04/2024 1 1 Specialty Diagnoses / Procedures Referred By Contac t Referred To Contact Neurology Diagnoses Seizure disorder (HCC) Procedures CONSULT TO NEUROLOGY OFFICE/OUTPATIENT NEW HIGH MDM 60 MINUTES Jorge Madden APRN.PLANT OPERATIONS MANAGER [address] [place] [address] Referral ID Status Reason Start Date Expiration Date Visits Requested Visits Authorized [id number] Authorized PCP Requested Referral 07/20/2023 07/19/2024 1 1 Specialty Diagnoses / Procedures Referred By Contac t Referred To Contact [facility] Diagnoses Left arm pain Procedures EMG(NEURO/NI) NERVE CONDUCTION STUDIES 9-10 STUDIES Jorge Madden APRN.PLANT OPERATIONS MANAGER [address] [place] [address] [facility] [address] [place] [address] Referral ID Status Reason Start Date Expiration Date Visits Requested Visits Authorized [id number] Pending Review Auto-Generat ed Referral 07/20/2023 07/19/2024 1 1 Specialty Diagnoses / Procedures Referred By Contac t Referred To Contact Diagnoses Subacute cough Chronic obstructive pulmonary disease with acute exacerbation (HCC) Jorge Madden APRN.PLANT OPERATIONS MANAGER [address] [place] [address] Referral ID Status Reason Start Date Expiration Date Visits Re quested Visits Authorized [id number] Closed 1 1 Specialty Diagnoses / Procedures Referred By Contac t Referred To Contact Gynecology Diagnoses Uterine leiomyoma, unspecified location Procedures CONSULT TO GYNECOLOGY OFFICE/OUTPATIENT [facility] 60-74 MINUTES Jorge Madden APRN.PLANT OPERATIONS MANAGER [address] [place] [address] Referral ID Status Reason Start Date Expiration Date Visits Requested Visits Authorized [id number] Authorized PCP Requested Referral Auto-Generate d Referral 07/05/2022 07/05/2023 1 1 Specialty Diagnoses / Procedures Referred By Contac t Referred To Contact Nephrology Diagnoses Pelvic kidney Procedures CONSULT TO NEPHROLOGY OFFICE/OUTPATIENT COUNTS INCLUDE 234 BEDS AT THE [facility] MDM 60-74 MINUTES Jorge Madden APRN.PLANT OPERATIONS MANAGER [address] [place] [address] Referral ID Status Reason Start Date Expiration Date Visits Requested Visits Authorized [id number] Authorized PCP Requested Referral 07/05/2022 07/05/2023 1 1 Specialty Diagnoses / Procedures Referred By Contac t Referred To Contact CT IMAGING Diagnoses Colitis Abdominal pain, suprapubic Lower abdominal pain Procedures CT ABD/PEL W IVCON CT ABD & PELVIS W/CONTRAST Jorge Madden APRN.PLANT OPERATIONS MANAGER [address] [place] [address] Ct Imaging Referral ID Status Reason Start Date Expiration Date Visits Requested Visits Authorized [id number] Authorized Auto-Generat ed Referral 06/21/2022 07/21/2023 1 1 Health Concerns Infection Onset Date Last Indicated Resolved Time COVID-19 Rule-Out 12/04/2022 12/04/2022 Additional Source Comments INFORMATION SOURCE (unrecogn ized section and content) DATE CREATED AUTHOR 07/19/2021 [facility] DATE CREATED AUTHOR AUTHOR'S ORGANIZ ATION 10/12/2021 [facility] DATE CREATED AUTHOR AUTHOR'S ORGANIZ ATION 10/27/2021 [facility] DATE CREATED AUTHOR AUTHOR'S ORGANIZ ATION 10/28/2021 [facility] ([place] DATE CREATED AUTHOR AUTHOR'S ORGANIZ ATION 01/26/2022 [facility] DATE CREATED AUTHOR AUTHOR'S ORGANIZ ATION 09/23/2024 [facility] DATE CREATED AUTHOR AUTHOR'S ORGANIZ ATION 10/01/2024 [facility] Reason for Visit (unrecogniz ed section and content) Reason Comments Radiology CT Specialty Diagnoses / Procedures Referred By Hosea batres Referred To Contact Radiology / RADIO CT SCAN [facility] Diagnoses CT BRAIN WO/W IVCON Seizure disorder (HCC) [G40.909] Procedures CT WWO MELA B [address] Jorge Madden APRN.PLANT OPERATIONS MANAGER [address] [place] [address] Scan [facility] [address] [place] [address] Referral ID Status Reason Start Date Expiration Date V isits Requested Visits Authorized [id number] Authorized 08/27/2023 10/26/2023 1 1 Reason Comments Other Reason Comments Fever Pt reported chest co ngestion, cough x4 days. Reason Comments Results Reason Comments Establish Care Reason Comments referrals/orders to [facility] Reason Comments Results Nurse Triage Call Reason Comments Medication Question Reason Comments Physical with pap and pelvic exam Recheck 4 week follow up Reason Comments Patient Question Regarding lab test Reason Comments Orders Reason Comments Medication Problem Reason Onset Date Comments Refill Request 09/11/2022 Reason Comments Patient Request Reason Comments F/U 3 Month Reason Comments Social Work Services Reason Comments US left armpit results Reason Comments Cough X months Reason Comments Lab & Test Results Reason Comments URI seen in urgent care on 12/04/2022.Did improve but about 4 days ago started with symptoms againcough with nasal drainage Reason Comments Patient Update Reason Onset Date Comments Refill Request 01/17/2023 Reason Comments Recheck 3 MONTH FOLLOW UP Specialty Diagnoses / Procedures Referred By Hosea batres Referred To Contact CT IMAGING Diagnoses Colitis Abdominal pain, suprapubic Lower abdominal pain Procedures CT ABD/PEL W IVCON CT ABD & PELVIS W/CONTRAST Jorge Madden ARCH CUSHION PRESS OPERATOR.PLANT OPERATIONS MANAGER [address] [place] [id number] Imaging [facility] Referral ID Status Reason Start Date Expiration Date V isits Requested Visits Authorized [id number] Closed Auto-Generate d Referral 06/21/2022 07/21/2023 1 1 Reason Comments Pain Results Labs Reason Comments Results Reason Comments Radiology US Specialty Diagnoses / Procedures Referred By Hosea batres Referred To Contact US IMAGING Diagnoses Alkaline phosphatase elevation Procedures US ABD RIGHT UPPER QUADRANT US ABDOMINAL REAL TIME W/IMAGE LIMITED Jorge Madden ARCH CUSHION PRESS OPERATOR.PLANT OPERATIONS MANAGER [address] [place] [address] [facility] Referral ID Status Reason Start Date Expiration Date V isits Requested Visits Authorized [id number] Closed Auto-Generate d Referral 05/07/2023 06/05/2024 1 1 Reason Onset Date Comments Refill Request 07/05/2023 Reason Comments F/U 3 Month c/o having no energy and sleeping a lotpain continues in left arm Reason Comments Seizures Reason Comments Sleep Problem Significant other st ates patient was foaming out her mouth and patient was incontinent of urine on Sunday night during her sleep. Patient states when she awoke she had a headache. Specialty Diagnoses / Procedures Referred By Hosea batres Referred To Contact CT IMAGING Diagnoses Seizure disorder (HCC) Procedures CT BRAIN WO/W IVCON CT HEAD/BRAIN W/O & W/CONTRAST MATERIAL Jorge Madden APRN.PLANT OPERATIONS MANAGER [address] [place] [address] [place] [address] Referral ID Status Reason Start Date Expiration Date Visits Requested Visits Authorized [id number] Authorized Auto-Generat ed Referral Clearance Not Met - Admin/Chairm an/Director Advise to Postpone/Res chedule or Not Proceed 08/27/2023 10/26/2023 1 1 Reason Comments Orders Reason Comments Patient Update Reason for MRI Not F ully Completed Appointment [facility] Reason Comments Future Appointment [place], [place], Any Reason Onset Date Comments Refill Request 09/07/2023 Reason Comments Recheck Reason Comments Patient Question Reason Onset Date Comments EMG 11/23/2023 Specialty Diagnoses / Procedures Referred By Contac t Referred To Contact [facility] Diagnoses Left arm pain Procedures EMG(NEURO/NI) NERVE CONDUCTION STUDIES 9-10 STUDIES Jorge Madden APRN.PLANT OPERATIONS MANAGER [address] [place] [address] [facility] [address] [place] [address] Referral ID Status Reason Start Date Expiration Date V isits Requested Visits Authorized [id number] Closed Auto-Generate d Referral 03/26/2023 03/25/2024 1 1 Reason Comments EEG Results Reason Onset Date Comments Refill Request 01/11/2024 Reason Comments New Pain Specialty Diagnoses / Procedures Referred By Contac t Referred To Contact Orthopedics Diagnoses Left arm pain Bilateral carpal tunnel syndrome Procedures CONSULT TO ORTHOPAEDICS OFFICE/OUTPATIENT NEW HIGH MDM 60 MINUTES Jorge Madden APRN.PLANT OPERATIONS MANAGER [address] [place] [address] Referral ID Status Reason Start Date Expiration Date V isits Requested Visits Authorized [id number] Closed PCP Requested Referral 11/27/2023 11/26/2024 [address] scan denial from insurance Reason Comments Neurology Consult Reason Comments Schedule Surgery Reason Comments Appointment Reason Comments Cough Reason Comments Cough Reason Comments Surgery Cancelled Reason Comments results Reason Onset Date Comments Refill Request 05/05/2024 Reason Comments F/U 3 Month Reason Comments Recheck Reason Comments Med Change Request Reason Comments US results Reason Comments Post Op Reason Comments Consult Seizure disorder-lig ht sensitivity, bright lights cause dizziness. Has been on dilantin for at least 3 years. Unsure if having seizure activity reports shaking and sensation like she's going to pass out at times. Specialty Diagnoses / Procedures Referred By Contac t Referred To Contact Neurology Diagnoses Seizure disorder (HCC) Procedures CONSULT TO NEUROLOGY OFFICE/OUTPATIENT NEW HIGH MDM 60 MINUTES Jorge Madden APRN.PLANT OPERATIONS MANAGER [address] [place] [address] Phone: tel: fax: Referral ID Status Reason Start Date Expiration Date V isits Requested Visits Authorized [id number] Closed PCP Requested Referral 06/02/2024 06/02/2025 1 1 Care Team (unrecognized sect ion and content) Care Team Personnel Name: PHYSICIAN, NONE Position: Physician Member Role: Primary Care Physician Care Team Related Persons Name: ALYSON RING Goals (unrecognized section and content) Goals may be documented in a n alternate section Source Comments (unrecognize d section and content) In the event this informatio n is protected by the Federal Confidentiality of Alcohol and Drug Abuse Patient Records regulations: The Federal rules restrict any use of the information to criminally investigate or prosecute any alcohol or drug abuse patient.[facility] Center[facility] the event this information is protected by the Federal Confidentiality of Alcohol and Drug Abuse Patient Records regulations: The Federal rules restrict any use of the information to criminally investigate or prosecute any alcohol or drug abuse patient.[facility] CenterIn the event this information is protected by the Federal Confidentiality of Alcohol and Drug Abuse Patient Records regulations: The Federal rules restrict any use of the information to criminally investigate or prosecute any alcohol or drug abuse patient.[facility] CenterIn the event this information is protected by the Federal Confidentiality of Alcohol and Drug Abuse Patient Records regulations: The Federal rules restrict any use of the information to criminally investigate or prosecute any alcohol or drug abuse patient.[facility] CenterIn the event this information is protected by the Federal Confidentiality of Alcohol and Drug Abuse Patient Records regulations: The Federal rules restrict any use of the information to criminally investigate or prosecute any alcohol or drug abuse patient.[facility] CenterIn the event this information is protected by the Federal Confidentiality of Alcohol and Drug Abuse Patient Records regulations: The Federal rules restrict any use of the information to criminally investigate or prosecute any alcohol or drug abuse patient.[facility] CenterIn the event this information is protected by the Federal Confidentiality of Alcohol and Drug Abuse Patient Records regulations: The Federal rules restrict any use of the information to criminally investigate or prosecute any alcohol or drug abuse patient.[facility] CenterIn the event this information is protected by the Federal Confidentiality of Alcohol and Drug Abuse Patient Records regulations: The Federal rules restrict any use of the information to criminally investigate or prosecute any alcohol or drug abuse patient.[facility] CenterIn the event this information is protected by the Federal Confidentiality of Alcohol and Drug Abuse Patient Records regulations: The Federal rules restrict any use of the information to criminally investigate or prosecute any alcohol or drug abuse patient.[facility] CenterIn the event this information is protected by the Federal Confidentiality of Alcohol and Drug Abuse Patient Records regulations: The Federal rules restrict any use of the information to criminally investigate or prosecute any alcohol or drug abuse patient.[facility] CenterIn the event this information is protected by the Federal Confidentiality of Alcohol and Drug Abuse Patient Records regulations: The Federal rules restrict any use of the information to criminally investigate or prosecute any alcohol or drug abuse patient.[facility] CenterIn the event this information is protected by the Federal Confidentiality of Alcohol and Drug Abuse Patient Records regulations: The Federal rules restrict any use of the information to criminally investigate or prosecute any alcohol or drug abuse patient.[facility] CenterIn the event this information is protected by the Federal Confidentiality of Alcohol and Drug Abuse Patient Records regulations: The Federal rules restrict any use of the information to criminally investigate or prosecute any alcohol or drug abuse patient.[facility] CenterIn the event this information is protected by the Federal Confidentiality of Alcohol and Drug Abuse Patient Records regulations: The Federal rules restrict any use of the information to criminally investigate or prosecute any alcohol or drug abuse patient.[facility] CenterIn the event this information is protected by the Federal Confidentiality of Alcohol and Drug Abuse Patient Records regulations: The Federal rules restrict any use of the information to criminally investigate or prosecute any alcohol or drug abuse patient.[facility] CenterIn the event this information is protected by the Federal Confidentiality of Alcohol and Drug Abuse Patient Records regulations: The Federal rules restrict any use of the information to criminally investigate or prosecute any alcohol or drug abuse patient.[facility] CenterIn the event this information is protected by the Federal Confidentiality of Alcohol and Drug Abuse Patient Records regulations: The Federal rules restrict any use of the information to criminally investigate or prosecute any alcohol or drug abuse patient.[facility] CenterIn the event this information is protected by the Federal Confidentiality of Alcohol and Drug Abuse Patient Records regulations: The Federal rules restrict any use of the information to criminally investigate or prosecute any alcohol or drug abuse patient.[facility] CenterIn the event this information is protected by the Federal Confidentiality of Alcohol and Drug Abuse Patient Records regulations: The Federal rules restrict any use of the information to criminally investigate or prosecute any alcohol or drug abuse patient.[facility] CenterIn the event this information is protected by the Federal Confidentiality of Alcohol and Drug Abuse Patient Records regulations: The Federal rules restrict any use of the information to criminally investigate or prosecute any alcohol or drug abuse patient.[facility] CenterIn the event this information is protected by the Federal Confidentiality of Alcohol and Drug Abuse Patient Records regulations: The Federal rules restrict any use of the information to criminally investigate or prosecute any alcohol or drug abuse patient.[facility] CenterIn the event this information is protected by the Federal Confidentiality of Alcohol and Drug Abuse Patient Records regulations: The Federal rules restrict any use of the information to criminally investigate or prosecute any alcohol or drug abuse patient.[facility] CenterIn the event this information is protected by the Federal Confidentiality of Alcohol and Drug Abuse Patient Records regulations: The Federal rules restrict any use of the information to criminally investigate or prosecute any alcohol or drug abuse patient.[facility] CenterIn the event this information is protected by the Federal Confidentiality of Alcohol and Drug Abuse Patient Records regulations: The Federal rules restrict any use of the information to criminally investigate or prosecute any alcohol or drug abuse patient.[facility] CenterIn the event this information is protected by the Federal Confidentiality of Alcohol and Drug Abuse Patient Records regulations: The Federal rules restrict any use of the information to criminally investigate or prosecute any alcohol or drug abuse patient.[facility] CenterIn the event this information is protected by the Federal Confidentiality of Alcohol and Drug Abuse Patient Records regulations: The Federal rules restrict any use of the information to criminally investigate or prosecute any alcohol or drug abuse patient.[facility] CenterIn the event this information is protected by the Federal Confidentiality of Alcohol and Drug Abuse Patient Records regulations: The Federal rules restrict any use of the information to criminally investigate or prosecute any alcohol or drug abuse patient.[facility] CenterIn the event this information is protected by the Federal Confidentiality of Alcohol and Drug Abuse Patient Records regulations: The Federal rules restrict any use of the information to criminally investigate or prosecute any alcohol or drug abuse patient.[facility] CenterIn the event this information is protected by the Federal Confidentiality of Alcohol and Drug Abuse Patient Records regulations: The Federal rules restrict any use of the information to criminally investigate or prosecute any alcohol or drug abuse patient.[facility] CenterIn the event this information is protected by the Federal Confidentiality of Alcohol and Drug Abuse Patient Records regulations: The Federal rules restrict any use of the information to criminally investigate or prosecute any alcohol or drug abuse patient.[facility] CenterIn the event this information is protected by the Federal Confidentiality of Alcohol and Drug Abuse Patient Records regulations: The Federal rules restrict any use of the information to criminally investigate or prosecute any alcohol or drug abuse patient.[facility] CenterIn the event this information is protected by the Federal Confidentiality of Alcohol and Drug Abuse Patient Records regulations: The Federal rules restrict any use of the information to criminally investigate or prosecute any alcohol or drug abuse patient.[facility] CenterIn the event this information is protected by the Federal Confidentiality of Alcohol and Drug Abuse Patient Records regulations: The Federal rules restrict any use of the information to criminally investigate or prosecute any alcohol or drug abuse patient.[facility] CenterIn the event this information is protected by the Federal Confidentiality of Alcohol and Drug Abuse Patient Records regulations: The Federal rules restrict any use of the information to criminally investigate or prosecute any alcohol or drug abuse patient.[facility] CenterIn the event this information is protected by the Federal Confidentiality of Alcohol and Drug Abuse Patient Records regulations: The Federal rules restrict any use of the information to criminally investigate or prosecute any alcohol or drug abuse patient.[facility] CenterIn the event this information is protected by the Federal Confidentiality of Alcohol and Drug Abuse Patient Records regulations: The Federal rules restrict any use of the information to criminally investigate or prosecute any alcohol or drug abuse patient.[facility] CenterIn the event this information is protected by the Federal Confidentiality of Alcohol and Drug Abuse Patient Records regulations: The Federal rules restrict any use of the information to criminally investigate or prosecute any alcohol or drug abuse patient.[facility] CenterIn the event this information is protected by the Federal Confidentiality of Alcohol and Drug Abuse Patient Records regulations: The Federal rules restrict any use of the information to criminally investigate or prosecute any alcohol or drug abuse patient.[facility] CenterIn the event this information is protected by the Federal Confidentiality of Alcohol and Drug Abuse Patient Records regulations: The Federal rules restrict any use of the information to criminally investigate or prosecute any alcohol or drug abuse patient.[facility] CenterIn the event this information is protected by the Federal Confidentiality of Alcohol and Drug Abuse Patient Records regulations: The Federal rules restrict any use of the information to criminally investigate or prosecute any alcohol or drug abuse patient.[facility] CenterIn the event this information is protected by the Federal Confidentiality of Alcohol and Drug Abuse Patient Records regulations: The Federal rules restrict any use of the information to criminally investigate or prosecute any alcohol or drug abuse patient.[facility] CenterIn the event this information is protected by the Federal Confidentiality of Alcohol and Drug Abuse Patient Records regulations: The Federal rules restrict any use of the information to criminally investigate or prosecute any alcohol or drug abuse patient.[facility] CenterIn the event this information is protected by the Federal Confidentiality of Alcohol and Drug Abuse Patient Records regulations: The Federal rules restrict any use of the information to criminally investigate or prosecute any alcohol or drug abuse patient.[facility] CenterIn the event this information is protected by the Federal Confidentiality of Alcohol and Drug Abuse Patient Records regulations: The Federal rules restrict any use of the information to criminally investigate or prosecute any alcohol or drug abuse patient.[facility] CenterIn the event this information is protected by the Federal Confidentiality of Alcohol and Drug Abuse Patient Records regulations: The Federal rules restrict any use of the information to criminally investigate or prosecute any alcohol or drug abuse patient.[facility] CenterIn the event this information is protected by the Federal Confidentiality of Alcohol and Drug Abuse Patient Records regulations: The Federal rules restrict any use of the information to criminally investigate or prosecute any alcohol or drug abuse patient.[facility] CenterIn the event this information is protected by the Federal Confidentiality of Alcohol and Drug Abuse Patient Records regulations: The Federal rules restrict any use of the information to criminally investigate or prosecute any alcohol or drug abuse patient.[facility] CenterIn the event this information is protected by the Federal Confidentiality of Alcohol and Drug Abuse Patient Records regulations: The Federal rules restrict any use of the information to criminally investigate or prosecute any alcohol or drug abuse patient.[facility] CenterIn the event this information is protected by the Federal Confidentiality of Alcohol and Drug Abuse Patient Records regulations: The Federal rules restrict any use of the information to criminally investigate or prosecute any alcohol or drug abuse patient.[facility] CenterIn the event this information is protected by the Federal Confidentiality of Alcohol and Drug Abuse Patient Records regulations: The Federal rules restrict any use of the information to criminally investigate or prosecute any alcohol or drug abuse patient.[facility] CenterIn the event this information is protected by the Federal Confidentiality of Alcohol and Drug Abuse Patient Records regulations: The Federal rules restrict any use of the information to criminally investigate or prosecute any alcohol or drug abuse patient.[facility] CenterIn the event this information is protected by the Federal Confidentiality of Alcohol and Drug Abuse Patient Records regulations: The Federal rules restrict any use of the information to criminally investigate or prosecute any alcohol or drug abuse patient.[facility] CenterIn the event this information is protected by the Federal Confidentiality of Alcohol and Drug Abuse Patient Records regulations: The Federal rules restrict any use of the information to criminally investigate or prosecute any alcohol or drug abuse patient.[facility] CenterIn the event this information is protected by the Federal Confidentiality of Alcohol and Drug Abuse Patient Records regulations: The Federal rules restrict any use of the information to criminally investigate or prosecute any alcohol or drug abuse patient.[facility] CenterIn the event this information is protected by the Federal Confidentiality of Alcohol and Drug Abuse Patient Records regulations: The Federal rules restrict any use of the information to criminally investigate or prosecute any alcohol or drug abuse patient.[facility] CenterIn the event this information is protected by the Federal Confidentiality of Alcohol and Drug Abuse Patient Records regulations: The Federal rules restrict any use of the information to criminally investigate or prosecute any alcohol or drug abuse patient.[facility] CenterIn the event this information is protected by the Federal Confidentiality of Alcohol and Drug Abuse Patient Records regulations: The Federal rules restrict any use of the information to criminally investigate or prosecute any alcohol or drug abuse patient.[facility] CenterIn the event this information is protected by the Federal Confidentiality of Alcohol and Drug Abuse Patient Records regulations: The Federal rules restrict any use of the information to criminally investigate or prosecute any alcohol or drug abuse patient.[facility] CenterIn the event this information is protected by the Federal Confidentiality of Alcohol and Drug Abuse Patient Records regulations: The Federal rules restrict any use of the information to criminally investigate or prosecute any alcohol or drug abuse patient.[facility] CenterIn the event this information is protected by the Federal Confidentiality of Alcohol and Drug Abuse Patient Records regulations: The Federal rules restrict any use of the information to criminally investigate or prosecute any alcohol or drug abuse patient.[facility] CenterIn the event this information is protected by the Federal Confidentiality of Alcohol and Drug Abuse Patient Records regulations: The Federal rules restrict any use of the information to criminally investigate or prosecute any alcohol or drug abuse patient.[facility] CenterIn the event this information is protected by the Federal Confidentiality of Alcohol and Drug Abuse Patient Records regulations: The Federal rules restrict any use of the information to criminally investigate or prosecute any alcohol or drug abuse patient.[facility] CenterIn the event this information is protected by the Federal Confidentiality of Alcohol and Drug Abuse Patient Records regulations: The Federal rules restrict any use of the information to criminally investigate or prosecute any alcohol or drug abuse patient.[facility] CenterIn the event this information is protected by the Federal Confidentiality of Alcohol and Drug Abuse Patient Records regulations: The Federal rules restrict any use of the information to criminally investigate or prosecute any alcohol or drug abuse patient.[facility] CenterIn the event this information is protected by the Federal Confidentiality of Alcohol and Drug Abuse Patient Records regulations: The Federal rules restrict any use of the information to criminally investigate or prosecute any alcohol or drug abuse patient.[facility] CenterIn the event this information is protected by the Federal Confidentiality of Alcohol and Drug Abuse Patient Records regulations: The Federal rules restrict any use of the information to criminally investigate or prosecute any alcohol or drug abuse patient.[facility] CenterIn the event this information is protected by the Federal Confidentiality of Alcohol and Drug Abuse Patient Records regulations: The Federal rules restrict any use of the information to criminally investigate or prosecute any alcohol or drug abuse patient.[facility] CenterIn the event this information is protected by the Federal Confidentiality of Alcohol and Drug Abuse Patient Records regulations: The Federal rules restrict any use of the information to criminally investigate or prosecute any alcohol or drug abuse patient.[facility] CenterIn the event this information is protected by the Federal Confidentiality of Alcohol and Drug Abuse Patient Records regulations: The Federal rules restrict any use of the information to criminally investigate or prosecute any alcohol or drug abuse patient.[facility] CenterIn the event this information is protected by the Federal Confidentiality of Alcohol and Drug Abuse Patient Records regulations: The Federal rules restrict any use of the information to criminally investigate or prosecute any alcohol or drug abuse patient.[facility] CenterIn the event this information is protected by the Federal Confidentiality of Alcohol and Drug Abuse Patient Records regulations: The Federal rules restrict any use of the information to criminally investigate or prosecute any alcohol or drug abuse patient.[facility] Center[facility] the event this information is protected by the Federal Confidentiality of Alcohol and Drug Abuse Patient Records regulations: The Federal rules restrict any use of the information to criminally investigate or prosecute any alcohol or drug abuse patient.[facility] CenterIn the event this information is protected by the Federal Confidentiality of Alcohol and Drug Abuse Patient Records regulations: The Federal rules restrict any use of the information to criminally investigate or prosecute any alcohol or drug abuse patient.[facility] CenterIn the event this information is protected by the Federal Confidentiality of Alcohol and Drug Abuse Patient Records regulations: The Federal rules restrict any use of the information to criminally investigate or prosecute any alcohol or drug abuse patient.[facility] CenterIn the event this information is protected by the Federal Confidentiality of Alcohol and Drug Abuse Patient Records regulations: The Federal rules restrict any use of the information to criminally investigate or prosecute any alcohol or drug abuse patient.[facility] CenterIn the event this information is protected by the Federal Confidentiality of Alcohol and Drug Abuse Patient Records regulations: The Federal rules restrict any use of the information to criminally investigate or prosecute any alcohol or drug abuse patient.[facility] Care Teams (unrecognized sec tion and content) Graphic Art Sales Representative Relationship Specialty Start Date End Date Jorge Madden APRN.PLANT OPERATIONS MANAGER [address] [place] [address] [phone] PCP - General Internal Medicine 05/24/22 Graphic Art Sales Representative Relationship Specialty Start Date End Date Jorge Madden APRN.PLANT OPERATIONS MANAGER [address] [place] [address] 04402 PCP - General Internal Medicine 05/24/22 Graphic Art Sales Representative Relationship Specialty Start Date End Date Jorge Madden APRN.PLANT OPERATIONS MANAGER [address] [place] [address] [phone] PCP - General Internal Medicine 05/24/22 Graphic Art Sales Representative Relationship Specialty Start Date End Date Jorge Madden APRN.PLANT OPERATIONS MANAGER [address] [place] [address] [phone] PCP - General Internal Medicine 05/24/22 Graphic Art Sales Representative Relationship Specialty Start Date End Date Jorge Madden APRN.PLANT OPERATIONS MANAGER [address] [place] [address] [phone] PCP - General Internal Medicine 05/24/22 Graphic Art Sales Representative Relationship Specialty Start Date End Date Jorge Madden APRN.PLANT OPERATIONS MANAGER [address] [place] [address] [phone] PCP - General Internal Medicine 05/24/22 Graphic Art Sales Representative Relationship Specialty Start Date End Date Jorge Madden APRN.PLANT OPERATIONS MANAGER [address] [place] [address] [phone] PCP - General Internal Medicine 05/24/22 Graphic Art Sales Representative Relationship Specialty Start Date End Date Jorge Madden APRN.PLANT OPERATIONS MANAGER [address] [place] [address] [phone] PCP - General Internal Medicine 05/24/22 Graphic Art Sales Representative Relationship Specialty Start Date End Date Jorge Madden APRN.PLANT OPERATIONS MANAGER [address] [place] [address] 80535 PCP - General Internal Medicine 05/24/22 Team Status: Active Member Role Status Dates No Primary Care Physician Family Provider Active oJrge Madden TURNER OFF, TURNER OFF-C Primary Care Provider Active Team Status: Inactive Member Role Status Dates Jorge Madden TURNER OFF, TURNER OFF-C Primary Care Provider, Referring Provider Active Dr. Poonam Brown , DO Attending Provider Activ e Team Status: Inactive Member Role Status Dates Jorge Madden TURNER OFF, TURNER OFF-C Primary Care Provider Active Dr. Mustapha Gonzalez , DO Emergency Provider Active Graphic Art Sales Representative Relationship Specialty Start Date End Date Jorge Madden APRN.PLANT OPERATIONS MANAGER [address] [place] [address] [phone] PCP - General Internal Medicine 05/24/22 Graphic Art Sales Representative Relationship Specialty Start Date End Date Jorge Madden APRN.PLANT OPERATIONS MANAGER [address] [place] [address] 84841 PCP - General Internal Medicine 05/24/22 Graphic Art Sales Representative Relationship Specialty Start Date End Date Jorge Madden APRN.PLANT OPERATIONS MANAGER [address] [place] [address] [phone] PCP - General Internal Medicine 05/24/22 Graphic Art Sales Representative Relationship Specialty Start Date End Date Jorge Madden APRN.PLANT OPERATIONS MANAGER [address] [place] [address] [phone] PCP - General Internal Medicine 05/24/22 Team Status: Inactive Member Role Status Dates Jorge Madden TURNER OFF, TURNER OFF-C Primary Care Provider, Referring Provider Active Dr. Nahomy Soriano MD Attending Provider Active Team Status: Inactive Member Role Status Dates Jorge Madden TURNER OFF, TURNER OFF-C Primary Care Provi anitha, Attending Provider, Referring Provider Active Team Status: Inactive Member Role Status Dates Jorge Comerr TURNER OFF, TURNER OFF-C Primary Care Provider Active Dr. Poonam Brown , Attending Provider, Refe rring Provider Active Team Status: Inactive Member Role Status Dates Jorge Comerr TURNER OFF, TURNER OFF-C Primary Care Provider Active Dr. Mustapha Goznalez , Attending Provider, Emergency P rodarlin Active Team Status: Inactive Member Role Status Dates Jorge Comerr TURNER OFF, TURNER OFF-C Primary Care Provider Active Dr. Tino Brantley MD Attending Provider, Emergency Provider Active Team Status: Inactive Member Role Status Dates Jorge Comerr TURNER OFF, TURNER OFF-C Primary Care Provider Active Dr. Nahomy Soriano MD Attending Provider, Referr ing Provider Active Graphic Art Sales Representative Relationship Specialty Start Date End Date Jorge Madden APRN.PLANT OPERATIONS MANAGER [address] [place] [address] PCP - General Internal Medicine 05/24/22 Graphic Art Sales Representative Relationship Specialty Start Date End Date Jorge Madden APRN.PLANT OPERATIONS MANAGER [address] [place] [address] PCP - General Internal Medicine 05/24/22 Graphic Art Sales Representative Relationship Specialty Start Date End Date Jorge Madden APRN.PLANT OPERATIONS MANAGER [address] [place] [address] PCP - General Internal Medicine 05/24/22 Graphic Art Sales Representative Relationship Specialty Start Date End Date Jorge Madden APRN.PLANT OPERATIONS MANAGER [address] [place] [address] PCP - General Internal Medicine 05/24/22 Graphic Art Sales Representative Relationship Specialty Start Date End Date Jorge Madden APRN.PLANT OPERATIONS MANAGER [address] [place] [address] [phone] PCP - General Internal Medicine 05/24/22 Graphic Art Sales Representative Relationship Specialty Start Date End Date Jorge Madden APRN.PLANT OPERATIONS MANAGER [address] [place] [address] [phone] PCP - General Internal Medicine 05/24/22 Graphic Art Sales Representative Relationship Specialty Start Date End Date Jorge Madden APRN.PLANT OPERATIONS MANAGER [address] [place] [address] [phone] PCP - General Internal Medicine 05/24/22 Graphic Art Sales Representative Relationship Specialty Start Date End Date Jorge Madden APRN.PLANT OPERATIONS MANAGER [address] [place] [address] [phone] PCP - General Internal Medicine 05/24/22 Graphic Art Sales Representative Relationship Specialty Start Date End Date Jorge Madden APRN.PLANT OPERATIONS MANAGER [address] [place] [address] 11272 PCP - General Internal Medicine 05/24/22 Graphic Art Sales Representative Relationship Specialty Start Date End Date Jorge Madden APRN.PLANT OPERATIONS MANAGER [address] [place] [address] [phone] PCP - General Internal Medicine 05/24/22 Graphic Art Sales Representative Relationship Specialty Start Date End Date Jorge Madden APRN.PLANT OPERATIONS MANAGER [address] [place] [address] 48463 PCP - General Internal Medicine 05/24/22 Graphic Art Sales Representative Relationship Specialty Start Date End Date Jorge Madden APRN.PLANT OPERATIONS MANAGER [address] [place] [address] 04772 PCP - General Internal Medicine 05/24/22 Graphic Art Sales Representative Relationship Specialty Start Date End Date Jorge Madden APRN.PLANT OPERATIONS MANAGER [address] [place] [address] [phone] PCP - General Internal Medicine 05/24/22 Graphic Art Sales Representative Relationship Specialty Start Date End Date Jorge Madden APRN.PLANT OPERATIONS MANAGER [address] [place] [address] [phone] PCP - General Internal Medicine 05/24/22 Graphic Art Sales Representative Relationship Specialty Start Date End Date Jorge Madden APRN.PLANT OPERATIONS MANAGER [address] [place] [address] 81074 PCP - General Internal Medicine 05/24/22 Graphic Art Sales Representative Relationship Specialty Start Date End Date Jorge Madden APRN.PLANT OPERATIONS MANAGER [address] [place] [address] [phone] PCP - General Internal Medicine 05/24/22 Graphic Art Sales Representative Relationship Specialty Start Date End Date Jorge Madden APRN.PLANT OPERATIONS MANAGER [address] [place] [address] [phone] PCP - General Internal Medicine 05/24/22 Graphic Art Sales Representative Relationship Specialty Start Date End Date Jorge Madden APRN.PLANT OPERATIONS MANAGER [address] [place] [address] [phone] PCP - General Internal Medicine 05/24/22 Graphic Art Sales Representative Relationship Specialty Start Date End Date Jorge Madden APRN.PLANT OPERATIONS MANAGER [address] [place] [address] [phone] PCP - General Internal Medicine 05/24/22 Graphic Art Sales Representative Relationship Specialty Start Date End Date Jorge Madden APRN.PLANT OPERATIONS MANAGER [address] [place] [address] [phone] PCP - General Internal Medicine 05/24/22 Graphic Art Sales Representative Relationship Specialty Start Date End Date Jorge Madden APRN.PLANT OPERATIONS MANAGER [address] [place] [address], [place] [address] PCP - General Internal Medicine 05/24/22 Graphic Art Sales Representative Relationship Specialty Start Date End Date Jorge Madden APRN.PLANT OPERATIONS MANAGER [address] [place] [address] [phone] PCP - General Internal Medicine 05/24/22 Graphic Art Sales Representative Relationship Specialty Start Date End Date Jorge Madden APRN.PLANT OPERATIONS MANAGER [address] [place] [address] 41241 PCP - General Internal Medicine 05/24/22 Graphic Art Sales Representative Relationship Specialty Start Date End Date Jorge Madden APRN.PLANT OPERATIONS MANAGER [address] [place] [address] [phone] PCP - General Internal Medicine 05/24/22 Graphic Art Sales Representative Relationship Specialty Start Date End Date Jorge Madden APRN.PLANT OPERATIONS MANAGER [address] [place] [address] [phone] PCP - General Internal Medicine 05/24/22 Graphic Art Sales Representative Relationship Specialty Start Date End Date Jorge Madden APRN.PLANT OPERATIONS MANAGER [address] [place] [address] [phone] PCP - General Internal Medicine 05/24/22 Graphic Art Sales Representative Relationship Specialty Start Date End Date Jorge Madden APRN.PLANT OPERATIONS MANAGER [address] [place] [address] 26274 PCP - General Internal Medicine 05/24/22 Graphic Art Sales Representative Relationship Specialty Start Date End Date Jorge Madden APRN.PLANT OPERATIONS MANAGER [address] [place] [address] [phone] PCP - General Internal Medicine 05/24/22 Graphic Art Sales Representative Relationship Specialty Start Date End Date Jorge Madden ARCH CUSHION PRESS OPERATOR.PLANT OPERATIONS MANAGER [address] [place] [address] 89715 PCP - General Internal Medicine 05/24/22 Graphic Art Sales Representative Relationship Specialty Start Date End Date Jorge Madden ARCH CUSHION PRESS OPERATOR.PLANT OPERATIONS MANAGER [address] [place] [address] [phone] PCP - General Internal Medicine 05/24/22 Graphic Art Sales Representative Relationship Specialty Start Date End Date Jorge Madden ARCH CUSHION PRESS OPERATOR.PLANT OPERATIONS MANAGER [address] [place] [address] 28413 PCP - General Internal Medicine 05/24/22 Graphic Art Sales Representative Relationship Specialty Start Date End Date Jorge Madden ARCH CUSHION PRESS OPERATOR.PLANT OPERATIONS MANAGER [address] [place] [address] [phone] PCP - General Internal Medicine 05/24/22 Graphic Art Sales Representative Relationship Specialty Start Date End Date Jorge Madden ARCH CUSHION PRESS OPERATOR.PLANT OPERATIONS MANAGER [address] [place] [address] [phone] PCP - General Internal Medicine 05/24/22 Graphic Art Sales Representative Relationship Specialty Start Date End Date Jorge Madden ARCH CUSHION PRESS OPERATOR.PLANT OPERATIONS MANAGER [address] [place] [address] [phone] PCP - General Internal Medicine 05/24/22 Graphic Art Sales Representative Relationship Specialty Start Date End Date Jorge Madden ARCH CUSHION PRESS OPERATOR.PLANT OPERATIONS MANAGER [address] [place] [address] [phone] PCP - General Internal Medicine 05/24/22 Graphic Art Sales Representative Relationship Specialty Start Date End Date Jorge Madden APRN.PLANT OPERATIONS MANAGER [address] [place] [address] PCP - General Internal Medicine 05/24/22 Graphic Art Sales Representative Relationship Specialty Start Date End Date Jorge Madden APRN.PLANT OPERATIONS MANAGER [address] [facility] [place] [address] PCP - General Internal Medicine 05/24/22 Graphic Art Sales Representative Relationship Specialty Start Date End Date Jorge Madden APRN.PLANT OPERATIONS MANAGER [address] [facility] [place] [address] PCP - General Internal Medicine 05/24/22 Graphic Art Sales Representative Relationship Specialty Start Date End Date Jorge Madden APRN.PLANT OPERATIONS MANAGER [address] [place] [address] PCP - General Internal Medicine 05/24/22 Team Status: Active Member Role Status Dates oJrge Madden TURNER OFF, TURNER OFF-C Primary Care Provider Active Team Status: Inactive Member Role Status Dates Jorge Madden TURNER OFF, TURNER OFF-C Primary Care Provider Active Start: July 28, 2024 End: July 28, 2024 Jorge Madden TURNER OFF, TURNER OFF-C Referring Provider Active Start: July 28, 2024 End: July 28, 2024 Princess Blake TURNER OFF, TURNER OFF-C Attending Provider Active Start: July 28, 2024 End: July 28, 2024 Team Status: Inactive Member Role Status Dates Jorge Madden TURNER OFF, TURNER OFF-C Primary Care Provider Active Start: July 28, 2024 End: July 28, 2024 Princess Blake TURNER OFF, TURNER OFF-C Attending Provider Active Start: July 28, 2024 End: July 28, 2024 Princess Blake TURNER OFF, TURNER OFF-C Referring Provider Active Start: July 28, 2024 End: July 28, 2024 Team Status: Active Member Role Status Dates Jorge Madden TURNER OFF, TURNER OFF-C Primary Care Provider Active Start: July 29, 2024 Princess Blake TURNER OFF, TURNER OFF-C Attending Provider Active Start: July 29, 2024 Princess Blake TURNER OFF, TURNER OFF-C Referring Provider Active Start: July 29, 2024 Graphic Art Sales Representative Relationship Specialty Start Date End Date Jorge Madden APRN.PLANT OPERATIONS MANAGER [address] [place], [place] [address]501 PCP - General Internal Medicine 05/24/22 Team Status: Inactive Member Role Status Dates Jorge Madden TURNER OFF, TURNER OFF-C Primary Care Provider Active Start: July 29, 2024 End: July 29, 2024 Princess Blake TURNER OFF, TURNER OFF-C Attending Provider Active Start: July 29, 2024 End: July 29, 2024 Princess Blake TURNER OFF, TURNER OFF-C Referring Provider Active Start: July 29, 2024 End: July 29, 2024 Graphic Art Sales Representative Relationship Specialty Start Date End Date Jorge Madden APRN.PLANT OPERATIONS MANAGER [address] [place], [place] [id number] PCP - General Internal Medicine 05/24/22 Graphic Art Sales Representative Relationship Specialty Start Date End Date Jorge Madden APRN.PLANT OPERATIONS MANAGER [address] [place], [place] [id number] PCP - General Internal Medicine 05/24/22 Team Status: Active Member Role/Relationship Status Dates Jorge Madden TURNER OFF, TURNER OFF-C Primary Care Provider Active Team Status: Inactive Member Role/Relationship Status Dates Jorge Madden TURNER OFF, TURNER OFF-C Primary Care Provider Active Start: July 28, 2024 End: July 28, 2024 Jorge Madden TURNER OFF, TURNER OFF-C Referring Provider Active Start: July 28, 2024 End: July 28, 2024 Princess Blake TURNER OFF, TURNER OFF-C Attending Provider Active Start: July 28, 2024 End: July 28, 2024 Team Status: Inactive Member Role/Relationship Status Dates Jorge Madden TURNER OFF, TURNER OFF-C Primary Care Provider Active Start: July 28, 2024 End: July 28, 2024 Princess Blake TURNER OFF, TURNER OFF-C Attending Provider Active Start: July 28, 2024 End: July 28, 2024 Princess Blake TURNER OFF, TURNER OFF-C Referring Provider Active Start: July 28, 2024 End: July 28, 2024 Team Status: Inactive Member Role/Relationship Status Dates Jorge Madden TURNER OFF, TURNER OFF-C Primary Care Provider Active Start: July 29, 2024 End: July 29, 2024 Princess Blake TURNER OFF, TURNER OFF-C Attending Provider Active Start: July 29, 2024 End: July 29, 2024 Princess Blake TURNER OFF, TURNER OFF-C Referring Provider Active Start: July 29, 2024 End: July 29, 2024 Team Status: Inactive Member Role/Relationship Status Dates Jorge Madden TURNER OFF, TURNER OFF-C Primary Care Provider Active Start: September 23, 2024 End: September 23, 2024 Jorge Madden TURNER OFF, TURNER OFF-C Referring Provider Active Start: September 23, 2024 End: September 23, 2024 Dr. Aly Carlos DO Attending Provider Active Start: September 23, 2024 End: September 23, 2024 Team Status: Active Member Role/Relationship Status Dates Jorge Madden TURNER OFF, TURNER OFF-C Primary Care Provider Active Start: September 23, 2024 Dr. Aly Carlos DO Attending Provider Active Start: September 23, 2024 Dr. Aly Carlos DO Referring Provider Active Start: September 23, 2024 Team Status: Inactive Member Role/Relationship Status Dates Jorge Madedn TURNER OFF, TURNER OFF-C Primary Care Provider Active Start: September 23, 2024 End: September 23, 2024 Dr. Aly Carlos DO Attending Provider Active Start: September 23, 2024 End: September 23, 2024 Dr. Aly Carlos DO Referring Provider Active Start: September 23, 2024 End: September 23, 2024 Graphic Art Sales Representative Relationship Specialty Start Date End Date Jorge Madden APRN.PLANT OPERATIONS MANAGER [address] [place] [address] PCP - General Internal Medicine 05/24/22 FOR RECORDS PERTAINING TO PATIENTS WHO ARE OR HAVE BEEN ENROLLED IN A CHEMICAL DEPENDENCY/SUBSTANCEABUSE PROGRAM, SOME INFORMATION MAY BE OMITTED. This clinical summary was aggregated from multiple sources. Caution should be exercised in using it in the provision of clinical care. This summary normalizes information from multiple sources, and as a consequence, information in this document may materially change the coding, format and clinical context of patient data. In addition, data may be omitted in some cases. CLINICAL DECISIONS SHOULD BE BASED ON THE PRIMARY CLINICAL RECORDS. [facility] [employer] [facility]. provides no warranty or guarantee of the accuracy or completeness of information in this document.
--- OUTSIDE RECORDS SUMMARY | 2024-10-07 07:09 | XMS RPT_ITS | CCD ---
Author Organization [facility]ini[facility]ks Care Team Providers Care Travelers' Aid Worker Name Role Phone NO, PHYSICIAN Primary Care [...] Unavailable Primary Care Provider Unavailabl e Maryanne CITY COMPTROLLER.RUBY RAILS DEVELOPER, Jorge Primary Care Provider Maryanne HSE SPECIALIST, HSE SPECIALIST-C Jorge Primary Care Provider Maryanne HSE SPECIALIST, HSE SPECIALIST-C Jorge Referring Provider Dr. Poonam Brown Attending Provider Maryanne HSE SPECIALIST, HSE SPECIALIST-C Jorge Primary Care Provider Unav ailable Maryanne HSE SPECIALIST, HSE SPECIALIST-C Jorge Referring Provider Unavail able Dr. Nahomy Soriano Attending Provider Maryanne CITY COMPTROLLER.RUBY RAILS DEVELOPER, Jorge Primary Care Provider Maryanne CITY COMPTROLLER.RUBY RAILS DEVELOPER, Jorge Primary Care Provider Maryanne HSE SPECIALIST-C, Jorge Primary Care Provider Maryanne HSE SPECIALIST-C, Jorge Referring Provider Lou HSE SPECIALIST-C, Princess Attending Provider Lou HSE SPECIALIST-C, Princess Referring Provider Dr. Aly Carlos DO [...] Unavailable MARYANNE, JORGE Primary Care Unavailable Maryanne HSE SPECIALIST, Jorge Primary Care Unavailable Friend, Aly Attending Unavailable Friend, Aly Referring Unavailable Maryanne HSE SPECIALIST, Jorge Referring Unavailable Maryanne HSE SPECIALIST, Jorge Primary Care Unavailable Maryanne HSE SPECIALIST, Jorge Attending Unavailable Maryanne HSE SPECIALIST, Jorge Referring Unavailable Lou HSE SPECIALIST, Princess Attending Unavailable Maryanne HSE SPECIALIST, Jorge Primary Care Unavailable Maryanne HSE SPECIALIST, Jorge Referring Unavailable Maryanne HSE SPECIALIST, Jorge Primary Care Unavailable Friend, Aly Attending Unavailable Maryanne HSE SPECIALIST, Jorge Referring Unavailable Maryanne HSE SPECIALIST, Jorge Primary Care Unavailable Maryanne HSE SPECIALIST, Jorge Attending Unavailable Lou HSE SPECIALIST, Princess Attending Unavailable [place] HSE SPECIALIST, Princess Referring Unavailable Maryanne HSE SPECIALIST, Jorge Primary Care Unavailable Lou HSE SPECIALIST, Princess Attending Unavailable [place] HSE SPECIALIST, Princess Referring Unavailable Maryanne HSE SPECIALIST, Jorge Primary Care Unavailable Maryanne HSE SPECIALIST, Jorge Primary Care Unavailable Friend, Aly Attending Unavailable Friend, Aly Referring Unavailable Allergies Allergy Classification Reported Allergen(s) Allergy Type Date of Onset Reaction(s) Facility Aspirin (1 source) Aspirin Drug Allergy 2 Other: See Comments, Unknown [facility] Latex (1 source) Latex Substance Allergy 7 Rash, Itching [facility] Macrolides (antibiotic) (1 source) Erythromycin Drug Allergy 7 Vomiting [facility] Pear Preparation (1 source) Pear Preparation Drug Allergy 7 [facility] QUEtiapine (1 source) QUEtiapine Drug Allergy 2 Other: See Comments [facility] Serotonin Reuptake Inhibitors (SSRIs) (1 source) traZODone Drug Allergy 2 Contraindicatio n-Medical Surgical, Other: See Comments [facility] Shellfish (1 source) Shellfish Food Allergy 2 [facility] (20 sources) Aspirin; Translations: [ASPIRIN] Drug Allergy 2 Other (See Comments), Other: See Comments, Unknown [facility] Repository (20 sources) traZODone; Translations: [TRAZODONE] Drug Allergy 2 Other (See Comments), Contraindicatio n-Medical Surgical, Other: See Comments [facility] Repository Comment on above: triggers my seizure s (20 sources) FISH CONTAINING PRODUCTS; Translations: [FISH CONTAINING PRODUCTS] Propensity to adverse reactions to drug (disorder) 2 Unknown, Other: See Comments [facility] Repository (20 sources) Erythromycin; Translations: [ERYTHROMYCIN] Drug [...] Pear Preparation; Translations: [PEAR] Drug Allergy 7 [facility] Work Phone: (10 sources) Penicillins Allergy to substance 2 [facility] (20 sources) Shellfish; Translations: [SHELLFISH DERIVED] Allergy to substance 2 [facility] Work Phone: (20 sources) QUEtiapine; Translations: [QUETIAPINE] Drug Allergy 2 Other: See Comments [facility] Repository (1 source) Erythromycin Drug Allergy 5 [facility] Repository (1 source) Latex Drug allergy (disorder) 5 [facility] Repository (1 source) Pear Preparation Drug Allergy 5 [facility] Repository (1 source) Penicillins Drug allergy (disorder) 5 [facility] Repository Medications Current Medications Medication Drug Class(es) Dates Sig (Normalized) Sig (Original) [id number] 200 actuat albuterol 0.09 mg/actuat metered dose [...] on above: Take 1 capsule by [facility] once daily. diazePAM 10 mg oral tablet [...] Ordered Start: 09-02-2021 take 1 tablet by [facility] once daily escitalopram (LEXAPRO) 10 MG [...] on above: Take 2 tablets by mo [facility] two times a day for 14 days. [...] CT contrast administration guidelines link. lactobacillus acidophilus [id number] unt / pectin 100 mg oral capsule [...] Comment on above: Take 2 tablets by [facility] once daily for 1 day, THEN 1 [...] Comment on above: Take 1 tablet by [facility] three times daily as needed. cetirizine [...] 1 Each by mouth as needed. nystatin 060092 unt/ml oral suspension (17 sources) Polyene Antifungal Start: 07-20-2023 End: 10-19-2023 nystatin (MYCOSTATIN) 100,000 unit/mL suspension Indications: Oral thrush Take 5 mL by mouth four times daily. 1tsp swish in mouth for several minutes, then swallow (or expectorate) 4 times daily until gone. 200 mL 0 07/20/2023 10/19/2023 Discontinued Start: 09-02-2021 End: 09-02-2022 nystatin (MYCOSTATIN) [id number] UNIT/GM powder Apply topically 2 times daily 0 09/02/2021 09/02/2022 Active [id number]-Qfvs-Ejhfx Ac id ( 19 Chewable Tablet) 1 EACH Tab.Chew (10 sources) Start: 12-25-2012 End: 01-28-2013 El379-Fpsh-Mtnpu Ac id ( 19 Chewable Tablet) 1 EACH Tab.Chew Discontinued 1 NMA PO DAILY December 25, 2012 12:00am January 28, 2013 8:36pm Start: 12-25-2012 End: 01-28-2013 take 1 capsule by mouth once daily Dg378-Mian-Qphyt Acid ( 19 Chewable Tablet) 1 EACH [...] Test Name Value Interpretation Reference Range Facility [facility] ANTI-DNA (DS)AB 1 IU/mL Normal 0-9 [facility] Comment on above: Result Comment: Nega tive <5 Equivocal 5 - 9 Positive >9 Performed By: #### L 500.4050, L3100.5440, L300.3900, L503.6150, L501.6710, L3300.1200, L3100.3425, L3200.1100, L501.9520, L5500.0410, L3000.0375, L3410.2400, L3400.8000, L504.2610, L100.0100, L501.9985, L101.9900 #### [facility] [address] [place], [address] ANTI-SS-A < 0.2 Normal 0.0-0.9 [facility] Comment on above: Performed By: #### L 500.4050, L3100.5440, L300.3900, L503.6150, L501.6710, L3300.1200, L3100.3425, L3200.1100, L501.9520, L5500.0410, L3000.0375, L3410.2400, L3400.8000, L504.2610, L100.0100, L501.9985, L101.9900 #### [facility] [address] [place], [address] ANTI-SS-B < 0.2 Normal 0.0-0.9 [facility] Comment on above: Performed By: #### L 500.4050, L3100.5440, L300.3900, L503.6150, L501.6710, L3300.1200, L3100.3425, L3200.1100, L501.9520, L5500.0410, L3000.0375, L3410.2400, L3400.8000, L504.2610, L100.0100, L501.9985, L101.9900 #### [facility] [address] [place], [address] ANCAon 09-28-2024 Atypical pANCA <1:20 Normal Neg:<1:20 [facility] Comment on above: Result Comment: The atypical pANCA pattern has been observed in a significant percentage of patients with ulcerative colitis, primary sclerosing cholangitis and autoimmune hepatitis. Performed at: - [facility] [address] [place] [id number] Manager Mba: Wilfrid Mancia PhD, Phone: [phone] Performed at: - [facility] [id number] Manager Mba: Blaise Mcgraw MD, Phone: [phone] Performed By: #### L 500.4050, L3100.5440, L300.3900, L503.6150, L501.6710, L3300.1200, L3100.3425, L3200.1100, L501.9520, L5500.0410, L3000.0375, L3410.2400, L3400.8000, L504.2610, L100.0100, L501.9985, L101.9900 #### [facility] [address] [place], [address] Cytoplasmic Ab <1:20 Normal Neg:<1:20 [facility] Comment on above: Performed By: #### L 500.4050, L3100.5440, L300.3900, L503.6150, L501.6710, L3300.1200, L3100.3425, L3200.1100, L501.9520, L5500.0410, L3000.0375, L3410.2400, L3400.8000, L504.2610, L100.0100, L501.9985, L101.9900 #### [facility] [address] [place], [address] Perinuclear Ab. 1:80 Abnormal Neg:<1:20 [facility] Comment on above: Result Comment: The presence of positive fluorescence exhibiting P-ANCA or C-ANCA patterns alone is not specific for the diagnosis of Santa's Granulomatosis (WG) or microscopic polyangiitis. Decisions about treatment should not be based solely on ANCA IFA results. The International ANCA Group Consensus recommends follow up testing of positive sera with both FL- 3 and MPO-ANCA enzyme immunoassays. As many as 5% serum samples are positive only by EIA. Ref. AM J Clin Pathol 1999;111:507-513. Performed By: #### L 500.4050, L3100.5440, L300.3900, L503.6150, L501.6710, L3300.1200, L3100.3425, L3200.1100, L501.9520, L5500.0410, L3000.0375, L3410.2400, L3400.8000, L504.2610, L100.0100, L501.9985, L101.9900 #### [facility] [address] [place], [place], [id number] Allergen, Food Profileon CLAM <0.10 Normal Class 0 [facility] Comment on above: Performed By: #### L 500.4050, L3100.5440, L300.3900, L503.6150, L501.6710, L3300.1200, L3100.3425, L3200.1100, L501.9520, L5500.0410, L3000.0375, L3410.2400, L3400.8000, L504.2610, L100.0100, L501.9985, L101.9900 #### [facility] [address] [place], [place], [id number] CODFISH <0.10 Normal Class 0 [facility] Comment on above: Performed By: #### L 500.4050, L3100.5440, L300.3900, L503.6150, L501.6710, L3300.1200, L3100.3425, L3200.1100, L501.9520, L5500.0410, L3000.0375, L3410.2400, L3400.8000, L504.2610, L100.0100, L501.9985, L101.9900 #### [facility] [address] [place], [address] COMMENT Comment Normal . [facility] Comment on above: Result Comment: Christian mann [...] L3410.2400, L3400.8000, L504.2610, L100.0100, L501.9985, L101.9900 #### [facility] [address] [place], [place], [id number] CORN <0.10 Normal Class 0 [facility] Comment on above: Performed By: #### L 500.4050, L3100.5440, L300.3900, L503.6150, L501.6710, L3300.1200, L3100.3425, L3200.1100, L501.9520, L5500.0410, L3000.0375, L3410.2400, L3400.8000, L504.2610, L100.0100, L501.9985, L101.9900 #### [facility] [address] [place], [place], [id number] EGG, WHITE <0.10 Normal Class 0 [facility] Comment on above: Performed By: #### L 500.4050, L3100.5440, L300.3900, L503.6150, L501.6710, L3300.1200, L3100.3425, L3200.1100, L501.9520, L5500.0410, L3000.0375, L3410.2400, L3400.8000, L504.2610, L100.0100, L501.9985, L101.9900 #### [facility] [address] [place], [place], [id number] MILK (COW) <0.10 Normal Class 0 [facility] Comment on above: Performed By: #### L 500.4050, L3100.5440, L300.3900, L503.6150, L501.6710, L3300.1200, L3100.3425, L3200.1100, L501.9520, L5500.0410, L3000.0375, L3410.2400, L3400.8000, L504.2610, L100.0100, L501.9985, L101.9900 #### [facility] [address] [place], [address] PEANUT <0.10 Normal Class 0 [facility] Comment on above: Performed By: #### L 500.4050, L3100.5440, L300.3900, L503.6150, L501.6710, L3300.1200, L3100.3425, L3200.1100, L501.9520, L5500.0410, L3000.0375, L3410.2400, L3400.8000, L504.2610, L100.0100, L501.9985, L101.9900 #### [facility] [address] [place], [address] SCALLOP <0.10 Normal Class 0 [facility] Comment on above: Performed By: #### L 500.4050, L3100.5440, L300.3900, L503.6150, L501.6710, L3300.1200, L3100.3425, L3200.1100, L501.9520, L5500.0410, L3000.0375, L3410.2400, L3400.8000, L504.2610, L100.0100, L501.9985, L101.9900 #### [facility] [address] [place], [place], [id number] SESAME SEED <0.10 Normal Class 0 [facility] Comment on above: Result Comment: Perf ormed at: [address] [id number] Manager Mba: Wilfrid Mancia PhD, Phone: [phone] Performed at: [facility] [address] [id number] Manager Mba: Blaise Mcgraw MD, Phone: [phone] Performed By: #### L 500.4050, L3100.5440, L300.3900, L503.6150, L501.6710, L3300.1200, L3100.3425, L3200.1100, L501.9520, L5500.0410, L3000.0375, L3410.2400, L3400.8000, L504.2610, L100.0100, L501.9985, L101.9900 #### [facility] [address] [place], [place], [id number] SHRIMP <0.10 Normal Class 0 [facility] Comment on above: Performed By: #### L 500.4050, L3100.5440, L300.3900, L503.6150, L501.6710, L3300.1200, L3100.3425, L3200.1100, L501.9520, L5500.0410, L3000.0375, L3410.2400, L3400.8000, L504.2610, L100.0100, L501.9985, L101.9900 #### [facility] [address] [place], [place], [id number] SOYBEAN <0.10 Normal Class 0 [facility] Comment on above: Performed By: #### L 500.4050, L3100.5440, L300.3900, L503.6150, L501.6710, L3300.1200, L3100.3425, L3200.1100, L501.9520, L5500.0410, L3000.0375, L3410.2400, L3400.8000, L504.2610, L100.0100, L501.9985, L101.9900 #### [facility] [address] [facility] [place], [place], [id number] WALNUT,(Food) <0.10 Normal Class 0 [facility] Comment on above: Performed By: #### L 500.4050, L3100.5440, L300.3900, L503.6150, L501.6710, L3300.1200, L3100.3425, L3200.1100, L501.9520, L5500.0410, L3000.0375, L3410.2400, L3400.8000, L504.2610, L100.0100, L501.9985, L101.9900 #### [facility] [address] [facility] [address] [place], [place], [id number] WHEAT <0.10 Normal Class 0 [facility] Comment on above: Performed By: #### L 500.4050, L3100.5440, L300.3900, L503.6150, L501.6710, L3300.1200, L3100.3425, L3200.1100, L501.9520, L5500.0410, L3000.0375, L3410.2400, L3400.8000, L504.2610, L100.0100, L501.9985, L101.9900 #### [facility] [address] [facility] [place], [place], [id number] Celiac Disease Profileon ENDOMYSIAL IGA Negative Normal Negative [facility] Comment on above: Performed By: #### L 500.4050, L3100.5440, L300.3900, L503.6150, L501.6710, L3300.1200, L3100.3425, L3200.1100, L501.9520, L5500.0410, L3000.0375, L3410.2400, L3400.8000, L504.2610, L100.0100, L501.9985, L101.9900 #### [facility] [address] [place], [address] tTG IGA <2 Normal 0-3 [facility] Comment on above: Result Comment: Nega tive [...] L3410.2400, L3400.8000, L504.2610, L100.0100, L501.9985, L101.9900 #### [facility] [address] [facility] [place], [address] Hepatitis Panel Acuteon 07-0 COMMENT Comment Normal . [facility] Comment on above: Result Comment: Not infected with HCV unless early or acute infection is suspected (which may be delayed in an immunocompromised individual), or other evidence exists to indicate HCV infection. Performed By: #### L 500.4050, L3100.5440, L300.3900, L503.6150, L501.6710, L3300.1200, L3100.3425, L3200.1100, L501.9520, L5500.0410, L3000.0375, L3410.2400, L3400.8000, L504.2610, L100.0100, L501.9985, L101.9900 #### [facility] [address] [place], [place], [id number] HEP B CORE,IgM Negative Normal Negative [facility] Comment on above: Performed By: #### L 500.4050, L3100.5440, L300.3900, L503.6150, L501.6710, L3300.1200, L3100.3425, L3200.1100, L501.9520, L5500.0410, L3000.0375, L3410.2400, L3400.8000, L504.2610, L100.0100, L501.9985, L101.9900 #### [facility] [address] [place], [address] HEP B SURF AG Negative Normal Negative [facility] Comment on above: Performed By: #### L 500.4050, L3100.5440, L300.3900, L503.6150, L501.6710, L3300.1200, L3100.3425, L3200.1100, L501.9520, L5500.0410, L3000.0375, L3410.2400, L3400.8000, L504.2610, L100.0100, L501.9985, L101.9900 #### [facility] [address] [facility] [place], [address] HEP C VIRUS AB Non-Reactive Normal Non Reactive [facility] Comment on above: Performed By: #### L 500.4050, L3100.5440, L300.3900, L503.6150, L501.6710, L3300.1200, L3100.3425, L3200.1100, L501.9520, L5500.0410, L3000.0375, L3410.2400, L3400.8000, L504.2610, L100.0100, L501.9985, L101.9900 #### [facility] [address] [facility] [place], [address] HEPATITIS A-IgM Negative Normal Negative [facility] Comment on above: Result Comment: A ne gative anti-HAV IgM result suggests no recent or current HAV infection. Performed By: #### L 500.4050, L3100.5440, L300.3900, L503.6150, L501.6710, L3300.1200, L3100.3425, L3200.1100, L501.9520, L5500.0410, L3000.0375, L3410.2400, L3400.8000, L504.2610, L100.0100, L501.9985, L101.9900 #### [facility] [address] [place], [place], [id number] DAWSON + Protein Elect, Serumon 09-28-2024 Albumin [Mass/Vol] 3.2 g/dL Normal 2.9-4.4 [facility] Comment on above: Order Comment: N Performed By: #### L 500.4050, L3100.5440, L300.3900, L503.6150, L501.6710, L3300.1200, L3100.3425, L3200.1100, L501.9520, L5500.0410, L3000.0375, L3410.2400, L3400.8000, L504.2610, L100.0100, L501.9985, L101.9900 #### [facility] [address] [place], [address] Albumin/Globulin [Mass ratio] 1.1 {ratio} Normal 0.7-1.7 [facility] Comment on above: Order Comment: N Performed By: #### L 500.4050, L3100.5440, L300.3900, L503.6150, L501.6710, L3300.1200, L3100.3425, L3200.1100, L501.9520, L5500.0410, L3000.0375, L3410.2400, L3400.8000, L504.2610, L100.0100, L501.9985, L101.9900 #### [facility] [address] [place], [place], [id number] GMLOW-4-NVYS 0.3 g/dL Normal 0.0-0.4 [facility] Comment on above: Order Comment: N Performed By: #### L 500.4050, L3100.5440, L300.3900, L503.6150, L501.6710, L3300.1200, L3100.3425, L3200.1100, L501.9520, L5500.0410, L3000.0375, L3410.2400, L3400.8000, L504.2610, L100.0100, L501.9985, L101.9900 #### [facility] [address] [place], [address] (819) SSVFT-3-GPEW 1.0 g/dL Normal 0.4-1.0 [facility] Comment on above: Order Comment: N Performed By: #### L 500.4050, L3100.5440, L300.3900, L503.6150, L501.6710, L3300.1200, L3100.3425, L3200.1100, L501.9520, L5500.0410, L3000.0375, L3410.2400, L3400.8000, L504.2610, L100.0100, L501.9985, L101.9900 #### [facility] [address] [place], [address] (169) BETA GLOBULIN 1.0 g/dL Normal 0.7-1.3 [facility] Comment on above: Order Comment: N Performed By: #### L 500.4050, L3100.5440, L300.3900, L503.6150, L501.6710, L3300.1200, L3100.3425, L3200.1100, L501.9520, L5500.0410, L3000.0375, L3410.2400, L3400.8000, L504.2610, L100.0100, L501.9985, L101.9900 #### [facility] [address] [place], [address] (065) GAMMA GLOBULIN 0.8 g/dL Normal 0.4-1.8 [facility] Comment on above: Order Comment: N Performed By: #### L 500.4050, L3100.5440, L300.3900, L503.6150, L501.6710, L3300.1200, L3100.3425, L3200.1100, L501.9520, L5500.0410, L3000.0375, L3410.2400, L3400.8000, L504.2610, L100.0100, L501.9985, L101.9900 #### [facility] [address] [place], [place], [id number] ([phone]) Globulin (S) [Mass/Vol] 3.1 g/dL Normal 2.2-3.9 [facility] Comment on above: Order Comment: N Performed By: #### L 500.4050, L3100.5440, L300.3900, L503.6150, L501.6710, L3300.1200, L3100.3425, L3200.1100, L501.9520, L5500.0410, L3000.0375, L3410.2400, L3400.8000, L504.2610, L100.0100, L501.9985, L101.9900 #### [facility] [address] [place], [place], [id number] DAWSON RESULT,S Comment Normal . [facility] Comment on above: Order Comment: N Result Comment: No m onoclonality detected. Performed By: #### L 500.4050, L3100.5440, L300.3900, L503.6150, L501.6710, L3300.1200, L3100.3425, L3200.1100, L501.9520, L5500.0410, L3000.0375, L3410.2400, L3400.8000, L504.2610, L100.0100, L501.9985, L101.9900 #### [facility] [address] [place], [place], [id number] IMMUNOGLOB A QN 175 mg/dL Normal 87-352 [facility] Comment on above: Order Comment: N Performed By: #### L 500.4050, L3100.5440, L300.3900, L503.6150, L501.6710, L3300.1200, L3100.3425, L3200.1100, L501.9520, L5500.0410, L3000.0375, L3410.2400, L3400.8000, L504.2610, L100.0100, L501.9985, L101.9900 #### [facility] [address] [place], [address] IMMUNOGLOB G QN 724 mg/dL Normal 586-1602 [facility] Comment on above: Order Comment: N Performed By: #### L 500.4050, L3100.5440, L300.3900, L503.6150, L501.6710, L3300.1200, L3100.3425, L3200.1100, L501.9520, L5500.0410, L3000.0375, L3410.2400, L3400.8000, L504.2610, L100.0100, L501.9985, L101.9900 #### [facility] [address] [place], [address] IMMUNOGLOB M QN 211 mg/dL Normal 26-217 [facility] Comment on above: Order Comment: N Performed By: #### L 500.4050, L3100.5440, L300.3900, L503.6150, L501.6710, L3300.1200, L3100.3425, L3200.1100, L501.9520, L5500.0410, L3000.0375, L3410.2400, L3400.8000, L504.2610, L100.0100, L501.9985, L101.9900 #### [facility] [address] [place], [address] M-[facility] Not Observed Normal Not Observed [facility] Comment on above: Order Comment: N Performed By: #### L 500.4050, L3100.5440, L300.3900, L503.6150, L501.6710, L3300.1200, L3100.3425, L3200.1100, L501.9520, L5500.0410, L3000.0375, L3410.2400, L3400.8000, L504.2610, L100.0100, L501.9985, L101.9900 #### [facility] [address] [place], [place], [id number] NOTE: Comment Normal . [facility] Comment on above: Order Comment: N Result Comment: Prot ein electrophoresis scan will follow via computer, mail, or medical representative delivery. Performed By: #### L 500.4050, L3100.5440, L300.3900, L503.6150, L501.6710, L3300.1200, L3100.3425, L3200.1100, L501.9520, L5500.0410, L3000.0375, L3410.2400, L3400.8000, L504.2610, L100.0100, L501.9985, L101.9900 #### [facility] [address] [place], [address] Protein [Mass/Vol] 6.3 g/dL Normal 6.0-8.5 [facility] Comment on above: Order Comment: N Performed By: #### L 500.4050, L3100.5440, L300.3900, L503.6150, L501.6710, L3300.1200, L3100.3425, L3200.1100, L501.9520, L5500.0410, L3000.0375, L3410.2400, L3400.8000, L504.2610, L100.0100, L501.9985, L101.9900 #### [facility] [address] [place], [address] Immunoglobulins G/A/M/Dillon IMMUNOGLOB E QN 27 IU/mL Normal 6-495 [facility] Comment on above: Order Comment: N Performed By: #### L 500.4050, L3100.5440, L300.3900, L503.6150, L501.6710, L3300.1200, L3100.3425, L3200.1100, L501.9520, L5500.0410, L3000.0375, L3410.2400, L3400.8000, L504.2610, L100.0100, L501.9985, L101.9900 #### [facility] [address] [place], [address] Quantiferon TB-Gold+on 09-28 QFT MITOGEN ESTELA > 10.00 Normal . [facility] Comment on above: Performed By: #### L 500.4050, L3100.5440, L300.3900, L503.6150, L501.6710, L3300.1200, L3100.3425, L3200.1100, L501.9520, L5500.0410, L3000.0375, L3410.2400, L3400.8000, L504.2610, L100.0100, L501.9985, L101.9900 #### [facility] [address] [place], [address] (203 QFT NIL VALUE 0.03 IU/mL Normal . [facility] Comment on above: Performed By: #### L 500.4050, L3100.5440, L300.3900, L503.6150, L501.6710, L3300.1200, L3100.3425, L3200.1100, L501.9520, L5500.0410, L3000.0375, L3410.2400, L3400.8000, L504.2610, L100.0100, L501.9985, L101.9900 #### [facility] [address] [place], [address] QFT TB GOLD+ Comment Normal . [facility] Comment on above: Result Comment: Angelito tiFERON-TB [...] L3410.2400, L3400.8000, L504.2610, L100.0100, L501.9985, L101.9900 #### [facility] [address] [place], [address] QFT TB POS CRIT Positive Abnormal Negative [facility] Comment on above: Result Comment: Milly cantu [...] L3410.2400, L3400.8000, L504.2610, L100.0100, L501.9985, L101.9900 #### [facility] [address] [place], [address] QFT TB1+ AG ESTELA 0.40 IU/mL Normal . [facility] Comment on above: Performed By: #### L 500.4050, L3100.5440, L300.3900, L503.6150, L501.6710, L3300.1200, L3100.3425, L3200.1100, L501.9520, L5500.0410, L3000.0375, L3410.2400, L3400.8000, L504.2610, L100.0100, L501.9985, L101.9900 #### [facility] [address] [place], [place], [id number] QFT TB2+ AG ESTELA 0.42 IU/mL Normal . [facility] Comment on above: Performed By: #### L 500.4050, L3100.5440, L300.3900, L503.6150, L501.6710, L3300.1200, L3100.3425, L3200.1100, L501.9520, L5500.0410, L3000.0375, L3410.2400, L3400.8000, L504.2610, L100.0100, L501.9985, L101.9900 #### [facility] [address] [place], [address] Absolute lymphocyte countOrd ered By: Aly Carlos on 09-23-2024 Lymphocytes Auto (Unsp spec) [#/Vol] 3.07 10*3/uL 0.83-4.51 [facility] Absolute neutrophil countOrd ered By: Aly Carlos on 09-23-2024 Neutrophils (Bld) [#/Vol] 3.5 10*3/uL 2.0-7.7 [facility] Albumin Elph [Mass/Vol]Order ed By: Aly Carlos on 09-23-2024 Albumin [Mass/Vol] 3.2 g/dL 2.9-4.4 [facility] Anion gap in Serum or Plasma Ordered By: Aly Carlos on 09-23-2024 Anion gap [Moles/Vol] 13 mmol/L 5-15 [facility] Automated lymphocyte count a s percentage of total leukocytesOrdered By: Aly Carlos on 09-23-2024 Lymphocytes/100 WBC Auto (Unsp spec) 44.6 % High 19-41 [facility] BUN/creatinine ratioOrdered By: Aly Friend on 09-23-2024 Urea nitrogen/Creatinine [Mass ratio] 10.5 mg/mg 10-20 [facility] Basophil percentageOrdered B y: Aly Friend on 09-23-2024 Basophils/100 WBC (Bld) 0.3 % 0-1 [facility] Bilirubin, totalOrdered By: Aly Friend on 09-23-2024 Bilirubin [Mass/Vol] 0.23 mg/dL 0.00-1.30 [facility] CBC W/Diff, Automatedon 07-0 -2024 Absolute Lymph 3.07 X10 3/uL Normal 0.83-4.51 [facility] Comment on above: Performed By: #### L 500.4050, L3100.5440, L300.3900, L503.6150, L501.6710, L3300.1200, L3100.3425, L3200.1100, L501.9520, L5500.0410, L3000.0375, L3410.2400, L3400.8000, L504.2610, L100.0100, L501.9985, L101.9900 #### [facility] [address] [place], [place], [phone] ([phone] Absolute Neut 3.5 X10 3/uL Normal 2.0-7.7 [facility] Comment on above: Performed By: #### L 500.4050, L3100.5440, L300.3900, L503.6150, L501.6710, L3300.1200, L3100.3425, L3200.1100, L501.9520, L5500.0410, L3000.0375, L3410.2400, L3400.8000, L504.2610, L100.0100, L501.9985, L101.9900 #### [facility] [address] [place], [place], [phone] ([phone] Basophils/100 WBC (Bld) 0.3 % Normal 0-1 [facility] Comment on above: Performed By: #### L 500.4050, L3100.5440, L300.3900, L503.6150, L501.6710, L3300.1200, L3100.3425, L3200.1100, L501.9520, L5500.0410, L3000.0375, L3410.2400, L3400.8000, L504.2610, L100.0100, L501.9985, L101.9900 #### [facility] [address] [place], [place], [phone] ([address]) Eosinophils/100 WBC (Bld) 0.1 % Normal 0-5 [facility] Comment on above: Performed By: #### L 500.4050, L3100.5440, L300.3900, L503.6150, L501.6710, L3300.1200, L3100.3425, L3200.1100, L501.9520, L5500.0410, L3000.0375, L3410.2400, L3400.8000, L504.2610, L100.0100, L501.9985, L101.9900 #### [facility] [address] [facility] [place], [place], [id number] Erythrocyte distribution width (RBC) [Ratio] 12.8 % Normal 11.6-14.6 [facility] Comment on above: Performed By: #### L 500.4050, L3100.5440, L300.3900, L503.6150, L501.6710, L3300.1200, L3100.3425, L3200.1100, L501.9520, L5500.0410, L3000.0375, L3410.2400, L3400.8000, L504.2610, L100.0100, L501.9985, L101.9900 #### [facility] [address] [place], [place], [id number] Hematocrit (Bld) [Volume fraction] 41.0 % Normal 37-47 [facility] Comment on above: Performed By: #### L 500.4050, L3100.5440, L300.3900, L503.6150, L501.6710, L3300.1200, L3100.3425, L3200.1100, L501.9520, L5500.0410, L3000.0375, L3410.2400, L3400.8000, L504.2610, L100.0100, L501.9985, L101.9900 #### [facility] [address] [place], [place], [id number] Hemoglobin (Bld) [Mass/Vol] 14.2 g/dL Normal 12.0-15.0 [facility] Comment on above: Performed By: #### L 500.4050, L3100.5440, L300.3900, L503.6150, L501.6710, L3300.1200, L3100.3425, L3200.1100, L501.9520, L5500.0410, L3000.0375, L3410.2400, L3400.8000, L504.2610, L100.0100, L501.9985, L101.9900 #### [facility] [address] [place], [address] IG% 0.100 Normal 0.0-0.9 [facility] Comment on above: Result Comment: IG% - Immature Granulocytes (promyelocytes, myelocytes and metamyelocytes) > 1% indicates that a LEFT SHIFT is Present. Performed By: #### L 500.4050, L3100.5440, L300.3900, L503.6150, L501.6710, L3300.1200, L3100.3425, L3200.1100, L501.9520, L5500.0410, L3000.0375, L3410.2400, L3400.8000, L504.2610, L100.0100, L501.9985, L101.9900 #### [facility] [address] [place], [address] Lymphocytes/100 WBC (Bld) 44.6 % High 19-41 [facility] Comment on above: Performed By: #### L 500.4050, L3100.5440, L300.3900, L503.6150, L501.6710, L3300.1200, L3100.3425, L3200.1100, L501.9520, L5500.0410, L3000.0375, L3410.2400, L3400.8000, L504.2610, L100.0100, L501.9985, L101.9900 #### [facility] [address] [place], [address] MCH (RBC) [Entitic mass] 30.7 pg Normal 27.0-32.0 [facility] Comment on above: Performed By: #### L 500.4050, L3100.5440, L300.3900, L503.6150, L501.6710, L3300.1200, L3100.3425, L3200.1100, L501.9520, L5500.0410, L3000.0375, L3410.2400, L3400.8000, L504.2610, L100.0100, L501.9985, L101.9900 #### [facility] [address] [place], [address] MCHC (RBC) [Mass/Vol] 34.6 g/dL Normal 32-36 [facility] Comment on above: Performed By: #### L 500.4050, L3100.5440, L300.3900, L503.6150, L501.6710, L3300.1200, L3100.3425, L3200.1100, L501.9520, L5500.0410, L3000.0375, L3410.2400, L3400.8000, L504.2610, L100.0100, L501.9985, L101.9900 #### [facility] [address] [place], [address] MCV (RBC) [Entitic vol] 88.6 fL Normal 81-99 [facility] Comment on above: Performed By: #### L 500.4050, L3100.5440, L300.3900, L503.6150, L501.6710, L3300.1200, L3100.3425, L3200.1100, L501.9520, L5500.0410, L3000.0375, L3410.2400, L3400.8000, L504.2610, L100.0100, L501.9985, L101.9900 #### [facility] [address] [place], [address] Monocytes/100 WBC (Bld) 4.1 % Normal 0-10 [facility] Comment on above: Performed By: #### L 500.4050, L3100.5440, L300.3900, L503.6150, L501.6710, L3300.1200, L3100.3425, L3200.1100, L501.9520, L5500.0410, L3000.0375, L3410.2400, L3400.8000, L504.2610, L100.0100, L501.9985, L101.9900 #### [facility] [address] [place], [address] Neutrophils/100 WBC (Bld) 50.8 % Normal 47-70 [facility] Comment on above: Performed By: #### L 500.4050, L3100.5440, L300.3900, L503.6150, L501.6710, L3300.1200, L3100.3425, L3200.1100, L501.9520, L5500.0410, L3000.0375, L3410.2400, L3400.8000, L504.2610, L100.0100, L501.9985, L101.9900 #### [facility] [address] [place], [address] Nucleated RBC (Bld) [#/Vol] 0 10*3/uL Normal 0-5 [facility] Comment on above: Performed By: #### L 500.4050, L3100.5440, L300.3900, L503.6150, L501.6710, L3300.1200, L3100.3425, L3200.1100, L501.9520, L5500.0410, L3000.0375, L3410.2400, L3400.8000, L504.2610, L100.0100, L501.9985, L101.9900 #### [facility] [address] [place], [address] Platelet mean volume (Bld) [Entitic vol] 10.0 fL Normal 6.2-12.0 [facility] Comment on above: Performed By: #### L 500.4050, L3100.5440, L300.3900, L503.6150, L501.6710, L3300.1200, L3100.3425, L3200.1100, L501.9520, L5500.0410, L3000.0375, L3410.2400, L3400.8000, L504.2610, L100.0100, L501.9985, L101.9900 #### [facility] [address] [facility] [place], [address] Platelets (Bld) [#/Vol] 302 10*3/uL Normal 150-450 [facility] Comment on above: Performed By: #### L 500.4050, L3100.5440, L300.3900, L503.6150, L501.6710, L3300.1200, L3100.3425, L3200.1100, L501.9520, L5500.0410, L3000.0375, L3410.2400, L3400.8000, L504.2610, L100.0100, L501.9985, L101.9900 #### [facility] [address] [place], [address] RBC (Bld) [#/Vol] 4.63 10*6/uL Normal 4.2-5.4 [facility] Comment on above: Performed By: #### L 500.4050, L3100.5440, L300.3900, L503.6150, L501.6710, L3300.1200, L3100.3425, L3200.1100, L501.9520, L5500.0410, L3000.0375, L3410.2400, L3400.8000, L504.2610, L100.0100, L501.9985, L101.9900 #### [facility] [address] [place], [place], [id number] RDW SD 41.1 fl Normal 35.1-43.9 [facility] Comment on above: Performed By: #### L 500.4050, L3100.5440, L300.3900, L503.6150, L501.6710, L3300.1200, L3100.3425, L3200.1100, L501.9520, L5500.0410, L3000.0375, L3410.2400, L3400.8000, L504.2610, L100.0100, L501.9985, L101.9900 #### [facility] [address] [facility] [place], [place], [id number] WBC (Bld) [#/Vol] 6.9 10*3/uL Normal 4.4-11.0 [facility] Comment on above: Performed By: #### L 500.4050, L3100.5440, L300.3900, L503.6150, L501.6710, L3300.1200, L3100.3425, L3200.1100, L501.9520, L5500.0410, L3000.0375, L3410.2400, L3400.8000, L504.2610, L100.0100, L501.9985, L101.9900 #### [facility] [address] [place], [place], [id number] CRPon 09-23-2024 C-REACTIVE PROT 26.10 mg/L High 0.0-3.0 [facility] Comment on above: Performed By: #### L 500.4050, L3100.5440, L300.3900, L503.6150, L501.6710, L3300.1200, L3100.3425, L3200.1100, L501.9520, L5500.0410, L3000.0375, L3410.2400, L3400.8000, L504.2610, L100.0100, L501.9985, L101.9900 #### [facility] [address] [place], [address] Carbon dioxide, total [Moles /volume] in Central venous bloodOrdered By: Aly Carlos on 09-23-2024 CO2 [Moles/Vol] 22.7 mmol/L 21.0-32.0 [facility] Chloride assayOrdered By: Ra tammy Carlos on 09-23-2024 Chloride [Moles/Vol] 102 mmol/L 98-108 [facility] Comprehensive Metabolic Prof ilon 09-23-2024 Albumin [Mass/Vol] 4.1 g/dL Normal 3.5-5.0 [facility] Comment on above: Performed By: #### L 500.4050, L3100.5440, L300.3900, L503.6150, L501.6710, L3300.1200, L3100.3425, L3200.1100, L501.9520, L5500.0410, L3000.0375, L3410.2400, L3400.8000, L504.2610, L100.0100, L501.9985, L101.9900 #### [facility] [address] [place], [address] Albumin/Globulin [Mass ratio] 1.4 {ratio} Normal 0.9-2.4 [facility] Comment on above: Performed By: #### L 500.4050, L3100.5440, L300.3900, L503.6150, L501.6710, L3300.1200, L3100.3425, L3200.1100, L501.9520, L5500.0410, L3000.0375, L3410.2400, L3400.8000, L504.2610, L100.0100, L501.9985, L101.9900 #### [facility] [address] [place], [place], [id number] ALK PHOS 159 U/L High 35-104 [facility] Comment on above: Performed By: #### L 500.4050, L3100.5440, L300.3900, L503.6150, L501.6710, L3300.1200, L3100.3425, L3200.1100, L501.9520, L5500.0410, L3000.0375, L3410.2400, L3400.8000, L504.2610, L100.0100, L501.9985, L101.9900 #### [facility] [address] [facility] [place], [address] ALT [Catalytic activity/Vol] 16 U/L Normal <=34 [facility] Comment on above: Performed By: #### L 500.4050, L3100.5440, L300.3900, L503.6150, L501.6710, L3300.1200, L3100.3425, L3200.1100, L501.9520, L5500.0410, L3000.0375, L3410.2400, L3400.8000, L504.2610, L100.0100, L501.9985, L101.9900 #### [facility] [address] [place], [address] AST [Catalytic activity/Vol] 14 U/L Normal <=31 [facility] Comment on above: Performed By: #### L 500.4050, L3100.5440, L300.3900, L503.6150, L501.6710, L3300.1200, L3100.3425, L3200.1100, L501.9520, L5500.0410, L3000.0375, L3410.2400, L3400.8000, L504.2610, L100.0100, L501.9985, L101.9900 #### [facility] [address] [place], [place], [id number] Bilirubin [Mass/Vol] 0.23 mg/dL Normal 0.00-1.30 [facility] Comment on above: Performed By: #### L 500.4050, L3100.5440, L300.3900, L503.6150, L501.6710, L3300.1200, L3100.3425, L3200.1100, L501.9520, L5500.0410, L3000.0375, L3410.2400, L3400.8000, L504.2610, L100.0100, L501.9985, L101.9900 #### [facility] [address] [place], [address] BUN/CRE 10.5 RATIO Normal 10-20 [facility] Comment on above: Performed By: #### L 500.4050, L3100.5440, L300.3900, L503.6150, L501.6710, L3300.1200, L3100.3425, L3200.1100, L501.9520, L5500.0410, L3000.0375, L3410.2400, L3400.8000, L504.2610, L100.0100, L501.9985, L101.9900 #### [facility] [address] [place], [address] Calcium [Mass/Vol] 9.2 mg/dL Normal 7.6-11.0 [facility] Comment on above: Performed By: #### L 500.4050, L3100.5440, L300.3900, L503.6150, L501.6710, L3300.1200, L3100.3425, L3200.1100, L501.9520, L5500.0410, L3000.0375, L3410.2400, L3400.8000, L504.2610, L100.0100, L501.9985, L101.9900 #### [facility] [address] [place], [place], [address] Chloride [Moles/Vol] 102 mmol/L Normal 98-108 [facility] Comment on above: Performed By: #### L 500.4050, L3100.5440, L300.3900, L503.6150, L501.6710, L3300.1200, L3100.3425, L3200.1100, L501.9520, L5500.0410, L3000.0375, L3410.2400, L3400.8000, L504.2610, L100.0100, L501.9985, L101.9900 #### [facility] [address] [place], [address] CO2 [Moles/Vol] 22.7 mmol/L Normal 21.0-32.0 [facility] Comment on above: Performed By: #### L 500.4050, L3100.5440, L300.3900, L503.6150, L501.6710, L3300.1200, L3100.3425, L3200.1100, L501.9520, L5500.0410, L3000.0375, L3410.2400, L3400.8000, L504.2610, L100.0100, L501.9985, L101.9900 #### [facility] [address] [place], [place], [address] Creatinine [Mass/Vol] 0.61 mg/dL Low 0.70-1.20 [facility] Comment on above: Performed By: #### L 500.4050, L3100.5440, L300.3900, L503.6150, L501.6710, L3300.1200, L3100.3425, L3200.1100, L501.9520, L5500.0410, L3000.0375, L3410.2400, L3400.8000, L504.2610, L100.0100, L501.9985, L101.9900 #### [facility] [address] [facility] [place], [place], [id number] GAP 13 Normal 5-15 [facility] Comment on above: Performed By: #### L 500.4050, L3100.5440, L300.3900, L503.6150, L501.6710, L3300.1200, L3100.3425, L3200.1100, L501.9520, L5500.0410, L3000.0375, L3410.2400, L3400.8000, L504.2610, L100.0100, L501.9985, L101.9900 #### [facility] [address] [facility] [place], [address] GFR/1.73 sq M.predicted among non-blacks MDRD (S/P/Bld) [Vol rate/Area] 110 mL/min/{1.73_m2} Normal >60 [facility] Comment on above: Result Comment: mL/m in/1.73m2 CKD-EPI Creatinine Equation (2020) Performed By: #### L 500.4050, L3100.5440, L300.3900, L503.6150, L501.6710, L3300.1200, L3100.3425, L3200.1100, L501.9520, L5500.0410, L3000.0375, L3410.2400, L3400.8000, L504.2610, L100.0100, L501.9985, L101.9900 #### [facility] [address] [place], [address] Globulin (S) [Mass/Vol] 2.8 g/dL Normal 2.2-4.2 [facility] Comment on above: Performed By: #### L 500.4050, L3100.5440, L300.3900, L503.6150, L501.6710, L3300.1200, L3100.3425, L3200.1100, L501.9520, L5500.0410, L3000.0375, L3410.2400, L3400.8000, L504.2610, L100.0100, L501.9985, L101.9900 #### [facility] [address] [place], [address] Glucose [Mass/Vol] 92 mg/dL Normal 70-99 [facility] Comment on above: Performed By: #### L 500.4050, L3100.5440, L300.3900, L503.6150, L501.6710, L3300.1200, L3100.3425, L3200.1100, L501.9520, L5500.0410, L3000.0375, L3410.2400, L3400.8000, L504.2610, L100.0100, L501.9985, L101.9900 #### [facility] [address] [place], [address] Potassium [Moles/Vol] 3.8 mmol/L Normal 3.3-5.1 [facility] Comment on above: Performed By: #### L 500.4050, L3100.5440, L300.3900, L503.6150, L501.6710, L3300.1200, L3100.3425, L3200.1100, L501.9520, L5500.0410, L3000.0375, L3410.2400, L3400.8000, L504.2610, L100.0100, L501.9985, L101.9900 #### [facility] [address] [place], [address] Sodium [Moles/Vol] 138 mmol/L Normal 133-145 [facility] Comment on above: Performed By: #### L 500.4050, L3100.5440, L300.3900, L503.6150, L501.6710, L3300.1200, L3100.3425, L3200.1100, L501.9520, L5500.0410, L3000.0375, L3410.2400, L3400.8000, L504.2610, L100.0100, L501.9985, L101.9900 #### [facility] [address] [place], [address] T PROT 6.9 g/dL Normal 5.9-8.4 [facility] Comment on above: Performed By: #### L 500.4050, L3100.5440, L300.3900, L503.6150, L501.6710, L3300.1200, L3100.3425, L3200.1100, L501.9520, L5500.0410, L3000.0375, L3410.2400, L3400.8000, L504.2610, L100.0100, L501.9985, L101.9900 #### [facility] [address] [place], [address] Urea nitrogen [Mass/Vol] 6 mg/dL Normal 4-19 [facility] Comment on above: Performed By: #### L 500.4050, L3100.5440, L300.3900, L503.6150, L501.6710, L3300.1200, L3100.3425, L3200.1100, L501.9520, L5500.0410, L3000.0375, L3410.2400, L3400.8000, L504.2610, L100.0100, L501.9985, L101.9900 #### [facility] [address] [place], [address] Eosinophil percentageOrdered By: Aly Carlos on 09-23-2024 Eosinophils/100 WBC (Bld) 0.1 % 0-5 [facility] Erythrocyte Sed Rateon 09-23 SED RATE 13 mm/hr Normal 0-30 [facility] Comment on above: Performed By: #### L 500.4050, L3100.5440, L300.3900, L503.6150, L501.6710, L3300.1200, L3100.3425, L3200.1100, L501.9520, L5500.0410, L3000.0375, L3410.2400, L3400.8000, L504.2610, L100.0100, L501.9985, L101.9900 #### [facility] [address] [place], [address] Erythrocyte distribution wid th ratioOrdered By: Aly Carlos on 09-23-2024 Erythrocyte distribution width (RBC) [Ratio] 12.8 % 11.6-14.6 [facility] Erythrocyte distribution wid th standard deviationOrdered By: Aly Carlos on 09-23-2024 Erythrocyte distribution width (RBC) [Ratio] 41.1 fl 35.1-43.9 [facility] Erythrocyte sedimentation ra teOrdered By: Aly Carlos on 09-23-2024 ESR (Bld) [Velocity] 13 mm/h 0-30 [facility] Gastroenterology Visit Repor ton 09-23-2024 Gastroenterology Visit Report [facility] [address] [place] [address] OFFICE VISIT Date of Service: 09/23/24 MR#: [id number] Acct: [id number] Name: CATHY CAM Milly Rep #: [id number] : 1975 Provider: Aly Carlos DO Age/Sex: 49/F Location: [facility] [place] Status: Signed Intake Vital Signs 07/28/24 11:18 [...] 1 - 2 puff inhalation Q4H PRN FL N 09/28/22 09/23/24 Rx aerosol inhaler (Ventolin [...] any questions or concerns at this time. [facility] Medical History Kidney disease Hypothyroidism Seizures Anxiety [...] cooperative, health (more content not included)... Normal [facility] Glomerular filtration rate ( GFR) estimation/1.73 sq m using serum, plasma, or whole bOrdered By: Aly Friend on 09-23-2024 GFR/1.73 sq M.predicted among non-blacks MDRD (S/P/Bld) [Vol rate/Area] 110 mL/min/{1.73_m2} >60 [facility] Comment on above: mL/min/1.73m2 CKD-EP I Creatinine Equation (2020) Hematocrit Auto (Bld) [Volum e fraction]Ordered By: Aly Carlos on 09-23-2024 Hematocrit (Bld) [Volume fraction] 41.0 % 37-47 [facility] Hemoglobin A1con 09-23-2024 HbA1c (Bld) [Mass fraction] 5.2 % Normal <=5.6 [facility] Comment on above: Result Comment: Norm al < 5.7 % Prediabetic 5.7 - 6.4 % Diabetic >or= 6.5 % Please note range changes. Performed By: #### L 500.4050, L3100.5440, L300.3900, L503.6150, L501.6710, L3300.1200, L3100.3425, L3200.1100, L501.9520, L5500.0410, L3000.0375, L3410.2400, L3400.8000, L504.2610, L100.0100, L501.9985, L101.9900 #### [facility] [address] [place] [address]. [place], [place], [id number] Hemoglobin A1c percentageOrd ered By: Aly Carlos on 09-23-2024 HbA1c (Bld) [Mass fraction] 5.2 % <5.7 [facility] Comment on above: Normal < 5.7 % Predi abetic 5.7 - 6.4 % Diabetic >or= 6.5 % Please note range changes. Hemoglobin measurementOrdere d By: Aly Carlos on 09-23-2024 Hemoglobin (Bld) [Mass/Vol] 14.2 g/dL 12.0-15.0 [facility] IgEOrdered By: Aly Woods d on 09-23-2024 IgE 27 IU/mL 6-495 [facility] Immature granulocytes/100 WB C Auto (Bld)Ordered By: Aly Carlos on 09-23-2024 Immature granulocytes/100 WBC (Bld) 0.100 % 0.0-0.9 [facility] Comment on above: IG% - Immature Granu locytes (promyelocytes, myelocytes and metamyelocytes) > 1% indicates that a LEFT SHIFT is Present. International normalized rat io (INR) calculationOrdered By: Aly Carlos on 09-23-2024 INR Coag (Bld) [Relative time] 1.0 {INR} [facility] Interpretation of serum or p lasma protein pattern by immunofixation (narrative resultOrdered By: Aly Carlos on 09-23-2024 Protein Fractions Immunofixation Mynor [Interp] Not Observed g/dL Not Observed [facility] Ironon 09-23-2024 Iron [Mass/Vol] 90 ug/dL Normal 50-170 [facility] Comment on above: Performed By: #### L 500.4050, L3100.5440, L300.3900, L503.6150, L501.6710, L3300.1200, L3100.3425, L3200.1100, L501.9520, L5500.0410, L3000.0375, L3410.2400, L3400.8000, L504.2610, L100.0100, L501.9985, L101.9900 #### [facility] [address] [facility]. [place], [place], [id number] Iron measurement (mass/mass) Ordered By: Aly Carlos on 09-23-2024 Iron (Unsp spec) [Mass/Mass] 90 ug/dL 50-170 [facility] LDHon 09-23-2024 LDH 180 U/L Normal 84-246 [facility] Comment on above: Order Comment: 1 Performed By: #### L 500.4050, L3100.5440, L300.3900, L503.6150, L501.6710, L3300.1200, L3100.3425, L3200.1100, L501.9520, L5500.0410, L3000.0375, L3410.2400, L3400.8000, L504.2610, L100.0100, L501.9985, L101.9900 #### [facility] [address] [facility] [place], [address] Laboratory - Chemistry and C hemistry - challengeOrdered By: Aly Carlos on 09-23-2024 AST [Catalytic activity/Vol] 14 U/L <32 [facility] - Miscellaneous t estsOrdered By: Aly Carlos on 09-23-2024 Service comment (Unsp spec) [Interp] Comment . [facility] Comment on above: Levels of Specific I [...] 09-23-2024 LDH [Catalytic activity/Vol] 180 U/L 84-246 [facility] MCV (mean corpuscular volume ) determinationOrdered By: Aly Carlos on 09-23-2024 MCV (RBC) [Entitic vol] 88.6 fL 81-99 [facility] Mean corpuscular hemoglobin (MCH) determinationOrdered By: Aly Carlos on 09-23-2024 MCH (RBC) [Entitic mass] 30.7 pg 27.0-32.0 [facility] Mean corpuscular hemoglobin concentration (MCHC) determinationOrdered By: Aly Carlos on 09-23-2024 MCHC (RBC) [Mass/Vol] 34.6 g/dL 32-36 [facility] Mean platelet volume determi nationOrdered By: Aly Carlos on 09-23-2024 Platelet mean volume (Bld) [Entitic vol] 10.0 fL 6.2-12.0 [facility] Monocyte percentageOrdered B y: Aly Carlos on 09-23-2024 Monocytes/100 WBC (Bld) 4.1 % 0-10 [facility] Neutrophil percentageOrdered By: Aly Carlos on 09-23-2024 Neutrophils/100 WBC (Bld) 50.8 % 47-70 [facility] No Panel InformationOrdered By: Aly Carlos on 09-23-2024 Addendum Document Comment . [facility] Comment on above: Protein electrophore sis scan will follow via computer,mail, or medical representative delivery. Hepatitis C Antibody Comment Comment . [facility] Comment on above: Not infected with HC V unless early or acute infection issuspected (which may be delayed in an immunocompromisedindividual), or other evidence exists to indicate HCVinfection. Nucleated red blood cell per centageOrdered By: Aly Carlos on 09-23-2024 Nucleated RBC/100 WBC (Bld) [Ratio] 0 % 0-5 [facility] Platelet countOrdered By: Ra tammy Carlos on 09-23-2024 Platelets (Bld) [#/Vol] 302 10*3/uL 150-450 [facility] Potassium measurement (mass/ volume)Ordered By: Aly Carlos on 09-23-2024 Potassium (Unsp spec) [Mass/Vol] 3.8 mmol/L 3.3-5.1 [facility] Prothrombin Time w/INRon INR Coag (PPP) [Relative time] 1.0 {INR} Normal [facility] Comment on above: Performed By: #### L 500.4050, L3100.5440, L300.3900, L503.6150, L501.6710, L3300.1200, L3100.3425, L3200.1100, L501.9520, L5500.0410, L3000.0375, L3410.2400, L3400.8000, L504.2610, L100.0100, L501.9985, L101.9900 #### [facility] [address] [place], [place], [id number] PT Coag (PPP) [Time] 13.1 s Normal 11.7-14.9 [facility] Comment on above: Performed By: #### L 500.4050, L3100.5440, L300.3900, L503.6150, L501.6710, L3300.1200, L3100.3425, L3200.1100, L501.9520, L5500.0410, L3000.0375, L3410.2400, L3400.8000, L504.2610, L100.0100, L501.9985, L101.9900 #### [facility] [address] [place], [address] Prothrombin timeOrdered By: Aly Carlos on 09-23-2024 PT Coag (PPP) [Time] 13.1 s 11.7-14.9 [facility] Qualitative QuantiFERON-TB g old in tube testOrdered By: Aly Carlos on 09-23-2024 M. tuberculosis tuberculin stim IFN-g Ql (Bld) 0.40 IU/mL . [facility] RBC Auto (Bld) [#/Vol]Ordere d By: Aly Carlos on 09-23-2024 RBC (Bld) [#/Vol] 4.63 10*6/uL 4.2-5.4 [facility] Serum DNA double strand anti body assay (units/volume)Ordered By: Aly Carlos on 09-23-2024 DNA double strand Ab Qn (S) 1 [IU]/mL 0-9 [facility] Comment on above: Negative <5 Equivoca l 5 - 9 Positive >9 Serum Scl-70 antibody assay (units/volume)Ordered By: Aly Carlos on 09-23-2024 SCL-70 extractable nuclear Ab Qn (S) TNP [facility] Comment on above: Test not performed SCL-70 extractable nuclear Ab Qn (S) <0.2 AI 0.0-0.9 [facility] Comment on above: Previous reported re sult: TNP AIEdited by: YOANA on 09/28/24:0407 AMENDED REPORT 09/28/24406 ANTISCLER previously reported as: Test not performed Serum black walnut IgE antib evelio assay (units/volume)Ordered By: Aly Carlos on 09-23-2024 [place] IgE Qn (S) <0.10 kU/L Class 0 [facility] Serum clam IgE antibody assa y (units/volume)Ordered By: Aly Carlos on 09-23-2024 Clam IgE Qn (S) <0.10 kU/L Class 0 [facility] Serum classic neutrophil cyt oplasmic antibody assay (units/volume)Ordered By: Aly Carlos on 09-23-2024 Neutrophil cytoplasmic Ab.classic Qn (S) <1:20 titer Neg:<1:20 [facility] Serum codfish IgE antibody a ssay (units/volume)Ordered By: Aly Carlos on 09-23-2024 Codfish IgE Qn (S) <0.10 kU/L Class 0 [facility] Serum corn IgE antibody assa y (units/volume)Ordered By: Aly Carlos on 09-23-2024 [place] IgE Qn (S) <0.10 kU/L Class 0 [facility] Serum cow milk IgE antibody assay (units/volume)Ordered By: Aly Carlos on 09-23-2024 Cow milk IgE Qn (S) <0.10 kU/L Class 0 [facility] Serum creatinine measurement (mass/volume)Ordered By: Aly Carlos on 09-23-2024 Creatinine [Mass/Vol] 0.61 mg/dL Low 0.70-1.20 [facility] Serum egg white IgE antibody assay (units/volume)Ordered By: Aly Carlos on 09-23-2024 Egg white IgE Qn (S) <0.10 kU/L Class 0 [facility] Serum globulin measurement ( mass/volume)Ordered By: Aly Carlos on 09-23-2024 Globulin (S) [Mass/Vol] 3.1 g/dL 2.2-3.9 [facility] Serum glucose measurement (m ass/volume)Ordered By: Aly Carlos on 09-23-2024 Glucose [Mass/Vol] 92 mg/dL 70-99 [facility] Serum or plasma C reactive p rotein measurement (mass/volume)Ordered By: Ayl Carlos on 09-23-2024 CRP [Mass/Vol] 26.10 mg/L High 0.0-3.0 [facility] Serum or plasma IgA measurem ent (mass/volume)Ordered By: Aly Carlos on 09-23-2024 IgA [Mass/Vol] 175 mg/dL 87-352 [facility] Serum or plasma IgG measurem ent (mass/volume)Ordered By: Aly Carlos on 09-23-2024 IgG [Mass/Vol] 724 mg/dL 586-1602 [facility] Serum or plasma alanine farooq otransferase (ALT) measurementOrdered By: Aly Carlos on 09-23-2024 ALT [Catalytic activity/Vol] 16 U/L <35 [facility] Serum or plasma albumin binh urement (mass/volume)Ordered By: Aly Carlos on 09-23-2024 Albumin [Mass/Vol] 4.1 g/dL 3.5-5.0 [facility] Serum or plasma albumin/glob ulin mass ratioOrdered By: Aly Carlos on 09-23-2024 Albumin/Globulin [Mass ratio] 1.4 {ratio} 0.9-2.4 [facility] Serum or plasma alkaline valarie sphatase measurementOrdered By: Aly Carlos on 09-23-2024 ALP [Catalytic activity/Vol] 159 U/L High 35-104 [facility] Serum or plasma alpha 1 glob ulin measurement by electrophoresis (mass/volume)Ordered By: Aly Carlos on 09-23-2024 Alpha 1 globulin Elph [Mass/Vol] 0.3 g/dL 0.0-0.4 [facility] Alpha 1 globulin Elph [Mass/Vol] 1.0 g/dL 0.4-1.0 [facility] Serum or plasma beta globuli n measurement by electrophoresis (mass/volume)Ordered By: Aly Carlos on 09-23-2024 Beta globulin Elph [Mass/Vol] 1.0 g/dL 0.7-1.3 [facility] Serum or plasma calcium binh urement (mass/volume)Ordered By: Aly Carlos on 09-23-2024 Calcium [Mass/Vol] 9.2 mg/dL 7.6-11.0 [facility] Serum or plasma gamma globul in measurement by electrophoresis (mass/volume)Ordered By: Aly Carlos on 09-23-2024 Gamma globulin Elph [Mass/Vol] 0.8 g/dL 0.4-1.8 [facility] Serum or plasma hepatitis B virus surface antigen detection by immunoassayOrdered By: Aly Carlos on 09-23-2024 HBV surface Ag IA Ql Negative Negative [facility] Serum or plasma immunoelectr ophoresis interpretation (nominal result)Ordered By: Aly Carlos on 09-23-2024 Interpretation IEP [Interp] Comment . [facility] Comment on above: No monoclonality det ected. Serum or plasma protein binh urement (mass/volume)Ordered By: Aly Carlos on 09-23-2024 Protein [Mass/Vol] 6.3 g/dL 6.0-8.5 [facility] Serum or plasma urea nitroge n measurement (mass/volume)Ordered By: Aly Carlos on 09-23-2024 Urea nitrogen [Mass/Vol] 6 mg/dL 4-19 [facility] Serum peanut IgE antibody as say (units/volume)Ordered By: Aly Carlos on 09-23-2024 Peanut IgE Qn (S) <0.10 kU/L Class 0 [facility] Serum perinuclear neutrophil cytoplasmic antibody titer by immunofluorescenceOrdered By: Aly Carlos on 09-23-2024 Neutrophil cytoplasmic Ab.perinuclear IF (S) [Titer] 1:80 titer High Neg:<1:20 [facility] Comment on above: The presence of posi tive fluorescence exhibiting P-ANCA orC-ANCA patterns alone is not specific for the diagnosis ofWegener's Granulomatosis (WG) or microscopic polyangiitis.Decisions about treatment should not be based solely onANCA IFA results. The International ANCA Group Consensusrecommends follow up testing of positive sera with both FL-3 and MPO-ANCA enzyme immunoassays. As many as 5% serumsamples are positive only by EIA. Ref. AM J Clin Swyqui8334;111:507-513. Serum soybean IgE antibody a ssay (units/volume)Ordered By: Aly Carlos on 09-23-2024 Soybean IgE Qn (S) <0.10 kU/L Class 0 [facility] Serum tissue transglutaminas e (tTG) IgA antibody assay (units/volume)Ordered By: Aly Carlos on 09-23-2024 tTG IgA Qn (S) <2 U/mL 0-3 [facility] Comment on above: Negative 0 - 3 Weak Positive 4 - 10 Positive >10 Tissue Transglutaminase (tTG) has been identified as the endomysial antigen. Studies have demonstr- ated that endomysial IgA antibodies have over 99% specificity for gluten sensitive enteropathy. Serum wheat IgE antibody ass ay (units/volume)Ordered By: Aly Carlos on 09-23-2024 Wheat IgE Qn (S) <0.10 kU/L Class 0 [facility] Sodium levelOrdered By: Domi Cooley on 09-23-2024 Sodium [Moles/Vol] 138 mmol/L 133-145 [facility] TSH DL <= 0.005 mIU/L QnOrde red By: Aly Carlos on 09-23-2024 TSH Qn 1.890 uIU/mL 0.300-4.20 0 [facility] Thyroid Stim Hormone (TSH)on 09-23-2024 TSH 1.890 uIU/mL Normal 0.300-4.20 0 [facility] Comment on above: Performed By: #### L 500.4050, L3100.5440, L300.3900, L503.6150, L501.6710, L3300.1200, L3100.3425, L3200.1100, L501.9520, L5500.0410, L3000.0375, L3410.2400, L3400.8000, L504.2610, L100.0100, L501.9985, L101.9900 #### [facility] [place], [address] Total proteinOrdered By: Mohsen Carlos on 09-23-2024 Protein [Mass/Vol] 6.9 g/dL 5.9-8.4 [facility] White blood cell (WBC) count Ordered By: Aly Carlos on 09-23-2024 WBC (Bld) [#/Vol] 6.9 10*3/uL 4.4-11.0 [facility] CNOVon 09-22-2024 CNOV Office Visit (ORTHWS ) CATHY CAM ([id number]) 1975 F Date Time Provider Department 09/22/24 [...] PA-C Department of Orthopaedics Orthopaedics [address] [facility] [address] Dept: [phone] Dept September 22, 2024 CHIEF COMPLAINT: Post [...] Latex This note was partially generated using [employer] voice recognition system, and there may be [...] fluticasone-salmeterol (ADVAI (more content not included)... Normal [facility] OPERATIVE NOon 09-11-2024 OPERATIVE NO HNO ID: [id number] Author: TINO NICHOLSON MD Service: Orthopaedic Surgery Author Type: Physician Type: Operative Report Filed: 09/11/2024 15:03 Note Text: OPERATIVE/PROCEDURE REPORT LOG ID: [id number] Surgery/Procedure Date: 09/11/2024 Incision/Procedure Start Time: 2:45 PM Incision Close/Procedure End Time: 2:59 PM Surgeon(s)/Procedurali st(s) and Music Journalist(s): Surgeons and Role: * Tino Nicholson MD [...] resistance. Subsequently, I selected a mini meniscotome [place] blade and slid this in the protective guide, completely dividing the transverse carpal ligament. Laine rakes were used to view up the wound to visualize for complete release and a Register elevator was used to palpate for complete [...] procedure. SIGNATURE: Tino Nicholson MD PATIENT NAME: Cathy Cam DATE: September 11, 2024 TIME: 3:03 PM PAGER/CONTACT #: Marnie [facility] Kalen 08-15-2024 SETH Telephone (INTMWS) CATHY CAM ([id number]) 1975 F Date Time Provider Department 08/15/24 JORGE MADDEN INTJenniferWS During your visit today, we recorded the following information about you: Michelle Alvarez LPN 08/15/2024 1:26 PM Signed Patient calling she saw UNDERGROUND HEAVY EQUIPMENT OPERATOR for Lyme, saw HSE SPECIALIST can not remember her name. She was told her pap test was positive for HPV. She did not understand this, this nurse advised patient to call that office back, tell them she did not understand so it could be explained to her. Jorge Madden APRN.CNP 08/15/2024 3:10 PM Signed Noted and agree, she should follow back up with corncob pipe manufacturing supervisor for her questions. Allergies As of Date: [...] been reviewed April 12, 2007 Lynda Hardin Shirt Line Operator Problem List As Of Date 08/15/2024 Noted [...] Encounter Status:Closed by JORGE MADDEN on 08/15/24 [facility] Kalen 08-14-2024 CNPN Telephone (JOSE FRANCISCO) YANIRACATHY Atkins ([id number]) 1975 F Date Time Provider Department 08/14/24 [...] Date Reviewed: 07/28/2024 Reviewed by: Jorge Madden APRN.RUBY RAILS DEVELOPER - Fully Assessed Reason for Visit: Schedule Surgery [1330] Primary Visit Diagnosis:Left carpal tunnel syndrome [G56.02] Order(s):SURGICAL REQUEST - ELECTIVE (10/2019) [0194946] Order #: [id number]: 1 Prescriptions as of 08/15/2024 - albuterol [...] been reviewed April 12, 2007 Lynda Hardin Shirt Line Operator Problem List As Of Date 08/14/2024 Noted [...] Status:Closed by KOURTNEY TODD on 08/15/24 Normal [facility] PAP IG HPV APTIMA 16/18,45on 07-31-2024 ADEQ Comment Normal . [facility] Comment on above: Order Comment: Speci men Comment: [id number] Comment: No. of containers..01 ThinPrep Vial Result Comment: Sati sfactory for evaluation. Endocervical and/or squamous metaplastic cells (endocervical component) are present. Performed By: #### L 500.4050, L3100.5440, L300.3900, L503.6150, L501.6710, L3300.1200, L3100.3425, L3200.1100, L501.9520, L5500.0410, L3000.0375, L3410.2400, L3400.8000, L504.2610, L100.0100, L501.9985, L101.9900 #### [facility] [address] [place], [place], [id number] COMM . Normal . [facility] Comment on above: Order Comment: Speci men Comment: [id number] Comment: No. of containers..01 ThinPrep Vial Performed By: #### L 500.4050, L3100.5440, L300.3900, L503.6150, L501.6710, L3300.1200, L3100.3425, L3200.1100, L501.9520, L5500.0410, L3000.0375, L3410.2400, L3400.8000, L504.2610, L100.0100, L501.9985, L101.9900 #### [facility] [address] [place], [address] COMMENT Comment Normal . [facility] Comment on above: Order Comment: Speci men Comment: [id number] Comment: No. of containers..01 ThinPrep Vial Result Comment: This liquid based ThinPrep(R) pap test was screened with the use of an image guided system. Performed By: #### L 500.4050, L3100.5440, L300.3900, L503.6150, L501.6710, L3300.1200, L3100.3425, L3200.1100, L501.9520, L5500.0410, L3000.0375, L3410.2400, L3400.8000, L504.2610, L100.0100, L501.9985, L101.9900 #### [facility] [address] [place], [address] DIAG Comment Normal . [facility] Comment on above: Order Comment: Speci men Comment: [id number] Comment: No. of containers..01 ThinPrep Vial Result Comment: NEGA TIVE FOR INTRAEPITHELIAL LESION OR MALIGNANCY. Performed By: #### L 500.4050, L3100.5440, L300.3900, L503.6150, L501.6710, L3300.1200, L3100.3425, L3200.1100, L501.9520, L5500.0410, L3000.0375, L3410.2400, L3400.8000, L504.2610, L100.0100, L501.9985, L101.9900 #### [facility] [address] [place], [address] HPV APTIMA, HR Positive Abnormal Negative [facility] Comment on above: Order Comment: Speci men Comment: [id number] Comment: No. of containers..01 ThinPrep Vial Result Comment: This nucleic acid amplification test detects fourteen high- risk HPV types (16,18,31,33,35,39,45,51,52,56,58,59,66,68) without differentiation. Performed By: #### L 500.4050, L3100.5440, L300.3900, L503.6150, L501.6710, L3300.1200, L3100.3425, L3200.1100, L501.9520, L5500.0410, L3000.0375, L3410.2400, L3400.8000, L504.2610, L100.0100, L501.9985, L101.9900 #### [facility] [address] [place], [place], [id number] (532) HPV Luann 18,45 Negative Normal Negative [facility] Comment on above: Order Comment: Speci men Comment: [id number] Comment: No. of containers..01 ThinPrep Vial Result Comment: Perf ormed at: - [address] [id number] Manager Mba: Emi Nelson MD, Phone: [phone] Performed at: = - [facility] [id number] Manager Mba: Emi Nelson MD, Phone: [phone] Performed By: #### L 500.4050, L3100.5440, L300.3900, L503.6150, L501.6710, L3300.1200, L3100.3425, L3200.1100, L501.9520, L5500.0410, L3000.0375, L3410.2400, L3400.8000, L504.2610, L100.0100, L501.9985, L101.9900 #### [facility] [address] [place], [address] HPV Luann Rfx Comment Normal . [facility] Comment on above: Order Comment: Speci men Comment: [id number] Comment: No. of containers..01 ThinPrep Vial Result Comment: Hamzah franco, see HPV Genotype results. Performed By: #### L 500.4050, L3100.5440, L300.3900, L503.6150, L501.6710, L3300.1200, L3100.3425, L3200.1100, L501.9520, L5500.0410, L3000.0375, L3410.2400, L3400.8000, L504.2610, L100.0100, L501.9985, L101.9900 #### [facility] [address] [place], [address] HPV Genotype 16 Negative Normal Negative [facility] Comment on above: Order Comment: Speci men Comment: [id number] Comment: No. of containers..01 ThinPrep Vial Performed By: #### L 500.4050, L3100.5440, L300.3900, L503.6150, L501.6710, L3300.1200, L3100.3425, L3200.1100, L501.9520, L5500.0410, L3000.0375, L3410.2400, L3400.8000, L504.2610, L100.0100, L501.9985, L101.9900 #### [facility] [address] [place], [address] PAPSMR Comment Normal . [facility] Comment on above: Order Comment: Speci men Comment: [id number] Comment: No. of containers..01 ThinPrep Vial Result [...] L3410.2400, L3400.8000, L504.2610, L100.0100, L501.9985, L101.9900 #### [facility] [address] [place], [place], [address] PERFORM Comment Normal . [facility] Comment on above: Order Comment: Speci men Comment: [id number] Comment: No. of containers..01 ThinPrep Vial Result Comment: Ashvin Nelson, Wired Music Operator (ASCP) Performed By: #### L 500.4050, L3100.5440, L300.3900, L503.6150, L501.6710, L3300.1200, L3100.3425, L3200.1100, L501.9520, L5500.0410, L3000.0375, L3410.2400, L3400.8000, L504.2610, L100.0100, L501.9985, L101.9900 #### [facility] [address] [place], [place], [address] CNPNon 07-30-2024 CNPN Telephone (INTMWS) CATHY CAM ([id number]) 1975 F Date Time Provider Department 07/30/24 JORGE MADDEN INTMWS During your visit today, we recorded the following information about you: Jennifer Amezquita, RN 07/30/2024 10:31 AM Signed [facility]- reports pt wants her US results, done recently, at [facility], faxed to Jorge. Devin Funes's office would need to have patient sign a release with Jorge's office, and the office would need to fax the release along with the request for US results, to [facility] at fax # [phone]. Asked [facility] if they could have patient sign the release and fax the results to Jorge. [facility] state they can, but they thought maybe Jorge's office already had the release, and they would have to have patient return to their office to sign the release. Teri Llanos LPN 07/30/2024 12:46 PM Signed Report printed from [place]. No need for signed release. On PCP desk for review. Jorge Madden APRN.CNP 07/30/2024 3:03 PM Signed Okay noted, reviewed it, 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 Allergies As of Date: 07/30/2024 Noted Allergy [...] Date Reviewed: 07/28/2024 Reviewed by: Jorge Madden APRN.RUBY RAILS DEVELOPER - Fully Assessed Reason for Visit: US [...] been reviewed April 12, 2007 Lynda Hardin Shirt Line Operator Problem List As Of Date 07/30/2024 Noted [...] Status:Closed by JORGE MADDEN on 07/30/24 Normal [facility] Genital Culture Comprehensiv dillon 07-29-2024 VAC Reason for Exam: pelvic pain Normal vaginal octaviano isolated. No yeast, Gardnerella, Neisseria or beta-hemolytic Streptococcus isolated. Normal [facility] Comment on above: Performed By: #### L 500.4050, L3100.5440, L300.3900, L503.6150, L501.6710, L3300.1200, L3100.3425, L3200.1100, L501.9520, L5500.0410, L3000.0375, L3410.2400, L3400.8000, L504.2610, L100.0100, L501.9985, L101.9900 #### [facility] [address] [place], [address] Pelvic w/ Transvaginalon Pelvic w/ Transvaginal [facility] Imaging Services [address] [place] [address] Pelvic w/ Transvaginal MR#: [id number] Acct: [id number] Name: CATHY CAM Rep #: [id number] : 1975 F 49 From: [facility] MD PCP: KISHAN Katz Status: REG CLI Study: Pelvic w/ Transvaginal Date of Exam: 07/29/24 Exam# [id number] Ordering Dr: Princess Blake NP HSE SPECIALIST -C PROCEDURE: PELVIC W/ TRANSVAGINAL, 07/29/2024 REASON [...] endometrial cavity. Slightly low positioning questioned by pickle maker on real-time scanning, difficult to confirm on [...] endometrial cavity. Slightly low positioning questioned by pickle maker on real-time scanning, difficult to confirm on still images obtained. Correlate with exam and consider a repeat exam with transabdominal and transvaginal cine clips as indicated. 2. Additional description as above. Reading Location: [id number] CC: KISHAN Blake; KISHAN Madden Studio Sales Associate: Signed Normal [facility] CNOVon 07-28-2024 CNOV Office Visit (INTMWS ) CATHY CAM ([id number]) 1975 F Date Time Provider Department 07/28/24 9:20 AM JORGE MADDEN INTJenniferWS During your visit today, we recorded the following information about you: Pulse Blood pressure Weight Last Period 116/minute 110/80 92 kg 07/07/24 Jorge Madden APRN.RUBY RAILS DEVELOPER 07/28/2024 9:57 AM Signed SUBJECTIVE Cathy Cam [...] Anxiety bad right now. Follow up with corncob pipe manufacturing supervisor, concerned that IUD might of fallen out. [...] and perception (more content not included)... Normal [facility] Cervical or vaginal specimen microscopic examination by liquid based cytology (reportOrdered By: Princess Blake on 07-28-2024 Cytology report Cyto stain.thin prep Doc (Cvx/Vag) Comment . [facility] Comment on above: Criteria met, see HP V Genotype results. Cervical or vagninal specime n microscopic examination by cytology stain (reported asOrdered By: Princess Blake on 07-28-2024 Cytology report Cyto stain Doc (Cvx/Vag) Comment . [facility] Comment on above: The Pap smear is a s creening test designed to aid in thedetection of premalignant and malignant conditions of theuterine cervix. It is not a diagnostic procedure andshould not be used as the sole means of detecting cervicalcancer. Both false-positive and false-negative reports dooccur. Cervical specimen Aptima HPV assayOrdered By: Princess Blake on 07-28-2024 HPV E6+E7 mRNA FLOR+probe Ql (Cvx) Negative Negative [facility] Comment on above: Performed at: WB - [facility] [address] [id number] Director: Emi Nelson MD, Phone: [phone] at: =G - [facility] [address] [id number] Director: Emi Nelson MD, Phone: [phone] Cervical specimen human amador lloma virus (HPV) type 16 DNA detection by probe with sigOrdered By: Princess Blake on 07-28-2024 HPV 16 DNA Probe+sig amp Ql (Cvx) Negative Negative [facility] Detection in cervical specim en of any of human papilloma virus (HPV) 16, 18, 31, 33,Ordered By: Princess Blake on 07-28-2024 HPV 16+18+31+33+35+39+45+51+5 2+56+58+59+66+68 DNA Probe+sig amp Ql (Cvx) Positive High Negative [facility] Comment on above: This nucleic acid am plification test detects fourteen high-risk HPV types (16,18,31,33,35,39,45,51,52,56,58,59,66,68)without differentiation. Genital cultureOrdered By: Jennifer Blake on 07-28-2024 Source specific culture Neisseria or beta-hemolytic Streptococcus isolated. [facility] Gram Stainon 07-28-2024 GS Reason for Exam: pelvic pain Gram Stain 2+ Gram positive rods 1+ Gram variable rc 2+ Gram positive cocci No Gram negative diplococci Score =3 Interpretation: 0-3 Normal, 4-6 Intermediate, 7-10 Positive BV Normal [facility] Comment on above: Performed By: #### L 500.4050, L3100.5440, L300.3900, L503.6150, L501.6710, L3300.1200, L3100.3425, L3200.1100, L501.9520, L5500.0410, L3000.0375, L3410.2400, L3400.8000, L504.2610, L100.0100, L501.9985, L101.9900 #### [facility] [address] [place], [address] Gram stainOrdered By: Princess Blake on 07-28-2024 Microscopic observation Gram stain Nom (Unsp spec) [facility] - CytologyOrdered By: Princess Blake on 07-28-2024 Wired Music Operator Cyto stain Nom (Cvx/Vag) [ID] Comment . [facility] Comment on above: Sherrie Bueno ologist (ASCP) Laboratory - Miscellaneous t estsOrdered By: Princess Blake on 07-28-2024 Service comment (Unsp spec) [Interp] . . [facility] No Panel InformationOrdered By: Princess Blake on 07-28-2024 Pap Smear Specimen Adequacy Comment . [facility] Comment on above: Satisfactory for mojgan luation. Endocervical and/or squamous metaplasticcells (endocervical component) are present. Mixed [employer] Liv[employer] Farm Worker Office Visit Reporton 07-28-2024 Mixed [employer] Farm Worker Office Visit Report [facility] [address], [address] [place] [address] OFFICE VISIT Date of Service: 07/28/24 MR#: [id number] Acct: [id number] Name: CATHY CAM Rep #: [id number] : 1975 Provider: KISHAN burton Age/Sex: 49/F [place] [facility] [place]: Signed Intake Vital Signs 01/02/23 13:10 07/28/24 11:18 Height 5 ft 5 ft Weight: 202 lb 8 oz BMI 39.5 BP 112/74 Intake Visit Reasons: vaginal odor x 1 month, bleeding and pain with IUD Precision Devices Inspector/Tester Required: No Is patient in pain?: No [...] 1 - 2 puff inhalation Q4H PRN FL N 09/28/22 07/28/24 Rx aerosol inhaler (Ventolin HFA) Wheezing ##1 venlafaxine 75 mg capsule,extended 150 mg PO DAILY 11/06/22 5 History release 24 hr Is last menstrual period known: Yes Last Menstrual Period: 06/30/24 Post menopausal: No Patient : No : No Control [facility] Kidney disease Hypothyroidism Seizures [...] Weight [facility] F[facility] Unknown Pauline Unknown Dianne [...] pap She (more content not included)... Normal [facility] CBC W Auto Differential pane l (Bld)on 06-02-2024 Basophils (Bld) [#/Vol] 10*3/uL Normal <0.11 [facility] Comment on above: Order Comment: Speci men Type: BLOOD SPECIMENOrdering Facility: [facility] Address: [address] [place] [address] Performed By: #### 5 7021-8 ####[facility] LABCLIA [id number] [address] [place] [address] [place] Basophils/100 WBC (Bld) 0.3 % Normal [facility] Comment on above: Order Comment: Speci men Type: BLOOD SPECIMENOrdering Facility: [facility] Address: [address] [place] [address] Performed By: #### 5 7021-8 ####[facility] LABCLIA [id number] [place] [address] [place] Differential cell count method Nom (Bld) Auto Normal [facility] Comment on above: Order Comment: Speci men Type: BLOOD SPECIMENOrdering Facility: [facility] Address: [address] [place] [address] Performed By: #### 5 7021-8 ####[facility] LABCLIA [id number] [place] [address] [place] Eosinophils (Bld) [#/Vol] 10*3/uL Normal <0.46 [facility] Comment on above: Order Comment: Speci men Type: BLOOD SPECIMENOrdering Facility: [facility] Address: [address] [place] [address] Performed By: #### 5 7021-8 ####[facility] LABCLIA [id number] [place] [id number] [place] Eosinophils/100 WBC (Bld) 0.0 % Normal [facility] Comment on above: Order Comment: Speci men Type: BLOOD SPECIMENOrdering Facility: [facility] Address: [address] [place] [address] Performed By: #### 5 7021-8 ####[facility]CLIA [id number] [place] [address] [place] Erythrocyte distribution width (RBC) [Ratio] 13.1 % Normal 11.5-15.0 [facility] Comment on above: Order Comment: Speci men Type: BLOOD SPECIMENOrdering Facility: [facility] Address: [address] [place] [address] Performed By: #### 5 7021-8 ####[facility] LABIA [id number] [place] [address] [place] Hematocrit (Bld) [Volume fraction] 41.6 % Normal 36.0-46.0 [facility] Comment on above: Order Comment: Speci men Type: BLOOD SPECIMENOrdering Facility: [facility] Address: [address] [place] [address] Performed By: #### 5 7021-8 ####[facility] LABIA [id number] [place] [address] [place] Hemoglobin (Bld) [Mass/Vol] 13.7 g/dL Normal 11.5-15.5 [facility] Comment on above: Order Comment: Speci men Type: BLOOD SPECIMENOrdering Facility: [facility] Address: [address] [place] [address] Performed By: #### 5 7021-8 ####[facility] LABIA [id number] [place] [address] [place] Immature granulocytes (Bld) [#/Vol] 10*3/uL Normal <0.10 [facility] Comment on above: Order Comment: Speci men Type: BLOOD SPECIMENOrdering Facility: [facility] Address: [address] [place] [address] Performed By: #### 5 7021-8 ####[facility]CLIA [id number] [place] [id number] [place] Immature granulocytes/100 WBC (Bld) 0.3 % Normal [facility] Comment on above: Order Comment: Speci men Type: BLOOD SPECIMENOrdering Facility: [facility] Address: [address] [place] [address] Performed By: #### 5 7021-8 ####[facility]CLIA [id number] [place] [address] [place] Lymphocytes (Bld) [#/Vol] 2.88 10*3/uL Normal 1.00-4.0 0 [facility] Comment on above: Order Comment: Speci men Type: BLOOD SPECIMENOrdering Facility: [facility] Address: [address] [place] [address] Performed By: #### 5 7021-8 ####[facility] LABIA [id number] [place] [address] [place] Lymphocytes/100 WBC (Bld) 37.0 % Normal [facility] Comment on above: Order Comment: Speci men Type: BLOOD SPECIMENOrdering Facility: [facility] Address: [address] [place] [address] Performed By: #### 5 7021-8 ####[facility] LABIA [id number] [place] [address] [place] MCH (RBC) [Entitic mass] 29.5 pg Normal 26.0-34.0 [facility] Comment on above: Order Comment: Speci men Type: BLOOD SPECIMENOrdering Facility: [facility] Address: [address] [place] [address] Performed By: #### 5 7021-8 ####[facility] LABIA [id number] [place] [id number] [place] MCHC (RBC) [Mass/Vol] 32.9 g/dL Normal 30.5-36.0 [facility] Comment on above: Order Comment: Speci men Type: BLOOD SPECIMENOrdering Facility: [facility] Address: [address] [place] [address] Performed By: #### 5 7021-8 ####[facility]CLIA [id number] [address] [place] [address] [place] MCV (RBC) [Entitic vol] 89.5 fL Normal 80.0-100.0 [facility] Comment on above: Order Comment: Speci men Type: BLOOD SPECIMENOrdering Facility: [facility] Address: [address] [place] [address] Performed By: #### 5 7021-8 ####[facility] LABCLIA [id number] [address], [place] [address] [place] Monocytes (Bld) [#/Vol] 0.48 10*3/uL Normal <0.87 [facility] Comment on above: Order Comment: Speci men Type: BLOOD SPECIMENOrdering Facility: [facility] Address: [address] [place] [address] Performed By: #### 5 7021-8 ####[facility]CL[facility] [id number] [place] [address] [place] Monocytes/100 WBC (Bld) 6.2 % Normal [facility] Comment on above: Order Comment: Speci men Type: BLOOD SPECIMENOrdering Facility: [facility] Address: [address] [place] [address] Performed By: #### 5 7021-8 ####[facility]CLIA [id number] [place] [address] [place] Neutrophils (Bld) [#/Vol] 4.38 10*3/uL Normal 1.45-7.5 0 [facility] Comment on above: Order Comment: Speci men Type: BLOOD SPECIMENOrdering Facility: [facility] Address: [address] [place] [address] Performed By: #### 5 7021-8 ####[facility]CL[facility] [id number] [place] [id number] [place] Neutrophils/100 WBC (Bld) 56.2 % Normal [facility] Comment on above: Order Comment: Speci men Type: BLOOD SPECIMENOrdering Facility: [facility] Address: [address] [place] [address] Performed By: #### 5 7021-8 ####[facility]CLIA [id number] [address] [place] [address] [place] Nucleated RBC (Bld) [#/Vol] 10*3/uL Normal <0.01 [facility] Comment on above: Order Comment: Speci men Type: BLOOD SPECIMENOrdering Facility: [facility] Address: [address] [place] [address] Performed By: #### 5 7021-8 ####[facility] LABIA [id number] [address], [facility] [place] Nucleated RBC/100 WBC (Bld) [Ratio] 0.0 /100 WBC Normal [facility] Comment on above: Order Comment: Speci men Type: BLOOD SPECIMENOrdering Facility: [facility] Address: [address] [place] [address] Performed By: #### 5 7021-8 ####[facility] LABIA [id number] [place] [id number] [place] Platelet mean volume (Bld) [Entitic vol] 9.8 fL Normal 9.0-12.7 [facility] Comment on above: Order Comment: Speci men Type: BLOOD SPECIMENOrdering Facility: [facility] Address: [address] [place] [address] Performed By: #### 5 7021-8 ####[facility] LABIA [id number] [place] [id number] [place] Platelets (Bld) [#/Vol] 281 10*3/uL Normal 150-400 [facility] Comment on above: Order Comment: Speci men Type: BLOOD SPECIMENOrdering Facility: [facility] Address: [address] [place] [address] Performed By: #### 5 7021-8 ####[facility] LABIA [id number] [address] [address] [place] RBC (Bld) [#/Vol] 4.65 10*6/uL Normal 3.90-5.20 [facility] Comment on above: Order Comment: Speci men Type: BLOOD SPECIMENOrdering Facility: [facility] Address: [address] [place], [place] [address] Performed By: #### 5 7021-8 ####[facility] LABIA [id number] [address] [address] [place] WBC (Bld) [#/Vol] 7.78 10*3/uL Normal 3.70-11.00 [facility] Comment on above: Order Comment: Speci men Type: BLOOD SPECIMENOrdering Facility: [facility] Address: [address] [place] [address] Performed By: #### 5 7021-8 ####[facility] LABIA [id number] [place] [id number] [facility] CNOVon 06-02-2024 CNOV Office Visit (INTMWS ) CATHY CAM ([id number]) 1975 F Date Time Provider Department 06/02/24 7:20 AM JORGE MADDEN INTMWS During your visit today, we recorded the following information about you: Pulse Blood pressure Weight Last Period 83/minute 102/78 93.5 kg 04/07/24 Jorge Madden APRN.[employer] RAILS DEVELOPER 06/02/2024 7:47 AM Signed SUBJECTIVE Cathy Milly [...] see neurology. She was planning to see [facility] but not able to get in until [...] distress. B (more content not included)... Normal [facility] Comprehensive metabolic 2000 panelon 06-02-2024 Albumin [Mass/Vol] 4.1 g/dL Normal 3.9-4.9 [facility] Comment on above: Order Comment: Speci men Type: BLOOD SPECIMENOrdering Facility: [facility] Address: [address] [place] [address] Performed By: #### 2 4323-8, 3051-0, 3024-7, 3016-3 ####[facility] LABIA [id number] [place] [id number] [place] ALP [Catalytic activity/Vol] 155 U/L High 34-123 [facility] Comment on above: Order Comment: Speci men Type: BLOOD SPECIMENOrdering Facility: [facility] Address: [address] [place] [address] Performed By: #### 2 4323-8, 3051-0, 3024-7, 3016-3 ####[facility] LABIA [id number] [place] [id number] [place] ALT [Catalytic activity/Vol] 14 U/L Normal 7-38 [facility] Comment on above: Order Comment: Speci men Type: BLOOD SPECIMENOrdering Facility: [facility] Address: [address] [place], [place] [address] Performed By: #### 2 4323-8, 3051-0, 3024-7, 3016-3 ####[facility] LABIA [id number] [address] [address] [place] Anion gap [Moles/Vol] 8 mmol/L Normal 8-15 [facility] Comment on above: Order Comment: Speci men Type: BLOOD SPECIMENOrdering Facility: [facility] Address: [address] [place] [address] Performed By: #### 2 4323-8, 3051-0, 3024-7, 3016-3 ####[facility] LABCLIA [id number] [place] [id number] [place] AST [Catalytic activity/Vol] 12 U/L Low 13-35 [facility] Comment on above: Order Comment: Speci men Type: BLOOD SPECIMENOrdering Facility: [facility] Address: [address] [place] [address] Performed By: #### 2 4323-8, 3051-0, 3024-7, 3016-3 ####[facility] LABIA [id number] [place] [id number] [place] Bilirubin [Mass/Vol] 0.3 mg/dL Normal 0.2-1.3 [facility] Comment on above: Order Comment: Speci men Type: BLOOD SPECIMENOrdering Facility: [facility] Address: [address] [place] [address] Performed By: #### 2 4323-8, 3051-0, 3023-7, 6-3 ####[facility] [id number] [place] [id number] [place] Calcium [Mass/Vol] 9.4 mg/dL Normal 8.5-10.2 [facility] Comment on above: Order Comment: Speci men Type: BLOOD SPECIMENOrdering Facility: [facility] Address: [address] [place], [place] [address] Performed By: #### 2 4323-8, 3051-0, 3024-7, 3016-3 ####[facility] LABIA [id number] [place] [id number] [place] Chloride [Moles/Vol] 102 mmol/L Normal 98-107 [facility] Comment on above: Order Comment: Speci men Type: BLOOD SPECIMENOrdering Facility: [facility] Address: [address] [place], [place] [address] Performed By: #### 2 4323-8, 3051-0, 3024-7, 6-3 ####[facility] LABCLIA [id number] [place] [id number] [place] CO2 [Moles/Vol] 27 mmol/L Normal 22-30 [facility] Comment on above: Order Comment: Speci men Type: BLOOD SPECIMENOrdering Facility: [facility] Address: [address] [place] [address] Performed By: #### 2 4323-8, 3051-0, 3024-7, 6-3 ####[facility] LABIA [id number] [place] [id number] [place] Creatinine [Mass/Vol] 0.67 mg/dL Normal 0.58-0.96 [facility] Comment on above: Order Comment: Speci men Type: BLOOD SPECIMENOrdering Facility: [facility] Address: [address] [place] [address] Performed By: #### 2 4323-8, 3051-0, 302-7, 6-3 ####[facility] LABIA [id number] [place] [address] [place] Creatinine and Glomerular filtration rate.predicted panel (S/P/Bld) 108 mL/min/1.73m??? Normal >=60 [facility] Comment on above: Order Comment: Speci men Type: BLOOD SPECIMENOrdering Facility: [facility] Address: [address] [place] [address] Result Comment: Lindsey mated Glomerular Filtration Rate [...] By: #### 2 4323-8, 3051-0, 3024-7, 6-3 ####[facility] LABCLIA [id number] [address] [address] [place] Glucose [Mass/Vol] 80 mg/dL Normal 74-99 [facility] Comment on above: Order Comment: Speci men Type: BLOOD SPECIMENOrdering Facility: [facility] Address: [address] [place] [address] Result Comment: The [place] Diabetes Association (ADA) provides guidance for cutoff [...] Standards of Medical Care in Diabetes 2016, [place] Diabetes Association. Diabetes Care. 2016.39(Suppl 1). Performed By: #### 2 4323-8, 3051-0, 3024-7, 3016-3 ####[facility] LABIA [id number] [place] [id number] [place] Potassium [Moles/Vol] 4.4 mmol/L Normal 3.7-5.1 [facility] Comment on above: Order Comment: Speci men Type: BLOOD SPECIMENOrdering Facility: [facility] Address: [address] [place] [address] Performed By: #### 2 4323-8, 3051-0, 3024-7, 3016-3 ####[facility] LABIA [id number] [place] [id number] [place] Protein [Mass/Vol] 6.8 g/dL Normal 6.3-8.0 [facility] Comment on above: Order Comment: Speci men Type: BLOOD SPECIMENOrdering Facility: [facility] Address: [address] [place] [address] Performed By: #### 2 4323-8, 3051-0, 3024-7, 3016-3 ####[facility] LABCLIA [id number] [place] [id number] [place] Sodium [Moles/Vol] 137 mmol/L Normal 136-144 [facility] Comment on above: Order Comment: Speci men Type: BLOOD SPECIMENOrdering Facility: [facility] Address: [address] [place], [place] [address] Performed By: #### 2 4323-8, 3051-0, 3024-7, 3016-3 ####[facility] LABIA [id number] [place] [id number] [place] Urea nitrogen [Mass/Vol] 9 mg/dL Normal 7-21 [facility] Comment on above: Order Comment: Speci men Type: BLOOD SPECIMENOrdering Facility: [facility] Address: [address] [place] [address] Performed By: #### 2 4323-8, 3051-0, 3024-7, 3016-3 ####[facility] LABIA [id number] [place] [id number] [place] Phenytoin SerPl-mCncon 06-02 Phenytoin [Mass/Vol] 9.8 ug/mL Low 10.0-20.0 [facility] Comment on above: Order Comment: Speci men Type: BLOOD SPECIMENOrdering Facility: [facility] Address: [address] [place], [place] [address] Result Comment: Refe rence ranges and high/low indicator flags are provided as general guidelines only. The treating physician must determine appropriate target levels/dosing based on the specific clinical situation. Performed By: #### 3 968-5 ####[facility] LABCLIA [id number] [place] [id number] [place] T3Free SerPl-mCncon 06-03-19 25 Free T3 [Mass/Vol] 2.9 pg/mL Normal 2.3-4.1 [facility] Comment on above: Order Comment: Speci anastasia Type: BLOOD SPECIMENOrdering Facility: [facility] Address: [address] [place] [address] Performed By: #### 2 4323-8, 3051-0, 3024-7, 3016-3 ####[facility] LABCLIA [id number] [place] [address] [place] T4 Free SerPl-mCncon 025 Free T4 [Mass/Vol] 1.0 ng/dL Normal 0.9-1.7 [facility] Comment on above: Order Comment: Emmanuelle oconnor Type: BLOOD SPECIMENOrdering Facility: [facility] Address: [address] [place] [address] Performed By: #### 2 4323-8, 3051-0, 3024-7, 3016-3 ####[facility] LABCLIA [id number] [place] [address] [place] TSH SerPl-aCncon 06-02-2024 TSH Qn 2.630 m[IU]/L Normal 0.270-4.20 0 [facility] Comment on above: Order Comment: Emmanuelle oconnor Type: BLOOD SPECIMENOrdering Facility: [facility] Address: [address] [place] [address] Result Comment: If t he patient is , TSH reference range varies by gestational period: First Trimester (weeks 9-12): 0.180-2.990 mIU/L Second Trimester: 0.110-3.980 mIU/L Third Trimester: 0.480-4.710 mIU/L Soren Fairchild et al. A Practical Approach for the Verifications and Determination of Site- and Trimester-Specific Reference Intervals for Thyroid Function tests in . Thyroid, 2019:29:3:412-420. Chepe Atkins et al. 2017 Guidelines of the [place] Thyroid Association for the Diagnosis and Management of Thyroid Disease during and the . Thyroid, 2017:27:3:315-389. Performed By: #### 2 4323-8, 3051-0, 3024-7, 3016-3 ####[facility] LABCLIA [id number] [place] [address] [place] Phenytoin SerPl-mCncon 05-09 Phenytoin [Mass/Vol] 9.5 ug/mL Low 10.0-20.0 [facility] Comment on above: Order Comment: Speci men Type: BLOOD SPECIMENOrdering Facility: [facility] Address: [address] [place] [address] Result Comment: Refe rence ranges and high/low indicator flags are provided as general guidelines only. The treating physician must determine appropriate target levels/dosing based on the specific clinical situation. Performed By: #### 3 968-5 ####[facility] LABCLIA [id number] [address] [place] 2024 CNPN Telephone (INTMWS) CATHY CAM ([id number]) 1975 F Date Time Provider Department 04/11/24 JORGE MADDEN INTWS During your visit today, we recorded the following information about you: Dahlia Amezquita LPN 2024 10:16 AM Signed ----- Message from Jennifer Vargas APRN.ROSE GRADER sent at 2024 7:36 AM EST ----- [...] message below from pt. TENA Linder Terri, APRN.ROSE GRADER 2024 4:27 PM Signed We can check levels in 1 month. Jennifer Agarwal APRN.ROSE GRADER 2024 4:27 PM Signed Addended by: JENNIFER [...] (HCC) [G40.909] Order(s):PHENYTOIN/DIL ANTIN [SQPHT] Order #: [id number] FUTURE Prescriptions as of 2024 - fluticasone-salmeterol [...] been reviewed today/April 12, 2007 Lynda Hardin Shirt Line Operator Problem List As Of Date 2024 Noted [...] Encounter Status:Closed by DAHLIA AMEZQUITA on 04/11/24 [facility] CNOVon 02-28-2024 CNOV Office Visit (INTMWS ) CATHY CAM ([id number]) 1975 F Date Time Provider Department 02/28/24 7:20 AM JENNIFER AGARWAL INTMWS During your visit today, we recorded the following information about you: Temperature Pulse Respiration Blood pressure 98.6 degrees 93/minute 16/minute 110/74 Weight 91.3 kg Jennifer Agarwal APRN.[facility] 02/28/2024 8:05 AM Signed SUBJECTIVE Cathy Cam [...] Abs Lymph 1.00 - 4.00 k/uL 2.84 [place]% % 5.7 Abs [place] <0.87 k/uL 0.40 [place]% % 2.0 Abs [...] (HCC) (J32.9, J40) Sinobronchitis (G40.909) Seizure disorder ([facility]) ASSESSMENT/PLAN: 1. Acute cough - ICD9: 786.2, [...] contact orthopedics to reschedule surgery. Jennifer Agarwal APRN.ROSE GRADER Medical Decision Making: Problems: Low: Acute, uncomplicated [...] seizures ERYT (more content not included)... Normal [facility] Kalen 02-28-2024 CNPN Telephone ([place]) CATHY CAM ([id number]) 1975 F Date Time Provider Department 02/28/24 TINO NICHOLSON During your visit today, we recorded the following information about you: Gris Martines LPN 02/28/2024 10:05 AM Signed Patient called. Verified name and date of . States she is not feeling well and cancelled surgery scheduled for tomorrow and needs to reschedule. TENA Galo Amy M, MA 02/29/2024 9:12 AM [...] been reviewed today/April 12, 2007 Lyndamckenzie Hardin Shirt Line Operator Problem List As Of Date 02/28/2024 Noted [...] Status:Closed by CANDIS GALLAGHER on 03/03/24 Normal [facility] Phenytoin SerPl-mCncon 02-27 Phenytoin [Mass/Vol] 5.8 ug/mL Low 10.0-20.0 [facility] Comment on above: Order Comment: Speci men Type: BLOOD SPECIMENOrdering Facility: [facility] Address: [address] [place] [address] Result Comment: Refe rence ranges and high/low indicator flags are provided as general guidelines only. The treating physician must determine appropriate target levels/dosing based on the specific clinical situation. Performed By: #### 3 968-5 ####[facility] [id number] [place] [id number] [place] Kalen 02-26-2024 CNPN Telephone (4CQ) CATHY CAM ([id number]) 1975 F Date Time Provider Department 02/26/24 JORGE MADDEN 4CQ During your visit today, we recorded the following information about you: Asuncion Castro 02/26/2024 3:43 PM Signed Pt would like to cancel her surgery 02/28 due to illness Maxine Vieira MA 02/26/2024 4:31 PM Signed Case message sent to [place] OR schedulers. Allergies As of Date: 02/26/2024 [...] been reviewed today/April 12, 2007 Lynda Hardin Shirt Line Operator Problem List As Of Date 02/26/2024 Noted [...] Encounter Status:Closed by KOURTNEY TODD on 02/29/24 [facility] Kalen 02-13-2024 CNPN Telephone (ORTHWS) CATHY CAM ([id number]) 1975 F Date Time Provider Department 02/13/24 [...] been reviewed today/April 12, 2007 Lynda Hardin Shirt Line Operator Problem List As Of Date 02/13/2024 Noted [...] Encounter Status:Closed by CANDIS GALLAGHER on [facility]/13/24 [facility] CATHY CAM ([id number]) 1975 F Date Time Provider Department 02/13/24 JOVANNI SAENZ During your visit today, we recorded the following information about you: Candis Gallagher LPN 02/13/2024 3:57 PM Signed Patient called and has a PACC appt at [facility] tomorrow but she is unable to make it to [facility] and would like to be rescheduled at the [place] location. 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] Order(s):SURGICAL REQUEST - ELECTIVE (10/2019) [[id number]] Order #: [id number]: 1 Prescriptions as of 01/31/2024 - etodolac [...] been reviewed today/April 12, 2007 Lynda Hardin Shirt Line Operator Problem List As Of Date 01/30/2024 Noted [...] Status:Closed by KOURTNEY TODD on 01/31/24 Normal [facility] CNOVon 01-28-2024 CNOV Office Visit (ORTHWS ) CATHY CAM ([id number]) 1975 F Date Time Provider Department 01/28/24 9:45 AM TINO NICHOLSON During your visit today, we recorded the following information about you: Tino Nicholson MD 01/28/2024 12:48 PM Signed Tino Nicholson MD Department of Orthopaedics Orthopaedics [address] [facility] [address] Dept: [phone] Dept January 28, 2024 CHIEF COMPLAINT: New [...] subacromial bursa Informed Consent Consent Obtained: Verbal [place] Protocol A moment to CARE was completed. [...] these instructions (more content not included)... Normal [facility] Large Joint Arthro/Inj: L whiteside bacromial bursaon 01-28-2024 Tino Nicholson MD 01/28/2024 12:48 PM Large Joint Arthro/Inj: L subacromial bursa Informed Consent Consent Obtained: Verbal [place] Protocol A moment to CARE was completed. [...] Plan [facility] Telephone (INTMWS) CATHY CAM ([id number]) 1975 F Date Time Provider Department 12/19/23 JORGE MADDEN INTWS During your visit today, we recorded the following information about you: Katia Maldonado LPN 12/19/2023 3:20 PM Signed Pt asking if pcp received the test she had done last week at [facility]. EEG? TENA Gottlieb Rosa, APRN.[facility] 12/19/2023 3:58 PM Signed Can we see if we can get EEG from [facility]? I do not have results. Jorge Madden APRN.[facility] 12/19/2023 4:17 PM Signed EEG showed no [...] been reviewed today/April 12, 2007 Lynda Hardin Shirt Line Operator Problem List As Of Date 12/19/2023 Noted [...] Encounter Status:Closed by TERI LLANOS on 12/19/23 [facility] CATHY CAM ([id number]) 1975 F Date Time Provider Department 12/19/23 JORGE MADDEN INTMWS During your visit today, we recorded the following information about you: Trey Gris 12/19/2023 3:36 PM Signed Patient transferred to [facility] to schedule orthopeadic consult. This has been completed. Patient wanted to notify PCP that [facility] neuro is scheduling out to September 2024. [...] been reviewed today/April 12, 2007 Lynda Hardin Shirt Line Operator Problem List As Of Date 12/19/2023 Noted [...] Encounter Status:Closed by GRIS YANG on 01/30/24 [facility] Kalen 11-28-2023 SETH Telephone (INTMWS) YANIRACATHY Milly ([id number]) 1975 F Date Time Provider Department 11/28/23 [...] been reviewed todayApril 12, 2007 Lynda Hardin Shirt Line Operator Problem List As Of Date 11/28/2023 Noted [...] Encounter Status:Closed by SEBASTIEN MORALES on 11/28/23 [facility] CNOVon 11-27-2023 CNOV Office Visit (INTMWS ) CATHY CAM ([id number]) 1975 F Date Time Provider Department 11/27/23 10:20 AM JORGE MADDEN INTMWS During your visit today, we recorded the following information about you: Pulse Blood pressure Weight 86/minute 84/59 91.4 kg Jorge Madden APRN.[employer]ELOPER 11/27/2023 12:07 PM Signed SUBJECTIVE Cathy Cam [...] bad. Forgetful, short term things cannot remember. residential is fine. Did not start Lamictal. Has [...] Breath sounds: (more content not included)... Normal [facility] PHENYTOIN/DILANTINon 024 Phenytoin [Mass/Vol] 14.9 ug/mL 10.0 - 20.0 ug/mL [facility] Comment on above: Reference ranges and high/low indicator flags are provided as general guidelines only. The treating physician must determine appropriate target levels/dosing based on the specific clinical situation. Phenytoin SerPl-mCncon 11-26 Phenytoin [Mass/Vol] 14.9 ug/mL Normal 10.0-20.0 [facility] Comment on above: Order Comment: Speci men Type: BLOOD SPECIMENOrdering Facility: [facility] Address: [address] [address] Result Comment: Refe rence ranges and high/low indicator flags are provided as general guidelines only. The treating physician must determine appropriate target levels/dosing based on the specific clinical situation. Performed By: #### 3 968-5 ####[facility] [id number] [facility] [id number] [place], [place] [address] [place] Phenytoin [Mass/Vol]on 11-26 Interpretation and review of laboratory results Normal [facility](NEURO/NI)on 11-23-2023 Results can be seen in attached scanned documents. If you are a patient reviewing this test result, call the doctor who ordered the test with any questions. [facility] Kalen 11-19-2023 CNPN Telephone (INTMWS) CATHY CAM ([id number]) 1975 F Date Time Provider Department 11/19/23 [...] to start taking the lamictal. Jorge Madden APRN.[employer] DEVELOPER 11/20/2023 7:48 AM Signed Yes, okay for [...] Date Reviewed: 10/19/2023 Reviewed by: Jorge Madden APRN.RU[employer] RAILS DEVELOPER - Fully Assessed Reason for Visit: Patient Question [3267] Prescriptions as of 11/21/2023 - lamoTRIgine (LAMICTAL) [...] Status:Closed by Jennifer AMEZQUITA on 11/21/23 Normal [facility] SCRN MAMM (CAD)W/JOSE BILATo n 11-05-2023 SCRN MAMM (CAD)W/JOSE BILAT [facility] Imaging Services [address] [place] [address] [id number] SCRN MAMM (CAD)W/JOSE BILAT MR#: [id number] Acct: [id number] Name: GEOTAJCATHY Milly Rep #: [id number] : 1975 F 48 From: Nick phelps MD PCP: KISHAN Katz Status: [facility] Study: SCRN MAMM (CAD)W/JOSE BILAT Date of Exam: 10/24 05/19 Exam# [id number] Ordering Dr: Jorge Madden NPC [id number] MAMMOGRAPHY - BILATERAL SCREENING REASON FOR EXAM: [...] delay biopsy of a clinically suspicious abnormality. [id number] Electronically Signed: Nick Rgugiero MD at 9:02 EDT , CC: KISHAN Madden Studio Sales Associate: Signed Normal [facility] 11-01-2023 [facility] Telephone (INTMWS) CATHY CAM ([id number]) 1975 F Date Time Provider Department 11/01/23 JORGE MADDEN During your visit today, we recorded the following information about you: Rene Pinzon RN 11/01/2023 10:44 AM Signed Pt was supposed to have a CT scan of the brain and was going to do it at [facility] on Sunday morning. She just received a call from [facility] telling her that her insurance denied it. [...] Date Reviewed: 10/19/2023 Reviewed by: Jorge Madden APRN.[employer] DEVELOPER - Fully Assessed Reason for Visit: CT [...] been reviewed todayApril 12, 2007 Lynda Hardin Shirt Line Operator Problem List As Of Date 11/01/2023 Noted [...] Encounter Status:Closed by RENE PINZON on 01/29/24 [facility] 10-22-2023 CNPN Telephone (INTMWS) GEOCATHY VANG ([id number]) 1975 F Date Time Provider Department 10/22/23 JORGE MADDEN INTMWS During your visit today, we recorded the following information about you: Jorge Madden APRN.[facility] 10/22/2023 10:17 AM Signed Please let Cathy [...] mammogram orders and send the orders to [facility]. Please advise pt when orders have been faxed. Please review order pending. TENA Linder Rosa, APRN.[facility] 10/22/2023 11:46 AM Signed Please send order, [...] Date Reviewed: 10/19/2023 Reviewed by: Jorge Madden APRN.[employer] RAILS DEVELOPER - Fully Assessed Reason for Visit: Results [95] Primary Visit Diagnosis:Screening mammogram for breast cancer [Z12.31] Order(s):[facility] SCREENING W JOSE [[id number]] Order #: [id number] FUTURE Prescriptions as of 10/22/2023 - lamoTRIgine [...] Status:Closed by TERI LLANOS on 10/22/23 Normal [facility] 25(OH)D3 [facility] 25-hydroxyvitamin D3 [Mass/Vol] 41.2 ng/mL Normal 31.0-80.0 [facility] Comment on above: Order Comment: Speci men Type: BLOOD SPECIMENOrdering Facility: [facility] Address: [address] [place] [address] Result Comment: Clas sification of 25 [place] Vitamin D status: Deficiency/Insufficiency: < or = 30 ng/ml. Sufficiency/Optimal Levels: 31-80 ng/mL Toxicity: > 100 ng/mL. Test performed by chemiluminescent immunoassay. Performed By: #### 1 989-3 ####[facility] [id number] [place] [address] [place] CBC W Auto Differential pane l (Bld)on 10-19-2023 Basophils (Bld) [#/Vol] 0.07 10*3/uL [facility] Basophils/100 WBC (Bld) 1.0 % [facility] Differential cell count method Nom (Bld) Auto [facility] Eosinophils (Bld) [#/Vol] 0.14 10*3/uL [facility] Eosinophils/100 WBC (Bld) 2.0 % [facility] Erythrocyte distribution width (RBC) [Ratio] 12.7 % 11.5 - 15.0 % [facility] Hematocrit (Bld) [Volume fraction] 43.1 % 36.0 - 46.0 % [facility] Hemoglobin (Bld) [Mass/Vol] 15.0 g/dL 11.5 - 15.5 g/dL [facility] Immature granulocytes (Bld) [#/Vol] [facility] Immature granulocytes/100 WBC (Bld) 0.1 % [facility] Lymphocytes (Bld) [#/Vol] 2.84 10*3/uL [facility] Lymphocytes/100 WBC (Bld) 40.2 % [facility] MCH (RBC) [Entitic mass] 30.8 pg 26. 0 - 34.0 pg [facility] MCHC (RBC) [Mass/Vol] 34.8 g/dL 30.5 - 36.0 g/dL [facility] MCV (RBC) [Entitic vol] 88.5 fL 80.0 - 100.0 fL [facility] Monocytes (Bld) [#/Vol] 0.40 10*3/uL [facility] Monocytes/100 WBC (Bld) 5.7 % [facility] Neutrophils (Bld) [#/Vol] 3.60 10*3/uL [facility] Neutrophils/100 WBC (Bld) 51.0 % [facility] Nucleated RBC (Bld) [#/Vol] [facility] Nucleated RBC/100 WBC (Bld) [Ratio] 0.0 % /100 WBC [facility] Platelet mean volume (Bld) [Entitic vol] 10.2 fL 9.0 - 12.7 fL [facility] Platelets (Bld) [#/Vol] 283 10*3/uL [facility] RBC (Bld) [#/Vol] 4.87 10*6/uL 3.90 - 5.20 m/uL [facility] WBC (Bld) [#/Vol] 7.06 10*3/uL [facility] Basophils (Bld) [#/Vol] 0.07 10*3/uL Normal <0.11 [facility] Comment on above: Order Comment: Speci men Type: BLOOD SPECIMENOrdering Facility: [facility] Address: [address] [place] [address] Performed By: #### 5 7021-8 ####[facility] [id number] [place] [address] [place] Basophils/100 WBC (Bld) 1.0 % Normal [facility] Comment on above: Order Comment: Speci men Type: BLOOD SPECIMENOrdering Facility: [facility] Address: [address] [place] [address] Performed By: #### 5 7021-8 ####[facility] [id number] [place] [address] [place] Differential cell count method Nom (Bld) Auto Normal [facility] Comment on above: Order Comment: Speci men Type: BLOOD SPECIMENOrdering Facility: [facility] Address: [address] [place] [address] Performed By: #### 5 7021-8 ####[facility] [id number] [place] [address] [place] Eosinophils (Bld) [#/Vol] 0.14 10*3/uL Normal <0.46 [facility] Comment on above: Order Comment: Speci men Type: BLOOD SPECIMENOrdering Facility: [facility] Address: [address] [place] [address] Performed By: #### 5 7021-8 ####[facility] [id number] [place] [address] [place] Eosinophils/100 WBC (Bld) 2.0 % Normal [facility] Comment on above: Order Comment: Speci men Type: BLOOD SPECIMENOrdering Facility: [facility] Address: [address] [place] [address] Performed By: #### 5 7021-8 ####[facility] [id number] [place] [address] [place] Erythrocyte distribution width (RBC) [Ratio] 12.7 % Normal 11.5-15.0 [facility] Comment on above: Order Comment: Speci men Type: BLOOD SPECIMENOrdering Facility: [facility] Address: [address] [place] [address] Performed By: #### 5 7021-8 ####[facility] [id number] [place] [address] [place] Hematocrit (Bld) [Volume fraction] 43.1 % Normal 36.0-46.0 [facility] Comment on above: Order Comment: Speci men Type: BLOOD SPECIMENOrdering Facility: [facility] Address: [address] [place] [address] Performed By: #### 5 7021-8 ####[facility] [id number] [place] [address] [place] Hemoglobin (Bld) [Mass/Vol] 15.0 g/dL Normal 11.5-15.5 [facility] Comment on above: Order Comment: Speci men Type: BLOOD SPECIMENOrdering Facility: [facility] Address: [address] [place] [address] Performed By: #### 5 7021-8 ####[facility] [id number] [place] [address] [place] Immature granulocytes (Bld) [#/Vol] 10*3/uL Normal <0.10 [facility] Comment on above: Order Comment: Speci men Type: BLOOD SPECIMENOrdering Facility: [facility] Address: [address] [place] [address] Performed By: #### 5 7021-8 ####[facility] [id number] [place] [address] [place] Immature granulocytes/100 WBC (Bld) 0.1 % Normal [facility] Comment on above: Order Comment: Speci men Type: BLOOD SPECIMENOrdering Facility: [facility] Address: [address] [place] [address] Performed By: #### 5 7021-8 ####[facility] [id number] [place] [address] [place] Lymphocytes (Bld) [#/Vol] 2.84 10*3/uL Normal 1.00-4.0 0 [facility] Comment on above: Order Comment: Speci men Type: BLOOD SPECIMENOrdering Facility: [facility] Address: [address] [place] [address] Performed By: #### 5 7021-8 ####[facility] [id number] [place] [address] [place] Lymphocytes/100 WBC (Bld) 40.2 % Normal [facility] Comment on above: Order Comment: Speci men Type: BLOOD SPECIMENOrdering Facility: [facility] Address: [address] [place] [address] Performed By: #### 5 7021-8 ####[facility] [id number] [place] [address] [place] MCH (RBC) [Entitic mass] 30.8 pg Normal 26.0-34.0 [facility] Comment on above: Order Comment: Speci men Type: BLOOD SPECIMENOrdering Facility: [facility] Address: [address] [place] [address] Performed By: #### 5 7021-8 ####[facility] [id number] [place] [address] [place] MCHC (RBC) [Mass/Vol] 34.8 g/dL Normal 30.5-36.0 [facility] Comment on above: Order Comment: Speci men Type: BLOOD SPECIMENOrdering Facility: [facility] Address: [address] [place] [address] Performed By: #### 5 7021-8 ####[facility] [id number] [place] [address] [place] MCV (RBC) [Entitic vol] 88.5 fL Normal 80.0-100.0 C [facility] Comment on above: Order Comment: Speci men Type: BLOOD SPECIMENOrdering Facility: [facility] Address: [address] [place] [address] Performed By: #### 5 7021-8 ####[facility] [id number] [place] [address] [place] Monocytes (Bld) [#/Vol] 0.40 10*3/uL Normal <0.87 [facility] Comment on above: Order Comment: Speci men Type: BLOOD SPECIMENOrdering Facility: [facility] Address: [address] [place] [address] Performed By: #### 5 7021-8 ####[facility] [id number] [place] [address] [place] Monocytes/100 WBC (Bld) 5.7 % Normal C [facility] Comment on above: Order Comment: Speci men Type: BLOOD SPECIMENOrdering Facility: [facility] Address: [address] [place] [address] Performed By: #### 5 7021-8 ####[facility] [id number] [place] [address] [place] Neutrophils (Bld) [#/Vol] 3.60 10*3/uL Normal 1.45-7.5 0 [facility] Comment on above: Order Comment: Speci men Type: BLOOD SPECIMENOrdering Facility: [facility] Address: [address] [place] [address] Performed By: #### 5 7021-8 ####[facility] [id number] [place] [address] [place] Neutrophils/100 WBC (Bld) 51.0 % Normal [facility] Comment on above: Order Comment: Speci men Type: BLOOD SPECIMENOrdering Facility: [facility] Address: [address] [place] [address] Performed By: #### 5 7021-8 ####[facility] LABIA [id number] [place] [address] [place] Nucleated RBC (Bld) [#/Vol] 10*3/uL Normal <0.01 [facility] Comment on above: Order Comment: Speci men Type: BLOOD SPECIMENOrdering Facility: [facility] Address: [address] [place] [address] Performed By: #### 5 7021-8 ####[facility]IA [id number] [place] [address] [place] Nucleated RBC/100 WBC (Bld) [Ratio] 0.0 /100 WBC Normal [facility] Comment on above: Order Comment: Speci men Type: BLOOD SPECIMENOrdering Facility: [facility] Address: [address] [place] [address] Performed By: #### 5 7021-8 ####[facility]IA [id number] [place] [address] [place] Platelet mean volume (Bld) [Entitic vol] 10.2 fL Normal 9.0-12.7 [facility] Comment on above: Order Comment: Speci men Type: BLOOD SPECIMENOrdering Facility: [facility] Address: [address] [place] [address] Performed By: #### 5 7021-8 ####[facility]IA [id number] [place] [address] [place] Platelets (Bld) [#/Vol] 283 10*3/uL Normal 150-400 [facility] Comment on above: Order Comment: Speci men Type: BLOOD SPECIMENOrdering Facility: [facility] Address: [address] [place] [address] Performed By: #### 5 7021-8 ####[facility] [id number] [place] [address] [place] RBC (Bld) [#/Vol] 4.87 10*6/uL Normal 3.90-5.20 [facility] Comment on above: Order Comment: Speci men Type: BLOOD SPECIMENOrdering Facility: [facility] Address: [address] [place] [address] Performed By: #### 5 7021-8 ####[facility] [id number] [place] [address] [place] WBC (Bld) [#/Vol] 7.06 10*3/uL Normal 3.70-11.00 [facility] Comment on above: Order Comment: Speci men Type: BLOOD SPECIMENOrdering Facility: [facility] Address: [address] [place] [address] Performed By: #### 5 7021-8 ####[facility] [id number] [place] [address] [place] CNOVon 10-19-2023 CNOV Office Visit (INTMWS ) CATHY CAM ([id number]) 1975 F Date Time Provider Department 10/19/23 10:20 AM JORGE MADDEN INTMWS During your visit today, we recorded the following information about you: Pulse Respiration Blood pressure Weight 64/minute 12/minute 104/80 90.7 kg Last Period 10/19/23 Jorge Madden APRN.[employer] DEVELOPER 10/19/2023 12:13 PM Signed SUBJECTIVE Cathy Milly [...] Eyes: General: (more content not included)... [facility] Tele[facility] (INTMWS) YANIRACATHY Atkins ([id number]) 1975 F Date Time Provider Department 10/19/23 [...] to starting the medications together. Jorge Madden APRN.[employer]ELOPER 10/19/2023 3:03 PM Signed Yes, please return [...] Date Reviewed: 10/19/2023 Reviewed by: Jorge Madden APRN.[employer] DEVELOPER - Fully Assessed Reason for Visit: Medication [...] Status:Closed by JENNIFER CASTILLO on 10/19/23 Normal [facility] Comprehensive metabolic 2000 panelon 10-19-2023 Albumin [Mass/Vol] 4.2 g/dL Normal 3.9-4.9 [facility] Comment on above: Order Comment: Speci men Type: BLOOD SPECIMENOrdering Facility: [facility] Address: [address] [place] [address] Performed By: #### 2 4323-8, 6-3 ####[facility] [id number] [place] [address] [place] ALP [Catalytic activity/Vol] 191 U/L High 34-123 [facility] Comment on above: Order Comment: Speci men Type: BLOOD SPECIMENOrdering Facility: [facility] Address: [address] [place] [address] Performed By: #### 2 4323-8, 3016-3 ####[facility] [id number] [place] [address] [place] ALT [Catalytic activity/Vol] 17 U/L Normal 7-38 [facility] Comment on above: Order Comment: Speci men Type: BLOOD SPECIMENOrdering Facility: [facility] Address: [address] [id number] Performed By: #### 2 4323-8, 6-3 ####[facility]CL[facility] [id number] [address] [address] [place] Anion gap [Moles/Vol] 14 mmol/L Normal 8-15 [facility] Comment on above: Order Comment: Speci men Type: BLOOD SPECIMENOrdering Facility: [facility] Address: [address] [place], [place] [id number] Performed By: #### 2 4323-8, 3015-3 ####[facility] [id number] [place] [address] [place] AST [Catalytic activity/Vol] 20 U/L Normal 13-35 [facility] Comment on above: Order Comment: Speci men Type: BLOOD SPECIMENOrdering Facility: [facility] Address: [address] [place] [address] Performed By: #### 2 4323-8, 3015-3 ####[facility] [facility] [id number] [place] [address] [place] Bilirubin [Mass/Vol] 0.3 mg/dL Normal 0.2-1.3 [facility] Comment on above: Order Comment: Speci men Type: BLOOD SPECIMENOrdering Facility: [facility] Address: [address] [id number] Performed By: #### 2 4323-8, 6-3 ####[facility] [id number] [place] [address] [place] Calcium [Mass/Vol] 9.5 mg/dL Normal 8.5-10.2 [facility] Comment on above: Order Comment: Speci men Type: BLOOD SPECIMENOrdering Facility: [facility] Address: [address] [place] [address] Performed By: #### 2 4323-8, 3016-3 ####[facility] [id number] [address] [address] [place] Chloride [Moles/Vol] 102 mmol/L Normal 98-107 [facility] Comment on above: Order Comment: Speci men Type: BLOOD SPECIMENOrdering Facility: [facility] Address: [address] [place] [address] Performed By: #### 2 4323-8, 6-3 ####[facility] [id number] [place] [address] [place] CO2 [Moles/Vol] 23 mmol/L Normal 22-30 [facility] Comment on above: Order Comment: Speci men Type: BLOOD SPECIMENOrdering Facility: [facility] Address: [address] [place] [address] Performed By: #### 2 4323-8, 6-3 ####[facility] [id number] [place] [address] [place] Creatinine [Mass/Vol] 0.59 mg/dL Normal 0.58-0.96 [facility] Comment on above: Order Comment: Speci men Type: BLOOD SPECIMENOrdering Facility: [facility] Address: [address] [place] [address] Performed By: #### 2 4323-8, 6-3 ####[facility] [id number] [address] [address] [place] Creatinine and Glomerular filtration rate.predicted panel (S/P/Bld) 112 mL/min/1.73m??? Normal >=60 [facility] Comment on above: Order Comment: Speci men Type: BLOOD SPECIMENOrdering Facility: [facility] Address: [address] [place] [address] Result Comment: Lindsey mated Glomerular Filtration Rate [...] GFR. Performed By: #### 2 4323-8, 6-3 ####[facility] [id number] [place] [address] [place] Glucose [Mass/Vol] 75 mg/dL Normal 74-99 [facility] Comment on above: Order Comment: Speci men Type: BLOOD SPECIMENOrdering Facility: [facility] Address: [address] [place] [address] Result Comment: The [place] Diabetes Association (ADA) provides guidance for cutoff [...] Standards of Medical Care in Diabetes 2016, [place] Diabetes Association. Diabetes Care. 2016.39(Suppl 1). Performed By: #### 2 4323-8, 3015-3 ####[facility] [id number] [place] [id number] [place] Potassium [Moles/Vol] 4.4 mmol/L Normal 3.7-5.1 [facility] Comment on above: Order Comment: Emmanuelle men Type: BLOOD SPECIMENOrdering Facility: [facility] Address: [address] [place] [address] Performed By: #### 2 4323-8, 3015-3 ####[facility] [id number] [place] [id number] [place] Protein [Mass/Vol] 6.9 g/dL Normal 6.3-8.0 [facility] Comment on above: Order Comment: Speci men Type: BLOOD SPECIMENOrdering Facility: [facility] Address: [address] [place] [address] Performed By: #### 2 4323-8, 3016-3 ####[facility] [id number] [place] [address] [place] Sodium [Moles/Vol] 139 mmol/L Normal 136-144 [facility] Comment on above: Order Comment: Speci men Type: BLOOD SPECIMENOrdering Facility: [facility] Address: [address] [place] [address] Performed By: #### 2 4323-8, 6-3 ####[facility] [id number] [place] [address] [place] Urea nitrogen [Mass/Vol] 6 mg/dL Low 7-21 [facility] Comment on above: Order Comment: Speci men Type: BLOOD SPECIMENOrdering Facility: [facility] Address: [address] [place] [address] Performed By: #### 2 4323-8, 6-3 ####[facility] [id number] [place] [address] [place] HbA1c (Bld)on 10-19-2023 Average glucose Estimated from glycated hemoglobin (Bld) [Mass/Vol] 100 mg/dL Normal [facility] Comment on above: Order Comment: Speci men Type: BLOOD SPECIMENOrdering Facility: [facility] Address: [address] [place] [address] Result Comment: eAG: (Estimated average glucose) is a calculated value from HgbA1c and is sales representative womens health of the average blood glucose level in the last 2-3 month period. Performed By: #### 5 5454-3 ####[facility] [id number] [address] STATES [place] [facility] HbA1c (Bld) [Mass fraction] 5.1 % Normal 4.3-5.6 [facility] Comment on above: Order Comment: Emmanuelle oconnor Type: BLOOD SPECIMENOrdering Facility: [facility] Address: [address] [place] [address] Result Comment: [place] Diabetes Association guidelines indicate that patients with HgbA1c in the range 5.7-6.4% are at increased risk for development of diabetes, and intervention by lifestyle modification may be beneficial. HgbA1c greater or equal to 6.5% is considered diagnostic of diabetes. Performed By: #### 5 5454-3 ####[facility] [id number] [address] [place] Phenytoin SerPl-mCncon 10-18 Phenytoin [Mass/Vol] 8.0 ug/mL Low 10.0-20.0 [facility] Comment on above: Order Comment: Emmanuelle oconnor Type: BLOOD SPECIMENOrdering Facility: [facility] Address: [address] [place] [address] Result Comment: Refe rence ranges and high/low indicator flags are provided as general guidelines only. The treating physician must determine appropriate target levels/dosing based on the specific clinical situation. Performed By: #### 3 968-5 ####[facility]IA [id number] [place] [address] [place] TSH SerPl-aCncon 10-19-2023 TSH Qn 2.560 m[IU]/L Normal 0.270-4.20 0 [facility] Comment on above: Order Comment: Emmanuelle oconnor Type: BLOOD SPECIMENOrdering Facility: [facility] Address: [address] [place] [address] Result Comment: If t he patient is , TSH reference range varies by gestational period: First Trimester (weeks 9-12): 0.180-2.990 mIU/L Second Trimester: 0.110-3.980 mIU/L Third Trimester: 0.480-4.710 mIU/L Soren Fairchild et al. A Practical Approach for the Verifications and Determination of Site- and Trimester-Specific Reference Intervals for Thyroid Function tests in . Thyroid, 2019:29:3:412-420. Chepe Atkins, et al. 2017 Guidelines of the [place] Thyroid Association for the Diagnosis and Management of Thyroid Disease during and the . Thyroid, 2017:27:3:315-389. Performed By: #### 2 4323-8, 3016-3 ####[facility] LABIA [id number] [place] [address] [place] lamoTRIgine SerPl-mCncon lamoTRIgine [Mass/Vol] <0.5 Low 1.0-13.0 [facility] Comment on above: Order Comment: Speci men Type: BLOOD SPECIMENOrdering Facility: [facility] Address: [address] [place] [address] Result Comment: This test was developed and its performance characteristics determined by [facility]'s [facility] Pathology and Laboratory Medicine [place] ([facility]). It has not been cleared or approved by the FDA. [facility] is regulated under CLIA as qualified to perform high-complexity testing. This test is used for clinical purposes. It should not be regarded as investigational or for research. Performed By: #### 6 948-4 ####[facility] LABIA [id number] [place] [address] [place] Head WO and W contrast IV on 09-03-2023 IMPRESSION: Nondiagnostic examination, the patient was unable to tolerate imaging. Studio Sales Associate: DELANO Transcribe Date/Time: Sep 03 2023 11:39A Dictated by : COURTNEY RAINES MD This examination was interpreted and the report reviewed and electronically signed by: COURTNEY RAINES MD on Sep 03 2023 11:41AM [facility] DIVISION OF RADIOLOGY * * *Final Report* * * DATE OF EXAM: Sep 03 2023 11:29AM [facility] 0007 - CT BRAIN WO/W IVCON / [...] skull is unremarkable. DIVISION OF RADIOLOGY Provider, [facility] - 09/03/2023 * * *Final Report* * * DATE OF EXAM: Sep 03 2023 11:29AM [facility] 0007 - CT BRAIN WO/W IVCON / [...] the patient was unable to tolerate imaging. Studio [facility] Transcribe Date/Time: Sep 03 2023 11:39A Dictated by : COURTNEY RAINES MD This examination was interpreted and the report reviewed and electronically signed by: COURTNEY RAINES MD on Sep 03 2023 11:41AM [facility] Radiology Study observation (narrative) [facility] CT Head WO and W contrast IV Ordered By: [facility] Provider on 09-03-2023 [facility] PHENYTOIN/DILANTINon 024 Phenytoin [Mass/Vol] 15.1 ug/mL 10.0 - 20.0 ug/mL [facility] Comment on above: Reference ranges and high/low indicator flags are provided as general guidelines only. The treating physician must determine appropriate target levels/dosing based on the specific clinical situation. Phenytoin [Mass/Vol]on 08-05 Interpretation and review of laboratory results Normal [place] 25-hydroxyvitamin D3 [Mass/V ol]on 07-20-2023 Interpretation and review of laboratory results Normal [place] CBC W Auto Differential pane l (Bld)on 04-26-2024 Basophils (Bld) [#/Vol] 0.08 10*3/uL [facility] Basophils/100 WBC (Bld) 1.1 % [facility] Differential cell count method Nom (Bld) Auto [facility] Eosinophils (Bld) [#/Vol] 0.26 10*3/uL [facility] Eosinophils/100 WBC (Bld) 3.6 % [facility] Erythrocyte distribution width (RBC) [Ratio] 13.2 % 11.5 - 15.0 % [facility] Hematocrit (Bld) [Volume fraction] 43.4 % 36.0 - 46.0 % [facility] Hemoglobin (Bld) [Mass/Vol] 14.0 g/dL 11.5 - 15.5 g/dL [facility] Immature granulocytes (Bld) [#/Vol] [facility] Immature granulocytes/100 WBC (Bld) 0.3 % [facility] Lymphocytes (Bld) [#/Vol] 2.94 10*3/uL [facility] Lymphocytes/100 WBC (Bld) 41.1 % [facility] MCH (RBC) [Entitic mass] 29.6 pg 26. 0 - 34.0 pg [facility] MCHC (RBC) [Mass/Vol] 32.3 g/dL 30.5 - 36.0 g/dL [facility] MCV (RBC) [Entitic vol] 91.8 fL 80.0 - 100.0 fL [facility] Monocytes (Bld) [#/Vol] 0.47 10*3/uL [facility] Monocytes/100 WBC (Bld) 6.6 % [facility] Neutrophils (Bld) [#/Vol] 3.39 10*3/uL [facility] Neutrophils/100 WBC (Bld) 47.3 % [facility] Nucleated RBC (Bld) [#/Vol] [facility] Nucleated RBC/100 WBC (Bld) [Ratio] 0.0 % /100 WBC [facility] Platelet mean volume (Bld) [Entitic vol] 10.0 fL 9.0 - 12.7 fL [facility] Platelets (Bld) [#/Vol] 300 10*3/uL [facility] RBC (Bld) [#/Vol] 4.73 10*6/uL 3.90 - 5.20 m/uL [facility] WBC (Bld) [#/Vol] 7.16 10*3/uL [facility] Comprehensive metabolic 2000 panelon 07-20-2023 Albumin [Mass/Vol] 4.0 g/dL 3.9 - 4.9 g/dL [facility] ALP [Catalytic activity/Vol] 169 U/L High 34 - 123 U/L [facility] ALT [Catalytic activity/Vol] 14 U/L 7 - 38 U/L [facility] Anion gap [Moles/Vol] 9 mmol/L 9 - 18 mmol/L [facility] AST [Catalytic activity/Vol] 15 U/L 13 - 35 U/L [facility] Bilirubin [Mass/Vol] 0.3 mg/dL 0.2 - 1 .3 mg/dL [facility] Calcium [Mass/Vol] 9.2 mg/dL 8.5 - 10. 2 mg/dL [facility] Chloride [Moles/Vol] 103 mmol/L 97 - 10 5 mmol/L [facility] CO2 [Moles/Vol] 28 mmol/L 22 - 30 mmol/L [facility] Creatinine [Mass/Vol] 0.63 mg/dL 0.58 - 0.96 mg/dL [facility] GFR/1.73 sq M.predicted among non-blacks MDRD (S/P/Bld) [Vol rate/Area] 110 mL/min/{1.73_m2} - [facility] Comment on above: Estimated Glomerular Filtration [...] [Mass/Vol] 83 mg/dL 74 - 99 mg/dL [facility] Comment on above: The [place] Diabete s Association (ADA) provides guidance for [...] Standards of Medical Care in Diabetes 2016, [place] Diabetes Association. Diabetes Care. 2016.39(Suppl 1). Interpretation and review of laboratory results Abnormal [facility] Potassium [Moles/Vol] 4.9 mmol/L 3.7 - 5.1 mmol/L [facility] Protein [Mass/Vol] 6.8 g/dL 6.3 - 8.0 g/dL [facility] Sodium [Moles/Vol] 140 mmol/L 136 - 144 mmol/L [facility] Urea nitrogen [Mass/Vol] 8 mg/dL 7 - 21 mg/dL [facility] FERRITINon 07-20-2023 Ferritin [Mass/Vol] 102.0 ng/mL 14.7 - 205.1 ng/mL [facility] HbA1c (Bld)on 07-20-2023 Average glucose Estimated from glycated hemoglobin (Bld) [Mass/Vol] 100 mg/dL [facility] Comment on above: eAG: (Estimated aver age glucose) is a calculated value from HgbA1c and is sales representative womens health of the average blood glucose level in the last 2-3 month period. HbA1c (Bld) [Mass fraction] 5.1 % 4.3 - 5.6 % [facility] Comment on above: [place] Diabetes As sociation guidelines indicate that patients with HgbA1c in the range 5.7-6.4% are at increased risk for development of diabetes, and intervention by lifestyle modification may be beneficial. HgbA1c greater or equal to 6.5% is considered diagnostic of diabetes. [facility] Iron and Iron binding capaci ty panelon 07-20-2023 Interpretation and review of laboratory results Normal [facility] Iron [Mass/Vol] 147 ug/dL 41 - 186 ug/dL [facility] Iron binding capacity [Mass/Vol] 293 ug/dL 232 - 386 ug/dL [facility] Iron/TIBC [Molar ratio] 50.2 % 15.0 - 57.0 % [facility] No Panel Informationon 07-19 Interpretation and review of laboratory results Normal [place] Interpretation and review of laboratory results Normal [facility] PHENYTOIN/DILANTINon 024 Phenytoin [Mass/Vol] 16.6 ug/mL 10.0 - 20.0 ug/mL [facility] Comment on above: Reference ranges and high/low indicator flags are provided as general guidelines only. The treating physician must determine appropriate target levels/dosing based on the specific clinical situation. Phenytoin [Mass/Vol]on 07-19 Interpretation and review of laboratory results Normal [place] T3, FREEon 07-20-2023 Free T3 [Mass/Vol] 2.5 pg/mL 2.3 - 4.1 pg/mL [facility] T4 FREE/FREE THYROXINEon Free T4 [Mass/Vol] 1.0 ng/dL 0.9 - 1.7 ng/dL [facility] THYROID STIMULATING HORMONEo n 07-20-2023 TSH Qn 2.430 m[IU]/L [facility] Comment on above: If the patient [...] Atkins, et al. 2017 Guidelines of the [place] Thyroid Association for the Diagnosis and Management of Thyroid Disease during and the . Thyroid, 2017:27:3:315-389. VITAMIN D 25 HYDROXYon 07-19 25-hydroxyvitamin D3 [Mass/Vol] 40.1 ng/mL 31.0 - 80.0 ng/mL [facility] No Panel Informationon 06-03 [facility] XR Shoulder - left 3 Viewson 04-22-2023 IMPRESSION: No acute fractures seen of the left shoulder Studio Sales Associate: DELANO Transcribe Date/Time: Apr 22 2023 5:02P Dictated by : AMENA VELEZ MD This examination was interpreted and the report reviewed and electronically signed by: AMENA VELEZ MD on Apr 22 2023 5:02PM [facility] DIVISION OF RADIOLOGY * * [...] body is seen DIVISION OF RADIOLOGY Provider, [facility] - 04/22/2023 * * *Final Report* * [...] acute fractures seen of the left shoulder Studio Sales Associate: DELANO Transcribe Date/Time: Apr 22 2023 5:02P Dictated by : AMENA VELEZ MD This examination was interpreted and the report reviewed and electronically signed by: AMENA VELEZ MD on Apr 22 2023 5:02PM EST [facility] XR Shoulder - left 3 ViewsOr dered By: [facility] Provider on 04-22-2023 [facility] XR Shoulder - left 3 Viewson 04-20-2023 Radiology Study observation (narrative) [facility] CBC W Auto Differential pane l (Bld)on 01-19-2023 Basophils (Bld) [#/Vol] 0.06 10*3/uL <0.11 k/uL [facility] Basophils/100 WBC (Bld) 0.7 % [facility] Differential cell count method Nom (Bld) Auto [facility] Eosinophils (Bld) [#/Vol] 0.24 10*3/uL <0.46 k/ uL [facility] Eosinophils/100 WBC (Bld) 3.0 % [facility] Erythrocyte distribution width (RBC) [Ratio] 13.0 % 11.5 - 15.0 % [facility] Hematocrit (Bld) [Volume fraction] 43.7 % 36.0 - 46.0 % [facility] Hemoglobin (Bld) [Mass/Vol] 14.7 g/dL 11.5 - 15.5 g/dL [facility] Immature granulocytes (Bld) [#/Vol] <0.10 k/uL [facility] Immature granulocytes/100 WBC (Bld) 0.1 % [facility] Lymphocytes (Bld) [#/Vol] 3.36 10*3/uL 1. 00 - 4.00 k/uL [facility] Lymphocytes/100 WBC (Bld) 41.6 % [facility] MCH (RBC) [Entitic mass] 30.1 pg 26. 0 - 34.0 pg [facility] MCHC (RBC) [Mass/Vol] 33.6 g/dL 30.5 - 36.0 g/dL [facility] MCV (RBC) [Entitic vol] 89.5 fL 80.0 - 100.0 fL [facility] Monocytes (Bld) [#/Vol] 0.47 10*3/uL <0.87 k/uL [facility] Monocytes/100 WBC (Bld) 5.8 % [facility] Neutrophils (Bld) [#/Vol] 3.93 10*3/uL 1. 45 - 7.50 k/uL [facility] Neutrophils/100 WBC (Bld) 48.8 % [facility] Nucleated RBC (Bld) [#/Vol] <0.01 k/uL [facility] Nucleated RBC/100 WBC (Bld) [Ratio] 0.0 /100 WBC [facility] Platelet mean volume (Bld) [Entitic vol] 9.9 fL 9.0 - 12.7 fL [facility] Platelets (Bld) [#/Vol] 351 10*3/uL 150 - 400 k/uL [facility] RBC (Bld) [#/Vol] 4.88 10*6/uL 3.90 - 5.20 m/uL [facility] WBC (Bld) [#/Vol] 8.07 10*3/uL 3.70 - 11.00 k/uL [facility] PHENYTOIN/DILANTINon 10-27-2 023 Phenytoin [Mass/Vol] 11.9 ug/mL 10.0 - 20.0 ug/mL [facility] XR CHEST 2V FRONTAL/LATon [facility] XR Chest PA and Lateralon IMPRESSION: No acute radiographic abnormality. Studio Sales Associate: DELANO Transcribe Date/Time: Dec 04 2022 8:59A Dictated by : ASUNCION BHATT MD This examination was interpreted and the report reviewed and electronically signed by: ASUNCION BHATT MD on Dec 04 2022 9:00AM [facility] DIVISION OF RADIOLOGY * * [...] soft tissues: Unremarkable. DIVISION OF RADIOLOGY Provider, [facility] - 12/04/2022 * * *Final Report* * [...] Unremarkable. IMPRESSION IMPRESSION: No acute radiographic abnormality. Studio Sales Associate: DELANO Transcribe Date/Time: Dec 04 2022 8:59A Dictated by : ASUNCION BHATT MD This examination was interpreted and the report reviewed and electronically signed by: ASUNCION BHATT MD on Dec 04 2022 9:00AM EST [facility] Radiology Study observation (narrative) [facility] XR Chest PA and LateralOrder ed By: [facility] Provider on 12-04-2022 [facility] No Panel InformationOrdered By: Nahomy Soriano on 10-23-2022 Thyroid Stimulating Hormone (TSH) 1.40 uIU/mL 0.358-3.74 [facility] Influenza virus A and B and SARS-CoV-2 (COVID-19) Ag panel - Upper respiratory specimOrdered By: Tino Brantley on 09-28-2022 SARS-CoV-2 (COVID-19) RNA FLOR+probe Ql (Resp) [facility] CT ABD/PEL W IVCONon 023 Radiology Result ACTIONABLE Abnormal [facility] PHENYTOIN/DILANTINon 023 Phenytoin [Mass/Vol] 20.5 ug/mL High 10.0 - 20.0 ug/mL [facility] CT ABDOMEN PELVIS WITH ORAL CONTRAST [...] on SunJan 20, 2022 8:44:41 AM EDT [facility] Comment on above: Order Comment: Injur [...] on SunJan 19, 2022 12:15:17 PM EDT [facility] Comment on above: Order Comment: Injur y/Trauma or Illness?:Illness/Other How long have you had these symptoms (acute/chronic)?:Acute Reason for exam?:sob; cough History of cancer?:unknown Surgeries, chemotherapy, or radiation?:unknown Type of Exam?:Initial Additional signs and symptoms?: Absolute lymphocyte counton 01-17-2022 Lymphocytes Auto (Unsp spec) [#/Vol] 5.20 10*3/uL 0.83-4.51 [facility] Work Phone: [phone] Basophil percentageon 2021 Basophils/100 WBC (Bld) 0.5 % 0-1 [facility] Work Phone: [phone] Chloride [Moles/Vol] 108 mmol/L 98-[address] [facility] [facility] Work Phone: [phone] Eosinophils/100 WBC (Bld) 2.6 % 0-5 [facility] Work Phone: [phone] Glucose [Mass/Vol] 100 mg/dL 74-106 [facility] Work Phone: Comment on above: Fasting Glucose resu lt from 100 to 125 mg/dL suggests IMPAIRED HOMEOSTASIS per A.D.A. criteria. Neutrophils (Bld) [#/Vol] 5.0 10*3/uL 2.0-7.7 [facility] Work Phone: Neutrophils/100 WBC (Bld) 44.8 % 47-70 [facility] Work Phone: Potassium [Moles/Vol] 3.6 mmol/L 3.5-5.1 [facility] Work Phone: [phone] Sodium [Moles/Vol] 139 mmol/L 136-145 [facility] Work Phone: WBC (Bld) [#/Vol] 11.2 10*3/uL 4.4-11.0 [facility] Work Phone: Beta hCG serum qualon 2021 Beta HCG ( test) Ql Negative [facility] Work Phone: Blood erythrocytes count (nu mber/volume)on 01-17-2022 RBC (Bld) [#/Vol] 4.42 10*6/uL 4.2-5.4 [facility] Work Phone: Blood hemoglobin measurement (mass/volume)on 01-17-2022 Hemoglobin (Bld) [Mass/Vol] 13.1 g/dL 12.0-15.0 [facility] Work Phone: Blood lymphocytes/100 leukoc yteson 01-17-2022 Lymphocytes/100 WBC (Bld) 46.6 % 19-41 [facility] Work Phone: Blood manual differential co mment interpretation (narrative result)on 01-17-2022 Manual differential comment Mynor (Bld) [Interp] SCANNED [facility] Work Phone: Comment on above: LYMPHOCYTOSIS NOTED Blood monocytes/100 leukocyt eson 01-17-2022 Monocytes/100 WBC (Bld) 5.2 % 0-10 [facility] Work Phone: Blood platelet mean volumeon 01-17-2022 Platelet mean volume (Bld) [Entitic vol] 10.3 fL 6.2-12.0 [facility] Work Phone: Determination of erythrocyte mean corpuscular volume (MCV)on 01-17-2022 MCV (RBC) [Entitic vol] 86.7 fL 81-99 [facility] Work Phone: Hematocrit Auto (Bld) [Volum e fraction]on 01-17-2022 Hematocrit (Bld) [Volume fraction] 38.3 % 37-47 [facility] Work Phone: Laboratory - Chemistry and C hemistry - challengeon 01-17-2022 CO2 [Moles/Vol] 25.0 mmol/L 21.0-32.0 [facility] Work Phone: Urea nitrogen/Creatinine [Mass ratio] 15.6 mg/mg 10-20 [facility] Work Phone: Laboratory - Hematology and Cell countson 01-17-2022 Erythrocyte distribution width (RBC) [Entitic vol] 39.9 fL 35.1-43.9 [facility] Work Phone: Erythrocyte distribution width (RBC) [Ratio] 12.6 % 11.6-14.6 [facility] Work Phone: Immature granulocytes/100 WBC (Bld) 0.300 % 0.0-0.9 [facility] Work Phone: Comment on above: IG% - Immature Granu locytes (promyelocytes, myelocytes and metamyelocytes) > 1% indicates that a LEFT SHIFT is Present. MCH (RBC) [Entitic mass] 29.6 pg 27.0-32.0 [facility] Work Phone: Nucleated RBC/100 WBC (Bld) [Ratio] 0 % 0-5 [facility] Work Phone: MCHC Auto (RBC) [Mass/Vol]on 01-17-2022 MCHC (RBC) [Mass/Vol] 34.2 g/dL 32-36 [facility] Work Phone: No Panel Informationon 01-17 Estimated Creatinine Clearance Calc 113.40 ml/min [facility] Work Phone: Estimated GFR (MDRD) Amer 194 mL/min >60 [facility] Work Phone: Comment on above: GFR Calc Estimated GFR (MDRD) Non-Af Amer 160 mL/min >60 [facility] Work Phone: Comment on above: Non- GFR Calc Ethyl Alcohol Level < 3.0 mg/dL [facility] Work Phone: Comment on above: The serum:whole bloo d ethanol ratio is approximately 1.14and varies slightly with hematocrit. Medical Alcohol reference interval and critical value innon-tolerant individuals; 50 - 100 Impairment 100 Intoxication 100 - 250 Severe Poisoning 250 - 400 Deep/possible fatal coma Platelets bldon 01-17-2022 Platelets (Bld) [#/Vol] 274 10*3/uL 150-450 [facility] Work Phone: Serum or plasma calcium binh urement (mass/volume)on 01-17-2022 Calcium [Mass/Vol] 8.7 mg/dL 8.5-10.1 [facility] Work Phone: Serum or plasma creatinine m easurement (mass/volume)on 01-17-2022 Creatinine [Mass/Vol] 0.45 mg/dL 0.55-1.02 [facility] Work Phone: Comment on above: The validity of the calculated GFR & GFRAA in patients over 70 years has not been determined. Clinical correlation is essential. Serum or plasma urea nitroge n measurement (mass/volume)on 01-17-2022 Urea nitrogen [Mass/Vol] 7 mg/dL 7-18 [facility] Work Phone: Thin prep Papanicolaou smear with manual screeningon 01-17-2022 Thin prep Papanicolaou smear with manual screening 6 5-15 [facility] Work Phone: Laboratory - Drug toxicology on 01-16-2022 Amphetamines Ql (U) Negative <1000 ng/mL [facility] Work Phone: Benzodiazepines Ql (U) Negative < 200 ng/mL [facility] Work Phone: Cannabinoids Screen Ql (U) Negative < 50 ng/mL [facility] Work Phone: Cocaine Ql (U) Negative < 300 ng/mL [facility] Work Phone: Opiates Ql (U) Negative < 300 ng/mL [facility] Work Phone: No Panel Informationon 01-16 MDMA (Ecstasy) Screen Negative < 500 ng/mL [facility] Work Phone: Urine Barbiturates Screen Negative < 200 ng/mL [facility] Work Phone: Urine Drug Screen Comment [facility] Work Phone: Comment on above: CONFIRMATORY TESTING [...] Urine Methadone Screen Negative < 300 ng/mL [facility] Work Phone: Urine phencyclidine (PCP) de tectionon 01-16-2022 Phencyclidine Ql (U) Negative < 25 ng/mL [facility] Work Phone: Absolute lymphocyte counton 01-10-2022 Lymphocytes Auto (Unsp spec) [#/Vol] 2.12 10*3/uL 0.83-4.51 [facility] Work Phone: Basophil percentageon 2021 Basophils/100 WBC (Bld) 0.7 % 0-1 [facility] Work Phone: Bilirubin [Mass/Vol] 0.30 mg/dL 0.20-1.00 [facility] Work Phone: Comment on above: For patients on eltr ombopag therapy, use of Dimension [place] TBIL is not recommended. Chloride [Moles/Vol] 106 mmol/L 98-107 [facility] Work Phone: Eosinophils/100 WBC (Bld) 1.3 % 0-5 [facility] Work Phone: Glucose [Mass/Vol] 106 mg/dL 74-106 [facility] Work Phone: Comment on above: Fasting Glucose resu lt from 100 to 125 mg/dL suggests IMPAIRED HOMEOSTASIS per A.D.A. criteria. Neutrophils (Bld) [#/Vol] 6.0 10*3/uL 2.0-7.7 [facility] Work Phone: Neutrophils/100 WBC (Bld) 67.6 % 47-70 [facility] Work Phone: Potassium [Moles/Vol] 3.4 mmol/L 3.5-5.1 [facility] Work Phone: Protein [Mass/Vol] 7.3 g/dL 6.4-8.2 [facility] Work Phone: Sodium [Moles/Vol] 140 mmol/L 136-145 [facility] Work Phone: WBC (Bld) [#/Vol] 8.9 10*3/uL 4.4-11.0 [facility] Work Phone: Basophil percentage 5-10 SEEN /hpf 0-5 [facility] Work Phone: [phone] Beta hCG serum qualon 2021 Beta HCG ( test) Ql Negative [facility] Work Phone: Bilirubin Test strip Ql (U)o n 01-10-2022 Bilirubin Ql (U) Negative Negative [facility] Work Phone: Blood erythrocytes count (nu mber/volume)on 01-10-2022 RBC (Bld) [#/Vol] 4.92 10*6/uL 4.2-5.4 [facility] Work Phone: Blood hemoglobin measurement (mass/volume)on 01-10-2022 Hemoglobin (Bld) [Mass/Vol] 14.7 g/dL 12.0-15.0 [facility] Work Phone: Blood lymphocytes/100 leukoc yteson 01-10-2022 Lymphocytes/100 WBC (Bld) 23.8 % 19-41 [facility] Work Phone: Blood monocytes/100 leukocyt eson 01-10-2022 Monocytes/100 WBC (Bld) 6.3 % 0-10 [facility] Work Phone: Blood platelet mean volumeon 01-10-2022 Platelet mean volume (Bld) [Entitic vol] 10.3 fL 6.2-12.0 [facility] Work Phone: Determination of erythrocyte mean corpuscular volume (MCV)on 01-10-2022 MCV (RBC) [Entitic vol] 87.4 fL 81-99 [facility] Work Phone: Hematocrit Auto (Bld) [Volum e fraction]on 01-10-2022 Hematocrit (Bld) [Volume fraction] 43.0 % 37-47 [facility] Work Phone: Ketones Test strip Ql (U)on 01-10-2022 Ketones Ql (U) Negative Negative [facility] Work Phone: Laboratory - Chemistry and C hemistry - challengeon 01-10-2022 ALP [Catalytic activity/Vol] 159 U/L 45-117 [facility] Work Phone: ALT [Catalytic activity/Vol] 21 U/L 13-56 [facility] Work Phone: CO2 [Moles/Vol] 29.0 mmol/L 21.0-32.0 [facility] Work Phone: Globulin (S) [Mass/Vol] 3.8 g/dL 2.2-4.2 [facility] Work Phone: Urea nitrogen/Creatinine [Mass ratio] 8.0 mg/mg 10-20 [facility] Work Phone: Laboratory - Drug toxicology on 01-10-2022 Amphetamines Ql (U) Negative <1000 ng/mL [facility] Work Phone: Benzodiazepines Ql (U) Negative < 200 ng/mL [facility] Work Phone: Cannabinoids Screen Ql (U) Negative < 50 ng/mL [facility] Work Phone: Cocaine Ql (U) Negative < 300 ng/mL [facility] Work Phone: Opiates Ql (U) Negative < 300 ng/mL [facility] Work Phone: Laboratory - Hematology and Cell countson 01-10-2022 Erythrocyte distribution width (RBC) [Entitic vol] 40.1 fL 35.1-43.9 [facility] Work Phone: Erythrocyte distribution width (RBC) [Ratio] 12.6 % 11.6-14.6 [facility] Work Phone: Immature granulocytes/100 WBC (Bld) 0.300 % 0.0-0.9 [facility] Work Phone: Comment on above: IG% - Immature Granu locytes (promyelocytes, myelocytes and metamyelocytes) > 1% indicates that a LEFT SHIFT is Present. MCH (RBC) [Entitic mass] 29.9 pg 27.0-32.0 [facility] Work Phone: Nucleated RBC/100 WBC (Bld) [Ratio] 0 % 0-5 [facility] Work Phone: MCHC Auto (RBC) [Mass/Vol]on 01-10-2022 MCHC (RBC) [Mass/Vol] 34.2 g/dL 32-36 [facility] Work Phone: Mucus LM Ql (Urine sed)on Mucus Ql (Urine sed) 0 SEEN /hpf [facility] Work Phone: Nitrite Test strip Ql (U)on 01-10-2022 Nitrite Ql (U) Negative Negative [facility] Work Phone: No Panel Informationon 01-10 Estimated Creatinine Clearance Calc 82.31 ml/min [facility] Work Phone: Estimated GFR (MDRD) Amer 132 mL/min >60 [facility] Work Phone: Comment on above: GFR Calc Estimated GFR (MDRD) Non-Af Amer 109 mL/min >60 [facility] Work Phone: Comment on above: Non- GFR Calc Ethyl Alcohol Level < 3.0 mg/dL [facility] Work Phone: Comment on above: The serum:whole bloo d ethanol ratio is approximately 1.14and varies slightly with hematocrit. Medical Alcohol reference interval and critical value innon-tolerant individuals; 50 - 100 Impairment 100 Intoxication 100 - 250 Severe Poisoning 250 - 400 Deep/possible fatal coma MDMA (Ecstasy) Screen Negative < 500 ng/mL [facility] Work Phone: Urine Barbiturates Screen Negative < 200 ng/mL [facility] Work Phone: Urine Drug Screen Comment [facility] Work Phone: Comment on above: CONFIRMATORY TESTING [...] Urine Methadone Screen Negative < 300 ng/mL [facility] Work Phone: Platelets bldon 01-10-2022 Platelets (Bld) [#/Vol] 296 10*3/uL 150-450 [facility] Work Phone: Protein Test strip Ql (U)on 01-10-2022 Protein Ql (U) 15 mg/dl Negative [facility] Work Phone: Serum or plasma albumin binh urement (mass/volume)on 01-10-2022 Albumin [Mass/Vol] 3.5 g/dL 3.2-5.0 [facility] Work Phone: Serum or plasma albumin/glob ulin mass ratioon 01-10-2022 Albumin/Globulin [Mass ratio] 0.9 {ratio} 0.9-2.4 [facility] Work Phone: Serum or plasma calcium binh urement (mass/volume)on 01-10-2022 Calcium [Mass/Vol] 9.1 mg/dL 8.5-10.1 [facility] Work Phone: Serum or plasma creatinine m easurement (mass/volume)on 01-10-2022 Creatinine [Mass/Vol] 0.62 mg/dL 0.55-1.02 [facility] Work Phone: Comment on above: The validity of the calculated GFR & GFRAA in patients over 70 years has not been determined. Clinical correlation is essential. Serum or plasma urea nitroge n measurement (mass/volume)on 01-10-2022 Urea nitrogen [Mass/Vol] 5 mg/dL - [facility] Work Phone: Squamous epithelial cells de tection in urine sediment by light microscopyon 01-10-2022 Epithelial cells.squamous LM Ql (Urine sed) 5-10 SEEN /hpf 5-10 [facility] Work Phone: Thin prep Papanicolaou smear with manual screeningon 01-10-2022 Thin prep Papanicolaou smear with manual screening 13 U/L 15-37 [facility] Work Phone: Thin prep Papanicolaou smear with manual screening 5 5-15 [facility] Work Phone: Urine blood detectionon 12-24 RBC Ql (U) 25 /ul Negative [facility] Work Phone: RBC Ql (U) 5-10 SEEN /hpf 0-5 [facility] Work Phone: Urine clarityon 01-10-2022 Clarity (U) Sl. Cloudy Clear [facility] Work Phone: Urine color determinationon 01-10-2022 Color (U) Yellow Yellow [facility] Work Phone: Urine glucose detectionon Glucose Ql (U) Normal mg/dl Normal [facility] Work Phone: Urine leukocyte esterase det ection by dipstickon 01-10-2022 Leukocyte esterase Test strip Ql (U) 25 /ul Negative [facility] Work Phone: Urine pHon 01-10-2022 pH (U) 7.0 [pH] 5.0 - 8.0 [facility] Work Phone: Urine phencyclidine (PCP) de tectionon 01-10-2022 Phencyclidine Ql (U) Negative < 25 ng/mL [facility] Work Phone: Urine sediment bacteria coun t by microscopy (number/high power field)on 01-10-2022 Bacteria LM.HPF (Urine sed) [#/Area] 2 /[HPF] None Seen [facility] Work Phone: Urine specific gravity measu rementon 01-10-2022 Specific gravity (U) [Rel density] 1.010 1.002-1.03 0 [facility] Work Phone: Urobilinogen Auto test strip Ql (U)on 01-10-2022 Urobilinogen Ql (U) Normal mg/dl Normal [facility] Work Phone: CVFLURVon 10-25-2021 Date of Onset [id number] Invalid Interpretation Code [facility] ([place]) Comment on above: Performed By: #### C K, CMP, GFR, TROPHS, ERDS #### [place] [address] Employed in Healthcare No [facility] ([place]) Comment on above: Performed By: #### C K, CMP, GFR, TROPHS, ERDS #### [place] [address] First Test No [facility] ([place]) Comment on above: Performed By: #### C K, CMP, GFR, TROPHS, ERDS #### [place] [address] FLU A PCR Negative Normal Negative [facility] ([place]) Comment on above: Result Comment: [place] [id number] Performed By: #### C K, CMP, GFR, TROPHS, ERDS #### [place] [address] FLU B PCR Negative Normal Negative [facility] ([place]) Comment on above: Result Comment: [place] s [id number] Performed By: #### C K, CMP, GFR, TROPHS, ERDS #### [place] [address] Hospitalized No [facility] ([place] Comment on above: Performed By: #### C K, CMP, GFR, TROPHS, ERDS #### [address] [address] ICU No Normal [facility] ([place]) Comment on above: Performed By: #### C K, CMP, GFR, TROPHS, ERDS #### [address] [address] Not Normal [facility] ([place]) Comment on above: Performed By: #### C K, CMP, GFR, TROPHS, ERDS #### [place] [address] Resides in Congregate Care Setting No [facility] ([place] Comment on above: Performed By: #### C K, CMP, GFR, TROPHS, ERDS #### [place] [address] RSV PCR Negative Normal Negative [facility] ([place]) Comment on above: Result Comment: [place] [id number] Performed By: #### C K, CMP, GFR, TROPHS, ERDS #### [place] [address] SARS-CoV-2 (COVID-19) RNA FLOR+probe Ql (Unsp spec) Negative Normal Negative [facility] ([place]) Comment on above: Result Comment: [place] [id number] This test has been authorized by FDA [...] C K, CMP, GFR, ADOLPH, GIANFRANCOS #### [address] [address] Symptomatic as Defined by CDC No Normal [facility] ([place]) Comment on above: Performed By: #### C K, CMP, GFR, CRISTIANS, ERDS #### [address] [address] LABORATORYOrdered By: Altagracia Lindo on 10-25-2021 Date [...] Comment on above: Result Comment: [place] [id number] FLU B PCR Negative 8 (10/25/21 11:26 AM) Invalid Interpretation Code Negative [facility] Comment on above: [place]: [place] [id number] Hospitalized No (10/25/21 11:26 AM) Invalid Interpretation [...] Comment on above: Result Comment: Note s [id number] SARS-CoV-2 (COVID-19) RNA FLOR+probe Ql (Unsp spec) Negative 4 (10/25/21 11:26 AM) Invalid Interpretation Code Negative [facility] Comment on above: Result Comment: [place] [id number] Symptomatic as Defined by CDC No (10/25/21 11:26 AM) Invalid Interpretation Code [facility] SS LABORATORYOrdered By: Mee Carter on 10-21-2021 Beta HCG ( test) Ql (U) Negative (10/21/21 6:14 PM) [facility] .Auto Diffon 10-16-2021 Basophil, Absolute 0.1 10 3/mcL Normal 0.0-0.3 [facility] ([place]) Comment on above: Performed By: #### C K, CMP, GFR, TROPHS, ERDS #### [address] [address] Basophils/100 WBC (Bld) 0.6 % Normal 0.0-2.5 A [facility] ([place]) Comment on above: Performed By: #### C K, CMP, GFR, TROPHS, ERDS #### [address] [address] Eosinophil, Absolute 0.3 10 3/mcL Normal 0.0-0.7 [facility] ([place]) Comment on above: Performed By: #### C K, CMP, GFR, TROPHS, ERDS #### [address] [address] Eosinophils/100 WBC (Bld) 1.8 % Normal 0.0-6.0 [facility] ([place]) Comment on above: Performed By: #### C K, CMP, GFR, TROPHS, ERDS #### [address] [address] Lymphocyte, Absolute 3.3 10 3/mcL Normal 0.9-4.3 [facility] ([place]) Comment on above: Performed By: #### C K, CMP, GFR, TROPHS, ERDS #### [address] [address] Lymphocytes/100 WBC (Bld) 20.4 % Normal 20.0-40.0 [facility] ([place]) Comment on above: Performed By: #### C K, CMP, GFR, TROPHS, ERDS #### [address] [address] Monocyte, Absolute 1.0 10 3/mcL Normal 0.1-1.4 [facility] ([place]) Comment on above: Performed By: #### C K, CMP, GFR, TROPHS, ERDS #### [address] [address] Monocytes/100 WBC (Bld) 6.1 % Normal 2.0-13.0 A [facility] ([place]) Comment on above: Performed By: #### C K, CMP, GFR, TROPHS, ERDS #### [address] [address] Neutrophils/100 WBC (Bld) 71.1 % Normal 50.0-75.0 [facility] ([place]) Comment on above: Performed By: #### C K, CMP, GFR, TROPHS, ERDS #### [address] [address] .GFRon 10-16-2021 GFR >60 Normal [facility] ([place]) Comment on above: Result Comment: GFR Population [...] C K, CMP, GFR, TROPHS, ERDS #### [address] [address] GFR Non- >60 Normal [facility] ([place]) Comment on above: Result Comment: GFR Population [...] C K, CMP, GFR, TROPHS, ERDS #### [address] [address] .MDWon 10-16-2021 Monocyte Distribution Width 16.83 Normal 0.00-20.00 [facility] ([place]) Comment on above: Result Comment: For ED adult patients suspected of sepsis, MDW<=20.0 does not rule out sepsis or risk of sepsis Performed By: #### C K, CMP, GFR, TROPHS, ERDS #### [place] [address] .NEUABSon 10-16-2021 Neutrophil, Absolute 11.6 10 3/mcL High 2.3-8.1 A [facility] ([place]) Comment on above: Performed By: #### C K, CMP, GFR, TROPHS, ERDS #### [place] [address] CBCon 10-16-2021 Erythrocyte distribution width (RBC) [Ratio] 13.5 % Normal 11.5-15.5 [facility] ([place]) Comment on above: Performed By: #### C K, CMP, GFR, TROPHS, ERDS #### [place] [address] Hematocrit (Bld) [Volume fraction] 41.7 % Normal 34.0-46.0 [facility] ([place]) Comment on above: Performed By: #### C K, CMP, GFR, TROPHS, ERDS #### [place] [address] Hgb 14.2 G/dL Normal 12.0-16.0 [facility] ([place]) Comment on above: Performed By: #### C K, CMP, GFR, TROPHS, ERDS #### [place] [address] MCH (RBC) [Entitic mass] 29.5 pg Normal 27.0-33.0 [facility] ([place]) Comment on above: Performed By: #### C K, CMP, GFR, TROPHS, ERDS #### [place] [address] MCHC 34.0 G/dL Normal 32.0-36.0 [facility] ([place]) Comment on above: Performed By: #### C K, CMP, GFR, TROPHS, ERDS #### [place] [address] MCV (RBC) [Entitic vol] 86.8 fL Normal 80.0-99.0 [facility] ([place]) Comment on above: Performed By: #### C K, CMP, GFR, TROPHS, ERDS #### [place] [address] Platelet 306 10 3/mcL Normal 150-450 [facility] ([place]) Comment on above: Performed By: #### C K, CMP, GFR, TROPHS, ERDS #### [place] [address] Platelet mean volume (Bld) [Entitic vol] 7.6 fL Normal 6.6-10.5 [facility] ([place]) Comment on above: Performed By: #### C K, CMP, GFR, TROPHS, ERDS #### [place] [address] RBC 4.80 10 6/mcL Normal 4.10-5.30 [facility] ([place]) Comment on above: Performed By: #### C K, CMP, GFR, TROPHS, ERDS #### [place] [address] WBC 16.3 10 3/mcL High 4.5-10.8 [facility] ([place]) Comment on above: Performed By: #### C K, CMP, GFR, TROPHS, ERDS #### [place] [address] CKon 10-16-2021 CK [Catalytic activity/Vol] 88 U/L Normal 7-185 [facility] ([place]) Comment on above: Result Comment: Spec imen slightly hemolyzed. Performed By: #### C K, CMP, GFR, TROPHS, ERDS #### [address] [address] CMPon 10-16-2021 Albumin Level 3.7 G/dL Normal 3.2-4.8 [facility] ([place]) Comment on above: Performed By: #### C K, CMP, GFR, TROPHS, ERDS #### [address] [address] Albumin/Globulin [Mass ratio] 1.1 {ratio} Normal 0.9-1.6 [facility] ([place]) Comment on above: Performed By: #### C K, CMP, GFR, TROPHS, ERDS #### [place] [id number] ALP [Catalytic activity/Vol] 142 U/L High 38-126 [facility] ([place]) Comment on above: Performed By: #### C K, CMP, GFR, TROPHS, ERDS #### [place] [id number] ALT [Catalytic activity/Vol] 20 U/L Normal 10-49 [facility] ([place]) Comment on above: Performed By: #### C K, CMP, GFR, TROPHS, ERDS #### [place] [id number] AST [Catalytic activity/Vol] 21 U/L Normal 8-34 [facility] ([place]) Comment on above: Performed By: #### C K, CMP, GFR, TROPHS, ERDS #### [place] [id number] Bili Total 0.30 mg/dL Normal 0.20-1.20 [facility] ([place]) Comment on above: Result Comment: Use of this assay is not recommended for patients undergoing treatment with eltrombopag due to the potential for falsely elevated results. Performed By: #### C K, CMP, GFR, TROPHS, ERDS #### [address] [address] BUN/Creatinine Ratio 13.1 ratio Normal 10.0-22.0 [facility] ([place]) Comment on above: Performed By: #### C K, CMP, GFR, TROPHS, ERDS #### [address] [address] Calcium [Mass/Vol] 9.4 mg/dL Normal 8.7-10.4 [facility] ([place]) Comment on above: Performed By: #### C K, CMP, GFR, TROPHS, ERDS #### [address] [address] Chloride [Moles/Vol] 111 mmol/L High 98-110 [facility] ([place]) Comment on above: Performed By: #### C K, CMP, GFR, TROPHS, ERDS #### [address] [address] CO2 [Moles/Vol] 27 mmol/L Normal 22-32 [facility] ([place]) Comment on above: Performed By: #### C K, CMP, GFR, TROPHS, ERDS #### [place] [id number] Creatinine [Mass/Vol] 0.61 mg/dL Normal 0.50-1.20 [facility] ([place]) Comment on above: Performed By: #### C K, CMP, GFR, TROPHS, ERDS #### [address] [address] Electrolyte Balance 2.0 mEq/L Low 4.0-15.0 [facility] ([place]) Comment on above: Performed By: #### C K, CMP, GFR, TROPHS, ERDS #### [address] [address] Globulin 3.4 G/dL Normal 1.5-3.8 [facility] ([place]) Comment on above: Performed By: #### C K, CMP, GFR, TROPHS, ERDS #### [place] [id number] Glucose [Mass/Vol] 90 mg/dL Normal 70-110 [facility] ([place]) Comment on above: Performed By: #### C K, CMP, GFR, TROPHS, ERDS #### [place] [address] Potassium [Moles/Vol] 4.5 mmol/L Normal 3.5-5.0 [facility] ([place]) Comment on above: Result Comment: Spec imen slightly hemolyzed. Performed By: #### C K, CMP, GFR, TROPHS, ERDS #### [place] [address] Sodium [Moles/Vol] 140 mmol/L Normal 136-145 [facility] ([place]) Comment on above: Performed By: #### C K, CMP, GFR, TROPHS, ERDS #### [place] [address] Total Protein 7.1 G/dL Normal 5.7-8.2 [facility] ([place]) Comment on above: Result Comment: No te - New Reference Range in effect 19 Performed By: #### C K, CMP, GFR, TROPHS, ERDS #### [place] [address] Urea nitrogen [Mass/Vol] 8.0 mg/dL Normal 8.0-22.0 [facility] ([place]) Comment on above: Performed By: #### C K, CMP, GFR, TROPHS, ERDS #### [place] [id number] CVFLURVon 10-16-2021 Date of Onset [id number] Invalid Interpretation Code [facility] ([place]) Comment on above: Performed By: #### C K, CMP, GFR, TROPHS, ERDS #### [place] [id number] Employed in Healthcare No [facility] ([place]) Comment on above: Performed By: #### C K, CMP, GFR, TROPHS, ERDS #### [place] [id number] First Test No [facility] ([place]) Comment on above: Performed By: #### C K, CMP, GFR, TROPHS, ERDS #### [place] [address] FLU A PCR Negative Normal Negative [facility] ([place]) Comment on above: Result Comment: [place] s [id number] Performed By: #### C K, CMP, GFR, TROPHS, ERDS #### [place] [address] FLU B PCR Negative Normal Negative [facility] ([place]) Comment on above: Result Comment: [place] [id number] Performed By: #### C K, CMP, GFR, TROPHS, ERDS #### [place] [address] Hospitalized Unknown Normal [facility] ([place]) Comment on above: Performed By: #### C K, CMP, GFR, TROPHS, ERDS #### [place] [address] ICU No Normal [facility] ([place]) Comment on above: Performed By: #### C K, CMP, GFR, TROPHS, ERDS #### [place] [address] Not [facility] ([place]) Comment on above: Performed By: #### C K, CMP, GFR, TROPHS, ERDS #### [place] [address] Resides in Congregate Care Setting Unknown Normal [facility] ([place]) Comment on above: Performed By: #### C K, CMP, GFR, TROPHS, ERDS #### [place] [address] RSV PCR Negative Normal Negative [facility] ([place]) Comment on above: Result Comment: [place] [id number] Performed By: #### C K, CMP, GFR, TROPHS, ERDS #### [place] [address] SARS-CoV-2 (COVID-19) RNA FLOR+probe Ql (Unsp spec) Positive Abnormal Negative [facility] ([place]) Comment on above: Result Comment: This organism causes a reportable disease. Infection Control has been notified. Results have been reported to the [facility]. Notes [id number] This test has been authorized by FDA [...] CMP, GFR, TROPHS, ERDS #### [place] [address] Symptomatic as Defined by CDC No Normal [facility] ([place]) Comment on above: Performed By: #### C K, CMP, GFR, TROPHS, ERDS #### [address] 10-16-2021 Acetaminophen [Mass/Vol] ug/mL Low 10.0-20.0 [facility] ([place]) Comment on above: Performed By: #### C K, CMP, GFR, TROPHS, ERDS #### [place] [address] ER Drug Screen (s) Negative Normal [facility] ([place]) Comment on above: Performed By: #### C K, CMP, GFR, TROPHS, ERDS #### [place] [address] ER Drug Screen Interp Serum shows no evidence of drugs routinely screened Invalid Interpretation Code [facility] ([place]) Comment on above: Performed By: #### C K, CMP, GFR, TROPHS, ERDS #### [place] [address] ER Serum Drugs Screened: See Below Normal [facility] ([place]) Comment on above: Result Comment: This drug screen is a presumptive screening only. No confirmation will be performed unless requested. Drugs included in the ER serum drug screen are: Threshold Ethanol 10.0 mg/dL Salicylate 2.0 mg/dL Acetaminophen 2.0 mcg/mL Tricyclic Antidepressants 300 ng/mL Testing has been performed FOR MEDICAL PURPOSES ONLY. Performed By: #### C K, CMP, GFR, TROPHS, ERDS #### [place] [address] Ethanol Level <10.0 Normal [facility] ([place]) Comment on above: Performed By: #### C K, CMP, GFR, TROPHS, ERDS #### [place] [address] Salicylate Lvl (ds) <3.0 Low 10.0-25.0 [facility] ([place]) Comment on above: Performed By: #### C K, CMP, GFR, TROPHS, ERDS #### [place] [address] TCA (s) Negative Normal [facility] ([place]) Comment on above: Performed By: #### C K, CMP, GFR, TROPHS, ERDS #### [place] [address] LABORATORYOrdered By: La Bahena on 10-16-2021 Date [...] Comment on above: Result Comment: [place] [id number] FLU B PCR Negative 9 (10/16/21 8:36 AM) Invalid Interpretation Code Negative AH [facility]Sero SS Comment on above: Result Comment: Note s [id number] Hospitalized Unknown (10/16/21 8:36 AM) Invalid Interpretation [...] Comment on above: Result Comment: [place] s [id number] SARS-CoV-2 (COVID-19) RNA FLOR+probe Ql (Unsp spec) Positive 5 *ABN* (10/16/21 8:36 AM) Invalid Interpretation Code Negative AH [facility] Viro/Sero SS Comment on above: Result Comment: This organism causes a reportable disease. Infection Control has been notified. Results have been reported to the [facility]. Notes [id number] Symptomatic as Defined by CDC No (10/16/21 [...] Code 4.5 - 10.8 10^3/mcL Workflow SS [facility] 10-16-2021 Troponin I High Sensitivity 3.37 ng/L Normal 0.00-34.00 [facility] ([place]) Comment on above: Result Comment: If t he High Sensitive Troponin result is below the 99th percentile value (<45 ng/L) at the first blood draw, at least two additional blood samples should be drawn before results are interpreted as negative for AMI. Performed By: #### C K, CMP, GFR, TROPHS, SUYAPA #### [address] [address] U ERDSon 10-16-2021 ER U Drug Screen Negative Normal [facility] ([place]) Comment on above: Performed By: #### U ERDS #### [address] [address] ER U Drug Screen Interp Urine shows no evidence of drugs routinely screened. Invalid Interpretation Code [facility] ([place]) Comment on above: Performed By: #### U ERDS #### [facility] [address] [place] [id number] U ER Drugs Screened: See Below Normal [facility] ([place]) Comment on above: Result Comment: This drug [...] By: #### U ERDS #### [place] [address] ED Provider Noteon ED Provider Note [facility] ED EMERGENCY DEPARTMENT ENCOUNTER Pt Name: [...] notes she got kicked out of her half-way. She states she was told to get a job and find another place to live. She is from [place] originally but ended up in [place] after a psychiatric admission. Then discharged to half-way in [place]. She states she does not like it [...] mg by mouth nightlyHistorical Med nystatin (MYCOSTATIN) 304169 UNIT/GM powder Apply topically 2 times daily, [...] (36.6 ? (more content not included)... Normal [facility] ED Provider Noteon [address] [facility] EMERGENCY DEPT EMERGENCY DEPARTMENT ENCOUNTER Pt Name: [...] and Family: Not on file ? Attends [employer] Services: Not on file ? Active Member [...] mouth d (more content not included)... Normal [facility] [employer] [facility] US ABDOMEN LIMITED STUDYon 0 08-29-2021 US [...] SunAug 30, 2021 8:58:04 AM EDT Normal [facility] Comment on above: Order Comment: Injur y/Trauma or Illness?:Illness/Other How long have you had these symptoms (acute/chronic)?:Acute Reason for exam?:RUQ, RLQ pain History of cancer?:unknown Surgeries, chemotherapy, or radiation?:unknown Type of Exam?:Initial Additional signs and symptoms?:no COVID-19, MOLECULARon 2021 SARS-CoV-2 (COVID-19) RNA FLOR+probe Ql (Unsp spec) Not detected Normal Not Detected [facility] Comment on above: Order Comment: This test [...] at the following links: For Healthcare Providers: https://www.fda.gov/media/402182/download For Patients: https://www.fda.gov/media/725594/download Performed By: #### L [id number] #### [facility] [address] [address] [place] Ryan M.D. [id number] No Panel Information Enteric Bacteriology [facility] Work Phone: Vital Signs Date Time Vital Sign Value Performing Clinician Facility 10-03-2024 09:19-0400 Body mass index (BMI) [Ratio] 39.33 kg/m2 Gonzalo Tyson Jr., MD Work Phone: [facility] 10-03-2024 09:19-0400 Body weight 91.35 kg Gonzalo Tyson Jr., MD Work Phone: [facility] 10-03-2024 09:19-0400 Diastolic blood pressure 79 mm[Hg] Gonzalo Tyson Jr., MD Work Phone: [facility] 10-03-2024 09:19-0400 Heart rate 82 /min Gonzalo Tyson Jr., MD Work Phone: [facility] 10-03-2024 09:19-0400 Respiratory rate 16 /min Gonzalo Tyson Jr., MD Work Phone: [facility] 10-03-2024 09:19-0400 SaO2% (BldA) [Mass fraction] 99 % Gonzalo Tyson Jr., MD Work Phone: [facility] 10-03-2024 09:19-0400 Systolic blood pressure 111 mm[Hg] Gonzalo Tyson Jr., MD Work Phone: [facility] 07-28-2024 11:18-0400 Body height 152.4 cm Jorge Maryanne HSE SPECIALIST-C Work Phone: [facility] 07-28-2024 11:18-0400 Body mass index (BMI) [Ratio] 39.5 kg/m2 Jorge Maryanne HSE SPECIALIST-C Work Phone: [facility] 07-28-2024 11:18-0400 Body weight 91.85 kg Jorge Maryanne HSE SPECIALIST-C Work Phone: [facility] 07-28-2024 11:18-0400 Diastolic blood pressure 74 mm[Hg] Jorge Maryanne HSE SPECIALIST-C Work Phone: [facility] 07-28-2024 11:18-0400 Systolic blood pressure 112 mm[Hg] Ojrge Maryanne HSE SPECIALIST-C Work Phone: [facility] 07-28-2024 09:14-0400 Body mass index (BMI) [Ratio] 39.61 kg/m2 Jorge Maryanne 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: [facility] 07-28-2024 09:14-0400 Body weight 92 kg Jorge Maryanne 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: [facility] 07-28-2024 09:14-0400 Diastolic blood pressure 80 mm[Hg] Jorge Maryanne 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: [facility] 07-28-2024 09:14-0400 Heart rate 116 /min Jorge Maryanne 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: [facility] 07-28-2024 09:14-0400 SaO2% (BldA) [Mass fraction] 96 % Jorge Maryanne 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: [facility] 07-28-2024 09:14-0400 Systolic blood pressure 110 mm[Hg] Jorge Maryanne 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: [facility] 06-02-2024 07:07-0400 Body mass index (BMI) [Ratio] 40.26 kg/m2 Jorge Maryanne 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: [facility] 06-02-2024 07:07-0400 Body weight 93.5 kg Jorge Maryanne 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: [facility] 06-02-2024 07:07-0400 Diastolic blood pressure 78 mm[Hg] Jorge Maryanne 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: [facility] 06-02-2024 07:07-0400 Heart rate 83 /min Jorge Maryanne 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: [facility] 06-02-2024 07:07-0400 SaO2% (BldA) [Mass fraction] 98 % Jorge Maryanne 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: [facility] 06-02-2024 07:07-0400 Systolic blood pressure 102 mm[Hg] Jorge Maryanne 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: [facility] 02-28-2024 07:29-0500 Body mass index (BMI) [Ratio] 39.31 kg/m2 Jennifer Agarwal [employer] Work Phone: [facility] 02-28-2024 07:29-0500 Body temperature 98.6 [degF] Jennifer Agarwal [employer] Work Phone: [facility] 02-28-2024 07:29-0500 Body weight 91.3 kg Jennifer Agarwal [employer] Work Phone: [facility] 02-28-2024 07:29-0500 Diastolic blood pressure 74 mm[Hg] Jennifer Agarwal [employer] Work Phone: [facility] 02-28-2024 07:29-0500 Heart rate 93 /min Jennifer Agarwal [employer] Work Phone: [facility] 02-28-2024 07:29-0500 Respiratory rate 16 /min Jennifer Agarwal [employer] Work Phone: [facility] 02-28-2024 07:29-0500 SaO2% (BldA) [Mass fraction] 99 % Jennifer Agarwal [employer] Work Phone: [facility] 02-28-2024 07:29-0500 Systolic blood pressure 110 mm[Hg] Jennifer Agarwal [employer] Work Phone: [facility] 11-27-2023 10:29-0400 Body mass index (BMI) [Ratio] 39.35 kg/m2 Jorge Maryanne 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: [facility] 11-27-2023 10:29-0400 Body weight 91.4 kg Jorge Maryanne 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: [facility] 11-27-2023 10:29-0400 Diastolic blood pressure 59 mm[Hg] Jorge Maryanne 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: [facility] 11-27-2023 10:29-0400 Heart rate 86 /min Jorge Maryanne 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: [facility] 11-27-2023 10:29-0400 SaO2% (BldA) [Mass fraction] 98 % Jorge Maryanne 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: [facility] 11-27-2023 10:29-0400 Systolic blood pressure 84 mm[Hg] Jorge Maryanne 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: [facility] 10-19-2023 10:15-0400 Body mass index (BMI) [Ratio] 39.06 kg/m2 Jorge Maryanne 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: [facility] 10-19-2023 10:15-0400 Body weight 90.72 kg Jorge Maryanne 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: [facility] 10-19-2023 10:15-0400 Diastolic blood pressure 80 mm[Hg] Jorge Maryanne 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: [facility] 10-19-2023 10:15-0400 Heart rate 64 /min Jorge Maryanne 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: [facility] 10-19-2023 10:15-0400 Respiratory rate 12 /min Jorge Maryanne 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: [facility] 10-19-2023 10:15-0400 Systolic blood pressure 104 mm[Hg] Jorge Maryanne 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: [facility] 08-06-2023 09:14-0400 Body mass index (BMI) [Ratio] 40.82 kg/m2 Jorge Maryanne 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: [facility] 08-06-2023 09:14-0400 Body weight 94.8 kg Jorge Maryanne 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: [facility] 08-06-2023 09:14-0400 Diastolic blood pressure 80 mm[Hg] Jorge Maryanne 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: [facility] 08-06-2023 09:14-0400 Heart rate 84 /min Jorge Maryanne 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: [facility] 08-06-2023 09:14-0400 SaO2% (BldA) [Mass fraction] 98 % Jorge Maryanne 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: [facility] 08-06-2023 09:14-0400 Systolic blood pressure 110 mm[Hg] Jorge Maryanne 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: [facility] 07-20-2023 09:41-0400 Body mass index (BMI) [Ratio] 40.82 kg/m2 Jorge Maryanne 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: [facility] 07-20-2023 09:41-0400 Body weight 94.8 kg Jorge Maryanne 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: [facility] 07-20-2023 09:41-0400 Diastolic blood pressure 80 mm[Hg] Jorge Amryanne 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: [facility] 07-20-2023 09:41-0400 Heart rate 80 /min Jorge Maryanne 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: [facility] 07-20-2023 09:41-0400 SaO2% (BldA) [Mass fraction] 98 % Jorge Maryanne 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: [facility] 07-20-2023 09:41-0400 Systolic blood pressure 118 mm[Hg] Jorge Maryanne 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: [facility] 01-19-2023 09:01-0400 Body weight 92.53 kg Jorge Maryanne 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: [facility] 01-19-2023 09:01-0400 Diastolic blood pressure 72 mm[Hg] Jorge Maryanne 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: [facility] 01-19-2023 09:01-0400 Heart rate 97 /min Jorge Maryanne 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: [facility] 01-19-2023 09:01-0400 SaO2% (BldA) [Mass fraction] 98 % Jorge Maryanne 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: [facility] 01-19-2023 09:01-0400 Systolic blood pressure 110 mm[Hg] Jorge Maryanne 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: [facility] 12-25-2022 09:52-0400 Body temperature 98.49 [degF] Jorge Maryanne 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: [facility] 12-25-2022 09:52-0400 Body weight 93.89 kg Jorge Maryanne 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: [facility] 12-25-2022 09:52-0400 Diastolic blood pressure 80 mm[Hg] Jorge Maryanne 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: [facility] 12-25-2022 09:52-0400 Heart rate 103 /min Jorge Maryanne 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: [facility] 12-25-2022 09:52-0400 SaO2% (BldA) [Mass fraction] 97 % Jorge Maryanne 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: [facility] 12-25-2022 09:52-0400 Systolic blood pressure 114 mm[Hg] Jorge Maryanne 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: [facility] 12-04-2022 08:07-0400 Body temperature 97.39 [degF] Freedom Graham 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: [facility] 12-04-2022 08:07-0400 Body weight 94.17 kg Freedom Graham 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: [facility] 12-04-2022 08:07-0400 Diastolic blood pressure 91 mm[Hg] Freedom Graham 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: [facility] 12-04-2022 08:07-0400 Heart rate 104 /min Freedom Graham 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: [facility] 12-04-2022 08:07-0400 Respiratory rate 18 /min Freedom Graham 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: [facility] 12-04-2022 08:07-0400 SaO2% (BldA) [Mass fraction] 97 % Freedom Graham 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: [facility] 12-04-2022 08:07-0400 Systolic blood pressure 132 mm[Hg] Freedom Graham 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: [facility] 11-06-2022 13:09-0400 Body height 152.4 cm HSE SPECIALIST-C Jorge Maryanne [facility] 11-06-2022 13:07-0400 Body mass index (BMI) [Ratio] 40 kg/m2 HSE SPECIALIST-C Jorge Maryanne [facility] 11-06-2022 13:07-0400 Body weight 93.04 kg HSE SPECIALIST-C Jorge Maryanne [facility] 11-06-2022 13:07-0400 Diastolic blood pressure 79 mm[Hg] HSE SPECIALIST-C Jorge Maryanne [facility] 11-06-2022 13:07-0400 Systolic blood pressure 114 mm[Hg] HSE SPECIALIST-C Jorge Maryanne [facility] 10-23-2022 14:31-0400 Body height 152.4 cm HSE SPECIALIST-C Jorge Maryanne [facility] 10-20-2022 09:00-0400 Body weight 91.17 kg Jorge Maryanne 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: [facility] 10-20-2022 09:00-0400 Diastolic blood pressure 84 mm[Hg] Jorge Maryanne 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: [facility] 10-20-2022 09:00-0400 Heart rate 88 /min Jorge Maryanne 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: [facility] 10-20-2022 09:00-0400 SaO2% (BldA) [Mass fraction] 97 % Jorge Maryanne 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: [facility] 10-20-2022 09:00-0400 Systolic blood pressure 100 mm[Hg] Jorge Maryanne 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: [facility] 09-28-2022 11:22-0400 Heart rate 80 /min HSE SPECIALIST-C Jorge Maryanne HSE SPECIALIST [facility] 09-28-2022 11:22-0400 Respiratory rate 16 /min HSE SPECIALIST-C Jorge Maryanne HSE SPECIALIST [facility] 09-28-2022 10:41-0400 Body mass index (BMI) [Ratio] 39.9 kg/m2 HSE SPECIALIST-C Jorge Maryanne HSE SPECIALIST [facility] 09-28-2022 10:41-0400 Body temperature 96.7 [degF] HSE SPECIALIST-C Jorge Maryanne HSE SPECIALIST [facility] 09-28-2022 10:41-0400 Body weight 92.71 kg HSE SPECIALIST-C Jorge Maryanne HSE SPECIALIST [facility] 09-28-2022 10:41-0400 Diastolic blood pressure 90 mm[Hg] HSE SPECIALIST-C Jorge Maryanne HSE SPECIALIST [facility] 09-28-2022 10:41-0400 SaO2% (BldA) [Mass fraction] 97 % HSE SPECIALIST-C Jorge Maryanne HSE SPECIALIST [facility] 09-28-2022 10:41-0400 Systolic blood pressure 125 mm[Hg] HSE SPECIALIST-C Jorge Maryanne HSE SPECIALIST [facility] 08-28-2022 14:18-0400 Body mass index (BMI) [Ratio] 36.6 kg/m2 HSE SPECIALIST-C Jorge Maryanne HSE SPECIALIST Work Phone: [facility] 08-28-2022 14:18-0400 Body weight 93.89 kg HSE SPECIALIST-C Jorge Maryanne HSE SPECIALIST Work Phone: [facility] 08-28-2022 12:59-0400 Body height 160.02 cm HSE SPECIALIST-C Jorge Maryanne HSE SPECIALIST Work Phone: [facility] 08-28-2022 12:59-0400 Body temperature 97.5 [degF] HSE SPECIALIST-C Jorge Maryanne HSE SPECIALIST Work Phone: [facility] 08-28-2022 12:59-0400 Diastolic blood pressure 77 mm[Hg] HSE SPECIALIST-C Jorge Maryanne HSE SPECIALIST Work Phone: [facility] 08-28-2022 12:59-0400 Heart rate 100 /min HSE SPECIALIST-C Jorge Maryanne HSE SPECIALIST Work Phone: [facility] 08-28-2022 12:59-0400 Respiratory rate 16 /min HSE SPECIALIST-C Jorge Maryanne HSE SPECIALIST Work Phone: [facility] 08-28-2022 12:59-0400 SaO2% (BldA) [Mass fraction] 92 % HSE SPECIALIST-C Jorge Maryanne HSE SPECIALIST Work Phone: [facility] 08-28-2022 12:59-0400 Systolic blood pressure 133 mm[Hg] HSE SPECIALIST-C Jorge Maryanne HSE SPECIALIST Work Phone: [facility] 08-18-2022 11:46-0400 Body mass index (BMI) [Ratio] 40.8 kg/m2 HSE SPECIALIST-C Jorge Maryanne HSE SPECIALIST Work Phone: [facility] 08-18-2022 11:46-0400 Body weight 94.97 kg HSE SPECIALIST-C Jorge Maryanne HSE SPECIALIST Work Phone: [facility] 08-18-2022 11:46-0400 Diastolic blood pressure 73 mm[Hg] HSE SPECIALIST-C Jorge Maryanne HSE SPECIALIST Work Phone: [facility] 08-18-2022 11:46-0400 Systolic blood pressure 108 mm[Hg] HSE SPECIALIST-C Jorge Maryanne HSE SPECIALIST Work Phone: [facility] 06-21-2022 08:37-0400 Body height 152.4 cm Jorge Maryanne 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: [facility] 06-21-2022 08:37-0400 Body weight 96.16 kg Jorge Maryanne 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: [facility] 06-21-2022 08:37-0400 Diastolic blood pressure 80 mm[Hg] Jorge Maryanne 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: [facility] 06-21-2022 08:37-0400 Heart rate 98 /min Jorge Maryanne 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: [facility] 06-21-2022 08:37-0400 SaO2% (BldA) [Mass fraction] 98 % Jorge Maryanne 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: [facility] 06-21-2022 08:37-0400 Systolic blood pressure 112 mm[Hg] Jorge Maryanne 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: [facility] 05-24-2022 14:19-0500 Body height 152.4 cm Jorge Maryanne 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: [facility] 05-24-2022 14:19-0500 Body weight 94.35 kg Jorge Maryanne 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: [facility] 05-24-2022 14:19-0500 Diastolic blood pressure 74 mm[Hg] Jorge Maryanne 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: [facility] 05-24-2022 14:19-0500 Heart rate 88 /min Jorge Maryanne 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: [facility] 05-24-2022 14:19-0500 SaO2% (BldA) [Mass fraction] 98 % Jorge Maryanne 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: [facility] 05-24-2022 14:19-0500 Systolic blood pressure 110 mm[Hg] Jorge Maryanne 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: [facility] 05-09-2022 15:50-0500 Body temperature 100.99 [degF] Freedom Graham 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: [facility] 05-09-2022 15:50-0500 Body weight 96.07 kg Freedom Graham 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: [facility] 05-09-2022 15:50-0500 Diastolic blood pressure 88 mm[Hg] Freedom Graham 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: [facility] 05-09-2022 15:50-0500 Heart rate 121 /min Freedom Graham 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: [facility] 05-09-2022 15:50-0500 Respiratory rate 18 /min Freedom Graham 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: [facility] 05-09-2022 15:50-0500 SaO2% (BldA) [Mass fraction] 98 % Freedom Graham 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: [facility] 05-09-2022 15:50-0500 Systolic blood pressure 136 mm[Hg] Freedom Graham 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: [facility] 01-18-2022 09:54-0400 Body temperature 98.4 [degF] [facility] Work Phone: 01-18-2022 09:54-0400 Diastolic blood pressure 59 mm[Hg] [facility] Work Phone: 01-18-2022 09:54-0400 Heart rate 82 /min [facility] Work Phone: 01-18-2022 09:54-0400 Respiratory rate 16 /min [facility] Work Phone: 01-18-2022 09:54-0400 SaO2% (BldA) [Mass fraction] 97 % [facility] Work Phone: 01-18-2022 09:54-0400 Systolic blood pressure 117 mm[Hg] [facility] Work Phone: 01-16-2022 19:57-0400 Body height 152.4 cm [facility] Work Phone: 01-16-2022 19:57-0400 Body mass index (BMI) [Ratio] 43 kg/m2 [facility] Work Phone: 01-16-2022 19:57-0400 Body weight 99.79 kg [facility] Work Phone: 01-10-2022 12:22-0400 Body mass index (BMI) [Ratio] 39 kg/m2 [facility] Work Phone: 01-10-2022 09:20-0400 Body height 152.4 cm [facility] Work Phone: 01-10-2022 09:20-0400 Body temperature 98.2 [degF] [facility] Work Phone: 01-10-2022 09:20-0400 Body weight 90.71 kg [facility] Work Phone: 01-10-2022 09:20-0400 Diastolic blood pressure 87 mm[Hg] [facility] Work Phone: 01-10-2022 09:20-0400 Heart rate 118 /min [facility] Work Phone: 01-10-2022 09:20-0400 Respiratory rate 22 /min [facility] Work Phone: 01-10-2022 09:20-0400 SaO2% (BldA) [Mass fraction] 97 % [facility] Work Phone: 01-10-2022 09:20-0400 Systolic blood pressure 123 mm[Hg] [facility] Work Phone: 10-25-2021 08:32-0400 Diastolic blood pressure 80 mm[Hg] DR JOEL MARIN MD [facility] 10-25-2021 08:32-0400 Heart rate 74 /min DR JOEL MARIN MD [facility] 10-25-2021 08:32-0400 Respiratory rate 18 /min DR JOEL MARIN MD [facility] 10-25-2021 08:32-0400 Systolic blood pressure 132 mm[Hg] DR JOEL MARIN MD [facility] 10-24-2021 23:43-0400 Diastolic blood pressure 83 mm[Hg] DR JOEL MARIN MD [facility] 10-24-2021 23:43-0400 Heart rate 73 /min DR JOEL MARIN MD [facility] 10-24-2021 23:43-0400 Respiratory rate 18 /min DR JOEL MARIN MD [facility] 10-24-2021 23:43-0400 Systolic blood pressure 121 mm[Hg] DR JOEL MARIN MD [facility] 10-24-2021 14:56-0400 Diastolic blood pressure 68 mm[Hg] DR JOEL MARIN MD [address] [place] [address] 10-24-2021 14:56-0400 Heart rate 78 /min DR JOEL MARIN MD [address] 10-24-2021 14:56-0400 Respiratory rate 18 /min DR JOEL MARIN MD [address] 10-24-2021 14:56-0400 Systolic blood pressure 110 mm[Hg] DR JOEL MARIN MD [address] [place] [address] 10-24-2021 06:07-0400 Body temperature 98.06 [degF] DR JOEL MARIN MD [address] 10-24-2021 06:07-0400 Heart rate 80 /min DR JOEL MARIN MD [address] 10-24-2021 06:07-0400 Mean blood pressure 82 mm[Hg] DR JOEL MARIN MD [address] [place] [address] 10-24-2021 06:07-0400 Reason For Taking VItal Signs DR JOEL MARIN MD [address] [place] [address] 10-23-2021 21:36-0400 Body temperature 98.24 [degF] DR JOEL MARIN MD [address] [place] [address] 10-23-2021 21:36-0400 Heart rate 69 /min DR JOEL MARIN MD [address] 10-22-2021 14:40-0400 Mean blood pressure 90 mm[Hg] DR JOEL MARIN MD [facility] 10-22-2021 06:50-0400 Reason For Taking VItal Signs DR JOEL MARIN MD [facility] 10-21-2021 21:51-0400 Body temperature 98.24 [degF] DR JOEL MARIN MD [facility] 10-21-2021 21:51-0400 Reason For Taking VItal Signs DR JOEL MARIN MD [facility] 10-20-2021 06:55-0400 Mean blood pressure 84 mm[Hg] DR JOEL MARIN MD [facility] 10-17-2021 04:57-0400 Body temperature 98.42 [degF] DR JOEL MARIN MD [facility] 10-15-2021 22:59-0400 Body temperature 98.06 [degF] DR JOEL MARIN MD [facility] 10-11-2021 13:05-0400 Body temperature 97.81 [degF] Jitendra Mudrakola DO Work Phone: [facility] 10-11-2021 13:05-0400 Diastolic blood pressure 88 mm[Hg] Jitendra Mudrakola DO Work Phone: [facility] 10-11-2021 13:05-0400 Heart rate 83 /min Jitendra Mudrakola DO Work Phone: [facility] 10-11-2021 13:05-0400 Respiratory rate 18 /min Jitendra Mudrakola DO Work Phone: [facility] 10-11-2021 13:05-0400 SaO2% (BldA) [Mass fraction] 99 % Jitendra Mudrakola DO Work Phone: [facility] 10-11-2021 13:05-0400 Systolic blood pressure 130 mm[Hg] Jitendra Mudrakola DO Work Phone: [facility] Encounters Encounter Date Encounter Type Care Provider Facility Start: 10-07-2024 ambulatory Jorge Madden HSE SPECIALIST Facilit y:[facility] Start: 10-03-2024 End: 10-03-2024 Patient encounter procedure Gonzalo Tyson MD Work Phone: Neurology Comment on above: Seizure disorder (HC C) (Primary Dx); History of traumatic injury of head; History of alcohol abuse; Family history of seizures; Chronic intractable headache, unspecified headache type; Claustrophobia Start: 09-23-2024 End: 09-23-2024 ambulatory Jorge Comerr HSE SPECIALIST-C Work Phone: -Laboratory Start: 09-23-2024 End: 09-23-2024 Patient encounter procedure Aly Carlos DO -Laboratory Work Phone: Start: 09-23-2024 End: 09-23-2024 Patient encounter procedure Aly Carlos DO -[facility] Work Phone: Start: 09-23-2024 End: 09-23-2024 ambulatory Jorge Comerr HSE SPECIALIST-C Work Phone: -[facility] Start: 09-22-2024 End: 09-22-2024 Patient encounter procedure Clau Abebe PA-C Work Phone: Orthopaedics Comment on above: Left carpal tunnel s yndrome (Primary Dx) Start: 09-22-2024 End: 09-23-2024 ambulatory CLAU ABEBE Facility:[facility] Start: 09-11-2024 End: 09-11-2024 ambulatory TINO NICHOLSON Facility:[facility] Start: 07-30-2024 End: 07-30-2024 Telephone encounter Jorge Madden 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: [facility] [place] Comment on above: US results Start: 07-29-2024 End: 07-29-2024 ambulatory Jorge Comerr HSE SPECIALIST-C Work Phone: [facility] Work Phone: Start: 07-29-2024 End: 07-29-2024 Patient encounter procedure Princess Blake HSE SPECIALIST-C -[facility] Work Phone: Start: 07-28-2024 End: 07-28-2024 Refill Jorge Madden 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: [facility] [place] Comment on above: Med Change Request Start: 07-28-2024 End: 07-28-2024 Patient encounter procedure Princess Blake HSE SPECIALIST-C -[facility] Work Phone: Start: 07-28-2024 End: 07-28-2024 ambulatory Jorge Madden HSE SPECIALIST-C Work Phone: [facility] Work Phone: Start: 07-28-2024 End: 07-28-2024 Patient encounter procedure Jorge Madden 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: [facility] Comment on above: Seizure disorder (HC C) (Primary Dx); Chronic obstructive pulmonary disease with acute exacerbation (HCC); Hypothyroidism, unspecified type; Anxiety; Tobacco use disorder; MAI (obstructive sleep apnea); Colon cancer screening; Seasonal allergies; Boil of groin Start: 07-28-2024 End: 07-29-2024 ambulatory JORGE MADDEN Facility:[facility] Start: 07-28-2024 End: 07-28-2024 ambulatory Princess Blake HSE SPECIALIST Facility:[facility] Start: 06-06-2024 End: 08-06-2024 Follow-up encounter Jennifer Agarwal APRN.ROSE GRADER Work Phone: [facility] [place] Start: 06-03-2024 End: 08-03-2024 Follow-up encounter Jorge Madden 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: [facility] [place] Start: 06-02-2024 End: 06-02-2024 ambulatory JORGE MADDEN Facility:[facility] Start: 06-02-2024 End: 06-02-2024 Patient encounter procedure Jorge Madden 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: [facility] [place] Comment on above: Chronic obstructive pulmonary disease with acute exacerbation (HCC) (Primary Dx); Seizure disorder (HCC); Left arm pain; Chronic left shoulder pain; Bilateral carpal tunnel syndrome; Hypothyroidism, unspecified type; Screening for colon cancer; Encounter for therapeutic drug monitoring; Anxiety; History of alcohol abuse Start: 05-09-2024 End: 05-09-2024 [facility] Start: 05-05-2024 End: 05-05-2024 Refill Jorge Madden 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: [facility] [place] [facility] Comment on above: Refill Request Start: 2024 End: 2024 Telephone encounter Jorge Madden 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: [facility] [place] [facility] Comment on above: results Start: 02-28-2024 End: 03-03-2024 Telephone encounter Tino Nicholson MD Work Phone: Orthopaedics Comment on above: Appointment Start: 02-28-2024 End: 02-28-2024 [facility] Start: 02-28-2024 End: 02-28-2024 Office outpatient visit 25 minutes Jennifer Agarwal [employer]OLLER.[employer]SE GRADER Work Phone: [facility] [place] Comment on above: Acute cough (Primary Dx); Chronic obstructive pulmonary disease with acute exacerbation (HCC); Sinobronchitis; Seizure disorder (HCC) Start: 02-26-2024 End: 02-29-2024 Telephone encounter Jorge Madden APRN.RUBY RAILS DEVELOPER Work Phone: [address] [place] [address] Comment on above: Surgery Cancelled Start: 02-19-2024 End: 02-19-2024 ambulatory Jorge Comerr 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: [facility] [place] Comment on above: Cough Start: 02-13-2024 End: 02-15-2024 Telephone encounter Tino Nicholson MD Work Phone: Orthopaedics Comment on above: Patient Update Appointment Start: 01-30-2024 End: 01-31-2024 Telephone encounter Tino Nicholson MD Work Phone: Orthopaedics Comment on above: Schedule Surgery Start: 01-28-2024 End: 01-28-2024 ambulatory JORGE COMERR Facility:[facility] Start: 01-28-2024 End: 01-28-2024 Patient encounter procedure Tino Nicholson MD Work Phone: Orthopaedics Comment on above: Shoulder impingement (Primary Dx); Left arm pain; Bilateral carpal tunnel syndrome; Carpal tunnel syndrome of left wrist Start: 01-11-2024 End: 01-11-2024 Refill Jorge Maryanne 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: [facility] [place] Comment on above: Refill Request Start: 12-19-2023 End: 01-30-2024 Telephone encounter Jorge Maryanne 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: [facility] [place] Comment on above: EEG Results Neurology Consult Start: 12-10-2023 End: 12-10-2023 ambulatory Jorge Comerr HSE SPECIALIST Facility:[facility] Start: 11-28-2023 End: 11-28-2023 Telephone encounter Jorge Maryanne 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: [facility] [place] Comment on above: Results Start: 11-27-2023 End: 11-27-2023 ambulatory JORGE MARYANNE Facility:[facility] Start: 11-27-2023 End: 11-27-2023 Patient encounter procedure Jorge Maryanne 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: [facility] [place] Comment on above: Seizure disorder (HC C) (Primary Dx); Memory deficit; Left arm pain; Bilateral carpal tunnel syndrome; Seasonal allergies; Boil of groin; Anxiety; Tobacco use disorder; History of alcohol abuse; Encounter for immunization Start: 11-23-2023 End: 11-23-2023 ambulatory JORGE MARYANNE Neurology Comment on above: EMG Start: 11-23-2023 End: 11-23-2023 Patient encounter procedure Emg 1 Neur [facility] (Max Weight: 850) Neurology Start: 11-19-2023 End: 11-21-2023 Telephone encounter Jorge Maryanne 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: [facility] [place] Comment on above: Patient Question Start: 11-05-2023 End: 11-05-2023 ambulatory Jorge Madden HSE SPECIALIST Facility:[facility] Start: 11-01-2023 End: 01-29-2024 Telephone encounter Jorge Maryanne 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: [facility] [place] [facility] Comment on above: CT scan denial from insurance Start: 10-22-2023 Telephone encounter Jorge Tinajero er 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: [facility] [place] Comment on above: Results Start: 10-19-2023 Telephone encounter Jorge Tinajero er 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: [facility] [place] Comment on above: Medication Problem Start: 10-19-2023 End: 10-19-2023 ambulatory JORGE MADDEN Facility:[facility] Start: 10-19-2023 End: 10-19-2023 Patient encounter procedure Jorge Madden 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: [facility] [place] [facility] Comment [...] Start: 09-03-2023 Telephone encounter Jorge Tinajero er 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: [facility] [place] Comment on above: Patient Update (Reas on for MRI Not Fully Completed); Appointment ([facility]) Start: 09-03-2023 End: 09-03-2023 Subsequent hospital visit by physician Keyla [facility] (I-Stat) Work Phone: Cat Scan Comment on above: Seizure disorder (HC C) [G40.909] Start: 08-30-2023 Telephone encounter Jorge Tinajero er 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: [facility] [place] Comment on above: Orders Start: 08-27-2023 End: 08-27-2023 Subsequent hospital visit by physician [facility] (I-Stat) Work Phone: Cat Scan Comment on above: Canceled (CC cx: Nickolas garza) Start: 08-24-2023 Telephone encounter Jorge Cleav er 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: [facility] [place] [facility] Comment on above: Results Start: 08-07-2023 Telephone encounter Jorge Cleav er 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: [facility] [place] Comment on above: Results Start: 08-06-2023 Telephone encounter Jorge Cleav er 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: [facility] [place] Comment on above: Medication Question Start: 08-06-2023 End: 08-06-2023 Patient encounter procedure Jorge Maryanne 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: [facility] [place] Comment on above: Seizure disorder (HC C) (Primary Dx); Situational anxiety Start: 08-04-2023 ambulatory Alba Carrillo RN NURS E DAIRY BACTERIOLOGIST Comment on above: Medication Question Seizures Start: 07-23-2023 Telephone encounter Jorge Cleav er 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: [facility] [place] Comment on above: Results Start: 07-20-2023 End: 07-20-2023 Patient encounter procedure Jorge Maryanne 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: [facility] [place] [facility] Comment on above: Seizure disorder (HC C) (Primary Dx); Alkaline phosphatase elevation; Fatty liver; Hypothyroidism, unspecified type; Vitamin D deficiency; MAI (obstructive sleep apnea); IFG (impaired fasting glucose); DUB (dysfunctional uterine bleeding); Left arm pain; Oral thrush; Encounter for therapeutic drug monitoring Start: 07-05-2023 Refill Juan C maxwell MD Work Phone: [facility] [place] Comment on above: Refill Request Start: 06-04-2023 End: 06-04-2023 Subsequent hospital visit by physician [facility] Work Phone: Radiology Comment on above: Alkaline phosphatase elevation [R74.8] Start: 05-07-2023 Telephone encounter Jorge Cleav er 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: [facility] [place] Comment on above: Results Start: 05-03-2023 Telephone encounter Jennifer Kimberly meadows CITY COMPTROLLER.ROSE GRADER Work Phone: [facility] Comment on above: Pain; Results (Labs) Start: 04-20-2023 End: 04-20-2023 Subsequent hospital visit by physician Xr [facility] [place] Work Phone: Radiology Comment on above: Chronic left shoulde r pain [M25.512, G89.29] Start: 01-19-2023 End: 01-19-2023 Patient encounter procedure Jorge Madden 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: [facility] [place] Comment on above: Seizure disorder (HC C) (Primary Dx); Chronic obstructive pulmonary disease, unspecified COPD type (HCC); Hypothyroidism, unspecified type; Vitamin D deficiency; IFG (impaired fasting glucose); Tobacco use disorder; Encounter for immunization; Encounter for therapeutic drug monitoring Start: 01-17-2023 Refill Jorge Madden 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: [facility] Comment on above: Refill Request Start: 01-03-2023 Telephone encounter Jorge Tinajero er 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: [facility] [place] Comment on above: Patient Update Start: 12-25-2022 End: 12-25-2022 Patient encounter procedure Jorge Madden 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: [facility] [place] Comment on above: Chronic obstructive pulmonary disease with acute exacerbation (HCC) (Primary Dx); Subacute cough; Tobacco use disorder Start: 12-14-2022 Telephone encounter Jorge Cleav er 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: [facility] Comment on above: Medication Problem Start: 12-05-2022 ambulatory Joslyn Fuentes RN NURSE O N CALL Comment on above: Lab & Test Results Start: 12-04-2022 End: 12-04-2022 Subsequent hospital visit by physician Ubaldo [facility] [place] Work Phone: Radiology Comment on above: Subacute cough [R05. 2] Start: 12-04-2022 End: 12-04-2022 Patient encounter procedure Freedom Graham 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: [facility] Comment on above: Subacute cough (Prim [place] Dx) Start: 11-24-2022 End: 11-24-2022 ambulatory HSE SPECIALIST-C Jorge Comerr HSE SPECIALIST [facility] Work Phone: Start: 11-24-2022 End: 11-24-2022 Patient encounter procedure HSE SPECIALIST-C Jorge Maryanne HSE SPECIALIST [facility]-Ultrasound, [facility] Work Phone: Start: 11-14-2022 Telephone encounter Jorge Tinajero er 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: [facility] Comment on above: US left armpit resul ts Start: 11-06-2022 End: 11-06-2022 ambulatory HSE SPECIALIST-C Jorge Maryanne [facility] Work Phone: Start: 11-06-2022 End: 11-06-2022 Patient encounter procedure HSE SPECIALIST-C Jorge Comerr HSE SPECIALIST [facility]-Laboratory, Specimen Work Phone: Start: 11-06-2022 End: 11-06-2022 Patient encounter procedure HSE SPECIALIST-C Jorge Comerr HSE SPECIALIST [facility] Work Phone: Start: 11-01-2022 End: 11-01-2022 Patient encounter procedure HSE SPECIALIST-C Jorge Maryanne HSE SPECIALIST [facility] [facility], [facility] Work Phone: Start: 10-23-2022 End: 10-23-2022 ambulatory HSE SPECIALIST-C Jorge Maryanne HSE SPECIALIST [facility] Work Phone: Start: 10-23-2022 End: 10-23-2022 Patient encounter procedure HSE SPECIALIST-C Jorge Maryanne HSE SPECIALIST [facility]-Laboratory, [facility] Pavilion Start: 10-23-2022 End: 10-23-2022 Patient encounter procedure HSE SPECIALIST-C Jorge Maryanne HSE SPECIALIST [facility] Work Phone: Start: 10-20-2022 Telephone encounter Atiya Bass Comment on above: Social Work Services Start: 10-20-2022 End: 10-20-2022 Patient encounter procedure Jorge Comerr 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: [facility] [place] Comment on above: Pelvic kidney (Prima ry Dx); Uterine leiomyoma, unspecified location; Dysmenorrhea; Seizure disorder (HCC); Mass of left axilla; History of alcohol abuse; Inability to return to living situation; Lives in sheltered housing; Lack of access to transportation; Patient not earning income; Encounter for screening involving social determinants of health (SDoH) Start: 09-28-2022 End: 09-28-2022 Emergency department patient visit HSE SPECIALIST-Bart Madden HSE SPECIALIST [facility]Emergency Department Work Phone: Start: 09-25-2022 Telephone encounter Jorge Tinajero er 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: [facility] [place] Comment on above: Patient Request Start: 09-20-2022 End: 09-20-2022 Patient encounter procedure HSE SPECIALIST-Bart Madden HSE SPECIALIST [facility]-Pulmonary Services/Neurology Work Phone: Start: 09-18-2022 End: 09-18-2022 Patient encounter procedure HSE SPECIALIST-Bart Madden HSE SPECIALIST [facility] [facility], [facility] Work Phone: Start: 09-11-2022 Refill Jorge Madden 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: [facility] [place] Comment on above: Refill Request Start: 08-28-2022 End: 08-28-2022 Emergency department patient visit HSE SPECIALIST-Bart Madden HSE SPECIALIST Work Phone: [facility]-Emergency Department Start: 08-18-2022 End: 08-18-2022 Patient encounter procedure HSE SPECIALIST-Bart Madden HSE SPECIALIST Work Phone: [facility] Start: 07-19-2022 ambulatory Jorge Comerr 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: [facility] [place] Comment on above: Question regarding P HENYTOIN/DILANTIN Start: 07-19-2022 Telephone encounter Jorge Tinajero er 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: [facility] Comment on above: Medication Problem Start: 07-10-2022 Telephone encounter Jorge Cleav er 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: [facility] [place] [facility] Comment on above: Orders Start: 07-05-2022 ambulatory Jorge Comerr 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: [facility] [place] [facility] Comment on above: Results Start: 07-05-2022 E-mail encounter fro m caregiver Jorge Maryanne 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: [facility] Start: 07-04-2022 End: 07-04-2022 Subsequent hospital visit by physician [facility] (I-Stat) Work Phone: Cat Scan Comment on above: Colitis [K52.9] Start: 06-22-2022 Telephone encounter Jorge Cleav er 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: [facility] [place] Comment on above: Patient Question (Re garding lab test) Start: 06-21-2022 End: 06-21-2022 Patient encounter procedure Jorge Maryanne 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: [facility] [place] [facility] Comment on above: Wellness examination (Primary Dx); Colitis; Seizure disorder (HCC); Abdominal pain, suprapubic; Screening for HPV (human papillomavirus); Lower abdominal pain; Screen for STD (sexually transmitted disease); Encounter for therapeutic drug monitoring Start: 06-21-2022 End: 06-21-2022 Patient encounter status Jorge Comerr 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: [facility] [place] [facility] Start: 06-01-2022 Telephone encounter Jorge Cleav er 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: [facility] [place] [facility] Comment on above: Medication Question Start: 05-30-2022 Telephone encounter Jorge Cleav er 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: [facility] [place] Comment on above: referrals/orders to [facility] Start: 05-26-2022 Telephone encounter Jorge Cleav er 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: [facility] [place] Comment on above: Results; Nurse Triag e Call Start: 05-24-2022 End: 05-24-2022 Patient encounter procedure Jorge Maryanne 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: [facility] [place] Comment on above: Recurrent major depr essive [...] Telephone encounter Boom Campbell MD Work Phone: [place] [facility] Comment on above: Results Start: 05-09-2022 End: 05-09-2022 Patient encounter procedure Freedom Graham APRN.CNP Work Phone: [place] [facility] Comment on above: Sinobronchitis (Prim [place] Dx) Start: 01-18-2022 End: 01-25-2022 Evaluation and management of inpatient [facility] Start: 01-16-2022 End: 01-18-2022 Emergency department patient visit [facility] Start: 01-10-2022 End: 01-10-2022 Emergency department patient visit [facility] Start: 10-15-2021 End: 10-25-2021 Emergency department patient visit DR JOEL MARIN MD [facility] Start: 10-11-2021 End: 10-11-2021 Emergency department patient visit Jitendra Ortiz DO Work Phone: [facility] Start: 08-25-2021 End: 09-02-2021 Evaluation and management of inpatient PHYSICIAN [facility] Start: 07-14-2021 End: 07-18-2021 ambulatory PHYSICIAN [facility] Start: 05-02-2021 End: 05-06-2021 ambulatory PHYSICIAN [facility] Procedures Date Procedure Procedure Detail Performing Clinician Start: 09-23-2024 Albumin/Globulin ratio Jorge HOLLEY Work Phone: Start: 09-23-2024 Antibody measurement Ro sa Maryanne HSE SPECIALIST-C Work Phone: Comment on above: The atypical pANCA p attern has been observed in asignificant percentage of patients with ulcerative colitis,primary sclerosing cholangitis and autoimmune hepatitis.Performed at: - [facility] [id number] [place], [place] [id number] Director: Wilfrid Mancia PhD, Phone: [phone] at: - [facility] [id number] Director: Blaise Mcgraw MD, Phone: [phone] Start: 09-23-2024 Antibody to centrome re measurement Jorge Maryanne HSE SPECIALIST-C Work Phone: Comment on above: Test not performed Previous reported re sult: TNP AIEdited by: YOANA on 09/28/24:0407 AMENDED REPORT 09/28/24 0407 ANTI-CENT B previously reported as: Test not performed Start: 09-23-2024 Antibody to extracta ble nuclear antigen measurement Jorge Maryanne HSE SPECIALIST-C Work Phone: Comment on above: Test not performed Previous reported re sult: TNP AIEdited by: YOANA on 09/28/24:0407 AMENDED REPORT 09/28/24 040 MORENO Ab previously reported as: Test not performed Start: 09-23-2024 Antibody to YANETH-1 measurement Jorge Maryanne HSE SPECIALIST-C Work Phone: Comment on above: Test not performed Previous reported re sult: TNP AIEdited by: YOANA on 09/28/24:0407 AMENDED REPORT 09/28/24 0407 ANTI-YANETH previously reported as: Test not performed Start: 09-23-2024 Antibody to lupus La protein measurement Jorge Maryanne HSE SPECIALIST-C Work Phone: Start: 09-23-2024 Antibody to SS-A measurement Jorge Maryanne HSE SPECIALIST-C Work Phone: Start: 09-23-2024 Autoantibody measurement Jorge Maryanne HSE SPECIALIST-C Work Phone: Comment on above: Test not performed Previous reported re sult: TNP AIEdited by: YOANA on 09/28/24:0407 AMENDED REPORT 09/28/24 0407 ANTICHROMATIN previously reported as: Test not performed Start: 09-23-2024 Endomysial antibody IgA level Jorge Comerr HSE SPECIALIST-C Work Phone: Start: 09-23-2024 Hepatitis A virus an tibody, IgM type Jorge Madden HSE SPECIALIST-C Work Phone: Comment on above: A negative anti-HAV IgM result suggests no recent orcurrent HAV infection. Start: 09-23-2024 Hepatitis B core ant ibody measurement, IgM type Jorge Madden HSE SPECIALIST-C Work Phone: Start: 09-23-2024 Hepatitis C antibody measurement Jorge Comerr HSE SPECIALIST-C Work Phone: Start: 09-23-2024 Immunoglobulin M measurement Jorge Comerr HSE SPECIALIST-C Work Phone: Start: 09-23-2024 In-vitro immunologic test Jorge Comerr HSE SPECIALIST-C Work Phone: Comment on above: QuantiFERON-TB Gold [...] productionof interferon gamma. Chemiluminescence immunoassaymethodology Start: 09-23-2024 PHARMACIST CRITICAL CARE antibody measurement Jorge Maryanne HSE SPECIALIST-C Work Phone: Comment on above: Test not performed Previous reported re sult: TNP AIEdited by: YOANA on 09/28/24:406 AMENDED REPORT 09/28/24406 PHARMACIST CRITICAL CARE Ab previously reported as: Test not performed Start: 09-23-2024 Scallop RAST Jorge Cleav er HSE SPECIALIST-C Work Phone: Start: 09-23-2024 Sesame seed RAST Jorge C leaver HSE SPECIALIST-C Work Phone: Comment on above: Performed at: [address] [id number] Director: Wilfrid Mancia PhD, Phone: [phone] at: [address] [id number] Director: Blaise Mcgraw MD, Phone: [phone] Start: 09-23-2024 Shrimp RAST Jorge Cleav er HSE SPECIALIST-C Work Phone: Start: 07-29-2024 Pelvic echography Jorge Maryanne HSE SPECIALIST-C Work Phone: Start: 07-28-2024 Gram stain microscopy R mai Maryanne HSE SPECIALIST-C Work Phone: Start: 07-28-2024 Source specific culture Jorge Maryanne HSE SPECIALIST-C Work Phone: Start: 07-28-2024 Liquid based cervica l cytology screening Jorge Maryanne HSE SPECIALIST-C Work Phone: Comment on above: NEGATIVE FOR INTRAEP ITHELIAL LESION OR MALIGNANCY. This liquid based Th inPrep(R) pap test was screened withthe use of an image guided system. Start: 01-28-2024 Arthrocentesis aspir &/inj major jt/bursa w/o us Tino Nicholson MD Work Phone: Start: 11-23-2023 Nerve conduction pina dies 5-6 studies Jorge Comerr 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: Start: 09-03-2023 Ct head/brain w/o & w/contrast material Juan C Villarreal MD Work Phone: Start: 06-04-2023 Us abdominal real ti me w/image limited Jorge Madden 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: Start: 04-20-2023 Radex shoulder compl ete minimum 2 views Jorge Madden 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: Start: 01-19-2023 INFLUENZA VACCINE, A GE 6 MO - 64 YR, QUADRIVALENT (AFLURIA, FLULAVAL, FLUZONE) Jorge Madden 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: Start: 12-04-2022 Radiologic exam chest 2 views Freedom Graham 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: Start: 11-24-2022 Pelvic echography HSE SPECIALIST-C Jorge Maryanne HSE SPECIALIST Start: 11-01-2022 Ultrasonography of limb HSE SPECIALIST-C Jorge Maryanne HSE SPECIALIST Start: 09-28-2022 SARS-CoV-2 & FLU Antigen (Rapid) HSE SPECIALIST-C Jorge Maryanne HSE SPECIALIST Start: 09-28-2022 Plain chest X-ray HSE SPECIALIST-C Jorge Maryanne HSE SPECIALIST Start: 09-18-2022 Pelvic echography HSE SPECIALIST-C Jorge Maryanne HSE SPECIALIST Start: 09-18-2022 Transvaginal echography HSE SPECIALIST-C Jorge Maryanne HSE SPECIALIST Start: 07-04-2022 Ct abdomen & pelvis w/contrast material Jorge Madden 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: Start: 05-24-2022 Lipid 1996 panel - S adelina or Plasma Joslyn Fuentes RN Start: 01-10-2022 CT of abdomen and pe lvis without contrast Enteric Bacteriology Viral antigen assay Plan of Treatment Date Care Activity Detail Author Start: 07-28-2029 Screening for malignant neoplasm of cervix Cervical Cancer Screening [facility] Start: 06-22-2027 HPV TESTING HPV TESTING [facility] Start: 06-22-2027 PAP TESTING PAP TESTING [facility] Start: 06-22-2027 Screening for malignant neoplasm of cervix [facility] Start: 06-03-2027 Diabetes Screening Diabetes Screening [facility] Start: 05-25-2027 Lipid 1996 panel - Serum or Plasma Lipid Screening [facility] Start: 05-25-2027 Lipid panel Lipid Screening [facility] Start: 05-25-2027 LIPID SCREEN LIPID SCREEN [facility] Start: 10-18-2026 Diabetes Screening Diabetes Screening [facility] Start: 07-19-2026 Diabetes Screening Diabetes Screening [facility] Start: 07-14-2026 Lipid panel Lipids [facility] Start: 04-20-2026 Diabetes Screening Diabetes Screening [facility] Start: 01-19-2026 Diabetes Screening Diabetes Screening [facility] Start: 10-20-2025 DIABETES SCREEN DIABETES SCREEN [facility] Start: 10-20-2025 Diabetes Screening Diabetes Screening [facility] Start: 07-28-2025 Annual PCP Team Chronic Disease Visit Annual PCP Team Chronic Disease Visit [facility] Start: 06-21-2025 DIABETES SCREEN DIABETES SCREEN [facility] Start: 06-02-2025 Annual PCP Team Chronic Disease Visit Annual PCP Team Chronic Disease Visit [facility] Start: 05-24-2025 DIABETES SCREEN DIABETES SCREEN [facility] Start: 12-10-2024 End: 12-10-2024 Patient encounter procedure 12/10/2024 11:30 AM EDT Office Visit Neurology [address] [facility] [place] [address] Janny Mclaughlin PA-C [address] [place] [address] 2 month seizure disorder follow up Neurology Comment on above: 2 month seizure disorder follow up Start: 11-26-2024 Annual PCP Team Chronic Disease Visit Annual PCP Team Chronic Disease Visit [facility] Start: 11-24-2024 Influenza vaccination Influenza Vaccine (#1) [facility] Start: 10-28-2024 End: 10-28-2024 Patient encounter procedure 10/28/2024 8:20 AM EDT Office Visit Internal Medicine Juan J [address] [place] [address] Jorge Madden APRN.[employer] DEVELOPER [address] [place] [address] 3 month follow up Internal Medicine Juan J Comment on above: 3 month follow up Start: 10-20-2024 End: 10-20-2024 Patient encounter procedure 10/20/2024 2:30 PM EDT Office Visit Orthopaedics [address] [place] [address] Tino Nicholson MD [address] [place] [address] Post op Left CTR Orthopaedics Comment on above: Post op Left CTR Start: 10-18-2024 Annual PCP Team Chronic Disease Visit Annual PCP Team Chronic Disease Visit [facility] Start: 10-03-2024 End: 10-03-2024 Patient encounter procedure Neurology Comment on above: Seizure disorder (HCC) [G40.909] Seizure disorder (HC C) [G40.909], Dilantin ER 300 mg BID, EEG 09/25/22 Start: 09-23-2024 Acute hepatitis 2000 panel - Serum [facility] Start: 09-23-2024 C reactive protein [Mass/volume] in Serum or Plasma [facility] Start: 09-23-2024 CBC W Auto Differential panel - Blood [facility] Start: 09-23-2024 Celiac disease screen [facility] Start: 09-23-2024 Comprehensive metabolic 2000 panel - Serum or Plasma [facility] Start: 09-23-2024 Erythrocyte sedimentation rate [facility] Start: 09-23-2024 Hemoglobin A1c/Hemoglobin.total in Blood [facility] Start: 09-23-2024 Immunoglobulin measurement [facility] Start: 09-23-2024 In-vitro immunologic test [facility] Start: 09-23-2024 Iron [Mass/mass] in Unspecified specimen [facility] Start: 09-23-2024 Lactate dehydrogenase measurement [facility] Start: 09-23-2024 Prothrombin time [facility] Start: 09-23-2024 Serum immunofixation [facility] Start: 09-23-2024 Thyroid stimulating hormone measurement [facility] Start: 09-23-2024 [facility] Start: 08-05-2024 Annual PCP Team Chronic Disease Visit Annual PCP Team Chronic Disease Visit [facility] Start: 07-28-2024 Liquid based cervical cytology screening [facility] Start: 07-19-2024 Annual PCP Team Chronic Disease Visit Annual PCP Team Chronic Disease Visit [facility] Start: 07-01-2024 End: 07-01-2024 Patient encounter procedure 07/01/2024 9:00 AM EDT Office Visit Internal Medicine Juan J [address] [place] [address] Jorge Madden APRN.[employer] DEVELOPER [address] [place], [place] [address] 4 week follow up [facility] [place] Comment on above: 4 week follow up Start: 06-02-2024 End: 09-01-2024 CBC W Auto Differential panel - Blood [facility] Work Phone: Comment on above: Expected: 06/02/2024, Expires: Start: 06-02-2024 End: 09-01-2024 Comprehensive metabolic 2000 panel - Serum or Plasma [facility] Comment on above: Expected: 06/02/2024, Expires: Start: 06-02-2024 End: 09-01-2024 Phenytoin [Mass/volume] in Serum or Plasma [facility] Comment on above: Expected: 06/02/2024, Expires: Start: 06-02-2024 End: 09-01-2024 Thyrotropin [Units/volume] in Serum or Plasma [facility] Comment on above: Expected: 06/02/2024, Expires: Start: 06-02-2024 End: 09-01-2024 Thyroxine (T4) free [Mass/volume] in Serum or Plasma [facility] Comment on above: Expected: 06/02/2024, Expires: Start: 06-02-2024 End: 09-01-2024 Triiodothyronine (T3) Free [Mass/volume] in Serum or Plasma [facility] Comment on above: Expected: 06/02/2024, Expires: Start: 06-02-2024 End: 06-02-2024 Patient encounter procedure 06/02/2024 7:20 AM EDT Office Visit Internal Medicine [place] [address] [place], [place] [id number] Jorge Madden APRN.[employer] DEVELOPER [address] [place], [place] [id number] 3 month f/u Internal Medicine [place] Comment on above: 3 month f/u Start: 05-09-2024 End: 05-09-2024 ambulatory 05/09/2024 8:30 AM EST Results Only Juan J [facility] Draw Station [address] [place] [address] Juan J [facility] Draw Station Start: 04-20-2024 Annual PCP Team Chronic Disease Visit Annual PCP Team Chronic Disease Visit [facility] Start: 04-07-2024 End: 04-07-2024 Patient encounter procedure 04/07/2024 9:30 AM EST Office Visit Orthopaedics [address] [place] [address] Tino Nicholson MD [address] [place] [address] Post op Left CTR Orthopaedics Comment on above: Post op Left CTR Start: 03-10-2024 End: 03-10-2024 Patient encounter procedure 03/10/2024 9:00 AM EST Office Visit Orthopaedics [address] [place] [address] Clau Abebe PA-C [address] [place] [address] Post op Left CTR Orthopaedics Comment on above: Post op Left CTR Start: 02-29-2024 End: 02-29-2024 Admission to same day surgery center 02/29/2024 9:59 AM EST - 02/29/2024 10:53 AM EST Surgery [facility] [address] [place] [address] Tino Nicholson MD [address] [place] [address] DECOMPRESSION NERVE MEDIAN CARPAL TUNNEL [facility] Comment on above: DECOMPRESSION NERVE MEDIAN CARPAL TUNNEL Start: 02-29-2024 End: 02-29-2024 Neuroplasty &/transpos median nrv carpal tunne DECOMPRESSION NERVE MEDIAN CARPAL TUNNEL Left carpal tunnel syndrome 02/29/2024 9:59 AM EST ME OR Start: 02-29-2024 Subsequent hospital visit by physician 02/29/2024 9:59 AM EST Hospital Encounter [facility] [address] [place] [address] Tino Nicholson MD [address] [place] [address] Left carpal tunnel syndrome [G56.02] [facility] Comment on above: Left carpal tunnel syndrome [G56.02] Start: 02-28-2024 End: 05-29-2024 Phenytoin [Mass/volume] in Serum or Plasma [facility] Work Phone: Comment on above: Expected: 02/28/2024, Expires: Start: 02-27-2024 End: 02-27-2024 Anesthesia consultation 02/27/2024 1:00 PM EST PAT Pre Anesthesia [address] [place] [address] 1, [facility] [address] [place] [address] DECOMPRESSION NERVE MEDIAN CARPAL TUNNEL [[id number]] - Wrist - Left Pre Anesthesia Comment on above: DECOMPRESSION NERVE MEDIAN CARPAL TUNNEL [[id number]] - Wrist - Left Start: 02-26-2024 End: 02-26-2024 Patient encounter procedure 02/26/2024 11:00 AM EST Office Visit Internal Medicine [place] [address] [place] [address] Jennifer Agarwal APRN.ROSE GRADER [address] [place] [address] 3 month follow up Internal Medicine [place] Comment on above: 3 month follow up Start: 02-14-2024 End: 02-14-2024 Anesthesia consultation 02/14/2024 9:20 AM EST PAT Pre Anesthesia [address] [place] [address] 2, [facility] [address] [place] [address] DECLINED VV Pre Anesthesia Comment on above: DECLINED VV Start: 01-28-2024 End: 01-28-2024 Patient encounter procedure 01/28/2024 9:45 AM EST Office Visit Orthopaedics [address] [place] [address] Tino Nicholson MD [address] [place] [address] Left arm pain [M79.602] Orthopaedics Comment on above: Left arm pain [M79.602] Start: 01-20-2024 Annual PCP Team Chronic Disease Visit Annual PCP Team Chronic Disease Visit [facility] Start: 12-26-2023 Annual PCP Team Chronic Disease Visit Annual PCP Team Chronic Disease Visit [facility] Start: 11-27-2023 End: 11-27-2023 Patient encounter procedure 11/27/2023 10:20 AM EDT Office Visit Internal Medicine Juan J [address] [facility] [place], [place] [id number] Jorge Madden APRN.[employer] DEVELOPER [address] [place], [place] [id number] 4 week follow up Internal Medicine [place] J Comment on above: 4 week follow up Start: 11-25-2023 Covid-19 Vaccine ( season) Covid-19 Vaccine ( season) [facility] Start: 11-25-2023 Covid-19 Vaccine ( season) Covid-19 Vaccine ( season) [facility] Start: 11-25-2023 [facility] Start: 11-23-2023 End: 11-23-2023 ambulatory Neurology Comment on above: Left arm pain [M79.602] r L UE Start: 11-20-2023 End: 11-20-2023 Patient encounter procedure 11/20/2023 10:40 AM EDT Office Visit Internal Medicine [place] [address] [facility] [place] [address] Jorge Madden APRN.RUBY RAILS DEVELOPER [address] [place], [place] [id number] 4 week follow up Internal Medicine Juan J Comment on above: 4 week follow up Start: 10-22-2023 End: 10-22-2023 ambulatory 10/22/2023 8:15 AM EDT Procedure Neurology [address] [place] [address] belinda CORDOBA Neurology Comment on above: belinda CORDOBA Start: 10-21-2023 ANNUAL PCP TEAM CHRONIC DISEASE VISIT ANNUAL PCP TEAM CHRONIC DISEASE VISIT [facility] Start: 10-19-2023 End: 01-18-2024 25-hydroxyvitamin D3 [Mass/volume] in Serum or Plasma [facility] Comment on above: Expected: 10/19/2023, Expires: Start: 10-19-2023 End: 01-18-2024 Comprehensive metabolic 2000 panel - Serum or Plasma [facility] Work Phone: Comment on above: Expected: 10/19/2023, Expires: Start: 10-19-2023 End: 01-18-2024 Hemoglobin A1c in Blood [facility] Comment on above: Expected: 10/19/2023, Expires: Start: 10-19-2023 End: 01-18-2024 lamoTRIgine [Mass/volume] in Serum or Plasma [facility] Comment on above: Expected: 10/19/2023, Expires: Start: 10-19-2023 End: 01-18-2024 Phenytoin [Mass/volume] in Serum or Plasma [facility] Comment on above: Expected: 10/19/2023, Expires: Start: 10-19-2023 End: 01-18-2024 Thyrotropin [Units/volume] in Serum or Plasma [facility] Comment on above: Expected: 10/19/2023, Expires: Start: 10-19-2023 End: 10-19-2023 Patient encounter procedure 10/19/2023 10:20 AM EDT Office Visit Internal Medicine [place] [address] [place] [address] Jorge Madden APRN.[facility] [address] [place], [place] [phone] 3 month follow up Internal Medicine [place] Comment on above: 3 month follow up Start: 10-08-2023 Subsequent hospital visit by physician 10/08/2023 Hospital Encounter HOSP MAIN [facility] [address] [place] [address] Ceasar Adler MD, PhD [address] [facility] [address] [place] [address] Epilepsy, unspecified, not intractable, without status epilepticus [...] Scan [address] [place] [address] CT BRAIN WO/W IVCON Cat Scan Comment on above: CT BRAIN WO/W IVCON Start: 08-31-2023 End: 11-30-2023 Phenytoin [Mass/volume] in Serum or Plasma PHENYTOIN/DILANTIN Lab Routine Encounter for therapeutic drug monitoring Expected: 08/31/2023, Expires: 11/30/2023 [facility] Work Phone: Comment on above: Expected: 08/31/2023, Expires: Start: 08-27-2023 Subsequent hospital visit by physician 08/27/2023 9:00 AM EDT Hospital Encounter Cat Scan [address] [place] [id number] Canceled (CC cx: Financial) Cat Scan Comment on above: Canceled (CC cx: Financial) Start: 08-06-2023 End: 08-06-2023 Patient encounter procedure 08/06/2023 9:20 AM EDT Office Visit Internal Medicine [place] [address] [place] [address] Jorge Madden APRN.[employer] DEVELOPER [address] [place] [address] Seizure Sunday night; See nurse Triage note Internal Medicine [place] Comment on above: Seizure Sunday night; See nurse Triage n ote Start: 07-20-2023 ANNUAL PCP TEAM CHRONIC DISEASE VISIT ANNUAL PCP TEAM CHRONIC DISEASE VISIT [facility] Start: 06-22-2023 ANNUAL PCP TEAM CHRONIC DISEASE VISIT ANNUAL PCP TEAM CHRONIC DISEASE VISIT [facility] Start: 05-25-2023 ANNUAL PCP TEAM CHRONIC DISEASE VISIT ANNUAL PCP TEAM CHRONIC DISEASE VISIT [facility] Start: 01-19-2023 End: 04-20-2023 25-hydroxyvitamin D3 [Mass/volume] in Serum or Plasma [facility] Work Phone: Comment on above: Expected: 01/19/2023, Expires: Start: 01-19-2023 End: 04-20-2023 Comprehensive metabolic 2000 panel - Serum or Plasma [facility] Work Phone: Comment on above: Expected: 01/19/2023, Expires: Start: 01-19-2023 End: 04-20-2023 Hemoglobin A1c in Blood [facility] Work Phone: Comment on above: Expected: 01/19/2023, Expires: Start: 01-19-2023 End: 04-20-2023 Thyrotropin [Units/volume] in Serum or Plasma [facility] Work Phone: Comment on above: Expected: 01/19/2023, Expires: Start: 01-19-2023 End: 04-20-2023 Thyroxine (T4) free [Mass/volume] in Serum or Plasma [facility] Work Phone: Comment on above: Expected: 01/19/2023, Expires: 4 Start: 01-19-2023 End: 04-20-2023 Triiodothyronine (T3) Free [Mass/volume] in Serum or Plasma [facility] Work Phone: Comment on above: Expected: 01/19/2023, Expires: 4 Start: 12-04-2022 End: 12-18-2022 SARS-CoV-2 (COVID-19) RNA [Presence] in Respiratory specimen by FLOR with probe detection [facility] Work Phone: Comment on above: Expected: 12/04/2022, Expires: 3 Start: 11-24-2022 Covid-19 Vaccine () Covid-19 Vaccine () [facility] Start: 11-24-2022 Influenza vaccination [facility] Start: 09-25-2022 End: 11-25-2022 CBC W Auto Differential panel - Blood CBC + DIFF Lab Routine Encounter for therapeutic drug monitoring Expected: 09/25/2022, Expires: 11/25/2022 [facility] Work Phone: Comment on above: Expected: 09/25/2022, Expires: 3 Start: 09-25-2022 End: 11-25-2022 Comprehensive metabolic 2000 panel - Serum or Plasma COMP METABOLIC PANEL Lab Routine Encounter for therapeutic drug monitoring Expected: 09/25/2022, Expires: 11/25/2022 [facility] Work Phone: Comment on above: Expected: 09/25/2022, Expires: 3 Start: 09-25-2022 End: 11-25-2022 Phenytoin [Mass/volume] in Serum or Plasma PHENYTOIN/DILANTIN Lab Routine Encounter for therapeutic drug monitoring Expected: 09/25/2022, Expires: 11/25/2022 [facility] Work Phone: Comment on above: Expected: 09/25/2022, Expires: 3 Start: 09-22-2022 Influenza vaccination INFLUENZA (#1) [facility] Comment on above: Postponed from 11/24/2021 (Declined at t his time) Start: 09-20-2022 [facility] Start: 07-10-2022 End: 09-09-2022 Bacteria identified in Urine by Culture [facility] Work Phone: Comment on above: Expected: 07/10/2022, Expires: 3 Start: 07-10-2022 End: 09-09-2022 Urinalysis complete panel - Urine [facility] Work Phone: Comment on above: Expected: 07/10/2022, Expires: 3 Start: 06-21-2022 End: 08-21-2022 CHL,GC,TRICH HSV CHL,GC,TRICH HSV Lab Routine Abdominal pain, suprapubic Lower abdominal pain Screen for STD (sexually transmitted disease) Expected: 06/21/2022, Expires: 08/21/2022 [facility] Work Phone: Comment on above: Expected: 06/21/2022, Expires: 3 Start: 06-21-2022 End: 08-21-2022 Comprehensive metabolic 2000 panel - Serum or Plasma [facility] Work Phone: Comment on above: Expected: 06/21/2022, Expires: 3 Start: 06-21-2022 End: 08-21-2022 NUSWAB VAGINITIS PLUS (VG+) W/AILYN 6 SPECIES NUSWAB VAGINITIS PLUS (VG+) W/AILYN 6 SPECIES Lab Routine Abdominal pain, suprapubic Lower abdominal pain Screen for STD (sexually transmitted disease) Expected: 06/21/2022, Expires: 08/21/2022 [facility] Work Phone: Comment on above: Expected: 06/21/2022, Expires: 3 Start: 05-24-2022 End: 07-24-2022 25-hydroxyvitamin D3 [Mass/volume] in Serum or Plasma [facility] Work Phone: Comment on above: Expected: 05/24/2022, Expires: 3 Start: 05-24-2022 End: 07-24-2022 CBC panel - Blood by Automated count [facility] Work Phone: Comment on above: Expected: 05/24/2022, Expires: 3 Start: 05-24-2022 End: 07-24-2022 Comprehensive metabolic 2000 panel - Serum or Plasma [facility] Work Phone: Comment on above: Expected: 05/24/2022, Expires: 3 Start: 05-24-2022 End: 07-24-2022 Hepatitis C virus Ab [Presence] in Serum [facility] Work Phone: Comment on above: Expected: 05/24/2022, Expires: 3 Start: 05-24-2022 End: 07-24-2022 HIV 1+2 Ab [Presence] in Serum or Plasma by Immunoassay [facility] Work Phone: Comment on above: Expected: 05/24/2022, Expires: 3 Start: 05-24-2022 End: 07-24-2022 Lipid 1996 panel - Serum or Plasma [facility] Work Phone: Comment on above: Expected: 05/24/2022, Expires: 3 Start: 05-24-2022 End: 07-24-2022 Phenytoin [Mass/volume] in Serum or Plasma [facility] Work Phone: Comment on above: Expected: 05/24/2022, Expires: 3 Start: 05-24-2022 End: 07-24-2022 Thyrotropin [Units/volume] in Serum or Plasma [facility] Work Phone: Comment on above: Expected: 05/24/2022, Expires: 3 Start: 01-16-2022 Referral to service [facility] Work Phone: Start: 01-16-2022 End: 01-16-2022 Suicide precautions [facility] Work Phone: Start: 01-10-2022 Enteric precautions [facility] Work Phone: Start: 01-10-2022 Suicide precautions [facility] Work Phone: Start: 11-24-2021 Influenza vaccination [facility] Start: 10-13-2021 End: 10-13-2021 Patient encounter procedure 10/13/2021 Office Visit Internal Medicine Jessica Vazquez, BA - [employer] RAILS DEVELOPER [address] [address] [facility] Internal Medicine Start: 04-21-2021 COVID-19 VACCINE (4 - Booster for Moderna series) COVID-19 VACCINE (4 - Booster for Moderna series) [facility] Start: 04-21-2021 COVID-19 VACCINE (4 - Moderna series) COVID-19 VACCINE (4 - Moderna series) [facility] Start: 2021 COLOGUARD (FIT-DNA) COLOGUARD (FIT-DNA) [facility] Start: 2021 Colonoscopy COLONOSCOPY [facility] Start: 2021 COLORECTAL CANCER SCREENING COLORECTAL CANCER SCREENING [facility] Start: [address] COLONOGRAPHY [facility] Start: 2021 DIABETES SCREEN DIABETES SCREEN [facility] Start: 2021 FECAL OCCULT BLOOD FECAL OCCULT BLOOD [facility] Start: 2021 LIPID SCREEN LIPID SCREEN [facility] Start: 2021 Screening for malignant neoplasm of colon [facility] Start: 2021 SIGMOIDOSCOPY SIGMOIDOSCOPY [facility] Start: 2016 Mammography [facility] Start: 2016 Screening for malignant neoplasm of breast Mammogram Screening [facility] Start: 07-26-2011 HPV TESTING HPV TESTING [facility] Start: 07-26-2011 PAP TESTING PAP TESTING [facility] Start: 2011 Diabetes screen Diabetes screen [facility] Start: 2006 Screening for malignant neoplasm of cervix [facility] Start: 2006 Zoledronic acid therapy Alpha-1 Antitrypsin Deficiency Screening [facility] Start: 1997 Screening for malignant neoplasm of cervix Pap smear [facility] Start: 1995 DTaP/Tdap/Td vaccine ( - Tdap) DTaP/Tdap/Td vaccine ( - Tdap) [facility] Start: 1995 Hepatitis B Vaccine (1 of 3 - 19+ 3-dose series) Hepatitis B Vaccine (1 of 3 - 19+ 3-dose series) [facility] Start: 1995 Urine microalbumin profile [facility] Start: 1994 HEPATITIS C SCREENING HEPATITIS C SCREENING [facility] Start: 1994 HIV SCREENING HIV SCREENING [facility] Start: 1994 Spirometry Spirometry [facility] Start: 1988 Depression Monitoring Depression Monitoring [facility] Start: 1982 PNEUMOCOCCAL (1 - PCV) PNEUMOCOCCAL (1 - PCV) [facility] ic Start: 1982 Pneumococcal 0-64 years Vaccine (1 - PCV) Pneumococcal 0-64 years Vaccine (1 - PCV) [facility] Start: 1982 Pneumococcal vaccination Pneumococcal Vaccine (1 - PCV) [facility] Start: 1976 COVID-19 Vaccine (#1) COVID-19 Vaccine (#1) [facility] Start: 1976 HEPATITIS B (1 of 3 - 3-dose series) HEPATITIS B (1 of 3 - 3-dose series) [facility] Start: 1976 Hepatitis B Vaccine (1 of 3 - 3-dose series) Hepatitis B Vaccine (1 of 3 - 3-dose series) [facility] Alanine aminotransfe rase [Enzymatic activity/volume] in Serum or Plasma [facility] Albumin [Mass/volume ] in Serum or Plasma [facility] Albumin [Moles/volum e] in Serum or Plasma [facility] Albumin/Globulin ratio [facility] Alkaline phosphatase [Enzymatic activity/volume] in Serum or Plasma [facility] Anion gap in Serum o r Plasma [facility] Antibody to lupus La protein measurement [facility] Antibody to SS-A measurement [facility] BACTERIAL VAGINOSIS AMPLIFICATION BACTERIAL VAGINOSIS AMPLIFICATION Lab Routine Abdominal pain, suprapubic Lower abdominal pain Screen for STD (sexually transmitted disease) Ordered: 06/21/2022 [facility] Work Phone: Comment on above: Ordered: 06/21/2022 BACTERIAL VAGINOSIS AMPLIFICATION BACTERIAL VAGINOSIS AMPLIFICATION Lab Routine Abdominal pain, suprapubic Screen for STD (sexually transmitted disease) 06/21/2022 3:03 PM EDT [facility] Work Phone: Bilirubin, total measurement [facility] BUN/Creatinine ratio [facility] C. difficile DNA Amplification C. difficile DNA Amplification [facility] Work Phone: Calcium [Mass/volume ] in Serum or Plasma [facility] AILYN / TRICHOMONA S AMPLIFICATION AILYN / TRICHOMONAS AMPLIFICATION Microbiology Routine Abdominal pain, suprapubic Lower abdominal pain Screen for STD (sexually transmitted disease) Ordered: 06/21/2022 [facility] Work Phone: Comment on above: Ordered: 06/21/2022 Carbon dioxide, tota l [Moles/volume] in Central venous blood [facility] Clam IgE Ab [Units/volume] in Serum [facility] Clostridioides diffi cile DNA [Presence] in Unspecified specimen by FLOR with probe detection [facility] Work Phone: Codfish IgE Ab [Units/volume] in Serum [facility] [place] IgE Ab [Units/volume] in Serum [facility] Cow milk IgE Ab [Units/volume] in Serum [facility] Creatinine [Mass/vol ume] in Serum or Plasma [facility] End: 07-21-2023 Ct abdomen & pelvis w/contrast material CT ABD/PEL W IVCON Radiology Routine Colitis Abdominal pain, suprapubic Lower abdominal pain 1 Occurrences starting 06/21/2022 until 07/21/2023 [facility] Work Phone: Comment on above: 1 Occurrences starting 06/21/2022 until 07/21/2023 End: 09-04-2024 CT Head WO and W contrast IV CT BRAIN WO/W IVCON Radiology Routine Seizure disorder (HCC) 1 Occurrences starting 08/06/2023 until 09/04/2024 [facility] Work Phone: Comment on above: 1 Occurrences starting 08/06/2023 until 09/04/2024 End: 09-28-2024 CT Head WO and W contrast IV CT BRAIN WO/W IVCON Radiology Routine Seizure disorder (HCC) 1 Occurrences starting 08/30/2023 until 09/28/2024 [facility] Work Phone: Comment on above: 1 Occurrences starting 08/30/2023 until 09/28/2024 End: 11-17-2024 CT Head WO and W contrast IV CT BRAIN WO/W IVCON Radiology Routine Seizure disorder (HCC) 1 Occurrences starting 10/19/2023 until 11/17/2024 [facility] Comment on above: 1 Occurrences starting 10/19/2023 until 11/17/2024 End: 11-02-2025 CT Head WO contrast CT BRAIN WO IVCON Radiology Routine Seizure disorder (HCC) History of traumatic injury of head Chronic intractable headache, unspecified headache type History of alcohol abuse Family history of seizures 1 Occurrences starting 10/03/2024 until 11/02/2025 [facility] Work Phone: Comment on above: 1 Occurrences starting 10/03/2024 until 11/02/2025 Cytology report of Cervical or vaginal smear or scraping Cyto stain.thin prep [facility] End: 11-20-2024 DBT Breast - bilateral screening SVETA SCREENING W JOSE Radiology Routine Screening mammogram for breast cancer 1 Occurrences starting 10/22/2023 until 11/20/2024 [facility] Work Phone: Comment on above: 1 Occurrences starting 10/22/2023 until 11/20/2024 DNA double strand Ab [Units/volume] in Serum [facility] Egg white RAST [facility] Electrophoresis: [id number] [facility] Electrophoresis: jeniffer ma globulin [facility] End: 07-19-2024 EMG(NEURO/NI) EMG(NEURO/NI) EMG Routine Left arm pain 1 Occurrences starting 07/20/2023 until 07/19/2024 [facility] Work Phone: Comment on above: 1 Occurrences starting 07/20/2023 until 07/19/2024 End: 09-06-2024 EPIL EEG LEAD PLACEMENT EPIL EEG LEAD PLACEMENT NEUROLOGY Routine Seizure disorder (HCC) 1 Occurrences starting 09/07/2023 until 09/06/2024 [facility] Work Phone: Comment on above: 1 Occurrences starting 09/07/2023 until 09/06/2024 End: 05-25-2023 EPIL EEG ROUTINE EPIL EEG ROUTINE NEUROLOGY Routine Seizure disorder (HCC) 1 Occurrences starting 05/24/2022 until 05/25/2023 [facility] Work Phone: Comment on above: 1 Occurrences starting 05/24/2022 until 05/25/2023 End: 10-18-2024 EPIL EEG ROUTINE EPIL EEG ROUTINE NEUROLOGY Routine Seizure disorder (HCC) 1 Occurrences starting 10/19/2023 until 10/18/2024 [facility] Comment on above: 1 Occurrences starting 10/19/2023 until 10/18/2024 EPIL VEEG ADMIT TO EMU/PMU EPIL VEEG ADMIT TO EMU/PMU NEUROLOGY Routine Seizure disorder (HCC) Ordered: 09/07/2023 [facility] Comment on above: Ordered: 09/07/2023 Erythrocyte mean corpuscular volume determination [facility] Gastrointestinal pathogens panel - Stool by FLOR with probe detection [facility] Work Phone: Globulin measurement [facility] Glucose [Mass/volume ] in Serum or Plasma [facility] Hematocrit [Volume Fraction] of Blood [facility] Hemoglobin [Mass/vol ume] in Blood [facility] Hepatitis A virus Ig M Ab [Presence] in Serum [facility] Hepatitis B core ant ibody measurement, IgM type [facility] Hepatitis B surface antigen measurement [facility] Hepatitis C antibody measurement [facility] HPV MRNA W/REFLEX TO GENOTYPES 16, 18/45 HPV MRNA W/REFLEX TO GENOTYPES 16, 18/45 Lab Routine Screening for HPV (human papillomavirus) Ordered: 06/21/2022 [facility] Work Phone: Comment on above: Ordered: 06/21/2022 IgA [Mass/volume] in Serum or Plasma [facility] IgE [Units/volume] i n Serum or Plasma [facility] IgG [Mass/volume] in Serum or Plasma [facility] IgM [Mass/volume] in Serum or Plasma [facility] Influenza virus A an d B RNA and SARS-CoV-2 (COVID-19) N gene panel - Respiratory specimen by FLOR with probe detection COVID WITH FLUA+B, ROUTINE Microbiology Routine Sinobronchitis Ordered: 05/09/2022 [facility] Work Phone: Comment on above: Ordered: 05/09/2022 INR in Blood by Coagulation assay [facility] Laboratory data interpretation [facility] Leukocytes [#/volume ] in Blood [facility] End: 06-23-2023 SVETA SCREENING SVETA SCREENING Radiology Routine Encounter for screening mammogram for breast cancer 1 Occurrences starting 05/24/2022 until 06/23/2023 [facility] Work Phone: Comment on above: 1 Occurrences starting 05/24/2022 until 06/23/2023 Mean corpuscular hemoglobin concentration determination [facility] Mean corpuscular hemoglobin determination [facility] Measurement of renal function [facility] Mycobacterium tuberculosis tuberculin stimulated gamma interferon [Presence] in Blood [facility] Neutrophil count [facility] Neutrophil cytoplasm ic Ab.classic [Units/volume] in Serum [facility] Neutrophil percent differential count [facility] P-ANCA measurement [facility] PAP TEST PAP TEST Lab [facility] Wellness examination Screening for HPV (human papillomavirus) 06/21/2022 11:11 AM EDT [facility] Work Phone: Path report.final Dx Spec [facility] Patient Education [facility] Work Phone: Patient referral [facility] Work Phone: Peanut IgE Ab [Units/volume] in Serum [facility] End: 08-05-2024 Phenytoin [Mass/volume] in Serum or Plasma PHENYTOIN/DILANTIN Lab Routine Seizure disorder (HCC) Once per week for 52 Occurrences starting 08/06/2023 until 08/05/2024, 1 completed [facility] Comment on above: Once per week for 52 Occurrences startin g 08/06/2023 until 08/05/2024, 1 completed Platelets [#/volume] in Blood [facility] End: 07-19-2024 Polysomnogram POLYSOMNOGRAM (PSG) Procedures Routine MAI (obstructive sleep apnea) 1 Occurrences starting 07/20/2023 until 07/19/2024 [facility] Comment on above: 1 Occurrences starting 07/20/2023 until 07/19/2024 Potassium measurement [facility] Protein electrophore sis panel - Serum or Plasma [facility] Red blood cell count [facility] Red cell distributio n width determination [facility] Scallop RAST [facility] Serum chloride measurement [facility] Sesame seed RAST [facility] Shrimp IgE Ab [Units/volume] in Serum [facility] Sodium measurement [facility] Soybean IgE Ab [Units/volume] in Serum [facility] Tissue transglutamin ase IgA Ab [Units/volume] in Serum [facility] Total protein measurement [facility] UA DIP B/O UA DIP B/O Lab R outine Abdominal pain, suprapubic Ordered: 06/21/2022 [facility] Work Phone: Comment on above: Ordered: 06/21/2022 Urea nitrogen [Mass/volume] in Serum or Plasma [facility] End: 06-05-2024 US Abdomen RUQ US ABD RIGHT UPPER QUADRANT Radiology Routine Alkaline phosphatase elevation 1 Occurrences starting 05/07/2023 until 06/05/2024 [facility] Work Phone: Comment on above: 1 Occurrences starting 05/07/2023 until 06/05/2024 End: 11-19-2023 US AXILLA ONLY LEFT US AXILLA ONLY LEFT Radiology Routine Mass of left axilla 1 Occurrences starting 10/20/2022 until 11/19/2023 [facility] Work Phone: Comment on above: 1 Occurrences starting 10/20/2022 until 11/19/2023 US Pelvis [facility] US Pelvis transvaginal [facility] Wheat IgE Ab [Units/volume] in [facility] Immunizations Immunization Date Immunization Notes Care Provider Fa [facility] 11-27-2023 influenza, seasonal, injectable Jorge Madden APRN.[employer]EL[employer] Work Phone: [facility] 11-27-2023 influenza virus vaccine, unspecified formulation Gonzalo Tyson Jr., MD Work Phone: [facility] 01-19-2023 influenza, injectabl e, quadrivalent, contains preservative Jorge Maryanne 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: [facility] Work Phone: 01-19-2023 pneumococcal (PCV20) vaccine, 20 valent (PREVNAR 20) Jorge Maryanne 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: [facility] Work Phone: 01-19-2023 pneumococcal Conjuga te, unspecified formulation Jorge Maryanne 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: [facility] Work Phone: 01-19-2023 influenza virus vaccine, unspecified formulation Jorge Maryanne 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: [facility] 02-06-2021 influenza, injectabl e, quadrivalent, preservative free Jorge Maryanne 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: [facility] Work Phone: 02-06-2021 influenza virus vaccine, unspecified formulation Joslyn Fuentes RN [facility] Payers Date Payer Category Payer Self-pay [id number] 2022 Medicaid [id number] 2022 Private Health Insurance HUMANA HUMANA MEDICAID [facility] [id number] 2022-Present [address] [address] [place] [address] Medicaid [id number] 2016 Medicaid [id number] 2016 Unknown [facility] [id number] 1976 Unknown [id number] 1976 Unknown [id number] 1976 Unknown [id number] 903 Unknown [id number] Unknown [id number] 462 Unknown [id number] 462 Unknown [id number] 462 Unknown [id number]. 462 Unknown [id number]. 462 Unknown [id number]. 462 Unknown [id number] 462 Unknown [id number] 462 Social History Date Type Detail Facility Start: 10-11-2021 End: 01-28-2024 Tobacco smoking status UTIS Smokes tobacco daily [facility] History of tobacco use Cigarette Smoker S [facility] Work Phone: Start: 10-11-2021 End: 10-03-2024 Cigarettes smoked current (pack per day) - Reported 1 [employer] Work Phone: Start: 10-11-2021 End: 01-28-2024 Tobacco use and exposure Smokeless tobacco non-user [employer] Work Phone: Start: 10-11-2021 Alcohol intake Ex-drinker (finding) [employer] Work Phone: Start: 1975 Sex Assigned At Not on file S [facility] Work Phone: Start: 10-01-2021 End: 10-11-2021 Exposure to SARS-CoV-2 (event) Yes [employer] Work Phone: Tobacco smoking status No Smokin g Status Entered [facility] Start: 1975 Sex Assigned At Female A [facility] Start: 01-10-2022 End: 10-23-2022 Tobacco smoking status NHIS Unknown if ever smoked [facility] Start: 05-09-2022 End: 10-03-2024 Alcohol intake Current drinker of alcohol (finding) [facility] Start: 05-09-2022 Tobacco Comment 'a few per day' [facility] Start: 10-20-2022 End: 10-03-2024 Tobacco use panel [facility] Start: 01-02-2023 Tobacco smoking stat us NHIS Current Heavy tobacco smoker [facility] NEGATED: Highlighted row [facility] Functional Status Date Assessment Result Facility 10-25-2021 Functional Status Activity Assistance Ind ependent [facility] 10-25-2021 Functional Status Done [facility] 10-25-2021 [facility] 10-24-2021 Functional Status yes, form complete [facility] 10-23-2021 Functional [facility] 10-20-2021 Functional Status Breakfast Percent 100 A [facility] 10-20-2021 Functional Status [facility] 10-19-2021 Functional [facility] 10-18-2021 Functional [facility] Mental Status Date Assessment Result Facility 08-28-2022 Cognitive function Level Of Cons ciousness Awake;Alert;Appropriate;Follow s Commands [facility] Work Phone: 10-25-2021 Mental Status Orientation Oriented x 4 [facility] 10-25-2021 Mental Status [facility] 10-25-2021 Mental Status [facility] Clinical Notes 07-19-2006 to 10-03-2024 Gonzalo Tyson [...] performed on 12/10/23 for possible seizure at [facility] showed per report: This routine EEG is [...] CT brain on 09/03/23 per rad report ([facility]): Nondiagnostic examination, the patient was unable to [...] lights - especially in the stores like [employer]. States lights make her dizzy and makes [...] dysarthria; comprehension, naming, repetition intact. Short and [facility] memory intact. CN: PERRL, fundi with no [...] Gonzalo Tyson MD documented in this encounter [facility] 09-22-2024 Note HNO ID: [id number] Author: CLAU ABEBE PA-C Service: ? Author Type: Physician Music Journalist Type: Progress Notes Filed: 09/22/2024 14:51 Note Text: Clau Abebe PA-C Department of Orthopaedics Orthopaedics [address] [facility] [address] Dept: [phone] Dept September 22, 2024 CHIEF COMPLAINT: Post [...] Latex This note was partially generated using [employer] voice recognition system, and there may be some incorrect words, spellings, and punctuation that were not noted in checking the note before saving. Clau Abebe PA-C [facility] 09-22-2024 History of Presen t illness Narrative Clau Abebe PA-C Department of Orthopaedics Orthopaedics [address] [facility] [address] Dept: [phone] Dept September 22, 2024 CHIEF COMPLAINT: Post [...] Latex This note was partially generated using [employer] voice recognition system, and there may be [...] calamine lotion helps. documented in this encounter [facility] 09-22-2024 Note HNO ID: [id number] Author: MAXINE VIEIRA MA Service: ? Author Type: Insurance Investigator Type: Progress Notes Filed: 09/22/2024 14:51 Note [...] Has been applying OTC calamine lotion helps. [facility] 08-14-2024 Note HNO ID: [id number] Author: ?, ?, ? Service: ? Author Type: ? Type: Progress Notes Filed: 08/14/2024 12:16 Note Text: Jorge Madden put a consult to Gastro in on 07/28/24 for a colonoscopy consult and per note: Patient wants to see [facility] affiliated provider [facility] 08-13-2024 Note Patient Outreach ( WSTR) CATHY CAM ([id number]) 1975 F Date Time Provider Department 08/13/24 JORGE MADDEN ASWSTR During your visit today, we recorded the following information about you: Estephanie Eubanks 08/14/2024 12:16 PM Signed Jorge Madden put a consult to Gastro in on 07/28/24 for a colonoscopy consult and per note: Patient wants to see [facility] affiliated provider Allergies As of Date: 08/13/2024 [...] Date Reviewed: 07/28/2024 Reviewed by: Jorge Madden APRN.RU[employer]S DEVELOPER - Fully Assessed Reason for Visit: Outpatient [...] Encounter Status:Closed by ESTEPHANIE EUBANKS on 08/14/24 [facility] 07-30-2024 Telephone encounter Note Shakira noted, reviewed it, 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 Report printed from [place]. No need for signed release. On PCP desk for review. [facility]- reports pt wants her US results, done recently, at [facility], faxed to Jorge. Reports Jorge's office would need to have patient sign a release with Jorge's office, and the office would need to fax the release along with the request for US results, to [facility] at fax # [phone]. Asked [facility] if they could have patient sign the release and fax the results to Jorge. [facility] state they can, but they thought maybe Jorge's office already had the release, and they would have to have patient return to their office to sign the release. documented in this encounter [facility] 07-30-2024 Telephone encounter Note Report printed from [place]. No need for signed release. On PCP desk for review. [facility] 07-30-2024 Telephone encounter Note [facility]- reports pt wants her US results, done recently, at [facility], faxed to Jorge. Reports Jorge's office would need to have patient sign a release with Jorge's office, and the office would need to fax the release along with the request for US results, to [facility] at fax # [phone]. Asked [facility] if they could have patient sign the release and fax the results to Jorge. [facility] state they can, but they thought maybe Jorge's office already had the release, and they would have to have patient return to their office to sign the release. [facility] 07-29-2024 Radiology Diagnostic study note [facility] Imaging Services [address] [place] [address] Pelvic w/ Transvaginal MR#: [id number] Acct: [id number] Name: CATHY CAM Rep #: [id number] : 1975 F 49 From: Colette Walton MD PCP: KISHAN Katz Status: REG CLI Study:Pelvic w/ Transvaginal Date of Exam: 07/29/24 Exam# [id number] Ordering Dr: Princess Blake NP PROCEDURE: PELVIC [...] endometrial cavity. Slightly low positioning questioned by pickle maker on real-time scanning, difficult to confirm on [...] endometrial cavity. Slightly low positioning questioned by pickle maker on real-time scanning, difficult to confirm on still images obtained. Correlate with exam and consider a repeat exam with transabdominal and transvaginal cine clips as indicated. 2. Additional description as above. Reading Location: [id number] CC: KISHAN Blake; KISHAN Madden ~ Studio Sales Associate: Signed [facility] 07-28-2024 Evaluation note Diagnosis Onset Date Resolution Pelvic pain acute July 28, 2024 11:16am IUD check up noneactive July 28 11:16am [facility] Work Phone: 1(132) 828-888505-05-2025 Evaluation note* Diagnosis Onset Date Resolution Status Admit Date Pelvic pain acute July 28, 2024 11:16am IUD check up noneactive July 28 11:16am Abdominal pain acute September 23, 2024 10:22am Alcohol abuse acute September 23, 025 10:22am [facility] Work Phone: 1(634) 400-648605-05-2025 Evaluation note* Diagnosis Onset Date Resolution Status Admit Date Pelvic pain acute July 28, 2024 11:16am IUD check up noneactive July 28 11:16am Abdominal pain acute September 23, 2024 10:22am Alcohol abuse acute September 23, 025 10:22am Encounter for screening colonoscopy acute September 23, 2024 1 0:22am [facility] Work Phone: 1(869) 662-710405-05-2025 NoteHNO ID: [id number] Author: JORGE MADDEN APRN.[facility] Service: ? Author Type: Nurse Practitioner Type: [...] Anxiety bad right now. Follow up with corncob pipe manufacturing supervisor, concerned that IUD might of fallen out. [...] normal. Judgment: Judgment normal. (more content not included)...[facility]05-05-2025 History of Present illness Narrative* Jorge Madden APRN.[facility] - 07/28/2024 9:26 AM EDT SUBJECTIVE Cathy [...] No other seizure activity noted. Seeing the [facility] for mental health care. Anxiety bad right now. Follow up with corncob pipe manufacturing supervisor, concerned that IUD might of fallen out. [...] medications.. Jorge Madden APRN-JOSE documented in this encounterCommunity [facility]03-14-[facility]25 Progress note* Result Encounter Note - Jennifer Agarwal APRN.CNS - 06/06/2024 4:16 PM EDT 06/02 OV [facility] Miscellaneous Notes* Result Encounter Note - Jennifer Agarwal APRN.CNS - 06/06/2024 4:16 PM EDT 06/02 OV documented in this encounterCommunity [facility] Medical Center03-10-2025 Instructions* Patient Instructions* Jorge Maddne APRN.CNP - 06/02/2024 7:33 AM EDT For [...] in at 4 weeks. documented in this encounterCommunity Regional Medical Center03-10-2025 NoteHNO ID: [id number] Author: JORGE MADDEN APRN.CNP Service: ? Author [...] see neurology. She was planning to see [facility]ad but not able to get in [...] deficit present. Mental Status: (more content not included)...[facility] 06-02-2024 History of Present illness Narrative* Jorge Madden APRN.RUBY RAILS DEVELOPER - 06/02/2024 7:17 AM EDT SUBJECTIVE Cathy [...] see neurology. She was planning to see [facility] but not able to get in until [...] ICD9: 345.90, ICD10: G40.909 See if [facility] [place] neuro can get her seen. Repeat levels. [...] medications.. Jorge Madden APRN-JOSE documented in this encounterCommunity [facility] Center02-10-2025 Telephone encounter Note * Telephone Encounter [...] bedtime. Authorizing Provider: JUAN C VILLARREAL MD [facility]-10[facility]25 Miscellaneous Notes* Telephone Encounter - Juan [...] 05, 2024 11:25 AM documented in this encounterCommunity [facility] Medical Center02-10-2025 Telephone encounter Note * Telephone Encounter - Dahlia Amezquita LPN - 05/05/2024 11:21 AM EST Pt switched pharmacy to [place]. Dahlia Amezquita LPN The patient has been [...] Amezquita LPN May 05, 2024 11:25 AM [facility] Telephone encounter Note* Telephone Encounter - Dahlia Amezquita LPN - 2024 10:19 AM EST Closed in error. See message below from pt. Dahlia Amezquita LPN [facility]01-17[facility]25 Miscellaneous Notes* Telephone Encounter - Dahlia [...] if missing any doses. documented in this encounterCommunity [facility] Medical Center01-17-2025 Telephone encounter Note * Telephone Encounter [...] done. Please advise pt. Dahlia Amezquita LPN [facility]01-17-[facility]25 Telephone encounter Note* Telephone Encounter - Dahlia Amezquita LPN - 2024 10:16 AM EST ----- Message from Jennifer Vargas APRN.ROSE GRADER sent at 2024 7:36 AM EST ----- Please let her know that phenytoin level is decreased. Check to see if missing any doses. [facility] Telephone encounter Note* Telephone Encounter - Candis Gallagher LPN - 03/03/2024 2:34 PM EST Patient called back and states she is currently on a lot of medications and antibiotics and she is not feeling well so she will not be able to reschedule her surgery until the beginning of the year or later. Candis Gallagher LPN [facility]12-09-[facility]24 Miscellaneous Notes* Telephone Encounter - Candis [...] reschedule. Gris Martines LPN documented in this encounterCommunity Regional Medical Center12-06-2024 Telephone encounter Note * Telephone Encounter - Kourtney Todd MA - 02/29/2024 9:12 AM EST I called and left a message for the patient to contact the office. Please transfer to Ortho. [facility]12-[facility] Telephone encounter Note* Telephone Encounter - Gris Martines LPN - 02/28/2024 10:04 AM EST Patient called. Verified name and date of . States she is not feeling well and cancelled surgery scheduled for tomorrow and needs to reschedule. Gris Martines LPN [facility]12-05[facility] History of Present illness Narrative* Jennifer Agarwal APRN.ROSE GRADER - 02/28/2024 7:20 AM EST [place] Cam [...] Abs Lymph 1.00 - 4.00 k/uL 2.84 [place]% % 5.7 Abs [place] <0.87 k/uL 0.40 Eosin% % 2.0 Abs [...] Level: 4 - Moderate documented in this encounterCommunity Regional Medical Center12-05-2024 NoteHNO ID: [id number] Author: JENNIFER AGARWAL APRN.ERIN Service: ? Author [...] Abs Lymph 1.00 - 4.00 k/uL 2.84 [place]% % 5.7 Abs [place] <0.87 k/uL 0.40 Eosin% % 2.0 Abs [...] contact orthopedics to reschedule surgery. Jennifer Agarwal APRN.ROSE GRADER Medical Decision Making: Problems: Low: Acute, uncomplicated illness or injury and Stable chronic illness Data: Unique test result(s) reviewed: 3+ Risk: Moderate: Drug management Medical Decision Making Level: 4 - [facility]erateC[facility] Telephone encounter Note* Telephone Encounter - Maxine Vieira MA - 02/26/2024 4:30 PM EST Case message sent to [place] [facility] schedulers. [facility] Miscellaneous Notes* Telephone Encounter - Maxine Vieira MA - 02/26/2024 4:30 PM EST Case message sent to [place] [facility] schedulers. * Telephone Encounter - Asuncion Castro - 02/26/2024 3:42 PM EST Pt would like to cancel her surgery 02/28 due to illness documented in this encounterCommunity Regional Medical Center12-03-2024 Telephone encounter Note * Telephone Encounter - Asuncion Castro - 02/26/2024 3:42 PM EST Pt would like to cancel her surgery 02/28 due to illness [facility]11-26-[facility]24 Telephone encounter Note* Telephone Encounter - Teri Llanos LPN - 02/19/2024 10:10 AM EST PATIENT NOTIFIED OF SAME. [facility] Miscellaneous Notes* Telephone Encounter - Teri [...] for inhaler to be sent to [facility]. Pended. Reason for Disposition Cough Answer Assessment [...] home often. Protocols used: Cough - Acute Yxmbjfllap-XFSTU-EU documented in this encounterCommunity Regional Medical Center11-26-2024 Telephone encounter Note * Telephone Encounter - Jorge Madden APRN.CNP - 02/19/2024 10:07 AM EST Let her know I sent in the refill, okay for home care and if symptoms persist then needs to come into be seen either with our department or EC. [facility] Telephone encounter Note* Telephone Encounter - Sebastien Morales RN - 02/19/2024 9:26 AM EST Patient calls for cough that is worse than her usual. Nurse triage recommends homecare. Reviewed care advice with patient. Patient reports provider usually orders something more when she gets like this. Requests provider review. Also requests an order for inhaler to be sent to [facility]. Pended. Reason for Disposition Cough Answer Assessment [...] home often. Protocols used: Cough - Acute Nvwicrjkeb-YAXIY-ZT [facility]11-20-2024 Telephone encounter Note* Telephone Encounter - Candis Gallagher LPN - 02/13/2024 4:01 PM EST Patient called in and states she would like to wait until the first of the year to complete physical therapy as she has a lot of upcoming appointments already. Candis Gallagher LPN [facility]11-20-2024 Miscellaneous Notes* Telephone Encounter - Candis Gallagher LPN - 02/13/2024 4:01 PM EST Patient called in and states she would like to wait until the first of the year to complete physical therapy as she has a lot of upcoming appointments already. Candis Gallagher LPN documented in this encounterCommunity [facility] Medical Center11-20-2024 Telephone encounter Note * Telephone Encounter - Candis Gallagher LPN - 02/13/2024 3:54 PM EST Patient called and has a PACC appt at [place] tomorrow but she is unable to make it to [place] and would like to be rescheduled at the [place] location. Please reach out to patient to reschedule tomorrows PACC appt. Candis Gallagher LPN [facility]11-20-2024 Miscellaneous Notes* Telephone Encounter - Candis Gallagher LPN - 02/13/2024 3:54 PM EST Patient called and has a PACC appt at [place] tomorrow but she is unable to make it to [place] and would like to be rescheduled at the [place] location. Please reach out to patient to reschedule tomorrows PACC appt. Candis Gallagher LPN documented in this encounterCommunity Regional Medical Center11-07-2024 Telephone encounter Note * Telephone Encounter - Kourtney Todd MA - 01/31/2024 4:25 PM EST Surgery has been scheduled as requested. [facility] Miscellaneous Notes* Telephone Encounter - Kourtney Todd MA - 01/31/2024 4:25 PM EST Surgery has been scheduled as requested. * Telephone Encounter - Maxine Vieira MA - 01/30/2024 10:43 AM EST Patient scheduled for Left CTR on 02/29/24. Surgical request completed. Post op appointments scheduled and mailed to the patient. documented in this encounterCommunity Regional Medical Center11-06-2024 Telephone encounter Note * Telephone Encounter - Maxine Vieira MA - 01/30/2024 10:43 AM EST Patient scheduled for Left CTR on 02/29/24. Surgical request completed. Post op appointments scheduled and mailed to the patient. [facility] Telephone encounter Note* Telephone Encounter - Rene Pinzon RN - 01/29/2024 8:24 AM EST Pt was seen 11/27/23 by Jorge Madden [facility]11-05[facility]2024 Miscellaneous Notes* Telephone Encounter - Rene [...] LPN * Telephone Encounter - Jorge Madden APRN.RUBY RAILS DEVELOPER - 11/06/2023 10:15 AM EDT I was [...] and was going to do it at [facility] on Sunday morning. Crystal received a call from [facility] telling her that her insurance denied it. Pt put in an appeal with her insurance for it. Pt states Jorge may have to speak with them. documented in this encounterCommunity Regional Medical Center11-04-2024 NoteHNO ID: [id number] Author: TINO NICHOLSON MD Service: ? Author Type: Physician Type: Progress Notes Filed: 01/28/2024 12:48 Note Text: Tino Nicholson MD Department of Orthopaedics Orthopaedics [address] [facility] [address] Dept: [phone] Dept January 28, 2024 CHIEF COMPLAINT: New [...] subacromial bursa Informed Consent Consent Obtained: Verbal [place] Protocol A moment to CARE was completed. [...] Care Visit completed when (more content not included)...[facility] 01-28-2024 History of Present illness Narrative* Tino Nicholson MD - 01/28/2024 10:30 AM ESTAssociated Order(s): Large Joint Arthro/Inj: L subacromial bursa Post-Procedure Diagnose(s): Left arm pain; Shoulder impingement Tino Nicholson MD Department of Orthopaedics Orthopaedics [address] [place] [address] Dept: [phone] Dept January 28, 2024 CHIEF COMPLAINT: New [...] subacromial bursa Informed Consent Consent Obtained: Verbal [place] Protocol A moment to CARE was completed. [...] acute fractures seen of the left shoulder Studio Sales Associate: PSCB Transcribe Date/Time: Apr 22 2023 5:02P [...] physician via US mail. Jorge Madden [address] [address] Tino Nicholson MD documented in this encounterCommunity Regional Medical Center10-18-2024 Telephone encounter Note * Telephone Encounter [...] Dickson RN January 11, 2024 10:08 AM [facility]-18[facility]24 Miscellaneous Notes* Telephone Encounter - Harleen [...] 11, 2024 10:08 AM documented in this encounterCommunity Regional Medical Center09-25-2024 Telephone encounter Note * Telephone Encounter - eTri Llanos LPN - 12/19/2023 4:35 PM EDT PATIENT NOTIFIED OF SAME. [facility]09-25[facility]24 Miscellaneous Notes* Telephone Encounter - Teri [...] see if we can get EEG from [facility]? I do not have results. * Telephone Encounter - Katia Maldonado LPN - 12/19/2023 3:19 PM EDT Pt asking if pcp received the test she had done last week at [facility]. EEG? Katia Maldonado LPN documented in this encounterCommunity Regional Medical Center09-25-2024 Telephone encounter Note * Telephone Encounter - Jorge Madden APRN.CNP - 12/19/2023 4:17 PM EDT EEG showed no issues, no seizure activity captured with the test. Please let her know. Thanks!! [facility]09-25-[facility] Telephone encounter Note* Telephone Encounter - Jorge Madden APRN.CNP - 12/19/2023 3:58 PM EDT Can we see if we can get EEG from [facility]? I do not have results. [facility] Telephone encounter Note* Telephone Encounter - Gris Yang - 12/19/2023 3:32 PM EDT Patient transferred to [facility] to schedule orthopeadic consult. This has been completed. Patient wanted to notify PCP that [facility] neuro is scheduling out to September 2024. She declined to schedule with Epilepsy center due to transportation issues and no [facility] neuro epilepsy providers [place]. PSS advised patient to contact insurance to discuss options of non [facility] neuro specialists in her area. Patient will call back to notify office where referral is to be sent. [facility]24 Miscellaneous Notes* Telephone Encounter - Gris Yang - 12/19/2023 3:32 PM EDT Patient transferred to [facility] to schedule orthopeadic consult. This has been completed. Patient wanted to notify PCP that [facility] neuro is scheduling out to September 2024. She declined to schedule with Epilepsy center due to transportation issues and no [facility] neuro epilepsy providers within [place]. PSS advised patient to contact insurance to discuss options of non [facility] neuro specialists in her area. Patient will call back to notify office where referral is to be sent. documented in this encounterCommunity Regional Medical Center09-25-2024 Telephone encounter Note * Telephone Encounter - Katia Maldonado LPN - 12/19/2023 3:19 PM EDT Pt asking if pcp received the test she had done last week at [facility]. EEG? Katia Maldonado LPN [facility] Telephone encounter Note* Telephone Encounter - Sebastien Morales RN - 11/28/2023 8:54 AM EDT Patient calls and notified of results and providers instructions. Patient verbalizes understanding. Sebastien Morales RN [facility]09-04-2024 Miscellaneous Notes* Telephone Encounter - Sebastien [...] time, Jorge Madden APRN.CNP documented in this encounterCommunity Regional Medical Center09-04-2024 Telephone encounter Note * Telephone Encounter - Jorge Madden APRN.CNP - 11/28/2023 8:33 AM EDT Please let patient know dilantin level is in the normal range, no changes in her medication are needed at this time, Jorge Madden APRN.CNP [facility]09-03-20[facility] Instructions* Patient Instructions* Jorge Madden APRN.CNP - 11/27/2023 10:42 AM EDT [facility] Address: [address] [place] [address], [address] [place] [address] documented in this encounterCommunity Regional Medical Center09-03-2024 NoteHNO ID: [id number] Author: JORGE MADDEN APRN.CNP Service: ? Author [...] bad. Forgetful, short term things cannot remember. residential is fine. Did not start Lamictal. Has [...] open wound in middle (more content not included)...[facility]09-03-2024 History of Present illness Narrative* Jorge Madden APRN.RUBY RAILS DEVELOPER - 11/27/2023 10:37 AM EDT Images from [...] bad. Forgetful, short term things cannot remember. residential is fine. Did not start Lamictal. Has [...] planning to get EEG, follow up with [facility] neuro. - CONSULT TO NEUROLOGY - PHENYTOIN/DILANTIN [...] medications.. Jorge Madden APRN-JOSE documented in this encounterCommunity Regional Medical Center08-30-2024 Progress note* Result Encounter Note - Jorge Madden APRN.CNP - 11/23/2023 2:30 PM EDT Plan to go over result at up coming follow up appointment. [facility]30[facility] Miscellaneous Notes* Result Encounter Note - Jorge Madden APRN.JOSE - 11/23/2023 2:30 PM EDT Plan to go over result at up coming follow up appointment. documented in this encounterCommunity Regional Medical Center08-30-2024 NoteHNO ID: [id number] Author: FLOYD MACKENZIE DO Service: ? Author [...] Care Visit completed when applicable. Floyd Mackenzie [facility]08-30-2024 History of Present illness Narrative* Floyd [...] applicable. Floyd Mackenzie DO documented in this encounterCommunity Regional Medical Center08-27-2024 Telephone encounter Note * Telephone Encounter - Joreg Madden APRN.CNP - 11/20/2023 7:48 AM EDT Yes, okay for both since we are monitoring levels and response closely. We can discuss further withher follow up. [facility]08-27-2024 Miscellaneous Notes* Telephone Encounter - Jorge [...] start taking the lamictal. documented in this encounterCommunity Regional Medical Center08-26-2024 Telephone encounter Note * Telephone Encounter [...] Pt agreeable to start taking the lamictal. [facility] Telephone encounter Note* Telephone Encounter - Estephanie Eubanks - 11/07/2023 10:06 AM EDT Spoke with patient to schedule Neurology appt, she requested we call back later today. [facility]-13-[facility]24 Telephone encounter Note* Telephone Encounter - Ghazala Lauren LPN - 11/06/2023 2:49 PM EDT Please schedule EMG and neuro appointment per Jorge Madden. Patient notified of recommendations, patient verbalized understanding. Ghazala Lauren LPN [facility]08-13-[facility] Telephone encounter Note* Telephone Encounter - [...] EEG and have follow up with neurology. [facility]-08-[facility] Telephone encounter Note* Telephone Encounter - Rene Pinzon RN - 11/01/2023 10:40 AM EDT Pt was supposed to have a CT scan of the brain and was going to do it at [facility] on Sunday. Crystal received a call from [facility] telling her that her insurance denied it. Pt put in an appeal with her insurance for it. Pt states Jorge may have to speak with them. [facility]29[facility] Telephone encounter Note* Telephone Encounter - Teri Llanos LPN - 10/22/2023 12:44 PM EDT Mammogram order has been faxed. [facility] Miscellaneous Notes* Telephone Encounter - Teri [...] mammogram orders and send the orders to [facility]. Please advise pt when orders have been [...] making any other adjustments. documented in this encounterCommunity Regional Medical Center07-29-2024 Telephone encounter Note * Telephone Encounter - Jorge Madden APRN.JOSE - 10/22/2023 11:46 AM EDT Please send order, thanks! [facility]-29-2024 Telephone encounter Note* Telephone Encounter - Dahlia Amezquita LPN - 10/22/2023 11:04 AM EDT Spoke with pt and information listed below given. Pt verbalizes understanding. Pt reports she has only missed (1) dose of medication. Pt asking for mammogram orders and send the orders to [facility]. Please advise pt when orders have been faxed. Please review order pending. Dahlia Amezquita LPN [facility]-29-[facility] Telephone encounter Note* Telephone Encounter - Teri Llanos LPN - 10/22/2023 11:04 AM EDT LEFT MESSAGE FOR PATIENT TO CALL OFFICE. [facility] Telephone encounter Note* Telephone Encounter - [...] Lamicital helps before making any other adjustments. [facility]-26-[facility] Telephone encounter Note* Telephone Encounter - Jennifer Castillo RN - 10/19/2023 3:16 PM EDT Kourtney Cummings called and is notified of providers message and instructions. She voices understanding. Jennifer Castillo RN [facility]07-26-2024 Miscellaneous Notes* Telephone Encounter - Jennifer [...] starting the medications together. documented in this encounterCommunity Regional Medical Center07-26-2024 Telephone encounter Note * Telephone Encounter - Jorge Madden APRN.CNP - 10/19/2023 3:03 PM EDT Yes, please return call and let them know okay to start the low dose of Lamictal to try and get better control of her seizures. [facility]-26-[facility] Telephone encounter Note* Telephone Encounter - [...] this prior to starting the medications together. [facility]07-26-2024 NoteHNO ID: [id number] Author: JORGE MADDEN APRN.JOSE Service: ? Author [...] Normal pulses. Heart sounds (more content not included)...[facility]07-26-2024 History of Present illness Narrative* Jorge [...] get a better CT, will try at [facility]. Get EEG and needs to follow up [...] medication.. Jorge Madden APRN-JOSE documented in this encounterCommunity Regional Medical Center06-14-2024 Telephone encounter Note * Telephone Encounter - Michelle Alvarez LPN - 09/07/2023 2:19 PM EDT [facility] asking for a new rx [...] Alvarez LPN September 07, 2023 2:25 PM [facility] Miscellaneous Notes* Telephone Encounter - Michelle Alvarez LPN - 09/07/2023 2:19 PM EDT [facility] asking for a new rx [...] 07, 2023 2:25 PM documented in this encounterCommunity Regional Medical Center06-14-2024 History of Present illness Narrative* Liz Meadows APRN.JOSE - 09/07/2023 1:23 PM EDT [facility] Records Patient: Cathy Cam Address: [address] [id number] Impression: Review of records for Cathy Cam, a 48 year old female, being referred by Jorge Madden CNP [PCP, [facility] [place]] to Any Epileptologist for further evaluation and [...] disorder, depression, ETOH abuse, smoker, PRIOR EVALUATIONS: [address] [place] [address] EEG ([facility], 09/25/2022): Normal study. There no seizures or focal/lateralized or epileptiform abnormalities. MRI brain wo/w contrast (NA): RAFY Recommendations: - Admit to U for VEEG monitoring, diagnostic evaluation Location: [facility] - Visit with epileptologist prior to admission - Additional testing to be considered by epilepsy clinicians Signed: Liz Meadows APRN.RUBY RAILS DEVELOPER September 07, [address] Mondragon for review and recommendations. Recommendations (as discussed with Dr. Mondragon): - Please proceed with the above plan. Please route this encounter to the EMU Scheduling Pool (P EMU) or PMU Scheduling Pool (P PMU) through LOS & Follow up PHASE 1.0 AND 1.5 ORDER SYNOPSIS Patient: Cathy Cam ([id number]) Best contact number: [phone] Insurance: Payor: [facility] MEDICAID / Plan: [facility] MEDICAID / Product Type: Medicaid / Scheduling Team: Please call for adult patients: Rosamaria Gambino ([phone]) Marva Barnes ([phone]) Basim Cherry ([phone]) Savanna Lockhart([phone]) Joann Bui([phone]) Please call for pediatric patients: Savanna Lockhart ([phone]) Rosamaria Gambino ([phone]) Marva Barnes ([phone]) Basim Cherry ([phone]),Joann Bui([phone]) 09/07/2023 -- Admission Type EMU Adult Number of Days requested 4 Location [facility] Admit Priority Routine 09/07/2023 PURPOSE Patient Being [...] VNS off/on office visits. documented in this encounterCommunity Regional Medical Center06-14-2024 Telephone encounter Note * Telephone Encounter - Km Barrera - 09/07/2023 12:59 PM EDT OSH imaging/records received: September 07, 2023 -OFFICE NOTES -CT BRAIN -CARE EVERYWHERE ([facility]) -CARE EVERYWHERE ([facility]) Km Barrera September 07, 2023 1:00 PM [facility] Miscellaneous Notes* Telephone Encounter - Km Barrera - 09/07/2023 12:59 PM EDT OSH imaging/records received: September 07, 2023 -OFFICE NOTES -CT BRAIN -CARE EVERYWHERE ([facility]) -CARE EVERYWHERE ([facility]) Km Barrera September 07, 2023 1:00 PM * Telephone Encounter - Km Barrera - 09/07/2023 12:48 PM EDT [facility] Ep[facility]psy [facility] Initial Intake Interview September 07, 2023 12:49 PM Caller: Cathy Relationship to pt: Self Patient name: Cathy Cam Age: [age] year old Address: [place] [address] (home) Insurance: Payor: [facility] MEDICAID / Plan: [facility] MEDICAID / Product Type: Medicaid / Referred by: Self (word of mouth) Referring to: Any Reason for Evaluation: further evaluation and treatment Previously evaluated at: [facility] [address] [place] [phone] Fax: N/A Age & date of onset [...] No CT brain Yes August 2023 [facility] fMRI brain No PET No Ictal SPECT [...] No Signed: Km Barrera documented in this encounterCommunity [facility] Center06-[facility]-2024 Telephone encounter Note * Telephone Encounter - Km Barrera - 09/07/2023 12:48 PM EDT [facility] Ep[facility] Initial Intake Interview September 07, 2023 12:49 PM Caller: Cathy Relationship to pt: Self Patient name: Cathy Cam Age: [age] year old Address: [place] [phone] (home) Insurance: Payor: [facility] / Plan: [facility] / Product Type: Medicaid / Referred by: Self (word of mouth) Referring to: Any Reason for Evaluation: further evaluation and treatment Previously evaluated at: [place] [address] [address] [place] [phone] Fax: N/A Age & date of onset [...] imaging been requested? No Signed: Km Barrera [facility] Telephone encounter Note* Telephone Encounter - Teri Llanos LPN - 09/07/2023 12:28 PM EDT PATIENT NOTIFIED OF SAME. [facility] Miscellaneous Notes* Telephone Encounter - Teri [...] 09/07/2023 10:08 AM EDT Patient transferred to [facility] for scheduling neurology consultation. Patient has not received call from epilepsy center. LM#2 on neche's VM at [phone] requesting for a demand generation manager to contact the patient. * Telephone Encounter [...] in arranging Neurology referral had to call [phone] and left a message for them to [...] 11:36 AM EDT Pt: Cathy Cam MR# [id number] CT Brain was not completed and will be read as non diagnostic. Pt Could not do exam due to extreme fear and anxiety.Did not reschedule . Please contact pt with further instructions. Naveed,[address] [place] [phone] documented in this encounterCommunity [facility] Medical Center06-14-2024 Telephone encounter Note * Telephone Encounter - Jorge Madden APRN.RUBY RAILS DEVELOPER - 09/07/2023 11:38 AM EDT Decrease dose of phenytoin from 300 mg twice daily to taking 300 mg in the am and 200 mg in the pm.New RX sent. [facility] Telephone encounter Note* Telephone Encounter - Gris Yang - 09/07/2023 10:08 AM EDT Patient transferred to [facility] for scheduling neurology consultation. Patient has not received call from epilepsy center. LM#2 on neche's VM at [phone] requesting for a demand generation manager to contact the patient. [facility] Telephone encounter Note* Telephone Encounter - Jovanni Eason LPN - 09/07/2023 9:52 AM EDT Patient returned call, she is feeling shaky and fatigued. Asking if Floranex could be affecting thelevel? Patient was waiting on a call to schedule neuro. Transferred her to get scheduled. [facility] Telephone encounter Note* Telephone Encounter - Dahlia Amezquita LPN - 09/07/2023 9:27 AM EDT Left a message for pt to call the office and ask to speak to a nurse. Dahlia Amezquita LPN [facility] Telephone encounter Note* Telephone Encounter - [...] neuro yet. Please encourage that too. Thanks. [facility] Telephone encounter Note* Telephone Encounter - Hilary Kelly - 09/04/2023 1:41 PM EDT Spoke with patient was unable to assist in arranging Neurology referral had to call [phone] and left a message for them to return call to the patient. I also provided this number to the patient and advised if she did not hear from them in 24-48 hrs to call them back and return call to our office if having issues arranging this consult. [facility] Telephone encounter Note* Telephone Encounter - Jorge Madden APRN.CNP - 09/04/2023 12:50 PM EDT Okay noted, please see when neuro office visit is, she needs to get seen with neuro to help determine next steps. Jorge Madden APRN.JOSE [facility]06-[facility] Telephone encounter Note* Telephone Encounter - [...] center and cannot complete patient specific tasks. [facility] Telephone encounter Note* Telephone Encounter - Gris Spring RT(R) - 09/03/2023 11:36 AM EDT Pt: Cathy Cam MR# [id number] CT Brain was not completed and will be read as non diagnostic. Pt Could not do exam due to extreme fear and anxiety.Did not reschedule . Please contact pt with further instructions. [address] [place] [phone] [facility] History of Present illness Narrative* Gris [...] PATIENT PRESENTS WITH AN IMPLANTABLE OR ATTACHED DIRECT SELLING COUNSELOR: No ALLERGIES: Reviewed and unchanged CONTRAST ALLERGY: [...] 2023 TIME: 1:07 PM documented in this encounterCommunity [facility] Medical Center06-06-2024 Telephone encounter Note * Telephone Encounter - Juan C Villarreal MD - 08/30/2023 5:40 PM EDT Reviewed records Looks like patient having increased frequency of seizures. Patient afraid to do MRI Order placed for already scheduled CT scan. [facility] Miscellaneous Notes* Telephone Encounter - Juan [...] Brain wwo IV contrast documented in this encounterCommunity Regional Medical Center06-06-2024 Telephone encounter Note * Telephone Encounter - Danielle Candelaria PSS - 08/30/2023 2:[address] order for pt CT appt that is scheduled for 09/03/23.. Looks like it is scheduled for Brain wwo IV contrast [facility] Telephone encounter Note* Telephone Encounter - Poonam Calixto - 08/24/2023 2:20 PM EDT Pt states she is returning a call to office but was not sure who called. Given information from Jorge Madden below. Pt voiced understanding. [facility] Work Phone: [phone] Miscellaneous Notes* Telephone Encounter - Poonam Calixto - 08/24/2023 2:20 PM EDT Pt states she is returning a call to office but was not sure who called. Given information from Jorge Madden below. Pt voiced understanding. * Telephone Encounter - Jorge Madden APRN.RUBY RAILS DEVELOPER - 08/24/2023 12:44 PM EDT Please let [...] order. Sebastien Morales RN documented in this encounterCommunity [facility] Medical Center05-31-2024 Telephone encounter Note * Telephone Encounter [...] let us know if any seizure activity. [facility] Telephone encounter Note* Telephone Encounter - [...] would place that order. Sebastien Morales RN [facility]-14-2024 Note* Addendum Note - Jorge Madden APRN.CNP - 08/07/2023 10:42 AM EDTAddended by: JORGE MADDEN on: 08/07/2023 10:42 AM Modules accepted: Orders [facility]24 Miscellaneous Notes* Addendum Note - Jorge [...] with the planfrom yesterday. documented in this encounterCommunity Regional Medical Center05-14-2024 Note* Addendum Note - Teri Llanos LPN - 08/07/2023 10:33 AM EDTAddended by: TERI LLANOS on: 08/07/2023 10:33 AM Modules accepted: Orders [facility]-14-2024 Telephone encounter Note* Telephone Encounter - Teri Llanos LPN - 08/07/2023 10:31 AM EDT PATIENT NOTIFIED OF SAME. She states she is needing a refill on the two inhalers. I attempted to pend the Advair but it is requesting an alternative. [facility] Telephone encounter Note* Telephone Encounter - Jorge Madden APRN.CNP - 08/07/2023 8:27 AM EDT Please let patient know that dilantin level was in range but slightly lower, continue with the planfrom yesterday. [facility] Telephone encounter Note* Telephone Encounter - Rene Pinzon RN - 08/06/2023 1:08 PM EDT Called Myrna back and explained Jorge Madden's information. And it appears a new script was sent aswell. [facility] Miscellaneous Notes* Telephone Encounter - Rene [...] 08/06/2023 10:46 AM EDT Myrna pharmacist from [facility] calling in for clarification on directions [...] it matches the sig. documented in this encounterCommunity Regional Medical Center05-13-2024 Telephone encounter Note * Telephone Encounter [...] to the script with the medication selected. [facility] Telephone encounter Note* Telephone Encounter - Rene Pinzon RN - 08/06/2023 10:46 AM EDT Myrna pharmacist from [facility] calling in for clarification on directions [...] she doesn't feel it matches the sig. [facility] History of Present illness Narrative* Jorge Madden APRN.JOSE - 08/06/2023 9:30 AM EDT SUBJECTIVE Cathy Cam is a 48 year [...] appointment.. Jorge Madden APRN-JOSE [place] [address] Telephone encounter Note * Telephone Encounter - [...] does not have headache anymore Protocols used: Xycpvbv-DXHRP-GC [facility]2024 Miscellaneous Notes* Telephone Encounter - Harleen [...] does not have headache anymore Protocols used: Myfhkrr-FQSJU-IT documented in this encounterCommunity Regional Medical Center05-11-2024 Telephone encounter Note * Telephone Encounter [...] have any questions, you can call Nurse practice professional back. [facility]24 Miscellaneous Notes* Telephone Encounter - Alba [...] have any questions, you can call Nurse practice professional back. documented in this encounterCommunity [facility] Medical Center04-29-2024 Telephone encounter Note * Telephone Encounter - Savanna Arteaga - 07/23/2023 3:44 PM EDT 1st attempt--left VM for dani EMG and sleep study [facility]04-29-2024 Miscellaneous Notes* Telephone Encounter - Savanna Tavarez - 07/23/2023 3:44 PM EDT 1st attempt--left VM for dani EMG and sleep study * Telephone Encounter - Keri Carbajal OCCA - 07/23/2023 9:39 AM EDT TC to patient who verbalized understanding of providers message. Patient requesting assistance in scheduling EMG appointment. Please contact patient. Thank you. MARCELL Shea * Telephone Encounter - Jorge Madden APRN.RUBY RAILS DEVELOPER - 07/23/2023 7:16 AM EDT [place]. Please call patient and let them know recent labs looked stable. No changes needed, plan to do other testing as ordered and at this time keep next scheduled appointment. Thanks. Jorge Madden APRN.CNP documented in this encounterCommunity Regional Medical Center04-29-2024 Telephone encounter Note * Telephone Encounter - Keri Carbajal OCCA - 07/23/2023 9:39 AM EDT TC to patient who verbalized understanding of providers message. Patient requesting assistance in scheduling EMG appointment. Please contact patient. Thank you. MARCELL Shea [place] [address]-29-2024 Telephone encounter Note* Telephone Encounter - Jorge Madden APRN.CNP - 07/23/2023 7:16 AM EDT Price. Please call patient and let them know recent labs looked stable. No changes needed, plan to do other testing as ordered and at this time keep next scheduled appointment. Thanks. Jorge Madden APRN.CNP [facility] Instructions* Patient Instructions* Jorge Madden APRN.CNP - 07/20/2023 10:07 AM EDT Write down how many days you have bleeding for, how much bleeding (I.e. how many pads or tampons you use, how many hours they last for), and if you have any clots/what size they are. documented in this encounterCommunity Regional Medical Center04-26-2024 History of Present illness Narrative* Jorge [...] periods. Not sure specifics thought. 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 Her medications were reviewed [...] medications.. Jorge Madden APRN-JOSE documented in this encounterCommunity Regional Medical Center2024 Miscellaneous Notes* Telephone Encounter - Michelle [...] you. Michelle Alvarez LPN. documented in this encounterCommunity Regional Medical Center03-11-2024 History of Present illness Narrative* Candis [...] PATIENT PRESENTS WITH AN IMPLANTABLE OR ATTACHED DIRECT SELLING COUNSELOR: No RADIOLOGY DEPARTMENT: Ultrasound PERIPHERAL IV DATA: Not applicable SIGNED BY: Candis Ortega RDMS RVT June 04, 2023 9:22 AM documented in this encounterCommunity Regional Medical Center02-12-2024 Miscellaneous Notes* Telephone Encounter - Jorge Madden APRN.CNP - 05/07/2023 4:27 PM EST Labs show the alkaline phosphate elevation is secondary to the liver. I have ordered an RUQ ultrasound, please call to help get this scheduled. Thanks documented in this encounterCommunity Regional Medical Center02-09-2024 Miscellaneous Notes* Telephone Encounter - Jennifer [...] she can get something for pain? [facility] Pt also asking for lab results from 04/20/23. Katia Maldonado LPN documented in this encounterCommunity Regional Medical Center01-26-2024 History of Present illness Narrative* Barbara [...] PATIENT PRESENTS WITH AN IMPLANTABLE OR ATTACHED DIRECT SELLING COUNSELOR: No RADIOLOGY DEPARTMENT: General X-ray: Exam(s) Completed: Upper Extremity X- Ray(s): Shoulder, AP / TRUE AP / AXILLARY left PERIPHERAL IV DATA: Not applicable SIGNED BY: RT Shannon(R) April 20, 2023 10:54 AM documented in this encounterCommunity Regional Medical Center10-27-2023 History of Present illness Narrative* Jorge Madden APRN.RUBY RAILS DEVELOPER - 01/19/2023 9:23 AM EDT SUBJECTIVE Cathy [...] mouth once daily. Take in the am, [id number] mg dose in the pm levothyroxine (SYNTHROID) [...] medications.. Jorge Madden APRN-JOSE documented in this encounterCommunity Regional Medical Center10-25-2023 Miscellaneous Notes* Telephone Encounter - Hilary Somers RN - 01/17/2023 11:04 AM EDT Medication refill requested by [facility]. Requested Prescriptions Pending Prescriptions Disp Refills [...] Hilary Somers RN documented in this encounterCleveland [phone] Miscellaneous Notes* Telephone Encounter - Dahlia Amezquita [...] recommendation. Laura Valderrama RN documented in this encounterCommunity Regional Medical Center10-02-2023 History of Present illness Narrative* Jorge Madden APRN.RUBY RAILS DEVELOPER - 12/25/2022 8:54 AM EDT SUBJECTIVE Cathy [...] of continued cough. [facility]. Issues with URI. Seen with [...] mouth once daily. Take in the am, [id number] mg dose in the pm phenytoin ER [...] appointment.. Jorge Madden APRN-JOSE documented in this encounterCommunity Regional Medical Center09-21-2023 Miscellaneous Notes* Telephone Encounter - Katia Maldonado LPN - 12/14/2022 9:38 AM EDT Atiya from [facility] calling, she received a refill req for phenytoin 200mg, they are unable toget 200mg & is asking if it is ok to fill with 100mg instead? If so, please send to [facility] to dispense 60 tabs. Katia Maldonado LPN documented in this encounterCommunity Regional Medical Center09-12-2023 Miscellaneous Notes* Telephone Encounter - Joslyn [...] have any questions, you can call Nurse practice professional back. documented in this encounterCommunity Regional Medical Center09-11-2023 History of Present illness Narrative* Barbara [...] 04, 2022 8:50 AM documented in this encounterCommunity Regional Medical Center09-11-2023 History of Present illness Narrative* Freedom Graham APRN.RUBY RAILS DEVELOPER - 12/04/2022 8:21 AM EDT Subjective HPI [...] MD - JASMINEID NAAT, ROUTINE Freedom Graham APRN.RUBY RAILS DEVELOPER documented in this encounterCommunity Regional Medical Center08-22-2023 Miscellaneous Notes* Telephone Encounter - Teri [...] Jorge Madden APRN.JOSE Report in care everywhere: [facility] Imaging Services [address] [place] [address] Ext Non Vasc Limited/Soft Tiss MR#: [id number] Acct: [id number] Name: CATHY CAM Rep #: [id number] : 1975 F 47 From: Nick phelps MD PCP: KISHAN Katz Status: REG CLI Study: Ext Non Vasc Limited/Soft Tiss Date of Exam: 0 11/01/22 Exam# [id number] Ordering Dr: Jorge Madden NP HSE SPECIALIST-C STUDY: SUPERFICIAL ULTRASOUND - LEFT AXILLA. REASON [...] left armpit a couple weeks ago at [facility]. Asking if pcp has received those results? Please advise patient. documented in this encounterCommunity Regional Medical Center08-02-2023 Miscellaneous Notes* Telephone Encounter - Atiya [...] at 180. Patient reports that her other case packer is through [facility]. Patient also [...] assistance with this need. documented in this encounterCommunity Regional Medical Center07-28-2023 History of Present illness Narrative* Jorge Madden APRN.JOSE - 10/20/2022 9:06 AM EDT Images from [...] She is following up with urology, nephrology, corncob pipe manufacturing supervisor. Saw Dr. De Leon for the pelvic kidney, nothing for them to do except monitor. Living situation is unstable right now[facility] day stay. No income. She has a case picker. Still going to AA, relapsed a few times with all of this going on. Has been on disability in the past. 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 Sunday has a corncob pipe manufacturing supervisor appointment, might need surgery for this. Maybe [...] - ICD9: 218.9, ICD10: D25.9 Working with corncob pipe manufacturing supervisor, may need hysterectomy. 3. Dysmenorrhea - ICD9: [...] ICD10: Z59.9 Cannot go back to prior half-way, living [facility], working with her case picker. Able to stay with family short term [...] which included preparing to see the patient, [id number]-[id number] patient care, completing clinical documentation, obtaining and/or [...] medications.. Jorge Madden APRN-JOSE documented in this encounterCommunity Regional Medical Center07-03-2023 Miscellaneous Notes* Telephone Encounter - MARCELL Shea - 09/25/2022 2:45 PM EDT TC to patient who is given all of providers messages below. Patient states she was aware of the fibroid and she has a follow up with her corncob pipe manufacturing supervisor 10/23. Nothing further at this time. MARECLL Shea * Telephone Encounter - Jorge Madden APRN.CNP - 09/25/2022 1:57 PM EDT Can also let her know that no seizure activity was present on the EEG. * Telephone Encounter - Carmen Curran MA - 09/25/2022 1:07 PM EDT EEG results printed from [place] and given to Jorge for review. Carmen Curran MA * Telephone Encounter - Jorge Madden APRN.CNP - 09/25/2022 10:08 AM EDT I have not seen her EEG results yet but do have her ultrasound results. The ultrasound notes a fibroid in her uterus. This may be causing some of her issues. She needs to follow up with corncob pipe manufacturing supervisor. We can discuss more at her upcoming appt. I did place lab orders that she can do before her office visit. * Telephone Encounter - Hilary Somers RN - 09/25/2022 9:35 AM EDT Pt calling and asking provider to advise on recent EEG test completed recently completed at [facility]. Pt has appt with Jorge Madden CNP on 10/20/22 and no labs ordered. Pt asking if provider wishes to order labs prior to this appt? Please advise patient. Hilary Somers RN documented in this encounterCommunity Regional Medical Center06-19-2023 Miscellaneous Notes* Telephone Encounter - Harleen [...] of Last Labs: 06/21/2022 documented in this encounterCommunity Regional Medical Center04-26-2023 Miscellaneous Notes* Telephone Encounter - Jorge Madden APRN.CNP - 07/19/2022 3:49 PM EDT New script sent * Telephone Encounter - Dahlia Amezquita LPN - 07/19/2022 3:37 PM EDT Myrna with [facility] calling regarding prescription Nicorette gum. Insurance needs to know what the max is they can have in a day. Pharmacist looked this up and pt can have 1 pc every 2 hours as needed. Please resend rx with the above information if okay. Dahlia Amezquita LPN documented in this encounterCommunity Regional Medical Center04-12-2023 Miscellaneous Notes* Telephone Encounter - Teri Llanos LPN - 07/05/2022 4:37 PM EDT Consult order and records faxed as requested. * Telephone Encounter - Jorge Madden APRN.JOSE - 07/05/2022 3:42 PM EDT Can we please send referrals for [facility] and for [facility], [facility]. documented in this encounterCommunity Regional Medical Center2023 History of Present illness Narrative* Gris [...] 2022 TIME: 2:27 PM documented in this encounterCommunity Regional Medical Center03-31-2023 Miscellaneous Notes* Telephone Encounter - Teri [...] 06/23/22. Katia Maldonado LPN documented in this encounterCommunity Regional Medical Center03-29-2023 Miscellaneous Notes* Addendum Note - Jorge Madden APRN.JOSE - 06/21/2022 2:56 PM EDTAddended by: JORGE MADDEN on: 06/21/2022 02:56 PM Modules accepted: Orders documented in this encounterCommunity Regional Medical Center03-29-2023 History of Present illness Narrative* Jorge [...] independence. Still some abdominal discomfort. Referred to [facility] general surgery, has not been seen yet. [...] Other Providers: Dr. 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 Are periods regular? Yes Any concerns about her periods? No Current method of control: None, sexually active, x1 partner in the last several months Splitting Machine Feeder Surgery: tubal Last Pap: 2006 Family Hx [...] ABD/PEL W IVCON - CHL,GC,TRICH HSV - AILYN / TRICHOMONAS [...] pain. Jorge Madden APRN-JOSE documented in this encounterCommunity Regional Medical Center03-10-2023 Miscellaneous Notes* Telephone Encounter - Jorge [...] pt. Dahlia Amezquita LPN documented in this encounterCommunity Regional Medical Center03-07-2023 Miscellaneous Notes* Telephone Encounter - Teri [...] would recommend we increase. documented in this encounterCommunity Regional Medical Center03-07-2023 Miscellaneous Notes* Telephone Encounter - Pablito Augustin LPN - 05/30/2022 1:29 PM EST Pt calls office requesting orders for mammogram and EEG to be faxed to [facility]. Orders faxed. Pt also requesting referrals for Neurology and Gen Surg to be faxed to [facility] as well, she did not have a specific provider in mind so consults faxed to Dr. Will and Dr. Belinda Valverde. Pablito Augustin LPN documented in this encounterCommunity Regional Medical Center03-01-2023 History of Present illness Narrative* Jorge Madden APRN.RUBY RAILS DEVELOPER - 05/24/2022 2:23 PM EST SUBJECTIVE Cathy [...] was hospitalized for mental health issues with [facility]. Doing well since then. She does smoke about a half pack per day. Sober 6 months. Issues with abdominal pain, bloating. No nausea or vomiting. No constipation or diarrhea. No blood in stool or on stool. No black or tarry stool. [facility] diagnosed her with colitis. Her medications were [...] exam. . SANA Katz documented in this encounterCommunity Regional Medical Center02-15-2023 Miscellaneous Notes* Telephone Encounter - Jennifer [...] COVID and influenza negative. documented in this encounterCommunity Regional Medical Center02-14-2023 History of Present illness Narrative* Freedom Graham APRN.RUBY RAILS DEVELOPER - 05/09/2022 4:04 PM EST Subjective HPI [...] - COVID WITH FLUA+B, ROUTINE Freedom Graham APRN.RUBY [employer] [facility] of Past illness Narrative* Problem Noted Date Resolved Date Severe major depression, single episode 01/19/20 22 05/24/2022 Personal history of pre-term labor 07/25/2006 05/24/2022 Supervision of other high-risk (V23.89) 07/25/2006 05/24/2022 Unspecified high-risk 07/19/2006 07/25/2006 documented as of this encounter (statuses as of 05/24/2022) [facility] illness Narrative* Problem Noted Date Resolved Date Severe major depression, single episode 01/19/20 22 05/24/2022 Personal history of pre-term labor 07/25/2006 05/24/2022 Supervision of other high-risk (V23.89) 07/25/2006 05/24/2022 Unspecified high-risk 07/19/2006 07/25/2006 documented as of this encounter (statuses as of 05/30/2022) [facility] illness Narrative* Problem Noted Date Resolved Date Severe major depression, single episode 01/19/20 22 05/24/2022 Personal history of pre-term labor 07/25/2006 05/24/2022 Supervision of other high-risk (V23.89) 07/25/2006 05/24/2022 Unspecified high-risk 07/19/2006 07/25/2006 documented as of this encounter (statuses as of 05/30/2022) [facility] Narrative* Problem Noted Date Resolved Date Severe major depression, single episode 01/19/20 22 05/24/2022 Personal history of pre-term labor 07/25/2006 05/24/2022 Supervision of other high-risk (V23.89) 07/25/2006 05/24/2022 Unspecified high-risk 07/19/2006 07/25/2006 documented as of this encounter (statuses as of 06/02/2022) [facility] illness Narrative* Problem Noted Date Resolved Date Severe major depression, single episode 01/19/2005/24/2022 Personal history of pre-term labor 07/25/2006 05/24/2022 Supervision of other high-risk (V23.89) 07/25/2006 05/24/2022 Unspecified high-risk 07/19/2006 07/25/2006 documented as of this encounter (statuses as of 06/21/2022) [address]26-2022 History of Past illness Narrative* Problem Noted Date Resolved Date Severe major depression, single episode 01/19/20 22 05/24/2022 Personal history of pre-term labor 07/25/2006 05/24/2022 Supervision of other high-risk (V23.89) 07/25/2006 05/24/2022 Unspecified high-risk 07/19/2006 07/25/2006 documented as of this encounter (statuses as of 06/23/2022) [facility] Narrative* Problem Noted Date Resolved Date Severe major depression, single episode 01/19/2005/24/2022 Personal history of pre-term labor 07/25/2006 05/24/2022 Supervision of other high-risk (V23.89) 07/25/2006 05/24/2022 Unspecified high-risk 07/19/2006 07/25/2006 documented as of this encounter (statuses as of 07/06/2022) [facility] Narrative* Problem Noted Date Resolved Date Severe major depression, single episode 01/19/2005/24/2022 Personal history of pre-term labor 07/25/2006 05/24/2022 Supervision of other high-risk (V23.89) 07/25/2006 05/24/2022 Unspecified high-risk 07/19/2006 07/25/2006 documented as of this encounter (statuses as of 07/10/2022) [address]26-2022 History of Past illness Narrative* Problem Noted Date Resolved Date Severe major depression, single episode 01/19/2005/24/2022 Personal history of pre-term labor 07/25/2006 05/24/2022 Supervision of other high-risk (V23.89) 07/25/2006 05/24/2022 Unspecified high-risk 07/19/2006 07/25/2006 documented as of this encounter (statuses as of 07/20/2022) [address]26-2022 History of Past illness Narrative* Problem Noted Date Resolved Date Severe major depression, single episode 01/19/2005/24/2022 Personal history of pre-term labor 07/25/2006 05/24/2022 Supervision of other high-risk (V23.89) 07/25/2006 05/24/2022 Unspecified high-risk 07/19/2006 07/25/2006 documented as of this encounter (statuses as of 07/21/2022) [address]26-2022 History of Past illness Narrative* Problem Noted Date Resolved Date Severe major depression, single episode 01/19/2005/24/2022 Personal history of pre-term labor 07/25/2006 05/24/2022 Supervision of other high-risk (V23.89) 07/25/2006 05/24/2022 Unspecified high-risk 07/19/2006 07/25/2006 documented as of this encounter (statuses as of 09/12/2022) [address]26-2022 History of Past illness Narrative* Problem Noted Date Resolved Date Severe major depression, single episode 01/19/2005/24/2022 Personal history of pre-term labor 07/25/2006 05/24/2022 Supervision of other high-risk (V23.89) 07/25/2006 05/24/2022 Unspecified high-risk 07/19/2006 07/25/2006 documented as of this encounter (statuses as of 09/25/2022) [address]26-2022 History of Past illness Narrative* Problem Noted Date Diagnosed Date Resolved Date Severe major depression, single episode 01/18/2022 05/24/2022 Personal history of pre-term labor 07/25/2006 05/24/2022 Supervision of other high-ri sk (V23.89) 07/25/2006 05/24/2022 Unspecified high-risk 07/19/2006 07/25/2006 documented as of this encounter (statuses as of 10/20/2022) [address]26-2022 History of Past illness Narrative* Problem Noted Date Diagnosed Date Resolved Date Severe major depression, single episode 01/18/2022 05/24/2022 Personal history of pre-term labor 07/25/2006 05/24/2022 Supervision of other high-ri sk (V23.89) 07/25/2006 05/24/2022 Unspecified high-risk 07/19/2006 07/25/2006 documented as of this encounter (statuses as of 10/30/2022) [address]26-2022 History of Past illness Narrative* Problem Noted Date Diagnosed Date Resolved Date Severe major depression, single episode 01/18/2022 05/24/2022 Personal history of pre-term labor 07/25/2006 05/24/2022 Supervision of other high-ri sk (V23.89) 07/25/2006 05/24/2022 Unspecified high-risk 07/19/2006 07/25/2006 documented as of this encounter (statuses as of 11/15/2022) [address]26-2022 History of Past illness Narrative* Problem Noted Date Diagnosed Date Resolved Date Severe major depression, single episode 01/18/2022 05/24/2022 Personal history of pre-term labor 07/25/2006 05/24/2022 Supervision of other high-ri sk (V23.89) 07/25/2006 05/24/2022 Unspecified high-risk 07/19/2006 07/25/2006 documented as of this encounter (statuses as of 12/04/2022) [address]26-2022 History of Past illness Narrative* Problem Noted Date Diagnosed Date Resolved Date Severe major depression, single episode 01/18/2022 05/24/2022 Personal history of pre-term labor 07/25/2006 05/24/2022 Supervision of other high-ri sk (V23.89) 07/25/2006 05/24/2022 Unspecified high-risk 07/19/2006 07/25/2006 documented as of this encounter (statuses as of 12/05/2022) [address]26-2022 History of Past illness Narrative* Problem Noted Date Diagnosed Date Resolved Date Severe major depression, single episode 01/18/2022 05/24/2022 Personal history of pre-term labor 07/25/2006 05/24/2022 Supervision of other high-ri sk (V23.89) 07/25/2006 05/24/2022 Unspecified high-risk 07/19/2006 07/25/2006 documented as of this encounter (statuses as of 12/15/2022) [facility] Narrative* Problem Noted Date Diagnosed Date Resolved Date Severe major depression, single episode 01/18/2022 05/24/2022 Personal history of pre-term labor 07/25/2006 05/24/2022 Supervision of other high-ri sk (V23.89) 07/25/2006 05/24/2022 Unspecified high-risk 07/19/2006 07/25/2006 documented as of this encounter (statuses as of 12/26/2022) [address]26-2022 History of Past illness Narrative* Problem Noted Date Diagnosed Date Resolved Date Severe major depression, single episode 01/18/2022 05/24/2022 Personal history of pre-term labor 07/25/2006 05/24/2022 Supervision of other high-ri sk (V23.89) 07/25/2006 05/24/2022 Unspecified high-risk 07/19/2006 07/25/2006 documented as of this encounter (statuses as of 01/04/2023) [address]26-2022 History of Past illness Narrative* Problem Noted Date Diagnosed Date Resolved Date Severe major depression, single episode 01/18/2022 05/24/2022 Personal history of pre-term labor 07/25/2006 05/24/2022 Supervision of other high-ri sk (V23.89) 07/25/2006 05/24/2022 Unspecified high-risk 07/19/2006 07/25/2006 documented as of this encounter (statuses as of 01/17/2023) [address]26-2022 History of Past illness Narrative* Problem Noted Date Diagnosed Date Resolved Date Severe major depression, single episode 01/18/2022 05/24/2022 Personal history of pre-term labor 07/25/2006 05/24/2022 Supervision of other high-ri sk (V23.89) 07/25/2006 05/24/2022 Unspecified high-risk 07/19/2006 07/25/2006 documented as of this encounter (statuses as of 01/19/2023) [address]26-2022 History of Past illness Narrative* Problem Noted Date Diagnosed Date Resolved Date Severe major depression, single episode 01/18/2022 05/24/2022 Personal history of pre-term labor 07/25/2006 05/24/2022 Supervision of other high-ri sk (V23.89) 07/25/2006 05/24/2022 Unspecified high-risk 07/19/2006 07/25/2006 documented as of this encounter (statuses as of 01/28/2023) [address]26-2022 History of Past illness Narrative* Problem Noted Date Diagnosed Date Resolved Date Severe major depression, single episode 01/18/2022 05/24/2022 Personal history of pre-term labor 07/25/2006 05/24/2022 Supervision of other high-ri sk (V23.89) 07/25/2006 05/24/2022 Unspecified high-risk 07/19/2006 07/25/2006 documented as of this encounter (statuses as of 01/28/2023) [address]26-2022 History of Past illness Narrative* Problem Noted Date Diagnosed Date Resolved Date Severe major depression, single episode 01/18/2022 05/24/2022 Personal history of pre-term labor 07/25/2006 05/24/2022 Supervision of other high-ri sk (V23.89) 07/25/2006 05/24/2022 Unspecified high-risk 07/19/2006 07/25/2006 documented as of this encounter (statuses as of 05/04/2023) [address]26-2022 History of Past illness Narrative* Problem Noted Date Diagnosed Date Resolved Date Severe major depression, single episode 01/18/2022 05/24/2022 Personal history of pre-term labor 07/25/2006 05/24/2022 Supervision of other high-ri sk (V23.89) 07/25/2006 05/24/2022 Unspecified high-risk 07/19/2006 07/25/2006 documented as of this encounter (statuses as of 05/09/2023) [place] [address]-26-2022 History of Past illness Narrative* Problem Noted Date Diagnosed Date Resolved Date Severe major depression, single episode 01/18/2022 05/24/2022 Personal history of pre-term labor 07/25/2006 05/24/2022 Supervision of other high-ri sk (V23.89) 07/25/2006 05/24/2022 Unspecified high-risk 07/19/2006 07/25/2006 documented as of this encounter (statuses as of 06/05/2023) [facility] Narrative* Problem Noted Date Diagnosed Date Resolved Date Severe major depression, single episode 01/18/2022 05/24/2022 Personal history of pre-term labor 07/25/2006 05/24/2022 Supervision of other high-ri sk (V23.89) 07/25/2006 05/24/2022 Unspecified high-risk 07/19/2006 07/25/2006 documented as of this encounter (statuses as of 07/06/2023) [facility] Chief complaint suicidal History of present illness 46-year-old female describes a longstanding history of recurrent depression currently in the emergency department voicing suicidal ideation if she were to be released from a hospital setting. Patient states that she was recently discharged from a psychiatric unit in [place] and I need to go back to [...] ADAIR IGLESIAS MD on 10/17/2021 11:09 [id number] of Past illness Narrative* Problem Noted Date Resolved Date Unspecified high-risk 07/19/2006 07/25/2006 documented as of this encounter (statuses as of 05/10/2022) [facility] Narrative* Problem Noted Date Resolved Date Unspecified high-risk 07/19/2006 07/25/2006 documented as of this encounter (statuses as of 05/10/2022) [facility] No data available for this section [facility] Evaluation noteNo assessment information available [facility] Work Phone: Evaluation note* Diagnosis Sinobronchitis- Primary Unspecified sinusitis (chronic) documented in this encounter [facility] note* Diagnosis Recurrent major depressive disorder, in [...] drug monitoring [facility] Diagnosis Seizure disorder (HCC)- Primary Unspecified epilepsy without mention of intractable epilepsy [facility] Diagnosis Wellness examination- Primary Colitis Other [...] therapeutic drug monitoring documented in this encounter [facility] note* Diagnosis Uterine leiomyoma, unspecified location- Primary 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 documented in this encounter [facility] note* Diagnosis Dysuria- Primary documented in this encounter [facility] note* Diagnosis Tobacco use disorder documented in this encounter [facility] note* Diagnosis Seizure disorder (HCC) Unspecified epilepsy without mention of intractable epilepsy documented in this encounter [facility] note* Diagnosis Onset Date Resolution Status Abnormal uterine bleeding ac [employer] Anxiety acute Depression acute Hyperlipidemia acute Hypothyroidism acute Kidney disease acute Pelvic kidney acute Seizures acute [facility] Work Phone: Evaluation note* Diagnosis Seizure disorder (HCC) Unspecified epilepsy without mention of intractable epilepsy documented in this encounter [facility] note* Diagnosis Encounter for therapeutic drug monitoring- Primary documented in this encounter [facility] note* Diagnosis Pelvic kidney- Primary Other specified [...] of health (SDoH) documented in this encounter [facility] note* Diagnosis Onset Date Resolution Status Anxiety acute Depression acute Hyperlipidemia acute Hypothyroidism acute Kidney disease acute Pelvic kidney acute Seizures acute Abnormal uterine bleeding re solved Abnormal uterine bleeding due to adenomyosis acute Pelvic kidney acute [facility] Work Phone: Evaluation note* Diagnosis Onset Date Resolution Status Anxiety acute Depression acute Hyperlipidemia acute Hypothyroidism acute Kidney disease acute Pelvic kidney acute Seizures acute Abnormal uterine bleeding re solved Abnormal uterine bleeding due to adenomyosis acute Pelvic kidney acute Abnormal uterine bleeding due to adenomyosis acute Encounter for IUD insertion noneactive [facility] Work Phone: Evaluation note* Diagnosis Subacute cough- Primary Cough [facility] Diagnosis Seizure disorder (HCC)- Primary Unspecified epilepsy without mention of intractable epilepsy [facility] Diagnosis Chronic obstructive pulmonary disease with acute exacerbation (HCC)- Primary Obstructive chronic bronchitis with exacerbation Subacute cough Cough Tobacco use disorder [facility] Diagnosis Chronic obstructive pulmonary disease with acute exacerbation (HCC)- Primary Obstructive chronic bronchitis with exacerbation [facility] Diagnosis Seizure disorder (HCC) Unspecified epilepsy without mention of intractable epilepsy [facility] Diagnosis Seizure disorder (HCC)- Primary Unspecified epilepsy without mention of intractable epilepsy Chronic obstructive pulmonary disease, unspecified COPD type (HCC) Hypothyroidism, unspecified type Vitamin D deficiency Unspecified vitamin D deficiency IFG (impaired fasting glucose) Impaired fasting glucose Tobacco use disorder Encounter for immunization Need for other specified prophylactic vaccination against single bacterial disease Encounter for therapeutic drug monitoring documented in this encounter [facility] note* Diagnosis Colitis Other and unspecified noninfectious gastroenteritis and colitis Abdominal pain, suprapubic Abdominal pain, other specified site Lower abdominal pain Abdominal pain, other specified site [facility]* Diagnosis Alkaline phosphatase elevation- Primary Other nonspecific abnormal serum enzyme levels [facility]* Diagnosis Alkaline phosphatase elevation Other nonspecific abnormal serum enzyme levels [facility]* Diagnosis Seizure disorder (HCC)- Primary Unspecified [...] therapeutic drug monitoring [facility]* Diagnosis Seizure disorder (HCC)- Primary Unspecified epilepsy without mention of intractable epilepsy Situational anxiety Other anxiety states [facility] Diagnosis Situational anxiety Other anxiety states [facility] Diagnosis Subacute cough Cough Chronic obstructive pulmonary disease with acute exacerbation (HCC) Obstructive chronic bronchitis with exacerbation [facility] Diagnosis Encounter for therapeutic drug monitoring- Primary Seizure disorder (HCC) Unspecified epilepsy without mention of intractable epilepsy [facility] Diagnosis Seizure disorder (HCC) Unspecified epilepsy without mention of intractable epilepsy [facility] Diagnosis Seizure disorder (HCC)- Primary Unspecified epilepsy without mention of intractable epilepsy [facility] Diagnosis Seizure disorder (HCC) Unspecified epilepsy without mention of intractable epilepsy [facility] Diagnosis Seizure disorder (HCC) Unspecified epilepsy without mention of intractable epilepsy [facility] Diagnosis Seizure disorder (HCC) Unspecified epilepsy without mention of intractable epilepsy [facility] Diagnosis Seizure disorder (HCC)- Primary Unspecified epilepsy without mention of intractable epilepsy [facility] Diagnosis Seizure disorder (HCC)- Primary Unspecified [...] drug monitoring [facility]* Diagnosis Screening mammogram for breast cancer- Primary [facility]* Diagnosis Carpal tunnel syndrome, left upper limb- Primary Left arm pain Pain in limb Paresthesia of skin Disturbance of skin sensation [facility]* Diagnosis Seizure disorder (HCC)- Primary Unspecified [...] single bacterial disease [facility]* Diagnosis Chronic left shoulder pain Pain in joint, shoulder region documented [facility] this [facility] Diagnosis Shoulder impingement- Primary Other affections of shoulder region, not elsewhere classified Left arm pain Pain in limb Bilateral carpal tunnel syndrome Carpal tunnel syndrome Carpal tunnel syndrome of left wrist Carpal tunnel syndrome [facility]* Diagnosis Left carpal tunnel syndrome- Primary Carpal tunnel syndrome Left carpal tunnel syndrome Carpal tunnel syndrome [facility] Diagnosis Acute cough- Primary Chronic obstructive pulmonary disease with acute exacerbation (HCC) Obstructive chronic bronchitis with exacerbation Sinobronchitis Unspecified sinusitis (chronic) Seizure disorder (HCC) Unspecified epilepsy without mention of intractable epilepsy [facility] Diagnosis Seizure disorder (HCC) Unspecified epilepsy without mention of intractable epilepsy [facility] Diagnosis Chronic obstructive pulmonary disease with [...] abuse, in remission [facility]* Diagnosis Seizure disorder (HCC)- Primary Unspecified [...] Boil of groin [facility]* Diagnosis Seizure disorder (HCC) Unspecified epilepsy without mention of intractable epilepsy [facility] Diagnosis Left carpal tunnel syndrome- Primary Carpal tunnel syndrome [facility]* Diagnosis Seizure disorder (HCC)- Primary Unspecified epilepsy without mention of intractable epilepsy History of traumatic injury of head History of alcohol abuse Nondependent alcohol abuse, in remission Family history of seizures Family history of other condition Chronic intractable headache, unspecified headache type Claustrophobia Other isolated or specific phobias documented in this encounter [facility] Discharge instructions No data available for this section [facility] Reason for referral (narrative)* Outpatient Procedure (Routine) - Authorized Specialty Diagnoses / Procedures Referred By Contac t Referred To Contact [facility] Diagnoses Seizure disorder (HCC) Procedures EPIL EEG ROUTINE ELECTROENCEPHALOGRAM REC COMA/SLEEP ONLY Jorge Madden APRN.CNP [address] [place], [place] [id number] [facility] [address] [place] [address] Referral ID Status Reason Start Date Expiration Date Visits Requested Visits Authorized [id number] Authorized Auto-Generat ed Referral 05/24/2022 05/25/2023 1 1 * Consult, Test, Treat (Routine) - Pending Review Specialty Diagnoses / Procedures Referred By Contac t Referred To Contact Neurology Diagnoses Seizure disorder (HCC) Procedures CONSULT TO NEUROLOGY OFFICE/OUTPATIENT [facility] 60-74 MINUTES Jorge Madden APRN.CNP [address] [place], [place] [id number] Referral ID Status Reason Start Date Expiration Date Visits Requested Visits Authorized [id number] Pending Review PCP Requested Referral 05/24/2022 05/24/2023 1 1 * Consult, Test, Treat (Routine) - Pending Review Specialty Diagnoses / Procedures Referred By Contac t Referred To Contact General Surgery Diagnoses Colitis Procedures CONSULT TO GENERAL SURGERY OFFICE/OUTPATIENT [facility] 60-74 MINUTES Jorge Madden APRN.CNP [address] [place], [place] [id number] Referral ID Status Reason Start Date Expiration Date Visits Requested Visits Authorized [id number] Pending Review PCP Requested Referral 05/24/2022 05/24/2023 1 1 * Diagnostic Procedure Only (Routine) - Pending Review Specialty Diagnoses / Procedures Referred By Contac t Referred To Contact BR IMAGING Diagnoses Encounter for screening mammogram for breast cancer Procedures SVETA SCREENING SCREENING MAMMOGRAPHY BI 2-VIEW BREAST INC CAD Jorge Madden APRN.RUBY RAILS DEVELOPER [address] [place] [address] [facility] [address] [place] [address] Referral ID Status Reason Start Date Expiration Date Visits Requested Visits Authorized [id number] Pending Review Auto-Generat ed Referral 05/24/2022 06/23/2023 1 1 [facility] for referral (narrative)* Diagnostic Procedure Only (Routine) - Pending Review Specialty Diagnoses / Procedures Referred By Contac t Referred To Contact BR IMAGING Diagnoses Mass of left axilla Procedures US AXILLA ONLY LEFT US LMTD JOINT/OTH NONVASC XTR STRUX R-T W/IMG Jorge Madden APRN.RUBY RAILS DEVELOPER [address] [place] [address] [facility] [address] [place] [address] Referral ID Status Reason Start Date Expiration Date Visits Requested Visits Authorized [id number] Pending Review Auto-Generat ed Referral 10/20/2022 11/19/2023 1 1 [facility] for referral (narrative)* Diagnostic Procedure Only (Routine) - Authorized Specialty Diagnoses / Procedures Referred By Contac t Referred To Contact US IMAGING Diagnoses Alkaline phosphatase elevation Procedures US ABD RIGHT UPPER QUADRANT US ABDOMINAL REAL TIME W/IMAGE LIMITED Jorge Madden APRN.RUBY RAILS DEVELOPER [address] [place], [place] [id number] Us Imaging [facility] Referral ID Status Reason Start Date Expiration Date Visits Requested Visits Authorized [id number] Authorized Auto-Generat ed Referral 05/07/2023 06/05/2024 1 1 [facility] for referral (narrative)* Diagnostic Procedure Only (Routine) - Closed Specialty Diagnoses / Procedures Referred By Contac t Referred To Contact US IMAGING Diagnoses Alkaline phosphatase elevation Procedures US ABD RIGHT UPPER QUADRANT US ABDOMINAL REAL TIME W/IMAGE LIMITED Jorge Madden APRN.RUBY RAILS DEVELOPER [address] [place] [address] [place] [address] Referral ID Status Reason Start Date Expiration Date V isits Requested Visits Authorized [id number] Closed Auto-Generate d Referral 05/07/2023 06/05/2024 1 1 [facility] for referral (narrative)* Outpatient Procedure (Routine) - Pending Review Specialty Diagnoses / Procedures Referred By Contac t Referred To Contact [facility] Diagnoses Seizure disorder (HCC) Procedures EPIL EEG LEAD PLACEMENT EEG EXTENDED MONITORING 61-119 MINUTES ELECTROENCEPHALOGRAM REC COMA/SLEEP ONLY Liz Meadows APRN.CNP [address] [place] [address] [facility] [place] [address] [place] [address] Referral ID Status Reason Start Date Expiration Date Visits Requested Visits Authorized [id number] Pending Review Auto-Generat ed Referral 09/07/2023 09/06/2024 1 1 [facility] for referral (narrative)* Diagnostic Procedure Only (Routine) - New Request Specialty Diagnoses / Procedures Referred By Contac t Referred To Contact BR IMAGING Diagnoses Screening mammogram for breast cancer Procedures SVETA SCREENING W JOSE SCREENING DIGITAL BREAST TOMOSYNTHESIS BI SCREENING MAMMOGRAPHY BI 2-VIEW BREAST INC CAD Jorge Madden APRN.RUBY RAILS DEVELOPER [address] [place] [address] Br Imaging [address] [place] [address] Referral ID Status Reason Start Date Expiration Date Visits Requested Visits Authorized [id number] New Request Auto-Generat ed Referral 10/22/2023 11/20/2024 1 1 [facility] for referral (narrative)* Diagnostic Procedure Only (Routine) - Closed Specialty Diagnoses / Procedures Referred By Contac t Referred To Contact XR IMAGING Diagnoses Chronic left shoulder pain Procedures XR SHOULDER GENERAL 3V OR MORE AP/TRUE AP/OTHER LEFT RADEX SHOULDER COMPLETE MINIMUM 2 VIEWS Jorge Madden APRN.CNP [address] [place] [address] [place] [address] Referral ID Status Reason Start Date Expiration Date V isits Requested Visits Authorized [id number] Closed Auto-Generate d Referral 04/20/2023 05/19/2024 1 1 [facility]No reason for referral information availableWAdena [facility] Work Phone: [facility] for visit Narrative* Diagnostic Procedure Only (Routine) - Closed Specialty Diagnoses / Procedures Referred By Contac t Referred To Contact XR IMAGING Diagnoses Chronic left shoulder pain Procedures XR SHOULDER GENERAL 3V OR MORE AP/TRUE AP/OTHER LEFT RADEX SHOULDER COMPLETE MINIMUM 2 VIEWS Jorge Madden APRN.CNP [address] [place] [address] [place] [address] Referral ID Status Reason Start Date Expiration Date V isits Requested Visits Authorized [id number] Closed Auto-Generate d Referral 04/20/2023 05/19/2024 1 1 [facility] Summary Purpose Family History Relationship Condition Age at Onset Recorded Date/T mario alberto grandmother Malignant neoplasm of lung Unknown Malignant neoplasm of ovary Unknown Diabetes mellitus Unknown grandfather Malignant neoplasm of lung Unknown Malignant neoplasm of prostate Unknown Advance Directives Advance Directive Response Recorded Date/ Time Advance Directives No December 27, 2012 1:08pm Living Will No January 10 10:09am Power of Tool And Die Engineer No January 10, 2022 10:09am Advance Directive Response Recorded Date/ Time Advance Directives No December 27, 2012 1:08pm Living Will No January 16 10:55pm Power of Tool And Die Engineer No January 16, 2022 10:55pm Advance Directive Response Recorded Date/ Time Advance Directives No December 27, 2012 1:08pm Living Will No Shanell 5th, 2023 1 :23pm Power of Tool And Die Engineer No August 28, 2022 1:23pm Advance Directive Response Recorded Date/ Time Advance Directives No December 27, 2012 1:08pm Living Will No September 28, 2022 1 0:47am Power of Tool And Die Engineer No September 28, 2022 10:47am Advance Directive [...] disease with acute exacerbation (HCC) Jennifer Agarwal APRN.ROSE GRADER [address] [place] [address] Referral ID Status Reason Start Date Expiration Date Visits Re quested Visits Authorized [id number] Closed 1 1 Specialty Diagnoses / Procedures Referred By Contac t Referred To Contact [facility] Diagnoses Left arm pain Shoulder impingement Procedures CONSULT TO PHYSICAL THERAPY PHYSICAL THERAPY EVALUATION HIGH COMPLEX 45 MINS Tino Nicholson MD [address] [place] [address] [facility] [place] [address] [place] [address] Referral ID Status Reason Start Date Expiration Date Visits Requested Visits Authorized [id number] Pending Review Auto-Generat ed Referral 01/28/2024 01/27/2025 1 1 Specialty Diagnoses / Procedures Referred By Contac t Referred To Contact CT IMAGING Diagnoses Seizure disorder (HCC) Procedures CT BRAIN WO/W IVCON CT HEAD/BRAIN W/O & W/CONTRAST MATERIAL Jorge Madden APRN.RUBY RAILS DEVELOPER [address] [place] [address] [place] [address] Referral ID Status Reason Start Date Expiration Date Visits Requested Visits Authorized [id number] Pending Review Auto-Generat ed Referral 08/06/2023 09/04/2024 1 1 Specialty Diagnoses / Procedures Referred By Contac t Referred To Contact Neurology Diagnoses Seizure disorder (HCC) Procedures CONSULT TO NEUROLOGY OFFICE/OUTPATIENT NEW HIGH MDM 60 MINUTES Jorge Madden APRN.RUBY RAILS DEVELOPER [address] [place] [address] Referral ID Status Reason Start Date Expiration Date Visits Requested Visits Authorized [id number] Authorized PCP Requested Referral 07/20/2023 07/19/2024 1 1 Specialty Diagnoses / Procedures Referred By Contac t Referred To Contact [facility] Diagnoses Left arm pain Procedures EMG(NEURO/NI) NERVE CONDUCTION STUDIES 9-10 STUDIES Jorge Madden APRN.RUBY RAILS DEVELOPER [address] [place] [address] Neu[facility] [place] [address] [place] [address] Referral ID Status Reason Start Date Expiration Date Visits Requested Visits Authorized [id number] Pending Review Auto-Generat ed Referral 07/20/2023 07/19/2024 1 1 Specialty Diagnoses / Procedures Referred By Contac t Referred To Contact Diagnoses Subacute cough Chronic obstructive pulmonary disease with acute exacerbation (HCC) Jorge Madden APRN.RUBY RAILS DEVELOPER [address] [place] [address] Referral ID Status Reason Start Date Expiration Date Visits Re quested Visits Authorized [id number] Closed 1 1 Specialty Diagnoses / Procedures Referred By Contac t Referred To Contact Gynecology Diagnoses Uterine leiomyoma, unspecified location Procedures CONSULT TO GYNECOLOGY OFFICE/OUTPATIENT [facility] 60-74 MINUTES Jorge Madden APRN.RUBY RAILS DEVELOPER [address] [place] [address] Referral ID Status Reason Start Date Expiration Date Visits Requested Visits Authorized [id number] Authorized PCP Requested Referral Auto-Generate d Referral 07/05/2022 07/05/2023 1 1 Specialty Diagnoses / Procedures Referred By Contac t Referred To Contact Nephrology Diagnoses Pelvic kidney Procedures CONSULT TO NEPHROLOGY OFFICE/OUTPATIENT [facility] MDM 60-74 MINUTES Jorge Madden APRN.RUBY RAILS DEVELOPER [address] [place] [address] Referral ID Status Reason Start Date Expiration Date Visits Requested Visits Authorized [id number] Authorized PCP Requested Referral 07/05/2022 07/05/2023 1 1 Specialty Diagnoses / Procedures Referred By Contac t Referred To Contact CT IMAGING Diagnoses Colitis Abdominal pain, suprapubic Lower abdominal pain Procedures CT ABD/PEL W IVCON CT ABD & PELVIS W/CONTRAST Jorge Madden APRN.RUBY RAILS DEVELOPER [address] [place] [address] Ct Imaging Referral ID Status Reason Start Date Expiration Date Visits Requested Visits Authorized [id number] Authorized Auto-Generat ed Referral 06/21/2022 07/21/2023 1 1 Health Concerns Infection Onset Date Last Indicated Resolved Time COVID-19 Rule-Out 12/04/2022 12/04/2022 Additional Source Comments INFORMATION SOURCE (unrecogn ized section and content) DATE CREATED AUTHOR 07/19/2021 [facility] DATE CREATED AUTHOR AUTHOR'S ORGANIZ ATION 10/12/2021 [facility] DATE CREATED AUTHOR AUTHOR'S ORGANIZ ATION 10/27/2021 [facility] DATE CREATED AUTHOR AUTHOR'S ORGANIZ ATION 10/28/2021 [facility] ([place]) DATE CREATED AUTHOR AUTHOR'S ORGANIZ ATION 01/26/2022 [facility] DATE CREATED AUTHOR AUTHOR'S ORGANIZ ATION 09/23/2024 [facility] DATE CREATED AUTHOR AUTHOR'S ORGANIZ ATION 10/01/2024 [facility] Reason for Visit (unrecogniz ed section and content) Reason Comments Radiology CT Specialty Diagnoses / Procedures Referred By Hosea batres Referred To Contact Radiology / RADIO CT SCAN [facility] Diagnoses CT BRAIN WO/W IVCON Seizure disorder (HCC) [G40.909] Procedures CT WWO MELA B [address] Jorge Madden APRN.RUBY RAILS DEVELOPER [address] [place] [address] [facility] [address] [place] [address] Referral ID Status Reason Start Date Expiration Date V isits Requested Visits Authorized [id number] Authorized 08/27/2023 10/26/2023 1 1 Reason Comments Other Reason Comments Fever Pt reported chest co ngestion, cough x4 days. Reason Comments Results Reason Comments Establish Care Reason Comments referrals/orders to [facility] Reason Comments Results Nurse Triage Call Reason [...] CT ABD & PELVIS W/CONTRAST Jorge Madden CITY COMPTROLLER.RUBY RAILS DEVELOPER [address] [place] [id number] Imaging [facility] Referral ID Status Reason Start Date Expiration Date V isits Requested Visits Authorized [id number] Closed Auto-Generate d Referral 06/21/2022 07/21/2023 1 1 Reason Comments Pain Results Labs Reason Comments Results Reason Comments Radiology US Specialty Diagnoses / Procedures Referred By Hosea batres Referred To Contact US IMAGING Diagnoses Alkaline phosphatase elevation Procedures US ABD RIGHT UPPER QUADRANT US ABDOMINAL REAL TIME W/IMAGE LIMITED Jorge Madden CITY COMPTROLLER.RUBY RAILS DEVELOPER [address] [place] [address] Us Imaging [facility] Referral ID Status Reason Start Date Expiration Date V isits Requested Visits Authorized [id number] Closed Auto-Generate d Referral 05/07/2023 06/05/2024 1 [...] HEAD/BRAIN W/O & W/CONTRAST MATERIAL Jorge Madden APRN.RUBY RAILS DEVELOPER [address] [place] [address] [place] [address] Referral ID Status Reason Start Date Expiration Date Visits Requested Visits Authorized [id number] Authorized Auto-Generat ed Referral Clearance Not Met [...] NERVE CONDUCTION STUDIES 9-10 STUDIES Jorge Madden APRN.RUBY RAILS DEVELOPER [address] [place] [address] [facility] [place] [address] [place] [address] Referral ID Status Reason Start Date Expiration Date V isits Requested Visits Authorized [id number] Closed Auto-Generate d Referral 03/26/2023 03/25/2024 1 1 Reason Comments EEG Results Reason Onset Date Comments Refill Request 01/11/2024 Reason Comments New Pain Specialty Diagnoses / Procedures Referred By Contac t Referred To Contact Orthopedics Diagnoses Left arm pain Bilateral carpal tunnel syndrome Procedures CONSULT TO ORTHOPAEDICS OFFICE/OUTPATIENT NEW HIGH MDM 60 MINUTES Jorge Madden APRN.RUBY RAILS DEVELOPER [address] [place] [address] Referral ID Status Reason Start Date Expiration Date V isits Requested Visits Authorized [id number] Closed PCP Requested Referral 11/27/2023 11/26/2024 1 [...] NEW HIGH MDM 60 MINUTES Jorge Madden APRN.RUBY RAILS DEVELOPER [address] [place] [address] Phone: tel: fax: Referral ID Status Reason Start Date Expiration Date V isits Requested Visits Authorized [id number] Closed PCP Requested Referral 06/02/2024 06/02/2025 1 [...] or prosecute any alcohol or drug abuse patient.[facility] the event this information is protected by the Federal Confidentiality of Alcohol and Drug Abuse Patient Records regulations: The Federal rules restrict any use of the information to criminally investigate or prosecute any alcohol or drug abuse patient.[facility] CenterIn the event this information is protected by the Federal Confidentiality of Alcohol and Drug Abuse Patient Records regulations: The Federal rules restrict any use of the information to criminally investigate or prosecute any alcohol or drug abuse patient.[facility] CenterIn the event this information is protected by the Federal Confidentiality of Alcohol and Drug Abuse Patient Records regulations: The Federal rules restrict any use of the information to criminally investigate or prosecute any alcohol or drug abuse patient.[facility] CenterIn the event this information is protected by the Federal Confidentiality of Alcohol and Drug Abuse Patient Records regulations: The Federal rules restrict any use of the information to criminally investigate or prosecute any alcohol or drug abuse patient.[facility] CenterIn the event this information is protected by the Federal Confidentiality of Alcohol and Drug Abuse Patient Records regulations: The Federal rules restrict any use of the information to criminally investigate or prosecute any alcohol or drug abuse patient.[facility] CenterIn the event this information is protected by the Federal Confidentiality of Alcohol and Drug Abuse Patient Records regulations: The Federal rules restrict any use of the information to criminally investigate or prosecute any alcohol or drug abuse patient.[facility] CenterIn the event this information is protected by the Federal Confidentiality of Alcohol and Drug Abuse Patient Records regulations: The Federal rules restrict any use of the information to criminally investigate or prosecute any alcohol or drug abuse patient.[facility] CenterIn the event this information is protected by the Federal Confidentiality of Alcohol and Drug Abuse Patient Records regulations: The Federal rules restrict any use of the information to criminally investigate or prosecute any alcohol or drug abuse patient.[facility] CenterIn the event this information is protected by the Federal Confidentiality of Alcohol and Drug Abuse Patient Records regulations: The Federal rules restrict any use of the information to criminally investigate or prosecute any alcohol or drug abuse patient.[facility] CenterIn the event this information is protected by the Federal Confidentiality of Alcohol and Drug Abuse Patient Records regulations: The Federal rules restrict any use of the information to criminally investigate or prosecute any alcohol or drug abuse patient.[facility] CenterIn the event this information is protected by the Federal Confidentiality of Alcohol and Drug Abuse Patient Records regulations: The Federal rules restrict any use of the information to criminally investigate or prosecute any alcohol or drug abuse patient.[facility] CenterIn the event this information is protected by the Federal Confidentiality of Alcohol and Drug Abuse Patient Records regulations: The Federal rules restrict any use of the information to criminally investigate or prosecute any alcohol or drug abuse patient.[facility] CenterIn the event this information is protected by the Federal Confidentiality of Alcohol and Drug Abuse Patient Records regulations: The Federal rules restrict any use of the information to criminally investigate or prosecute any alcohol or drug abuse patient.[facility] CenterIn the event this information is protected by the Federal Confidentiality of Alcohol and Drug Abuse Patient Records regulations: The Federal rules restrict any use of the information to criminally investigate or prosecute any alcohol or drug abuse patient.[facility] CenterIn the event this information is protected by the Federal Confidentiality of Alcohol and Drug Abuse Patient Records regulations: The Federal rules restrict any use of the information to criminally investigate or prosecute any alcohol or drug abuse patient.[facility] CenterIn the event this information is protected by the Federal Confidentiality of Alcohol and Drug Abuse Patient Records regulations: The Federal rules restrict any use of the information to criminally investigate or prosecute any alcohol or drug abuse patient.[facility] CenterIn the event this information is protected by the Federal Confidentiality of Alcohol and Drug Abuse Patient Records regulations: The Federal rules restrict any use of the information to criminally investigate or prosecute any alcohol or drug abuse patient.[facility] CenterIn the event this information is protected by the Federal Confidentiality of Alcohol and Drug Abuse Patient Records regulations: The Federal rules restrict any use of the information to criminally investigate or prosecute any alcohol or drug abuse patient.[facility] CenterIn the event this information is protected by the Federal Confidentiality of Alcohol and Drug Abuse Patient Records regulations: The Federal rules restrict any use of the information to criminally investigate or prosecute any alcohol or drug abuse patient.[facility] CenterIn the event this information is protected by the Federal Confidentiality of Alcohol and Drug Abuse Patient Records regulations: The Federal rules restrict any use of the information to criminally investigate or prosecute any alcohol or drug abuse patient.[facility] CenterIn the event this information is protected by the Federal Confidentiality of Alcohol and Drug Abuse Patient Records regulations: The Federal rules restrict any use of the information to criminally investigate or prosecute any alcohol or drug abuse patient.[facility] CenterIn the event this information is protected by the Federal Confidentiality of Alcohol and Drug Abuse Patient Records regulations: The Federal rules restrict any use of the information to criminally investigate or prosecute any alcohol or drug abuse patient.[facility] CenterIn the event this information is protected by the Federal Confidentiality of Alcohol and Drug Abuse Patient Records regulations: The Federal rules restrict any use of the information to criminally investigate or prosecute any alcohol or drug abuse patient.[facility] CenterIn the event this information is protected by the Federal Confidentiality of Alcohol and Drug Abuse Patient Records regulations: The Federal rules restrict any use of the information to criminally investigate or prosecute any alcohol or drug abuse patient.[facility] CenterIn the event this information is protected by the Federal Confidentiality of Alcohol and Drug Abuse Patient Records regulations: The Federal rules restrict any use of the information to criminally investigate or prosecute any alcohol or drug abuse patient.[facility] CenterIn the event this information is protected by the Federal Confidentiality of Alcohol and Drug Abuse Patient Records regulations: The Federal rules restrict any use of the information to criminally investigate or prosecute any alcohol or drug abuse patient.[facility] CenterIn the event this information is protected by the Federal Confidentiality of Alcohol and Drug Abuse Patient Records regulations: The Federal rules restrict any use of the information to criminally investigate or prosecute any alcohol or drug abuse patient.[facility] CenterIn the event this information is protected by the Federal Confidentiality of Alcohol and Drug Abuse Patient Records regulations: The Federal rules restrict any use of the information to criminally investigate or prosecute any alcohol or drug abuse patient.[facility] CenterIn the event this information is protected by the Federal Confidentiality of Alcohol and Drug Abuse Patient Records regulations: The Federal rules restrict any use of the information to criminally investigate or prosecute any alcohol or drug abuse patient.[facility] CenterIn the event this information is protected by the Federal Confidentiality of Alcohol and Drug Abuse Patient Records regulations: The Federal rules restrict any use of the information to criminally investigate or prosecute any alcohol or drug abuse patient.[facility] CenterIn the event this information is protected by the Federal Confidentiality of Alcohol and Drug Abuse Patient Records regulations: The Federal rules restrict any use of the information to criminally investigate or prosecute any alcohol or drug abuse patient.[facility] CenterIn the event this information is protected by the Federal Confidentiality of Alcohol and Drug Abuse Patient Records regulations: The Federal rules restrict any use of the information to criminally investigate or prosecute any alcohol or drug abuse patient.[facility] CenterIn the event this information is protected by the Federal Confidentiality of Alcohol and Drug Abuse Patient Records regulations: The Federal rules restrict any use of the information to criminally investigate or prosecute any alcohol or drug abuse patient.[facility] CenterIn the event this information is protected by the Federal Confidentiality of Alcohol and Drug Abuse Patient Records regulations: The Federal rules restrict any use of the information to criminally investigate or prosecute any alcohol or drug abuse patient.[facility] CenterIn the event this information is protected by the Federal Confidentiality of Alcohol and Drug Abuse Patient Records regulations: The Federal rules restrict any use of the information to criminally investigate or prosecute any alcohol or drug abuse patient.[facility] CenterIn the event this information is protected by the Federal Confidentiality of Alcohol and Drug Abuse Patient Records regulations: The Federal rules restrict any use of the information to criminally investigate or prosecute any alcohol or drug abuse patient.[facility] CenterIn the event this information is protected by the Federal Confidentiality of Alcohol and Drug Abuse Patient Records regulations: The Federal rules restrict any use of the information to criminally investigate or prosecute any alcohol or drug abuse patient.[facility] CenterIn the event this information is protected by the Federal Confidentiality of Alcohol and Drug Abuse Patient Records regulations: The Federal rules restrict any use of the information to criminally investigate or prosecute any alcohol or drug abuse patient.[facility] CenterIn the event this information is protected by the Federal Confidentiality of Alcohol and Drug Abuse Patient Records regulations: The Federal rules restrict any use of the information to criminally investigate or prosecute any alcohol or drug abuse patient.[facility] CenterIn the event this information is protected by the Federal Confidentiality of Alcohol and Drug Abuse Patient Records regulations: The Federal rules restrict any use of the information to criminally investigate or prosecute any alcohol or drug abuse patient.[facility] CenterIn the event this information is protected by the Federal Confidentiality of Alcohol and Drug Abuse Patient Records regulations: The Federal rules restrict any use of the information to criminally investigate or prosecute any alcohol or drug abuse patient.[facility] CenterIn the event this information is protected by the Federal Confidentiality of Alcohol and Drug Abuse Patient Records regulations: The Federal rules restrict any use of the information to criminally investigate or prosecute any alcohol or drug abuse patient.[facility] CenterIn the event this information is protected by the Federal Confidentiality of Alcohol and Drug Abuse Patient Records regulations: The Federal rules restrict any use of the information to criminally investigate or prosecute any alcohol or drug abuse patient.[facility] CenterIn the event this information is protected by the Federal Confidentiality of Alcohol and Drug Abuse Patient Records regulations: The Federal rules restrict any use of the information to criminally investigate or prosecute any alcohol or drug abuse patient.[facility] CenterIn the event this information is protected by the Federal Confidentiality of Alcohol and Drug Abuse Patient Records regulations: The Federal rules restrict any use of the information to criminally investigate or prosecute any alcohol or drug abuse patient.[facility] CenterIn the event this information is protected by the Federal Confidentiality of Alcohol and Drug Abuse Patient Records regulations: The Federal rules restrict any use of the information to criminally investigate or prosecute any alcohol or drug abuse patient.[facility] CenterIn the event this information is protected by the Federal Confidentiality of Alcohol and Drug Abuse Patient Records regulations: The Federal rules restrict any use of the information to criminally investigate or prosecute any alcohol or drug abuse patient.[facility] CenterIn the event this information is protected by the Federal Confidentiality of Alcohol and Drug Abuse Patient Records regulations: The Federal rules restrict any use of the information to criminally investigate or prosecute any alcohol or drug abuse patient.[facility] CenterIn the event this information is protected by the Federal Confidentiality of Alcohol and Drug Abuse Patient Records regulations: The Federal rules restrict any use of the information to criminally investigate or prosecute any alcohol or drug abuse patient.[facility] CenterIn the event this information is protected by the Federal Confidentiality of Alcohol and Drug Abuse Patient Records regulations: The Federal rules restrict any use of the information to criminally investigate or prosecute any alcohol or drug abuse patient.[facility] CenterIn the event this information is protected by the Federal Confidentiality of Alcohol and Drug Abuse Patient Records regulations: The Federal rules restrict any use of the information to criminally investigate or prosecute any alcohol or drug abuse patient.[facility] CenterIn the event this information is protected by the Federal Confidentiality of Alcohol and Drug Abuse Patient Records regulations: The Federal rules restrict any use of the information to criminally investigate or prosecute any alcohol or drug abuse patient.[facility] CenterIn the event this information is protected by the Federal Confidentiality of Alcohol and Drug Abuse Patient Records regulations: The Federal rules restrict any use of the information to criminally investigate or prosecute any alcohol or drug abuse patient.[facility] CenterIn the event this information is protected by the Federal Confidentiality of Alcohol and Drug Abuse Patient Records regulations: The Federal rules restrict any use of the information to criminally investigate or prosecute any alcohol or drug abuse patient.[facility] CenterIn the event this information is protected by the Federal Confidentiality of Alcohol and Drug Abuse Patient Records regulations: The Federal rules restrict any use of the information to criminally investigate or prosecute any alcohol or drug abuse patient.[facility] CenterIn the event this information is protected by the Federal Confidentiality of Alcohol and Drug Abuse Patient Records regulations: The Federal rules restrict any use of the information to criminally investigate or prosecute any alcohol or drug abuse patient.[facility] CenterIn the event this information is protected by the Federal Confidentiality of Alcohol and Drug Abuse Patient Records regulations: The Federal rules restrict any use of the information to criminally investigate or prosecute any alcohol or drug abuse patient.[facility] CenterIn the event this information is protected by the Federal Confidentiality of Alcohol and Drug Abuse Patient Records regulations: The Federal rules restrict any use of the information to criminally investigate or prosecute any alcohol or drug abuse patient.[facility] CenterIn the event this information is protected by the Federal Confidentiality of Alcohol and Drug Abuse Patient Records regulations: The Federal rules restrict any use of the information to criminally investigate or prosecute any alcohol or drug abuse patient.[facility] CenterIn the event this information is protected by the Federal Confidentiality of Alcohol and Drug Abuse Patient Records regulations: The Federal rules restrict any use of the information to criminally investigate or prosecute any alcohol or drug abuse patient.[facility] CenterIn the event this information is protected by the Federal Confidentiality of Alcohol and Drug Abuse Patient Records regulations: The Federal rules restrict any use of the information to criminally investigate or prosecute any alcohol or drug abuse patient.[facility] CenterIn the event this information is protected by the Federal Confidentiality of Alcohol and Drug Abuse Patient Records regulations: The Federal rules restrict any use of the information to criminally investigate or prosecute any alcohol or drug abuse patient.[facility] CenterIn the event this information is protected by the Federal Confidentiality of Alcohol and Drug Abuse Patient Records regulations: The Federal rules restrict any use of the information to criminally investigate or prosecute any alcohol or drug abuse patient.[facility] CenterIn the event this information is protected by the Federal Confidentiality of Alcohol and Drug Abuse Patient Records regulations: The Federal rules restrict any use of the information to criminally investigate or prosecute any alcohol or drug abuse patient.[facility] CenterIn the event this information is protected by the Federal Confidentiality of Alcohol and Drug Abuse Patient Records regulations: The Federal rules restrict any use of the information to criminally investigate or prosecute any alcohol or drug abuse patient.[facility] CenterIn the event this information is protected by the Federal Confidentiality of Alcohol and Drug Abuse Patient Records regulations: The Federal rules restrict any use of the information to criminally investigate or prosecute any alcohol or drug abuse patient.[facility] CenterIn the event this information is protected by the Federal Confidentiality of Alcohol and Drug Abuse Patient Records regulations: The Federal rules restrict any use of the information to criminally investigate or prosecute any alcohol or drug abuse patient.[facility] CenterIn the event this information is protected by the Federal Confidentiality of Alcohol and Drug Abuse Patient Records regulations: The Federal rules restrict any use of the information to criminally investigate or prosecute any alcohol or drug abuse patient.[facility] CenterIn the event this information is protected by the Federal Confidentiality of Alcohol and Drug Abuse Patient Records regulations: The Federal rules restrict any use of the information to criminally investigate or prosecute any alcohol or drug abuse patient.[facility] CenterIn the event this information is protected by the Federal Confidentiality of Alcohol and Drug Abuse Patient Records regulations: The Federal rules restrict any use of the information to criminally investigate or prosecute any alcohol or drug abuse patient.[facility] CenterIn the event this information is protected by the Federal Confidentiality of Alcohol and Drug Abuse Patient Records regulations: The Federal rules restrict any use of the information to criminally investigate or prosecute any alcohol or drug abuse patient.[facility] CenterIn the event this information is protected by the Federal Confidentiality of Alcohol and Drug Abuse Patient Records regulations: The Federal rules restrict any use of the information to criminally investigate or prosecute any alcohol or drug abuse patient.[facility] CenterIn the event this information is protected by the Federal Confidentiality of Alcohol and Drug Abuse Patient Records regulations: The Federal rules restrict any use of the information to criminally investigate or prosecute any alcohol or drug abuse patient.[facility] CenterIn the event this information is protected by the Federal Confidentiality of Alcohol and Drug Abuse Patient Records regulations: The Federal rules restrict any use of the information to criminally investigate or prosecute any alcohol or drug abuse patient.[facility] CenterIn the event this information is protected by the Federal Confidentiality of Alcohol and Drug Abuse Patient Records regulations: The Federal rules restrict any use of the information to criminally investigate or prosecute any alcohol or drug abuse patient.[facility] Care Teams (unrecognized sec tion and content) Travelers' Aid Worker Relationship Specialty Start Date End Date Jorge Madden APRN.[employer] [address] [place] [address] 13235 PCP - General Internal Medicine 05/24/22 Travelers' Aid Worker Relationship Specialty Start Date End Date Jorge Madden APRN.[employer] [address] [place] [address] 78943 PCP - General Internal Medicine 05/24/22 Travelers' Aid Worker Relationship Specialty Start Date End Date Jorge Madden APRN.[employer]ELOPER [address] [place] [address] 12995 PCP - General Internal Medicine 05/24/22 Travelers' Aid Worker Relationship Specialty Start Date End Date Jorge Madden APRN.[employer]ELOPER [address] [place] [address] [phone] PCP - General Internal Medicine 05/24/22 Travelers' Aid Worker Relationship Specialty Start Date End Date Jorge Madden APRN.[employer]ELOPER [address] [place] [address] 34639 PCP - General Internal Medicine 05/24/22 Travelers' Aid Worker Relationship Specialty Start Date End Date Jorge Madden APRN.[employer]ELOPER [address] [place] [address] 95255 PCP - General Internal Medicine 05/24/22 Travelers' Aid Worker Relationship Specialty Start Date End Date Jorge Madden APRN.[employer]ELOPER [address] [place] [address] 19778 PCP - General Internal Medicine 05/24/22 Travelers' Aid Worker Relationship Specialty Start Date End Date Jorge Madden APRN.[employer]ELOPER [address] [place] [address] 81326 PCP - General Internal Medicine 05/24/22 Travelers' Aid Worker Relationship Specialty Start Date End Date Jorge Madden APRN.[employer]OPER [address] [place] [address] 56547 PCP - General Internal Medicine 05/24/22 Team Status: Active Member Role Status Dates No Primary Care Physician Family Provider Active Jorge Madden HSE SPECIALIST, HSE SPECIALIST-C Primary Care Provider Active Team Status: Inactive Member Role Status Dates Jorge Madden HSE SPECIALIST, HSE SPECIALIST-C Primary Care Provider, Referring Provider Active Dr. Poonam Brown , DO Attending Provider Activ e Team Status: Inactive Member Role Status Dates Jorge Madden HSE SPECIALIST, HSE SPECIALIST-C Primary Care Provider Active Dr. Mustapha Gonzalez , DO Emergency Provider Active [employer] Worker Relationship Specialty Start Date End Date Jorge Madden APRN.[employer]ELOPER [address] [place] [address] 16444 PCP - General Internal Medicine 05/24/22 Travelers' Aid Worker Relationship Specialty Start Date End Date Jorge Madden APRN.[employer]ELOPER [address] [place] [address] 80118 PCP - General Internal Medicine 05/24/22 Travelers' Aid Worker Relationship Specialty Start Date End Date Jorge Madden APRN.[employer]ELOPER [address] [place] [address] 85910 PCP - General Internal Medicine 05/24/22 Travelers' Aid Worker Relationship Specialty Start Date End Date Jorge Madden APRN.[employer]ELOPER [address] [place] [address] 13285 PCP - General Internal Medicine 05/24/22 Team Status: Inactive Member Role Status Dates Jorge Madden HSE SPECIALIST, HSE SPECIALIST-C Primary Care Provider, Referring Provider Active Dr. Nahomy Soriano MD Attending Provider Active Team Status: Inactive Member Role Status Dates Jorge Madden HSE SPECIALIST, HSE SPECIALIST-C Primary Care Provi anitha, Attending Provider, Referring Provider Active Team Status: Inactive Member Role Status Dates Jorge Comerr HSE SPECIALIST, HSE SPECIALIST-C Primary Care Provider Active Dr. Poonam Brown , Attending Provider, Refe rring Provider Active Team Status: Inactive Member Role Status Dates Jorge Comerr HSE SPECIALIST, HSE SPECIALIST-C Primary Care Provider Active Dr. Mustapha Gonzalez , Attending Provider, Emergency P rodarlin Active Team Status: Inactive Member Role Status Dates Jorge Comerr HSE SPECIALIST, HSE SPECIALIST-C Primary Care Provider Active Dr. Tino Brantley MD Attending Provider, Emergency Provider Active Team Status: Inactive Member Role Status Dates Jorge Comerr HSE SPECIALIST, HSE SPECIALIST-C Primary Care Provider Active Dr. Nahomy Soriano MD Attending Provider, Referr ing Provider Active [employer] Worker Relationship Specialty Start Date End Date Jorge Madden APRN.[employer]ELOPER [address] [place] [address] PCP - General Internal Medicine 05/24/22 Travelers' Aid Worker Relationship Specialty Start Date End Date Jorge Madden APRN.[employer]ELOPER [address] [place] [address] PCP - General Internal Medicine 05/24/22 Travelers' Aid Worker Relationship Specialty Start Date End Date Jorge Madden APRN.[employer] DEVELOPER [address] [place] [address] PCP - General Internal Medicine 05/24/22 Travelers' Aid Worker Relationship Specialty Start Date End Date Jorge Madden APRN.[employer]ELOPER [address] [place] [address] PCP - General Internal Medicine 05/24/22 Travelers' Aid Worker Relationship Specialty Start Date End Date Jorge Madden APRN.[employer]ELOPER [address] [place] [address] 58305 PCP - General Internal Medicine 05/24/22 Travelers' Aid Worker Relationship Specialty Start Date End Date Jorge Madden APRN.[employer]ELOPER [address] [place] [address] 04036 PCP - General Internal Medicine 05/24/22 Travelers' Aid Worker Relationship Specialty Start Date End Date Jorge Madden APRN.[employer] DEVELOPER [address] [place] [address] 46578 PCP - General Internal Medicine 05/24/22 Travelers' Aid Worker Relationship Specialty Start Date End Date Jorge Madden APRN.[employer]ELOPER [address] [place] [address] 04418 PCP - General Internal Medicine 05/24/22 Travelers' Aid Worker Relationship Specialty Start Date End Date Jorge Madden APRN.[employer] DEVELOPER [address] [place] [address] 55503 PCP - General Internal Medicine 05/24/22 Travelers' Aid Worker Relationship Specialty Start Date End Date Jorge Madden APRN.[employer] DEVELOPER [address] [place] [address] 78983 PCP - General Internal Medicine 05/24/22 Travelers' Aid Worker Relationship Specialty Start Date End Date Jorge Madden APRN.[employer] DEVELOPER [address] [place] [address] 72091 PCP - General Internal Medicine 05/24/22 Travelers' Aid Worker Relationship Specialty Start Date End Date Jorge Madden APRN.[employer] DEVELOPER [address] [place] [address] 90454 PCP - General Internal Medicine 05/24/22 Travelers' Aid Worker Relationship Specialty Start Date End Date Jorge Madden APRN.[employer] DEVELOPER [address] [place] [address] 17734 PCP - General Internal Medicine 05/24/22 Travelers' Aid Worker Relationship Specialty Start Date End Date Jorge Madden APRN.[employer] DEVELOPER [address] [place] [address] 02891 PCP - General Internal Medicine 05/24/22 Travelers' Aid Worker Relationship Specialty Start Date End Date Jorge Madden APRN.[employer] DEVELOPER [address] [place] [address] 66335 PCP - General Internal Medicine 05/24/22 Travelers' Aid Worker Relationship Specialty Start Date End Date Jorge Madden APRN.[employer] DEVELOPER [address] [place] [address] 47340 PCP - General Internal Medicine 05/24/22 Travelers' Aid Worker Relationship Specialty Start Date End Date Jorge Madden APRN.[employer] DEVELOPER [address] [place] [address] 27033 PCP - General Internal Medicine 05/24/22 Travelers' Aid Worker Relationship Specialty Start Date End Date Jorge Madden APRN.[employer] DEVELOPER [address] [place] [address] 03581 PCP - General Internal Medicine 05/24/22 Travelers' Aid Worker Relationship Specialty Start Date End Date Jorge Madden APRN.[employer] DEVELOPER [address] [place] [address] 43472 PCP - General Internal Medicine 05/24/22 Travelers' Aid Worker Relationship Specialty Start Date End Date Jorge Madden APRN.[employer] DEVELOPER [address] [place] [address] 71518 PCP - General Internal Medicine 05/24/22 Travelers' Aid Worker Relationship Specialty Start Date End Date Jorge Madden APRN.[employer] DEVELOPER [address] [place] [address], [place] [address] PCP - General Internal Medicine 05/24/22 Travelers' Aid Worker Relationship Specialty Start Date End Date Jorge Madden APRN.[employer] DEVELOPER [address] [place] [address] [phone] PCP - General Internal Medicine 05/24/22 Travelers' Aid Worker Relationship Specialty Start Date End Date Jorge Madden APRN.[employer] DEVELOPER [address] [place] [address] 02539 PCP - General Internal Medicine 05/24/22 Travelers' Aid Worker Relationship Specialty Start Date End Date Jorge Madden APRN.[employer] DEVELOPER [address] [place] [address] 98646 PCP - General Internal Medicine 05/24/22 Travelers' Aid Worker Relationship Specialty Start Date End Date Jorge Madden APRN.[employer] DEVELOPER [address] [place] [address] 13196 PCP - General Internal Medicine 05/24/22 Travelers' Aid Worker Relationship Specialty Start Date End Date Jorge Madden APRN.[employer] DEVELOPER [address] [place] [address] 28504 PCP - General Internal Medicine 05/24/22 Travelers' Aid Worker Relationship Specialty Start Date End Date Jorge Madden APRN.[employer] DEVELOPER [address] [place] [address] 38661 PCP - General Internal Medicine 05/24/22 Travelers' Aid Worker Relationship Specialty Start Date End Date Jorge Madden APRN.[employer] DEVELOPER [address] [place] [address] 77846 PCP - General Internal Medicine 05/24/22 Travelers' Aid Worker Relationship Specialty Start Date End Date Jorge Madden CITY COMPTROLLER.[employer]ELOPER [address] [place] [address] 59264 PCP - General Internal Medicine 05/24/22 Travelers' Aid Worker Relationship Specialty Start Date End Date Jorge Madden CITY COMPTROLLER.[employer] DEVELOPER [address] [place] [address] 17492 PCP - General Internal Medicine 05/24/22 Travelers' Aid Worker Relationship Specialty Start Date End Date Jorge Madden CITY COMPTROLLER.[employer] DEVELOPER [address] [place] [address] 26688 PCP - General Internal Medicine 05/24/22 Travelers' Aid Worker Relationship Specialty Start Date End Date Jorge Madden CITY COMPTROLLER.[employer] DEVELOPER [address] [place] [address] 02829 PCP - General Internal Medicine 05/24/22 Travelers' Aid Worker Relationship Specialty Start Date End Date Jorge Madden CITY COMPTROLLER.[employer] DEVELOPER [address] [place] [address] 89547 PCP - General Internal Medicine 05/24/22 Travelers' Aid Worker Relationship Specialty Start Date End Date Jorge Madden CITY COMPTROLLER.[employer] DEVELOPER [address] [place] [address] 86216 PCP - General Internal Medicine 05/24/22 Travelers' Aid Worker Relationship Specialty Start Date End Date Jorge Madden CITY COMPTROLLER.[employer] DEVELOPER [address] [place] [address] 63852 PCP - General Internal Medicine 05/24/22 Travelers' Aid Worker Relationship Specialty Start Date End Date Jorge Madden APRN.[employer] DEVELOPER [address] [place] [address] PCP - General Internal Medicine 05/24/22 Travelers' Aid Worker Relationship Specialty Start Date End Date Jorge Madden APRN.RU[employer] DEVELOPER [address] [place] [address] PCP - General Internal Medicine 05/24/22 Travelers' Aid Worker Relationship Specialty Start Date End Date Jorge Madden APRN.RU[employer] DEVELOPER [address] [place] [address] PCP - General Internal Medicine 05/24/22 Travelers' Aid Worker Relationship Specialty Start Date End Date Jorge Madden APRN.[employer] DEVELOPER [address] [place] [address] PCP - General Internal Medicine 05/24/22 Team Status: Active Member Role Status Dates Jorge Madden HSE SPECIALIST, HSE SPECIALIST-C Primary Care Provider Active Team Status: Inactive Member Role Status Dates Jorge Madden HSE SPECIALIST, HSE SPECIALIST-C Primary Care Provider Active Start: July 28, 2024 End: July 28, 2024 Jorge Madden HSE SPECIALIST, HSE SPECIALIST-C Referring Provider Active Start: July 28, 2024 End: July 28, 2024 Princess Blake HSE SPECIALIST, HSE SPECIALIST-C Attending Provider Active Start: July 28, 2024 End: July 28, 2024 Team Status: Inactive Member Role Status Dates Jorge Madden HSE SPECIALIST, HSE SPECIALIST-C Primary Care Provider Active Start: July 28, 2024 End: July 28, 2024 Princess Blake HSE SPECIALIST, HSE SPECIALIST-C Attending Provider Active Start: July 28, 2024 End: July 28, 2024 Princess Blake HSE SPECIALIST, HSE SPECIALIST-C Referring Provider Active Start: July 28, 2024 End: July 28, 2024 Team Status: Active Member Role Status Dates Jorge Madden HSE SPECIALIST, HSE SPECIALIST-C Primary Care Provider Active Start: July 29, 2024 Princess Blake HSE SPECIALIST, HSE SPECIALIST-C Attending Provider Active Start: July 29, 2024 Princess Blake HSE SPECIALIST, HSE SPECIALIST-C Referring Provider Active Start: July 29, 2024 Travelers' Aid Worker Relationship Specialty Start Date End Date Jorge Madden APRN.[employer]EL[employer] [address] [place], [place] [id number] PCP - General Internal Medicine 05/24/22 Team Status: Inactive Member Role Status Dates Jorge Madden HSE SPECIALIST, HSE SPECIALIST-C Primary Care Provider Active Start: July 29, 2024 End: July 29, 2024 Princess Blake HSE SPECIALIST, HSE SPECIALIST-C Attending Provider Active Start: July 29, 2024 End: July 29, 2024 Princess Blake HSE SPECIALIST, HSE SPECIALIST-C Referring Provider Active Start: July 29, 2024 End: July 29, 2024 Travelers' Aid Worker Relationship Specialty Start Date End Date Jorge Madden APRN.[employer]ELOPER [address] [place], [place] [id number] PCP - General Internal Medicine 05/24/22 Travelers' Aid Worker Relationship Specialty Start Date End Date Jorge Madden APRN.[employer]EL[employer] [address] [place], [place] [id number] PCP - General Internal Medicine 05/24/22 Team Status: Active Member Role/Relationship Status Dates Jorge Madden HSE SPECIALIST, HSE SPECIALIST-C Primary Care Provider Active Team Status: Inactive Member Role/Relationship Status Dates Jorge Madden HSE SPECIALIST, HSE SPECIALIST-C Primary Care Provider Active Start: July 28, 2024 End: July 28, 2024 Jorge Madden HSE SPECIALIST, HSE SPECIALIST-C Referring Provider Active Start: July 28, 2024 End: July 28, 2024 Princess Blake HSE SPECIALIST, HSE SPECIALIST-C Attending Provider Active Start: July 28, 2024 End: July 28, 2024 Team Status: Inactive Member Role/Relationship Status Dates Jorge Madden HSE SPECIALIST, HSE SPECIALIST-C Primary Care Provider Active Start: July 28, 2024 End: July 28, 2024 Princess Blake HSE SPECIALIST, HSE SPECIALIST-C Attending Provider Active Start: July 28, 2024 End: July 28, 2024 Princess Blake HSE SPECIALIST, HSE SPECIALIST-C Referring Provider Active Start: July 28, 2024 End: July 28, 2024 Team Status: Inactive Member Role/Relationship Status Dates Jorge Madden HSE SPECIALIST, HSE SPECIALIST-C Primary Care Provider Active Start: July 29, 2024 End: July 29, 2024 Princess Blake HSE SPECIALIST, HSE SPECIALIST-C Attending Provider Active Start: July 29, 2024 End: July 29, 2024 Princess Blake HSE SPECIALIST, HSE SPECIALIST-C Referring Provider Active Start: July 29, 2024 End: July 29, 2024 Team Status: Inactive Member Role/Relationship Status Dates Jorge Madden HSE SPECIALIST, HSE SPECIALIST-C Primary Care Provider Active Start: September 23, 2024 End: September 23, 2024 Jorge Madden HSE SPECIALIST, HSE SPECIALIST-C Referring Provider Active Start: September 23, 2024 End: September 23, 2024 Dr. Aly Carlos DO Attending Provider Active Start: September 23, 2024 End: September 23, 2024 Team Status: Active Member Role/Relationship Status Dates Jorge Madden HSE SPECIALIST, HSE SPECIALIST-C Primary Care Provider Active Start: September 23, 2024 Dr. Aly Carlos DO Attending Provider Active Start: September 23, 2024 Dr. Aly Carlos DO Referring Provider Active Start: September 23, 2024 Team Status: Inactive Member Role/Relationship Status Dates Jorge Madden HSE SPECIALIST, HSE SPECIALIST-C Primary Care Provider Active Start: September 23, 2024 End: September 23, 2024 Dr. Aly Carlos DO Attending Provider Active Start: September 23, 2024 End: September 23, 2024 Dr. Aly Carlos DO Referring Provider Active Start: September 23, 2024 End: September 23, 2024 Travelers' Aid Worker Relationship Specialty Start Date End Date Jorge Madden APRN.[employer]ELOPER [address] [place] [address] PCP - General Internal Medicine 05/24/22 FOR [...] BE BASED ON THE PRIMARY CLINICAL RECORDS. [facility]. provides no warranty or guarantee of the accuracy or completeness of information in this document.
== END | disposition home or self-care (01) ==
PROVIDERS: PCP Internal Medicine; Referring Provider Internal Medicine Gastroenterology; Visit Provider Internal Medicine Gastroenterology
DX: R10.9 Unspecified abdominal pain (principal); F10.10 Alcohol abuse, uncomplicated
CPT/HCPCS: 76705; 76981

== ENCOUNTER 2024-11-13 10:06 | Day surgery (SDC) | payer MEDICAID, SELFPAY ==
[2024-11-13] VITALS (7 sets, daily range): BP systolic 76–114; BP diastolic 52–92; PULSE 73–82; RESP 6–16; TEMP 36.1–36.5; O2SAT 98–100; BMI 39.8
[2024-11-13] MEDS: Lactated Ringers 1,000 ML 15 ML IV (10:59)
--- NOTE | 2024-11-13 11:18 | PRE.ANES_ITS ---
ASA Classification* ASA Classification ASA Classification: 3 Assessment & Plan Anesthesia* Anesthesia Assessment Anesthesia Assessment: Discussed sedation and/or anesthesia options, risks, benefits, and alternatives with patient/parents/legal guardian/POA. Questions invited. The patient/parents/legal guardian/POA seems to understand and agrees to proceed with anesthesia plan. Reviewed the physical assessment, medical history, allergy history and patient home medications list prior to surgery/procedure/anesthetic and documented any changes. Performed airway and anesthesia risk assessments. Anesthesia Type Anesthesia Type: MAC History Source History Obtained from:: Patient and Chart Anesthesia Focused Assessment* Temperature: 97.3 F Pulse Rate: 73 Blood Pressure: 114/74 Respiratory Rate: 16 Pulse Ox: 99 Oxygen Delivery Method: Room Air Airway Assessment Mouth opens: 2 cm Mallampati Score: III Teeth Condition: Chipped/Broken Neck Range of motion (ROM): Full ROM Labs Anesthesia Preop lab: CBC WBC 6.9 K/mm3 (4.4-11.0) 09/23/24 11:42 09/23/24 RBC 4.63 M/mm3 (4.2-5.4) 09/23/24 11:42 09/23/24 Hgb 14.2 g/dL (12.0-15.0) 09/23/24 11:42 09/23/24 Hct 41.0 % (37-47) 09/23/24 11:42 09/23/24 Plt Count 302 K/mm3 (150-450) 09/23/24 11:42 09/23/24 CHEMISTRY Potassium 3.8 mmol/L (3.3-5.1) 09/23/24 11:42 09/23/24 Sodium 138 mmol/L (133-145) 09/23/24 11:42 09/23/24 BUN 6 mg/dL (4-19) 09/23/24 11:42 09/23/24 Creatinine 0.61 mg/dL (0.70-1.20) L 09/23/24 11:42 Glucose 92 mg/dL (70-99) 09/23/24 11:42 09/23/24 TSH 1.890 uIU/mL (0.300-4.200) 09/23/24 11:42 04/19 COAG PT 13.1 SECONDS (11.7-14.9) 09/23/24 11:42 Pre-Assessment Diagnosis/Proposed Procedure Planned Operative Procedure(s): EGD, COLONOSCOPY Anesthesia History Anesthesia History - senior database programmer: Anesthesia History - senior database programmer Hx Hospitalization No 11/11/24 16:59 Any Problems With Anesthesia No 11/11/24 16:59 Cholinesterase deficiency No 11/11/24 16:59 You/Your Family Experience No 11/11/24 16:59 fever (hyperthermia) with Relationship Recent Exposure to Contagious No 11/13/24 10:37 Disease Does patient have nerve No 11/11/24 16:59 stimulator Patient instructed to have device shut off --Does patient have Pacemaker No 11/13/24 10:43 or ICD? When Was Last Pacemaker Check QUESTION #4 FULL TEXT: You/Your Family Experience fever (hyperthermia) with Anesthesia Last Oral Intake Last Oral intake: Last Oral Intake NPO since 05:30 11/13/24 10:43 Meds taken in AM with sips of water? Meds patient instructed to take am of surgery PONV PONV - senior database programmer: PONV - senior database programmer Female Yes 11/11/24 16:59 HX of Motion Sickness Yes 11/11/24 16:59 HX of N/V After Surgery No 11/11/24 16:59 Non-Smoker No 11/11/24 16:59 Duration of Surgery greater No 11/11/24 16:59 than 60 minutes Number of Risk Factors 2 11/11/24 16:59 PONV Score Moderate Risk 11/11/24 16:59 Height & Weight Height & Weight: Anesthesia: Height & Weight Height 5 ft 11/13/24 10:43 Weight: 92.533 kg 11/13/24 10:43 Body Mass Index (BMI) 39.8 11/13/24 10:43 Respiratory Assessment Respiratory Assessment - senior database programmer: Respiratory Tract Infection Hx - senior database programmer Hx Respiratory Tract Infection No 11/11/24 16:59 STOP Sleep Apnea STOP Sleep Apnea - senior database programmer: STOP Sleep Apnea - senior database programmer Hx Hypertension No 11/11/24 16:59 Hx Sleep Apnea No 11/11/24 16:59 CPAP BIPAP Do you snore loudly (louder Yes 11/11/24 16:59 than talking or can be heard Do you often feel tired/ No 11/11/24 16:59 fatigued/ sleepy during daytime? Has anyone observed you stop No 11/11/24 16:59 breathing during sleep? STOP Results Negative 11/11/24 16:59 QUESTION #5 FULL TEXT : Do you snore loudly (louder than talking or can be heard through closed doors)? 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 Specify any problems Hx of Preganancy in last 3 No 11/11/24 16:59 Months Nurse Filling Out Transfusion MGMARY 11/11/24 16:59 & Questions: Date: 11/11/24 11/11/24 16:59 Time: 17:01 11/11/24 16:59 Patient unable to answer at this time (ie. confused, unrespo /Reproduction History /Reproductive History - senior database programmer: /Reproductive Hx- senior database programmer Hx Now No 11/11/24 16:59 Gestational Age (in weeks): EDC: Hx Hx Para Hx Section SAB No 11/11/24 16:59 Active Medications Active Medications: Current Medications Generic Name Dose Route Start Last Admin Trade Name Freq PRN Reason Stop Dose Admin Lactated Ringer's 1,000 mls @ 15 mls/hr 11/13/24 10:15 11/13/24 10:59 IV 15 mls/hr .Q48H WILMA Administration PFSH Medical History (Updated 11/11/24 @ 17:12 by Ayana Newman) Wears glasses Bipolar disorder Arthritis Injury of head and neck Difficulty swallowing Gastric reflux Asthma Shortness of breath on exertion Smoker Leg cramps History of edema History of stress test Kidney disease Hypothyroidism Seizures Anxiety Hyperlipidemia Depression Home Medications ?Medication ?Instructions ?Recorded ?Last Taken ?Type cholecalciferol (vitamin D3) 25 25 mcg PO DAILY #10 ca ps 08/28/22 11/12/24 Rx mcg (1,000 unit) capsule levothyroxine 25 mcg tablet 25 mcg PO DAILY #10 tabs 0 08/28/22 11/13/24 06:00 Rx albuterol sulfate 90 mcg/actuation 1 - 2 puff inhalati on Q4H PRN PRN 09/28/22 Unknown Rx aerosol inhaler (Ventolin HFA) Wheezing ##1 venlafaxine 75 mg capsule,extended 150 mg PO DAILY Unknown History release 24 hr bisacodyl 5 mg tablet,delayed 20 mg (4 x 5 mg) PO ONCE #4 tabs 11/10/24 11/12/24 Rx release polyethylene glycol 3350 17 238 g PO ONCE #238 grams 0 11/10/24 11/13/24 Rx gram/dose oral powder levetiracetam 750 mg tablet 750 mg PO BID 11/11/24 09:30 History (Keppra) tiotropium bromide 2.5 2 inh inhalation QHS 2 5 11/11/24 History mcg/actuation mist for inhalation (Spiriva Respimat) amoxicillin 875 mg-potassium 1 tab PO BID 11/13/24 History clavulanate 125 mg tablet Allergy/AdvReac Type Severity Reaction Status Date / Time quetiapine Allergy Severe seizures Verified 11/13/24 10:33 aspirin Allergy Unknown Verified 11/13/24 10:33 latex Allergy Itching Verified 11/13/24 10:33 pear (Pear) Allergy Hives Verified 11/13/24 10:33 Penicillins Allergy Hives Verified 11/11/24 16:51 shellfish derived Allergy Hives Verified 11/13/24 10:33 erythromycin base AdvReac Intermediate vomiting Verified 11/13/24 10:33 trazodone AdvReac seizures Verified 11/13/24 10:33 Family History Grandmother Lung cancer Ovarian cancer Diabetes Grandfather Lung cancer Prostate cancer Diabetes Surgical History (Updated 11/11/24 @ 17:12 by Ayana Newman) History of carpal tunnel surgery of left wrist History of cystoscopy History of hand surgery S/P tubal ligation S/P Social History (Updated 09/23/24 @ 11:06 by Seble Morgan) Smoking Status: Current every day smoker tobacco type: cigarettes alcohol intake: former year quit: 2021 substance use type: does not use caffeine: Yes what type of physical activity do you participate in: none seatbelt use: always do you feel safe at home: Yes additional social history: Single Review of Systems (Anesthesia) ROS Narrative System reviewed and no additional complaints, except as documented.
--- NOTE | 2024-11-13 11:30 | COLBX_PTH ---
PATIENT: ERICK DOYLE LOC: [facility] U#:[id number] AGE/SX: 49/F ROOM: RE11/13/[address]: Dr. lAy Carlos DO : 1975 BED: DIS: 11/13/2024 SPEC #: [id number] RECD: 11/13/24 13:22 STATUS: BYRON RECelena #: [id number] IKER: 11/13/24 11:[address]: Aly Carlos DEPT: SURGICAL PATHOLOGY RECD BY: Sterling Naylor ENTERED: 11/13/24 14:50 SP TYPE: COLON BX OTHR DR: Shantel Packer, BOWLING BALL GRADER AND MARKER-C Tissues: A - Duodenum, NOS B - Gastric mucous membrane C - Cecum, NOS Procedures: Immunohistochemical Stains Surgery Specimen Level IV HEADER OPERATION: Colonoscopy with biopsy, EGD with biopsy PRE-OP DIAGNOSIS: Encounter for screening colonoscopy, abdominal pain TISSUE SUBMITTED: A- Duodenum biopsy, B- Gastric body biopsy, C- Cecum polyp biopsy MICROSCOPIC DIAGNOSIS A. Small intestine, duodenum, biopsy: * Small bowel mucosa with no pathologic change B. Stomach, gastric body, biopsy: * Oxyntic mucosa with mild chronic inflammation * The immunostain for Helicobacter pylori organisms is negative C. Colon, cecum, polyp, biopsy: * Sessile serrated adenoma MICROSCOPIC DESCRIPTION Slides are reviewed. All matched controls reacted appropriately. These tests were developed and their performance characteristics determined by [facility]. They may not have been cleared or approved by the U.S. Food and Drug Administration. The FDA has determined that such clearance or approval is not necessary. The above immunohistochemical/dualISH markers are viewed by the Pathologist. GROSS DESCRIPTION A. Received in fixative is one container labeled with the patient's name and designated Duodenum biopsy. The specimen consists of one irregular fragment of light dan soft tissue that measures 0.5 cm. The specimen is totally submitted in one cassette. B. Received in fixative is one container labeled with the patient's name and designated Gastric body biopsy. The specimen consists of multiple irregular fragments of light dan soft tissue that in aggregate measure 0.9 x 0.5 x 0.1 cm. The specimen is totally submitted in one cassette. C. Received in fixative is one container labeled with the patient's name and designated Cecum polyp biopsy. The specimen consists of three irregular fragments of light dan soft tissue that measure 0.3 to 0.5 cm. The specimen is totally submitted in one cassette. NE 11/13/2024 CPT:10470n7,04993
--- NOTE | 2024-11-13 11:44 | PCM.HP.STD ---
[facility] - General General Date of Admission: 11/13/24 Date of Service: 11/13/24 Chief Complaint: abdominal pain, nausea and bloating. HPI Narrative ERICK DOYLE, is a 49 F who presents the evaluation of abdominal pain, nausea and bloating. . *BGI established 7.1.25 with referral from her PCP for GI symptoms. Pt reports intermittent symptoms of nausea, alternating bowel movements, abd pain, gas/bloating, HB, and difficulty swallowing. Pt reports she has never had a colonoscopy. She has a history of alcohol abuse without cirrhosis. She was told she had a fatty liver. She has never had elastography. She did have a CT scan abdomen pelvis back in 2021. It showed hepatomegaly without splenomegaly. Also pancreas appeared normal as well as all associated GI structures. She did have some bloating and intermittent nausea. She was diagnosed with HPV. She has been followed by gynecology. She has no previous history of HIV or hepatitis. She does not drink alcohol anymore. She does have a seizure disorder. [facility] Medical History Wears glasses Bipolar disorder Arthritis Injury of head and neck Difficulty swallowing Gastric reflux Asthma Shortness of breath on exertion Smoker Leg cramps History of edema History of stress test Kidney disease Hypothyroidism Seizures Anxiety Hyperlipidemia Depression Home Medications ?Medication ?Instructions ?Recorded ?Last Taken ?Type cholecalciferol (vitamin D3) 25 25 mcg PO DAILY #10 caps 08/28/22 11/12/24 Rx mcg (1,000 unit) capsule levothyroxine 25 mcg tablet 25 mcg PO DAILY #10 tabs 08/28/22 11/13/24 06:00 Rx albuterol sulfate 90 mcg/actuation 1 - 2 puff inhalation Q4H PRN PRN 09/28/22 Unknown Rx aerosol inhaler (Ventolin HFA) Wheezing ##1 venlafaxine 75 mg capsule,extended 150 mg PO DAILY 11/06/22 Unknown History release 24 hr bisacodyl 5 mg tablet,delayed 20 mg (4 x 5 mg) PO ONCE #4 tabs 11/10/24 11/12/24 Rx release polyethylene glycol 3350 17 238 g PO ONCE #238 grams 11/10/24 11/13/24 Rx gram/dose oral powder levetiracetam 750 mg tablet 750 mg PO BID 11/11/24 11/13/24 09:30 History (Keppra) tiotropium bromide 2.5 2 inh inhalation QHS 11/11/24 11/11/24 History mcg/actuation mist for inhalation (Spiriva Respimat) amoxicillin 875 mg-potassium 1 tab PO BID 11/13/24 11/11/24 History clavulanate 125 mg tablet Allergy/AdvReac Type Severity Reaction Status Date / Time quetiapine Allergy Severe seizures Verified 11/13/24 10:33 aspirin Allergy Unknown Verified 11/13/24 10:33 latex Allergy Itching Verified 11/13/24 10:33 pear (Pear) Allergy Hives Verified 11/13/24 10:33 Penicillins Allergy Hives Verified 11/11/24 16:51 shellfish derived Allergy Hives Verified 11/13/24 10:33 erythromycin base AdvReac Intermediate vomiting Verified 11/13/24 10:33 trazodone AdvReac seizures Verified 11/13/24 10:33 Family History Grandmother Lung cancer Ovarian cancer Diabetes Grandfather Lung cancer Prostate cancer Diabetes Surgical History History of carpal tunnel surgery of left wrist History of cystoscopy History of hand surgery S/P tubal ligation S/P Social History Smoking Status: Current every day smoker tobacco type: cigarettes alcohol intake: former year quit: 2021 substance use type: does not use caffeine: Yes what type of physical activity do you participate in: none seatbelt use: always do you feel safe at home: Yes additional social history: Single ROS Constitutional Constitutional: Denies fatigue, fever(s), poor appetite, weight gain or weight loss Gastrointestinal Gastrointestinal: Denies belching, bloating, change in bowel habits, change in stool character, chewing difficulty, coffee ground emesis, constipation, cramping, diarrhea, dyspepsia, dysphagia, early satiety, excessive flatus, fecal incontinence, heartburn, hematemesis, hematochezia, hemorrhoids, loose stools, melena, nausea, odynophagia, rectal bleeding, tenesmus, vomiting or weight changes Vital Signs Vital Signs Vital Signs: 11/13/24 10:37 11/13/24 10:43 11/13/24 11:18 Temperature 97.3 F L 97.3 F L Temperature Source Temporal Pulse Rate 73 73 Respiratory Rate 16 16 Respiratory Pattern Normal Blood Pressure 114/74 114/74 Blood Pressure Mean 87 Blood Pressure Source Monitor Blood Pressure Position Semi-Fowlers Blood Pressure Location Left Arm Pulse Ox 99 99 Oxygen Delivery Method Room Air Room Air Weight Weight: 204 lb Body Mass Index (BMI) 39.8 Physical Exam Const alert, oriented x3, no apparent distress and healthy appearing General Appearance: cooperative GI normal to inspection, nondistended, normoactive bowel sounds, soft to palpation, non-tender and non-distended Percussion: normal to percussion Rectal Exam: deferred Assessment & Plan Assessment/Plan (1) Encounter for screening colonoscopy: (2) Abdominal pain: PLAN: Plan Assessment and Plan Assessment and Plan (1) Abdominal pain: Status: Acute Plan: Due to her having some intermittent abdominal pain also we will perform an upper endoscopy prior to her colonoscopy. (2) Alcohol abuse: Status: Acute Plan: Due to history of alcohol abuse in the past. Will recheck her for chronic hepatitis C chronic hepatitis B. We will also check biochemical workup for any other diseases that may affect liver including celiac disease and hemoglobin A1c. (3) Encounter for screening colonoscopy: Status: Acute Plan: She will undergo screening colonoscopy as she has never had a colonoscopy in the past. She was explained alternatives, risk and benefits include not withstanding bleeding, infection, sepsis, perforation, need for emergent urgent . She will have an ASA of 3. Orders: Orders DAWSON + Protein Elect, Serum Today F10.10 - Alcohol abuse, uncomplicated, R10.9 - Unspecified abdominal pain LDH Today F10.10 - Alcohol abuse, uncomplicated, R10.9 - Unspecified abdominal pain Celiac Disease Profile Today F10.10 - Alcohol abuse, uncomplicated, R10.9 - Unspecified abdominal pain Iron Today F10.10 - Alcohol abuse, uncomplicated, R10.9 - Unspecified abdominal pain Immunoglobulins G/A/M/E Today F10.10 - Alcohol abuse, uncomplicated, R10.9 - Unspecified abdominal pain CRP Today F10.10 - Alcohol abuse, uncomplicated, R10.9 - Unspecified abdominal pain Erythrocyte Sed Rate Today F10.10 - Alcohol abuse, uncomplicated, R10.9 - Unspecified abdominal pain ANCA Today F10.10 - Alcohol abuse, uncomplicated, R10.9 - Unspecified abdominal pain Comprehensive Metabolic Profil Today F10.10 - Alcohol abuse, uncomplicated, R10.9 - Unspecified abdominal pain CBC W/Diff, Automated Today F10.10 - Alcohol abuse, uncomplicated, R10.9 - Unspecified abdominal pain Quantiferon TB-Gold+ Today F10.10 - Alcohol abuse, uncomplicated, R10.9 - Unspecified abdominal pain Thyroid Stim Hormone (TSH) Today F10.10 - Alcohol abuse, uncomplicated, R10.9 - Unspecified abdominal pain Hemoglobin A1c Today F10.10 - Alcohol abuse, uncomplicated, R10.9 - Unspecified abdominal pain Prothrombin Time w/INR Today F10.10 - Alcohol abuse, uncomplicated, R10.9 - Unspecified abdominal pain Hepatitis Panel Acute Today F10.10 - Alcohol abuse, uncomplicated, R10.9 - Unspecified abdominal pain Allergen, Food Profile Today F10.10 - Alcohol abuse, uncomplicated, R10.9 - Unspecified abdominal pain LUCIANA Comprehensive Panel Today F10.10 - Alcohol abuse, uncomplicated, R10.9 - Unspecified abdominal pain
[2024-11-13] MEDS: Lidocaine 1% (5 ml sdv) 5 ML Vial 10 ML IV (11:49)
[2024-11-13] MEDS: fentaNYL 100 MCG/2 ML Ampul IV (12:12)
--- NOTE | 2024-11-13 12:16 | PCM.POST.ANE ---
Anesthesia: Postop Eval I Current Vital Signs Temperature: 97 F Pulse Rate: 77 Blood Pressure: 76/52 Respiratory Rate: 14 Pulse Ox: 98 Oxygen Delivery Method: Room Air Assessment Airway patent: Yes Spontaneous unlabored respirations: Yes Mental status: Awake and Calm nausea: No Vomiting: No Anesthesia Complication: No Fluid Hydration Crystalloid volume administer (ml): 200 Total IV fluid infused: 200 Progress Note Anesthesia document: Postop Eval 1 completed: Yes
--- NOTE | 2024-11-13 12:20 | OP.EGD_ITS ---
Patient Name: Cathy Cam Procedure Date: 11/13/2024 11:41 AM Date of : 1975 Age: 49 Procedure: Upper GI endoscopy Indications: Epigastric abdominal pain, Functional Dyspepsia, Failure to respond to medical treatment Providers: Aly Carlos DO Referring MD: Shantel Packer Tube Blower, Tube Blower-c Medicines: Monitored Anesthesia Care Patient Profile: This is a 49 year old female. Refer to note in patient chart for documentation of history and physical. Patient has symptoms. Complications: No immediate complications. Procedure: Pre-Anesthesia Assessment: - Prior to the procedure, a History and Physical was performed, and patient medications and allergies were reviewed. The patient is competent. The risks and benefits of the procedure and the sedation options and risks were discussed with the patient. All questions were answered and informed consent was obtained. Patient identification and proposed procedure were verified by the physician in the pre-procedure area. Mental Status Examination: alert and oriented. Airway Examination: normal oropharyngeal airway and neck mobility. Respiratory Examination: clear to auscultation. CV Examination: normal. Prophylactic Antibiotics: The patient does not require prophylactic antibiotics. Prior Anticoagulants: The patient has taken no anticoagulant or antiplatelet agents. ASA Grade Assessment: II - A patient with mild systemic disease. After reviewing the risks and benefits, the patient was deemed in satisfactory condition to undergo the procedure. The anesthesia plan was to use monitored anesthesia care (MAC). Immediately prior to administration of medications, the patient was re-assessed for adequacy to receive sedatives. The heart rate, respiratory rate, oxygen saturations, blood pressure, adequacy of pulmonary ventilation, and response to care were monitored throughout the procedure. The physical status of the patient was re-assessed after the procedure. After obtaining informed consent, the endoscope was passed under direct vision. Throughout the procedure, the patient's blood pressure, pulse, and oxygen saturations were monitored continuously. The Colonoscope was introduced through the mouth, and advanced to the third part of the duodenum. Small bowel enteroscopy was deemed necessary. The upper GI endoscopy was accomplished without difficulty. The patient tolerated the procedure well. Scope In: 11:55:18 AM Scope Out: 11:58:36 AM Total Procedure Duration Time 0 hours 3 minutes 18 seconds Findings: The examined esophagus was normal. Diffuse mild inflammation characterized by congestion (edema) and erythema was found in the gastric body. Biopsies were taken with a cold forceps for histology. Verification of patient identification for the specimen was done. Biopsies were taken with a cold forceps for Helicobacter pylori testing. Verification of patient identification for the specimen was done. Estimated blood loss was minimal. No gross lesions were noted in the entire examined duodenum. Biopsies were taken with a cold forceps for histology. Verification of patient identification for the specimen was done. Estimated blood loss was minimal. Impression: - Normal esophagus. - Chronic gastritis. Biopsied. - No gross lesions in the entire examined duodenum. Biopsied. Recommendation: - Discharge patient to home. - Resume previous diet. - Continue present medications. - Await pathology results. Procedure Code(s): --- Professional --- 56010, Small intestinal endoscopy, enteroscopy beyond second portion of duodenum, not including ileum; with biopsy, single or multiple CPT copyright 2021 [employer]. All rights reserved. The codes documented in this report are preliminary and upon signal engineer review may be revised to meet current compliance requirements. Aly Carlos DO 11/13/2024 12:20:18 PM This report has been signed electronically. Number of Addenda: 0 Note Initiated On: 11/13/2024 11:41 AM
--- NOTE | 2024-11-13 12:21 | OP.PROVAT_ITS ---
11/13/2024 Shantel Packer Np, Chemical Production Engineer-c Re : Upper GI endoscopy procedure for Cathy Cam Dear Ochoa This procedure was performed on October. My impressions and recommendations are as follows: Impressions : - Normal esophagus. - Chronic gastritis. Biopsied. - No gross lesions in the entire examined duodenum. Biopsied. Recommendations : - Discharge patient to home. - Resume previous diet. - Continue present medications. - Await pathology results. My findings are described in the full procedure note, which is enclosed. If I can be of further assistance, please feel free to contact me at . Sincerely, Aly Carlos, 11/13/2024 12:20:18 PM This report has been signed electronically.
--- NOTE | 2024-11-13 12:23 | POSTOPAN2_ITS ---
Anesthesia Postop Eval I Sum Postop Eval Completion status Anesthesia document: Postop Eval 1 completed: Yes Anesthesia Postop Eval I Summary Anesthesia Postop Eval I Summary: Anesthesia Postop Eval I: Assessment Summary Airway patent Yes 11/13/24 12:16 [email or web address] Spontaneous unlabored Yes 11/13/24 12:16 BALCONY [email or web address] respirations Mental status Awake,Calm 11/13/24 12:16 [email or web address] [email or web address] nausea No 11/13/24 12:16 BALCONY [email or web address] Vomiting No 11/13/24 12:16 BALCONY [email or web address] Anesthesia Postop Eval I: Fluid Summary Crystalloid volume administer 200 11/13/24 12:16 [email or web address] (ml) Colloids volume administered ( ml) Blood Product volume administered (ml) Total IV fluid infused 200 11/13/24 12:16 BALCONY [email or web address] Anesthesia Postop Eval I: Summary Notes Anesthesia Complication No 11/13/24 12:16 BALCONY [email or web address] Anesthesia Complication Comment: Post-operative progress note Anesthesia: Postop Eval II Evaluation Mental status: Awake and Calm Pain Level: 0 nausea: No Vomiting: No Complications Anesthesia Complication: No
--- NOTE | 2024-11-13 12:23 | PCM.POSTANE2 ---
Anesthesia Postop Eval I Sum Postop Eval Completion status Anesthesia document: Postop Eval 1 completed: Yes Anesthesia Postop Eval I Summary Anesthesia Postop Eval I Summary: Anesthesia Postop Eval I: Assessment Summary Airway patent Yes 11/13/24 12:16 REPAIRER [email or web address] [email or web address] Spontaneous unlabored Yes 11/13/24 12:16 REPAIRER WOOD FURNITURE.MDOT respirations Mental status Awake,Calm 11/13/24 12:16 REPAIRER WOOD [email or web address] nausea No 11/13/24 12:16 REPAIRER WOOD [email or web address] Vomiting No 11/13/24 12:16 REPAIRER WOOD [email or web address] Anesthesia Postop Eval I: Fluid Summary Crystalloid volume administer 200 11/13/24 12:16 REPAIRER WOOD [email or web address] (ml) Colloids volume administered ( ml) Blood Product volume administered (ml) Total IV fluid infused 200 11/13/24 12:16 REPAIRER WOOD [email or web address] Anesthesia Postop Eval I: Summary Notes Anesthesia Complication No 11/13/24 12:16 REPAIRER WOOD [email or web address] Anesthesia Complication Comment: Post-operative progress note Anesthesia: Postop Eval II Evaluation Mental status: Awake and Calm Pain Level: 0 nausea: No Vomiting: No Complications Anesthesia Complication: No
--- NOTE | 2024-11-13 12:24 | OP.PROVAT_ITS ---
11/13/2024 Shantel Packre Np, Knockup Worker-c Re : Colonoscopy procedure for Cathy Cam Harperr Ochoa This procedure was performed on October. My impressions and recommendations are as follows: Impressions : - Diverticulosis in the recto-sigmoid colon and in the sigmoid colon. - One 6 mm polyp in the cecum, removed with a cold biopsy forceps. Resected and retrieved. - The examination was otherwise normal on direct and retroflexion views. Recommendations : - Discharge patient to home. - Resume previous diet. - Continue present medications. - Await pathology results. - Repeat colonoscopy in 5 years for surveillance. My findings are described in the full procedure note, which is enclosed. If I can be of further assistance, please feel free to contact me at . Sincerely, Aly Carlos, 11/13/2024 12:24:17 PM This report has been signed electronically.
--- NOTE | 2024-11-13 12:24 | OP.COLON_ITS ---
Patient Name: Cathy Cam Procedure Date: 11/13/2024 11:58 AM Date of : 1975 Age: 49 Procedure: Colonoscopy Indications: Screening for colorectal malignant neoplasm Providers: Aly Carlos DO Referring MD: Shantel Packer Firefighter Marine, Firefighter Marine-c Medicines: Monitored Anesthesia Care Patient Profile: This is a 49 year old female. Refer to note in patient chart for documentation of history and physical. Patient has symptoms. Last Colonoscopy: none. The patient's first colonoscopy is today. Complications: No immediate complications. Procedure: Pre-Anesthesia Assessment: - Prior to the procedure, a History and Physical was performed, and patient medications and allergies were reviewed. The patient is competent. The risks and benefits of the procedure and the sedation options and risks were discussed with the patient. All questions were answered and informed consent was obtained. Patient identification and proposed procedure were verified by the physician in the pre-procedure area. Mental Status Examination: alert and oriented. Airway Examination: normal oropharyngeal airway and neck mobility. Respiratory Examination: clear to auscultation. CV Examination: normal. Prophylactic Antibiotics: The patient does not require prophylactic antibiotics. Prior Anticoagulants: The patient has taken no anticoagulant or antiplatelet agents. ASA Grade Assessment: II - A patient with mild systemic disease. After reviewing the risks and benefits, the patient was deemed in satisfactory condition to undergo the procedure. The anesthesia plan was to use monitored anesthesia care (MAC). Immediately prior to administration of medications, the patient was re-assessed for adequacy to receive sedatives. The heart rate, respiratory rate, oxygen saturations, blood pressure, adequacy of pulmonary ventilation, and response to care were monitored throughout the procedure. The physical status of the patient was re-assessed after the procedure. After I obtained informed consent, the scope was passed under direct vision. Throughout the procedure, the patient's blood pressure, pulse, and oxygen saturations were monitored continuously. The Colonoscope was introduced through the anus and advanced to the cecum, identified by appendiceal orifice and ileocecal valve. The colonoscopy was performed without difficulty. The patient tolerated the procedure well. The quality of the bowel preparation was adequate. The ileocecal valve, appendiceal orifice, and rectum were photographed. Scope In: 12:01:00 PM Scope Withdrawal Time 0 hours 10 minutes 5 seconds Scope Out: 12:13:34 PM Total Procedure Duration Time 0 hours 12 minutes 34 seconds Findings: The perianal and digital rectal examinations were normal. A few small-mouthed diverticula were found in the recto-sigmoid colon and sigmoid colon. A 6 mm polyp was found in the cecum. The polyp was sessile. The polyp was removed with a cold biopsy forceps. Resection and retrieval were complete. Verification of patient identification for the specimen was done. Estimated blood loss was minimal. The exam was otherwise without abnormality on direct and retroflexion views. Impression: - Diverticulosis in the recto-sigmoid colon and in the sigmoid colon. - One 6 mm polyp in the cecum, removed with a cold biopsy forceps. Resected and retrieved. - The examination was otherwise normal on direct and retroflexion views. Recommendation: - Discharge patient to home. - Resume previous diet. - Continue present medications. - Await pathology results. - Repeat colonoscopy in 5 years for surveillance. Procedure Code(s): --- Professional --- 89355, Colonoscopy, flexible; with biopsy, single or multiple CPT copyright 2021 [employer]. All rights reserved. The codes documented in this report are preliminary and upon meter inspector review may be revised to meet current compliance requirements. Aly Carlos DO 11/13/2024 12:24:17 PM This report has been signed electronically. Number of Addenda: 0 Note Initiated On: 11/13/2024 11:58 AM
--- NOTE | 2024-11-13 12:49 | POSTOPAN2_ITS ---
Anesthesia Postop Eval I Sum Postop Eval Completion status Anesthesia document: Postop Eval 1 completed: Yes Anesthesia Postop Eval I Summary Anesthesia Postop Eval I Summary: Anesthesia Postop Eval I: Assessment Summary Airway patent Yes 11/13/24 12:16 FARE [email or web address] Spontaneous unlabored Yes 11/13/24 12:16 FARE [email or web address] respirations Mental status Awake,Calm 11/13/24 12:23 FARE [email or web address] nausea No 11/13/24 12:23 FARE [email or web address] Vomiting No 11/13/24 12:23 FARE [email or web address] Anesthesia Postop Eval I: Fluid Summary Crystalloid volume administer 200 11/13/24 12:16 FARE COLLECTOR.MDOT (ml) Colloids volume administered ( ml) Blood Product volume administered (ml) Total IV fluid infused 200 11/13/24 12:16 FARE [email or web address] Anesthesia Postop Eval I: Summary Notes Anesthesia Complication No 11/13/24 12:23 FARE [email or web address].MDOT Anesthesia Complication Comment: Post-operative progress note Anesthesia: Postop Eval II Evaluation Mental status: Awake Pain Level: 0 nausea: No Vomiting: No Complications Anesthesia Complication: No
--- NOTE | 2024-11-13 12:49 | PCM.POSTANE2 ---
Anesthesia Postop Eval I Sum Postop Eval Completion status Anesthesia document: Postop Eval 1 completed: Yes Anesthesia Postop Eval I Summary Anesthesia Postop Eval I Summary: Anesthesia Postop Eval I: Assessment Summary Airway patent Yes 11/13/24 12:16 BURLING AND JOINING [email or web address] Spontaneous unlabored Yes 11/13/24 12:16 BURLING AND JOINING [email or web address] respirations Mental status Awake,Calm 11/13/24 12:23 BURLING AND JOINING [email or web address] nausea No 11/13/24 12:23 BURLING AND JOINING [email or web address] Vomiting No 11/13/24 12:23 BURLING AND JOINING [email or web address] Anesthesia Postop Eval I: Fluid Summary Crystalloid volume administer 200 11/13/24 12:16 BURLING AND JOINING [email or web address] (ml) Colloids volume administered ( ml) Blood Product volume administered (ml) Total IV fluid infused 200 11/13/24 12:16 BURLING AND JOINING [email or web address] Anesthesia Postop Eval I: Summary Notes Anesthesia Complication No 11/13/24 12:23 BURLING AND JOINING [email or web address] Anesthesia Complication Comment: Post-operative progress note Anesthesia: Postop Eval II Evaluation Mental status: Awake Pain Level: 0 nausea: No Vomiting: No Complications Anesthesia Complication: No
== END 2024-11-13 13:07 | disposition home or self-care (01) ==
LOC: EN 10:07 → AC 10:08
PROVIDERS: PCP Internal Medicine; Referring Provider Internal Medicine; Visit Provider Internal Medicine Gastroenterology
PROC: 0DJD8ZZ Inspection of Lower Intestinal Tract, Via Natural or Artificial Opening Endoscopic (ICD-10-PCS; CPT 45378; principal; 2024-11-13 11:25)
DX: Z12.11 Encounter for screening for malignant neoplasm of colon (principal); F31.9 Bipolar disorder, unspecified; G40.909 Epilepsy, unspecified, not intractable, without status epilepticus; D12.0 Benign neoplasm of cecum; K29.50 Unspecified chronic gastritis without bleeding; K57.30 Diverticulosis of large intestine without perforation or abscess without bleeding; K21.9 Gastro-esophageal reflux disease without esophagitis; E03.9 Hypothyroidism, unspecified; F41.9 Anxiety disorder, unspecified; E78.5 Hyperlipidemia, unspecified; F10.10 Alcohol abuse, uncomplicated; J45.909 Unspecified asthma, uncomplicated; Z79.51 Long term (current) use of inhaled steroids; Z79.899 Other long term (current) drug therapy; Z79.890 Hormone replacement therapy; Z87.891 Personal history of nicotine dependence
CPT/HCPCS: 45380; 44361; 88305; 88342

== ENCOUNTER → 2025-03-04 | Outpatient (CLI) | payer MEDICAID, SELFPAY ==
[2025-03-04 10:26] LABS: Hematocrit 44.6 % (37-47); Hemoglobin 14.9 g/dL (12.0-15.0); Immature Granulocytes Count 0.030 X10^3/uL (0.0-0.0); Mean Corp Hgb Conc 33.4 g/dL (32-36); Mean Corpuscular Volume 86.9 fL (81-99); Mean Platelet Vol. 10.2 fl (6.2-12.0); NRBC Flagged by Analyzer 0 % (0-5); Platelet Count 340 K/mm3 (150-450); RBC Distribution Width CV 12.3 % (11.6-14.6); RBC Distribution Width SD 39.3 fl (35.1-43.9); Red Blood Count 5.13 M/mm3 (4.2-5.4); White Blood Count 7.0 K/mm3 (4.4-11.0)
[2025-03-04 10:58] LABS: AST(SGOT) 15 U/L (<=31); Alanine Aminotransfer ALT/SGPT 15 U/L (<=34); Albumin, Serum 4.3 g/dL (3.5-5.0); Alkaline Phosphatase 107 U/L (35-104); Anion Gap 11 (5-15); BUN 6 mg/dL (4-19); BUN/Creat Ratio 8.1 RATIO (10-20); Calcium,Total 9.8 mg/dL (7.6-11.0); Carbon Dioxide 27.4 mmol/L (21.0-32.0); Chloride 102 mmol/L (98-108); Globulin 3.0 g/dL (2.2-4.2); Glucose 78 mg/dL (70-99); Potassium 4.5 mmol/L (3.3-5.1)
[2025-03-04 11:42] LABS: CRP 8.70 mg/L (0.0-3.0); LDH 181 U/L (84-246)
[2025-03-06 15:09] LABS: Albumin 3.7 g/dL (2.9-4.4); Gamma Globulin 0.9 g/dL (0.4-1.8); Immunoglobulin A 187 mg/dL (87-352); Immunoglobulin G 739 mg/dL (586-1602); Immunoglobulin M 251 mg/dL (26-217); PROEL- TOTAL PROTEIN 6.7 g/dL (6.0-8.5)
== END | disposition home or self-care (01) ==
LOC: LAB 08:55
PROVIDERS: PCP Internal Medicine; Referring Provider Internal Medicine Gastroenterology; Visit Provider Internal Medicine Gastroenterology
DX: R74.8 Abnormal levels of other serum enzymes (principal); F10.10 Alcohol abuse, uncomplicated
CPT/HCPCS: 36415; 80053; 82784; 83615; 84165; 84443; 85025; 85652; 86140; 86334